=== PATIENT | female | born 2000 | race Caucasian/White ===

== ENCOUNTER 2023-07-18 07:06 | Outpatient (CLI) | payer MEDICAID, SELFPAY ==
--- OUTSIDE RECORDS SUMMARY | 2023-07-18 07:10 | XMS_ITS | Clinical Summary ---
Author Name Unknown Organization [facility] s & [facility] Address [place], [place] [address] Care Team Providers Care Director Of Automation Name Role Phone None Primary Care Provider Unavailabl e Allergies No known active allergies Medications Medication Sig Dispensed Refills Start Date End Date Status ondansetron (ZOFRAN ODT) 4 mg disintegrating tabletIndications:Abdom inal pain during , first trimester,Nausea Place 1 Tablet (4 mg) on the tongue every 8 hours if needed for Nausea/Vomiting . 12 Tablet 06/24/2023 Active Encounters Date Type Department Care Team Description 06/24/2023 3:44 PM CDT - 06/24/2023 7:50 PM CDT Emergency [facility] [address] [place] [address] Una Franks NP Abdominal pain during , first trimester (Primary Dx); Nausea Discharge Disposition: Home Self Care 06/24/2023 Travel from Last 3 Months Social History Tobacco Use Types Packs/Day Years Used Date Smoking Tobacco: Never Smokeless Tobacco: Never Tobacco Cessation:Counseling Given: Not Answered Alcohol Use Standard Drinks/Week Comments Never 0 (1 standard drink = 0.6 oz pur e alcohol) Sex and Gender Information Value Date Recorded Sex Assigned at Not on file Gender Identity Not on file Sexual Orientation Not on file Obstetrics History Last Filed Vital Signs Vital Sign Reading Time Taken Comments Blood Pressure 105/59 06/24/2023 7:14 PM CDT Pulse 66 06/24/2023 7:14 PM CDT Temperature 37 ??C (98.6 ??F) 06/24/2023 3:49 PM CDT Respiratory Rate 18 06/24/2023 3:49 PM CDT Oxygen Saturation 100% 06/24/2023 7:14 PM CDT Inhaled Oxygen Concentration - - Weight 70.8 kg (156 lb) 06/24/2023 3:49 PM CDT Height 154.9 cm (5' 1) 06/24/2023 4:01 PM CDT Body Mass Index 29.48 06/24/2023 3:49 PM CDT Plan of Treatment Not on file Procedures Procedure Name Priority Date/Time Associated Diagnosis Comments US OB 1ST TRI TWINS TA AND TV STAT 06/24/2023 6:18 PM CDT RH(D) TYPE STAT 06/24/2023 4:30 PM CDT CBC WITH AUTO DIFFERENTIAL STAT 06/24/2023 4:30 PM CDT BASIC METABOLIC PANEL STAT 06/24/2023 4:30 PM CDT CBC WITH AUTO DIFFERENTIAL STAT 06/24/2023 4:30 PM CDT HCG BETA QUANT, STAT 06/24/2023 4:30 PM CDT URINE STAT 06/24/2023 4:01 PM CDT UA W/ SEDIMENT EXAM REFLEXED PER CRITERIA STAT 06/24/2023 4:01 PM CDT from Last 3 Months Results * US OB 1ST TRI TWINS TA AND TV (06/24/2023 6:18 PM CDT) Anatomical Region Laterality Modality Ultrasound 06/24/2023 7:36 PM CDT Impressions 06/24/2023 7:36 PM CDT Viable twin intrauterine . Small subchorionic hemorrhage. No other abnormality. Dictated by Darrius Argueta MD @ 06/24/2023 7:36:39 PM (Electronically Signed) Narrative 06/24/2023 7:36 PM CDT For Patients: ??As a result of the Cures Act, medical imaging exams and procedure reports are released immediately into your electronic medical record. ??You may view this report before your referring provider. ??If you have questions, please contact your health care provider. INDICATION: First trimester dates and size. TECHNIQUE: Ultrasound OB pelvis transabdominal and transvaginal. Real-time ramírez-scale imaging of the pelvis was performed. COMPARISON: None. FINDINGS: Sonographic imaging demonstrates a twin intrauterine gestation. Fetus A demonstrates a regular cardiac rate measuring 132 beats per minute. The embryo`s crown rump length measurement of 0.8 cm corresponds to a gestational age of 6 weeks 6 days with a sonographic due date of February 11, 2024. Fetus B demonstrates a regular cardiac rate measuring 132 beats per minute. The embryo`s crown rump length measurement of 0.7 cm corresponds to a gestational age of 6 weeks 5 days with a sonographic due date of February 12, 2024. There are 2 normal-appearing yolk sacs. There are no gross abnormalities noted within the embryos at this early state of development. The placenta has not yet developed. There is a small perigestational hemorrhage. The ovaries are of normal size. There are no suspicious fluid collections noted in the cul-de-sac. Procedure Note Darrius Argueta MD - 06/24/2023 For Patients: As a result of the Century Cures Act, medical imagingexams and procedure reports are released immediately into your electronicmedical record. You may view this report before your referring provider.If you have questions, please contact your health care provider. INDICATION: First trimester dates and size. TECHNIQUE: Ultrasound OB pelvis transabdominal and transvaginal. Real-time ramírez- scaleimaging of the pelvis was performed. COMPARISON: None. FINDINGS: Sonographic imaging demonstrates a twin intrauterine gestation. Fetus A demonstrates a regular cardiac rate measuring 132 beats perminute. The embryo`s crown rump length measurement of 0.8 cm correspondsto a gestational age of 6 weeks 6 days with a sonographic due date ofFebruary 11, 2024. Fetus B demonstrates a regular cardiac rate measuring 132 beats perminute. The embryo`s crown rump length measurement of 0.7 cm correspondsto a gestational age of 6 weeks 5 days with a sonographic due date ofFebruary 12, 2024. There are 2 normal-appearing yolk sacs. There are no gross abnormalitiesnoted within the embryos at this early state of development. The placentahas not yet developed. There is a small perigestational hemorrhage. The ovaries are of normal size. There are no suspicious fluid collectionsnoted in the cul-de-sac. IMPRESSION: Viable twin intrauterine . Small subchorionic hemorrhage. Noother abnormality. Dictated by Darrius Argueta MD @ 06/24/2023 7:36:39 PM (Electronically Signed) Una Franks HOUSEKEEPING WORKER US * CBC WITH AUTO DIFFERENTIAL (06/24/2023 4:30 PM CDT) WHITE BLOOD COUNT 10.2 4.5 - 11.0 thou/cu mm 06/24/2023 4:39 PM [facility] RED BLOOD COUNT 4.34 4.00 - 5.20 mil/cu mm 06/24/2023 4:39 PM [facility] HEMOGLOBIN 12.7 12.0 - 16.0 g/dL 06/24/2023 4:39 PM [facility] HEMATOCRIT 37.0 33.0 - 51.0 % 06/24/2023 4:39 PM [facility] MCV 85 80 - 100 fL 06/24/2023 4:39 PM [facility] MCH 29.3 26.0 - 34.0 pg 06/24/2023 4:39 PM [facility] MCHC 34.3 32.0 - 36.0 g/dL 06/24/2023 4:39 PM [facility] RDW 12.5 11.5 - 15.5 % 06/24/2023 4:39 PM [facility] PLATELET COUNT 265 140 - 440 thou/cu mm 06/24/2023 4:39 PM [facility] MPV 10.2 6.5 - 11.0 fL 06/24/2023 4:39 PM [facility] % NEUT 66.9 % 06/24/2023 4:39 PM [facility] % LYMPH 23.4 % 06/24/2023 4:39 PM [facility] % MONO 5.6 % 06/24/2023 4:[address] [facility] % EOS 3.6 % 06/24/2023 4:[address] [facility] % BASO 0.5 % 06/24/2023 4:[address] [facility] ABSOLUTE NEUTROPHILS 6.8 1.7 - 7.0 thou/cu mm 06/24/2023 4:[address] [facility] ABSOLUTE LYMPHOCYTES 2.4 0.9 - 2.9 thou/cu mm 06/24/2023 4:[address] [facility] ABSOLUTE MONOCYTES 0.6 <0.9 thou/cu mm 06/24/2023 4:[address] [facility] ABSOLUTE EOSINOPHILS 0.4 <0.5 thou/cu mm 06/24/2023 4:[address] [facility] ABSOLUTE BASOPHILS 0.1 <0.3 thou/cu mm 06/24/2023 4:[address] [facility] Blood BLOOD SPECIMEN / Unknown Venipuncture / Unknown 06/24/2023 4:30 PM CDT 06/24/2023 4:35 PM CDT Una Franks NP HEMATOLOGY [facility] [address] [place] [address] * RH(D) TYPE (06/24/2023 4:30 PM CDT) RH(D) TYPE Positive 06/24/2023 4:[address] [facility] BLOOD BANK Blood BLOOD SPECIMEN / Unknown Venipuncture / Unknown 06/24/2023 4:30 PM CDT 06/24/2023 4:35 PM CDT Una Franks NP BLOOD BANK [facility] BLOOD BANK [address] [place] [address] * HCG BETA QUANT, (06/24/2023 4:30 PM CDT) HCG BETA QUANT,PREGNANC Y 46,241 mIU/mL 06/24/2023 5:[address] [facility] Blood BLOOD SPECIMEN / Unknown Venipuncture / Unknown 06/24/2023 4:30 PM CDT 06/24/2023 4:35 PM CDT [facility] - 06/24/2023 5:28 PM CDT Expected Value for Healthy Non- premenopausal women <5.3mIU/mL FOR GESTATIONAL ASSESSMENT-See Range Table Below Weeks of gestation hCG mIU/mL 3 weeks gestation (5.8 - 71.2) 4 weeks gestation (9.5 - 750) 5 weeks gestation (217 - 7138) 6 weeks gestation (158 - 31,795) 7 weeks gestation (3,697 - 163,563) 8 weeks gestation (32,065 - 149,571) 9 weeks gestation (63,803 - 151,410) 10 weeks gestation (46,509 - 186,977) 12 weeks gestation (27,832 - 210,612) 14 weeks gestation (13,950 - 62,530) 15 weeks gestation (12,039 - 70,971) 16 weeks gestation (9,040 - 56,451) 17 weeks gestation (8,175 - 55,868) 18 weeks gestation (8,099 - 58,176) Biotin supplements may cause clinically significant interference for this test assay. ??If interference is suspected, it is strongly recommended that biotin is discontinued for at least one week prior to retesting. Una Franks NP CHEMISTRY [facility] [address] [place] [address] * BASIC METABOLIC PANEL (06/24/2023 4:30 PM CDT) Pathologist [facility] SODIUM 137 136 - 145 mmol/L 06/24/2023 4:[address] [facility] POTASSIUM 3.9 3.5 - 5.1 mmol/L 06/24/2023 4:56 PM [facility] CHLORIDE 102 98 - 107 mmol/L 06/24/2023 4:56 PM [facility] CO2,TOTAL 24 22 - 29 mmol/L 06/24/2023 4:56 PM [facility] ANION GAP 11 5 - 18 06/24/2023 4:56 PM [facility] GLUCOSE 76 70 - 99 mg/dL 06/24/2023 4:56 PM [facility] CALCIUM 10.0 8.6 - 10.0 mg/dL 06/24/2023 4:56 PM [facility] BUN 8 6 - 20 mg/dL 06/24/2023 4:56 PM [facility] CREATININE 0.66 0.50 - 0.90 mg/dL 06/24/2023 4:56 PM [facility] BUN/CREAT RATIO 12 10 - 20 4:56 PM [facility] eGFR >90 >90 mL/min/1.7 3m2 06/24/2023 4:56 PM [facility] Comment:As of 2021, eG FR is calculated by the CKD-EPI creatinine equation without race adjustment. ??eGFR can be influenced by muscle mass, exercise, and diet. ??The reported eGFR is an estimation only and is only applicable if the renal function is stable. Blood BLOOD SPECIMEN / Unknown Venipuncture / Unknown 06/24/2023 4:30 PM CDT 06/24/2023 4:35 PM CDT Una Franks NP CHEMISTRY [facility] [address] [place], [place] [id number] * (ABNORMAL) UA W/ SEDIMENT EXAM REFLEXED PER CRITERIA (06/24/2023 4:01 PM CDT) COLOR Yellow Yellow Color 06/24/2023 4:[address] [facility] CLARITY Clear Clear Clarity 06/24/2023 4:[address] [facility] SPECIFIC GRAVITY,URINE <=1.005(A) 1.010, 1.015, 1.020, 1.025 06/24/2023 4:[address] [facility] PH,URINE 6.0 6.0, 7.0, 8.0, 5.5, 6.5, 7.5, 8.5 06/24/2023 4:14 PM [facility] UROBILINOGEN, QUALITATIVE Normal Normal EU/dl 06/24/2023 4:14 PM [facility] PROTEIN, URINE Negative Negative mg/dL 06/24/2023 4:14 PM [facility] GLUCOSE, URINE Negative Negative mg/dL 06/24/2023 4:14 PM [facility] KETONES,URINE Negative Negative mg/dL 06/24/2023 4:[address] [facility] BILIRUBIN,URI NE Negative Negative 06/24/2023 4:14 PM [facility] OCCULT BLOOD,URINE Negative Negative 06/24/2023 4:14 PM [facility] NITRITE Negative Negative 06/24/2023 4:14 PM [facility] LEUKOCYTE ESTERASE Negative Negative 06/24/2023 4:14 PM [facility] Urine URINE SPECIMEN / Unknown Non-Blood / Unknown 06/24/2023 4:01 PM CDT 06/24/2023 4:07 PM CDT Una Franks NP URINE [facility] [address] [place] [address] * (ABNORMAL) URINE (06/24/2023 4:01 PM CDT) ,URIN E Positive(P ositive) Negative 06/24/2023 4:[address] [facility] Comment:Is Rh typing necessa ry? Urine URINE SPECIMEN / Unknown Non-Blood / Unknown 06/24/2023 4:01 PM CDT 06/24/2023 4:07 PM CDT Una Franks HOUSEKEEPING WORKER URINE [facility] [address] [place] [address] from Last 3 Months Care Teams Director Of Automation Relationship Specialty Start Date End Date None . PCP - General 06/23/23
--- NOTE | 2023-07-18 07:15 | US_ITS ---
Patient: KRISTYN DOMÍNGUEZ Facility:?[facility] Patient ID:?[id number] Site Patient ID:?[id number]. Site :?[id number] Study:?US-OB Pelvis DATING AND VIABILITY-07/18/2023 8:04:47 AM Ordering Physician:?ZEINAB GILL Final Report: INDICATION: Dating and viability. TECHNIQUE: Ultrasound OB pelvis transvaginal. Real-time ramírez-scale imaging of the pelvis was performed. COMPARISON: None. FINDINGS: There is a twin intrauterine gestation. A single gestational sac is visualized and there is a T-sign without definite intervening chorion at the inter twin membrane suggesting a monochorionic . There are 2 separate yolk sacs which each measure 5 mm. Baby A heart rate is regular measuring 171 beats per minute. Baby B heart rate is regular measuring 163 beats per minute. Baby A`s crown rump length measurement of 3.5 cm corresponds to a gestational age of 10 weeks 3 days with a sonographic due date of 02/10/2024. Baby B`s crown rump length measurement is also 3.5 cm corresponds to a gestational age of 10 weeks 3 days with a sonographic due date of 02/10/2024. The ovaries are of normal size. Corpus luteum is seen within the right ovary measuring 1.4 x 1.3 x 1.3 cm. There are no suspicious fluid collections noted in the cul-de-sac. IMPRESSION: Single viable intrauterine monochorionic diamniotic twin with sonographic gestational age of 10 weeks 3 days via crown-rump length of baby A and baby B. Dictated by Chen Redding MD @ 07/18/2023 3:26:51 PM Signed by:?Chen Redding MD @07/18/2023 3:26:51 PM (Electronic Signature)
== END 2023-07-18 07:07 | disposition home or self-care (01) ==
PROVIDERS: Visit Provider Physician Assistant
DX: Z34.90 Encounter for supervision of normal pregnancy, unspecified, unspecified trimester (principal); O30.031 Twin pregnancy, monochorionic/diamniotic, first trimester; Z3A.10 10 weeks gestation of pregnancy
CPT/HCPCS: 76817; T1013

== ENCOUNTER 2023-07-18 09:24 | Outpatient (CLI) | payer MEDICAID, SELFPAY ==
--- OUTSIDE RECORDS SUMMARY | 2023-07-18 09:28 | XMS_ITS | Clinical Summary ---
Author Name Unknown Organization [facility] Address [place], [place] [address] Care Team Providers Care Management Assistant Name Role Phone None Primary Care Provider [...] CDT - 06/24/2023 7:50 PM CDT Emergency [facility] [address] [place] [address] Una Franks NP Abdominal pain during , [...] 06/24/2023 7:36:39 PM (Electronically Signed) Una Franks ASSOCIATE DEAN US * CBC WITH AUTO DIFFERENTIAL (06/24/2023 4:30 PM CDT) WHITE BLOOD COUNT 10.2 4.5 - 11.0 thou/cu mm 06/24/2023 4:39 PM [facility] RED BLOOD COUNT 4.34 4.00 - 5.20 mil/cu mm 06/24/2023 4:39 PM [facility] HEMOGLOBIN 12.7 12.0 - 16.0 g/dL 06/24/2023 4:39 PM [facility] HEMATOCRIT 37.0 33.0 - 51.0 % 06/24/2023 4:39 PM [facility] MCV 85 80 - 100 fL 06/24/2023 4:39 PM [facility] MCH 29.3 26.0 - 34.0 pg 06/24/2023 4:39 PM [facility] MCHC 34.3 32.0 - 36.0 g/dL 06/24/2023 4:39 PM [facility] RDW 12.5 11.5 - 15.5 % 06/24/2023 4:39 PM [facility] PLATELET COUNT 265 140 - 440 thou/cu mm 06/24/2023 4:39 PM [facility] MPV 10.2 6.5 - 11.0 fL 06/24/2023 4:39 PM [facility] % NEUT 66.9 % 06/24/2023 4:39 PM [facility] % LYMPH 23.4 % 06/24/2023 4:39 PM [facility] % MONO 5.6 % 06/24/2023 4:39 PM CDT [facility] % EOS 3.6 % 06/24/2023 4:39 PM CDT [facility] % BASO 0.5 % 06/24/2023 4:39 PM CDT [facility] ABSOLUTE NEUTROPHILS 6.8 1.7 - 7.0 thou/cu mm 06/24/2023 4:39 PM CDT [facility] ABSOLUTE LYMPHOCYTES 2.4 0.9 - 2.9 thou/cu mm 06/24/2023 4:39 PM CDT [facility] ABSOLUTE MONOCYTES 0.6 <0.9 thou/cu mm 06/24/2023 4:39 PM CDT [facility] ABSOLUTE EOSINOPHILS 0.4 <0.5 thou/cu mm 06/24/2023 4:39 PM CDT [facility] ABSOLUTE BASOPHILS 0.1 <0.3 thou/cu mm 06/24/2023 4:39 PM CDT [facility] Blood BLOOD SPECIMEN / Unknown Venipuncture / Unknown 06/24/2023 4:30 PM CDT 06/24/2023 4:35 PM CDT Una Franks NP HEMATOLOGY [facility] [address] [place] [address] * RH(D) TYPE (06/24/2023 4:30 PM CDT) RH(D) TYPE Positive 06/24/2023 4:54 PM CDT [facility] BLOOD BANK Blood BLOOD SPECIMEN / Unknown Venipuncture / Unknown 06/24/2023 4:30 PM CDT 06/24/2023 4:35 PM CDT Una Franks NP BLOOD BANK [facility] BLOOD BANK [address] [place] [address] * HCG BETA QUANT, (06/24/2023 4:30 PM CDT) HCG BETA QUANT,PREGNANC Y 46,241 mIU/mL 06/24/2023 5:28 PM CDT [facility] Blood BLOOD SPECIMEN / Unknown Venipuncture / Unknown 06/24/2023 4:30 PM CDT 06/24/2023 4:35 PM CDT [facility] - 06/24/2023 5:28 PM CDT Expected [...] prior to retesting. Una Franks NP CHEMISTRY [facility] [address] [place] [address] * BASIC METABOLIC PANEL (06/24/2023 4:30 PM CDT) Pathologist [facility] SODIUM 137 136 - 145 mmol/L 06/24/2023 4:56 PM CDT [facility] POTASSIUM 3.9 3.5 - 5.1 mmol/L 06/24/2023 4:56 PM [facility] CHLORIDE 102 98 - 107 mmol/L 06/24/2023 4:56 PM [facility] CO2,TOTAL 24 22 - 29 mmol/L 06/24/2023 4:56 PM [facility] ANION GAP 11 5 - 18 06/24/2023 4:56 PM [facility] GLUCOSE 76 70 - 99 mg/dL 06/24/2023 4:56 PM [facility] CALCIUM 10.0 8.6 - 10.0 mg/dL 06/24/2023 4:56 PM [facility] BUN 8 6 - 20 mg/dL 06/24/2023 4:56 PM [facility] CREATININE 0.66 0.50 - 0.90 mg/dL 06/24/2023 4:56 PM [facility] BUN/CREAT RATIO 12 10 - 20 4:56 PM [facility] eGFR >90 >90 mL/min/1.7 3m2 06/24/2023 4:56 PM [facility] Comment:As of 2021, eG FR is calculated by the CKD-EPI creatinine equation without race adjustment. ??eGFR can be influenced by muscle mass, exercise, and diet. ??The reported eGFR is an estimation only and is only applicable if the renal function is stable. Blood BLOOD SPECIMEN / Unknown Venipuncture / Unknown 06/24/2023 4:30 PM CDT 06/24/2023 4:35 PM CDT Una Franks NP CHEMISTRY [facility] [address] [place], [place] [phone] * (ABNORMAL) UA W/ SEDIMENT EXAM REFLEXED PER CRITERIA (06/24/2023 4:01 PM CDT) COLOR Yellow Yellow Color 06/24/2023 4:14 PM T [facility] CLARITY Clear Clear Clarity 06/24/2023 4:14 PM T [facility] SPECIFIC GRAVITY,URINE <=1.005(A) 1.010, 1.015, 1.020, 1.025 06/24/2023 4:14 PM T [facility] PH,URINE 6.0 6.0, 7.0, 8.0, 5.5, 6.5, 7.5, 8.5 06/24/2023 4:14 PM [facility] UROBILINOGEN, QUALITATIVE Normal Normal EU/dl 06/24/2023 4:14 PM [facility] PROTEIN, URINE Negative Negative mg/dL 06/24/2023 4:14 PM [facility] GLUCOSE, URINE Negative Negative mg/dL 06/24/2023 4:14 PM [facility] KETONES,URINE Negative Negative mg/dL 06/24/2023 4:14 PM T [facility] BILIRUBIN,URI NE Negative Negative 06/24/2023 4:14 PM [facility] OCCULT BLOOD,URINE Negative Negative 06/24/2023 4:14 PM [facility] NITRITE Negative Negative 06/24/2023 4:14 PM [facility] LEUKOCYTE ESTERASE Negative Negative 06/24/2023 4:14 PM [facility] Urine URINE SPECIMEN / Unknown Non-Blood / Unknown 06/24/2023 4:01 PM CDT 06/24/2023 4:07 PM CDT Una Franks NP URINE [facility] [address] [place] [address] * (ABNORMAL) URINE (06/24/2023 4:01 PM CDT) ,URIN E Positive(P ositive) Negative 06/24/2023 4:14 PM T [facility] Comment:Is Rh typing necessa ry? Urine URINE SPECIMEN / Unknown Non-Blood / Unknown 06/24/2023 4:01 PM CDT 06/24/2023 4:07 PM CDT Una Franks ASSOCIATE DEAN URINE [facility] [address] [place] [address] from Last 3 Months Care Teams Management Assistant Relationship Specialty Start Date End Date None . PCP - General 06/23/23
[2023-07-18 13:18] LABS: Chlamydia DNA Amplified* NOT DETECTED (No Detected); GC DNA Amplified* NOT DETECTED (No Detected)
== END 2023-07-18 09:25 | disposition home or self-care (01) ==
PROVIDERS: Visit Provider Advanced Practice Midwife
DX: Z34.91 Encounter for supervision of normal pregnancy, unspecified, first trimester (principal); O30.041 Twin pregnancy, dichorionic/diamniotic, first trimester; Z3A.10 10 weeks gestation of pregnancy
CPT/HCPCS: 76817; 86592; 86703; 86704; 86706; 86762; 86787; 86803; 86850; 86900; 86901; 87086; 87340; 87491; 87591

== ENCOUNTER 2023-08-15 14:53 | Outpatient (CLI) | payer OTHER, SELFPAY ==
--- OUTSIDE RECORDS SUMMARY | 2023-09-01 22:24 | XMS_ITS | Clinical Summary ---
Author Organization [facility] Address [address] [place] [address] Care Team Providers Care Skip Hoist Engineer Name Role Phone No Ref-Primary, Physician Primary Care Provider Mica Aguilar MD Unavailable [phone] Encounters Date Type Department Care Team Description 08/29/2023 2:00 PM CDT Office Visit [facility] [address] [place] [address] Mcia Aguilar MD Rauk, Case Seals MD 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 (Primary Dx) 08/29/2023 1:19 PM CDT - 08/29/2023 11:59 PM CDT Hospital Encounter [facility] [address] [place] [address] Mica Aguilar MD Rauk, Case Seals MD 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 Discharge Disposition: Home or Self Care 08/29/2023 Travel 08/25/2023 Telephone [facility] [address] [place] [address] Nelsy Diaz GC Results (Expanded Carrier Screening with her partner) 08/14/2023 Telephone [facility] [address] [place] [address] Nelsy Diaz GC Results (Low Risk NIPT ) 08/08/2023 12:30 PM CDT Lab [facility] [address] [place] [address] Mica Aguilar MD screening encounter; Encounter of female for testing for genetic disease carrier status for procreative management 08/08/2023 11:45 AM CDT Office Visit [facility] [address] [facility] [address] [place] [address] Mica Aguilar MD 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 (Primary Dx) 08/08/2023 10:15 AM CDT Office Visit [facility] [address] [facility] [address] [place] [phone] Mica Aguilar MD Daykin, Emily C, GC screening encounter (Primary Dx); 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; Encounter of female for testing for genetic disease carrier status for procreative management 08/08/2023 9:58 AM CDT - 08/08/2023 11:59 PM CDT Hospital Encounter [facility] [place] [address] [facility] [address] [place] [phone] Mica Aguilar MD 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 Discharge Disposition: Home or Self Care 08/08/2023 Travel 08/01/2023 PRE VISIT [facility] Medicine [place] [address] [facility] [address] [place] [phone] Karie Barrow RN Genetic Counseling ([place]/di twins, screening); Ultrasound (NT); Consult ([place]/di twins) 07/22/2023 Orders Only [facility] [address] [place] [address] Ashley Hassan RN 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 (Primary Dx) 07/22/2023 Transcribe Orders [facility] [place] [address] [facility] [address] [place] [address] Raya [place] CNM related condition, antepartum (Primary Dx) 07/18/2023 Medical Correspondence [facility] [address] [place] [address] Scan, Non-Provider from Last 3 Months Social History Tobacco Use Types Packs/Day Years Used Date Smoking Tobacco: Never Assessed Adolescent Education Answer Date Record ed Getting School Help Needed Not on file 07/21 Estimated Date of Delivery Comme nts Yes 02/10/2024 Based on Ultraso und Sex and Gender Information Value Date Recorded Sex Assigned at Not on file Gender Identity Not on file Sexual Orientation Not on file Last Filed Vital Signs Vital Sign Reading Time Taken Comments Blood Pressure 110/65 08/08/2023 11:46 AM CDT Pulse 84 08/08/2023 11:46 AM CDT Temperature - - Respiratory Rate 20 08/08/2023 11:46 AM CDT Oxygen Saturation 100% 08/08/2023 11:46 AM CDT Inhaled Oxygen Concentration - - Weight - - Height - - Body Mass Index - - Plan of Treatment Upcoming Encounters Date Type Department Care Team (Late st Contact Info) Description 09/05/2023 11:30 AM CDT Virtual Visit [facility] Insurance Verification 09/12/2023 2:15 PM CDT Appointment [facility] [place] [address] [facility] [address] [place] [address] Mica Aguilar MD [address] [place] [address] Angelica Wright MD [address] [place] [address] 09/12/2023 2:45 PM CDT Office Visit [facility] [place] [address] [facility] [address] [place] [address] Mica Aguilar MD [address] [place], [place] [address] Angelica Wright MD [address] [place] [address] 09/26/2023 1:30 PM CDT Appointment [facility] [address] [place] [phone] Mica Aguilar MD [address] [address] 09/26/2023 2:45 PM CDT Office Visit [facility] [address] [place] [phone] Mica Aguilar MD [address] [address] 10/10/2023 12:00 PM CDT Appointment [facility] [address] [place] [phone] Mica Aguilar MD [address] 9[address] 10/10/2023 1:00 PM CDT Appointment [facility] [address] [place] [phone] Mica Aguilar MD [address] [id number] 10/10/2023 2:15 PM CDT Appointment [facility] [address] [place] [phone] Mica Aguilar MD [address] [place] [address] 10/10/2023 2:45 PM CDT Office Visit [facility] [place] [address] [place] [address] Mica Aguilar MD [address] [place] [address] Health Maintenance Due Date Last Done Comments ADVANCE CARE PLANNING 2000 ANNUAL REVIEW OF HM ORDERS 2000 CHLAMYDIA SCREENING 2000 YEARLY PREVENTIVE VISIT 2000 IPV IMMUNIZATION (3 of 3 - 4-dose series) 04/27/2015 10/25/2014, 05/06/2014 HIV SCREENING 10/12/2015 HPV IMMUNIZATION (1 - 3-dose series) 10/12/2015 HEPATITIS C SCREENING 2018 PAP 2021 COVID-19 Vaccine (1 - 2022-2 4 season) 2022 PHQ-2 (once per calendar year) 2023 INFLUENZA VACCINE (Season Ended) 2023 03/29/2014 RSV VACCINE ( & 60+ ) (1 - Risk 1-dose series) 12/16/2023 DTAP/TDAP/TD IMMUNIZATION (4 - Td or Tdap) 11/22/2024 11/22/2014, 05/06/2014, 03/29/2014 MENINGITIS IMMUNIZATION Aged Out 03/29/2014 No l onger eligible based on patient's age to complete this topic HEPATITIS B IMMUNIZATION Completed 015, 05/06/2014, 04/08/2014 MATERNAL SCREENING DISCUSSION Completed 08/08/2023 Pneumococcal Vaccine: Pediatrics (0 to 5 Years) and At-Risk Patients (6 to 64 Years) Aged Out No longer eligible b ased on patient's age to complete this topic RSV MONOCLONAL ANTIBODY Aged Out No l onger eligible based on patient's age to complete this topic Procedures Procedure Name Priority Date/Time Associated Diagnosis Comments MFM TWINS US OB COMPLETE 2/3 TRI Routine 08/29/2023 2:47 PM CDT 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 LABORATORY MISCELLANEOUS ORDER Routine 08/08/2023 12:45 PM CDT Encounter of female for testing for genetic disease carrier status for procreative management [facility] NON-INVASIVE SCREENING PREQUEL Routine 08/08/2023 12:45 PM CDT screening encounter MFM TWINS NUCHAL TRANSLUCENCY W US Routine 08/08/2023 11:54 AM CDT 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 from Last 3 Months Results * MFM Twins US OB Complete 2/3 Tri (08/29/2023 2:47 PM CDT) Anatomical Region Laterality Modality Ultrasound 08/29/2023 1:33 PM CDT Impressions 08/29/2023 3:02 PM CDT IMPRESSION ----- Monochorionic diamniotic twins at 16w 3d gestational age. Fetus 1 1. No anomalies commonly detected by ultrasound were identified in the anatomic survey within the limits of early ultrasound. 2. Growth parameters and estimated weight were consistent with gestational age predicted by assigned FERNANDO. 3. The amniotic fluid volume appeared normal. A normal bladder was visualized. 4. The umbilical artery Doppler studies were within normal limits. 5. The middle cerebral artery Doppler studies were within normal limits. Fetus 2 1. No anomalies commonly detected by ultrasound were identified in the anatomic survey within the limits of early ultrasound. 2. Growth parameters and estimated weight were consistent with gestational age predicted by assigned FERNANDO. 3. The amniotic fluid volume appeared normal. A normal bladder was visualized. 4. The umbilical artery Doppler studies were within normal limits. 5. The middle cerebral artery Doppler studies were within normal limits. The inter-twin discordance is 10%. There is no evidence for TTTS/TAPS. Narrative 08/29/2023 3:02 PM CDT ? Trim ----- Pat. Name: ROLANDO VILLEGAS KYARA ? Study Date: ??08/29/2023 1:33pm Pat. NO: ??[id number] ?Referring ??MD: RAYA CARSON Site: ? Log Check Scaler: Carmen Zurita RDMS : ??2000 ?Age: ?? 22 ----- INDICATION ----- Monochorionic, Diamniotic Twin gestation METHOD ----- Transabdominal ultrasound examination. View: Sufficient. ----- Twin . Number of fetuses: 2. Dichorionic-diamniotic DATING ----- ? Date ?Details ?Gest. age ?FERNANDO LMP ?04/29/2023 ?Cycle: irregular cycle ? 17 w + 3 d ? 02/03/2024 Previous U/S ?07/18/2023 ?GA, GA 10 w + 3 d ?16 w + 3 d ? 02/10/2024 U/S Fetus 1 ? 08/29/2023 ? based upon AC, BPD, Femur, HC ?16 w + 0 d ? 02/13/2024 U/S Fetus 2 ?based upon AC, BPD, Femur, HC ?16 w + 2 d ? 02/11/2024 Assigned dating ?based on ultrasound (GA), selected on 08/29/2023 ?16 w + 3 d ? 02/10/2024 Fetus 1: GENERAL EVALUATION ----- Cardiac activity present. FHR 158 bpm. movements: visualized. Presentation: breech, presenting, maternal right Placenta: anterior, thin dividing membrane, no previa > 2 cm from internal os Umbilical cord: Cord vessels: 3 vessel cord. Insertion site: marginal insertion Amniotic fluid: Amount of AF: normal. MVP 5.4 cm Fetus 2: GENERAL EVALUATION ----- Cardiac activity present. FHR 142 bpm. movements: visualized. Presentation: breech, maternal left Placenta: anterior, thin dividing membrane Umbilical cord: Cord vessels: 3 vessel cord. Insertion site: normal insertion Amniotic fluid: Amount of AF: normal. MVP 2.6 cm Fetus 1: BIOMETRY ----- BPD ? 33.5 ?mm ? 16w 3d ?Valentino SANTACRUZ ? 42.5 ?mm ? 15w 1d ?Nicolaides HC ? 121.0 ?mm ? 16w 0d ? Hadlock Cerebellum tr ?15.8 ?mm ? 15w 6d ? Nicolaides Nuchal fold ?2.0 ? mm AC ? 99.2 ?mm ? 16w 0d ? 34% ? Hadlock Femur ?18.7 ?mm ? 15w 4d ? Hadlock Humerus ? 19.9 ? mm ?15w 6d ?Celestina Weight Calculation: EFW ?135 ? g ? 12% ?Hadlock EFW (lb,oz) ?0 lb 5 ?oz EFW by ?Hadlock ([id number]) EFW discordance ?10.2 ?% Head / Face / Neck Biometry: CM ? 4.6 ? mm Nasal bone ? 4.1 ?mm Fetus 2: BIOMETRY ----- BPD ? 33.2 ?mm ? 16w 2d ?Hadlock OFD ? 42.0 ?mm ? 15w 0d ?Nicolaides HC ? 120.9 ?mm ? 16w 0d ? Hadlock Cerebellum tr ?16.2 ?mm ? 16w 1d ? Nicolaides Nuchal fold ?2.2 ? mm AC ? 101.3 ?mm ? 16w 1d ?40% ?Hadlock Femur ?21.6 ?mm ? 16w 3d ? Hadlock Humerus ? 20.8 ? mm ?16w 1d ?Celestina Weight Calculation: EFW ?151 ? g ? 32% ?Hadlock EFW (lb,oz) ?0 lb 5 ?oz EFW by ?Hadlock ([id number]) EFW discordance ?10.2 ?% Head / Face / Neck Biometry: CM ? 2.7 ? mm Nasal bone ? 4.0 ?mm Fetus 1: ANATOMY ----- The following structures appear normal: Head / Neck ? Cranium. Head size. Head shape. Lateral ventricles. Choroid plexus. Midline falx. Cavum septi pellucidi. Cerebellum. Cisterna magna. ? Parenchyma. Thalami. Vermis. ? Neck. Nuchal fold. Face ? Lips. Profile. Nose. Orbits. Lens. Heart / Thorax ?4-chamber view. RVOT view. LVOT view. Situs. Aortic arch view. Bicaval view. Ductal arch view. Superior vena cava. Inferior vena cava. Cardiac ? position. Cardiac size. Cardiac rhythm. ? Right lung. Left lung. Diaphragm. Abdomen ? Abdom. wall. Cord insertion. Stomach. Kidneys. Bladder. Liver. Bowel. Genitals. Spine ?Cervical spine. Thoracic spine. Lumbar spine. Sacral spine. Extremities / Skeleton ?Arms. Right arm. Right hand. Left arm. Left hand. Legs. Right leg. Right foot. Left leg. Left foot. The following structures could not be adequately visualized: Face ? Maxilla. Mandible. The following structures could not be visualized: Heart / Thorax ?3-vessel view. 7-znydog-hpsqndo view. Fetus 2: ANATOMY ----- The following structures appear normal: Head / Neck ? Cranium. Head size. Head shape. Lateral ventricles. Choroid plexus. Midline falx. Cavum septi pellucidi. Cerebellum. Cisterna magna. ? Parenchyma. Thalami. ? Neck. Nuchal fold. Face ? Lips. Profile. Nose. Maxilla. Mandible. Orbits. Lens. Heart / Thorax ?4-chamber view. RVOT view. LVOT view. 3-vessel view. 0-hynvnl-szgnkgp view. Situs. Aortic arch view. Bicaval view. Ductal arch view. Superior ? vena cava. Inferior vena cava. Cardiac position. Cardiac size. Cardiac rhythm. ? Right lung. Left lung. Diaphragm. Abdomen ? Abdom. wall. Cord insertion. Stomach. Kidneys. Bladder. Liver. Bowel. Genitals. Extremities / Skeleton ?Arms. Right arm. Left arm. Left hand. Legs. Right leg. Right foot. Left leg. Left foot. The following structures could not be adequately visualized: Spine ?Cervical spine. Thoracic spine. Lumbar spine. Sacral spine. Conus medullaris. Extremities / Skeleton ?Right hand. Fetus 1: DOPPLER ----- Umbilical Artery: normal PI ? 1.45 HR ? 159 ? bpm Mid Cerebral Artery: normal PS ? 24.44 ?cm/s PS ? 1.13 ?MoM Fetus 2: DOPPLER ----- Umbilical Artery: normal PI ? 1.68 HR ? 147 ? bpm Mid Cerebral Artery: normal PS ? 18.72 ?cm/s PS ? 0.87 ?MoM MATERNAL STRUCTURES ----- Cervix ?Visualized ? Appearance: normal ? Approach - Transabdominal: Cervical length 41.0 mm Right Ovary ?Visualized Left Ovary ?Visualized RECOMMENDATION ----- We discussed the findings on today's ultrasound with the patient. The patient is scheduled to return to [facility] in 2 weeks to assess for TTTS/TAPS and in 4 weeks for a comprehensive ultrasound. Return to primary provider for continued care. Thank-you for the opportunity to participate in the care of this patient. If you have questions regarding today's evaluation or if we can be of further service, please contact the [facility] Center. anomalies may be present but not detected Procedure Note Case Berrios MD - 08/29/2023 ----- Pat. Name: KYARA MISHRA Study Date: 08/29/2023 1:33pm Pat. NO: [id number] Referring MD: RAYA CARSON Site: Log Check Scaler: Carmen Zurita RDMS : 2000 Age: 22 ----- INDICATION ----- Monochorionic, Diamniotic Twin gestation METHOD ----- Transabdominal ultrasound examination. View: Sufficient. ----- Twin . Number of fetuses: 2. Dichorionic-diamniotic DATING ----- DateDetailsGest. age FERNANDO LMP 04/29/2023ycle: irregular cycle17 w + 3 d 02/03/2024 Previous U/S 07/18/2023 GA, GA10 w + 3 d16 w + 3 d 02/10/2024 U/S Fetus 1 08/29/2023 basedupon AC, BPD, Femur, HC 16w + 0 d 02/13/2024 U/S Fetus 2based upon AC, BPD, Femur, HC16 w + 2 d 02/11/2024 Assigned dating based on ultrasound (GA), selected on08/29/2023 16w + 3 d 02/10/2024 Fetus 1: GENERAL EVALUATION ----- Cardiac activity present. FHR 158 bpm. movements: visualized.Presentation: breech, presenting, maternal right Placenta: anterior, thin dividing membrane, no previa > 2 cm from internalos Umbilical cord: Cord vessels: 3 vessel cord. Insertion site: marginalinsertion Amniotic fluid: Amount of AF: normal. MVP 5.4 cm Fetus 2: GENERAL EVALUATION ----- Cardiac activity present. FHR 142 bpm. movements: visualized.Presentation: breech, maternal left Placenta: anterior, thin dividing membrane Umbilical cord: Cord vessels: 3 vessel cord. Insertion site: normalinsertion Amniotic fluid: Amount of AF: normal. MVP 2.6 cm Fetus 1: BIOMETRY ----- BPD 33.5mm 16w 3dHadlock OFD 42.5mm 15w 1dNicolaides HC 121.0mm 16w 0dHadlock Cerebellum tr 15.8mm 15w 6dNicolaides Nuchal fold 2.0mm AC 99.2mm 16w 0d 34%Hadlock Femur 18.7mm 15w 4dHadlock Humerus 19.9mm 15w 6dJeanty Weight Calculation: EFW 135g 12%Hadlock EFW (lb,oz) 0 lb 5oz EFW by Hadlock([id number]) EFW discordance 10.2% Head / Face / Neck Biometry: CM 4.6mm Nasal bone 4.1mm Fetus 2: BIOMETRY ----- BPD 33.2mm 16w 2dHadlock OFD 42.0mm 15w 0dNicolaides HC 120.9mm 16w 0dHadlock Cerebellum tr 16.2mm 16w 1dNicolaides Nuchal fold 2.2mm AC 101.3mm 16w 1d 40%Hadlock Femur 21.6mm 16w 3dHadlock Humerus 20.8mm 16w 1dJeanty Weight Calculation: EFW 151g 32%Hadlock EFW (lb,oz) 0 lb 5oz EFW by Hadlock([id number]) EFW discordance 10.2% Head / Face / Neck Biometry: CM 2.7mm Nasal bone 4.0mm Fetus 1: ANATOMY ----- The following structures appear normal: Head / Neck Cranium. Head size. Head shape.Lateral ventricles. Choroid plexus. Midline falx. Cavum septi pellucidi.Cerebellum. Cisterna magna. Parenchyma. Thalami. Vermis. Neck. Nuchal fold. Face Lips. Profile. Nose. Orbits.Lens. Heart / Thorax 4-chamber view. RVOT view. LVOT view.Situs. Aortic arch view. Bicaval view. Ductal arch view. Superior venacava. Inferior vena cava. Cardiac position. Cardiac size. Cardiacrhythm. Right lung. Left lung.Diaphragm. Abdomen Abdom. wall. Cord insertion. Stomach.Kidneys. Bladder. Liver. Bowel. Genitals. Spine Cervical spine. Thoracic spine.Lumbar spine. Sacral spine. Extremities / Skeleton Arms. Right arm. Right hand. Left arm.Left hand. Legs. Right leg. Right foot. Left leg. Left foot. The following structures could not be adequately visualized: Face Maxilla. Mandible. The following structures could not be visualized: Heart / Thorax 3-vessel view. 9-gwqexs-btkriubjnjs. Fetus 2: ANATOMY ----- The following structures appear normal: Head / Neck Cranium. Head size. Head shape.Lateral ventricles. Choroid plexus. Midline falx. Cavum septi pellucidi.Cerebellum. Cisterna magna. Parenchyma. Thalami. Neck. Nuchal fold. Face Lips. Profile. Nose. Maxilla.Mandible. Orbits. Lens. Heart / Thorax 4-chamber view. RVOT view. LVOT view.3-vessel view. 0-shfexv-qoabprb view. Situs. Aortic arch view. Bicavalview. Ductal arch view. Superior vena cava. Inferior vena cava.Cardiac position. Cardiac size. Cardiac rhythm. Right lung. Left lung.Diaphragm. Abdomen Abdom. wall. Cord insertion. Stomach.Kidneys. Bladder. Liver. Bowel. Genitals. Extremities / Skeleton Arms. Right arm. Left arm. Left hand.Legs. Right leg. Right foot. Left leg. Left foot. The following structures could not be adequately visualized: Spine Cervical spine. Thoracic spine.Lumbar spine. Sacral spine. Conus medullaris. Extremities / Skeleton Right hand. Fetus 1: DOPPLER ----- Umbilical Artery: normal PI 1.45 HR 159bpm Mid Cerebral Artery: normal PS 24.44cm/s PS 1.13MoM Fetus 2: DOPPLER ----- Umbilical Artery: normal PI 1.68 HR 147bpm Mid Cerebral Artery: normal PS 18.72cm/s PS 0.87MoM MATERNAL STRUCTURES ----- Cervix Visualized Appearance: normal Approach - Transabdominal:Cervical length 41.0 mm Right Ovary Visualized Left Ovary Visualized RECOMMENDATION ----- We discussed the findings on today's ultrasound with the patient. The patient is scheduled to return to [facility] in 2 weeks to assess forTTTS/TAPS and in 4 weeks for a comprehensive ultrasound. Return to primary provider for continued care. Thank-you for the opportunity to participate in the care of this patient.If you have questions regarding today's evaluation or if we can be offurther service, please contact the [facility] Center. anomalies may be present but not detected IMPRESSION ----- Monochorionic diamniotic twins at 16w 3d gestational age. Fetus 1 1. No anomalies commonly detected by ultrasound were identified inthe anatomic survey within the limits of early prenatalultrasound. 2. Growth parameters and estimated weight were consistent withgestational age predicted by assigned FERNANDO. 3. The amniotic fluid volume appeared normal. A normal bladder wasvisualized. 4. The umbilical artery Doppler studies were within normal limits. 5. The middle cerebral artery Doppler studies were within normal limits. Fetus 2 1. No anomalies commonly detected by ultrasound were identified inthe anatomic survey within the limits of early prenatalultrasound. 2. Growth parameters and estimated weight were consistent withgestational age predicted by assigned FERNANDO. 3. The amniotic fluid volume appeared normal. A normal bladder wasvisualized. 4. The umbilical artery Doppler studies were within normal limits. 5. The middle cerebral artery Doppler studies were within normal limits. The inter-twin discordance is 10%. There is no evidence for TTTS/TAPS. Mica Aguilar MD [facility] ORDERABLE S * [facility] Non-Invasive Screening???Prequel (08/08/2023 12:45 PM CDT) See Scanned Result [facility] NON-INVASIVE SCREENING PREQUEL-Scann ed 08/14/2023 11:49 AM CDT e(ye)BRAIN Blood STRUCTURE OF RIGHT UPPER LIMB / Unknown Venipuncture / Unknown 08/08/2023 12:45 PM CDT 08/08/2023 12:45 PM CDT Nelsy Diaz GC LAB - BLOOD ORDERABL ES e(ye)BRAIN [address] [place], [place] [address] [phone] * (ABNORMAL) Other Laboratory; [facility]; [facility]un[facility] Expanded Carrier Screening (Laboratory Miscellaneous Order) (08/08/2023 12:45 PM CDT) See Scanned Result LABORATORY MISCELLANEOUS ORDER-Scanned(A) 08/20/2023 11:47 AM CDT MISCELLANEOUS TESTING Blood STRUCTURE OF RIGHT UPPER LIMB / Unknown Venipuncture / Unknown 08/08/2023 12:45 PM CDT 08/08/2023 12:45 PM CDT Nelsy Diaz GC LAB - BLOOD ORDERABL ES Performing Organization Address [facility]/ZIP Co de Phone Number MISCELLANEOUS TESTING * MFM Twins Nuchal Trans w/US (08/08/2023 11:54 AM CDT) Anatomical Region Laterality Modality Ultrasound 08/08/2023 11:0 6 AM CDT Impressions 08/08/2023 4:32 PM CDT IMPRESSION ----- 1. Monochorionic diamniotic twins at 13w 3d gestational age. 2. There is a single placenta with a thin intertwin membrane consistent with a monochorionic diamniotic twin . 3. Sonographic biometry agrees with gestational age predicted by assigned FERNANDO for both fetuses. 4. The nuchal translucency measurement is within the normal range in both fetuses. 5. The nasal bone was visualized in both twins. 6. Visualized anatomy appears normal for early gestational age. Narrative 08/08/2023 4:32 PM CDT ?NT ----- Pat. Name: KYARA MISHRA ? Study Date: ??08/08/2023 11:06am Pat. NO: ??[id number] ?Referring ??MD: RAYA CARSON Site: ??[facility] ? Log Check Scaler: Christopher Street RDMS : ??2000 ?Age: ?? 22 ----- INDICATION ----- Monochorionic, Diamniotic Twin gestation. Doing NIPT. METHOD ----- Transabdominal ultrasound examination. View: Sufficient. ----- Twin . Dichorionic-diamniotic. Number of fetuses: 2 DATING ----- ? Date ?Details ?Gest. age ?FERNANDO LMP ?04/29/2023 ?Cycle: irregular cycle ? 14 w + 3 d ? 02/03/2024 Prior assessment ? 07/18/2023 ? GA: 10 w + 3 d ?13 w + 3 d ? 02/10/2024 U/S Fetus 1 ? 08/08/2023 ? based upon CRL ?13 w + 2 d ? 02/11/2024 U/S Fetus 2 ?based upon CRL ? 13 w + 4 d ? 02/09/2024 Assigned dating ?Dating performed on 08/08/2023, based on the prior assessment (on 07/18/2023) ? 13 w + 3 d ? 02/10/2024 Fetus 1: GENERAL EVALUATION ----- Cardiac activity present. Placenta anterior, thin dividing membrane. Cord vessels normal insertion. Amniotic fluid normal amount. Fetus 2: GENERAL EVALUATION ----- Cardiac activity present. Placenta anterior, thin dividing membrane. Cord vessels normal insertion. Amniotic fluid normal. Fetus 1: BIOMETRY ----- FHR ?150 ? bpm CRL ? 70.7 ? mm ? 13w 2d ? Hadlock NT ? 2.00 ? mm Fetus 2: BIOMETRY ----- FHR ?155 ? bpm CRL ? 75.0 ? mm ? 13w 4d ? Hadlock NT ? 2.20 ? mm Fetus 1: ANATOMY ----- Face: Nasal bone present Neck: Normal Nuchal Translucency The following structures appear normal: Cranium. Abdominal wall. Stomach. Bladder. Arms. Legs. Fetus 2: ANATOMY ----- Face: Nasal bone present Neck: Normal Nuchal Translucency The following structures appear normal: Cranium. Abdominal wall. Stomach. Bladder. Arms. Legs. MATERNAL STRUCTURES ----- Cervix ?Visualized ? Appearance: Appears Closed Right Ovary ?Not visualized Left Ovary ?Visualized RECOMMENDATION ----- Thank-you for referring your patient for MFM consult & ultrasound assessment. We discussed the results of the ultrasound with the patient. Your patient had cell free DNA screening today. The results of this screen will be forwarded to you as soon as they are available. Please see separate note in Epic for full details from today's consult visit including recommendations for ongoing management. Return to primary provider for continued care. If you have questions regarding today's evaluation or if we can be of further service, please contact the [facility]. anomalies may be present but not detected Procedure Note Mica Aguilar MD - 08/08/2023 NT ----- Pat. Name: KYARA MISHRA Study Date: 08/08/2023 11:06am Pat. NO: [id number] Referring MD: RAYA CARSON Site: [facility] Log Check Scaler: [address] RDMS : 2000 Age: 22 ----- INDICATION ----- Monochorionic, Diamniotic Twin gestation. Doing NIPT. METHOD ----- Transabdominal ultrasound examination. View: Sufficient. ----- Twin . Dichorionic-diamniotic. Number of fetuses: 2 DATING ----- DateDetailsGest. age FERNANDO LMP 4Cycle: irregular cycle14 w + 3 d 02/03/2024 Prior assessment 07/18/2023 GA: 10 w+ 3 d13 w + 3 d 02/10/2024 U/S Fetus 1 08/08/2023 basedupon CRL13 w + 2 d 02/11/2024 U/S Fetus 2based upon CRL13 w + 4 d 02/09/2024 Assigned dating Dating performed on 08/08/2023, based onthe prior assessment (on 07/18/2023) 13 w + 3 d104/12/2023 Fetus 1: GENERAL EVALUATION ----- Cardiac activity present. Placenta anterior, thin dividing membrane. Cord vessels normal insertion. Amniotic fluid normal amount. Fetus 2: GENERAL EVALUATION ----- Cardiac activity present. Placenta anterior, thin dividing membrane. Cord vessels normal insertion. Amniotic fluid normal. Fetus 1: BIOMETRY ----- FHR 150 bpm CRL 70.7 mm13w 2d Hadlock NT 2.00 mm Fetus 2: BIOMETRY ----- FHR 155 bpm CRL 75.0 mm13w 4d Hadlock NT 2.20 mm Fetus 1: ANATOMY ----- Face: Nasal bone present Neck: Normal Nuchal Translucency The following structures appear normal: Cranium. Abdominal wall. Stomach. Bladder. Arms. Legs. Fetus 2: ANATOMY ----- Face: Nasal bone present Neck: Normal Nuchal Translucency The following structures appear normal: Cranium. Abdominal wall. Stomach. Bladder. Arms. Legs. MATERNAL STRUCTURES ----- Cervix Visualized Appearance: Appears Closed Right Ovary Not visualized Left Ovary Visualized RECOMMENDATION ----- Thank-you for referring your patient for MFM consult & ultrasoundassessment. We discussed the results of the ultrasound with the patient. Your patient had cell free DNA screening today. The results of this screenwill be forwarded to you as soon as they are available. Please see separate note in Epic for full details from today's consultvisit including recommendations for ongoing management. Return to primary provider for continued care. If you have questions regarding today's evaluation or if we can be offurther service, please contact the [facility]. anomalies may be present but not detected IMPRESSION ----- 1. Monochorionic diamniotic twins at 13w 3d gestational age. 2. There is a single placenta with a thin intertwin membrane consistentwith a monochorionic diamniotic twin . 3. Sonographic biometry agrees with gestational age predicted by assignedEDD for both fetuses. 4. The nuchal translucency measurement is within the normal range in bothfetuses. 5. The nasal bone was visualized in both twins. 6. Visualized anatomy appears normal for early gestational age. Mica Aguilar MD [facility] MF US ORDERABLE S from Last 3 Months Care Teams Skip Hoist Engineer Relationship Specialty Start Date End Date No Ref-Primary, Physician PCP - General 07/22/23 Mica Aguilar MD [address] [facility] [address] [place] [address] Assigned OBGYN Provider 08/31/23
--- OUTSIDE RECORDS SUMMARY | 2023-09-01 22:25 | XMS_ITS | Clinical Summary ---
Author Organization [facility] Address [place], [place] [address] Care Team Providers Care Outside Upholsterer Name Role Phone None Primary Care Provider [...] CDT - 06/24/2023 7:50 PM CDT Emergency [facility] [address] [place] [address] Una Franks NP Abdominal pain during , [...] 06/24/2023 7:36:39 PM (Electronically Signed) Una Franks COMPLAINT EVALUATION SUPERVISOR US * CBC WITH AUTO DIFFERENTIAL (06/24/2023 4:30 PM CDT) WHITE BLOOD COUNT 10.2 4.5 - 11.0 thou/cu mm 06/24/2023 4:39 PM [facility] RED BLOOD COUNT 4.34 4.00 - 5.20 mil/cu mm 06/24/2023 4:39 PM [facility] HEMOGLOBIN 12.7 12.0 - 16.0 g/dL 06/24/2023 4:39 PM [facility] HEMATOCRIT 37.0 33.0 - 51.0 % 06/24/2023 4:39 PM [facility] MCV 85 80 - 100 fL 06/24/2023 4:39 PM [facility] MCH 29.3 26.0 - 34.0 pg 06/24/2023 4:39 PM [facility] MCHC 34.3 32.0 - 36.0 g/dL 06/24/2023 4:39 PM [facility] RDW 12.5 11.5 - 15.5 % 06/24/2023 4:39 PM [facility] PLATELET COUNT 265 140 - 440 thou/cu mm 06/24/2023 4:39 PM [facility] MPV 10.2 6.5 - 11.0 fL 06/24/2023 4:39 PM [facility] % NEUT 66.9 % 06/24/2023 4:39 PM [facility] % LYMPH 23.4 % 06/24/2023 4:39 PM [facility] % MONO 5.6 % 06/24/2023 4:39 PM CDT [facility] % EOS 3.6 % 06/24/2023 4:39 PM CDT [facility] % BASO 0.5 % 06/24/2023 4:39 PM CDT [facility] ABSOLUTE NEUTROPHILS 6.8 1.7 - 7.0 thou/cu mm 06/24/2023 4:39 PM CDT [facility] ABSOLUTE LYMPHOCYTES 2.4 0.9 - 2.9 thou/cu mm 06/24/2023 4:39 PM CDT [facility] ABSOLUTE MONOCYTES 0.6 <0.9 thou/cu mm 06/24/2023 4:39 PM CDT [facility] ABSOLUTE EOSINOPHILS 0.4 <0.5 thou/cu mm 06/24/2023 4:39 PM CDT [facility] ABSOLUTE BASOPHILS 0.1 <0.3 thou/cu mm 06/24/2023 4:39 PM CDT [facility] Blood BLOOD SPECIMEN / Unknown Venipuncture / Unknown 06/24/2023 4:30 PM CDT 06/24/2023 4:35 PM CDT Una Franks NP HEMATOLOGY [facility] [address] [place] [address] * RH(D) TYPE (06/24/2023 4:30 PM CDT) RH(D) TYPE Positive 06/24/2023 4:54 PM CDT [facility] BLOOD BANK Blood BLOOD SPECIMEN / Unknown Venipuncture / Unknown 06/24/2023 4:30 PM CDT 06/24/2023 4:35 PM CDT Una Franks NP BLOOD BANK [facility] BLOOD BANK [address] [place] [address] * HCG BETA QUANT, (06/24/2023 4:30 PM CDT) Pathologist [facility] HCG BETA QUANT,PREGNANC Y 46,241 mIU/mL 06/24/2023 5:28 PM CDT [facility] Blood BLOOD SPECIMEN / Unknown Venipuncture / Unknown 06/24/2023 4:30 PM CDT 06/24/2023 4:[address] [facility] - 06/24/2023 5:28 PM CDT Expected [...] prior to retesting. Una Franks NP CHEMISTRY [facility] [address] [place] [id number] * BASIC METABOLIC PANEL (06/24/2023 4:30 PM CDT) Pathologist [facility] SODIUM 137 136 - 145 mmol/L 06/24/2023 4:56 PM CDT [facility] POTASSIUM 3.9 3.5 - 5.1 mmol/L 06/24/2023 4:56 PM [facility] CHLORIDE 102 98 - 107 mmol/L 06/24/2023 4:56 PM [facility] CO2,TOTAL 24 22 - 29 mmol/L 06/24/2023 4:56 PM [facility] ANION GAP 11 5 - 18 06/24/2023 4:56 PM [facility] GLUCOSE 76 70 - 99 mg/dL 06/24/2023 4:56 PM [facility] CALCIUM 10.0 8.6 - 10.0 mg/dL 06/24/2023 4:56 PM [facility] BUN 8 6 - 20 mg/dL 06/24/2023 4:56 PM [facility] CREATININE 0.66 0.50 - 0.90 mg/dL 06/24/2023 4:56 PM [facility] BUN/CREAT RATIO 12 10 - 20 4:56 PM [facility] eGFR >90 >90 mL/min/1.7 3m2 06/24/2023 4:56 PM [facility] Comment:As of 2021, eG FR is calculated by the CKD-EPI creatinine equation without race adjustment. ??eGFR can be influenced by muscle mass, exercise, and diet. ??The reported eGFR is an estimation only and is only applicable if the renal function is stable. Blood BLOOD SPECIMEN / Unknown Venipuncture / Unknown 06/24/2023 4:30 PM CDT 06/24/2023 4:35 PM CDT Una Franks NP CHEMISTRY [facility] [address] [place] [address] * (ABNORMAL) UA W/ SEDIMENT EXAM REFLEXED PER CRITERIA (06/24/2023 4:01 PM CDT) COLOR Yellow Yellow Color 06/24/2023 4:14 PM T [facility] CLARITY Clear Clear Clarity 06/24/2023 4:14 PM [facility] SPECIFIC GRAVITY,URINE <=1.005(A) 1.010, 1.015, 1.020, 1.025 06/24/2023 4:14 PM [facility] PH,URINE 6.0 6.0, 7.0, 8.0, 5.5, 6.5, 7.5, 8.5 06/24/2023 4:14 PM [facility] UROBILINOGEN, QUALITATIVE Normal Normal EU/dl 06/24/2023 4:14 PM T [facility] PROTEIN, URINE Negative Negative mg/dL 06/24/2023 4:14 PM [facility] GLUCOSE, URINE Negative Negative mg/dL 06/24/2023 4:14 PM [facility] KETONES,URINE Negative Negative mg/dL 06/24/2023 4:14 PM T [facility] BILIRUBIN,URI NE Negative Negative 06/24/2023 4:14 PM [facility] OCCULT BLOOD,URINE Negative Negative 06/24/2023 4:14 PM [facility] NITRITE Negative Negative 06/24/2023 4:14 PM [facility] LEUKOCYTE ESTERASE Negative Negative 06/24/2023 4:14 PM [facility] Urine URINE SPECIMEN / Unknown Non-Blood / Unknown 06/24/2023 4:01 PM CDT 06/24/2023 4:07 PM CDT Una Franks NP URINE Performing Organization Address [facility]/State/[facility] Co de Phone Number [facility] [address] [place] [address] * (ABNORMAL) URINE (06/24/2023 4:01 PM CDT) ,URIN E Positive(P ositive) Negative 06/24/2023 4:14 PM T [facility] Comment:Is Rh typing necessa ry? Urine URINE SPECIMEN / Unknown Non-Blood / Unknown 06/24/2023 4:01 PM CDT 06/24/2023 4:07 PM CDT Una Franks COMPLAINT EVALUATION SUPERVISOR URINE [facility] [address] [place] [address] from Last 3 Months Care Teams Outside Upholsterer Relationship Specialty Start Date End Date None . PCP - General 06/23/23
--- OUTSIDE RECORDS SUMMARY | 2023-09-01 22:25 | XMS_ITS | Encounter Summary ---
Author Organization [facility] Address [address] [facility] [place] [address] Care Team Providers Care Grain Combiner Name Role Phone No Ref-Primary, Physician Primary Care Provider Reason for Visit * Reason Onset Date Comments Results 08/14/2023 Low Risk NIPT Encounter Details Date Type Department Care Team (Late st Contact Info) Description 08/14/2023 Telephone [facility] [address] [place] [address] Nelsy Diaz GC [address] [facility] [place] [address] [place] [address] Results (Low Risk NIPT ) Social History Tobacco Use Types Packs/Day Years Used Date Smoking Tobacco: Never Assessed Adolescent Education Answer Date Record ed Getting School Help Needed Not on file 07/21 Estimated Date of Delivery Comme nts Yes 02/10/2024 Based on Ultraso und Sex and Gender Information Value Date Recorded Sex Assigned at Not on file Gender Identity Not on file Sexual Orientation Not on file documented as of this encounter Plan of Treatment Upcoming Encounters Date Type Department Care Team (Late st Contact Info) Description 09/05/2023 11:30 AM CDT Virtual Visit [facility] Insurance Verification 09/12/2023 2:15 PM CDT Appointment [facility] [address] [place] [phone] Mica Aguilar MD [address] [place] [address] Angelica Wright MD [address] [place] [address] 09/12/2023 2:45 PM CDT Office Visit [facility] [place] [address] [place] [phone] Mica Aguilar MD [address] [place] [address] [place] [address] Angelica Wright MD [address] [address] [place] [address] 09/26/2023 1:30 PM CDT Appointment [facility] [place] [address] [place] [phone] Mica Aguilar MD [address] [place] [address] 09/26/2023 2:45 PM CDT Office Visit [facility] [place] [address] [place] [phone] Mica Aguilar MD [address] [place] [address] 10/10/2023 12:00 PM CDT Appointment [facility] [address] [place] [phone] Mica Aguilar MD [address] [place] [address] 10/10/2023 1:00 PM CDT Appointment [facility] [address] [place] [phone] Mica Aguilar MD [address] [address] 10/10/2023 2:15 PM CDT Appointment [facility] [address] [place] [phone] Mica Aguilar MD [address] [address] 10/10/2023 2:45 PM CDT Office Visit [facility] [address] [place] [address] Mica Aguilar MD [address] [facility] [address] [id number] documented as of this encounter Visit Diagnoses Not on filedocumented in this encounter Care Teams Grain Combiner Relationship Specialty Start Date End Date No Ref-Primary, Physician PCP - General 07/22/23 documented as of this encounter
--- OUTSIDE RECORDS SUMMARY | 2023-09-01 22:25 | XMS_ITS | Encounter Summary ---
Author Organization [place] Address [address] 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 [place] 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 The indication for genetic counseling is desire to discuss options for genetic screening and diagnostics. The patient was accompanied to this visit by her spouse, Ranjit. The session was conducted with a Cypriot ipad supervisor fiber locking ([place] supervisor fiber locking SP10) due to the patient speaking limited Persian. IMPRESSION/ PLAN 1. Kyara has not had genetic screening in this but elected to have screening today. 2. During today's [employer] visit, Kyara had a blood draw for non-invasive testing (also called NIPT, NIPS, or cell-free DNA) through [employer] ([place]). This NIPT screens for trisomy 21, 18, and 13and the patient opted to screen for predicted sex. Results are expected in 1-2 weeks. The patient will be called with results and if they do not answer they requested a detailed message with results on their voicemail, NOT including the predicted sex information. Instead, they would like the sex information communicated to Kyara's mother, Virginia Villegas ([phone]). Kyara wasinformed that results, including sex, will be available in [employer]. 3. Since the patient chose aneuploidy screening via NIPT, quad screen is NOT recommended in the second trimester. If the patient desires screening for open neural tube defects, maternal serum AFP only is recommended, ideally between 16- 18 weeks gestation. 4. Kyara and Ranjit elected to pursue expanded carrier screening for 574 conditions through [employer]. Results are expected within 2-3 weeks, and will be available in [facility]. We will contact the couple to discuss the results. The couple requested that we contact Maxwell with results once both are available. She provided verbal permission for results to be left in her voicemail. Authorization to share protected health information was signed today's visit. 5. Kyara had a nuchal translucency ultrasound today. Please see the ultrasound report for further details. Kyara also had a MFM consultation today. Please see the consult note for more details. 6. Further recommendations include an early second trimester (15-18 weeks gestation) ultrasound grace anatomy level II ultrasound both with MFM around 18-20 weeks. The early second trimester ultrasound has been scheduled for 08/29/2023 and the anatomy level II ultrasound for 09/12/2023.Further recommendations also include a echocardiogram with pediatric cardiology which will bescheduled at a later date. HISTORY /Parity: This is Kyara's first . CURRENT Current Age: [age] year old Age at Delivery: 23 year old FERNANDO: 02/10/2024, by Ultrasound Gestational Age: 13w3d No heavy bleeding, severe cramping, fevers, or exposures of concern were reported at today's visit. This is a monochorionic diamniotic twin gestation. Twin pregnancies are described by the number of placentas (-chorionic) and amniotic sacs (-amniotic). In addition, twin pregnancies are also characterized by the number (mono- or di-) of zygotes (fertilized egg) the developed from. This is a monochorionic diamniotic twin which means the babies share a placentabut have separate amniotic sacs. Due to being monochorionic, the twins are monozygotic, or genetically identical. In rare cases, monozygotic twins can have different genetic conditions if there were p ost-zygotic de latosha changes. Please see the imaging note for a detailed discussion of monochorionic twin risks and recommendations. This was conceived spontaneously. MEDICAL HISTORY Kyara???s reported medical history is not expected to impact management or risks to fetaldevelopment. FAMILY HISTORY A three-generation family history was not obtained today due to our focus on other topics and time constraints. Broadly, the reported family history is unremarkable for multiple miscarriages, stillbirths, defects, intellectual disabilities, autism spectrum disorder, developmental delays, cancer diagnosed under 50, known genetic conditions, and consanguinity. The family history was reported by Chris. RISK ASSESSMENT FOR INHERITED CONDITIONS AND CARRIER SCREENING OPTIONS Expanded carrier screening is available to screen for autosomal recessive conditions and X-linked conditions in a large list of genes. Carrier screening does not test the but gives a risk assessment for the and future pregnancies to have the condition. Expanded carrier screeningis designed to identify carrier status for conditions that are primarily childhood or adolescent onset. Expanded carrier screening does not evaluate for adult-onset conditions such as hereditary cancer syndromes, dementia/Alzheimer's disease, or cardiovascular disease risk factors. Additionally, expanded carrier screening is not comprehensive for all known genetic diseases or inherited conditions. Carrier screening does not test for all genetic and health conditions or risk factors. Autosomal recessive conditions happen when a mutation has been inherited from the egg and sperm andinclude conditions like cystic fibrosis, thalassemia, hearing loss, spinal muscular atrophy, and more. We reviewed that when both biological parents carry a harmful genetic change in a gene associated with autosomal recessive inheritance, each of their pregnancies has a 1 in 4 (25%) chance to be affected by that condition. X-linked conditions happen when a mutation has been inherited from the eggand include conditions like fragile X syndrome.With X-linked conditions, the specific risk generally depends on the chromosomal sex of the fetus, with XY individuals (generally male) being most severely affected. screening was reviewed. About [place] Screening The patient does NOT have a family history of known inherited conditions. This does NOT mean the patient and/or their partner is not a carrier of a condition. Approximately 90% of couples at an increased reproductive risk for an inherited condition have no family history of that condition. The patient has not had carrier screening previously. The patient elected to pursue carrier screening today. The screening will include 574 conditions through [employer]. See below for the more detailed information we discussed. Carrier screening does not test the but gives a risk assessment for the and future pregnancies to have the condition If both partners are carriers of the same condition, there is a 1 in 4 (25%) chance for any pregnancies they have together to have the condition There are different size panels or list of conditions for carrier screening We discussed examples of various conditions that can be detected through carrier screening Some conditions cause health problems for carriers We discussed the Genetic Information Nondiscrimination Act ([place]) and important gaps in the protections it affords Carrier screening does not test for all genetic and health conditions or risk factors There are limitations to current technology and results may be updated at a later date If an individual is a carrier, family members could be as well. The patient is encouraged to share this information with relatives. We reviewed the benefits and limitations of this testing. Screening tests provide a risk assessmentspecific to the for certain chromosome abnormalities, but cannot definitively diagnose or exclude a chromosome abnormality. Follow-up genetic counseling and consideration of diagnostic testing is recommended with any abnormal screening result. Diagnostic tests carry inherent risks- including risk of miscarriage- that require careful consideration. These tests can detect chromosome abnormalities with greater than 99% certainty. Results can be compromised by maternal cell contamination or mosaicism, and are limited by the resolution of cytogenetic G-banding technology. There is no screening nor diagnostic test that can detect all forms of defects or mental disability. RISK ASSESSMENT FOR CHROMOSOME CONDITIONS We explained that the risk for chromosome abnormalities increases with maternal age. We discussed specific features of common chromosome abnormalities, including Down syndrome, trisomy 13, trisomy 18, and sex chromosome trisomies. At age 22 at midtrimester, the risk to have a baby with Down syndrome is 1 in 1136. At age 22 at midtrimester, the risk to have a baby with any chromosome abnormality is 1 in 568. Aneuploidy Screening for Twin Pregnancies Cell-free DNA non-invasive screening (NIPT) is available for twins, but results can be difficult tointerpret in twin pregnancies since the cell-free DNA in maternal circulation derives from the placenta(s). If the result is abnormal, especially for dichorionic twins, it is difficult to determine which twin's placenta contributed to the abnormal result. Less validation data is available [facility] and some insurance plans will not cover this screening in twin pregnancies. Additionally, NIPT for twin pregnancies does not allow for assessment of all sex chromosome differences. NIPT run on a SNP platform ([employer]) can screen for monosomy X if the twins are identified to bemonozygotic. However, the SNP-based NIPT platform has a ~10% failure rate for twins. Analysis can be performed to detect the presence or absence of a Y chromosome. In the case of a dichorionic twin the presence of a Y chromosome would mean that at least one twin is a male. Please see below for a further conversation about NIPT through [employer] versus [employer]. Kyara has not had genetic screening in this but elected to have screening today. GENETIC TESTING OPTIONS FOR CHROMOSOMAL CONDITIONS Genetic testing during a includes screening and diagnostic procedures. Screening tests are non-invasive which means no risk to the and includes ultrasounds and blood work. The benefits and limitations of screening were reviewed. Screening tests provide a risk assessment (chance) specific to the for certain chromosome abnormalities but cannot definitively diagnose or exclude a chromosome abnormality. Follow-up genetic counseling and consideration of diagnostic testing is recommended with any abnormal screening result. Diagnostic testing during a is more certain and can test for more conditions. However, the tests do have a risk of miscarriage that requires careful consideration. These tests can detect chromosome ab normalities with greater than 99% certainty. Results can be compromised by maternal cell contamination or mosaicism and are limited by the resolution of current genetic testing technology. There is no screening or diagnostic test that detects all forms of defects or intellectual disability. We discussed the following screening options: Non-invasive testing (NIPT) We reviewed options for NIPT through [employer] versus [employer] in the context of a twin gestation: NIPT run on a SNP platform (Panorama through [employer]) will determine zygosity. It will screen for trisomy 21, trisomy 18, trisomy 13, and triploidy in all twin pregnancies. For monozygotic and dizygotic twins, it can provide the predicted sexes For monozygotic twins only, it can screen for sex chromosome differences (monosomy X and trisomies)and 22q11.2 deletion syndrome. SNP-based NIPT platform has an estimated 10% failure rate for twins NIPT through MPS platform ([employer] through [employer]) can only screen for trisomy 21, trisomy 18, and trisomy 13 in twin pregnancies. It can also predict the sex for each twin ([employer]). Rev's platform has an estimated 0.1% failure rate for twins (same as the standard [employer] failure rate). Kyara and Ranjit elected [employer]. We discussed the following ultrasound options: Nuchal translucency (NT) ultrasound Ultrasound between [id number] that includes nuchal translucency measurement and nasal bone assessments Nuchal translucency refers to the space at the back of the neck where fluid builds up. All babies at this stage have fluid and there is only concern if there is too much fluid Nasal bone refers to the small bone in the nose. There is concern for conditions like Down syndromeif the bone cannot be seen at all This ultrasound can be done as part of first trimester screening, at the same time as another screen (NIPT), at the same time as a CVS, or if the patients does not want genetic screening. Markers on ultrasound detects about 70% of pregnancies with aneuploidy Abnormalities on NT ultrasound can also increase the risk for a defect, like a heart defect Information about additional ultrasound options not discussed today below for reference: 2/3 ultrasound (Early Second Trimester) Ultrasound between 14-18 weeks gestation Early anatomy ultrasound for major defects Commonly has suboptimal views due to early gestation so not a substitute for the 18-20w ultrasound Recommended for pregnancies with abnormal screening results, those interested in amniocentesis, or other risk factors Comprehensive level II ultrasound ( Anatomy Ultrasound) Ultrasound done between 18-20 weeks gestation Screens for major defects and markers for aneuploidy (like trisomy 21 and trisomy 18) Includes looking at the fetus/baby's growth, heart, organs (stomach, kidneys), placenta, and amniotic fluid Echocardiogram Ultrasound done between 22-24 weeks gestation Screen for heart defects Recommended if there are concerns about the heart or other indications like IVF or maternal diabetes We discussed the following diagnostic options: Amniocentesis Invasive diagnostic procedure done after 15 weeks gestation The procedure collects a small sample of amniotic fluid for the purpose of chromosomal testing and/or other genetic testing Diagnostic result; more than 99% sensitivity for chromosome abnormalities Testing for AFP in the amniotic fluid can test for open neural tube defects It was a pleasure to be involved with Kyara???s wayne. Esqf-iq-flal time of the meeting was 60 minutes. Nelsy Diaz MS, [facility] Maternal Medicine Office: [phone] [employer]: [phone] [facility] documented in this encounter Plan of Treatment Upcoming Encounters Date Type Department Care Team (Late st Contact Info) Description 09/05/2023 11:30 AM CDT Virtual Visit [facility] Insurance Verification 09/12/2023 2:[address] [facility] Maternal Medicine [place] [address] [place] [address] Mica Aguilar MD [address] [place] [address] Angelica Wright MD [address] [place] [address] 09/12/2023 2:45 PM CDT Office Visit [facility] Maternal Medicine [place] [address] [place] [phone] Mica Aguilar MD [address] [place] [address] Angelica Wright MD [address] [place] [address] 09/26/2023 1:[address] [facility] Maternal Medicine [place] [address] [place] [phone] Mica Aguilar MD [address] [place] [address] 09/26/2023 2:45 PM CDT Office Visit [facility] Maternal Medicine [place] [address] [place] [phone] Mica Aguilar MD [address] [place] [address] 10/10/2023 12:00 PM CDT Appointment [facility] [address] [phone] Mica Aguilar MD [address] [place] [phone] 10/10/2023 1:00 PM CDT Appointment [facility] [place] [phone] Mica Aguilar MD [address] [id number] 10/10/2023 2:[address] [facility] [place] [address] [place] [phone] Mica Aguilar MD [address] [place] [phone] 10/10/2023 2:45 PM CDT Office Visit [facility] [place] [address] [place], [place] [phone] Mica Aguilar MD [address] [place] [phone] documented as of this encounter Results * (ABNORMAL) Other Laboratory; [facility]; [facility] Expanded Carrier Screening (Laboratory Miscellaneous Order) (08/08/2023 12:45 PM CDT) See Scanned Result LABORATORY MISCELLANEOUS ORDER-Scanned(A) 08/20/2023 11:47 AM CDT MISCELLANEOUS TESTING Blood STRUCTURE OF RIGHT UPPER LIMB / Unknown Venipuncture / Unknown 08/08/2023 12:45 PM CDT 08/08/2023 12:45 PM CDT Nelsy Diaz GC LAB - BLOOD ORDERABL ES MISCELLANEOUS TESTING * [facility] Non-Invasive Screening???[facility] (08/08/2023 12:45 PM CDT) See Scanned Result [facility] NON-INVASIVE SCREENING PREQUEL-Scann ed 08/14/2023 11:49 AM CDT [facility] Blood STRUCTURE OF RIGHT UPPER LIMB / Unknown Venipuncture / Unknown 08/08/2023 12:45 PM CDT 08/08/2023 12:45 PM CDT Nelsy Diaz GC LAB - BLOOD ORDERABL ES [facility] [address] [phone] documented in this encounter Visit Diagnoses Diagnosis screening encounter- Primary Unspecified screening 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
--- OUTSIDE RECORDS SUMMARY | 2023-09-01 22:25 | XMS_ITS | Encounter Summary ---
Author Organization [place] Address [facility] [place] [address] Care Team Providers Care Supervisor Stone Name Role Phone No Ref-Primary, Physician Primary Care Provider Reason for Referral * Consultation (Routine: Next available opening) - Pending Review Specialty Diagnoses / Procedures Referred By Contac t Referred To Contact Diagnoses related condition, antepartum Tomasa Carson CNM [facility] [address] [place] [address] Rh Maternal Med [address] [place] [phone] Referral ID Status Reason Start Date Expiration Date V isits Requested Visits Authorized [id number] Pending Review 07/22/2023 07/21/2024 1 1 Question Answer Preferred Location: [facility] [place] FERNANDO 02/10/2024 Ultrasound NONE US PROC NONE MFM Issue OTHER (enter details in Comments) - mono-di twins, monitoring + plan for pregnacy MFM MD Consultation (unrelated to Ultrasound findings): Yes Inflammatory Bowel Disease Clinic: Joint MFM and GI Consultation: No Chronic Kidney Disease: Joint MFM and Nephrology Consultation No Genetic Counseling Consultation: No fax [facility] - Tomasa Carson - Comments There is no height or weight on file to calculate BMI. >> Patient may proceed with recommendations for further testing as directed by the Maternal Medicine Specialist >> >> If requesting Echo: MFM will determine appropriate location for exam due to indication. Please be aware that coverage of these services is subject to the terms and limitations of your health insurance plan. Call member services at your health plan with any benefit or coverage questions. Encounter Details Date Type Department Care Team (Latest Contact Info) Description 07/22/2023 Transcribe Orders [facility] Maternal Medicine [place] [address] [facility] [address] [place] [address] [phone] Tomasa Carson CNM [facility] [address] [place] [address] related condition, antepartum (Primary Dx) Social History Tobacco Use Types Packs/Day Years Used Date Smoking Tobacco: Never Assessed Adolescent Education Answer Date Record ed Getting School Help Needed Not on file 07/21 Sex and Gender Information Value Date Recorded Sex Assigned at Not on file Gender Identity Not on file Sexual Orientation Not on file documented as of this encounter Plan of Treatment Upcoming Encounters Date Type Department Care Team (Late st Contact Info) Description 09/05/2023 11:30 AM CDT Virtual Visit [facility] Insurance Verification 09/12/2023 2:15 PM CDT Appointment [facility] Maternal Medicine [place] [address] [facility] [address] [place] [address] [phone] Mica Aguilar MD [address] [place], [place] [address] Angelica Wright MD [address] [place], [place] [address] 09/12/2023 2:45 PM CDT Office Visit [facility] Maternal Medicine [place] [address] [facility] [address] [place] [phone] Mica Aguilar MD [address] [place], [place] [address] Angelica Wright MD [address] [place], [place] [phone] 09/26/2023 1:30 PM CDT Appointment [facility] Maternal Medicine [facility] [place] [address] [place] [phone] Mica Aguilar MD [address] [place] [address] 09/26/2023 2:45 PM CDT Office Visit [facility] Maternal Medicine [facility] [address] [place] [phone] Mica Aguilar MD [address] [address] 10/10/2023 12:00 PM CDT Appointment [facility] Heart Care [address] [place] [address] [phone] Mica Aguilar MD [address] 0737[address] 10/10/2023 1:00 PM CDT Appointment [facility] Heart Care [address] [place] [address] [phone] Mica Aguilar MD [address] 621014 10/10/2023 2:15 PM CDT Appointment [facility] Maternal Medicine [facility] [place] [address] [place] [phone] Mica Aguilar MD [address] [address] 10/10/2023 2:45 PM CDT Office Visit [facility] Maternal Medicine [facility] [place] [address] [place], [place] [address] Mica Aguilar MD [address] [place], [place] [phone] Scheduled Referrals Name Type Priority Associated Diagnoses Orde r Schedule Mat Med Ctr Referral - Referral Routine: Next available opening related condition, antepartum Expected: 07/22/2023 (Approximate), Expires: 01/18/2024 documented as of this encounter Visit Diagnoses Diagnosis related condition, antepartum- Primary documented in this encounter Care Teams Supervisor Stone Relationship Specialty Start Date End Date No Ref-Primary, Physician PCP - General 07/22/23 documented as of this encounter
--- OUTSIDE RECORDS SUMMARY | 2023-09-01 22:25 | XMS_ITS | Encounter Summary ---
Author Organization [place] Address [address] [facility] [place] [address] Care Team Providers Care Equipment Oiler Name Role Phone No Ref-Primary, Physician Primary Care Provider Reason for Referral * Diagnostic Imaging Ultrasound (Routine) - Pending Review Specialty Diagnoses / Procedures Referred By Contac t Referred To Contact Radiology. 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 Procedures MFM Twins US OB Complete 2/3 Tri Mica Aguilar MD [address] [place] [address] Referral ID Status Reason Start Date Expiration Date V isits Requested Visits Authorized [id number] Pending Review 08/08/2023 08/07/2024 1 1 Reason for Visit * Diagnostic Imaging Ultrasound (Routine) - Pending Review Specialty Diagnoses / Procedures Referred By Contac t Referred To Contact Radiology. 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 Procedures MFM Twins US OB Complete 2/3 Tri Mica Aguilar MD [address] [place] [address] Referral ID Status Reason Start Date Expiration Date V isits Requested Visits Authorized [id number] Pending Review 08/08/2023 08/07/2024 1 1 Encounter Details Date Type Department Care Team (Latest Contact Info) Description 08/29/2023 1:19 PM CDT - 08/29/2023 11:59 PM CDT Hospital Encounter [facility] Maternal Medicine [place] [address] [place] [phone] Mica Aguilar MD [address] [place], [place] [phone] Case Berrios MD [address] [place], [place] [phone] 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 Discharge Disposition: Home or Self Care Social History Tobacco Use Types Packs/Day Years [...] Description 09/05/2023 11:30 AM CDT Virtual Visit [facility] Insurance Verification 09/12/2023 2:15 PM CDT Appointment [facility] Maternal Medicine [place] [address] [facility] [address] [place] [phone] Mica Aguilar MD [address] [place], [place] [address] Angelica Wright MD [address] [place], [place] [phone] 09/12/2023 2:45 PM CDT Office Visit [facility] Maternal Medicine [place] [address] [facility] [address] [place] [address] [phone] Mica Aguilar MD [address] [place], [place] [phone] Angelica Wright MD [address] [place] [address] 09/26/2023 1:30 PM CDT Appointment [facility] Maternal Medicine [facility] [address] [place] [phone] Mica Aguilar MD [address] [place] [address] 09/26/2023 2:45 PM CDT Office Visit [facility] Maternal Medicine [facility] [address] [facility] [address] [place] [phone] Mica Aguilar MD [address] [place] [address] 10/10/2023 12:00 PM CDT Appointment [facility] Heart Care [address] [place] [address] [phone] Mica Aguilar MD [address] [place] [address] [phone] 10/10/2023 1:00 PM CDT Appointment [facility] Heart Care [address] [place] [address] [phone] Mica Aguilar MD [address] [place] [address] [id number] 10/10/2023 2:15 PM CDT Appointment [facility] Maternal Medicine [facility] [address] [place] [phone] Mica Aguilar MD [address] [place], [place] [address] 10/10/2023 2:45 PM CDT Office Visit [facility] Maternal Medicine [facility] [address] [place], [place] [address] Mica Aguilar MD [address] [place], [place] [address] documented as of this encounter Procedures Procedure Name Priority Date/Time Associated Diagnosis Comments MFM TWINS US OB COMPLETE 2/3 TRI Routine 08/29/2023 2:47 PM CDT 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 documented in this encounter Results * MFM Twins US OB Complete [...] ? Trim ----- Pat. Name: ROLANDO VILLEG[place] KRISTYN ? Study Date: ??08/29/2023 1:33pm Pat. NO: ??[id number] ?Referring ??MD: RAYA SHAH Site: ? [employer] Cast[employer] Machine Operator: Carmen Zurita RDMS : ??2000 ?Age: ?? [...] ?0 lb 5 ?oz EFW by ?Hadlock ([id number]-[id number]) EFW discordance ?10.2 ?% Head / Face [...] ?0 lb 5 ?oz EFW by ?Hadlock ([id number]-IL-ZB-FL) EFW discordance ?10.2 ?% Head / Face [...] be visualized: Heart / Thorax ?3-vessel view. 3-wdevgf-gcekaog view. Fetus 2: ANATOMY ----- The following structures appear normal: Head / Neck ? Cranium. Head size. Head shape. Lateral ventricles. Choroid plexus. Midline falx. Cavum septi pellucidi. Cerebellum. Cisterna magna. ? Parenchyma. Thalami. ? Neck. Nuchal fold. Face ? Lips. Profile. Nose. Maxilla. Mandible. Orbits. Lens. Heart / Thorax ?4-chamber view. RVOT view. LVOT view. 3-vessel view. 5-zfmxpr-ttjfkid view. Situs. Aortic arch view. Bicaval view. [...] The patient is scheduled to return to [facility] in 2 weeks to assess for TTTS/TAPS [...] Berrios MD - 08/29/2023 ----- Pat. Name: KRISTYN MISHRA Study Date: 08/29/2023 1:33pm Pat. NO: [id number] Referring MD: RAYA SHAH Site: [employer] Operator: Carmen Zurita RDMS : 2000 Age: 22 [...] EFW (lb,oz) 0 lb 5oz EFW by Hadlock([id number]) EFW discordance 10.2% Head / Face / Neck Biometry: CM 4.6mm Nasal bone 4.1mm Fetus 2: BIOMETRY ----- BPD 33.2mm 16w 2dHadlock OFD 42.0mm 15w 0dNicolaides HC 120.9mm 16w 0dHadlock Cerebellum tr 16.2mm 16w 1dNicolaides Nuchal fold 2.2mm AC 101.3mm 16w 1d 40%Hadlock Femur 21.6mm 16w 3dHadlock Humerus 20.8mm 16w 1dJeanty Weight Calculation: EFW 151g 32%Hadlock EFW (lb,oz) 0 lb 5oz EFW by Hadlock(NHC-DM-QM-FL) EFW discordance 10.2% Head / Face / [...] be visualized: Heart / Thorax 3-vessel view. 4-arfvmi-ondexpbrivc. Fetus 2: ANATOMY ----- The following structures appear normal: Head / Neck Cranium. Head size. Head shape.Lateral ventricles. Choroid plexus. Midline falx. Cavum septi pellucidi.Cerebellum. Cisterna magna. Parenchyma. Thalami. Neck. Nuchal fold. Face Lips. Profile. Nose. Maxilla.Mandible. Orbits. Lens. Heart / Thorax 4-chamber view. RVOT view. LVOT view.3-vessel view. 0-kwfsws-tlldoap view. Situs. Aortic arch view. Bicavalview. Ductal [...] The patient is scheduled to return to [facility] in 2 weeks to assess forTTTS/TAPS and [...] no evidence for TTTS/TAPS. Mica Aguilar MD [facility] US ORDERABLE S documented in this encounter Visit Diagnoses Diagnosis 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 documented in this encounter Care Teams Equipment Oiler Relationship Specialty Start Date End Date No Ref-Primary, Physician PCP - General 07/22/23 documented as of this encounter
--- OUTSIDE RECORDS SUMMARY | 2023-09-01 22:25 | XMS_ITS | Encounter Summary ---
Author Organization [place] Address [address] [facility] [place] [address] Care Team Providers Care Health Outreach Worker Name Role Phone No Ref-Primary, Physician Primary Care Provider Encounter Details Date Type Department Care Team (Latest Contact Info) Description 08/08/2023 Travel Social History Tobacco Use Types Packs/Day Years [...] Description 09/05/2023 11:30 AM CDT Virtual Visit [facility] Insurance Verification 09/12/2023 2:15 PM CDT Appointment [facility] Maternal Medicine [facility] [address] [facility] [address] [place] [phone] Mica Aguilar MD [address] [place], [place] [address] Angelica Wright MD [address] [place], [place] [address] 09/12/2023 2:45 PM CDT Office Visit [facility] Maternal Medicine [facility] [address] [facility] [address] [place] [phone] Mica Aguilar MD [address] [place] [address] Angelica Wright MD [address] [place] [address] 09/26/2023 1:30 PM CDT Appointment [facility] Maternal Medicine [facility] [address] [place] [phone] Mica Aguilar MD [address] [place] [address] 09/26/2023 2:45 PM CDT Office Visit [facility] Maternal Medicine [facility] [address] [place] [phone] Mica Aguilar MD [address] [address] 10/10/2023 12:00 PM CDT Appointment [facility] Heart Care [address] [place] [address] [phone] Mica Aguilar MD [address] 153584 10/10/2023 1:00 PM CDT Appointment [facility] Heart Care [address] [place] [address] [phone] Mica Aguilar MD [address] [address] 10/10/2023 2:15 PM CDT Appointment [facility] Maternal Medicine [address] [phone] Mica Aguilar MD [address] [place] [address] 10/10/2023 2:45 PM CDT Office Visit [facility] Maternal Medicine [facility] [address] [place] [address] Mica Aguilar MD [address] [facility] [address] [place] [address] documented as of this encounter Visit Diagnoses Not on filedocumented in this encounter Care Teams Health Outreach Worker Relationship Specialty Start Date End Date No Ref-Primary, Physician PCP - General 07/22/23 documented as of this encounter
--- OUTSIDE RECORDS SUMMARY | 2023-09-01 22:25 | XMS_ITS | Encounter Summary ---
Author Organization [place] Address [address] [facility] [place] [address] Care Team Providers Care Combination Man Name Role Phone No Ref-Primary, Physician Primary Care Provider Reason for Visit * Reason Onset Date Comments Results 08/25/2023 Expanded Carrier Screening with her partner Encounter Details Date Type Department Care Team (Late st Contact Info) Description 08/25/[address] [facility] Maternal Medicine [facility] [address] [place] [phone] Nelsy Diaz GC [address] [facility] [address] [place] [address] Results (Expanded Carrier Screening with her partner) Social History Tobacco Use Types Packs/Day Years [...] 09/05/2023 11:30 AM CDT Virtual Visit [facility] Insurance Verification 09/12/2023 2:[address] [facility] Maternal Medicine [facility] [address] [place] [phone] Mica Aguilar MD [address] [place] [address] Angelica Wright MD [address] [place] [address] 09/12/2023 2:45 PM CDT Office Visit [facility] Maternal Medicine [place] [address] [place] [phone] Mica Aguilar MD [address] [place] [address] Angelica Wright MD [address] [place] [address] 09/26/2023 1:[address] [facility] Maternal Medicine [place] [address] [place] [phone] Mica Aguilar MD [address] [place] [address] 09/26/2023 2:45 PM CDT Office Visit [facility] Maternal Medicine [place] [address] [place] [phone] Mica Aguilar MD [address] [place] [address] 10/10/2023 12:00 PM CDT Appointment [facility] Heart [facility] [place] [phone] Mica Aguilar MD [address] [place] [address] 10/10/2023 1:00 PM CDT Appointment [facility] Care [address] [place] [phone] Mica Aguilar MD [address] [place], [place] [address]E [address] 782374 10/10/2023 2:[address] [facility] Maternal Medicine [facility] [address] [place] [phone] Mica Aguilar MD [address] 824584 10/10/2023 2:45 PM CDT Office Visit [facility] Maternal Medicine [facility] [address] [place], [place] [address] iMca Aguilar MD [address] [place], [place] [address]E S [address] [phone] documented as of this encounter Visit Diagnoses Not on filedocumented in this encounter Care Teams Combination Man Relationship Specialty Start Date End Date No Ref-Primary, Physician PCP - General 07/22/23 documented as of this encounter
--- OUTSIDE RECORDS SUMMARY | 2023-09-01 22:25 | XMS_ITS | Encounter Summary ---
Author Organization [place] Address [address] [facility] [place] [address] Care Team Providers Care Electroneurodiagnostic Technician Name Role Phone No Ref-Primary, Physician Primary Care Provider Reason for Referral * Diagnostic Imaging Ultrasound (Routine) - Pending Review Specialty Diagnoses / Procedures Referred By Contac t Referred To Contact Radiology. 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 Procedures MFM Twins Nuchal Trans w/US Mica Aguilar MD [address] [place] [address] Referral ID Status Reason Start Date Expiration Date V isits Requested Visits Authorized [id number] Pending Review 07/22/2023 07/21/2024 1 1 Reason for Visit * Diagnostic Imaging Ultrasound (Routine) - Pending Review Specialty Diagnoses / Procedures Referred By Contac t Referred To Contact Radiology. 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 Procedures MFM Twins Nuchal Trans w/US Mica Aguilar MD [address] [place] [address] Referral ID Status Reason Start Date Expiration Date V isits Requested Visits Authorized [id number] Pending Review 07/22/2023 07/21/2024 1 1 Encounter Details Date Type Department Care Team (Latest Contact Info) Description 08/08/2023 9:58 AM CDT - 08/08/2023 11:59 PM CDT Hospital Encounter [facility] Maternal Medicine Center [place] [address] [place] [phone] Mica Aguilar MD [address] [place], [place] [address] 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 [...] Description 09/05/2023 11:30 AM CDT [facility] Insurance Verification 09/12/2023 2:15 PM CDT Appointment [facility] Maternal Medicine [place] [address] [facility] [address] [place] [phone] Mica Aguilar MD [address] [place] [address] 577024 Angelica Wright MD [address] [place], [place] [address] 09/12/2023 2:45 PM CDT Office Visit [facility] Maternal Medicine [place] [address] [facility] [address] [place] [address] [phone] Mica Aguilar MD [address] [place], [place] [address] Angelica Wright MD [address] [place] [address] 09/26/2023 1:30 PM CDT Appointment [facility] Maternal Medicine [facility] [address] [place] [phone] Mica Aguilar MD [address] [facility] [address] [place] [address] 09/26/2023 2:45 PM CDT Office Visit [facility] Maternal Medicine [facility] [address] [place] [phone] Mica Aguilar MD [address] 279[address] 10/10/2023 12:00 PM CDT Appointment [facility] Heart Care [address] [place] [address] [phone] Mica Aguilar MD [address] [address] 10/10/2023 1:00 PM CDT Appointment [facility] Heart Care [address] [place] [address] [phone] Mica Aguilar MD [address] 955184 10/10/2023 2:15 PM CDT Appointment [facility] Maternal Medicine [facility] [place] [address] [place] [phone] Mica Aguilar MD [address] 999[address] 10/10/2023 2:45 PM CDT Office Visit [facility] M[facility] Medicine [facility] [place] [address] [place] [address] Mica Aguilar MD [address] [place] [address] documented as of this encounter Procedures Procedure Name Priority Date/Time Associated Diagnosis Comments MFM TWINS NUCHAL TRANSLUCENCY W US Routine 08/08/2023 11:54 AM CDT 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 documented in this encounter Results * MFM Twins Nuchal Trans w/US (08/08/2023 [...] 4:32 PM CDT ?NT ----- Pat. Name: ROLANDO VILLEGAS KRISTYN ? Study Date: ??08/08/2023 11:06am Pat. NO: ??[id number] ?Referring ??MD: RAYA SHAH Site: ??[facility] ? Plater Helper: Christopher Street RDMS : ??2000 ?Age: ?? [...] MD - 08/08/2023 NT ----- Pat. Name: KRISTYN MISHRA Study Date: 08/08/2023 11:06am Pat. NO: [id number] Referring MD: RAYA SHAH Site: [facility] Plater Helper: Christopher Street RDMS : 2000 Age: 22 ----- INDICATION ----- Monochorionic, Diamniotic Twin gestation. Doing NIPT. METHOD ----- Transabdominal ultrasound examination. View: Sufficient. ----- Twin . Dichorionic-diamniotic. Number of fetuses: 2 DATING ----- DateDetailsGest. age FERNANDO LMP 04/29/2023ycle: irregular cycle14 w + 3 d 02/03/2024 [...] ----- Thank-you for referring your patient for M consult & ultrasoundassessment. We discussed the results [...] for early gestational age. Mica Aguilar MD [facility] US ORDERABLE S documented in this encounter Visit Diagnoses Diagnosis 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 documented in this encounter Care Teams Electroneurodiagnostic Technician Relationship Specialty Start Date End Date No Ref-Primary, Physician PCP - General 07/22/23 documented as of this encounter
--- OUTSIDE RECORDS SUMMARY | 2023-09-01 22:25 | XMS_ITS | Referral Summary ---
Author Organization [place] Address [address] [place] [address] Care Team Providers Care Field Nurse Name Role Phone No Ref-Primary, Physician Primary Care Provider Mica Aguilar MD Unavailable [phone] Encounters Date Type Department Care Team Description 08/29/2023 Travel 08/29/2023 2:00 PM CDT Office Visit [facility] [address] [place] [address] Mica Aguilar MD Rauk, Case Seals MD 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 (Primary Dx) 08/29/2023 1:19 PM CDT - 08/29/2023 11:59 PM CDT Hospital Encounter [facility] [address] [place] [phone] Mica Aguilar MD Rauk, Case Seals MD 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 Discharge Disposition: Home or Self Care 08/25/2023 Telephone [facility] [address] [place] [address] Nelsy Diaz GC Results (Expanded Carrier Screening with her partner) 08/14/2023 Telephone [facility] [address] [place] [address] Nelsy Diaz GC Results (Low Risk NIPT ) 08/08/2023 12:30 PM CDT Lab [facility] [address] [place] [phone] Mica Aguilar MD screening encounter; Encounter of female for testing for genetic disease carrier status for procreative management 08/08/2023 Travel 08/08/2023 9:58 AM CDT - 08/08/2023 11:59 PM CDT Hospital Encounter [facility] [address] [facility] [address] [place] [address] Mica Aguilar MD 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 Discharge Disposition: Home or Self Care 08/08/2023 10:15 AM CDT Office Visit [facility] [address] [facility] [address] [place] [phone] Mica Aguilar MD Daykin, Emily C, GC screening encounter (Primary Dx); 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; Encounter of female for testing for genetic disease carrier status for procreative management 08/08/2023 11:45 AM CDT Office Visit [facility] [address] [facility] [address] [place] [address] Mica Aguilar MD 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 (Primary Dx) 08/01/2023 PRE VISIT [facility] [address] [facility] [address] [place] [address] Karie Barrow RN Genetic Counseling ([place]/di twins, screening); Ultrasound (NT); Consult ([place]/di twins) 07/22/2023 Orders Only [facility] [address] [place] [address] Ashley Hassan RN 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 (Primary Dx) 07/22/2023 Transcribe Orders [facility] [place] [address] [facility] [address] [place] [address] Raya Carson CNM related condition, antepartum (Primary Dx) 07/18/2023 Medical Correspondence [facility] [address] [place] [address] Scan, Non-Provider from Last 3 Months [...] PM CDT Appointment [facility] [place] [address] [facility] [address] [place] [address] Mica Aguilar MD [address] [place] [address] Angelica Wright MD [address] [place] [address] 09/12/2023 2:45 PM CDT Office Visit [facility] [place] [address] [facility] [address] [place] [address] Mica Aguilar MD [address] [place], [place] [address] Angelica Wright MD [address] [place] [address] 09/26/2023 1:30 PM CDT Appointment [facility] [address] [place] [phone] Mica Aguilar MD [address] [address] 09/26/2023 2:45 PM CDT Office Visit [facility] [address] [place] [phone] Mica Aguilar MD [address] [address] 10/10/2023 12:00 PM CDT Appointment [facility] [address] [place] [phone] Mica Aguilar MD [address] [address] 10/10/2023 1:00 PM CDT Appointment [facility] [address] [place] [phone] Mica Aguilar MD [address] [address] 10/10/2023 2:15 PM CDT Appointment [facility] [address] [place] [phone] Mica Aguilar MD [address] [place] [address] 10/10/2023 2:45 PM CDT Office Visit [facility] [place] [address] [place] [address] Mica Aguilar MD [address] [place] [address] Procedures Procedure Name Priority Date/Time Associated Diagnosis [...] TTTS/TAPS. Narrative 08/29/2023 3:02 PM CDT ? / 3rd Trim ----- Pat. Name: KYARA MISHRA ? Study Date: ??08/29/2023 1:33pm Pat. NO: ??[id number] ?Referring ??: RAYA CARSON Site: ? Accountant Controller: Carmen Zurita RDMS : ??2000 ?Age: ?? [...] BPD ? 33.5 ?mm ? 16w 3d ?Hadlock OFD ? 42.5 ?mm ? 15w 1d ?Nicolaides [...] ?0 lb 5 ?oz EFW by ?Hadlock ([id number]) EFW discordance ?10.2 ?% Head / Face [...] ?0 lb 5 ?oz EFW by ?Hadlock ([id number]-VR-GN-FL) EFW discordance ?10.2 ?% Head / Face [...] be visualized: Heart / Thorax ?3-vessel view. 5-djrtxn-gusgmpl view. Fetus 2: ANATOMY ----- The following structures appear normal: Head / Neck ? Cranium. Head size. Head shape. Lateral ventricles. Choroid plexus. Midline falx. Cavum septi pellucidi. Cerebellum. Cisterna magna. ? Parenchyma. Thalami. ? Neck. Nuchal fold. Face ? Lips. Profile. Nose. Maxilla. Mandible. Orbits. Lens. Heart / Thorax ?4-chamber view. RVOT view. LVOT view. 3-vessel view. 3-uedgqi-fvmsbxr view. Situs. Aortic arch view. Bicaval view. [...] The patient is scheduled to return to [facility] in 2 weeks to assess for TTTS/TAPS [...] Procedure Note Case Berrios MD - 08/29/2023 / Trim ----- Pat. Name: KYARA MISHRA Study Date: 08/29/2023 1:33pm Pat. NO: [id number] Referring MD: RAYA CARSON Site: Accountant Controller: Carmen Zurita RDMS : 2000 Age: 22 [...] EFW (lb,oz) 0 lb 5oz EFW by Hadlock(TCM-[id number]-KE-FL) EFW discordance 10.2% Head / Face / Neck Biometry: CM 4.6mm Nasal bone 4.1mm Fetus 2: BIOMETRY ----- BPD 33.2mm 16w 2dHadlock OFD 42.0mm 15w 0dNicolaides HC 120.9mm 16w 0dHadlock Cerebellum tr 16.2mm 16w 1dNicolaides Nuchal fold 2.2mm AC 101.3mm 16w 1d 40%Hadlock Femur 21.6mm 16w 3dHadlock Humerus 20.8mm 16w 1dJeanty Weight Calculation: EFW 151g 32%Hadlock EFW (lb,oz) 0 lb 5oz EFW by Hadlock([id number]-KJ-FL) EFW discordance 10.2% Head / Face / [...] be visualized: Heart / Thorax 3-vessel view. 0-sppsgj-dwkmpgefqea. Fetus 2: ANATOMY ----- The following structures appear normal: Head / Neck Cranium. Head size. Head shape.Lateral ventricles. Choroid plexus. Midline falx. Cavum septi pellucidi.Cerebellum. Cisterna magna. Parenchyma. Thalami. Neck. Nuchal fold. Face Lips. Profile. Nose. Maxilla.Mandible. Orbits. Lens. Heart / Thorax 4-chamber view. RVOT view. LVOT view.3-vessel view. 5-pnqmtz-pebigxu view. Situs. Aortic arch view. Bicavalview. Ductal [...] The patient is scheduled to return to [facility] in 2 weeks to assess forTTTS/TAPS and [...] no evidence for TTTS/TAPS. Mica Aguilar MD IMG MFM US ORDERABLE S * [employer] Non-Invasive Screening???Prequel (08/08/2023 12:45 PM CDT) See Scanned Result [employer] NON-INVASIVE SCREENING PREQUEL-Scann ed 08/14/2023 11:49 AM CDT [employer] Blood STRUCTURE OF RIGHT UPPER LIMB / Unknown Venipuncture / Unknown 08/08/2023 12:45 PM CDT 08/08/2023 12:45 PM CDT Nelsy Diaz [employer] LAB - BLOOD ORDERABL ES Performing Organization Address City/[facility]/ZIP Co de Phone Number [employer] [address] [place] [address], [facility] [phone] * (ABNORMAL) Other Laboratory; Jerica; [employer] Expanded Carrier Screening (Laboratory Miscellaneous Order) (08/08/2023 12:45 PM CDT) See Scanned Result LABORATORY MISCELLANEOUS ORDER-Scanned(A) 08/20/2023 11:47 AM CDT MISCELLANEOUS TESTING Blood STRUCTURE OF RIGHT UPPER LIMB / Unknown Venipuncture / Unknown 08/08/2023 12:45 PM CDT 08/08/2023 12:45 PM CDT Nelsy Constantinokin [employer] LAB - BLOOD ORDERABL ES MISCELLANEOUS TESTING * MFM Twins Nuchal Trans [...] ? Study Date: ??08/08/2023 11:06am Pat. NO: ??[id number] ?Referring ??: RAYA CARSON Site: ??[place] ? Accountant Controller: Christopher Street RDMS : ??2000 ?Age: ?? [...] MISHRA Study Date: 08/08/2023 11:06am Pat. NO: [id number] Referring MD: RAYA CARSON Site: [place] Accountant Controller: Christopher Street RDMS : 2000 Age: 22 [...] ----- Thank-you for referring your patient for [facility] consult & ultrasoundassessment. We discussed the results [...] for early gestational age. Mica Aguilar MD IMG [facility] US ORDERABLE S from Last 3 Months Care Teams Field Nurse Relationship Specialty Start Date End Date No Ref-Primary, Physician PCP - General 07/22/23 Mica Aguilar MD [address] [address] Assigned OBGYN Provider 08/31/23
--- OUTSIDE RECORDS SUMMARY | 2023-09-01 22:25 | XMS_ITS | Encounter Summary ---
Author Organization [place] Address [address] [place] [address] Care Team Providers Care Winch Truck Operator Name Role Phone No Ref-Primary, Physician Primary Care Provider Encounter Details Date Type Department Care Team (Late st Contact Info) Description 08/08/2023 12:30 PM CDT Lab [facility] [address] [place] [address] Mica Aguilar MD [address] [place] [address] screening encounter; Encounter of female for testing [...] Description 09/05/2023 11:30 AM CDT Virtual Visit [facility] Insurance Verification 09/12/2023 2:15 PM CDT Appointment [facility] [place] [address] [place] [phone] Mica Aguilar MD [address] [place] [address] Angelica Wright MD [address] [place] [address] 09/12/2023 2:45 PM CDT Office Visit [facility] [place] [address] [place] [phone] Mica Aguilar MD [address] [place] [address] Angelica Wright MD [address] [place] [address] 09/26/2023 1:30 PM CDT Appointment [facility] [place] [address] [place] [phone] Mica Aguilar MD [address] [place], [place] [address] 09/26/2023 2:45 PM CDT Office Visit [facility] [place] [address] [place] [phone] Mica Aguilar MD [address] [place] [phone] 10/10/2023 12:00 PM CDT Appointment [facility] [address] [place] [phone] Mica Aguilar MD [address] [place] [address] 10/10/2023 1:00 PM CDT Appointment [facility] [address] [place] [address] Mica Aguilar MD [address] [phone] 10/10/2023 2:15 PM CDT Appointment [facility] [place] [address] [place] [phone] Mica Aguilar MD [address] [facility] [address] [place], [place] [address] 10/10/2023 2:45 PM CDT Office Visit [facility] [address] [place], [place] [address] Mica Aguilar MD [address] [place], [place] [address] [address] [address] documented as of this encounter Procedures Procedure Name Priority Date/Time Associated Diagnosis Comments [facility] NON-INVASIVE SCREENING PREQUEL Routine 08/08/2023 12:45 PM CDT screening encounter LABORATORY MISCELLANEOUS ORDER Routine 08/08/2023 12:45 PM CDT Encounter of female for testing for genetic disease carrier status for procreative management documented in this encounter Results * (ABNORMAL) Other Laboratory; [...] SCREENING PREQUEL-Scann ed 08/14/2023 11:49 AM CDT [employer] Blood STRUCTURE OF RIGHT UPPER LIMB / Unknown Venipuncture / Unknown 08/08/2023 12:45 PM CDT 08/08/2023 12:45 PM CDT Nelsy Diaz [facility] LAB - BLOOD ORDERABL ES [employer] [address] [phone] documented in this encounter Visit Diagnoses Diagnosis screening encounter Unspecified screening Encounter of female for testing for genetic disease carrier status for procreative management Testing of female for genetic disease carrier status documented in this encounter Care Teams Winch Truck Operator Relationship Specialty Start Date End Date No Ref-Primary, Physician PCP - General 07/22/23 documented as of this encounter
--- OUTSIDE RECORDS SUMMARY | 2023-09-01 22:25 | XMS_ITS | Encounter Summary ---
Author Organization [place] Address [facility] [place] [address] Care Team Providers Care Death Surveys Coder Name Role Phone No Ref-Primary, Physician Primary Care Provider Reason for Referral * Diagnostic Imaging Ultrasound (Routine) - Pending Review Specialty Diagnoses / Procedures Referred By Contac t Referred To Contact Radiology. 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 Procedures MFM Twins US Comprehensive F/U Mica Aguilar MD [address] [place] [address] Referral ID Status Reason Start Date Expiration Date V isits Requested Visits Authorized [id number] Pending Review 08/08/2023 08/07/2024 1 1 * (Routine) - Pending Review Specialty Diagnoses / Procedures Referred By Contac t Referred To Contact 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 Procedures Echo (TTE) Complete Mica Aguilar MD [address] [place] [address] Referral ID Status Reason Start Date Expiration Date V isits Requested Visits Authorized [id number] Pending Review 08/08/2023 08/07/2024 1 1 * (Routine) - Pending Review Specialty Diagnoses / Procedures Referred By Contac t Referred To Contact 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 Procedures Echo (TTE) Complete Mica Aguilar MD [address] [place] [address] Referral ID Status Reason Start Date Expiration Date V isits Requested Visits Authorized [id number] Pending Review 08/08/2023 08/07/2024 1 1 * Diagnostic Imaging Ultrasound (Routine) - Pending Review Specialty Diagnoses / Procedures Referred By Contac t Referred To Contact Radiology. 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 Procedures MFM Twins US Comprehensive Mica Aguilar MD [address] [place] [address] Referral ID Status Reason Start Date Expiration Date V isits Requested Visits Authorized [id number] Pending Review 08/08/2023 08/07/2024 1 1 * Diagnostic Imaging Ultrasound (Routine) - Pending Review Specialty Diagnoses / Procedures Referred By Contac t Referred To Contact Radiology. 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 Procedures MFM Twins US Comprehensive F/U Mica Aguilar MD [address] [place] [address] Referral ID Status Reason Start Date Expiration Date V isits Requested Visits Authorized [id number] Pending Review 08/08/2023 08/07/2024 1 1 * Diagnostic Imaging Ultrasound (Routine) - Pending Review Specialty Diagnoses / Procedures Referred By Contac t Referred To Contact Radiology. 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 Procedures MFM Twins US OB Complete 2/3 Tri Mica Aguilar MD [address] [place] [address] Referral ID Status Reason Start Date Expiration Date V isits Requested Visits Authorized [id number] Pending Review 08/08/2023 08/07/2024 1 1 Reason for Visit * Reason Comments Ultrasound NT-mono/di twins, sc reening Genetic Counseling Twins, screening Consult [place]/di twins * Consultation (Routine: Next available opening) - Pending Review Specialty Diagnoses / Procedures Referred By Tami peoples Referred To Contact 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 Mica Aguilar MD [address] [place] [address] Referral ID Status Reason Start Date Expiration Date V isits Requested Visits Authorized [id number] Pending Review 07/22/2023 07/21/2024 1 1 Encounter Details Date Type Department Care Team (Latest Contact Info) Description 08/08/2023 11:45 AM CDT Office Visit [facility] [place] [address] [facility] [address] [facility] [address] [place] [address] Mica Aguilar MD [address] [place] [address] 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 (Primary Dx) Social History Tobacco Use Types [...] on file documented as of this encounter Last Filed Vital Signs Vital Sign Reading Time Taken Comments Blood Pressure 110/65 08/08/2023 11:46 AM CDT Pulse 84 08/08/2023 11:46 AM CDT Temperature - - Respiratory Rate 20 08/08/2023 11:46 AM CDT Oxygen Saturation 100% 08/08/2023 11:46 AM CDT Inhaled Oxygen Concentration - - Weight - - Height - - Body Mass Index - - documented in this encounter Progress Notes * Mica Aguilar MD - 08/08/2023 11:45 AM CDT Images from the original note were not included. Maternal Medicine August 07, [address] Carson, Thank you for referring your patient Ms. Inocente Villegas for a Maternal- Medicine consultation today. As you know, she is a 22 year old at 13w3d by 10 week ultrasound with monochorionic diamniotic twins. Her is otherwise uncomplicated. She is doing well today and here with her partner Ranjit. Obstetrical History: OB History Para Term AB Living 1 0 0 0 0 0 SAB IAB Ectopic Multiple Live Births 0 0 0 0 0 # Outcome Date GA Lbr Main/2nd Weight Sex Type Anes PTL Lv 1 Current Medical History: No significant past medical history Surgical History: No significant past surgical history Family History: Please see genetic counseling note for detailed 3-generation family history. She specifically denies a family history of motor/intellectual impairment, stillbirth, genetic or chromosome abnormalities or congenital anomalies. BP 110/65 (BP Location: Left arm, Patient Position: Sitting, Cuff Size: Adult Regular) Pulse 84 Resp 20 LMP 04/29/2023 (Approximate) SpO2 100% Gen: NAD CV: Regular rate Pulm: Breathing comfortably Abd: Soft, nontender, gravid Ext: WWP Assessment & Recommendations: 22 year old at 13w3d by 10 week ultrasound with monochorionic diamniotic twins. We discussed today the implications of twin pregnancies and specifically monochorionic diamniotic twin pregnancies in detail. We reviewed that compared to ríos pregnancies, twin pregnancies haveincreased maternal and risks. With regards to maternal risks there is increased risk of hyperemesis, antepartum anemia, hypertensive disorders of , gestational diabetes, delivery, and hemorrhage. With regards to risks, there are increased risks of miscarriage, growth abnormalities, delivery (both iatrogenic and spontaneous) and subsequent sequale of prematurity, as well as increased rates of stillbirth/ . We reviewed that despite the increased risk of delivery there are no interventions available that have been shown to prevent or improve outcomes in twin pregnancies. We also reviewed the risks specific to monochorionic twins. We discussed that due to their unique placental connections they are at increased risk for unequal placental sharing, which can result in Ewvr-fu-Vrnt transfusion Syndrome (TTTS), Twin Anemia-Polycythemia Sequence (TAPS), and selective intrauterine growth restriction. TTTS occurs in 10-15% of cases, and is marked by polyhydramnios in onetwin and oligohydramnios in the other twin. Several stages exist, but cases range from mild diseaseto severe disease involving of one or both twins. We reviewed that TTTS is often unpredictable in onset and severity, although most cases occur prior to 26 weeks. Briefly, we discussed that treatment of worsening TTTS is laser therapy in the second trimester and delivery in the third trimester. TAPS is a chronic form of TTTS, and is seen in up to 6% of mono-di twins without any other evidence of TTTS. We also reviewed the increased risk of selective growth restriction. Finally, we discussed that in monochorionic twin pregnancies if one twin were to demise in utero there is a risk to thesurviving co-twin of (15-25%) or disability (20-30% severe cerebral injury). Urgent delivery in this setting is not indicated as it does not improve the co-twin's outcome and may unnecessarily expose the survivor to complications of prematurity. Expectant management is favored instead. In the setting of these risks, we recommend starting a baby aspirin at 12 weeks due to the increased risk of hypertensive disorders of . Additionally, we recommend ultrasounds every 2 weeks starting at 16 weeks to screen for development of TTTS/TAPS and to follow growth. Additionally, we recommend an early anatomy ultrasound at 16 weeks as well as a specialized anatomy ultrasound at 20 weeks to screen for congenital anomalies. The rate of congenital cardiac malformations in uncomplicated mono-di twins has been as high as 5% in some studies. Thus, echocardiograms are also recommended these twins at 22-24 weeks gestation for screening with our pediatric cardiology colleagues. surveillance starting at 32 weeks with delivery at by 37 weeks in the absence of other morbidity is recommended. Briefly, we discussed the mode of delivery for twins, and reviewed that vaginal delivery of twins is safe under favorable circumstances. Plan: - Genetic counseling, planning cell free DNA and carrier screening today - Baseline preeclampsia labs (if not already done) - Low dose aspirin (81 mg) daily for prevention of hypertensive disorders of , already taking this - Referral to a nuclear medicine specialist: Goal diet for twin pregnancies is 3500 calories/day (20% of calories from protein, 40% from carbohydrates, and 40%). Vitamin supplementation for twin pregnancies: 1mg folate, 1000 international unit(s) vitamin D, 2500mg calcium - TTTS/TAPS screening every 2 weeks starting at 16 weeks with our office - Early anatomic survey at 16 weeks and full comprehensive anatomy US at 20 weeks - Echos between 22-24 weeks pediatric cardiology - Serial growth ultrasounds - Weekly testing at 32 weeks - Delivery by 37 weeks At the end of our discussion, Ms. Inocente Villegas indicated that her questions were answered and sheseemed satisfied with our discussion. Thank you for the opportunity to participate in your patient???s care. If I can be of any further assistance, please do not hesitate to contact me. Sincerely, Mica Aguilar MD Heat Treat Operator, WELDING EQUIPMENT SALES REPRESENTATIVE Maternal- Medicine I spent a total of 45 minutes during today's office visit with Ms. Brower. I also spent time reviewing the patient's medical record and documenting in her chart. Over 50% of this time was spent counseling the patient and/or coordinating care. Please see her note for specific details; I have made the necessary edits/additions. The patient was also seen for an ultrasound in the Maternal- Medicine Center today. For a detailed report of the ultrasound examination, please see the ultrasound report which can be found underthe imaging tab. documented in this encounter Nursing Notes * Eboni Spencer RN - 08/08/2023 11:45 AM CDT Kristyn was seen in MFM Clinic today for mono/di twin . Dr. Aguilar into see patient. Please see MFM consult note for recommendations. Patient was discharged ambulatory and stable. kettle skimmer used for [facility] visit via IPAD, ID#[id number]. documented in this encounter Plan of Treatment Upcoming Encounters Date Type Department Care Team (Late st Contact Info) Description 09/05/2023 11:30 AM CDT Virtual Visit [facility] Insurance Verification 09/12/2023 2:15 PM CDT Appointment [facility] [place] [address] [place] [phone] Mica Aguilar MD [address] [place] [address] Angelica Wright MD [address] [place] [address] 09/12/2023 2:45 PM CDT Office Visit [facility] [place] [address] [place] [phone] Mica Aguilar MD [address] [place] [address] Angelica Wright MD [address] [place] [address] 09/26/2023 1:30 PM CDT Appointment [facility] [place] [address] [place] [phone] Mica Aguilar MD [address] [place] [phone] 09/26/2023 2:45 PM CDT Office Visit [facility] [place] [address] [place] [phone] Mica Aguilar MD [address] [place] [phone] 10/10/2023 12:00 PM CDT Appointment [facility] [place] [phone] Mica Aguilar MD [address] [place] [address] 10/10/2023 1:00 PM CDT Appointment [facility] [address] [place] [phone] Mica Aguilar MD [address] [place] [address] 10/10/2023 2:15 PM CDT Appointment [facility] [place] [address] [place] [phone] Mica Aguilar MD [address] [place] [phone] 10/10/2023 2:45 PM CDT Office Visit [facility] [place] [address] [place] [address] Mica Aguilar MD [address] [place] [phone] Scheduled Orders Name Type Priority Associated Diagnoses Order Schedule MFM Twins US Comprehensive F/U Imaging Routine 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 Expected: 09/12/2023 (Approximate), Expires: 06/07/2024 MFM Twins US Comprehensive Imaging Routine 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 Expected: 09/26/2023 (Approximate), Expires: 06/07/2024 Echo (TTE) Complete Echocardiography Routine 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 Expected: 10/10/2023 (Approximate), Expires: 08/07/2024 Echo (TTE) Complete Echocardiography Routine 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 Expected: 10/10/2023, Expires: 08/07/2024 MFM Twins US Comprehensive F/U Imaging Routine 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 Expected: 10/10/2023 (Approximate), Expires: 06/07/2024 documented as of this encounter Results * MFM Twins US [...] for TTTS/TAPS. Narrative 08/29/2023 3:02 PM CDT ?2nd / 3rd Trim ----- Pat. Name: KRISTYN MISHRA ? Study Date: ??08/29/2023 1:33pm Pat. NO: ??[id number] ?Referring ??MD: RAYA CARSON Site: ? City Director: Carmen Zurita [facility] : ??2000 ?Age: ?? 22 ----- INDICATION [...] ?0 lb 5 ?oz EFW by ?Hadlock ([id number]-[id number]-MG-FL) EFW discordance ?10.2 ?% Head / Face [...] ?0 lb 5 ?oz EFW by ?Hadlock ([id number]-[id number]-FL) EFW discordance ?10.2 ?% Head / Face [...] be visualized: Heart / Thorax ?3-vessel view. 7-lmcauw-nfjchtu view. Fetus 2: ANATOMY ----- The following structures appear normal: Head / Neck ? Cranium. Head size. Head shape. Lateral ventricles. Choroid plexus. Midline falx. Cavum septi pellucidi. Cerebellum. Cisterna magna. ? Parenchyma. Thalami. ? Neck. Nuchal fold. Face ? Lips. Profile. Nose. Maxilla. Mandible. Orbits. Lens. Heart / Thorax ?4-chamber view. RVOT view. LVOT view. 3-vessel view. 4-brovct-oqedcdl view. Situs. Aortic arch view. Bicaval view. [...] The patient is scheduled to return to [facility] in 2 weeks to assess for [...] - 08/29/2023 / Trim ----- Pat. Name: KRISTYN MISHRA Study Date: 08/29/2023 1:33pm Pat. NO: [id number] Referring MD: RAYA CARSON Site: City Director: Carmen Zurita RDMS : 2000 Age: 22 [...] EFW (lb,oz) 0 lb 5oz EFW by Hadlock(EFY-DP-WD-FL) EFW discordance 10.2% Head / Face / Neck Biometry: CM 4.6mm Nasal bone 4.1mm Fetus 2: BIOMETRY ----- BPD 33.2mm 16w 2dHadlock OFD 42.0mm 15w 0dNicolaides HC 120.9mm 16w 0dHadlock Cerebellum tr 16.2mm 16w 1dNicolaides Nuchal fold 2.2mm AC 101.3mm 16w 1d 40%Hadlock Femur 21.6mm 16w 3dHadlock Humerus 20.8mm 16w 1dJeanty Weight Calculation: EFW 151g 32%Hadlock EFW (lb,oz) 0 lb 5oz EFW by Hadlock(QZW-EN-NS-FL) EFW discordance 10.2% Head / Face / [...] be visualized: Heart / Thorax 3-vessel view. 6-cuikwt-gqbchuhpmwo. Fetus 2: ANATOMY ----- The following structures appear normal: Head / Neck Cranium. Head size. Head shape.Lateral ventricles. Choroid plexus. Midline falx. Cavum septi pellucidi.Cerebellum. Cisterna magna. Parenchyma. Thalami. Neck. Nuchal fold. Face Lips. Profile. Nose. Maxilla.Mandible. Orbits. Lens. Heart / Thorax 4-chamber view. RVOT view. LVOT view.3-vessel view. 6-lteznu-iqsjcgm view. Situs. Aortic arch view. Bicavalview. Ductal [...] The patient is scheduled to return to [facility] in 2 weeks to assess forTTTS/TAPS [...] no evidence for TTTS/TAPS. Mica Aguilar MD [facility] ORDERABLE S documented in this encounter Visit Diagnoses Diagnosis 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- Primary 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 documented in this encounter Care Teams Death Surveys Coder Relationship Specialty Start Date End Date No Ref-Primary, Physician PCP - General 07/22/23 documented as of this encounter
--- OUTSIDE RECORDS SUMMARY | 2023-09-01 22:25 | XMS_ITS | Encounter Summary ---
Author Organization [place] Address [address] [place] [id number] Care Team Providers Care Can Washer Name Role Phone No Ref-Primary, Physician Primary Care Provider Reason for Referral * Consultation (Routine: Next available opening) - Pending Review Specialty Diagnoses / Procedures Referred By Contac t Referred To Contact 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 Mica Aguilar MD [address] [facility] [address] [address] Referral ID Status Reason Start Date Expiration Date V isits Requested Visits Authorized [id number] Pending Review 07/22/2023 07/21/2024 1 1 Question Answer MFM Consult Yes Comments Radiologic * Consultation (Routine: Next available opening) - Pending Review Specialty Diagnoses / Procedures Referred By Contac t Referred To Contact 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 Mica Aguilar MD [address] [place] [address] Referral ID Status Reason Start Date Expiration Date V isits Requested Visits Authorized [id number] Pending Review 07/22/2023 07/21/2024 1 1 * Diagnostic Imaging Ultrasound (Routine) - Pending Review Specialty Diagnoses / Procedures Referred By Contac t Referred To Contact Radiology. 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 Procedures MFM Twins Nuchal Trans w/US Mica Aguilar MD [address] [place] [address] Referral ID Status Reason Start Date Expiration Date V isits Requested Visits Authorized [id number] Pending Review 07/22/2023 07/21/2024 1 1 Encounter Details Date Type Department Care Team (Late st Contact Info) Description 07/22/2023 Orders Only [facility] Maternal Medicine [facility] [address] [place] [address] Ashley Hassan RN Monochorionic diamniotic twin gestation [...] Description 09/05/2023 11:30 AM CDT Virtual Visit [facility] Insurance Verification 09/12/2023 2:15 PM CDT Appointment [facility] Maternal Medicine [facility] [address] [place] [phone] Mica Aguilar MD [address] [place] [address] Angelica Wright MD [address] [place] [address] 09/12/2023 2:45 PM CDT Office Visit [facility] Maternal Medicine [facility] [address] [place] [phone] Mica Aguilar MD [address] [place] [address] Angelica Wright MD [address] [place] [address] 09/26/2023 1:30 PM CDT Appointment [facility] Maternal Medicine [facility] [address] [place] [phone] Mica Aguilar MD [address] [place] [address] 09/26/2023 2:45 PM CDT Office Visit [facility] Maternal Medicine [facility] [address] [place] [phone] Mica Aguilar MD [address] [place] [address] 10/10/2023 12:00 PM CDT Appointment [facility] [address] [place] [phone] Mica Aguilar MD [address] [address] 10/10/2023 1:00 PM CDT Appointment [facility] [address] [place] [phone] Mica Aguilar MD [address] [place], [place] [phone] 10/10/2023 2:15 PM CDT Appointment [facility] [place] [address] [place] [phone] Mica Aguilar MD [address] [place] [phone] 10/10/2023 2:45 PM CDT Office Visit [facility] [address] [place], [place] [address] Mica Aguilar MD [address] [facility] [address] [place], [place] [address] Scheduled Referrals Name Type Priority Associated Diagnoses Orde r Schedule [facility] Genetic Counseling Referral Routine: Next available opening 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 Expected: 07/22/2023 (Approximate), Expires: 07/21/2024 [facility] Office Visit Referral Routine: Next available opening 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 Expected: 07/22/2023 (Approximate), Expires: 07/21/2024 documented as of this encounter Results * [facility] Twins Nuchal Trans w/US (08/08/2023 11:54 AM [...] 4:32 PM CDT ?NT ----- Pat. Name: KRISTYN MISHRA ? Study Date: ??08/08/2023 11:06am Pat. NO: ??[id number] ?Referring ??MD: RAYA SHAH Site: ??[facility] ? Rent And Housing Investigator: [address] RDMS : ??2000 ?Age: ?? [...] MISHRA Study Date: 08/08/2023 11:06am Pat. NO: [id number] Referring MD: RAYA SHAH Site: [facility] Rent And Housing Investigator: [address] RDMS : 2000 Age: 22 [...] ----- Thank-you for referring your patient for [facility] consult & ultrasoundassessment. We discussed the results [...] for early gestational age. Mica Aguilar MD [facility] ORDERABLE S documented in this encounter Visit Diagnoses Diagnosis 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- Primary 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 documented in this encounter Care Teams Can Washer Relationship Specialty Start Date End Date No Ref-Primary, Physician PCP - General 07/22/23 documented as of this encounter
--- OUTSIDE RECORDS SUMMARY | 2023-09-01 22:25 | XMS_ITS | Encounter Summary ---
Author Organization [place] Address [address] [facility] [place] [address] Care Team Providers Care Graduate Advisor Name Role Phone No Ref-Primary, Physician Primary Care Provider Reason for Visit * Reason Comments Ultrasound 2/3 complete-mono/di twins Encounter Details Date Type Department Care Team (Latest Contact Info) Description 08/29/2023 2:00 PM CDT Office Visit [facility] Maternal Medicine [place] [address] [facility] [address] [place] [address] Mica Aguilar MD [address] [place] [address] Case Berrios MD [address] [place] [address] 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 (Primary Dx) Social History Tobacco Use [...] as of this encounter Progress Notes * Case Berrios MD - 08/29/2023 2:00 PM CDT Please see Imaging tab under Chart Review for details of today's US at the [facility]. Case Berrios MD Maternal- Medicine documented in this encounter Plan of Treatment Upcoming Encounters Date Type Department Care Team (Late st Contact Info) Description 09/05/2023 11:30 AM CDT Virtual Visit [facility] Insurance Verification 09/12/2023 2:15 PM CDT Appointment [facility] Maternal Medicine [place] [address] [place] [phone] Mica Aguilar MD [address] [place], [place] [phone] Angelica Wright MD [address] [place], [place] [address] 09/12/2023 2:45 PM CDT Office Visit [facility] Medicine [place] [address] [place] [phone] Mica Aguilar MD [address] [place], [place] [phone] Angelica Wright MD [address] [place], [place] [phone] 09/26/2023 1:30 PM CDT Appointment [facility] Maternal Medicine [place] [address] [place] [phone] Mica Aguilar MD [address] [place], [place] [address] 09/26/2023 2:45 PM CDT Office Visit [facility] Maternal Medicine [place] [address] [place] [phone] Mica Aguilar MD [address] [place], [place] [address]404 10/10/2023 12:00 PM CDT Appointment [facility] Heart Care [address] [place] [phone] Mica Aguilar MD [address] [place] [address] 10/10/2023 1:00 PM CDT Appointment [facility] Heart Care [facility] [place] [phone] Mica Aguilar MD [address] [address] 10/10/2023 2:15 PM CDT Appointment [facility] Maternal Medicine [place] [address] [place] [phone] Mica Aguilar MD [address] 748924 10/10/2023 2:45 PM CDT Office Visit [facility] Maternal Medicine [facility] [place] [address] [place] [address] Mica Aguilar MD [address] [place] [address] documented as of this encounter Visit Diagnoses Diagnosis 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- Primary documented in this encounter Care Teams Graduate Advisor Relationship Specialty Start Date End Date No Ref-Primary, Physician PCP - General 07/22/23 documented as of this encounter
--- OUTSIDE RECORDS SUMMARY | 2023-09-01 22:25 | XMS_ITS | Encounter Summary ---
Author Organization [place] Address [address] [facility] [place] [address] Care Team Providers Care Retail Attendant Name Role Phone No Ref-Primary, Physician Primary Care Provider Encounter Details Date Type Department Care Team (Late st Contact Info) Description 07/18/2023 Medical Correspondence [facility] [address] [place] [address] Scan, Non-Provider Social History Tobacco Use Types Packs/Day Years [...] Encounters Date Type Department Care Team (Late Contact Info) Description 09/05/2023 11:30 AM CDT Virtual Visit [facility] Insurance Verification 09/12/2023 2:15 PM CDT Appointment [facility] Maternal Medicine [facility] [address] [facility] [address] [place] [phone] Mica Aguilar MD [address] [place], [place] [address] Angelica Wright MD [address] [place], [place] [address] 09/12/2023 2:45 PM CDT Office Visit [facility] Maternal Medicine [place] [address] [place] [address] Mica Aguilar MD [address] [place] [address] Angelica Wright MD [address] [place] [address] 09/26/2023 1:30 PM CDT Appointment [facility] Maternal Medicine [place] [address] [place] [phone] Mica Aguilar MD [address] [place] [address] 09/26/2023 2:45 PM CDT Office Visit [facility] Maternal Medicine [place] [address] [place] [phone] Mica Aguilar MD [address] [place] [address] [phone] 10/10/2023 12:[address] [facility] Heart Care [address] [place] [address] [phone] Mica Aguilar MD [address] [place] [address] 10/10/2023 1:[address] [facility] Heart Care [address] [place] [address] [phone] Mica Aguilar MD [address] [place] [address] 10/10/2023 2:15 PM CDT Appointment [facility] Maternal Medicine [place] [address] [place] [address] Mica Aguilar MD [address] [facility] [address] [place], [place] [address]28[address] 10/10/2023 2:45 PM CDT Office Visit [facility] Maternal Medicine [facility] [address] [place] [address] Mica Aguilar MD [address] [facility] [address] [place], [place] 122314 documented as of this encounter Visit Diagnoses Not on filedocumented in this encounter Care Teams Retail Attendant Relationship Specialty Start Date End Date No Ref-Primary, Physician PCP - General 07/22/23 documented as of this encounter
--- OUTSIDE RECORDS SUMMARY | 2023-09-01 22:25 | XMS_ITS | Encounter Summary ---
Author Organization [place] Address [address] [facility] [place] [address] Care Team Providers Care Oyster Worker Name Role Phone No Ref-Primary, Physician Primary Care Provider Encounter Details Date Type Department Care Team (Latest Contact Info) Description 08/29/2023 Travel Social History Tobacco Use Types Packs/Day [...] CDT Appointment [facility] Maternal Medicine [facility] [address] [facility] [address] [place] [address] Mica Aguilar MD [address] [place], [place] 67[address] Angelica Wright MD [address] [place], [place] [address] 09/12/2023 2:45 PM CDT Office Visit [facility] Maternal Medicine [facility] [address] [facility] [address] [place] [address] Mica Aguilar MD [address] [place] [address] Angelica Wright MD [address] [place] [address] 09/26/2023 1:30 PM CDT Appointment [facility] Maternal Medicine [facility] [address] [place] [phone] Mica Aguilar MD [address] [place] [address] 09/26/2023 2:45 PM CDT Office Visit [facility] Maternal Medicine [facility] [address] [place] [phone] Mica Aguilar MD [address] [address] 10/10/2023 12:00 PM CDT Appointment [facility] Heart Care [address] [place] [address] [phone] Mica Aguilar MD [address] 937614 10/10/2023 1:00 PM CDT Appointment [facility] Heart Care [address] [place] [address] [phone] Mica Aguilar MD [address] [address] 10/10/2023 2:15 PM CDT Appointment [facility] Maternal Medicine [address] [phone] Mica Aguilar MD [address] [place] [address] 10/10/2023 2:45 PM CDT Office Visit [facility] Maternal Medicine [facility] [address] [place] [address] Mica Aguilar MD [address] [facility] [address] [place] [address] documented as of this encounter Visit Diagnoses Not on filedocumented in this encounter Care Teams Oyster Worker Relationship Specialty Start Date End Date No Ref-Primary, Physician PCP - General 07/22/23 documented as of this encounter
--- OUTSIDE RECORDS SUMMARY | 2023-09-01 22:25 | XMS_ITS | Encounter Summary ---
Author Organization [place] Address [address] [facility] [place] [address] Care Team Providers Care Oncology Rep Name Role Phone No Ref-Primary, Physician Primary Care Provider Reason for Visit * Reason Comments Genetic Counseling Hawkins/di twins, scree yohana Ultrasound NT Consult Hawkins/di twins Encounter Details Date Type Department Care Team (Late st Contact Info) Description 08/01/2023 PRE VISIT [facility] Maternal Medicine [facility] [address] [place] [address] Karie Barrow RN Genetic Counseling (Hawkins/di twins, screening); Ultrasound (NT); Consult (Hawkins/di twins) Social History Tobacco Use Types Packs/Day Years [...] PM CDT Appointment [facility] Maternal Medicine [facility] [address] [place] [address] Mica Aguilar MD [address] [place], [place] [address] Angelica Wright MD [address] [place] [address] 09/12/2023 2:45 PM CDT Office Visit [facility] Maternal Medicine Center [place] [address] [place] [phone] Mica Aguilar MD [address] [place] [address] Angelica Wright MD [address] [place] [address] 09/26/2023 1:30 PM CDT Appointment [facility] Maternal Medicine [place] [address] [place] [address] [phone] Mica Aguilar MD [address] [place] [address] 09/26/2023 2:45 PM CDT Office Visit [facility] Maternal Medicine [place] [address] [place] [phone] Mica Aguilar MD [address] [place] [address] 10/10/2023 12:00 PM CDT Appointment [facility] Heart Care [address] [place] [phone] Mica Aguilar MD [address] [place] [address] 10/10/2023 1:00 PM CDT Appointment [facility] Heart Care [address] [place] [phone] Mica Aguilar MD [address] [place], [place] [address] [address] [address] 10/10/2023 2:15 PM CDT Appointment [facility] Maternal Medicine [facility] [address] [facility] [place] [phone] Mica Aguilar MD [address] [place], [place] [address] [address] [address] 10/10/2023 2:45 PM CDT Office Visit [facility] Maternal Medicine [facility] [address] [place] [address] Mica Aguilar MD [address] [place] [address]39[address] documented as of this encounter Visit Diagnoses Not on filedocumented in this encounter Care Teams Oncology Rep Relationship Specialty Start Date End Date No Ref-Primary, Physician PCP - General 07/22/23 documented as of this encounter
== END 2023-08-15 14:54 | disposition home or self-care (01) ==
LOC: NFLDREF 09-01 22:23
PROVIDERS: Visit Provider Obstetrics & Gynecology
DX: O30.031 Twin pregnancy, monochorionic/diamniotic, first trimester (principal); Z3A.14 14 weeks gestation of pregnancy
CPT/HCPCS: 82565; 82570; 84156; 84450; 84460

== ENCOUNTER 2023-08-21 09:57 | Outpatient (CLI) | payer OTHER, SELFPAY ==
--- OUTSIDE RECORDS SUMMARY | 2023-09-03 11:19 | XMS_ITS | Encounter Summary ---
Author Organization [place] Address [address] [facility] [place] [address] Care Team Providers Care Foreign Broadcast Specialist Name Role Phone No Ref-Primary, Physician Primary [...] 09/05/2023 11:30 AM CDT Virtual Visit [facility] Insurance Verification 09/12/2023 2:15 PM CDT Appointment [facility] Maternal Medicine [facility] [address] [facility] [address] [place] [address] Mica Aguilar MD [address] [place], [place] [address] Angelica Wright MD [address] [place], [place] [address] 09/12/2023 2:45 PM CDT Office Visit [facility] Maternal Medicine [facility] [address] [facility] [address] [place] [address] Mica Aguilar MD [address] [place] [address] Angelica Wright MD [address] [place] [address] 09/26/2023 1:30 PM CDT Appointment [facility] Maternal Medicine [facility] [address] [place] [phone] Mica Aguilar MD [address] [place] [address] 09/26/2023 2:45 PM CDT Office Visit [facility] Maternal Medicine [facility] [address] [place] [address] Mica Aguilar MD [address] [address] 10/10/2023 12:00 PM CDT Appointment [facility] Heart Care [address] [place] [address] [phone] Mica Aguilar MD [address] 511[address] 10/10/2023 1:00 PM CDT Appointment [facility] Heart Care [address] [place] [address] [phone] Mica Aguilar MD [address] [address] 10/10/2023 2:15 PM CDT Appointment [facility] Maternal Medicine [address] [phone] Mica Aguilar MD [address] [place] [address] 10/10/2023 2:45 PM CDT Office Visit [facility] Maternal Medicine [facility] [address] [place] [address] Mica Aguilar MD [address] [facility] [address] [place] [address] documented as of this encounter Visit Diagnoses Not on filedocumented in this encounter Care Teams Foreign Broadcast Specialist Relationship Specialty Start Date End Date No Ref-Primary, Physician PCP - General 07/22/23 documented as of this encounter
--- OUTSIDE RECORDS SUMMARY | 2023-09-03 11:19 | XMS_ITS | Clinical Summary ---
Author Organization [place] Address [address] [place] [address] Care Team Providers Care Carousel Operator Name Role Phone No Ref-Primary, Physician Primary Care Provider Mica Aguilar MD Unavailable [phone] Encounters Date Type Department Care Team Description 08/29/2023 2:00 PM CDT Office Visit [facility] Maternal Medicine [facility] [address] [place] [address] Mica Aguilar MD Rauk, Case Seals MD 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 (Primary Dx) 08/29/2023 1:19 PM CDT - 08/29/2023 11:59 PM CDT Hospital Encounter [facility] Maternal Medicine [facility] [address] [place] [address] Mica Aguilar MD Rauk, Case Seals MD 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 Discharge Disposition: Home or Self Care 08/29/2023 Travel 08/25/2023 Telephone [facility] Maternal Medicine [facility] [address] [place] [address] Nelsy Diaz GC Results (Expanded Carrier Screening with her partner) 08/14/2023 Telephone [facility] Maternal Medicine [facility] [address] [place] [address] Nelsy Diaz GC Results (Low Risk NIPT ) 08/08/2023 12:[address] [facility] [address] [place] [address] Mica Aguilar MD screening encounter; Encounter of female for testing for genetic disease carrier status for procreative management 08/08/2023 11:45 AM CDT Office Visit [facility] Medicine [facility] [address] [facility] [address] [place] [address] Mica Aguilar MD 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 (Primary Dx) 08/08/2023 10:15 AM CDT Office Visit [facility] [place] [address] [facility] [address] [place] [phone] Mica Aguilar MD Daykin, Emily C, GC screening encounter (Primary Dx); 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; Encounter of female for testing for genetic disease carrier status for procreative management 08/08/2023 9:58 AM CDT - 08/08/2023 11:59 PM CDT Hospital Encounter [facility] [place] [address] [facility] [address] [place] [phone] Mica Aguilar MD 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 Discharge Disposition: Home or Self Care 08/08/2023 Travel 08/01/2023 PRE VISIT [facility] Medicine [place] [address] [facility] [address] [place] [phone] Karie Barrow RN Genetic Counseling ([place]/di twins, screening); Ultrasound (NT); Consult ([place]/di twins) 07/22/2023 Orders Only [facility] Maternal Medicine [facility] [address] [address] Ashley Hassan RN 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 (Primary Dx) 07/22/2023 Transcribe Orders [facility]aternal Medicine [facility] [place] [address] [facility] [address] [place] [address] Raya Carson CNM related condition, antepartum (Primary Dx) 07/18/2023 Medical Correspondence [facility] [address] [place] [address] Scan, Non-Provider from Last 3 Months [...] Description 09/05/2023 11:30 AM CDT Virtual Visit [facility] Insurance Verification 09/12/2023 2:15 PM CDT Appointment [facility] Maternal Medicine [place] [address] [facility] [address] [place] [address] Mica Aguilar MD [address] [place] [address] Angelica Wright MD [address] [place] [address] 09/12/2023 2:45 PM CDT Office Visit [facility] Maternal Medicine [place] [address] [facility] [address] [place] [address] Mica Aguilar MD [address] [place], [place] [address] Angelica Wright MD [address] [place] [address] 09/26/2023 1:30 PM CDT Appointment [facility] Maternal Medicine [facility] [address] [place] [phone] Mica Aguilar MD [address] [address] 09/26/2023 2:45 PM CDT Office Visit [facility] Maternal Medicine [facility] [address] [place] [phone] Mica Aguilar MD [address] [address] 10/10/2023 12:00 PM CDT Appointment [facility] Heart Care [address] [place] [address] [phone] Mica Aguilar MD [address] 4589[address] 10/10/2023 1:00 PM CDT Appointment [facility] Heart Care [address] [place] [address] [phone] Mica Aguilar MD [address] 869774 10/10/2023 2:15 PM CDT Appointment [facility] Maternal Medicine [address] [place] [phone] Mica Aguilar MD [address] [place] [address] 10/10/2023 2:45 PM CDT Office Visit [facility] Maternal Medicine [facility] [place] [address] [place] [address] Mica Aguilar MD [address] [place] [address] Health Maintenance Due Date Last [...] ? Study Date: ??08/29/2023 1:33pm Pat. NO: ??[id number] ?Referring ??MD: RAYA CARSON Site: ? Upholsterer Helper: Carmen Zurita RDMS : ??2000 ?Age: ?? [...] ?0 lb 5 ?oz EFW by ?Hadlock ([id number]-[id number]-FL) EFW discordance ?10.2 ?% Head / Face [...] ?0 lb 5 ?oz EFW by ?Hadlock ([id number]) EFW discordance ?10.2 ?% Head / Face [...] be visualized: Heart / Thorax ?3-vessel view. 7-ajzaxu-wzxmxmk view. Fetus 2: ANATOMY ----- The following structures appear normal: Head / Neck ? Cranium. Head size. Head shape. Lateral ventricles. Choroid plexus. Midline falx. Cavum septi pellucidi. Cerebellum. Cisterna magna. ? Parenchyma. Thalami. ? Neck. Nuchal fold. Face ? Lips. Profile. Nose. Maxilla. Mandible. Orbits. Lens. Heart / Thorax ?4-chamber view. RVOT view. LVOT view. 3-vessel view. 2-dugkkt-jrldakn view. Situs. Aortic arch view. Bicaval view. [...] The patient is scheduled to return to [facility] in 2 weeks to assess for [...] MISHRA Study Date: 08/29/2023 1:33pm Pat. NO: [id number] Referring MD: RAYA CARSON Site: Upholsterer Helper: Carmen Zurita RDMS : 2000 Age: 22 [...] EFW (lb,oz) 0 lb 5oz EFW by Hadlock([id number]-AD-[id number]-FL) EFW discordance 10.2% Head / Face / Neck Biometry: CM 4.6mm Nasal bone 4.1mm Fetus 2: BIOMETRY ----- BPD 33.2mm 16w 2dHadlock OFD 42.0mm 15w 0dNicolaides HC 120.9mm 16w 0dHadlock Cerebellum tr 16.2mm 16w 1dNicolaides Nuchal fold 2.2mm AC 101.3mm 16w 1d 40%Hadlock Femur 21.6mm 16w 3dHadlock Humerus 20.8mm 16w 1dJeanty Weight Calculation: EFW 151g 32%Hadlock EFW (lb,oz) 0 lb 5oz EFW by Hadlock(UQH-BD-TA-FL) EFW discordance 10.2% Head / Face / [...] be visualized: Heart / Thorax 3-vessel view. 8-whejci-sylxfaacyty. Fetus 2: ANATOMY ----- The following structures appear normal: Head / Neck Cranium. Head size. Head shape.Lateral ventricles. Choroid plexus. Midline falx. Cavum septi pellucidi.Cerebellum. Cisterna magna. Parenchyma. Thalami. Neck. Nuchal fold. Face Lips. Profile. Nose. Maxilla.Mandible. Orbits. Lens. Heart / Thorax 4-chamber view. RVOT view. LVOT view.3-vessel view. 6-wwbesl-mabiifh view. Situs. Aortic arch view. Bicavalview. Ductal [...] The patient is scheduled to return to [facility] in 2 weeks to assess forTTTS/TAPS [...] no evidence for TTTS/TAPS. Mica Aguilar MD [facility] ORDERABLE S * [employer] Non-Invasive Screening???Prequel (08/08/2023 12:45 PM CDT) See Scanned Result [facility] NON-INVASIVE SCREENING PREQUEL-Scann ed 08/14/2023 11:49 AM CDT [employer] Blood STRUCTURE OF RIGHT UPPER LIMB / Unknown Venipuncture / Unknown 08/08/2023 12:45 PM CDT 08/08/2023 12:45 PM CDT Nelsy Diaz GC LAB - BLOOD ORDERABL ES [employer] [address] [place], [place] [address] [phone] * (ABNORMAL) Other Laboratory; [place]; [employer] Expanded Carrier Screening (Laboratory Miscellaneous Order) (08/08/2023 12:45 PM CDT) See Scanned Result LABORATORY MISCELLANEOUS ORDER-Scanned(A) 08/20/2023 11:47 AM CDT MISCELLANEOUS TESTING Blood STRUCTURE OF RIGHT UPPER LIMB / Unknown Venipuncture / Unknown 08/08/2023 12:45 PM CDT 08/08/2023 12:45 PM CDT Nelsy Diaz GC LAB - BLOOD ORDERABL ES Performing Organization Address [facility]/ZIP Co de Phone Number MISCELLANEOUS TESTING * [...] ? Study Date: ??08/08/2023 11:06am Pat. NO: ??[id number] ?Referring ??MD: RAYA CARSON Site: ??[place] ? Upholsterer Helper: Christopher Street RDMS : ??2000 ?Age: [...] MISHRA Study Date: 08/08/2023 11:06am Pat. NO: [id number] Referring MD: RAYA CARSON Site: [facility] Upholsterer Helper: Christopher Street RDMS : 2000 Age: [...] for early gestational age. Mica Aguilar MD [facility] MF US ORDERABLE S from Last 3 Months Care Teams Carousel Operator Relationship Specialty Start Date End Date No Ref-Primary, Physician PCP - General 07/22/23 Mica Aguilar MD [address] [facility] [address] [place] [address] Assigned OBGYN Provider 08/31/23
--- OUTSIDE RECORDS SUMMARY | 2023-09-03 11:19 | XMS_ITS | Encounter Summary ---
Author Organization [place] Address [address] [facility] [place] [address] Care Team Providers Care [employer] Social Science Teacher Name Role Phone No Ref-Primary, Physician Primary Care Provider Reason for Visit * Reason Comments Ultrasound 2/3 complete-mono/di twins Encounter Details Date Type Department Care Team (Latest Contact Info) Description 08/29/2023 2:00 PM CDT Office Visit [facility] M[facility] Medicine [facility] [place] [address] [facility] [address] [place] [address] Mica Aguilar MD [address] [place] [address] Case Berrios MD [address] [place] [address] Monochorionic diamniotic twin gestation in [...] for details of today's US at the [facility]. Case Berrios MD Maternal- Medicine documented in this encounter Plan of Treatment Upcoming Encounters Date Type Department Care Team (Late st Contact Info) Description 09/05/2023 11:30 AM CDT Virtual Visit [facility] Insurance Verification 09/12/2023 2:15 PM CDT Appointment [facility] Medicine [place] [address] [place] [phone] Mica Aguilar MD [address] [place], [place] [phone] Angelica Wright MD [address] [place], [place] [address] 09/12/2023 2:45 PM CDT Office Visit [facility] Medicine [place] [address] [place] [phone] Mica Aguilar MD [address] [place], [place] [phone] Angelica Wright MD [address] [place], [place] [phone] 09/26/2023 1:30 PM CDT Appointment [facility] Medicine [place] [address] [place] [phone] Mica Aguilar MD [address] [place], [place] [address] 09/26/2023 2:45 PM CDT Office Visit [facility] Medicine [place] [address] [place] [phone] Mica Aguilar MD [address] [place], [place] [address] 10/10/2023 12:00 PM CDT Appointment [facility] [address] [place] [phone] Mica Aguilar MD [address] [place] [address] 10/10/2023 1:00 PM CDT Appointment [facility] Heart Care [facility] [place] [phone] Mica Aguilar MD [address] [address] 10/10/2023 2:15 PM CDT Appointment [facility] [place] [address] [place] [phone] Mica Aguilar MD [address] [address] 10/10/2023 2:45 PM CDT Office Visit [facility] [place] [address] [place] [address] Mica Aguilar MD [address] [place] [address] documented as of this encounter Visit Diagnoses Diagnosis 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- Primary documented in this encounter Care Teams [employer] Social Science Teacher Relationship Specialty Start Date End Date No Ref-Primary, Physician PCP - General 07/22/23 documented as of this encounter
--- OUTSIDE RECORDS SUMMARY | 2023-09-03 11:19 | XMS_ITS | Encounter Summary ---
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 Mica Aguilar MD [address] [facility] [address] [address] Referral ID Status Reason Start Date Expiration Date V isits Requested Visits Authorized [id number] Pending Review 07/22/2023 07/21/2024 1 1 Question Answer MFM Consult Yes Comments Radiologic * Consultation (Routine: Next available opening) - Pending Review Specialty Diagnoses / Procedures Referred By Contac t Referred To Contact 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 Mica Aguilar MD [address] [place] [address] Referral ID Status Reason Start Date Expiration Date V isits Requested Visits Authorized [id number] Pending Review 07/22/2023 07/21/2024 1 1 * Diagnostic Imaging Ultrasound (Routine) - Pending Review Specialty Diagnoses / Procedures Referred By Contac t Referred To Contact Radiology. 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 Procedures MFM Twins Nuchal Trans w/US Mica Aguilar MD [address] [place] [address] Referral ID Status Reason Start Date Expiration Date V isits Requested Visits Authorized [id number] Pending Review 07/22/2023 07/21/2024 1 1 Encounter Details Date Type Department Care Team (Late st Contact Info) Description 07/22/2023 Orders Only [facility] Maternal Medicine [facility] [address] [place] [address] Ashley Hassan RN Monochorionic diamniotic [...] Description 09/05/2023 11:30 AM CDT Virtual Visit [facility] Insurance Verification 09/12/2023 2:15 PM CDT Appointment [facility] Maternal Medicine [facility] [address] [place] [phone] Mica Aguilar MD [address] [place] [address] Angelica Wright MD [address] [place] [address] 09/12/2023 2:45 PM CDT Office Visit [facility] Maternal Medicine [facility] [address] [place] [phone] Mica Aguilar MD [address] [place] [address] Angelica Wright MD [address] [place] [address] 09/26/2023 1:30 PM CDT Appointment [facility] Maternal Medicine [facility] [address] [place] [phone] Mica Aguilar MD [address] [place] [address] 09/26/2023 2:45 PM CDT Office Visit [facility] Maternal Medicine [facility] [address] [place] [phone] Mica Aguilar MD [address] [place] [address]67[address] 10/10/2023 12:00 PM CDT Appointment [facility] Heart Care [address] [place] [phone] Mica Aguilar MD [address] [address] 10/10/2023 1:00 PM CDT Appointment [facility] Heart Care [address] [place] [phone] Mica Aguilar MD [address] [place], [place] [address] 10/10/2023 2:15 PM CDT Appointment [facility] Maternal Medicine Center [place] [address] [place] [phone] Mica Aguilar MD [address] [place] [address] 840744 10/10/2023 2:45 PM CDT Office Visit [facility] Maternal Medicine [facility] [place] [address] [place], [place] [phone] Mica Aguilar MD [address] [facility] [address] [place], [place] [address] Scheduled Referrals Name Type Priority Associated Diagnoses Orde r Schedule [facility] Genetic Counseling Referral Routine: Next available opening 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 Expected: 07/22/2023 (Approximate), Expires: 07/21/2024 [facility] Office Visit Referral Routine: Next available opening 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 Expected: 07/22/2023 (Approximate), Expires: 07/21/2024 documented as of this encounter Results * [facility] Twins Nuchal Trans w/US (08/08/2023 11:54 AM [...] ? Study Date: ??08/08/2023 11:06am Pat. NO: ??[id number] ?Referring ??MD: RAYA SHAH Site: ??[facility] ? Head Esthetician: Christopher Street RDMS : ??2000 ?Age: ?? [...] MISHRA Study Date: 08/08/2023 11:06am Pat. NO: [id number] Referring MD: RAYA SHAH Site: [facility] Head Esthetician: Christopher Street RDMS : 2000 Age: 22 [...] ----- Thank-you for referring your patient for [facility] consult & ultrasoundassessment. We discussed the results [...] for early gestational age. 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
--- OUTSIDE RECORDS SUMMARY | 2023-09-03 11:19 | XMS_ITS | Referral Summary ---
Author Organization [place] Address [address] [address] Care Team Providers Care Flight Control Specialist Name Role Phone No Ref-Primary, Physician Primary Care Provider Mica Aguilar MD Unavailable [phone] Encounters Date Type Department Care Team Description 08/29/2023 Travel 08/29/2023 2:00 PM CDT Office Visit [facility] Maternal Medicine [facility] [address] [place] [address] Mica Aguilar MD Rauk, Case Seals MD 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 (Primary Dx) 08/29/2023 1:19 PM CDT - 08/29/2023 11:59 PM CDT Hospital Encounter [facility]aternal Medicine [facility] [address] [place] [phone] Mica Aguilar MD Rau[place], Case Seals MD 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 Discharge Disposition: Home or Self Care 08/25/2023 Telephone [facility] Medicine [facility] [address] [place] [address] Nelsy Diaz GC Results (Expanded Carrier Screening with her partner) 08/14/2023 Telephone [facility] Maternal Medicine [facility] [address] [place] [address] Nelsy Diaz GC Results (Low Risk NIPT ) 08/08/2023 12:30 PM CDT Lab [facility] [address] [place] [phone] Mica Aguilar MD screening encounter; Encounter of female for testing for genetic disease carrier status for procreative management 08/08/2023 Travel 08/08/2023 9:58 AM CDT - 08/08/2023 11:59 PM CDT Hospital Encounter [facility]aternal Medicine [facility] [address] [facility] [address] [place] [address] Mica Aguilar MD 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 Discharge Disposition: Home or Self Care 08/08/2023 10:15 AM CDT Office Visit [facility] Medicine [facility] [address] [facility] [address] [place] [phone] Mica Aguilar MD Daykin, Emily C, GC screening encounter (Primary Dx); 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; Encounter of female for testing for genetic disease carrier status for procreative management 08/08/2023 11:45 AM CDT Office Visit [facility] Medicine [facility] [address] [facility] [address] [place] [address] Mica Aguilar MD 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 (Primary Dx) 08/01/2023 PRE VISIT [facility] Medicine [facility] [address] [facility] [address] [place] [address] Karie Barrow RN Genetic Counseling ([place]/di twins, screening); Ultrasound (NT); Consult ([place]/di twins) 07/22/2023 Orders Only [facility] Maternal Medicine [facility] [address] [place] [address] Ashley Hassan RN 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 (Primary Dx) 07/22/2023 Transcribe Orders [facility] [place] [address] [facility] [address] [place] [address] Raya Carson CNM related condition, antepartum (Primary Dx) 07/18/2023 Medical Correspondence [facility] [address] [place] [address] Scan, Non-Provider from Last 3 Months [...] Description 09/05/2023 11:30 AM CDT Virtual Visit [facility] Insurance Verification 09/12/2023 2:15 PM CDT Appointment [facility] Maternal Medicine [place] [address] [facility] [address] [place] [address] Mica Aguilar MD [address] [place] [address] Angelica Wright MD [address] [place] [address] 09/12/2023 2:45 PM CDT Office Visit [facility] Maternal Medicine [place] [address] [facility] [address] [place] [address] Mica Aguilar MD [address] [place], [place] [address] Angelica Wright MD [address] [place] [address] 09/26/2023 1:30 PM CDT Appointment [facility] Maternal Medicine [facility] [address] [place] [phone] Mica Aguilar MD [address] [address] 09/26/2023 2:45 PM CDT Office Visit [facility] Maternal Medicine [facility] [address] [place] [phone] Mica Aguilar MD [address] [address] 10/10/2023 12:00 PM CDT Appointment [facility] Heart Care [address] [place] [phone] Mica Aguilar MD [address] 4[address] 10/10/2023 1:00 PM CDT Appointment [facility] Heart Care [address] [place] [phone] Mica Aguilar MD [address] [address] 10/10/2023 2:15 PM CDT Appointment [facility] Maternal Medicine [address] [place] [phone] Mica Aguilar MD [address] [place] [address] 10/10/2023 2:45 PM CDT Office Visit [facility] [place] [address] [place] [address] Mica Aguialr MD [address] [place] [address] Procedures Procedure Name Priority Date/Time [...] ? Study Date: ??08/29/2023 1:33pm Pat. NO: ??[id number] ?Referring ??: RAYA CARSON Site: ? Furniture Builder: Carmen Zurita RDMS : ??2000 ?Age: ?? 22 ----- INDICATION ----- Monochorionic, Diamniotic Twin gestation METHOD ----- Transabdominal ultrasound examination. View: Sufficient. ----- Twin . Number of fetuses: 2. Dichorionic-diamniotic DATING ----- ? Date ?Details ?Gest. age ?EFRNANDO LMP ?04/29/2023 ?Cycle: irregular cycle ? 17 [...] ?0 lb 5 ?oz EFW by ?Hadlock (TWQ-PO-FH-FL) EFW discordance ?10.2 ?% Head / Face [...] ?0 lb 5 ?oz EFW by ?Hadlock (ZJV-WD-PE-FL) EFW discordance ?10.2 ?% Head / Face [...] be visualized: Heart / Thorax ?3-vessel view. 6-vlagbz-yepmznw view. Fetus 2: ANATOMY ----- The following structures appear normal: Head / Neck ? Cranium. Head size. Head shape. Lateral ventricles. Choroid plexus. Midline falx. Cavum septi pellucidi. Cerebellum. Cisterna magna. ? Parenchyma. Thalami. ? Neck. Nuchal fold. Face ? Lips. Profile. Nose. Maxilla. Mandible. Orbits. Lens. Heart / Thorax ?4-chamber view. RVOT view. LVOT view. 3-vessel view. 4-yhvjdz-esrtkbm view. Situs. Aortic arch view. Bicaval view. [...] The patient is scheduled to return to [facility] in 2 weeks to assess for [...] MISHRA Study Date: 08/29/2023 1:33pm Pat. NO: [id number] Referring MD: RAYA CARSON Site: Furniture Builder: Carmen Zurita RDMS : 2000 Age: 22 [...] EFW (lb,oz) 0 lb 5oz EFW by Hadlock(NJS-FM-NO-FL) EFW discordance 10.2% Head / Face / Neck Biometry: CM 4.6mm Nasal bone 4.1mm Fetus 2: BIOMETRY ----- BPD 33.2mm 16w 2dHadlock OFD 42.0mm 15w 0dNicolaides HC 120.9mm 16w 0dHadlock Cerebellum tr 16.2mm 16w 1dNicolaides Nuchal fold 2.2mm AC 101.3mm 16w 1d 40%Hadlock Femur 21.6mm 16w 3dHadlock Humerus 20.8mm 16w 1dJeanty Weight Calculation: EFW 151g 32%Hadlock EFW (lb,oz) 0 lb 5oz EFW by Hadlock(CYS-AS-RI-FL) EFW discordance 10.2% Head / Face / [...] be visualized: Heart / Thorax 3-vessel view. 6-fyereo-leytugycwbm. Fetus 2: ANATOMY ----- The following structures appear normal: Head / Neck Cranium. Head size. Head shape.Lateral ventricles. Choroid plexus. Midline falx. Cavum septi pellucidi.Cerebellum. Cisterna magna. Parenchyma. Thalami. Neck. Nuchal fold. Face Lips. Profile. Nose. Maxilla.Mandible. Orbits. Lens. Heart / Thorax 4-chamber view. RVOT view. LVOT view.3-vessel view. 0-lnkowj-yljcqfr view. Situs. Aortic arch view. Bicavalview. Ductal [...] The patient is scheduled to return to [facility] in 2 weeks to assess forTTTS/TAPS [...] MD IMG MFM US ORDERABLE S * [facility] Non-Invasive Screening???Prequel (08/08/2023 12:45 PM CDT) See Scanned Result Clicker NON-INVASIVE SCREENING PREQUEL-Scann ed 08/14/2023 11:49 AM CDT [facility] Blood STRUCTURE OF RIGHT UPPER LIMB / Unknown Venipuncture / Unknown 08/08/2023 12:45 PM CDT 08/08/2023 12:45 PM CDT Nelsy Diaz [facility] - BLOOD ORDERABL ES Performing Organization Address City/[facility]/ZIP Co de Phone Number [facility] [address] [place] [address], [facility] [phone] * (ABNORMAL) Other Laboratory; Jerica; [facility] Expanded Carrier Screening (Laboratory Miscellaneous Order) (08/08/2023 12:45 PM CDT) See Scanned Result LABORATORY MISCELLANEOUS ORDER-Scanned(A) 08/20/2023 11:47 AM CDT MISCELLANEOUS TESTING Blood STRUCTURE OF RIGHT UPPER LIMB / Unknown Venipuncture / Unknown 08/08/2023 12:45 PM CDT 08/08/2023 12:45 PM CDT Nelsy Constantinokin [facility] - BLOOD ORDERABL ES MISCELLANEOUS TESTING [...] ? Study Date: ??08/08/2023 11:06am Pat. NO: ??[id number] ?Referring ??: RAYA CARSON Site: ??[facility] ? Furniture Builder: Christopher Street RDMS : ??2000 ?Age: ?? [...] MISHRA Study Date: 08/08/2023 11:06am Pat. NO: [id number] Referring MD: RAYA CARSON Site: [place] Furniture Builder: Christopher Street RDMS : 2000 Age: 22 [...] ----- Thank-you for referring your patient for [facility] consult & ultrasoundassessment. We discussed the [...] early gestational age. Mica Aguilar MD IMG [facility] US ORDERABLE S from Last 3 Months Care Teams Flight Control Specialist Relationship Specialty Start Date End Date No Ref-Primary, Physician PCP - General 07/22/23 Mica Aguilar MD [address] [address] Assigned OBGYN Provider 08/31/23
--- OUTSIDE RECORDS SUMMARY | 2023-09-03 11:19 | XMS_ITS | Encounter Summary ---
Author Organization [place] Address [address] [facility] [place] [address] Care Team Providers Care Core Dropper Name Role Phone No Ref-Primary, Physician Primary [...] Description 09/05/2023 11:30 AM CDT Virtual Visit [facility] Insurance Verification 09/12/2023 2:15 PM CDT Appointment [facility] Maternal Medicine [facility] [address] [facility] [address] [place] [address] Mica Aguilar MD [address] [place], [place] [address] Angelica Wright MD [address] [place], [place] [address] 09/12/2023 2:45 PM CDT Office Visit [facility] Maternal Medicine [facility] [address] [facility] [address] [place] [address] Mica Aguilar MD [address] [place] [address] Angelica Wright MD [address] [place] [address] 09/26/2023 1:30 PM CDT Appointment [facility] Maternal Medicine [facility] [address] [place] [phone] Mica Aguilar MD [address] [place] [address] 09/26/2023 2:45 PM CDT Office Visit [facility] Maternal Medicine [facility] [address] [place] [phone] Mica Aguilar MD [address] [address] 10/10/2023 12:00 PM CDT Appointment [facility] Heart Care [address] [place] [address] [phone] Mica Aguilar MD [address] 9[address] 10/10/2023 1:00 PM CDT Appointment [facility] Heart Care [address] [place] [phone] Mica Aguilar MD [address] [address] 10/10/2023 2:15 PM CDT Appointment [facility] Maternal Medicine [address] [phone] Mica Aguilar MD [address] [place] [address] 10/10/2023 2:45 PM CDT Office Visit [facility] Maternal Medicine [facility] [address] [place] [address] Mica Aguilar MD [address] [facility] [address] [place] [address] documented as of this encounter Visit Diagnoses Not on filedocumented in this encounter Care Teams Core Dropper Relationship Specialty Start Date End Date No Ref-Primary, Physician PCP - General 07/22/23 documented as of this encounter
--- OUTSIDE RECORDS SUMMARY | 2023-09-03 11:19 | XMS_ITS | Encounter Summary ---
Author Organization [place] Address [address] [facility] [place] [address] Care Team Providers Care Email Marketing Coordinator Name Role Phone No Ref-Primary, Physician Primary Care Provider Reason for Visit * Reason Onset Date Comments Results 08/25/2023 Expanded Carrier Screening with her partner Encounter Details Date Type Department Care Team (Late st Contact Info) Description 08/25/2023 Telephone [facility] Maternal Medicine [facility] [address] [place] [address] Nelsy Diaz GC [address] [facility] [address] [place] [address] Results (Expanded Carrier Screening with [...] Description 09/05/2023 11:30 AM CDT Virtual Visit [facility] Insurance Verification 09/12/2023 2:15 PM CDT Appointment [facility] Maternal Medicine [facility] [address] [place] [phone] Mica Aguilar MD [address] [place] [address] Angelica Wright MD [address] [place] [address] 09/12/2023 2:45 PM CDT Office Visit [facility] Maternal Medicine [place] [address] [place] [phone] Mica Aguilar MD [address] [place] [address] Angelica Wright MD [address] [place] [address] 09/26/2023 1:30 PM CDT Appointment [facility] Maternal Medicine [place] [address] [place] [phone] Mica Aguilar MD [address] [place] [address] 09/26/2023 2:45 PM CDT Office Visit [facility] Maternal Medicine [place] [address] [place] [phone] Mica Aguilar MD [address] [place] [address] 10/10/2023 12:00 PM CDT Appointment [facility] Heart Care [facility] [place] [phone] Mica Aguilar MD [address] [place] [address] 10/10/2023 1:00 PM CDT Appointment [facility] Heart Care [address] [place] [phone] Mica Aguilar MD [address] [place], [place] [address] [address] 10/10/2023 2:15 PM CDT Appointment [facility] Maternal Medicine [facility] [address] [place] [phone] Mica Aguilar MD [address] 756[address] 10/10/2023 2:45 PM CDT Office Visit [facility] Maternal Medicine [facility] [address] [place], [place] [address] Mica Aguilar MD [address] [place], [place] [address]E [address] [id number] documented as of this encounter Visit Diagnoses Not on filedocumented in this encounter Care Teams Email Marketing Coordinator Relationship Specialty Start Date End Date No Ref-Primary, Physician PCP - General 07/22/23 documented as of this encounter
--- OUTSIDE RECORDS SUMMARY | 2023-09-03 11:19 | XMS_ITS | Encounter Summary ---
Author Organization [place] Address [address] [facility] [place] [address] Care Team Providers Care Slp Teacher Name Role Phone No Ref-Primary, Physician Primary Care Provider Encounter Details Date Type Department Care Team (Late st Contact Info) Description 08/08/2023 12:30 PM CDT Lab [facility] [address] [place] [address] Mica Aguilar MD [address] [place] [address] screening encounter; Encounter of female [...] CDT Appointment [facility] [place] [address] [place] [phone] Mica Aguilar MD [address] [place] [address] Angelica Wright MD [address] [place] [address] 09/12/2023 2:45 PM CDT Office Visit [facility] [place] [address] [place] [phone] Mica Aguilar MD [address] [place] [address] Angelica Wright MD [address] [place] [address] 09/26/2023 1:30 PM CDT Appointment [facility] [place] [address] [place] [phone] Mica Aguilar MD [address] [place], [place] [address] 09/26/2023 2:45 PM CDT Office Visit [facility] [place] [address] [place] [phone] Mica Aguilar MD [address] [place] [address] [id number] 10/10/2023 12:00 PM CDT Appointment [facility] [address] [place] [phone] Mica Aguilar MD [address] [place] [address] 10/10/2023 1:00 PM CDT Appointment [facility] [address] [place] [address] Mica Aguilar MD [address] 5429[address] 10/10/2023 2:15 PM CDT Appointment [facility] [place] [address] [place] [phone] Mica Aguilar MD [address] [facility] [address] [place], [place] [address] 10/10/2023 2:45 PM CDT Office Visit [facility] [address] [place], [place] [address] Mica Aguilar MD [address] [place], [place] [address] [id number] documented as of this encounter Procedures Procedure [...] SCREENING PREQUEL-Scann ed 08/14/2023 11:49 AM CDT [facility] Blood STRUCTURE OF RIGHT UPPER LIMB / Unknown Venipuncture / Unknown 08/08/2023 12:45 PM CDT 08/08/2023 12:45 PM CDT Nelsy Diaz GC LAB - BLOOD ORDERABL ES [facility] [address] [phone] documented in this encounter Visit Diagnoses Diagnosis screening encounter Unspecified screening Encounter of female for testing for genetic disease carrier status for procreative management Testing of female for genetic disease carrier status documented in this encounter Care Teams Slp Teacher Relationship Specialty Start Date End Date No Ref-Primary, Physician PCP - General 07/22/23 documented as of this encounter
--- OUTSIDE RECORDS SUMMARY | 2023-09-03 11:19 | XMS_ITS | Encounter Summary ---
Author Organization [place] Address [facility] [place] [address] Care Team Providers Care Golf Tournament Consultant Name Role Phone No Ref-Primary, Physician Primary Care Provider Reason for Referral * Diagnostic Imaging Ultrasound (Routine) - Pending Review Specialty Diagnoses / Procedures Referred By Contac t Referred To Contact Radiology. 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 Procedures MFM Twins US Comprehensive F/U Mica Aguilar MD [address] [place] [address] Referral ID Status Reason Start Date Expiration Date V isits Requested Visits Authorized [id number] Pending Review 08/08/2023 08/07/2024 1 1 * (Routine) - Pending Review Specialty Diagnoses / Procedures Referred By Contac t Referred To Contact 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 Procedures Echo (TTE) Complete Mica Aguilar MD [address] [place] [address] Referral ID Status Reason Start Date Expiration Date V isits Requested Visits Authorized [id number] Pending Review 08/08/2023 08/07/2024 1 1 * (Routine) - Pending Review Specialty Diagnoses / Procedures Referred By Contac t Referred To Contact 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 Procedures Echo (TTE) Complete Mica Aguilar MD [address] [place] [address] Referral ID Status Reason Start Date Expiration Date V isits Requested Visits Authorized [id number] Pending Review 08/08/2023 08/07/2024 1 1 * Diagnostic Imaging Ultrasound (Routine) - Pending Review Specialty Diagnoses / Procedures Referred By Contac t Referred To Contact Radiology. 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 Procedures MFM Twins US Comprehensive Mica Aguilar MD [address] [place] [address] Referral ID Status Reason Start Date Expiration Date V isits Requested Visits Authorized [id number] Pending Review 08/08/2023 08/07/2024 1 1 * Diagnostic Imaging Ultrasound (Routine) - Pending Review Specialty Diagnoses / Procedures Referred By Contac t Referred To Contact Radiology. 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 Procedures MFM Twins US Comprehensive F/U Mica Aguilar MD [address] [place] [address] Referral ID Status Reason Start Date Expiration Date V isits Requested Visits Authorized [id number] Pending Review 08/08/2023 08/07/2024 1 1 * Diagnostic Imaging Ultrasound (Routine) - Pending Review Specialty Diagnoses / Procedures Referred By Contac t Referred To Contact Radiology. 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 Procedures MFM Twins US OB Complete 2/3 Tri Mica Aguilar MD [address] [place] [address] Referral ID Status Reason Start Date Expiration Date V isits Requested Visits Authorized [id number] Pending Review 08/08/2023 08/07/2024 1 1 Reason for Visit * Reason Comments Ultrasound NT-mono/di twins, sc reening Genetic Counseling Twins, screening Consult [place]/di twins * Consultation (Routine: Next available opening) - Pending Review Specialty Diagnoses / Procedures Referred By Tami peoples Referred To Contact 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 iMca Aguilar MD [address] [place] [address] Referral ID Status Reason Start Date Expiration Date V isits Requested Visits Authorized [id number] Pending Review 07/22/2023 07/21/2024 1 1 Encounter Details Date Type Department Care Team (Latest Contact Info) Description 08/08/2023 11:45 AM CDT Office Visit [facility] [place] [address] [facility] [address] [place] [address] Mica Aguilar MD [address] [place] [address] Monochorionic diamniotic twin gestation in [...] unequal placental sharing, which can result in Ezyv-or-Xzdx transfusion Syndrome (TTTS), Twin Anemia-Polycythemia Sequence (TAPS), [...] already taking this - Referral to a fire protection equipment technician: Goal diet for twin pregnancies is 3500 [...] to contact me. Sincerely, Mica Aguilar MD Supervisor Hanging And Trimming, PLATE SHOP HELPER Maternal- Medicine I spent a total of [...] recommendations. Patient was discharged ambulatory and stable. clinical advisor used for [facility] visit via IPAD, ID#[id number]. documented in this encounter Plan of Treatment Upcoming Encounters Date Type Department Care Team (Late st Contact Info) Description 09/05/2023 11:30 AM CDT Virtual Visit [facility] Insurance Verification 09/12/2023 2:15 PM CDT Appointment [facility] [place] [address] [place] [phone] Mica Aguilar MD [address] [place] [address] Angelica Wright MD [address] [place] [address] 09/12/2023 2:45 PM CDT Office Visit [facility] [place] [address] [place] [phone] Mica Aguilar MD [address] [place] [address] Angelica Wright MD [address] [place] [address] 09/26/2023 1:30 PM CDT Appointment [facility] [place] [address] [place] [phone] Mica Aguilar MD [address] [place] [address] [phone] 09/26/2023 2:45 PM CDT Office Visit [facility] [place] [address] [place] [phone] Mica Aguilar MD [address] [place] [phone] 10/10/2023 12:00 PM CDT Appointment [facility] [place] [phone] Mica Aguilar MD [address] [place] [address] 10/10/2023 1:00 PM CDT Appointment [facility] [address] [place] [phone] Mica Aguilar MD [address] [place] [address] 10/10/2023 2:15 PM CDT Appointment [facility] [place] [address] [place] [phone] Mica Aguilar MD [address] [place] [address] 10/10/2023 2:45 PM CDT Office Visit [facility] [place] [address] [place] [address] Mica Aguilar MD [address] [place] [address] [phone] Scheduled Orders Name Type Priority Associated Diagnoses [...] ? Study Date: ??08/29/2023 1:33pm Pat. NO: ??[id number] ?Referring ??MD: RAYA CARSON Site: ? Custom Studio Coordinator: Carmen Zurita [facility] : ??2000 ?Age: ?? 22 ----- INDICATION [...] ?0 lb 5 ?oz EFW by ?Hadlock ([id number]-[id number]-[id number]-FL) EFW discordance ?10.2 ?% Head / Face [...] ?0 lb 5 ?oz EFW by ?Hadlock ([id number]-MX-[id number]-FL) EFW discordance ?10.2 ?% Head / Face [...] be visualized: Heart / Thorax ?3-vessel view. 2-kesjth-evbspdu view. Fetus 2: ANATOMY ----- The following structures appear normal: Head / Neck ? Cranium. Head size. Head shape. Lateral ventricles. Choroid plexus. Midline falx. Cavum septi pellucidi. Cerebellum. Cisterna magna. ? Parenchyma. Thalami. ? Neck. Nuchal fold. Face ? Lips. Profile. Nose. Maxilla. Mandible. Orbits. Lens. Heart / Thorax ?4-chamber view. RVOT view. LVOT view. 3-vessel view. 4-wpbqdj-uudbtvt view. Situs. Aortic arch view. Bicaval view. [...] The patient is scheduled to return to [facility] in 2 weeks to assess for TTTS/TAPS [...] MISHRA Study Date: 08/29/2023 1:33pm Pat. NO: [id number] Referring MD: RAYA CARSON Site: [employer] Coordinator: Carmen Zurita RDMS : 2000 Age: 22 [...] EFW (lb,oz) 0 lb 5oz EFW by Hadlock([id number]-AX-[id number]-FL) EFW discordance 10.2% Head / Face / Neck Biometry: CM 4.6mm Nasal bone 4.1mm Fetus 2: BIOMETRY ----- BPD 33.2mm 16w 2dHadlock OFD 42.0mm 15w 0dNicolaides HC 120.9mm 16w 0dHadlock Cerebellum tr 16.2mm 16w 1dNicolaides Nuchal fold 2.2mm AC 101.3mm 16w 1d 40%Hadlock Femur 21.6mm 16w 3dHadlock Humerus 20.8mm 16w 1dJeanty Weight Calculation: EFW 151g 32%Hadlock EFW (lb,oz) 0 lb 5oz EFW by Hadlock([id number]-VG-HH-FL) EFW discordance 10.2% Head / Face / [...] be visualized: Heart / Thorax 3-vessel view. 1-euqatm-kpkffkcaljn. Fetus 2: ANATOMY ----- The following structures appear normal: Head / Neck Cranium. Head size. Head shape.Lateral ventricles. Choroid plexus. Midline falx. Cavum septi pellucidi.Cerebellum. Cisterna magna. Parenchyma. Thalami. Neck. Nuchal fold. Face Lips. Profile. Nose. Maxilla.Mandible. Orbits. Lens. Heart / Thorax 4-chamber view. RVOT view. LVOT view.3-vessel view. 4-ypwwnz-kqllfmd view. Situs. Aortic arch view. Bicavalview. Ductal [...] The patient is scheduled to return to [facility] in 2 weeks to assess forTTTS/TAPS and [...] no evidence for TTTS/TAPS. Mica Aguilar MD [facility] ORDERABLE S documented in this encounter Visit Diagnoses Diagnosis 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- Primary 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 documented in this encounter Care Teams Golf Tournament Consultant Relationship Specialty Start Date End Date No Ref-Primary, Physician PCP - General 07/22/23 documented as of this encounter
--- OUTSIDE RECORDS SUMMARY | 2023-09-03 11:19 | XMS_ITS | Encounter Summary ---
Author Organization [place] Address [address] [facility] [place] [address] Care Team Providers Care Soil Conservation Technician Name Role Phone No Ref-Primary, Physician Primary Care Provider Reason for Visit * Reason Onset Date Comments Results 08/14/2023 Low Risk NIPT Encounter Details Date Type Department Care Team (Late st Contact Info) Description 08/14/2023 Telephone [facility] Maternal Medicine [facility] [address] [place] [address] Nelsy Diaz GC [address] [facility], [address] [place] [address] Results (Low Risk NIPT ) [...] Description 09/05/2023 11:30 AM CDT Virtual Visit [facility] Insurance Verification 09/12/2023 2:15 PM CDT Appointment [facility]aternal Medicine [facility] [address] [place] [phone] Mica Aguilar MD [address] [place] [address] Angelica Wright MD [address] [place] [address] 09/12/2023 2:45 PM CDT Office Visit [facility] [place] [address] [place] [phone] Mica Aguilar MD [address] [place] [address] Angelica Wright MD [address] [place] [address] 09/26/2023 1:30 PM CDT Appointment [facility] Maternal Medicine [place] [address] [place] [phone] Mica Aguilar MD [address] [place] [address] 09/26/2023 2:45 PM CDT Office Visit [facility]aternal Medicine [place] [address] [place] [phone] Mica Aguilar MD [address] [place] [address] 10/10/2023 12:00 PM CDT Appointment [facility] [address] [place] [phone] Mica Aguilar MD [address] [place] [address] 10/10/2023 1:00 PM CDT Appointment [facility] [address] [place] [phone] Mica Aguilar MD [address] 4476[address] 10/10/2023 2:15 PM CDT Appointment [facility] Maternal Medicine [facility] [address] [place] [phone] Mica Aguilar MD [address] 8528[address] 10/10/2023 2:45 PM CDT Office Visit [facility] Maternal Medicine [facility] [address] [place] [address] Mica Aguilar MD [address] [facility] [address] [phone] documented as of this encounter Visit Diagnoses Not on filedocumented in this encounter Care Teams Soil Conservation Technician Relationship Specialty Start Date End Date No Ref-Primary, Physician PCP - General 07/22/23 documented as of this encounter
--- OUTSIDE RECORDS SUMMARY | 2023-09-03 11:19 | XMS_ITS | Encounter Summary ---
Author Organization [place] Address [address] [facility] [address] Care Team Providers Care Supervisor Speech Name Role Phone No Ref-Primary, Physician Primary Care Provider Reason for Referral * Diagnostic Imaging Ultrasound (Routine) - Pending Review Specialty Diagnoses / Procedures Referred By Contac t Referred To Contact Radiology. 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 Procedures MFM Twins Nuchal Trans w/US Mica Aguilar MD [address] [place] [address] Referral ID Status Reason Start Date Expiration Date V isits Requested Visits Authorized [id number] Pending Review 07/22/2023 07/21/2024 1 1 Reason for Visit * Diagnostic Imaging Ultrasound (Routine) - Pending Review Specialty Diagnoses / Procedures Referred By Contac t Referred To Contact Radiology. 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 Procedures MFM Twins Nuchal Trans w/US Mica Aguilar MD [address] [place] [address] Referral ID Status Reason Start Date Expiration Date V isits Requested Visits Authorized [id number] Pending Review 07/22/2023 07/21/2024 1 1 Encounter Details Date Type Department Care Team (Latest Contact Info) Description 08/08/2023 9:58 AM CDT - 08/08/2023 11:59 PM CDT Hospital Encounter [facility] Medicine [facility] [place] [address] [place] [phone] Mica Aguilar MD [address] [place], [place] [address] 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 [...] Description 09/05/2023 11:30 AM CDT Virtual Visit [facility] Insurance Verification 09/12/2023 2:15 PM CDT Appointment [facility] Medicine [place] [address] [facility] [address] [facility] [address] [place] [phone] Mica Aguilar MD [address] [place] [address]344 Angelica Wright MD [address] [place], [place] [address] 09/12/2023 2:45 PM CDT Office Visit [facility] Maternal Medicine [place] [address] [facility] [address] [place] [phone] Mica Aguilar MD [address] [place], [place] [address] Angelica Wright MD [address] [place] [address] 09/26/2023 1:30 PM CDT Appointment [facility] Maternal Medicine [facility] [address] [place] [phone] Mica Aguilar MD [address] [facility] [address] [place] [address] 09/26/2023 2:45 PM CDT Office Visit [facility] Maternal Medicine [facility] [address] [place] [phone] Mica Aguilar MD [address] [address] 10/10/2023 12:00 PM CDT Appointment [facility] [address] [place] [address] [phone] Mica Aguilar MD [address] [facility] [address] 9488[address] 10/10/2023 1:00 PM CDT Appointment [facility] [address] [place] [address] [phone] Mica Aguilar MD [address] [facility] [address] 687824 10/10/2023 2:15 PM CDT Appointment [facility] [place] [address] [place] [phone] Mica Aguilar MD [address] 1288[address] 10/10/2023 2:45 PM CDT Office Visit [facility] [place] [address] [place] [address] Mica Aguilar MD [address] [place] [address] documented as of this encounter Procedures Procedure [...] ? Study Date: ??08/08/2023 11:06am Pat. NO: ??[id number] ?Referring ??MD: RAYA SHAH Site: ??[facility] ? Manufacturing Software Engineer: [address] Street RDMS : ??2000 ?Age: ?? [...] MISHRA Study Date: 08/08/2023 11:06am Pat. NO: [id number] Referring MD: RAYA SHAH Site: [facility] Manufacturing Software Engineer: [address] Street RDMS : 2000 Age: 22 [...] for early gestational age. Mica Aguilar MD [facility] US ORDERABLE S documented in this encounter Visit Diagnoses Diagnosis 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 documented in this encounter Care Teams Supervisor Speech Relationship Specialty Start Date End Date No Ref-Primary, Physician PCP - General 07/22/23 documented as of this encounter
--- OUTSIDE RECORDS SUMMARY | 2023-09-03 11:19 | XMS_ITS | Encounter Summary ---
Author Organization [place] Address [address] [facility] [place] [address] Care Team Providers Care Inside Sales Person Name Role Phone No Ref-Primary, Physician Primary Care Provider Reason for Visit * Reason Comments Genetic Counseling * Consultation (Routine: Next available opening) - Pending Review Specialty Diagnoses / Procedures Referred By Contac t Referred To Contact 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 Mica Aguilar MD [address] [place] [address] Referral ID Status Reason Start Date Expiration Date V isits Requested Visits Authorized [id number] Pending Review 07/22/2023 07/21/2024 1 1 Encounter Details Date Type Department Care Team (Late st Contact Info) Description 08/08/2023 10:15 AM CDT Office Visit [facility] Maternal Medicine Center [place] [address] [facility] [address] [place] [address] Mica Aguilar MD [address] [facility] [address] [address] Nelsy Diaz GC [address] [facility] [address] [address] screening encounter (Primary Dx); Monochorionic [...] Service: 08/08/23 Kyara was seen at the [facility] for genetic consultation. The indication for genetic counseling is desire to discuss options for genetic screening and diagnostics. The patient was accompanied to this visit by her spouse, Ranjit. The session was conducted with a Macedonian ipad prototype special build ([place] prototype special build SP10) due to the patient speaking limited Arabic. IMPRESSION/ PLAN 1. Kyara has not had genetic screening in this but elected to have screening today. 2. During today's [facility] visit, Kyara had a blood draw for non-invasive testing (also called NIPT, NIPS, or cell-free DNA) through [employer] (Connect). This NIPT screens for trisomy 21, 18, [...] information communicated to Kyara's mother, Virginia Villegas ([phone]). Kyara wasinformed that results, including sex, will be available in [facility]. 3. Since the patient chose aneuploidy screening via NIPT, quad screen is NOT recommended in the second trimester. If the patient desires screening for open neural tube defects, maternal serum AFP only is recommended, ideally between 16- 18 weeks gestation. 4. Kyara and Ranjit elected to pursue expanded carrier screening for 574 conditions through [employer]. Results are expected within 2-3 weeks, and will be available in [facility]. We will contact the couple to discuss [...] severely affected. screening was reviewed. About [place] Screening The patient does NOT have a [...] The screening will include 574 conditions through [employer]. See below for the more detailed information [...] abnormal result. Less validation data is available [facility] and some insurance plans will not cover this screening in twin pregnancies. Additionally, NIPT for twin pregnancies does not allow for assessment of all sex chromosome differences. NIPT run on a SNP platform (Getix) can screen for monosomy X if the [...] for a further conversation about NIPT through [employer] versus [employer]. Kyara has not had genetic screening in [...] (NIPT) We reviewed options for NIPT through [employer] versus [employer] in the context of a twin gestation: NIPT run on a SNP platform (Panorama through [employer]) will determine zygosity. It will screen for trisomy 21, trisomy 18, trisomy 13, and triploidy in all twin pregnancies. For monozygotic and dizygotic twins, it can provide the predicted sexes For monozygotic twins only, it can screen for sex chromosome differences (monosomy X and trisomies)and 22q11.2 deletion syndrome. SNP-based NIPT platform has an estimated 10% failure rate for twins NIPT through MPS platform (Classroom IQquel through [employer]) can only screen for trisomy 21, trisomy 18, and trisomy 13 in twin pregnancies. It can also predict the sex for each twin ([employer]). [employer]'s platform has an estimated 0.1% failure rate for twins (same as the standard Prequel failure rate). Kyara and Ranjit elected [employer]. We discussed the following ultrasound options: Nuchal translucency (NT) ultrasound Ultrasound between [id number] that includes nuchal translucency measurement and nasal [...] pleasure to be involved with Kyara???s wayne. Utps-my-yveu time of the meeting was 60 minutes. Nelsy Diaz MS, [facility] Maternal Medicine Office: [phone] [facility]: [phone] [facility] documented in this encounter Plan of Treatment Upcoming Encounters Date Type Department Care Team (Late st Contact Info) Description 09/05/2023 11:30 AM CDT Virtual Visit [facility] Insurance Verification 09/12/2023 2:[address] [facility] Maternal Medicine [place] [address] [place] [address] Mica Aguilar MD [address] [place] [address] Angelica Wright MD [address] [place] [address] 09/12/2023 2:45 PM CDT Office Visit [facility] Maternal Medicine [place] [address] [place] [phone] Mica Aguilar MD [address] [place] [address] Angelica Wright MD [address] [place] [address] 09/26/2023 1:[address] [facility] Maternal Medicine [place] [address] [place] [phone] Mica Aguilar MD [address] [place] [address] 09/26/2023 2:45 PM CDT Office Visit [facility] Maternal Medicine [place] [address] [place] [phone] Mica Aguilar MD [address] [place] [address] 10/10/2023 12:00 PM CDT Appointment [facility] Heart [address] [phone] Mica Aguilar MD [address] [place] [phone] 10/10/2023 1:00 PM CDT Appointment [facility] [place] [phone] Mica Aguilar MD [address] [facility] [address] [address] 10/10/2023 2:[address] [facility] Maternal Medicine [facility] [place] [address] [facility] [phone] Mica Aguilar MD [address] [place] [address] 10/10/2023 2:45 PM CDT Office Visit [facility] Medicine [facility] [place] 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
--- OUTSIDE RECORDS SUMMARY | 2023-09-03 11:19 | XMS_ITS | Encounter Summary ---
Author Organization [place] Address [address] [facility] [place] [address] Care Team Providers Care Roll Changer Name Role Phone No Ref-Primary, Physician Primary Care Provider Reason for Referral * Diagnostic Imaging Ultrasound (Routine) - Pending Review Specialty Diagnoses / Procedures Referred By Contac t Referred To Contact Radiology. 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 Procedures MFM Twins US OB Complete 2/3 Tri Mica Aguilar MD [address] [place] [address] Referral ID Status Reason Start Date Expiration Date V isits Requested Visits Authorized [id number] Pending Review 08/08/2023 08/07/2024 1 1 Reason for Visit * Diagnostic Imaging Ultrasound (Routine) - Pending Review Specialty Diagnoses / Procedures Referred By Contac t Referred To Contact Radiology. 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 Procedures MFM Twins US OB Complete 2/3 Tri Mica Aguilar MD [address] [place] [address] Referral ID Status Reason Start Date Expiration Date V isits Requested Visits Authorized [id number] Pending Review 08/08/2023 08/07/2024 1 1 Encounter Details Date Type Department Care Team (Latest Contact Info) Description 08/29/2023 1:19 PM CDT - 08/29/2023 11:59 PM CDT Hospital Encounter [facility] Maternal Medicine [place] [address] [place] [phone] Mica Aguilar MD [address] [place], [place] [phone] Case Berrios MD [address] [place], [place] [phone] 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 [...] Description 09/05/2023 11:30 AM CDT Virtual Visit [facility] Insurance Verification 09/12/2023 2:15 PM CDT Appointment [facility] Maternal Medicine [place] [address] [address] [place] [phone] Mica Aguilar MD [address] [place], [place] [address] Angelica Wright MD [address] [place], [place] [phone] 09/12/2023 2:45 PM CDT Office Visit [facility] Maternal Medicine [place] [address] [facility] [address] [place] [phone] Mica Aguilar MD [address] [place], [place] [phone] Angelica Wright MD [address] [place] [address] 09/26/2023 1:30 PM CDT Appointment [facility] Maternal Medicine [facility] [address] [place] [phone] Mica Aguilar MD [address] [place] [address] 09/26/2023 2:45 PM CDT Office Visit [facility] Maternal Medicine [facility] [address] [facility] [address] [place] [phone] Mica Aguilar MD [address] [place] [address] 10/10/2023 12:00 PM CDT Appointment [facility] Heart Care [address] [place] [phone] Mica Aguilar MD [address] [place] [address] 10/10/2023 1:00 PM CDT Appointment [facility] Care [address] [place] [phone] Mica Aguilar MD [address] [place] [address] 10/10/2023 2:15 PM CDT Appointment [facility] Maternal Medicine [facility] [address] [place] [phone] Mica Aguilar MD [address] [place], [place] [address] 10/10/2023 2:45 PM CDT Office Visit [facility] Maternal Medicine [facility] [address] [place], [place] [address] Mica Aguilar MD [address] [place], [place] [address] documented as of this encounter Procedures Procedure [...] ? Study Date: ??08/29/2023 1:33pm Pat. NO: ??[id number] ?Referring ??MD: RAYA SHAH Site: ? Slitting Machine Operator: Carmen Zurita RDMS : ??2000 [...] ?0 lb 5 ?oz EFW by ?Hadlock ([id number]) EFW discordance ?10.2 ?% Head / Face [...] ?0 lb 5 ?oz EFW by ?Hadlock ([id number]) EFW discordance ?10.2 ?% Head / Face [...] be visualized: Heart / Thorax ?3-vessel view. 0-yqlyyx-tzksvvf view. Fetus 2: ANATOMY ----- The following structures appear normal: Head / Neck ? Cranium. Head size. Head shape. Lateral ventricles. Choroid plexus. Midline falx. Cavum septi pellucidi. Cerebellum. Cisterna magna. ? Parenchyma. Thalami. ? Neck. Nuchal fold. Face ? Lips. Profile. Nose. Maxilla. Mandible. Orbits. Lens. Heart / Thorax ?4-chamber view. RVOT view. LVOT view. 3-vessel view. 1-vngwvl-wevbrhw view. Situs. Aortic arch view. Bicaval view. [...] The patient is scheduled to return to [facility] in 2 weeks to assess for [...] MISHRA Study Date: 08/29/2023 1:33pm Pat. NO: [id number] Referring MD: RAYA SHAH Site: Slitting Machine Operator: Carmen Zurita RDMS : 2000 [...] EFW (lb,oz) 0 lb 5oz EFW by Hadlock([id number]-EL-[id number]-FL) EFW discordance 10.2% Head / Face / Neck Biometry: CM 4.6mm Nasal bone 4.1mm Fetus 2: BIOMETRY ----- BPD 33.2mm 16w 2dHadlock OFD 42.0mm 15w 0dNicolaides HC 120.9mm 16w 0dHadlock Cerebellum tr 16.2mm 16w 1dNicolaides Nuchal fold 2.2mm AC 101.3mm 16w 1d 40%Hadlock Femur 21.6mm 16w 3dHadlock Humerus 20.8mm 16w 1dJeanty Weight Calculation: EFW 151g 32%Hadlock EFW (lb,oz) 0 lb 5oz EFW by Hadlock([id number]-GO-PY-FL) EFW discordance 10.2% Head / Face / [...] be visualized: Heart / Thorax 3-vessel view. 1-emxdrj-ndrpfanrycb. Fetus 2: ANATOMY ----- The following structures appear normal: Head / Neck Cranium. Head size. Head shape.Lateral ventricles. Choroid plexus. Midline falx. Cavum septi pellucidi.Cerebellum. Cisterna magna. Parenchyma. Thalami. Neck. Nuchal fold. Face Lips. Profile. Nose. Maxilla.Mandible. Orbits. Lens. Heart / Thorax 4-chamber view. RVOT view. LVOT view.3-vessel view. 9-iwvunf-yblcqop view. Situs. Aortic arch view. Bicavalview. Ductal [...] The patient is scheduled to return to [facility] in 2 weeks to assess forTTTS/TAPS [...] no evidence for TTTS/TAPS. Mica Aguilar MD [facility] US ORDERABLE S documented in this encounter Visit Diagnoses Diagnosis 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 documented in this encounter Care Teams Roll Changer Relationship Specialty Start Date End Date No Ref-Primary, Physician PCP - General 07/22/23 documented as of this encounter
--- OUTSIDE RECORDS SUMMARY | 2023-09-03 11:19 | XMS_ITS | Encounter Summary ---
Author Organization [place] Address [address] [facility] [place] [address] Care Team Providers Care Stitch Bonding Machine Operator Name Role Phone No Ref-Primary, Physician Primary Care Provider Reason for Visit * Reason Comments Genetic Counseling Camp/di twins, scree yohana Ultrasound NT Consult Camp/di twins Encounter Details Date Type Department Care Team (Late st Contact Info) Description 08/01/2023 PRE VISIT [facility] Maternal Medicine [facility] [address] [place] [address] Karie Brarow RN Genetic Counseling (Camp/di twins, screening); Ultrasound (NT); Consult (Camp/di twins) Social History Tobacco Use Types Packs/Day [...] Description 09/05/2023 11:30 AM CDT Virtual Visit [facility] Insurance Verification 09/12/2023 2:15 PM CDT Appointment [facility] Maternal Medicine [facility] [address] [place] [address] Mica Aguilar MD [address] [place], [place] [address] Angelica Wright MD [address] [place] [address] 09/12/2023 2:45 PM CDT Office Visit [facility] Maternal Medicine Center [place] [address] [place] [phone] Mica Aguilar MD [address] [place] [address] Angelica Wright MD [address] [place] [address] 09/26/2023 1:30 PM CDT Appointment [facility] Maternal Medicine [place] [address] [place] [phone] Mica Aguilar MD [address] [place] [address] 09/26/2023 2:45 PM CDT Office Visit [facility] Maternal Medicine [place] [address] [place] [phone] Mica Aguilar MD [address] [place] [address] 10/10/2023 12:00 PM CDT Appointment [facility] Heart Care [address] [place] [phone] Mica Aguilar MD [address] [place] [address] 10/10/2023 1:00 PM CDT Appointment [facility] Heart Care [address] [place] [phone] Mica Aguilar MD [address] [place], [place] [address] [address] 10/10/2023 2:15 PM CDT Appointment [facility] Maternal Medicine [facility] [address] [facility] [place] [phone] Mica Aguilar MD [address] [place], [place] [address] [address] [address] 10/10/2023 2:45 PM CDT Office Visit [facility] Maternal Medicine [facility] [address] [place] [address] Mica Aguilar MD [address] [place] [phone] documented as of this encounter Visit Diagnoses Not on filedocumented in this encounter Care Teams Stitch Bonding Machine Operator Relationship Specialty Start Date End Date No Ref-Primary, Physician PCP - General 07/22/23 documented as of this encounter
--- OUTSIDE RECORDS SUMMARY | 2023-09-03 11:20 | XMS_ITS | Encounter Summary ---
Author Organization [place] Address [address] [place] [address] Care Team Providers Care Process Automation Engineer Name Role Phone No Ref-Primary, Physician Primary Care Provider Encounter Details Date Type Department Care Team (Late st Contact Info) Description 07/18/2023 Medical Correspondence [facility] [address] [place] [address] Scan, Non-Provider Social History Tobacco [...] Description 09/05/2023 11:30 AM CDT Virtual Visit [facility] Insurance Verification 09/12/2023 2:15 PM CDT Appointment [facility] Maternal Medicine [facility] [address] [facility] [address] [place] [phone] Mica Aguilar MD [address] [place], [place] [address] Angelica Wright MD [address] [place], [place] [address] 09/12/2023 2:45 PM CDT Office Visit [facility] Maternal Medicine Center [place] [address] [place] [phone] Mica Aguilar MD [address] [place] [address] Angelica Wright MD [address] [place] [address] 09/26/2023 1:30 PM CDT Appointment [facility] Maternal Medicine [place] [address] [place] [phone] Mica Aguilar MD [address] [place] [address] 09/26/2023 2:45 PM CDT Office Visit [facility] Maternal Medicine [place] [address] [place] [phone] Mica Aguilar MD [address] [place] [phone] 10/10/2023 12:00 PM CDT Appointment [facility] Heart Care [address] [place] [phone] Mica Aguilar MD [address] [place] [address] 10/10/2023 1:00 PM CDT Appointment [facility] Heart Care [address] [place] [address] [phone] Mica Aguilar MD [address] [place] [address] 10/10/2023 2:15 PM CDT Appointment [facility] Maternal Medicine [facility] [place] [address] [place] [phone] Mica Aguilar MD [address] [facility] [address] [place], [place] [address] 10/10/2023 2:45 PM CDT Office Visit [facility] Maternal Medicine [facility] [address] [place] [address] Mica Aguilar MD [address] [facility] [address] [place], [place] [address] documented as of this encounter Visit Diagnoses Not on filedocumented in this encounter Care Teams Process Automation Engineer Relationship Specialty Start Date End Date No Ref-Primary, Physician PCP - General 07/22/23 documented as of this encounter
--- OUTSIDE RECORDS SUMMARY | 2023-09-03 11:20 | XMS_ITS | Encounter Summary ---
Author Organization [place] Address Counts include 234 beds at the [facility] [place] [address] Care Team Providers Care Data Security Consultant Name Role Phone No Ref-Primary, Physician Primary Care Provider Reason for Referral * Consultation (Routine: Next available opening) - Pending Review Specialty Diagnoses / Procedures Referred By Contac t Referred To Contact Diagnoses related condition, antepartum Tomasa Carson CNM [facility] [address] [place] [address] [facility] Maternal [facility] [address] [place] [address] Referral ID Status Reason Start Date Expiration Date V isits Requested Visits Authorized [id number] Pending Review 07/22/2023 07/21/2024 1 1 Question Answer Preferred Location: [facility] [place] 02/10/2024 Ultrasound NONE US PROC NONE MFM Issue OTHER (enter details in Comments) - mono-di twins, monitoring + plan for pregnacy MFM MD Consultation (unrelated to Ultrasound findings): Yes Inflammatory Bowel Disease Clinic: Joint MFM and GI Consultation: No Chronic Kidney Disease: Joint MFM and Nephrology Consultation No Genetic Counseling Consultation: No fax [facility] - Tomasa Carson - Comments There is [...] (Latest Contact Info) Description 07/22/2023 Transcribe Orders [facility] Maternal Medicine [place] [address] [facility] [address] [place] [phone] [facility] [address] [place] [address] related condition, antepartum (Primary Dx) Social History [...] Description 09/05/2023 11:30 AM CDT Virtual Visit [facility] Insurance Verification 09/12/2023 2:15 PM CDT Appointment [facility] Maternal Medicine [place] [address] [facility] [address] [place] [address] [phone] Mica Aguilar MD [address] [place], [place] [address] Angelica Wright MD [address] [place], [place] [address] 09/12/2023 2:45 PM CDT Office Visit [facility] Maternal Medicine [place] [address] [facility] [address] [place] [phone] Mica Aguilar MD [address] [place], [place] [address] Angelica Wright MD [address] [place], [place] [phone] 09/26/2023 1:30 PM CDT Appointment [facility] Maternal Medicine Center [place] [address] [place] [phone] Mica Aguilar MD [address] [place] [address] 09/26/2023 2:45 PM CDT Office Visit [facility] Maternal Medicine [facility] [address] [place] [phone] Mica Aguilar MD [address] 8[address] 10/10/2023 12:00 PM CDT Appointment [facility] Heart Care [address] [place] [phone] Mica Aguilar MD [address] 389[address] 10/10/2023 1:00 PM CDT Appointment [facility] Care [address] [place] [address] [phone] Mica Aguilar MD [address] 037804 10/10/2023 2:15 PM CDT Appointment [facility] Maternal Medicine [facility] [place] [address] [place] [phone] Mica Aguilar MD [address] 221734 10/10/2023 2:45 PM CDT Office Visit [facility] Maternal Medicine [facility] [place] [address] [place], [place] [address] Mica Aguilar MD [address] [place], [place] [address] Scheduled Referrals Name Type Priority Associated Diagnoses Orde r Schedule Mat Med Ctr Referral - Referral Routine: Next available opening related condition, antepartum Expected: 07/22/2023 (Approximate), Expires: 01/18/2024 documented as of this encounter Visit Diagnoses Diagnosis related condition, antepartum- Primary documented in this encounter Care Teams Data Security Consultant Relationship Specialty Start Date End Date No Ref-Primary, Physician PCP - General 07/22/23 documented as of this encounter
--- OUTSIDE RECORDS SUMMARY | 2023-09-03 11:20 | XMS_ITS | Clinical Summary ---
Author Organization [facility] Address [place], [place] [address] Care Team Providers Care Certified Nurses' Aide Name Role Phone None Primary Care Provider [...] CDT - 06/24/2023 7:50 PM CDT Emergency [facility] [address] [place] [address] Una Franks NP Abdominal pain during , [...] 06/24/2023 7:36:39 PM (Electronically Signed) Una Franks CHECK AND TRANSFER BEADER US * CBC WITH AUTO DIFFERENTIAL (06/24/2023 4:30 PM CDT) WHITE BLOOD COUNT 10.2 4.5 - 11.0 thou/cu mm 06/24/2023 4:39 PM [facility] RED BLOOD COUNT 4.34 4.00 - 5.20 mil/cu mm 06/24/2023 4:39 PM [facility] HEMOGLOBIN 12.7 12.0 - 16.0 g/dL 06/24/2023 4:39 PM [facility] HEMATOCRIT 37.0 33.0 - 51.0 % 06/24/2023 4:39 PM [facility] MCV 85 80 - 100 fL 06/24/2023 4:39 PM [facility] MCH 29.3 26.0 - 34.0 pg 06/24/2023 4:39 PM [facility] MCHC 34.3 32.0 - 36.0 g/dL 06/24/2023 4:39 PM [facility] RDW 12.5 11.5 - 15.5 % 06/24/2023 4:39 PM [facility] PLATELET COUNT 265 140 - 440 thou/cu mm 06/24/2023 4:39 PM [facility] MPV 10.2 6.5 - 11.0 fL 06/24/2023 4:39 PM [facility] % NEUT 66.9 % 06/24/2023 4:39 PM [facility] % LYMPH 23.4 % 06/24/2023 4:39 PM [facility] % MONO 5.6 % 06/24/2023 4:39 PM CDT [facility] % EOS 3.6 % 06/24/2023 4:39 PM CDT [facility] % BASO 0.5 % 06/24/2023 4:39 PM CDT [facility] ABSOLUTE NEUTROPHILS 6.8 1.7 - 7.0 thou/cu mm 06/24/2023 4:39 PM CDT [facility] ABSOLUTE LYMPHOCYTES 2.4 0.9 - 2.9 thou/cu mm 06/24/2023 4:39 PM CDT [facility] ABSOLUTE MONOCYTES 0.6 <0.9 thou/cu mm 06/24/2023 4:39 PM CDT [facility] ABSOLUTE EOSINOPHILS 0.4 <0.5 thou/cu mm 06/24/2023 4:39 PM CDT [facility] ABSOLUTE BASOPHILS 0.1 <0.3 thou/cu mm 06/24/2023 4:39 PM CDT [facility] Blood BLOOD SPECIMEN / Unknown Venipuncture / Unknown 06/24/2023 4:30 PM CDT 06/24/2023 4:35 PM CDT Una Franks NP HEMATOLOGY [facility] [address] [place] [address] * RH(D) TYPE (06/24/2023 4:30 PM CDT) RH(D) TYPE Positive 06/24/2023 4:54 PM CDT [facility] BLOOD BANK Blood BLOOD SPECIMEN / Unknown Venipuncture / Unknown 06/24/2023 4:30 PM CDT 06/24/2023 4:35 PM CDT Una Franks NP BLOOD BANK [facility] BLOOD BANK [address] [place] [address] * HCG BETA QUANT, (06/24/2023 4:30 PM CDT) Pathologist [facility] HCG BETA QUANT,PREGNANC Y 46,241 mIU/mL 06/24/2023 5:28 PM CDT [facility] Blood BLOOD SPECIMEN / Unknown Venipuncture / Unknown 06/24/2023 4:30 PM CDT 06/24/2023 4:[address] [facility] - 06/24/2023 5:28 PM CDT [...] prior to retesting. Una Franks NP CHEMISTRY [facility] [address] [place] [id number] * BASIC METABOLIC PANEL (06/24/2023 4:30 PM CDT) Pathologist [facility] SODIUM 137 136 - 145 mmol/L 06/24/2023 4:56 PM CDT [facility] POTASSIUM 3.9 3.5 - 5.1 mmol/L 06/24/2023 4:56 PM [facility] CHLORIDE 102 98 - 107 mmol/L 06/24/2023 4:56 PM [facility] CO2,TOTAL 24 22 - 29 mmol/L 06/24/2023 4:56 PM [facility] ANION GAP 11 5 - 18 06/24/2023 4:56 PM [facility] GLUCOSE 76 70 - 99 mg/dL 06/24/2023 4:56 PM [facility] CALCIUM 10.0 8.6 - 10.0 mg/dL 06/24/2023 4:56 PM [facility] BUN 8 6 - 20 mg/dL 06/24/2023 4:56 PM [facility] CREATININE 0.66 0.50 - 0.90 mg/dL 06/24/2023 4:56 PM [facility] BUN/CREAT RATIO 12 10 - 20 4:56 PM [facility] eGFR >90 >90 mL/min/1.7 3m2 06/24/2023 4:56 PM [facility] Comment:As of 2021, eG FR [...] 4:35 PM CDT Una Franks NP CHEMISTRY [facility] [address] [place] [address] * (ABNORMAL) UA W/ SEDIMENT EXAM REFLEXED PER CRITERIA (06/24/2023 4:01 PM CDT) COLOR Yellow Yellow Color 06/24/2023 4:14 PM T [facility] CLARITY Clear Clear Clarity 06/24/2023 4:14 PM [facility] SPECIFIC GRAVITY,URINE <=1.005(A) 1.010, 1.015, 1.020, 1.025 06/24/2023 4:14 PM [facility] PH,URINE 6.0 6.0, 7.0, 8.0, 5.5, 6.5, 7.5, 8.5 06/24/2023 4:14 PM [facility] UROBILINOGEN, QUALITATIVE Normal Normal EU/dl 06/24/2023 4:14 PM T [facility] PROTEIN, URINE Negative Negative mg/dL 06/24/2023 4:14 PM [facility] GLUCOSE, URINE Negative Negative mg/dL 06/24/2023 4:14 PM [facility] KETONES,URINE Negative Negative mg/dL 06/24/2023 4:14 PM T [facility] BILIRUBIN,URI NE Negative Negative 06/24/2023 4:14 PM [facility] OCCULT BLOOD,URINE Negative Negative 06/24/2023 4:14 PM [facility] NITRITE Negative Negative 06/24/2023 4:14 PM [facility] LEUKOCYTE ESTERASE Negative Negative 06/24/2023 4:14 PM [facility] Urine URINE SPECIMEN / Unknown Non-Blood / Unknown 06/24/2023 4:01 PM CDT 06/24/2023 4:07 PM CDT Una Franks NP URINE Performing Organization Address [facility]/State/[facility] Co de Phone Number [facility] [address] [place] [address] * (ABNORMAL) URINE (06/24/2023 4:01 PM CDT) ,URIN E Positive(P ositive) Negative 06/24/2023 4:14 PM T [facility] Comment:Is Rh typing necessa ry? Urine URINE SPECIMEN / Unknown Non-Blood / Unknown 06/24/2023 4:01 PM CDT 06/24/2023 4:07 PM CDT Una Franks CHECK AND TRANSFER BEADER URINE [facility] [address] [place] [address] from Last 3 Months Care Teams Certified Nurses' Aide Relationship Specialty Start Date End Date None . PCP - General 06/23/23
== END 2023-08-21 09:58 | disposition home or self-care (01) ==
LOC: NFLDREF 09-03 11:17
PROVIDERS: Visit Provider Obstetrics & Gynecology
DX: R74.01 Elevation of levels of liver transaminase levels (principal)
CPT/HCPCS: 80074; 80076

== ENCOUNTER 2023-09-12 11:32 | Outpatient (CLI) | payer OTHER, SELFPAY ==
--- OUTSIDE RECORDS SUMMARY | 2023-09-12 11:35 | XMS_ITS | Referral Summary ---
Author Organization [facility] Address [address] 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 (Primary Dx) 08/29/2023 1:19 PM CDT - 08/29/2023 11:59 PM CDT Hospital Encounter [facility] [address] [place] [phone] Mica Aguilar MD Rauk, Case Seals MD 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 Discharge Disposition: Home or Self Care 08/25/2023 Telephone [facility] [address] [place] [address] Nelsy Diaz GC Results (Expanded Carrier Screening with her partner) 08/14/2023 Telephone [facility] [address] [place] [address] Nelsy Diaz GC Results (Low Risk NIPT ) 08/08/2023 12:30 PM CDT Lab [facility] [address] [place] [phone] Mica Aguilar MD screening encounter; Encounter of female for testing for genetic disease carrier status for procreative management 08/08/2023 Travel 08/08/2023 9:58 AM CDT - 08/08/2023 11:59 PM CDT Hospital Encounter [facility] [address] [facility] [address] [place] [address] Mica Aguilar MD 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 Discharge Disposition: Home or Self Care 08/08/2023 10:15 AM CDT Office Visit [facility] [address] [facility] [address] [place] [phone] Mica Aguilar MD Daykin, Emily C, GC screening encounter (Primary Dx); 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; Encounter of female for testing for genetic disease carrier status for procreative management 08/08/2023 11:45 AM CDT Office Visit [facility] [address] [facility] [address] [place] [address] Mica Aguilar MD 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 (Primary Dx) 08/01/2023 PRE VISIT [facility] [address] [facility] [address] [place] [address] Karie Barrow RN Genetic Counseling (Corson/di twins, screening); Ultrasound (NT); Consult (Corson/di twins) 07/22/2023 Orders Only [facility] [address] [place] [address] Ashley Hassan RN 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 (Primary Dx) 07/22/2023 Transcribe Orders [facility] [place] [address] [place] [address] Raya Carson CNM related condition, antepartum (Primary Dx) 07/18/2023 Medical Correspondence [facility] [address] [place] [phone] Scan, Non-Provider from Last 3 Months [...] Care Team (Late st Contact Info) Description 09/12/2023 2:15 PM CDT Appointment [facility] [address] [place] [address] Angelica Wright MD [address] [place] [address] 09/12/2023 2:15 PM CDT Office Visit [facility] [employer] [facility] [address] [place] [address] 09/12/2023 2:45 PM CDT Office Visit [facility] [address] [place] [address] Angelica Wright MD [address] [place] [address] 09/26/2023 1:30 PM CDT Appointment [facility] [address] [place] [phone] Mica Aguilar MD [address] [place] [address] Angelica Wright MD [address] [place] [address] 09/26/2023 2:45 PM CDT Office Visit [facility] [address] [facility] [address] [place] [phone] Mica Aguilar MD [address] [place], [place] [address] Angelica Wright MD [address] [place], [place] [address] 10/10/2023 12:00 PM CDT Appointment [facility] [address] [place] [phone] Mica Aguilar MD [address] [place] [address] 10/10/2023 1:00 PM CDT Appointment [facility] [address] [place] [phone] Mica Aguilar MD [address] [place] [address] 10/10/2023 2:15 PM CDT Appointment [facility] [place] [address] [place] [address] Mica Aguilar MD [address] [place], [place] [address] 10/10/2023 2:45 PM CDT Office Visit [facility] [place] [address] [place], [place] [address] Mica Aguilar MD [address] [place], [place] [address] Procedures Procedure Name Priority Date/Time Associated Diagnosis [...] Narrative 08/29/2023 3:02 PM CDT ? / Trim ----- Pat. Name: KYARA MISHRA ? Study Date: ??08/29/2023 1:33pm Pat. NO: ??[id number] ?Referring ??: RAYA CARSON Site: ? Classroom Paraprofessional: Carmen Zurita RDMS : ??2000 ?Age: ?? [...] ?0 lb 5 ?oz EFW by ?Hadlock (INM-[id number]-FL) EFW discordance ?10.2 ?% Head / Face / Neck Biometry: CM ? 4.6 ? mm Nasal bone ? 4.1 ?mm Fetus 2: BIOMETRY ----- BPD ? 33.2 ?mm ? 16w 2d ?Hadmontana OFD ? 42.0 ?mm ? 15w 0d [...] ?0 lb 5 ?oz EFW by ?Hadlock ([id number]) EFW discordance ?10.2 ?% Head / Face [...] be visualized: Heart / Thorax ?3-vessel view. 6-phbnmo-qojkqvu view. Fetus 2: ANATOMY ----- The following structures appear normal: Head / Neck ? Cranium. Head size. Head shape. Lateral ventricles. Choroid plexus. Midline falx. Cavum septi pellucidi. Cerebellum. Cisterna magna. ? Parenchyma. Thalami. ? Neck. Nuchal fold. Face ? Lips. Profile. Nose. Maxilla. Mandible. Orbits. Lens. Heart / Thorax ?4-chamber view. RVOT view. LVOT view. 3-vessel view. 5-qhrdqq-ujgovrs view. Situs. Aortic arch view. Bicaval view. [...] The patient is scheduled to return to [facility] in 2 weeks to assess for [...] - 08/29/2023 / Trim ----- Pat. Name: ROLANDO BELLAKYARA MARX Study Date: 08/29/2023 1:33pm Pat. NO: [id number] Referring MD: RAYA CARSON Site: Classroom Paraprofessional: Carmen Zurita RDMS : 2000 Age: 22 ----- INDICATION ----- Monochorionic, Diamniotic Twin gestation METHOD ----- Transabdominal ultrasound examination. View: Sufficient. ----- Twin . Number of fetuses: 2. Dichorionic-diamniotic DATING ----- DateDetailsGest. age FERNANDO LMP 4Cycle: irregular cycle17 w + 3 d 02/03/2024 [...] EFW (lb,oz) 0 lb 5oz EFW by Hadlock([id number]-FL) EFW discordance 10.2% Head / Face / Neck Biometry: CM 4.6mm Nasal bone 4.1mm Fetus 2: BIOMETRY ----- BPD 33.2mm 16w 2dHadlock OFD 42.0mm 15w 0dNicolaides HC 120.9mm 16w 0dHadlock Cerebellum tr 16.2mm 16w 1dNicolaides Nuchal fold 2.2mm AC 101.3mm 16w 1d 40%Hadlock Femur 21.6mm 16w 3dHadlock Humerus 20.8mm 16w 1dJeanty Weight Calculation: EFW 151g 32%Hadlock EFW (lb,oz) 0 lb 5oz EFW by Hadlock([id number]) EFW discordance 10.2% Head / Face / [...] be visualized: Heart / Thorax 3-vessel view. 9-nfhnke-bpmltfkcycq. Fetus 2: ANATOMY ----- The following structures appear normal: Head / Neck Cranium. Head size. Head shape.Lateral ventricles. Choroid plexus. Midline falx. Cavum septi pellucidi.Cerebellum. Cisterna magna. Parenchyma. Thalami. Neck. Nuchal fold. Face Lips. Profile. Nose. Maxilla.Mandible. Orbits. Lens. Heart / Thorax 4-chamber view. RVOT view. LVOT view.3-vessel view. 8-jjrblq-rliunet view. Situs. Aortic arch view. Bicavalview. Ductal [...] The patient is scheduled to return to [facility] in 2 weeks to assess forTTTS/TAPS [...] evidence for TTTS/TAPS. Mica Aguilar MD IMG [facility] US ORDERABLE S * IPX Non-Invasive Screening???Prequel (08/08/2023 12:45 PM CDT) See Scanned Result [employer] NON-INVASIVE SCREENING PREQUEL-Scann ed 08/14/2023 11:49 AM CDT IM5 Blood STRUCTURE OF RIGHT UPPER LIMB / Unknown Venipuncture / Unknown 08/08/2023 12:45 PM CDT 08/08/2023 12:45 PM CDT Nelsy Diaz [facility] - BLOOD ORDERABL ES IM5 [address] [phone] * (ABNORMAL) Other Laboratory; [facility]; [facility] Expanded Carrier Screening (Laboratory Miscellaneous Order) (08/08/2023 12:45 PM CDT) See Scanned Result LABORATORY MISCELLANEOUS ORDER-Scanned(A) 08/20/2023 11:47 AM CDT MISCELLANEOUS TESTING Blood STRUCTURE OF RIGHT UPPER LIMB / Unknown Venipuncture / Unknown 08/08/2023 12:45 PM CDT 08/08/2023 12:45 PM CDT Nelsy Diaz [facility] - BLOOD ORDERABL ES MISCELLANEOUS TESTING * M Twins Nuchal Trans w/US (08/08/2023 11:54 AM [...] ? Study Date: ??08/08/2023 11:06am Pat. NO: ??[id number] ?Referring ??MD: RAYA CARSON Site: ??[facility] ? Classroom Paraprofessional: Christopher Street RDMS : ??2000 ?Age: ?? [...] MD - 08/08/2023 NT ----- Pat. Name: ROLANDO VILLEGASKYARA Study Date: 08/08/2023 11:06am Pat. NO: [id number] Referring MD: RAYA CARSON Site: [facility] Classroom Paraprofessional: Christopher Street RDMS : 2000 Age: 22 [...] ----- Thank-you for referring your patient for [facility] consult & ultrasoundassessment. We discussed the [...] appears normal for early gestational age. Mica Lauren MD [facility] ORDERABLE S from Last 3 Months Care Teams Pals Nurse Relationship Specialty Start Date End Date No Ref-Primary, Physician PCP - General 07/22/23 Mica Aguilar MD [address] [place] [address] Assigned OBGYN Provider 08/31/23
--- OUTSIDE RECORDS SUMMARY | 2023-09-12 11:35 | XMS_ITS | Clinical Summary ---
Author Organization [place] Address [address] 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 (Primary Dx) 08/29/2023 1:19 PM CDT - 08/29/2023 11:59 PM CDT Hospital Encounter [facility] Maternal Medicine [facility] [address] [place] [address] Mica Aguilar MD Rauk, Case Seals MD 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 Discharge Disposition: Home or Self Care 08/29/2023 Travel 08/25/2023 Telephone [facility] Maternal Medicine [facility] [address] [place] [address] Nelsy Diaz GC Results (Expanded Carrier Screening with her partner) 08/14/2023 Telephone [facility] Maternal Medicine [facility] [address] [place] [address] Nelsy Diaz GC Results (Low Risk NIPT ) 08/08/2023 12:30 PM CDT Lab [facility] [address] [place] [address] Mica Aguilar MD screening encounter; Encounter of female for testing for genetic disease carrier status for procreative management 08/08/2023 11:45 AM CDT Office Visit [facility] Medicine [facility] [address] [facility] [address] [place] [address] Mica Aguilar MD 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 (Primary Dx) 08/08/2023 10:15 AM CDT Office Visit [facility] [address] [facility] [address] [place] [phone] Mica Aguilar MD Daykin, Emily C, GC screening encounter (Primary Dx); 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; Encounter of female for testing for genetic disease carrier status for procreative management 08/08/2023 9:58 AM CDT - 08/08/2023 11:59 PM CDT Hospital Encounter [facility] [place] [address] [address] [facility] [address] [place] [phone] Mica Aguilar MD 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 Discharge Disposition: Home or Self Care 08/08/2023 Travel 08/01/2023 PRE VISIT [facility] Medicine [place] [address] [address] [facility] [address] [place] [phone] Karie Barrow RN Genetic Counseling (Sargent/di twins, screening); Ultrasound (NT); Consult (Sargent/di twins) 07/22/2023 Orders Only [facility] Maternal Medicine [facility] [address] [place] [address] Ashley Hassan RN 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 (Primary Dx) 07/22/2023 Transcribe Orders [facility] [place] [facility] [place] [address] [place] [address] Raya Carson CNM related condition, antepartum (Primary Dx) 07/18/2023 Medical Correspondence [facility] Info Mgmt [facility] [address] [place] [phone] Scan, Non-Provider from Last 3 Months [...] Info) Description 09/12/2023 2:15 PM CDT Appointment [facility] Maternal Medicine [facility] [address] [place] [address] Angelica Wright MD [address] [place] [address] 09/12/2023 2:15 PM CDT Office Visit [facility] [employer] [address] [place] [address] 09/12/2023 2:45 PM CDT Office Visit [facility] Maternal Medicine [facility] [address] [place] [address] Angelica Wright MD [address] [place] [address] 09/26/2023 1:30 PM CDT Appointment [facility] Maternal Medicine [facility] [address] [place] [phone] Mica Aguilar MD [address] [place] [address] Angelica Wright MD [address] [place] [address] 09/26/2023 2:45 PM CDT Office Visit [facility] Maternal Medicine [facility] [address] [facility] [address] [place] [phone] Mica Aguilar MD [address] [place], [place] [address] Angelica Wright MD [address] [place], [place] [address] 10/10/2023 12:00 PM CDT Appointment [facility] Heart Care [address] [place] [phone] Mica Aguilar MD [address] [place] [address] 10/10/2023 1:00 PM CDT Appointment [facility] Heart Care [address] [place] [address] [phone] Mica Aguilar MD [address] [place] [address] 10/10/2023 2:15 PM CDT Appointment [facility] Maternal Medicine Center [place] [address] [place] [address] Mica Aguilar MD [address] [facility] [address] [place], [place] [address] 10/10/2023 2:45 PM CDT Office Visit [facility] Maternal Medicine Center [place] [address] [place], [place] [address] Mica Aguilar MD [address] [facility] [address] [place], [place] [phone] Health Maintenance Due Date Last Done Comments [...] (once per calendar year) 2023 INFLUENZA VACCINE (#1) 2023 03/29/2014 RSV VACCINE ( & 60+ [...] ? Study Date: ??08/29/2023 1:33pm Pat. NO: ??[id number] ?Referring ??MD: RAYA CARSON Site: ? Composition Worker: Carmen Zurita RDMS : ??2000 ?Age: ?? [...] ?0 lb 5 ?oz EFW by ?Hadlock (LFN-EI-VD-FL) EFW discordance ?10.2 ?% Head / Face [...] ?0 lb 5 ?oz EFW by ?Hadlock (PTJ-ZV-ZL-FL) EFW discordance ?10.2 ?% Head / Face [...] be visualized: Heart / Thorax ?3-vessel view. 4-togrvk-ilqdbng view. Fetus 2: ANATOMY ----- The following structures appear normal: Head / Neck ? Cranium. Head size. Head shape. Lateral ventricles. Choroid plexus. Midline falx. Cavum septi pellucidi. Cerebellum. Cisterna magna. ? Parenchyma. Thalami. ? Neck. Nuchal fold. Face ? Lips. Profile. Nose. Maxilla. Mandible. Orbits. Lens. Heart / Thorax ?4-chamber view. RVOT view. LVOT view. 3-vessel view. 6-ixeplm-vmoemlv view. Situs. Aortic arch view. Bicaval view. [...] The patient is scheduled to return to [facility] in 2 weeks to assess for [...] Procedure Note Case Berrios MD - 08/29/2023 Trim ----- Pat. Name: KYARA MISHRA Study Date: 08/29/2023 1:33pm Pat. NO: [id number] Referring MD: RAYA CARSON Site: Composition Worker: Carmen Zurita RDMS : 2000 Age: 22 [...] EFW (lb,oz) 0 lb 5oz EFW by Hadlock(FVN-RU-QF-FL) EFW discordance 10.2% Head / Face / Neck Biometry: CM 4.6mm Nasal bone 4.1mm Fetus 2: BIOMETRY ----- BPD 33.2mm 16w 2dHadlock OFD 42.0mm 15w 0dNicolaides HC 120.9mm 16w 0dHadlock Cerebellum tr 16.2mm 16w 1dNicolaides Nuchal fold 2.2mm AC 101.3mm 16w 1d 40%Hadlock Femur 21.6mm 16w 3dHadlock Humerus 20.8mm 16w 1dJeanty Weight Calculation: EFW 151g 32%Hadlock EFW (lb,oz) 0 lb 5oz EFW by Hadlock(IWW-MK-ON-FL) EFW discordance 10.2% Head / Face / [...] be visualized: Heart / Thorax 3-vessel view. 8-ljnanh-bgtwvyrfpxo. Fetus 2: ANATOMY ----- The following structures appear normal: Head / Neck Cranium. Head size. Head shape.Lateral ventricles. Choroid plexus. Midline falx. Cavum septi pellucidi.Cerebellum. Cisterna magna. Parenchyma. Thalami. Neck. Nuchal fold. Face Lips. Profile. Nose. Maxilla.Mandible. Orbits. Lens. Heart / Thorax 4-chamber view. RVOT view. LVOT view.3-vessel view. 7-fgvrqp-zszblsz view. Situs. Aortic arch view. Bicavalview. Ductal [...] The patient is scheduled to return to [facility] in 2 weeks to assess forTTTS/TAPS [...] no evidence for TTTS/TAPS. Mica Aguilar MD [facility] US ORDERABLE S * [employer] Non-Invasive Screening???Prequel (08/08/2023 12:45 PM CDT) Pathologist [facility] See Scanned Result MYRIAD NON-INVASIVE SCREENING PREQUEL-Scann ed 08/14/2023 11:49 AM CDT [employer] Blood STRUCTURE OF RIGHT UPPER LIMB / Unknown Venipuncture / Unknown 08/08/2023 12:45 PM CDT 08/08/2023 12:45 PM CDT Nelsy Diaz Pixelated LAB - BLOOD ORDERABL ES Performing Organization Address City/[facility]/ZIP Co de Phone Number [employer] [address] [place] [address], [facility] [phone] * (ABNORMAL) Other Laboratory; [facility]; [employer] Expanded Carrier Screening (Laboratory Miscellaneous Order) (08/08/2023 12:45 PM CDT) See Scanned Result LABORATORY MISCELLANEOUS ORDER-Scanned(A) 08/20/2023 11:47 AM CDT MISCELLANEOUS TESTING Blood STRUCTURE OF RIGHT UPPER LIMB / Unknown Venipuncture / Unknown 08/08/2023 12:45 PM CDT 08/08/2023 12:45 PM CDT Nelsy Beverley Emily ANDERS LAB - BLOOD ORDERABL ES Performing Organization Address [facility] Co de Phone Number MISCELLANEOUS TESTING * [...] ? Study Date: ??08/08/2023 11:06am Pat. NO: ??[id number] ?Referring ??: RAYA CARSON Site: ??[place] ? Composition Worker: Christopher Street RDMS : ??2000 ?Age: ?? [...] MISHRA Study Date: 08/08/2023 11:06am Pat. NO: [id number] Referring MD: RAYA CARSON Site: [facility] Composition Worker: Christopher Street RDMS : 2000 Age: 22 [...] for early gestational age. Mica Aguilar MD G [facility] US ORDERABLE S from Last 3 Months Care Teams Aircraft Mechanic Structures Relationship Specialty Start Date End Date No Ref-Primary, Physician PCP - General 07/22/23 Mica Aguilar MD [address] [facility] [address] [place] [address] Assigned OBGYN Provider 08/31/23
--- OUTSIDE RECORDS SUMMARY | 2023-09-12 11:35 | XMS_ITS | Encounter Summary ---
Author Organization [place] Address [address] [place] [address]. [place] [address] Care Team Providers Care Line Helper Name Role Phone No Ref-Primary, Physician Primary [...] Info) Description 09/12/2023 2:15 PM CDT Appointment [facility] Maternal Medicine Center [place] [address] [facility] [address] [place] [address] Angelica Wright MD [address] [place], [place] [address] 09/12/2023 2:15 PM CDT Office Visit [facility] Public Service Director Services [facility] [place] [place] [address] 09/12/2023 2:45 PM CDT Office Visit [facility] Maternal Medicine [facility] [place] [address] [facility] [address] [place] [address] Angelica Wright MD [address] [place] [address] 09/26/2023 1:30 PM CDT Appointment [facility] Maternal Medicine [facility] [address] [place] [phone] Mica Aguilar MD [address] [place] [address] Angelica Wright MD [address] [place] [address] 09/26/2023 2:45 PM CDT Office Visit [facility] Maternal Medicine [place] [address] [address] [facility] [address] [place] [phone] Mica Aguilar MD [address] [place] [address] Angelica Wright MD [address] [place] [address] 745684 10/10/2023 12:00 PM CDT Appointment [facility] Heart Care [address] [place] [address] [phone] Mica Aguilar MD [address] [place] [address] 10/10/2023 1:00 PM CDT Appointment [facility] Heart Care [address] [place] [address] [phone] Mica Aguilar MD [address] [place] [address] 10/10/2023 2:15 PM CDT Appointment [facility] Maternal Medicine Center [place] [address] [place] [address] Mica Aguilar MD [address] [place], [place] [address] 10/10/2023 2:45 PM CDT Office Visit [facility] Maternal Medicine [facility] [address] [place] [address] Mica Aguilar MD [address] [facility] [address] [place], [place] [address] documented as of this encounter Visit Diagnoses Not on filedocumented in this encounter Care Teams Line Helper Relationship Specialty Start Date End Date No Ref-Primary, Physician PCP - General 07/22/23 documented as of this encounter
--- OUTSIDE RECORDS SUMMARY | 2023-09-12 11:35 | XMS_ITS | Encounter Summary ---
Author Organization [place] Address [address] [facility] [place] [address] Care Team Providers Care Girls Swimming Coach Name Role Phone No Ref-Primary, Physician Primary Care Provider Encounter Details Date Type Department Care Team (Late st Contact Info) Description 08/08/2023 12:30 PM CDT Lab [facility] [address] [place] [address] Mica Aguilar MD [address] [place] [address] screening encounter; Encounter of female [...] Info) Description 09/12/2023 2:15 PM CDT Appointment [facility] [place] [address] [place] [phone] Angelica Wright MD [address] [place] [address] 09/12/2023 2:15 PM CDT Office Visit [facility] Medical Assistant Services [address] [place] [address] [phone] 09/12/2023 2:45 PM CDT Office Visit [facility] Maternal Medicine [place] [address] [place] [phone] Angelica Wright MD [address] [place], [place] [address] 09/26/2023 1:30 PM CDT Appointment [facility] Maternal Medicine [place] [address] [place] [phone] Mica Aguilar MD [address] [place] [address] Angelica Wright MD [address] [place], [place] [address] 09/26/2023 2:45 PM CDT Office Visit [facility] Maternal Medicine [place] [address] [place] [phone] Mica Aguilar MD [address] [place], [place] [address] Angelica Wright MD [address] [place], [place] [address] 10/10/2023 12:[address] [facility] Heart Care [address] [place] [phone] Mica Aguilar MD [address] [place], [place] [address] 10/10/2023 1:[address] [facility] [address] [place] [phone] Mica Aguilar MD [address] [address] 10/10/2023 2:15 PM CDT Appointment [facility] Maternal Medicine Center [place] [address] [place] [phone] Mica Aguilar MD [address] [facility] [address] [address] 9[address] 10/10/2023 2:45 PM CDT Office Visit [facility] M[facility] Medicine [facility] [place] [address] [place], [place] [address] Mica Aguilar MD [address] [facility] [address] [address] documented as of this encounter Procedures Procedure Name Priority Date/Time Associated Diagnosis Comments MYRIAD NON-INVASIVE SCREENING PREQUEL Routine 08/08/2023 12:45 PM CDT screening encounter LABORATORY MISCELLANEOUS ORDER Routine 08/08/2023 12:45 PM CDT Encounter of female for testing for genetic disease carrier status for procreative management documented in this encounter Results * (ABNORMAL) Other Laboratory; [facility]; [employer] Expanded Carrier Screening (Laboratory Miscellaneous Order) (08/08/2023 [...] SCREENING PREQUEL-Scann ed 08/14/2023 11:49 AM CDT [employer] [employer] [facility] Blood STRUCTURE OF RIGHT UPPER LIMB / Unknown Venipuncture / Unknown 08/08/2023 12:45 PM CDT 08/08/2023 12:45 PM CDT Nelsy Diaz GC LAB - BLOOD ORDERABL ES [facility] [address] [phone] documented in this encounter Visit Diagnoses Diagnosis screening encounter Unspecified screening Encounter of female for testing for genetic disease carrier status for procreative management Testing of female for genetic disease carrier status documented in this encounter Care Teams Girls Swimming Coach Relationship Specialty Start Date End Date No Ref-Primary, Physician PCP - General 07/22/23 documented as of this encounter
--- OUTSIDE RECORDS SUMMARY | 2023-09-12 11:35 | XMS_ITS | Encounter Summary ---
Author Organization [place] Address [address] [facility] [place] [address] Care Team Providers Care Client Experience Manager Name Role Phone No Ref-Primary, Physician Primary Care Provider Reason for Visit * Reason Comments Ultrasound 2/3 complete-mono/di twins Encounter Details Date Type Department Care Team (Latest Contact Info) Description 08/29/2023 2:00 PM CDT Office Visit [facility] Maternal Medicine Center [place] [address] [facility] [address] [place] [address] Mcia Aguilar MD [address] [place] [address] Case Berrios MD [address] [place] [address] Monochorionic diamniotic twin gestation in [...] for details of today's US at the [facility]. Case Berrios MD Maternal- Medicine documented in this encounter Plan of Treatment Upcoming Encounters Date Type Department Care Team (Late st Contact Info) Description 09/12/2023 2:15 PM CDT Appointment [facility] [place] [address] [facility] [address] [place] [phone] Angelica Wright MD [address] [place] [address] 09/12/2023 2:15 PM CDT Office Visit [facility] Electrical Assembly Supervisor Services [address] [place] [phone] 09/12/2023 2:45 PM CDT Office Visit [facility] [place] [address] [address] [facility] [address] [place] [phone] Angelica Wright MD [address] [place], [place] [phone] 09/26/2023 1:30 PM CDT Appointment [facility] [place] [address] [place] [phone] Mica Aguilar MD [address] [place], [place] [address] Angelica Wright MD [address] [place], [place] [address] 09/26/2023 2:45 PM CDT Office Visit [facility] Maternal Medicine [place] [address] [place] [address] [phone] Mica Aguilar MD [address] [address] Angelica Wright MD [address] [place] [address] 8[address]84 10/10/2023 12:00 PM CDT Appointment [facility] Heart Care [address] [place] [address] [phone] Mica Aguilar MD [address] [place] [address] 10/10/2023 1:00 PM CDT Appointment [facility] Heart Care [address] [place] [address] [phone] Mica Aguilar MD [address] [place] [address] 820384 10/10/2023 2:15 PM CDT Appointment [facility] Maternal Medicine Center [place] [address] [place] [phone] Mica Aguilar MD [address] [place] [address] 10/10/2023 2:45 PM CDT Office Visit [facility] Maternal Medicine Center [place] [address] [place] [address] Mica Aguialr MD [address] [place] [address] [phone] documented as of this encounter Visit Diagnoses Diagnosis 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- Primary documented in this encounter Care Teams Client Experience Manager Relationship Specialty Start Date End Date No Ref-Primary, Physician PCP - General 07/22/23 documented as of this encounter
--- OUTSIDE RECORDS SUMMARY | 2023-09-12 11:35 | XMS_ITS | Encounter Summary ---
Author Organization [place] Address [address] [place] [address]. [place] [address] Care Team Providers Care Realty Loan Specialist Name Role Phone No Ref-Primary, Physician [...] Info) Description 09/12/2023 2:15 PM CDT Appointment [facility] Maternal Medicine Center [place] [address] [place] [address] Angelica Wright MD [address] [place], [place] [address] 09/12/2023 2:15 PM CDT Office Visit [facility] Garage Laborer Services [facility] [place] [address] 09/12/2023 2:45 PM CDT Office Visit [facility] Maternal Medicine Center [place] [address] [place] [address] Angelica Wright MD [address] [place] [address] 09/26/2023 1:30 PM CDT Appointment [facility] Maternal Medicine [facility] [address] [place] [phone] Mica Aguilar MD [address] [place] [address] Angelica Wright MD [address] [place] [address] 09/26/2023 2:45 PM CDT Office Visit [facility] Maternal Medicine [place] [address] [place] [phone] Mica Aguilar MD [address] [place] [address] Angelica Wright MD [address] [place] [address] 786844 10/10/2023 12:[address] [facility] Heart Care [address] [place] [address] [phone] Mica Aguilar MD [address] [place] [address] 10/10/2023 1:[address] [facility] Heart Care [address] [place] [address] [phone] Mica Aguilar MD [address] [place] [address] 10/10/2023 2:15 PM CDT Appointment [facility] Maternal Medicine Center [place] [address] [place] [address] Mica Aguilar MD [address] [place], [place] [address] 10/10/2023 2:45 PM CDT Office Visit [facility] Maternal Medicine [facility] [address] [place] [address] Mica Aguilar MD [address] [facility] [address] [place], [place] [address] documented as of this encounter Visit Diagnoses Not on filedocumented in this encounter Care Teams Realty Loan Specialist Relationship Specialty Start Date End Date No Ref-Primary, Physician PCP - General 07/22/23 documented as of this encounter
--- OUTSIDE RECORDS SUMMARY | 2023-09-12 11:35 | XMS_ITS | Encounter Summary ---
Author Organization [place] Address [address] [facility] [place] [address] Care Team Providers Care Analytical Chemist Name Role Phone No Ref-Primary, Physician Primary Care Provider Reason for Referral * Diagnostic Imaging Ultrasound (Routine) - Pending Review Specialty Diagnoses / Procedures Referred By Contac t Referred To Contact Radiology. 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 Procedures MFM Twins US OB Complete 2/3 Tri Mica Aguilar MD [address] [place] [address] Referral ID Status Reason Start Date Expiration Date V isits Requested Visits Authorized [id number] Pending Review 08/08/2023 08/07/2024 1 1 Reason for Visit * Diagnostic Imaging Ultrasound (Routine) - Pending Review Specialty Diagnoses / Procedures Referred By Contac t Referred To Contact Radiology. 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 Procedures MFM Twins US OB Complete 2/3 Tri Mica Aguilar MD [address] [place] [address] Referral ID Status Reason Start Date Expiration Date V isits Requested Visits Authorized [id number] Pending Review 08/08/2023 08/07/2024 1 1 Encounter Details Date Type Department Care Team (Latest Contact Info) Description 08/29/2023 1:19 PM CDT - 08/29/2023 11:59 PM CDT Hospital Encounter [facility] Maternal Medicine [place] [address] [place] [phone] Mica Aguilar MD [address] [place], [place] [phone] Case Berrios MD [address] [place], [place] [phone] 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 [...] Info) Description 09/12/2023 2:15 PM CDT Appointment [facility] Maternal Medicine [place] [address] [place] [phone] Angelica Wright MD [address] [place], [place] [address] 09/12/2023 2:15 PM CDT Office Visit [facility] Senior Executive Assistant Services [address] [place] [phone] 09/12/2023 2:45 PM CDT Office Visit [facility] Maternal Medicine [place] [address] [place] [phone] Angelica Wright MD [address] [place], [place] [address] 09/26/2023 1:30 PM CDT Appointment [facility] M[facility] Medicine Center [place] [address] [place] [phone] Mica Aguilar MD [address] [place], [place] [address] Angelica Wright MD [address] [place] [address] 09/26/2023 2:45 PM CDT Office Visit [facility] Maternal Medicine [facility] [address] [place] [phone] Mica Aguilar MD [address] [place] [address] [phone] Angelica Wright MD [address] [place] [address] [phone] 10/10/2023 12:00 PM CDT Appointment [facility] [address] [place] [address] [phone] Mica Aguilar MD [address] 8[address] 10/10/2023 1:00 PM CDT Appointment [facility] [address] [place] [address] [phone] Mica Aguilar MD [address] [place] [address] [phone] 10/10/2023 2:15 PM CDT Appointment [facility] M[facility] Medicine [facility] [place] [address] [place] [phone] Mica Aguilar MD [address] [address]39[address] 10/10/2023 2:45 PM CDT Office Visit [facility] Maternal Medicine [facility] [address] [place], [place] [phone] Mica Aguilar MD [address] [place], [place] [phone] documented as of this encounter Procedures Procedure [...] CDT ? / Trim ----- Pat. Name: KRISTYN MISHRA ? Study Date: ??08/29/2023 1:33pm Pat. NO: ??[id number] ?Referring ??MD: RAYA SHAH Site: ? Hand Miter Operator: Carmen Zurita RDMS : ??2000 ?Age: [...] ?0 lb 5 ?oz EFW by ?Hadlock (MGC-RC-DC-FL) EFW discordance ?10.2 ?% Head / Face [...] ?0 lb 5 ?oz EFW by ?Hadlock (YAL-IE-KA-FL) EFW discordance ?10.2 ?% Head / Face [...] be visualized: Heart / Thorax ?3-vessel view. 4-pmgfuv-uynrpve view. Fetus 2: ANATOMY ----- The following structures appear normal: Head / Neck ? Cranium. Head size. Head shape. Lateral ventricles. Choroid plexus. Midline falx. Cavum septi pellucidi. Cerebellum. Cisterna magna. ? Parenchyma. Thalami. ? Neck. Nuchal fold. Face ? Lips. Profile. Nose. Maxilla. Mandible. Orbits. Lens. Heart / Thorax ?4-chamber view. RVOT view. LVOT view. 3-vessel view. 9-pnbjvo-lbycbuo view. Situs. Aortic arch view. Bicaval view. [...] The patient is scheduled to return to [facility] in 2 weeks to assess for TTTS/TAPS [...] MD - 08/29/2023 Trim ----- Pat. Name: KRISTYN MISHRA Study Date: 08/29/2023 1:33pm Pat. NO: [id number] Referring MD: RAYA SHAH Site: Hand Miter Operator: Carmen Zurita RDMS : 2000 Age: [...] EFW (lb,oz) 0 lb 5oz EFW by Hadlock(XTR-WH-ZF-FL) EFW discordance 10.2% Head / Face / Neck Biometry: CM 4.6mm Nasal bone 4.1mm Fetus 2: BIOMETRY ----- BPD 33.2mm 16w 2dHadlock OFD 42.0mm 15w 0dNicolaides HC 120.9mm 16w 0dHadlock Cerebellum tr 16.2mm 16w 1dNicolaides Nuchal fold 2.2mm AC 101.3mm 16w 1d 40%Hadlock Femur 21.6mm 16w 3dHadlock Humerus 20.8mm 16w 1dJeanty Weight Calculation: EFW 151g 32%Hadlock EFW (lb,oz) 0 lb 5oz EFW by Hadlock(MBV-CQ-OJ-FL) EFW discordance 10.2% Head / Face / [...] be visualized: Heart / Thorax 3-vessel view. 3-gjodqk-jsxywblghkk. Fetus 2: ANATOMY ----- The following structures appear normal: Head / Neck Cranium. Head size. Head shape.Lateral ventricles. Choroid plexus. Midline falx. Cavum septi pellucidi.Cerebellum. Cisterna magna. Parenchyma. Thalami. Neck. Nuchal fold. Face Lips. Profile. Nose. Maxilla.Mandible. Orbits. Lens. Heart / Thorax 4-chamber view. RVOT view. LVOT view.3-vessel view. 5-zarjls-lgiclwk view. Situs. Aortic arch view. Bicavalview. Ductal [...] The patient is scheduled to return to [facility] in 2 weeks to assess forTTTS/TAPS and [...] evidence for TTTS/TAPS. Mica Aguilar MD [facility] US ORDERABLE S documented in this encounter Visit Diagnoses Diagnosis 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 documented in this encounter Care Teams Analytical Chemist Relationship Specialty Start Date End Date No Ref-Primary, Physician PCP - General 07/22/23 documented as of this encounter
--- OUTSIDE RECORDS SUMMARY | 2023-09-12 11:35 | XMS_ITS | Encounter Summary ---
Author Organization [place] Address [address] [facility] [address] Care Team Providers Care Ip Litigation Associate Name Role Phone No Ref-Primary, Physician Primary Care Provider Reason for Visit * Reason Comments Genetic Counseling * Consultation (Routine: Next available opening) - Pending Review Specialty Diagnoses / Procedures Referred By Contac t Referred To Contact 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 Mica Aguilar MD [address] [place] [address] Referral ID Status Reason Start Date Expiration Date V isits Requested Visits Authorized [id number] Pending Review 07/22/2023 07/21/2024 1 1 Encounter Details Date Type Department Care Team (Late st Contact Info) Description 08/08/2023 10:15 AM CDT Office Visit [facility] [place] [address] [facility] [address] [place] [address] Mica Aguilar MD [address] [facility] [address] [address] Nelsy Diaz GC [address] [facility] [address] [address] screening encounter (Primary Dx); Monochorionic [...] Nelsy Diaz, - 08/08/2023 10:15 AM CDT [facility] Medicine Center Genetic Counseling Consult Patient: Kyara Villegas Date of : 2000 Date of Service: 08/08/23 Kyara was seen at the [facility] for genetic consultation. The indication for genetic counseling is desire to discuss options for genetic screening and diagnostics. The patient was accompanied to this visit by her spouse, Ranjit. The session was conducted with a Georgian ipad companion caregiver ([place] companion caregiver [email or web address]) due to the patient speaking limited French. IMPRESSION/ PLAN 1. Kyara has not had genetic screening in this but elected to have screening today. 2. During today's [facility] visit, Kyara had a blood draw for non-invasive testing (also called NIPT, NIPS, or cell-free DNA) through [employer] ([employer]). This NIPT screens for trisomy 21, 18, [...] information communicated to Kyara's mother, Virginia Villegas ([phone]). Kyara wasinformed that results, including sex, will be available in [facility]. 3. Since the patient chose aneuploidy screening via NIPT, quad screen is NOT recommended in the second trimester. If the patient desires screening for open neural tube defects, maternal serum AFP only is recommended, ideally between 16- 18 weeks gestation. 4. Kyara and Ranjit elected to pursue expanded carrier screening for 574 conditions through [facility]. Results are expected within 2-3 weeks, and will be available in [facility]. We will contact the couple to [...] individuals (generally male) being most severely affected. [place] screening was reviewed. About [place] Screening The patient does NOT have a [...] The screening will include 574 conditions through teextee. See below for the more detailed information [...] abnormal result. Less validation data is available [facility] and some insurance plans will not cover this screening in twin pregnancies. Additionally, NIPT for twin pregnancies does not allow for assessment of all sex chromosome differences. NIPT run on a SNP platform (Cnekt) can screen for monosomy X if the [...] for a further conversation about NIPT through [facility] It In Person versus [facility]. Kyara has not had genetic screening in [...] (NIPT) We reviewed options for NIPT through [employer] versus teextee in the context of a twin gestation: NIPT run on a SNP platform (Panorama through Do It In Person) will determine zygosity. It will screen for trisomy 21, trisomy 18, trisomy 13, and triploidy in all twin pregnancies. For monozygotic and dizygotic twins, it can provide the predicted sexes For monozygotic twins only, it can screen for sex chromosome differences (monosomy X and trisomies)and 22q11.2 deletion syndrome. SNP-based NIPT platform has an estimated 10% failure rate for twins NIPT through MPS platform (Mintquel through [facility]See) can only screen for trisomy 21, trisomy 18, and trisomy 13 in twin pregnancies. It can also predict the sex for each twin ([facility]See). [employer]'s platform has an estimated 0.1% failure rate for twins (same as the standard Prequel failure rate). Kyara and Ranjit elected Emer[employer]/[employer]. We discussed the following ultrasound options: Nuchal translucency (NT) ultrasound Ultrasound between 37d7h-40i5h that includes nuchal translucency measurement and nasal [...] pleasure to be involved with Kyara???s wayne. Mdaf-cz-qcpu time of the meeting was 60 minutes. Nelsy Diaz MS, [facility] Office: [phone] [facility]: [phone] [facility] documented in this encounter Plan of Treatment Upcoming Encounters Date Type Department Care Team (Late st Contact Info) Description 09/12/2023 2:15 PM CDT Appointment [facility] M[facility] Medicine [place] [address] [place] [address] Angelica Wright MD [address] [place] [address] 09/12/2023 2:15 PM CDT Office Visit [facility] Services [address] [place] [phone] 09/12/2023 2:45 PM CDT Office Visit [facility] [place] [address] [place] [address] Angelica Wright MD [address] [place] [address] 09/26/2023 1:30 PM CDT Appointment [facility] [place] [address] [place] [address] Mica Aguilar MD [address] [place] [address] Angelica Wright MD [address] [place] [address] 09/26/2023 2:45 PM CDT Office Visit [facility] [place] [address] [place] [address] Mica Aguilar MD [address] [place], [place] [address] Angelica Wright MD [address] [place] [address] 10/10/2023 12:00 PM CDT Appointment [facility] [place] [phone] Mica Aguilar MD [address] [place] [address] 10/10/2023 1:00 PM CDT Appointment [facility] [place] [phone] Mica Aguilar MD [address] [place] [address] 722264 10/10/2023 2:15 PM CDT Appointment [facility] [place] [address] [place] [address] [phone] Mica Aguilar MD [address] [place] [address] [phone] 10/10/2023 2:45 PM CDT Office Visit [facility] [place] [address] [place] [address] [phone] Mica Aguilar MD [address] [place] [phone] documented as of this encounter Results * (ABNORMAL) Other Laboratory; [facility]; [facility] Expanded Carrier Screening (Laboratory Miscellaneous Order) (08/08/2023 12:45 PM CDT) See Scanned Result LABORATORY MISCELLANEOUS ORDER-Scanned(A) 08/20/2023 11:47 AM CDT MISCELLANEOUS TESTING Blood STRUCTURE OF RIGHT UPPER LIMB / Unknown Venipuncture / Unknown 08/08/2023 12:45 PM CDT 08/08/2023 12:45 PM CDT Nelsy C Emily [facility] - BLOOD ORDERABL ES MISCELLANEOUS TESTING * [facility] Non-Invasive Screening???Prequel (08/08/2023 12:45 PM CDT) See Scanned Result [facility] NON-INVASIVE SCREENING PREQUEL-Scann ed 08/14/2023 11:49 AM CDT [facility] Blood STRUCTURE OF RIGHT UPPER LIMB / Unknown Venipuncture / Unknown 08/08/2023 12:45 PM CDT 08/08/2023 12:45 PM CDT Nelsy Lowery Emily [facility] - BLOOD ORDERABL ES [facility] [address] [phone] documented in this encounter Visit Diagnoses Diagnosis screening encounter- Primary Unspecified screening 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 Encounter of female for testing for genetic disease carrier status for procreative management Testing of female for genetic disease carrier status documented in this encounter Care Teams Ip Litigation Associate Relationship Specialty Start Date End Date No Ref-Primary, Physician PCP - General 07/22/23 documented as of this encounter
--- OUTSIDE RECORDS SUMMARY | 2023-09-12 11:35 | XMS_ITS | Encounter Summary ---
Author Organization [place] Address [facility] [place] [address] Care Team Providers Care Orchid Transplanter Name Role Phone No Ref-Primary, Physician Primary Care Provider Reason for Referral * Diagnostic Imaging Ultrasound (Routine) - Pending Review Specialty Diagnoses / Procedures Referred By Contac t Referred To Contact Radiology. 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 Procedures MFM Twins US Comprehensive F/U Mica Aguilar MD [address] [place] [address] Referral ID Status Reason Start Date Expiration Date V isits Requested Visits Authorized [id number] Pending Review 08/08/2023 08/07/2024 1 1 * (Routine) - Pending Review Specialty Diagnoses / Procedures Referred By Contac t Referred To Contact 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 Procedures Echo (TTE) Complete Mica Aguilar MD [address] [place] [address] Referral ID Status Reason Start Date Expiration Date V isits Requested Visits Authorized [id number] Pending Review 08/08/2023 08/07/2024 1 1 * (Routine) - Pending Review Specialty Diagnoses / Procedures Referred By Contac t Referred To Contact 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 Procedures Echo (TTE) Complete Mica Aguilar MD [address] [place] [address] Referral ID Status Reason Start Date Expiration Date V isits Requested Visits Authorized [id number] Pending Review 08/08/2023 08/07/2024 1 1 * Diagnostic Imaging Ultrasound (Routine) - Pending Review Specialty Diagnoses / Procedures Referred By Contac t Referred To Contact Radiology. 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 Procedures MFM Twins US Comprehensive Mica Aguilar MD [address] [place] [address] Referral ID Status Reason Start Date Expiration Date V isits Requested Visits Authorized [id number] Pending Review 08/08/2023 08/07/2024 1 1 * Diagnostic Imaging Ultrasound (Routine) - Pending Review Specialty Diagnoses / Procedures Referred By Contac t Referred To Contact Radiology. 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 Procedures MFM Twins US Comprehensive F/U Mica Aguilar MD [address] [place] [address] Referral ID Status Reason Start Date Expiration Date V isits Requested Visits Authorized [id number] Pending Review 08/08/2023 08/07/2024 1 1 * Diagnostic Imaging Ultrasound (Routine) - Pending Review Specialty Diagnoses / Procedures Referred By Contac t Referred To Contact Radiology. 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 Procedures MFM Twins US OB Complete 2/3 Tri Mica Aguilar MD [address] [place] [address] Referral ID Status Reason Start Date Expiration Date V isits Requested Visits Authorized [id number] Pending Review 08/08/2023 08/07/2024 1 1 Reason for Visit * Reason Comments Ultrasound NT-mono/di twins, sc reening Genetic Counseling Twins, screening Consult [place]/di twins * Consultation (Routine: Next available opening) - Pending Review Specialty Diagnoses / Procedures Referred By Tami peoples Referred To Contact 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 Mica Aguilar MD [address] [place] [address] Referral ID Status Reason Start Date Expiration Date V isits Requested Visits Authorized [id number] Pending Review 07/22/2023 07/21/2024 1 1 Encounter Details Date Type Department Care Team (Latest Contact Info) Description 08/08/2023 11:45 AM CDT Office Visit [facility] Maternal Medicine Center [place] [address] [facility] [address] [place] [address] Mica Augilar MD [address] [place] [address] Monochorionic diamniotic twin gestation in [...] 0 0 # Outcome Date GA Lbr Mani/2nd Weight Sex Type Anes PTL Lv 1 [...] unequal placental sharing, which can result in Cglf-rs-Vius transfusion Syndrome (TTTS), Twin Anemia-Polycythemia Sequence (TAPS), [...] already taking this - Referral to a senior clinical project manager: Goal diet for twin pregnancies is 3500 [...] to contact me. Sincerely, Mica Aguilar MD Nut Sorter Operator, [employer] Maternal- Medicine I spent a total of [...] Dr. Aguilar into see patient. Please see M consult note for recommendations. Patient was discharged ambulatory and stable. lather apprentice used for [facility] visit via IPAD, ID#[id number]. documented in this encounter Plan of Treatment Upcoming Encounters Date Type Department Care Team (Late st Contact Info) Description 09/12/2023 2:15 PM CDT Appointment [facility] Maternal Medicine Center [place] [address] [place] [address] Angelica Wright MD [address] [place] [address] 09/12/2023 2:15 PM CDT Office Visit [facility] Admin Prog Coord Services [address] [place] [phone] 09/12/2023 2:45 PM CDT Office Visit [facility] Maternal Medicine [place] [address] [place] [phone] Angelica Wright MD [address] [place] [address] 09/26/2023 1:30 PM CDT Appointment [facility] Maternal Medicine [place] [address] [place] [address] Mica Aguilar MD [address] [place], [place] [address] Angelica Wright MD [address] [place] [address] 09/26/2023 2:45 PM CDT Office Visit [facility] Maternal Medicine [place] [address] [facility] [facility] [address] [place] [address] Mica Aguilar MD [address] [place], [place] [address] Angelica Wright MD [address] [place] [address] 10/10/2023 12:[address] [facility] [address] [place] [phone] Mica Aguilar MD [address] [phone] 10/10/2023 1:[address] [facility] [address] [place] [phone] Mica Aguilar MD [address] [place] [address] 764644 10/10/2023 2:15 PM CDT Appointment [facility] Maternal Medicine [facility] [place] [address] [place] [phone] Mica Aguilar MD [address] [facility] [address] [address] 10/10/2023 2:45 PM CDT Office Visit [facility] [place] [address] [place] [address] Mica Aguilar MD [address] [id number] Scheduled Orders Name Type Priority Associated Diagnoses [...] ? Study Date: ??08/29/2023 1:33pm Pat. NO: ??[id number] ?Referring ??MD: RAYA CARSON Site: ? Mobile Crane Operator: Carmen Zurita RDMS : ??2000 ?Age: [...] ?0 lb 5 ?oz EFW by ?Hadlock (AVK-JU-VR-FL) EFW discordance ?10.2 ?% Head / Face [...] ?0 lb 5 ?oz EFW by ?Hadlock (QKD-SH-ZV-FL) EFW discordance ?10.2 ?% Head / Face [...] be visualized: Heart / Thorax ?3-vessel view. 1-gapspx-equwosz view. Fetus 2: ANATOMY ----- The following structures appear normal: Head / Neck ? Cranium. Head size. Head shape. Lateral ventricles. Choroid plexus. Midline falx. Cavum septi pellucidi. Cerebellum. Cisterna magna. ? Parenchyma. Thalami. ? Neck. Nuchal fold. Face ? Lips. Profile. Nose. Maxilla. Mandible. Orbits. Lens. Heart / Thorax ?4-chamber view. RVOT view. LVOT view. 3-vessel view. 5-gykfuj-nrkdaxj view. Situs. Aortic arch view. Bicaval view. [...] The patient is scheduled to return to [facility] in 2 weeks to assess [...] MISHRA Study Date: 08/29/2023 1:33pm Pat. NO: [id number] Referring MD: RAYA CARSON Site: Mobile Crane Operator: Carmen Zurita RDMS : 2000 Age: [...] EFW (lb,oz) 0 lb 5oz EFW by Hadlock(BQL-RM-TN-FL) EFW discordance 10.2% Head / Face / Neck Biometry: CM 4.6mm Nasal bone 4.1mm Fetus 2: BIOMETRY ----- BPD 33.2mm 16w 2dHadlock OFD 42.0mm 15w 0dNicolaides HC 120.9mm 16w 0dHadlock Cerebellum tr 16.2mm 16w 1dNicolaides Nuchal fold 2.2mm AC 101.3mm 16w 1d 40%Hadlock Femur 21.6mm 16w 3dHadlock Humerus 20.8mm 16w 1dJeanty Weight Calculation: EFW 151g 32%Hadlock EFW (lb,oz) 0 lb 5oz EFW by Hadlock(HOD-FE-AB-FL) EFW discordance 10.2% Head / Face / [...] be visualized: Heart / Thorax 3-vessel view. 4-rxewti-tvftgbdthug. Fetus 2: ANATOMY ----- The following structures appear normal: Head / Neck Cranium. Head size. Head shape.Lateral ventricles. Choroid plexus. Midline falx. Cavum septi pellucidi.Cerebellum. Cisterna magna. Parenchyma. Thalami. Neck. Nuchal fold. Face Lips. Profile. Nose. Maxilla.Mandible. Orbits. Lens. Heart / Thorax 4-chamber view. RVOT view. LVOT view.3-vessel view. 2-qjqfyd-qlfczzo view. Situs. Aortic arch view. Bicavalview. Ductal [...] The patient is scheduled to return to [facility] in 2 weeks to assess [...] no evidence for TTTS/TAPS. Mica Aguilar MD [facility] US ORDERABLE S documented in this encounter Visit Diagnoses Diagnosis 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- Primary 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 documented in this encounter Care Teams Orchid Transplanter Relationship Specialty Start Date End Date No Ref-Primary, Physician PCP - General 07/22/23 documented as of this encounter
--- OUTSIDE RECORDS SUMMARY | 2023-09-12 11:35 | XMS_ITS | Encounter Summary ---
Author Organization [place] Address [address] [place] [address]. [place] [address] Care Team Providers Care Paper Cutter Name Role Phone No Ref-Primary, Physician Primary Care Provider Encounter Details Date Type Department Care Team (Late st Contact Info) Description 07/18/2023 Medical Correspondence [facility] Info Mgmt [facility] [address] [place] [phone] Scan, Non-Provider Social History Tobacco Use [...] Info) Description 09/12/2023 2:15 PM CDT Appointment [facility] Maternal Medicine [facility] [address] [facility] [address] [place] [address] Angelica Wright MD [address] [place] [address] 09/12/2023 2:15 PM CDT Office Visit [facility] Medical Device Sales Representative Services [address] [place] [address] 09/12/2023 2:45 PM CDT Office Visit [facility] Maternal Medicine [facility] [address] [facility] [address] [place] [address] Angelica Wright MD [address] [place] [address] 09/26/2023 1:30 PM CDT Appointment [facility] Maternal Medicine [place] [address] [place] [phone] Mica Aguilar MD [address] [place] [address] Angelica Wright MD [address] [place] [address] 09/26/2023 2:45 PM CDT Office Visit [facility] Maternal Medicine [facility] [address] [place] [phone] Mica Aguilar MD [address] [place] [address] Angelica Wright MD [address] [place] [address] 10/10/2023 12:00 PM CDT Appointment [facility] Heart Care [address] [place] [phone] Mica Aguilar MD [address] [place], [place] [address] 10/10/2023 1:00 PM CDT Appointment [facility] Heart Care [address] [place] [phone] Mica Aguilar MD [address] [place], [place] [address] 10/10/2023 2:15 PM CDT Appointment [facility] Maternal Medicine [place] [address] [place] [phone] Mica Aguilar MD [address] [place], [place] [address] 10/10/2023 2:45 PM CDT Office Visit [facility] Maternal Medicine [facility] [address] [place], [place] 0578[address] Mica Aguilar MD [address] [facility] [address] [place], [place] [phone] documented as of this encounter Visit Diagnoses Not on filedocumented in this encounter Care Teams Paper Cutter Relationship Specialty Start Date End Date No Ref-Primary, Physician PCP - General 07/22/23 documented as of this encounter
--- OUTSIDE RECORDS SUMMARY | 2023-09-12 11:35 | XMS_ITS | Encounter Summary ---
Author Organization [place] Address [address] [facility] [place] [address] Care Team Providers Care Supervisor Pleating Name Role Phone No Ref-Primary, Physician Primary Care Provider Reason for Visit * Reason Onset Date Comments Results 08/25/2023 Expanded Carrier Screening with her partner Encounter Details Date Type Department Care Team (Late st Contact Info) Description 08/25/[address] [facility] Maternal Medicine [facility] [email or web address] [place] [address] Nelsy Diaz GC [address] [place] [address] Results (Expanded Carrier Screening with [...] Info) Description 09/12/2023 2:[address] [facility] Maternal Medicine [facility] [email or web address] [place] [address] Angelica Wright MD [address] [place], [place] [phone] 09/12/2023 2:15 PM CDT Office Visit [facility] Compression Molding Machine Setter Services [address] [place] [phone] 09/12/2023 2:45 PM CDT Office Visit [facility] Maternal Medicine [place] [address] [place] [phone] Angelica Wright MD [address] [place], [place] [address] 09/26/2023 1:[address] [facility] Maternal Medicine [place] [address] [place] [phone] Mica Aguilar MD [address] [place], [place] [phone] Angelica Wright MD [address] [place], [place] [address] 09/26/2023 2:45 PM CDT Office Visit [facility] Maternal Medicine [place] [address] [place] [phone] Mica Aguilar MD [address] [place], [place] [address] Angelica Wright MD [address] [place], [place] 8[address]84 10/10/2023 12:00 PM CDT Appointment [facility] Heart Care [address] [place] [address] [phone] Mica Aguilar MD [address] [place], [place] [address] 10/10/2023 1:00 PM CDT Appointment [facility] [address] [place] [address] Mica Aguilar MD [address] [place], [place] [address] 10/10/2023 2:[address] [facility] Maternal Medicine [place] [address] [place] [phone] Mica Aguilar MD [address] [id number] 10/10/2023 2:45 PM CDT Office Visit [facility] Maternal Medicine [facility] [place] [address] [place], [place] [address] Mica Aguilar MD [address] [address] documented as of this encounter Visit Diagnoses Not on filedocumented in this encounter Care Teams Supervisor Pleating Relationship Specialty Start Date End Date No Ref-Primary, Physician PCP - General 07/22/23 documented as of this encounter
--- OUTSIDE RECORDS SUMMARY | 2023-09-12 11:35 | XMS_ITS | Encounter Summary ---
Author Organization [place] Address [facility] [place] [address] Care Team Providers Care Corrective Therapy Aide Name Role Phone No Ref-Primary, Physician Primary Care Provider Reason for Referral * Consultation (Routine: Next available opening) - Pending Review Specialty Diagnoses / Procedures Referred By Contac t Referred To Contact Diagnoses related condition, antepartum Tomasa Carson CNM [facility] [address] [place] [address] [facility]aternal [facility] [address] [place] [address] Referral ID Status Reason Start Date Expiration Date V isits Requested Visits Authorized [id number] Pending Review 07/22/2023 07/21/2024 1 1 Question Answer Preferred Location: [facility] [place] FER[place]NDO 02/10/2024 Ultrasound NONE US PROC NONE MFM Issue OTHER (enter details in Comments) - mono-di twins, monitoring + plan for pregnacy MFM MD Consultation (unrelated to Ultrasound findings): Yes Inflammatory Bowel Disease Clinic: Joint MFM and GI Consultation: No Chronic Kidney Disease: Joint MFM and Nephrology Consultation No Genetic Counseling Consultation: No fax [facility] Tomasa Carson - Comments There is [...] (Latest Contact Info) Description 07/22/2023 Transcribe Orders [facility] Maternal Medicine [place] [address] [facility] [address] [place] [phone] Tomasa Carson CNM [facility] [address] [place] [address] related condition, antepartum (Primary Dx) Social History [...] Info) Description 09/12/2023 2:15 PM CDT Appointment [facility] Maternal Medicine [facility] [address] [facility] [address] [place] [phone] Angelica Wright MD [address] [facility] [facility] [address] [facility] [address] [place], [place] [address] 09/12/2023 2:15 PM CDT Office Visit [facility] Family Sociologist Services [facility] [place] [address] 09/12/2023 2:45 PM CDT Office Visit [facility] Maternal Medicine [facility] [address] [facility] [facility] [address] [place] [phone] Angelica Wright MD [address] [facility] [facility] [address] [facility] [address] [place], [place] [address] 09/26/2023 1:30 PM CDT Appointment [facility] Maternal Medicine [facility] [place] [address] [place] [phone] Mica Aguilar MD [address] [place] [address] Angelica Wright MD [address] [place] [address] 09/26/2023 2:45 PM CDT Office Visit [facility] Maternal Medicine [facility] [address] [place] [phone] Mica Aguilar MD [address] [address] Angelica Wright MD [address] [address] 10/10/2023 12:00 PM CDT Appointment [facility] Heart Care [address] [place] [address] [phone] Mica Aguilar MD [address] [address] 10/10/2023 1:00 PM CDT Appointment [facility] Heart Care [address] [place] [phone] Mica Aguilar MD [address] 943[address] 10/10/2023 2:15 PM CDT Appointment [facility] Maternal Medicine Center [address] [place] [phone] Mica Aguilar MD [address] [place] [address] 10/10/2023 2:45 PM CDT Office Visit [facility] Maternal Medicine [facility] [place] [address] [place], [place] [address] Mica Aguilar MD [address] [place], [place] 2[address] Scheduled Referrals Name Type Priority Associated Diagnoses Orde r Schedule Mat Med Ctr Referral - Referral Routine: Next available opening related condition, antepartum Expected: 07/22/2023 (Approximate), Expires: 01/18/2024 documented as of this encounter Visit Diagnoses Diagnosis related condition, antepartum- Primary documented in this encounter Care Teams Corrective Therapy Aide Relationship Specialty Start Date End Date No Ref-Primary, Physician PCP - General 07/22/23 documented as of this encounter
--- OUTSIDE RECORDS SUMMARY | 2023-09-12 11:35 | XMS_ITS | Encounter Summary ---
Author Organization [place] Address [address] [facility] [address] Care Team Providers Care Air Value Tester Name Role Phone No Ref-Primary, Physician Primary Care Provider Reason for Visit * Reason Onset Date Comments Results 08/14/2023 Low Risk NIPT Encounter Details Date Type Department Care Team (Late st Contact Info) Description 08/14/2023 Telephone [facility] Maternal Medicine [facility] [address] [place] [address] Nelsy Diaz GC [address] [place] [address] Results (Low Risk NIPT ) [...] Info) Description 09/12/2023 2:15 PM CDT Appointment [facility] Maternal Medicine [facility] [address] [place] [address] Angelica Wright MD [address] [place] [address] 09/12/2023 2:15 PM CDT Office Visit [facility] Shelter Director Services [address] [place] [phone] 09/12/2023 2:45 PM CDT Office Visit [facility] Maternal Medicine [facility] [address] [place] [phone] Angelica Wright MD [address] [place], [place] [address] 09/26/2023 1:30 PM CDT Appointment [facility] Maternal Medicine [place] [address] [facility] [address] [place] [phone] Mica Aguilar MD [address] [place] [address] Angelica Wright MD [address] [place], [place] [address] 09/26/2023 2:45 PM CDT Office Visit [facility] Maternal Medicine [place] [address] [facility] [address] [place] [phone] Mica Aguilar MD [address] [place], [place] [address] Angelica Wright MD [address] [place], [place] [address] 10/10/2023 12:00 PM CDT Appointment [facility] Heart Care [address] [place] [address] [phone] Mica Aguilar MD [address] [place], [place] [address] 10/10/2023 1:00 PM CDT Appointment [facility] [address] [place] [phone] Mica Aguilar MD [address] [place], [place] [address] 10/10/2023 2:15 PM CDT Appointment [facility] Maternal [facility] [address] [phone] Mica Aguilar MD [address] [phone] 10/10/2023 2:45 PM CDT Office Visit [facility] Maternal Medicine [facility] [address] [place], [place] [address] Mica Aguilar MD [address] [address] documented as of this encounter Visit Diagnoses Not on filedocumented in this encounter Care Teams Air Value Tester Relationship Specialty Start Date End Date No Ref-Primary, Physician PCP - General 07/22/23 documented as of this encounter
--- OUTSIDE RECORDS SUMMARY | 2023-09-12 11:35 | XMS_ITS | Encounter Summary ---
Author Organization [place] Address [address] [facility] [place] [address] Care Team Providers Care Field Hockey Coach Name Role Phone No Ref-Primary, Physician Primary Care Provider Reason for Referral * Diagnostic Imaging Ultrasound (Routine) - Pending Review Specialty Diagnoses / Procedures Referred By Contac t Referred To Contact Radiology. 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 Procedures MFM Twins Nuchal Trans w/US Mica Aguilar MD [address] [place] [address] Referral ID Status Reason Start Date Expiration Date V isits Requested Visits Authorized [id number] Pending Review 07/22/2023 07/21/2024 1 1 Reason for Visit * Diagnostic Imaging Ultrasound (Routine) - Pending Review Specialty Diagnoses / Procedures Referred By Contac t Referred To Contact Radiology. 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 Procedures MFM Twins Nuchal Trans w/US Mica Aguilar MD [address] [place] [address] Referral ID Status Reason Start Date Expiration Date V isits Requested Visits Authorized [id number] Pending Review 07/22/2023 07/21/2024 1 1 Encounter Details Date Type Department Care Team (Latest Contact Info) Description 08/08/2023 9:58 AM CDT - 08/08/2023 11:59 PM CDT Hospital Encounter [facility] Maternal Medicine [facility] [place] [address] [place] [phone] Mica Aguilar MD [address] [place], [place] [address] 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 [...] Info) Description 09/12/2023 2:15 PM CDT Appointment [facility] Maternal Medicine [place] [address] [place] [phone] Angelica Wright MD [address] [place], [place] [address] 09/12/2023 2:15 PM CDT Office Visit [facility] Ballaster Services [address] [place] [phone] 09/12/2023 2:45 PM CDT Office Visit [facility] Maternal Medicine [place] [address] [place] [phone] Angelica Wright MD [address] [place], [place] [address] 09/26/2023 1:30 PM CDT Appointment [facility] Maternal Medicine [place] [address] [place] [phone] Mica Aguilar MD [address] [place] [address] Angelica Wright MD [address] [facility] [address] [place] [address] 09/26/2023 2:45 PM CDT Office Visit [facility] Maternal Medicine [facility] [address] [facility] [address] [place] [phone] Mica Aguilar MD [address] [facility] [address] [place] [address] Angelica Wright MD [address] [address] 10/10/2023 12:00 PM CDT Appointment [facility] Heart Care [address] [place] [phone] Mica Aguilar MD [address] [address] [address] 10/10/2023 1:00 PM CDT Appointment [facility] Heart Care [address] [place] [address] [phone] Mica Aguilar MD [address] [facility] [address] [address] 10/10/2023 2:15 PM CDT Appointment [facility] Maternal Medicine Center [place] [address] [place] [phone] Mica Aguilar MD [address] [facility] [address] [address] 10/10/2023 2:45 PM CDT Office Visit [facility] Maternal Medicine [facility] [place] [address] [address] Mica Aguilar MD [address] [place], [place] 9[address] documented as of this encounter Procedures Procedure [...] ? Study Date: ??08/08/2023 11:06am Pat. NO: ??[id number] ?Referring ??MD: RAYA SHAH Site: ??[facility] ? Certified Registered Nurse Practitioner: Christopher Street RDMS : ??2000 ?Age: ?? [...] MISHRA Study Date: 08/08/2023 11:06am Pat. NO: [id number] Referring MD: RAYA SHAH Site: [facility] Certified Registered Nurse Practitioner: [address] Street RDMS : 2000 Age: 22 [...] for early gestational age. Mica Aguilar MD [facility] S documented in this encounter Visit Diagnoses Diagnosis 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 documented in this encounter Care Teams Field Hockey Coach Relationship Specialty Start Date End Date No Ref-Primary, Physician PCP - General 07/22/23 documented as of this encounter
--- OUTSIDE RECORDS SUMMARY | 2023-09-12 11:35 | XMS_ITS | Encounter Summary ---
Author Organization [place] Address [address] [facility] [place] [address] Care Team Providers Care Shell Press Operator Name Role Phone No Ref-Primary, Physician Primary Care Provider Reason for Visit * Reason Comments Genetic Counseling Highlands/di twins, scree yohana Ultrasound NT Consult Highlands/di twins Encounter Details Date Type Department Care Team (Late st Contact Info) Description 08/01/2023 PRE VISIT [facility] Maternal Medicine [facility] [address] [place] [address] Karie Barrow RN Genetic Counseling (Highlands/di twins, screening); Ultrasound (NT); Consult (Highlands/di twins) Social History Tobacco Use Types Packs/Day [...] Info) Description 09/12/2023 2:15 PM CDT Appointment [facility] Maternal Medicine [facility] [address] [place] [address] Angelica Wright MD [address] [place], [place] [address] 09/12/2023 2:15 PM CDT Office Visit [facility] [employer] Trimmer Services [address] [place] [address] [phone] 09/12/2023 2:45 PM CDT Office Visit [facility] Maternal Medicine [place] [address] [facility] [address] [place] [phone] Angelica Wright MD [address] [place], [place] [address] 09/26/2023 1:30 PM CDT Appointment [facility] Maternal Medicine [place] [address] [place] [phone] Mica Aguilar MD [address] [place] [address] 8[address]194 Angelica Wright MD [address] [place] [phone] 09/26/2023 2:45 PM CDT Office Visit [facility] Maternal Medicine [place] [address] [facility] [address] [place] [phone] Mica Aguilar MD [address] [place], [place] [address] Angelica Wright MD [address] [place], [place] [address] 10/10/2023 12:00 PM CDT Appointment [facility] Heart Care [address] [place] [phone] Mica Aguilar MD [address] [place] [address] 10/10/2023 1:00 PM CDT Appointment [facility] Heart Care [address] [place] [phone] Mica Aguilar MD [address] [facility] [address] 10/10/2023 2:15 PM CDT Appointment [facility] Maternal Medicine [facility] [address] [place] [phone] Mica Aguilar MD [address] [address] 10/10/2023 2:45 PM CDT Office Visit [facility] Maternal Medicine [facility] [address] [place] [address] Mica Aguilar MD [address] [facility] [address] documented as of this encounter Visit Diagnoses Not on filedocumented in this encounter Care Teams Shell Press Operator Relationship Specialty Start Date End Date No Ref-Primary, Physician PCP - General 07/22/23 documented as of this encounter
--- OUTSIDE RECORDS SUMMARY | 2023-09-12 11:35 | XMS_ITS | Encounter Summary ---
Author Organization [facility] Address [address] [place] [address] Care Team Providers Care Ear Pull Machine Operator Name Role Phone No Ref-Primary, Physician Primary Care Provider Reason for Referral * Consultation (Routine: Next available opening) - Pending Review Specialty Diagnoses / Procedures Referred By Contac t Referred To Contact 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 Mica Aguilar MD [address] [address] Referral ID Status Reason Start Date Expiration Date V isits Requested Visits Authorized [id number] Pending Review 07/22/2023 07/21/2024 1 1 Question Answer MFM Consult Yes Comments Radiologic * Consultation (Routine: Next available opening) - Pending Review Specialty Diagnoses / Procedures Referred By Contac t Referred To Contact 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 Mica Aguilar MD [address] [place] [address] Referral ID Status Reason Start Date Expiration Date V isits Requested Visits Authorized [id number] Pending Review 07/22/2023 07/21/2024 1 1 * Diagnostic Imaging Ultrasound (Routine) - Pending Review Specialty Diagnoses / Procedures Referred By Contac t Referred To Contact Radiology. 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 Procedures MFM Twins Nuchal Trans w/US Mica Aguilar MD [address] [place] [address] Referral ID Status Reason Start Date Expiration Date V isits Requested Visits Authorized [id number] Pending Review 07/22/2023 07/21/2024 1 1 Encounter Details Date Type Department Care Team (Late st Contact Info) Description 07/22/2023 Orders Only [facility] Maternal Medicine [facility] [address] [place] [address] Ashley Hassan RN Monochorionic diamniotic [...] Info) Description 09/12/2023 2:15 PM CDT Appointment [facility] Maternal Medicine [facility] [address] [place] [address] Angelica Wright MD [address] [place], [place] [address] 09/12/2023 2:15 PM CDT Office Visit [facility] [employer] [facility] [place] [address] 09/12/2023 2:45 PM CDT Office Visit [facility] Maternal Medicine [facility] [address] [place] [address] Angelica Wright MD [address] [place] [address] 09/26/2023 1:30 PM CDT Appointment [facility] Maternal Medicine [facility] [address] [place] [phone] Mica Aguilar MD [address] [address] Angelica Wright MD [address] [address] 09/26/2023 2:45 PM CDT Office Visit [facility] Maternal Medicine [facility] [address] [place] [phone] Mica Aguilar MD [address] [address] Angelica Wright MD [address] [address] 10/10/2023 12:00 PM CDT Appointment [facility] [address] [place] [phone] Mica Aguilar MD [address] [id number] 10/10/2023 1:00 PM CDT Appointment [facility] [address] [place] [phone] Mica Aguilar MD [address] [address] 10/10/2023 2:15 PM CDT Appointment [facility] Maternal Medicine Center [address] [place] [phone] Mica Aguilar MD [address] [place], [place] [address] 10/10/2023 2:45 PM CDT Office Visit [facility] Maternal Medicine [facility] [place] [address] [place], [place] [address] Mica Aguilar MD [address] [place], [place] [phone] Scheduled Referrals Name Type Priority Associated Diagnoses Orde r Schedule [facility] Genetic Counseling Referral Routine: Next available opening 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 Expected: 07/22/2023 (Approximate), Expires: 07/21/2024 [facility] Office Visit Referral Routine: Next available opening 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 Expected: 07/22/2023 (Approximate), Expires: 07/21/2024 documented as of this encounter Results * [facility] Twins Nuchal Trans w/US (08/08/2023 11:54 [...] ? Study Date: ??08/08/2023 11:06am Pat. NO: ??[id number] ?Referring ??MD: RAYA SHAH Site: ??[facility] ? Sand Carrier: [address] RDMS : ??2000 ?Age: ?? [...] MISHRA Study Date: 08/08/2023 11:06am Pat. NO: [id number] Referring MD: RAYA SHAH Site: [facility] Sand Carrier: [address] RDMS : 2000 Age: 22 [...] ----- Thank-you for referring your patient for [facility] consult & ultrasoundassessment. We discussed the [...] for early gestational age. Mica Aguilar MD [facility] [place] US ORDERABLE S documented in this encounter Visit Diagnoses Diagnosis 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- Primary 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 documented in this encounter Care Teams Ear Pull Machine Operator Relationship Specialty Start Date End Date No Ref-Primary, Physician PCP - General 07/22/23 documented as of this encounter
--- OUTSIDE RECORDS SUMMARY | 2023-09-12 11:36 | XMS_ITS | Clinical Summary ---
Author Organization [facility] Address [place], [place] [address] Care Team Providers Care Journeyman Electrician Name Role Phone None Primary Care Provider [...] CDT - 06/24/2023 7:50 PM CDT Emergency [facility] [address] [place] [address] Una Franks NP Abdominal pain during , [...] 06/24/2023 7:36:39 PM (Electronically Signed) Una Franks FLASK FITTER US * CBC WITH AUTO DIFFERENTIAL (06/24/2023 4:30 PM CDT) WHITE BLOOD COUNT 10.2 4.5 - 11.0 thou/cu mm 06/24/2023 4:39 PM [facility] RED BLOOD COUNT 4.34 4.00 - 5.20 mil/cu mm 06/24/2023 4:39 PM [facility] HEMOGLOBIN 12.7 12.0 - 16.0 g/dL 06/24/2023 4:39 PM [facility] HEMATOCRIT 37.0 33.0 - 51.0 % 06/24/2023 4:39 PM [facility] MCV 85 80 - 100 fL 06/24/2023 4:39 PM [facility] MCH 29.3 26.0 - 34.0 pg 06/24/2023 4:39 PM [facility] MCHC 34.3 32.0 - 36.0 g/dL 06/24/2023 4:39 PM [facility] RDW 12.5 11.5 - 15.5 % 06/24/2023 4:39 PM [facility] PLATELET COUNT 265 140 - 440 thou/cu mm 06/24/2023 4:39 PM [facility] MPV 10.2 6.5 - 11.0 fL 06/24/2023 4:39 PM [facility] % NEUT 66.9 % 06/24/2023 4:39 PM [facility] % LYMPH 23.4 % 06/24/2023 4:39 PM [facility] % MONO 5.6 % 06/24/2023 4:39 PM CDT [facility] % EOS 3.6 % 06/24/2023 4:39 PM CDT [facility] % BASO 0.5 % 06/24/2023 4:39 PM CDT [facility] ABSOLUTE NEUTROPHILS 6.8 1.7 - 7.0 thou/cu mm 06/24/2023 4:39 PM CDT [facility] ABSOLUTE LYMPHOCYTES 2.4 0.9 - 2.9 thou/cu mm 06/24/2023 4:39 PM CDT [facility] ABSOLUTE MONOCYTES 0.6 <0.9 thou/cu mm 06/24/2023 4:39 PM CDT [facility] ABSOLUTE EOSINOPHILS 0.4 <0.5 thou/cu mm 06/24/2023 4:39 PM CDT [facility] ABSOLUTE BASOPHILS 0.1 <0.3 thou/cu mm 06/24/2023 4:39 PM CDT [facility] Blood BLOOD SPECIMEN / Unknown Venipuncture / Unknown 06/24/2023 4:30 PM CDT 06/24/2023 4:35 PM CDT Una Franks NP HEMATOLOGY [facility] [address] [place] [address] * RH(D) TYPE (06/24/2023 4:30 PM CDT) RH(D) TYPE Positive 06/24/2023 4:54 PM CDT [facility] BLOOD BANK Blood BLOOD SPECIMEN / Unknown Venipuncture / Unknown 06/24/2023 4:30 PM CDT 06/24/2023 4:35 PM CDT Una Franks NP BLOOD BANK [facility] BLOOD BANK [address] [place] [address] * HCG BETA QUANT, (06/24/2023 4:30 PM CDT) Pathologist [facility] HCG BETA QUANT,PREGNANC Y 46,241 mIU/mL 06/24/2023 5:28 PM CDT [facility] Blood BLOOD SPECIMEN / Unknown Venipuncture / Unknown 06/24/2023 4:30 PM CDT 06/24/2023 4:35 PM CDT [facility] - 06/24/2023 5:28 PM [...] prior to retesting. Una Franks NP CHEMISTRY [facility] [address] [place] [address] * BASIC METABOLIC PANEL (06/24/2023 4:30 PM CDT) Pathologist [facility] SODIUM 137 136 - 145 mmol/L 06/24/2023 4:56 PM CDT [facility] POTASSIUM 3.9 3.5 - 5.1 mmol/L 06/24/2023 4:56 PM [facility] CHLORIDE 102 98 - 107 mmol/L 06/24/2023 4:56 PM [facility] CO2,TOTAL 24 22 - 29 mmol/L 06/24/2023 4:56 PM [facility] ANION GAP 11 5 - 18 06/24/2023 4:56 PM [facility] GLUCOSE 76 70 - 99 mg/dL 06/24/2023 4:56 PM [facility] CALCIUM 10.0 8.6 - 10.0 mg/dL 06/24/2023 4:56 PM [facility] BUN 8 6 - 20 mg/dL 06/24/2023 4:56 PM [facility] CREATININE 0.66 0.50 - 0.90 mg/dL 06/24/2023 4:56 PM [facility] BUN/CREAT RATIO 12 10 - 20 4:56 PM [facility] eGFR >90 >90 mL/min/1.7 3m2 06/24/2023 4:56 PM [facility] Comment:As of 2021, eG FR [...] 4:35 PM CDT Una Franks NP CHEMISTRY [facility] [address] [place] [address] * (ABNORMAL) UA W/ SEDIMENT EXAM REFLEXED PER CRITERIA (06/24/2023 4:01 PM CDT) COLOR Yellow Yellow Color 06/24/2023 4:14 PM T [facility] CLARITY Clear Clear Clarity 06/24/2023 4:14 PM [facility] SPECIFIC GRAVITY,URINE <=1.005(A) 1.010, 1.015, 1.020, 1.025 06/24/2023 4:14 PM [facility] PH,URINE 6.0 6.0, 7.0, 8.0, 5.5, 6.5, 7.5, 8.5 06/24/2023 4:14 PM [facility] UROBILINOGEN, QUALITATIVE Normal Normal EU/dl 06/24/2023 4:14 PM T [facility] PROTEIN, URINE Negative Negative mg/dL 06/24/2023 4:14 PM [facility] GLUCOSE, URINE Negative Negative mg/dL 06/24/2023 4:14 PM [facility] KETONES,URINE Negative Negative mg/dL 06/24/2023 4:14 PM T [facility] BILIRUBIN,URI NE Negative Negative 06/24/2023 4:14 PM [facility] OCCULT BLOOD,URINE Negative Negative 06/24/2023 4:14 PM [facility] NITRITE Negative Negative 06/24/2023 4:14 PM [facility] LEUKOCYTE ESTERASE Negative Negative 06/24/2023 4:14 PM [facility] Urine URINE SPECIMEN / Unknown Non-Blood / Unknown 06/24/2023 4:01 PM CDT 06/24/2023 4:07 PM CDT Una Franks NP URINE Performing Organization Address [facility]/State/[facility] Co de Phone Number [facility] [address] [place] [address] * (ABNORMAL) URINE (06/24/2023 4:01 PM CDT) ,URIN E Positive(P ositive) Negative 06/24/2023 4:14 PM T [facility] Comment:Is Rh typing necessa ry? Urine URINE SPECIMEN / Unknown Non-Blood / Unknown 06/24/2023 4:01 PM CDT 06/24/2023 4:07 PM CDT Una Franks FLASK FITTER URINE [facility] [address] [place] [address] from Last 3 Months Care Teams Journeyman Electrician Relationship Specialty Start Date End Date None . PCP - General 06/23/23
== END 2023-09-12 11:33 | disposition home or self-care (01) ==
PROVIDERS: Visit Provider Obstetrics & Gynecology
DX: R74.01 Elevation of levels of liver transaminase levels (principal)
CPT/HCPCS: 82247; 82248; 84450; 84460

== ENCOUNTER 2023-11-13 12:35 | Outpatient (CLI) | payer BC, SELFPAY ==
--- OUTSIDE RECORDS SUMMARY | 2023-11-18 08:31 | XMS_ITS | Encounter Summary ---
Author Organization [place] Address [address] [facility] [place] [address] Care Team Providers Care Coning Machine Operator Name Role Phone No Ref-Primary, Physician Primary Care Provider Mica Aguilar MD Unavailable [phone] Encounter Details Date Type Department Care Team (Latest Contact Info) Description 11/07/2023 Travel Social History Tobacco Use Types Packs/Day Years Used Date Smoking Tobacco: Never Passive Smoke Exposure: Never Smokeless Tobacco: Never Alcohol Use Standard Drinks/Week Comments Not Currently 0 (1 standard drink = 0.6 oz pur e alcohol) Adolescent Education Answer Date Record ed Getting [...] Care Team (Late st Contact Info) Description 11/21/2023 10:15 AM CDT Appointment [facility] [place] [address] [facility] [address] [place] [address] Tomasa Dickens MD [address] [place], [place] [address] Nitin Morris MD [address] [place] [address] 11/21/2023 10:45 AM CDT Office Visit [facility] Maternal Medicine [facility] [place] [address] [place] [phone] Tomasa Dickens MD [address] [place] [address] Nitin Morris MD [address] [place] [address] 12/05/2023 2:15 PM CDT Appointment [facility] Maternal Medicine [place] [address] [place] [phone] Tomasa Dickens MD [address] [place] [address] 12/05/2023 2:45 PM CDT Office Visit [facility] Maternal Medicine [place] [address] [place] [phone] Tomasa Dickens MD [address] [place] [address] 12/19/2023 11:00 AM CDT Appointment [facility] Maternal Medicine [place] [address] [place] [phone] Tomasa Dickens MD [address] [place] [address] 12/19/2023 11:30 AM CDT Office Visit [facility] Maternal Medicine [place] [address] [place] [phone] Tomasa Dickens MD [address] [place] [address] 12/26/2023 3:00 PM CDT Appointment [facility] [place] [address] [place] [phone] Tomasa Dickens MD [address] [place] [address] 12/26/2023 3:30 PM CDT Office Visit [facility] Maternal Medicine [place] [address] [place] [phone] Tomasa Dickens MD [address] [place] [address] 01/02/2024 2:15 PM CDT Appointment [facility] Maternal Medicine [place] [address] [place] [phone] Tomasa Dickens MD [address] [place] [address] 01/02/2024 2:45 PM CDT Office Visit [facility] [place] [address] [place] [phone] Tomasa Dickens MD [address] [place] [address] 01/09/2024 3:00 PM CDT Appointment [facility] [place] [address] [place] [phone] Tomasa Dickens MD [address] [place] [address] 01/09/2024 3:30 PM CDT Office Visit [facility] Maternal Medicine [place] [address] [facility] [address] [place] [phone] Tomasa Dickens MD [address] [place], [place] [address] 01/16/2024 2:15 PM RETAIL BANKING MANAGER Appointment [facility] Medicine [place] [address] [facility] [address] [place] [phone] Tomasa Dickens MD [address] [place] [address] 01/16/2024 2:45 PM RETAIL BANKING MANAGER Office Visit [facility] Maternal Medicine [place] [address] [facility] [address] [place] [phone] Tomasa Dickens MD [address] [place], [place] [phone] documented as of this encounter Visit Diagnoses Not on filedocumented in this encounter Care Teams Coning Machine Operator Relationship Specialty Start Date End Date No Ref-Primary, Physician PCP - General 07/22/23 Mica Aguilar MD [address] [place] [address] Assigned OBGYN Provider 08/31/23 documented as of this encounter
--- OUTSIDE RECORDS SUMMARY | 2023-11-18 08:31 | XMS_ITS | Clinical Summary ---
Author Organization [facility] Address [address] [place] [address]. [place] [address] Care Team Providers Care Commuter Pilot Name Role Phone No Ref-Primary, Physician Primary Care Provider Vanita Lin MD Unavailable [phone] Allergies No known active allergies Medications Medication Sig Dispensed Refills Start Date End Date Status Vit-Fe Fumarate-FA ( MULTIVITAMIN PLUS IRON) 27-1 MG TABS Take 1 tablet by mouth daily Active aspirin 81 MG EC tablet Take 81 mg by mouth daily Active acetaminophen (TYLENOL) 325 MG tabletIndications:Cerv ical shortening affecting in second trimester Take 1-2 tablets (325-650 mg) by mouth every 6 hours as needed for mild pain 30 tablet 09/28/2023 Active Active Problems Problem Noted Date Diagnosed Date Cervical shortening affecting in secon d trimester 09/26/2023 Estimated Date of Delivery Comme nts Yes 02/10/2024 Based on Ultraso und Encounters Date Type Department Care Team Description 11/07/2023 2:00 PM CDT Office Visit [facility] [place] [address] [facility] [address] [place] [address] Angelica Wright MD 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 (Primary Dx) 11/07/2023 1:01 PM CDT - 11/07/2023 11:59 PM CDT Hospital Encounter [facility] [place] [address] [place] [address] Angelica Wright MD 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 Discharge Disposition: Home or Self Care 11/07/2023 Travel 10/24/2023 2:45 PM CDT Office Visit [facility] [address] [place] [address] Angelica Wright MD Nyholm, Jessica Lea, MD 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 (Primary Dx) 10/24/2023 2:10 PM CDT - 10/24/2023 11:59 PM CDT Hospital Encounter [facility] [place] [address] [place] [address] Angelica Wright MD 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 Discharge Disposition: Home or Self Care 10/24/2023 Travel 10/10/2023 11:09 AM CDT - 10/10/2023 11:59 PM CDT Hospital Encounter [facility] [address] [place] [phone] Vanita Lin MD Paredes, Carmen R 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 Discharge Disposition: Home or Self Care 10/10/2023 10:59 AM CDT - 10/10/2023 11:08 AM CDT Hospital Encounter [facility] [address] [place] [phone] Vanita Lin MD 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 Discharge Disposition: Home or Self Care 10/10/2023 Office Visit M [facility] [address] [place] [phone] Esequiel Grier MD cardiac disease affecting , fetus 1 of multiple gestation (Primary Dx); cardiac disease affecting , fetus 2 of multiple gestation 10/10/2023 Travel 10/08/2023 12:15 PM CDT Office Visit [facility] [place] [address] [place] [address] Vanita Lin MD Rauk, Case Seals MD 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 (Primary Dx) 10/08/2023 11:26 AM CDT - 10/08/2023 11:59 PM CDT Hospital Encounter [facility] [place] [address] [place] [address] Vanita Lin MD Rauk, Case Seals MD 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 Discharge Disposition: Home or Self Care 10/08/2023 Travel 09/30/2023 9:15 AM CDT Office Visit [facility] [place] [address] [place] [address] Vanita Lin MD Rauk, Case Seals MD 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 (Primary Dx) 09/30/2023 8:45 AM CDT - 09/30/2023 11:59 PM CDT Hospital Encounter [facility] [place] [address] [place] [address] Vanita Lin MD Rauk, Case Seals MD 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 Discharge Disposition: Home or Self Care 09/30/2023 Travel 09/27/2023 9:12 AM CDT Anesthesia Event [facility] [address] [place] [phone] Agustina Dinh MD Yang, Simon, MD 09/27/2023 9:00 AM CDT - 09/27/2023 10:15 AM CDT Surgery [facility] [address] [phone] Heidi Swain MD [place] cervical 09/26/2023 4:43 PM CDT - 09/28/2023 12:22 PM CDT Hospital Encounter [facility] [address] [place] [address] [place] [phone] Heidi Swain MD Cervical shortening affecting in second trimester (Primary Dx) Discharge Disposition: Home or Self Care 09/26/2023 2:45 PM CDT Office Visit [facility] [place] [address] [place] [phone] Vanita Lin MD Yamamura, Yasuko, MD 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 (Primary Dx); Cervical insufficiency during in second trimester, antepartum 09/26/2023 1:30 PM CDT Office Visit [facility] [employer] [facility] [employer] [address] [place] [phone] GriffithLamar 09/26/2023 1:22 PM CDT - 09/26/2023 4:42 PM CDT Hospital Encounter [facility] [place] [address] [place] [phone] Vanita Lin MD Yamamura, Yasuko, MD 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 Discharge Disposition: Home or Self Care 09/26/2023 Travel 08/29/2023 2:00 PM CDT Office Visit [facility] [address] [place] [phone] Vanita Lin MD Rauk, Case Seals MD 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 (Primary Dx) 08/29/2023 1:19 PM CDT - 08/29/2023 11:59 PM CDT Hospital Encounter [facility] [address] [place] [phone] Vanita Lin MD Rauk, Case Seals MD 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 Discharge Disposition: Home or Self Care 08/29/2023 Travel 08/25/2023 Telephone [facility] [address] [facility] [address] [place] [address] [employer] GC Results (Expanded Carrier Screening with her partner) from Last 3 Months Social History Tobacco Use Types Packs/Day Years Used Date Smoking Tobacco: Never Passive Smoke Exposure: Never Smokeless Tobacco: Never Tobacco Cessation:Counseling Given: No Alcohol Use Standard Drinks/Week Comments Not Currently [...] Sign Reading Time Taken Comments Blood Pressure 98/56 09/28/2023 8:48 AM CDT Pulse 96 09/27/2023 2:32 PM CDT Temperature 36.7 ??C (98.1 ??F) 09/28/2023 8:48 AM CD T Respiratory Rate 16 09/28/2023 8:48 AM CDT Oxygen Saturation 98% 09/27/2023 2:45 PM CDT Inhaled Oxygen Concentration - - Weight 75.8 kg (167 lb) 09/26/2023 4:59 PM CDT Height 154.9 cm (5' 1) 09/26/2023 4:59 PM CDT Body Mass Index 31.55 09/26/2023 4:59 PM CDT Plan of Treatment Upcoming Encounters Date Type Department Care Team (Late st Contact Info) Description 11/21/2023 10:15 AM CDT Appointment [facility] [address] [facility] [address] [place] [address] Raya Dickens MD [address] [address] Nitin Morris MD [address] [place] [address] 11/21/2023 10:45 AM CDT Office Visit [facility] [place] [address] [place] [phone] Raya Dickens MD [address] [place] [address] Nitin Morris MD [address] [place] [address] 12/05/2023 2:15 PM CDT Appointment [facility] [place] [address] [place] [phone] Raya Dickens MD [address] [place] [address] 12/05/2023 2:45 PM CDT Office Visit [facility] [place] [address] [place] [phone] Raya Dickens MD [address] [place] [address] 12/19/2023 11:00 AM CDT Appointment [facility] [place] [address] [place] [phone] Raya Dickens MD [address] [place] [address] 12/19/2023 11:30 AM CDT Office Visit [facility] [place] [address] [place] [phone] Raya Dickens MD [address] [place] [address] 12/26/2023 3:00 PM CDT Appointment [facility] [place] [address] [place] [phone] Raya Dickens MD [address] [place] [address] 12/26/2023 3:30 PM CDT Office Visit [facility] [place] [address] [place] [phone] Raya Dickens MD [address] [place] [address] 01/02/2024 2:15 PM CDT Appointment [facility] [place] [address] [place] [phone] Raya Dickens MD [address] [place] [address] 01/02/2024 2:45 PM CDT Office Visit [facility] [place] [address] [place] [phone] Raya Dickens MD [address] [place], [place] [address] 01/09/2024 3:00 PM CDT Appointment [facility] [place] [address] [place] [phone] Raya Dickens MD [address] [place], [place] [address] 01/09/2024 3:30 PM CDT Office Visit [facility] [address] [place] [phone] Raya Dickens MD [address] [place], [place] [address] 01/16/2024 2:15 PM [employer] Appointment [facility] [address] [place] [phone] Raya Dickens MD [address] [place], [place] [address] 01/16/2024 2:45 PM [employer]IGAR[employer]TE C[employer] SE[employer]ER Office Visit [facility] [address] [place] [phone] Raya Dickens MD [address] [place], [place] [address] Health Maintenance Due Date Last Done Comments ADVANCE CARE PLANNING 2000 ANNUAL REVIEW OF HM ORDERS 2000 YEARLY PREVENTIVE VISIT 2000 Pneumococcal Vaccine: Pediatrics (0 to 5 Years) and At-Risk Patients (6 to 64 Years) (1 of 2 - PCV) 2006 HIV SCREENING 10/12/2015 HPV IMMUNIZATION (1 - 3-dose series) 10/12/2015 HEPATITIS C SCREENING 2018 PAP 2021 PHQ-2 (once per calendar year) 2023 OBGCT (OB) 10/21/2023 COVID-19 Vaccine (1 - 2022-2 4 season) 2023 INFLUENZA VACCINE (#1) 2023 03/29/2014 RSV VACCINE (1 - Risk 1-dose series) 12/16/2023 CHLAMYDIA SCREENING 09/25/2024 09/26/2023, 09/26/2023 DTAP/TDAP/TD IMMUNIZATION (4 - Td or Tdap) 11/22/2024 11/22/2014, 05/06/2014, 03/29/2014 MENINGITIS IMMUNIZATION Aged Out 03/29/2014 No l onger eligible based on patient's age to complete this topic HEPATITIS B IMMUNIZATION Completed 015, 05/06/2014, 04/08/2014 MATERNAL SCREENING DISCUSSION Completed 08/08/2023 RSV MONOCLONAL ANTIBODY Aged Out No l onger eligible based on patient's age to complete this topic Procedures Procedure Name Priority Date/Time Associated Diagnosis Comments MFM TWINS US COMPREHENSIVE F/U Routine 11/07/2023 2:29 PM CDT 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 MFM TWINS US COMPREHENSIVE F/U Routine 10/24/2023 3:18 PM CDT 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 ECHO - TWIN B COMPLETE Routine 10/10/2023 1:35 PM CDT 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 ECHO COMPLETE Routine 10/10/2023 1 :35 PM CDT 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 MFM TWINS US COMPREHENSIVE F/U Routine 10/08/2023 12:09 PM CDT 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 MFM TWINS US COMPREHENSIVE F/U Routine 09/30/2023 9:52 AM CDT 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 ANE SPINAL BLOCK FORM Routine 09/27/2023 9:20 AM CDT CERCLAGE, CERVIX, VAGINAL APPROACH 09/27/2023 9:02 AM CDT URINE CULTURE Routine 09/26/2023 5:51 PM CDT ROUTINE UA WITH MICROSCOPIC Routine 09/26/2023 5:51 PM CDT CHLAMYDIA TRACHOMATIS PCR Routine 09/26/2023 5:50 PM CDT NEISSERIA GONORRHOEAE PCR Routine 09/26/2023 5:50 PM CDT WET PREPARATION Routine 09/26/2023 5:50 PM CDT ABO/RH TYPE AND SCREEN STAT 4 5:15 PM CDT TYPE AND SCREEN, ADULT STAT 4 5:15 PM CDT EXTRA GREEN TOP (LITHIUM HEPARIN) TUBE Routine 09/26/2023 5:15 PM CDT EXTRA SERUM SEPARATOR TUBE (SST) Routine 09/26/2023 5:15 PM CDT EXTRA TUBE Routine 09/26/2023 5:15 PM CDT CBC WITH PLATELETS STAT 09/26/2023 5: 15 PM CDT MFM TWINS US COMPREHENSIVE Routine 09/26/2023 3:21 PM CDT 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 MFM TWINS US OB COMPLETE 2/3 TRI Routine 08/29/2023 2:47 PM CDT 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 MYRIAD NON-INVASIVE SCREENING PREQUEL Routine 08/08/2023 12:45 PM CDT screening encounter from Last 3 Months or Most Recently Relevant to Health Maintenance Results * MFM Twins US Comprehensive F/U (11/07/2023 2:29 PM CDT) Only the most recent of4 resultswithin the time period is included. Anatomical Region Laterality Modality Ultrasound 11/07/2023 1:25 PM CDT Impressions 11/07/2023 2:56 PM CDT IMPRESSION ----- Monochorionic diamniotic twin gestation at 26w 3d gestational age. Fetus 1 1. No anomalies commonly detected by ultrasound were identified in the limited anatomic survey within the limits of ultrasound. 2. Growth parameters and estimated weight were consistent with gestational age predicted by assigned FERNANDO. 3. The amniotic fluid volume appeared normal. A normal bladder was visualized. 4. The umbilical artery Doppler studies were within normal limits. 5. The middle cerebral artery Doppler studies were within normal limits. Fetus 2 1. No anomalies commonly detected by ultrasound were identified in the limited anatomic survey within the limits of ultrasound. 2. Growth parameters and estimated weight were consistent with gestational age predicted by assigned FERNANDO. The inter-twin discordance was 8.6%. 3. The amniotic fluid volume appeared normal. A normal bladder was visualized. 4. The umbilical artery Doppler studies were within normal limits. 5. The middle cerebral artery Doppler studies were within normal limits. Today's ultrasound does not support a diagnosis of twin twin transfusion syndrome or twin anemia polycythemia syndrome. Narrative 11/07/2023 2:56 PM CDT ?Comp Follow Up ----- Pat. Name: KYARA ALVAREZ ? Study Date: ??11/07/2023 1:25pm Pat. NO: ??[id number] ?Referring ??: RAYA SHAH Site: ? Program Mgr: Sindhu Maurer RDMS : ??2000 ?Age: ?? 23 ----- INDICATION ----- Reevaluate growth, Twin A - EFW 12% on previous ultrasound Monochorionic, Diamniotic Twin gestation METHOD ----- Transabdominal ultrasound examination. View: Suboptimal view: limited by position ----- Twin . Number of fetuses: 2. Monochorionic-diamniotic DATING ----- ? Date ?Details ?Gest. age ?FERNANDO LMP ?04/29/2023 ?Cycle: irregular cycle ? 27 w + 3 d ? 02/03/2024 Previous U/S ?07/18/2023 ?GA, GA 10 w + 3 d ?26 w + 3 d ? 02/10/2024 U/S Fetus 1 ? 11/07/2023 ? based upon AC, BPD, Femur, HC ?25 w + 4 d ? 02/16/2024 U/S Fetus 2 ?based upon AC, BPD, Femur, HC ?25 w + 6 d ? 02/14/2024 Assigned dating ?based on ultrasound (GA), selected on 11/07/2023 ?26 w + 3 d ? 02/10/2024 Fetus 1: GENERAL EVALUATION ----- Cardiac activity present. FHR 148 bpm. movements: visualized. Presentation: cephalic, maternal right, presenting Placenta: Anterior, thin dividing membrane Umbilical cord: 3 vessel cord Amniotic fluid: Amount of AF: normal. MVP 6.9 cm Fetus 2: GENERAL EVALUATION ----- Cardiac activity present. FHR 161 bpm. movements: visualized. Presentation: transverse with head to maternal right, superior, on maternal right Placenta: Anterior, thin dividing membrane Umbilical cord: 3 vessel cord Amniotic fluid: Amount of AF: normal. MVP 7.4 cm Fetus 1: BIOMETRY ----- BPD ? 64.1 ?mm ? 25w 6d ?Hadlock OFD ? 84.5 ?mm ? 25w 3d ?Nicolaides HC ? 238.1 ?mm ? 25w 6d ? Hadlock Cerebellum tr ?29.8 ?mm ? 26w 3d ? Nicolaides AC ? 216.5 ?mm ? 26w 1d ?32% ?Hadlock Femur ?44.0 ?mm ? 24w 3d ? Hadlock Humerus ? 41.9 ? mm ?25w 2d ?Celestina Weight Calculation: EFW ?818 ? g ?11% ? Hadlock EFW (lb,oz) ?1 lb 13 ?oz EFW by ?Hadlock ([id number]) EFW discordance ?8.2 ? % Head / Face / Neck Biometry: Valve Maker ?5.2 ? mm CM ? 4.2 ? mm Fetus 2: BIOMETRY ----- BPD ? 63.7 ?mm ? 25w 5d ?Hadmontana OFD ? 87.1 ?mm ? 26w 0d ?Nicolaides HC ? 241.1 ?mm ? 26w 1d ? Hadlock Cerebellum tr ?30.0 ?mm ? 26w 4d ? Nicolaides AC ? 226.7 ?mm ? 27w 0d ?61% ?Hadlock Femur ?44.7 ?mm ? 24w 5d ? Hadlock Weight Calculation: EFW ?891 ? g ? 26% ?Hadlock EFW (lb,oz) ?1 lb 15 ? oz EFW by ?Hadlock ([id number]) EFW discordance ?8.2 ? % Head / Face / Neck Biometry: Valve Maker ?7.7 ? mm CM ? 4.0 ? mm Fetus 1: ANATOMY ----- The following structures appear normal: Head / Neck ? Cranium. Head size. Head shape. Lateral ventricles. Midline falx. Cavum septi pellucidi. Cerebellum. Cisterna magna. Thalami. Face ? Lips. Profile. Nose. Heart / Thorax ?RVOT view. LVOT view. 8-jnjrgu-ipuflgz view. ? Diaphragm. Abdomen ? Stomach. Kidneys. Bladder. Genitals. Spine ?Cervical spine. Thoracic spine. Lumbar spine. Sacral spine. The following structures were documented previously: Heart / Thorax ?4-chamber view. sex: female. Fetus 2: ANATOMY ----- The following structures appear normal: Head / Neck ? Cranium. Head size. Head shape. Lateral ventricles. Midline falx. Cavum septi pellucidi. Cerebellum. Cisterna magna. Thalami. Face ? Lips. Nose. Heart / Thorax ?RVOT view. LVOT view. 8-tzmwzf-hjgdlrr view. ? Diaphragm. Abdomen ? Stomach. Kidneys. Bladder. Spine ?Cervical spine. Thoracic spine. Lumbar spine. Sacral spine. The following structures were documented previously: Face ? Profile. Heart / Thorax ?4-chamber view. sex: female. Fetus 1: DOPPLER ----- Umbilical Artery: normal PI ? 1.32 ? 90% ? Kunal HR ? 153 ? bpm Mid Cerebral Artery: normal PS ? 34.63 ?cm/s PS ? 1.01 ?MoM Fetus 2: DOPPLER ----- Umbilical Artery: normal PI ? 0.93 ? 23% ? Kunal HR ? 183 ? bpm Mid Cerebral Artery: normal PS ? 39.86 ?cm/s PS ? 1.16 ?MoM MATERNAL STRUCTURES ----- Cervix ?Suboptimal Right Ovary ?Not examined Left Ovary ?Not examined RECOMMENDATION ----- We discussed the findings on today's ultrasound with the patient. Given EFW at the lower end of normal in twin A, a repeat assessment of growth in addition to continued monochorionic twin surveillance has been scheduled here in 2 weeks. Return to primary provider for continued care. Thank-you for the opportunity to participate in the care of this patient. If you have questions regarding today's evaluation or if we can be of further service, please contact the [facility]. anomalies may be present but not detected I spent a total of 10 minutes on the date of this encounter including preparing to see the patient (reviewing medical records/tests), in direct [id number]-[id number] contact with the patient during her visit with the majority spent counseling and discussing the plan of care and documenting the visit in the electronic medical record. Please see note for details. Procedure Note Angelica Wright MD - 11/07/2023 Comp Follow Up ----- Pat. Name: KYARA ALVAREZ Study Date: 11/07/2023 1:25pm Pat. NO: [id number] Referring MD: RAYA SHAH Site: Program Mgr: Sindhu Maurer RDMS : 2000 Age: 23 ----- INDICATION ----- Reevaluate growth, Twin A - EFW 12% on previous ultrasound Monochorionic, Diamniotic Twin gestation METHOD ----- Transabdominal ultrasound examination. View: Suboptimal view: limited byfetal position ----- Twin . Number of fetuses: 2. Monochorionic-diamniotic DATING ----- DateDetailsGest. age FERNANDO LMP 04/29/2023ycle: irregular cycle27 w + 3 d 02/03/2024 Previous U/S 07/18/2023 GA, GA10 w + 3 d26 w + 3 d 02/10/2024 U/S Fetus 1 11/07/2023 basedupon AC, BPD, Femur, HC 25w + 4 d 02/16/2024 U/S Fetus 2based upon AC, BPD, Femur, HC25 w + 6 d 02/14/2024 Assigned dating based on ultrasound (GA), selected on11/07/2023 26w + 3 d 02/10/2024 Fetus 1: GENERAL EVALUATION ----- Cardiac activity present. FHR 148 bpm. movements: visualized.Presentation: cephalic, maternal right, presenting Placenta: Anterior, thin dividing membrane Umbilical cord: 3 vessel cord Amniotic fluid: Amount of AF: normal. MVP 6.9 cm Fetus 2: GENERAL EVALUATION ----- Cardiac activity present. FHR 161 bpm. movements: visualized.Presentation: transverse with head to maternal right, superior, onmaternal right Placenta: Anterior, thin dividing membrane Umbilical cord: 3 vessel cord Amniotic fluid: Amount of AF: normal. MVP 7.4 cm Fetus 1: BIOMETRY ----- BPD 64.1mm 25w 6dHadlock OFD 84.5mm 25w 3dNicolaides HC 238.1mm 25w 6dHadlock Cerebellum tr 29.8mm 26w 3dNicolaides AC 216.5mm 26w 1d 32%Hadlock Femur 44.0mm 24w 3dHadlock Humerus 41.9mm 25w 2dJeanty Weight Calculation: EFW 818g 11%Hadlock EFW (lb,oz) 1 lb 13oz EFW by Hadlock([id number]) EFW discordance 8.2% Head / Face / Neck Biometry: Valve Maker 5.2mm CM 4.2mm Fetus 2: BIOMETRY ----- BPD 63.7mm 25w 5dHadlock OFD 87.1mm 26w 0dNicolaides HC 241.1mm 26w 1dHadlock Cerebellum tr 30.0mm 26w 4dNicolaides AC 226.7mm 27w 0d 61%Hadlock Femur 44.7mm 24w 5dHadlock Weight Calculation: EFW 891g 26%Hadlock EFW (lb,oz) 1 lb 15oz EFW by Hadlock([id number]) EFW discordance 8.2% Head / Face / Neck Biometry: Valve Maker 7.7mm CM 4.0mm Fetus 1: ANATOMY ----- The following structures appear normal: Head / Neck Cranium. Head size. Head shape.Lateral ventricles. Midline falx. Cavum septi pellucidi. Cerebellum.Cisterna magna. Thalami. Face Lips. Profile. Nose. Heart / Thorax RVOT view. LVOT view. 8-lvzqux-ohhjohvsjlb. Diaphragm. Abdomen Stomach. Kidneys. Bladder. Genitals. Spine Cervical spine. Thoracic spine.Lumbar spine. Sacral spine. The following structures were documented previously: Heart / Thorax 4-chamber view. sex: female. Fetus 2: ANATOMY ----- The following structures appear normal: Head / Neck Cranium. Head size. Head shape.Lateral ventricles. Midline falx. Cavum septi pellucidi. Cerebellum.Cisterna magna. Thalami. Face Lips. Nose. Heart / Thorax RVOT view. LVOT view. 0-bgobtc-bzciyijcape. Diaphragm. Abdomen Stomach. Kidneys. Bladder. Spine Cervical spine. Thoracic spine.Lumbar spine. Sacral spine. The following structures were documented previously: Face Profile. Heart / Thorax 4-chamber view. sex: female. Fetus 1: DOPPLER ----- Umbilical Artery: normal PI 1.3290% Kunal HR 153bpm Mid Cerebral Artery: normal PS 34.63cm/s PS 1.01MoM Fetus 2: DOPPLER ----- Umbilical Artery: normal PI 0.9323% Kunal HR 183bpm Mid Cerebral Artery: normal PS 39.86cm/s PS 1.16MoM MATERNAL STRUCTURES ----- Cervix Suboptimal Right Ovary Not examined Left Ovary Not examined RECOMMENDATION ----- We discussed the findings on today's ultrasound with the patient. Given EFW at the lower end of normal in twin A, a repeat assessment offetal growth in addition to continued monochorionic twin surveillance hasbeen scheduled here in 2 weeks. Return to primary provider for continued care. Thank-you for the opportunity to participate in the care of this patient.If you have questions regarding today's evaluation or if we can be offurther service, please contact the [facility]. anomalies may be present but not detected I spent a total of 10 minutes on the date of this encounter includingpreparing to see the patient (reviewing medical records/tests), in [id number]-[id number] contact with the patient during her visit with the majority spent counseling and discussingthe plan of care and documenting the visit in the electronic medicalrecord. Please see note for details. IMPRESSION ----- Monochorionic diamniotic twin gestation at 26w 3d gestational age. Fetus 1 1. No anomalies commonly detected by ultrasound were identified inthe limited anatomic survey within the limits of prenatalultrasound. 2. Growth parameters and estimated weight were consistent withgestational age predicted by assigned FERNANDO. 3. The amniotic fluid volume appeared normal. A normal bladder wasvisualized. 4. The umbilical artery Doppler studies were within normal limits. 5. The middle cerebral artery Doppler studies were within normal limits. Fetus 2 1. No anomalies commonly detected by ultrasound were identified inthe limited anatomic survey within the limits of prenatalultrasound. 2. Growth parameters and estimated weight were consistent withgestational age predicted by assigned FERNANDO. The inter-twin discordance was8.6%. 3. The amniotic fluid volume appeared normal. A normal bladder wasvisualized. 4. The umbilical artery Doppler studies were within normal limits. 5. The middle cerebral artery Doppler studies were within normal limits. Today's ultrasound does not support a diagnosis of twin twin transfusionsyndrome or twin anemia polycythemia syndrome. Raya Dickens MD [facility] US ORDERAB LES * ECHO - TWIN B COMPLETE (10/10/2023 1:35 PM CDT) Anatomical Region Laterality Modality Echocardiography 10/10/2023 12:0 8 PM CDT Narrative 10/10/2023 2:59 PM CDT [id number]^RILEY^VANITA ? Study ID: [id number] ?[facility] ?[facility] ?[address] ?[place] [address] ? Echocardiogram Name: KYARA ALVAREZ Study Date: 10/10/2023 12:08 PM ? Patient Location: [facility] Gender: Female ?Patient Class: Outpatient : 2000 ? Age: 22 yrs Ordering Provider: VANITA LIN Referring Provider: VANITA LIN Performed By: Doris Black Physician: Esequiel Grier MD Reason For Study: 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 Data: Number of fetuses: This is a ríos gestation. Due date: 02/10/2024. Gestational age: 22w3d. Delivery at: Undecided. Specific Indication: echocardiogram performed for monochorionic diamniotic twins. CONCLUSIONS Fetus 1. Normal cardiac anatomy. Normal intracardiac connections. Normal right and left ventricular size and function. Normal right ventricular Tei index at 0.25. Normal left ventricular Tei index at 0.27. No pericardial effusion. The results of the echocardiogram were explained to the patient. She is aware that the study was within normal limits with no major cardiac abnormalities. She is aware of the general limitations of echocardiography. No additional echocardiograms are recommended. No cardiac follow-up is required. Technical Information: A complete two dimensional, spectral and color Doppler echocardiogram is performed. The study quality is good. position and segmental anatomy: The fetus in breech position. The heart is in left chest. The cardiac apex points towards the left. There is normal atrial arrangement, with concordant atrioventricular and ventriculoarterial connections. The abdominal aorta is to the left of the spine. There is a left sided stomach. Systemic and pulmonary veins: The systemic venous return is normal. At least one right and one left pulmonary veins are seen returning to the left atrium. Atria and atrial septum: Normal right atrial size. The left atrium is normal in size. The flap of the foramen ovale opens in to the left atrium. There is laminar kpmza-kh-grzt shunting across the foramen ovale. Atrioventricular valves: The tricuspid valve is normal in appearance and motion. There is no tricuspid insufficiency. The mitral valve is normal in appearance and motion. There is no mitral valve insufficiency. Ventricles and ventricular septum: Normal right ventricular size. Normal right ventricular systolic function. Normal right ventricular Tei index at 0.25. Normal left ventricular size. Normal left ventricular systolic function. Normal left ventricular Tei index at 0.27. No obvious ventricular level shunting. Outflows tracts: Normal great artery relationship. The right ventricular outflow tract is normal in caliber. The pulmonary valve has normal appearance and motion. There is normal flow across the pulmonary valve. There is unobstructed flow through the left ventricular outflow tract. The aortic valve has normal appearance and motion. There is normal flow across the aortic valve. Great arteries: The main pulmonary artery has normal appearance. There is unobstructed flow in the main pulmonary artery. The pulmonary artery bifurcation is normal. There is unobstructed flow in both branch pulmonary arteries. The ductus arteriosus has normal appearance with normal antegrade flow. There is unobstructed antegrade flow in the ascending aorta. The aortic arch appears normal. There is unobstructed antegrade flow in the aortic arch. Effusions and extracardiac findings: No pericardial effusion. No hydrops. cardiac rhythm: heart rate is regular at 150 bpm. Doppler: There is normal flow in the ductus venosus, umbilical artery and umbilical vein. echocardiography cannot rule out small atrial or ventricular septal defects, persistent ductus arteriosus, mild coarctation of the aorta, partial anomalous pulmonary venous return, minor anatomic valve anomalies or coronary artery anomalies. Time Measurements LVET: 0.18 sec RVET: 0.19 sec Doppler Measurements & Calculations LV Tei Index: 0.27 ? RV Tei Index: 0.25 MV Close to Open: 0.23 sec ? TV Close to Open: 0.24 sec Eugenio Physician: ?Esequiel Grier MD 10/10/2023 02:59 PM Procedure Note Esequiel Grier MD - 10/10/2023 [id number] REPLACED BY [facility] [id number]^RILEY^VANITA Study ID:[id number] [facility] [address] [address] Echocardiogram Name: KYARA ALVAREZ Study Date: 10/10/2023 12:08 PM Patient Location: [facility] Gender: Female Patient Class:Outpatient : 2000 Age: 22 yrs Ordering Provider: VANITA LIN Referring Provider: VANITA LIN Performed By: Doris Black Physician: Esequiel Grier MD Reason For Study: Monochorionic diamniotic twin gestation in [facility] Data: Number of fetuses: This is a ríos gestation. Duedate: 02/10/2024. Gestational age: 22w3d. Delivery at: Undecided. Specific Indication: echocardiogram performed formonochorionic diamniotic twins. CONCLUSIONS Fetus 1. Normal cardiac anatomy. Normal intracardiacconnections. Normal right and left ventricular size and function. Normal rightventricular Tei index at 0.25. Normal left ventricular Tei index at 0.27. Nopericardial effusion. The results of the echocardiogram were explained to the patient. Sheis aware that the study was within normal limits with no major cardiac abnormalities. She is aware of the general limitations of echocardiography. No additional echocardiograms are recommended.No cardiac follow-up is required. Technical Information: A complete two dimensional, spectral and color Doppler fetalechocardiogram is performed. The study quality is good. position and segmental anatomy: The fetus in breech position. The heart is in left chest. The cardiacapex points towards the left. There is normal atrial arrangement, withconcordant atrioventricular and ventriculoarterial connections. The abdominal aortais to the left of the spine. There is a left sided stomach. Systemic and pulmonary veins: The systemic venous return is normal. At least one right and one left pulmonary veins are seen returning to the left atrium. Atria and atrial septum: Normal right atrial size. The left atrium is normal in size. The flap ofthe foramen ovale opens in to the left atrium. There is xwyiahzpajuz-mb-eyxo shunting across the foramen ovale. Atrioventricular valves: The tricuspid valve is normal in appearance and motion. There is notricuspid insufficiency. The mitral valve is normal in appearance and motion. Thereis no mitral valve insufficiency. Ventricles and ventricular septum: Normal right ventricular size. Normal right ventricular systolicfunction. Normal right ventricular Tei index at 0.25. Normal left ventricularsize. Normal left ventricular systolic function. Normal left ventricular Teiindex at 0.27. No obvious ventricular level shunting. Outflows tracts: Normal great artery relationship. The right ventricular outflow tract is normal in caliber. The pulmonary valve has normal appearance and motion.There is normal flow across the pulmonary valve. There is unobstructed flowthrough the left ventricular outflow tract. The aortic valve has normal appearanceand motion. There is normal flow across the aortic valve. Great arteries: The main pulmonary artery has normal appearance. There is unobstructedflow in the main pulmonary artery. The pulmonary artery bifurcation is normal.There is unobstructed flow in both branch pulmonary arteries. The ductusarteriosus has normal appearance with normal antegrade flow. There is unobstructed antegrade flow in the ascending aorta. The aortic arch appears normal.There is unobstructed antegrade flow in the aortic arch. Effusions and extracardiac findings: No pericardial effusion. No hydrops. cardiac rhythm: heart rate is regular at 150 bpm. Doppler: There is normal flow in the ductus venosus, umbilical artery andumbilical vein. echocardiography cannot rule out small atrial or ventricularseptal defects, persistent ductus arteriosus, mild coarctation of the aorta,partial anomalous pulmonary venous return, minor anatomic valve anomalies orcoronary artery anomalies. Time Measurements LVET: 0.18 sec RVET: 0.19 sec Doppler Measurements & Calculations LV Tei Index: 0.27 RV Tei Index: 0.25 MV Close to Open: 0.23 sec TV Close to Open: 0.24 sec Reading Physician: Esequiel Grier MD 10/10/2023 02:59 PM Vanita Lin MD [facility] PEDS ECHO ORDERAB LES * ECHO COMPLETE (10/10/2023 1:35 PM CDT) Anatomical Region Laterality Modality Echocardiography 10/10/2023 12:3 4 PM CDT Narrative 10/10/2023 3:00 PM CDT [id number]^RILEY^VANITA ? Study ID: [id number] ?[facility] ?[facility] ?[address] ?[place] [address] ? Echocardiogram Name: KYARA ALVAREZ Study Date: 10/10/2023 12:34 PM ? Patient Location: [facility] Gender: Female ?Patient Class: Outpatient : 2000 ? Age: 22 yrs Ordering Provider: VANITA LIN Referring Provider: VANITA LIN Performed By: Doris Black Physician: Esequiel Grier MD Reason For Study: 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 Data: Number of fetuses: This is a ríos gestation. Due date: 02/10/2024. Gestational age: 22w3d. Delivery at: Undecided. Specific Indication: echocardiogram performed for monochorionic diamniotic twins. CONCLUSIONS Fetus 2. Normal cardiac anatomy. Normal intracardiac connections. Normal right and left ventricular size and function. Normal left ventricular Tei index at 0.42. Normal right ventricular Tei index at 0.40. No pericardial effusion. The results of the echocardiogram were explained to the patient. She is aware that the study was within normal limits with no major cardiac abnormalities. She is aware of the general limitations of echocardiography. No additional echocardiograms are recommended. No cardiac follow-up is required. Technical Information: The study quality is good. A complete two dimensional, spectral and color Doppler echocardiogram is performed. position and segmental anatomy: The fetus in transverse position. The heart is in left chest. The cardiac apex points towards the left. There is normal atrial arrangement, with concordant atrioventricular and ventriculoarterial connections. The abdominal aorta is to the left of the spine. There is a left sided stomach. Systemic and pulmonary veins: The systemic venous return is normal. Color flow demonstrates flow from at least one pulmonary vein entering the left atrium. Atria and atrial septum: Normal right atrial size. The left atrium is normal in size. The flap of the foramen ovale opens in to the left atrium. There is laminar dajrx-gs-rwti shunting across the foramen ovale. Atrioventricular valves: The tricuspid valve is normal in appearance and motion. There is no tricuspid insufficiency. The mitral valve is normal in appearance and motion. There is no mitral valve insufficiency. Ventricles and ventricular septum: Normal right ventricular size. Normal right ventricular systolic function. Normal right ventricular Tei index at 0.40. Normal left ventricular size. Normal left ventricular systolic function. Normal left ventricular Tei index at 0.42. No obvious ventricular level shunting. Outflows tracts: Normal great artery relationship. The right ventricular outflow tract is normal in caliber. The pulmonary valve has normal appearance and motion. There is normal flow across the pulmonary valve. There is unobstructed flow through the left ventricular outflow tract. The aortic valve has normal appearance and motion. There is normal flow across the aortic valve. Great arteries: The main pulmonary artery has normal appearance. There is unobstructed flow in the main pulmonary artery. The pulmonary artery bifurcation is normal. There is unobstructed flow in both branch pulmonary arteries. The ductus arteriosus has normal appearance with normal antegrade flow. There is unobstructed antegrade flow in the ascending aorta. The aortic arch appears normal. There is unobstructed antegrade flow in the aortic arch. Effusions and extracardiac findings: No pericardial effusion. No hydrops. cardiac rhythm: heart rate is regular at 158 bpm. Doppler: There is normal flow in the ductus venosus, umbilical artery and umbilical vein. echocardiography cannot rule out small atrial or ventricular septal defects, persistent ductus arteriosus, mild coarctation of the aorta, partial anomalous pulmonary venous return, minor anatomic valve anomalies or coronary artery anomalies. MMode/2D Measurements & Calculations zzPhys Time: 0.38 sec Time Measurements LVET: 0.15 sec RVET: 0.17 sec Doppler Measurements & Calculations LV Tei Index: 0.42 ? RV Tei Index: 0.40 MV Close to Open: 0.22 sec ? TV Close to Open: 0.23 sec Reading Physician: ?Esequiel Grier MD 10/10/2023 03:00 PM Procedure Note Esequiel Grier MD - 10/10/2023 [id number]^MANUEL Study ID:[id number] [facility] [address] [address] Echocardiogram Name: KYARA ALVAREZ Study Date: 10/10/2023 12:34 PM Patient Location: [facility] Gender: Female Patient Class:Outpatient : 2000 Age: 22 yrs Ordering Provider: VANITA LIN Referring Provider: VANITA LIN Performed By: Doris Black Physician: Esequiel Grier MD Reason For Study: Monochorionic diamniotic twin gestation in firsttrimeer Data: Number of fetuses: This is a ríos gestation. Duedate: 02/10/2024. Gestational age: 22w3d. Delivery at: Undecided. Specific Indication: echocardiogram performed formonochorionic diamniotic twins. CONCLUSIONS Fetus 2. Normal cardiac anatomy. Normal intracardiacconnections. Normal right and left ventricular size and function. Normal leftventricular Tei index at 0.42. Normal right ventricular Tei index at 0.40. Nopericardial effusion. The results of the echocardiogram were explained to the patient. Sheis aware that the study was within normal limits with no major cardiac abnormalities. She is aware of the general limitations of echocardiography. No additional echocardiograms are recommended.No cardiac follow-up is required. Technical Information: The study quality is good. A complete two dimensional, spectral andcolor Doppler echocardiogram is performed. position and segmental anatomy: The fetus in transverse position. The heart is in left chest. The cardiacapex points towards the left. There is normal atrial arrangement, withconcordant atrioventricular and ventriculoarterial connections. The abdominal aortais to the left of the spine. There is a left sided stomach. Systemic and pulmonary veins: The systemic venous return is normal. Color flow demonstrates flow fromat least one pulmonary vein entering the left atrium. Atria and atrial septum: Normal right atrial size. The left atrium is normal in size. The flap ofthe foramen ovale opens in to the left atrium. There is mnnhetksuvka-sx-ilka shunting across the foramen ovale. Atrioventricular valves: The tricuspid valve is normal in appearance and motion. There is notricuspid insufficiency. The mitral valve is normal in appearance and motion. Thereis no mitral valve insufficiency. Ventricles and ventricular septum: Normal right ventricular size. Normal right ventricular systolicfunction. Normal right ventricular Tei index at 0.40. Normal left ventricularsize. Normal left ventricular systolic function. Normal left ventricular Teiindex at 0.42. No obvious ventricular level shunting. Outflows tracts: Normal great artery relationship. The right ventricular outflow tract is normal in caliber. The pulmonary valve has normal appearance and motion.There is normal flow across the pulmonary valve. There is unobstructed flowthrough the left ventricular outflow tract. The aortic valve has normal appearanceand motion. There is normal flow across the aortic valve. Great arteries: The main pulmonary artery has normal appearance. There is unobstructedflow in the main pulmonary artery. The pulmonary artery bifurcation is normal.There is unobstructed flow in both branch pulmonary arteries. The ductusarteriosus has normal appearance with normal antegrade flow. There is unobstructed antegrade flow in the ascending aorta. The aortic arch appears normal.There is unobstructed antegrade flow in the aortic arch. Effusions and extracardiac findings: No pericardial effusion. No hydrops. cardiac rhythm: heart rate is regular at 158 bpm. Doppler: There is normal flow in the ductus venosus, umbilical artery andumbilical vein. echocardiography cannot rule out small atrial or ventricularseptal defects, persistent ductus arteriosus, mild coarctation of the aorta,partial anomalous pulmonary venous return, minor anatomic valve anomalies orcoronary artery anomalies. MMode/2D Measurements & Calculations zzPhys Time: 0.38 sec Time Measurements LVET: 0.15 sec RVET: 0.17 sec Doppler Measurements & Calculations LV Tei Index: 0.42 RV Tei Index: 0.40 MV Close to Open: 0.22 sec TV Close to Open: 0.23 sec Reading Physician: Esequiel Grier MD 10/10/2023 03:00 PM Vanita Lin MD CV PEDS ECHO ORDERAB LES * Spinal Block (09/27/2023 9:20 AM CDT) Narrative Chapo Rutherford MD - 09/27/2023 9:20 AM CDT Chapo Rutherford MD ? 09/27/2023 ??9:39 AM Intrathecal injection Procedure Note Pre-Procedure Staff - ? Anesthesiologist: ??Agustina Dinh MD ? Resident/Fellow: Chapo Rutherford MD ? Performed By: resident and anesthesiologist ? Location: OR ? Procedure Start/Stop Times: 09/27/2023 9:20 AM and 09/27/2023 9:29 AM ? Pre-Anesthestic Checklist: patient identified, IV checked, risks and benefits discussed, informed consent, monitors and equipment checked, pre-op evaluation, at physician/surgeon's request and post-op pain management Timeout: ? Correct Patient: Yes ? Correct Procedure: Yes ? Correct Site: Yes ? Correct Position: Yes Procedure Documentation Procedure: intrathecal injection ? Patient Position: sitting ? Skin prep: Chloraprep ? Insertion Site: L3-4. (midline approach). ? Needle Gauge: 25. ? Needle Length (Inches): 3.5 ? Spinal Needle Type: Pencan ? Introducer used ? Introducer: 20 G ? # of attempts: 2 and ??# of redirects: ??1 Assessment/Narrative ? Sensory Level: T5 ? CSF fluid: clear. Medication(s) Administered 0.75% Hyperbaric Bupivacaine (Intrathecal) - Intrathecal 1.4 mL - 09/27/2023 9:25:00 AM Medication Administration Time: 09/27/2023 9:20 AM FOR [facility] ([facility]) ONLY: ?? Pain Team Contact information: please page the Pain Team Via [employer]. Search Pain. During daytime hours, please page the attending first. At night please page the resident first. Agustina Dinh MD [place] ANESTHESIA * (ABNORMAL) UA with Microscopic (09/26/2023 5:51 PM CDT) Color Urine Light Yellow Colorless, Straw, Light Yellow, Yellow 09/26/2023 6:37 PM CDT [facility] Appearance Urine Clear Clear 09/26/19 6:37 PM CDT [facility] Glucose Urine Negative Negative mg/dL 09/26/2023 6:37 PM CDT [facility] Bilirubin Urine Negative Negative 6:37 PM CDT [facility] Ketones Urine 40(A) Negative mg/dL 09/26/2023 6:37 PM CDT [facility] Specific [place] Urine 1.018 1.003 - 1.035 09/26/2023 6:37 PM CDT [facility] Blood Urine Negative Negative 09/26/2023 6:37 PM CDT [facility] pH Urine 6.0 5.0 - 7.0 09/26/2023 6:37 PM CDT [facility] Protein Albumin Urine Negative Negative mg/dL 09/26/2023 6:37 PM CDT [facility] Urobilinogen Urine Normal Normal, 2.0 mg/dL 09/26/2023 6:37 PM CDT [facility] Nitrite Urine Negative Negative 09/26/2023 6:37 PM CDT [facility] Leukocyte Esterase Urine Moderate(A) Negative 09/26/2023 6:37 PM CDT [facility] Mucus Urine Present(A) None Seen /LPF 09/26/2023 6:37 PM CDT [facility] RBC Urine 1 <=2 /HPF 09/26/2023 6:37 PM CDT [facility] WBC Urine 4 <=5 /HPF 09/26/2023 6:37 PM CDT [facility] Squamous Epithelials Urine 8(H) <=1 /HPF 09/26/2023 6:37 PM CDT [facility] Transitional Epithelials Urine <1 <=1 /HPF 09/26/2023 6:37 PM CDT [facility] Urine MID-STREAM URINE SPECIMEN / Unknown Non-blood Collection / Unknown 09/26/2023 5:51 PM CDT 09/26/2023 6:05 PM CDT Socorro Danielson MD LAB - URINE ORDERABLES [facility] [address] [place] [address] * Urine Culture (09/26/2023 5:51 PM CDT) Culture No Growth XIOMARA 09/28/2023 6:20 AM CDT [facility] Urine MID-STREAM URINE SPECIMEN / Unknown Non-blood Collection / Unknown 09/26/2023 5:51 PM CDT 09/26/2023 6:04 PM CDT Socorro Danielson MD LAB - MICRO GENERAL ORDERABLES [facility] Inf. Diseases Diag. Lab [address] [facility] [place] [address] * (ABNORMAL) Wet prep (09/26/2023 5:50 PM CDT) Trichomonas Absent Absent XIOMARA 09/26/2023 6:28 PM CDT [facility] Yeast Absent Absent XIOMARA 09/26/2023 6:28 PM CDT [facility] Clue Cells Absent Absent XIOMARA 09/26/2023 6:28 PM CDT [facility] WBCs/high power field 1+(A) None XIOMARA 09/26/2023 6:28 PM CDT [facility] Swab VAGINAL STRUCTURE / Unknown Non-blood Collection / Unknown 09/26/2023 5:50 PM CDT 09/26/2023 6:03 PM CDT Socorro Danielson MD LAB - MICRO GENERAL ORDERABLES [facility] [address] [place] [address] * Neisseria gonorrhoea PCR (09/26/2023 5:50 PM CDT) [facility] Neisseria gonorrhoeae Negative Negative 09/27/2023 11:37 AM CDT [facility] Comment:Negative for N. gono rrhoeae rRNA by certified recreational therapist mediated amplification. A negative result by certified recreational therapist mediated amplification does not preclude the presence of C. trachomatis infection because results are dependent on proper and adequate collection, absence of inhibitors and sufficient rRNA to be detected. Swab VAGINAL STRUCTURE / Unknown Non-blood Collection / Unknown 09/26/2023 5:50 PM CDT 09/26/2023 6:03 PM CDT Socorro Danielson MD LAB - MICRO GENERAL ORDERABLES Performing Organization Address City/[facility]/ZIP Co de Phone Number [facility] Inf. Diseases Diag. Lab [address] [facility], [address] [place] [phone] * Chlamydia trachomatis PCR (09/26/2023 5:50 PM CDT) [facility] Chlamydia trachomatis Negative Negative 09/27/2023 11:37 AM CDT [facility] Comment:A negative result by certified recreational therapist mediated amplification does not preclude the presence of C. trachomatis infection because results are dependent on proper and adequate collection, absence of inhibitors and sufficient rRNA to be detected. Swab VAGINAL STRUCTURE / Unknown Non-blood Collection / Unknown 09/26/2023 5:50 PM CDT 09/26/2023 6:03 PM CDT Socorro Danielson MD LAB - MICRO GENERAL ORDERABLES IDD LABORATORY [facility] Inf. Diseases Diag. Lab [address] [facility], Room [address] [id number] * Extra Serum Separator Tube (SST) (09/26/2023 5:15 PM CDT) Hold Specimen [facility] 09/26/2023 6:32 PM CDT UR LABORATORY Blood STRUCTURE OF RIGHT UPPER LIMB / Unknown Venipuncture / Unknown 09/26/2023 5:15 PM CDT 09/26/2023 5:24 PM CDT Heidi Swain MD LAB - BLOOD ORDERA BLES UR LABORATORY [facility] [address] [place] [address], Room [address] * Extra Green Top ([place] Heparin) Tube (09/26/2023 5:15 PM CDT) Hold Specimen [facility] 09/26/2023 6:32 PM CDT UR LABORATORY Blood STRUCTURE OF RIGHT UPPER LIMB / Unknown Venipuncture / Unknown 09/26/2023 5:15 PM CDT 09/26/2023 5:25 PM CDT Heidi Swain MD LAB - BLOOD ORDERA BLES Performing Organization Address City/[facility] Co de Phone Number UR LABORATORY [facility] [address] [place] [address], Room [address] * Adult Type and Screen (09/26/2023 5:15 PM CDT) ABO/RH(D) A POS 09/26/2023 4:59 PM CDT UR BLOOD BANK Antibody Screen Negative Negative 09/26/2023 4:59 PM CDT UR BLOOD BANK SPECIMEN EXPIRATION DATE [id number] 09/26/2023 4:59 PM CDT UR BLOOD BANK Blood STRUCTURE OF RIGHT UPPER LIMB / Unknown Venipuncture / Unknown 09/26/2023 5:15 PM CDT 09/26/2023 5:20 PM CDT Socorro Danielson MD LAB - BLOOD BANK TEST ORDER Performing Organization Address City/[facility]/ZIP Co de Phone Number UR BLOOD BANK [facility] [address] [facility], [address] [place] [address] * (ABNORMAL) CBC with platelets (09/26/2023 5:15 PM CDT) WBC Count 11.7(H) 4.0 - 11.0 10e3/uL 09/26/2023 5:23 PM CDT UR LABORATORY RBC Count 3.40(L) 3.80 - 5.20 10e6/uL 09/26/2023 5:23 PM CDT UR LABORATORY Hemoglobin 10.3(L) 11.7 - 15.7 g/dL 09/26/2023 5:23 PM CDT UR LABORATORY Hematocrit 30.5(L) 35.0 - 47.0 % 09/26/2023 5:23 PM CDT UR LABORATORY MCV 90 78 - 100 fL 09/26/2023 5:23 PM CDT UR LABORATORY MCH 30.3 26.5 - 33.0 pg 09/26/2023 5:23 PM CDT UR LABORATORY MCHC 33.8 31.5 - 36.5 g/dL 09/26/2023 5:23 PM CDT UR LABORATORY RDW 13.4 10.0 - 15.0 % 09/26/2023 5:23 PM CDT UR LABORATORY Platelet Count 261 150 - 450 10e3/uL 09/26/2023 5:23 PM CDT UR LABORATORY Blood STRUCTURE OF RIGHT UPPER LIMB / Unknown Venipuncture / Unknown 09/26/2023 5:15 PM CDT 09/26/2023 5:20 PM CDT Socorro Danielson MD LAB - BLOOD ORDERABLES UR LABORATORY [facility] [address] [facility], [address] [place] [address], [facility] * MFM Twins US Comprehensive (09/26/2023 3:21 PM CDT) Anatomical Region Laterality Modality Ultrasound 09/26/2023 1:31 PM CDT Impressions 09/26/2023 5:10 PM CDT IMPRESSION ----- Monochorionic diamniotic twin gestation at 20w 3d gestational age. Fetus 1 1. No anomalies commonly detected by ultrasound were identified in the detailed anatomic survey within the limits of ultrasound. 2. Growth parameters and estimated weight were consistent with gestational age predicted by assigned FERNANDO. 3. The amniotic fluid volume appeared normal. A normal bladder was visualized. 4. The umbilical artery Doppler studies were within normal limits. 5. The middle cerebral artery Doppler studies were within normal limits. Fetus 2 1. No anomalies commonly detected by ultrasound were identified in the detailed anatomic survey within the limits of ultrasound. 2. Growth parameters and estimated weight were consistent with gestational age predicted by assigned FERNANDO. The inter-twin discordance was within normal limits. 3. The amniotic fluid volume appeared normal. A normal bladder was visualized. 4. The umbilical artery Doppler studies demonstrate increased resistance to flow. 5. The middle cerebral artery Doppler studies were within normal limits. Today's ultrasound does not support a diagnosis of twin twin transfusion syndrome or twin anemia polycythemia syndrome. Transvaginal ultrasound was performed in conjunction with a transabdominal ultrasound to better visualize the cervix. Cervical funneling is noted with a shortened residual length of 8 mm. Narrative 09/26/2023 5:10 PM CDT ?Comprehensive ----- Pat. Name: KYARA ALVAREZ ? Study Date: ??09/26/2023 1:31pm Pat. NO: ??[id number] ?Referring ??: RAYA SHAH Site: ? Program Mgr: Christopher Street RDMS : ??2000 ?Age: ?? 22 ----- INDICATION ----- Monochorionic, Diamniotic Twin gestation. METHOD ----- Transabdominal ultrasound examination. Transvaginal ultrasound examination was required to adequately complete the exam. View: Sufficient. ----- Twin . Number of fetuses: 2. Monochorionic-diamniotic DATING ----- ? Date ?Details ?Gest. age ?FERNANDO LMP ?04/29/2023 ?Cycle: irregular cycle ? 21 w + 3 d ? 02/03/2024 Previous U/S ?07/18/2023 ?GA, GA 10 w + 3 d ?20 w + 3 d ? 02/10/2024 U/S Fetus 1 ? 09/26/2023 ? based upon AC, BPD, Femur, HC ?20 w + 0 d ? 02/13/2024 U/S Fetus 2 ?based upon AC, BPD, Femur, HC ?20 w + 3 d ? 02/10/2024 Assigned dating ?based on ultrasound (GA), selected on 08/29/2023 ?20 w + 3 d ? 02/10/2024 Fetus 1: GENERAL EVALUATION ----- Cardiac activity present. FHR 155 bpm. movements: present. Presentation: breech, maternal right. Placenta: Anterior, No Previa, > 2 cm from internal os Umbilical cord: 3 vessel cord, marginal insertion Amniotic fluid: Amount of AF: normal. MVP 6.8 cm Fetus 2: GENERAL EVALUATION ----- Cardiac activity present. FHR 149 bpm. movements: present. Presentation: cephalic, maternal left. presenting today. Placenta: Anterior Umbilical cord: 3 vessel cord Amniotic fluid: Amount of AF: normal. MVP 6.0 cm Fetus 1: BIOMETRY ----- BPD ? 46.5 ?mm ? 20w 0d ?Hadlock OFD ? 60.6 ?mm ? 19w 5d ?Nicolaides HC ? 170.8 ?mm ? 19w 5d ? Hadlock Cerebellum tr ?20.4 ?mm ? 19w 3d ? Nicolaides Nuchal fold ?3.8 ? mm AC ? 141.4 ?mm ? 19w 4d ?17% ?Hadlock Femur ?33.2 ?mm ? 20w 3d ? Hadlock Humerus ? 28.5 ? mm ?19w 2d ?Celestina Weight Calculation: EFW ?320 ? g ? 20% ?Hadlock EFW (lb,oz) ?0 lb 11 ? oz EFW by ?Hadlock ([id number]) EFW discordance ?13.8 ?% Head / Face / Neck Biometry: Valve Maker ?5.3 ? mm CM ? 2.4 ? mm Nasal bone ? 5.9 ?mm Fetus 2: BIOMETRY ----- BPD ? 46.2 ?mm ? 20w 0d ?Hadlock OFD ? 62.0 ?mm ? 20w 0d ?Nicolaides HC ? 172.9 ?mm ? 19w 6d ? Hadlock Cerebellum tr ?19.7 ?mm ? 18w 6d ? Nicolaides Nuchal fold ?4.4 ? mm AC ? 155.0 ?mm ? 20w 5d ?52% ?Hadlock Femur ?34.9 ?mm ? 21w 0d ? Hadlock Humerus ? 30.9 ? mm ?20w 2d ?Celestina Weight Calculation: EFW ?371 ? g ? 59% ?Hadlock EFW (lb,oz) ?0 lb 13 ? oz EFW by ?Hadlock ([id number]) EFW discordance ?13.8 ?% Head / Face / Neck Biometry: Valve Maker ?6.9 ? mm CM ? 4.3 ? mm Nasal bone ? 5.8 ?mm Fetus 1: ANATOMY ----- The following structures appear normal: Head / Neck ? Cranium. Head size. Head shape. Lateral ventricles. Choroid plexus. Midline falx. Cavum septi pellucidi. Cerebellum. Cisterna magna. ? Parenchyma. Thalami. Vermis. ? Neck. Nuchal fold. Face ? Lips. Profile. Nose. Maxilla. Mandible. Orbits. Lens. Heart / Thorax ?4-chamber view. RVOT view. LVOT view. 3-vessel view. 4-xpjieq-vddcqad view. Situs. Aortic arch view. Bicaval view. [...] leg. Right foot. Left leg. Left foot. sex: female. Fetus 2: ANATOMY ----- The following structures appear normal: Head / Neck ? Cranium. Head size. Head shape. Lateral ventricles. Choroid plexus. Midline falx. Cavum septi pellucidi. Cerebellum. Cisterna magna. ? Parenchyma. Thalami. Vermis. ? Neck. Nuchal fold. Face ? Lips. Profile. Nose. Maxilla. Mandible. Orbits. Lens. Heart / Thorax ?4-chamber view. RVOT view. LVOT view. 3-vessel view. 3-wthtmg-yglcvtq view. Situs. Aortic arch view. Bicaval view. Ductal arch view. Superior ? vena cava. Inferior vena cava. Cardiac position. Cardiac size. ? Right lung. Left lung. Diaphragm. Abdomen ? Abdom. wall. Cord insertion. Stomach. Kidneys. Bladder. Liver. Bowel. Genitals. Spine ?Cervical spine. Thoracic spine. Lumbar spine. Sacral spine. Extremities / Skeleton ?Arms. Right hand. Left hand. Legs. Right foot. Left foot. sex: female. Fetus 1: DOPPLER ----- Umbilical Artery: normal. Sampling site: midcord PI ? 1.47 ? 85% ? Kunal HR ? 151 ? bpm Mid Cerebral Artery: normal PS ? 23.94 ?cm/s PS ? 0.92 ?MoM Fetus 2: DOPPLER ----- Umbilical Artery: abnormal, Elevated PI but there was no evidence of absent or reversed end diastolic flow. Sampling site: midcord PI ? 1.63 ? 96% ? Kunal HR ? 153 ? bpm Mid Cerebral Artery: normal PS ? 21.08 ?cm/s PS ? 0.81 ?MoM MATERNAL STRUCTURES ----- Cervix ?Visualized ? Appearance: short cervix with funneling ? Approach - Transvaginal: Cervical length 8.2 mm Right Ovary ?Visualized Left Ovary ?Visualized RECOMMENDATION ----- We discussed the findings on today's ultrasound with the patient. We reviewed that cervical shortening was noted on today's US. Given this, SSE exam was performed, which demonstrated external os dilation of 1 cm. Digital exam performed which demonstrated cervix 1/50/high. Due to previable cervical dilation, recommend evaluation for candidacy for cerclage placement. The risks, benefits and hopeful outcomes of exam indicated cerclage placement were reviewed with the couple and Kyara would like to proceed with cerclage. Patient to L&D at this time. Given increased resistance to flow in UA Doppler of twin B, we will plan to initiate weekly monochorionic surveillance, which was scheduled here. Return to primary provider for continued care. Thank-you for the opportunity to participate in the care of this patient. If you have questions regarding today's evaluation or if we can be of further service, please contact the [facility]. anomalies may be present but not detected I spent a total of 30 minutes on the date of this encounter including preparing to see the patient (reviewing medical records/tests), in direct sqry-cq-bbrm contact with the patient during her visit with the majority spent counseling and discussing the plan of care and documenting the visit in the electronic medical record. Please see note for details. Procedure Note Angelica Wright MD - 10/08/2023 Comprehensive ----- Pat. Name: KYARA ALVAREZ Study Date: 09/26/2023 1:31pm Pat. NO: [id number] Referring MD: RAYA SHAH Site: Program Mgr: Christopher Street RDMS : 2000 Age: 22 ----- INDICATION ----- Monochorionic, Diamniotic Twin gestation. METHOD ----- Transabdominal ultrasound examination. Transvaginal ultrasound examinationwas required to adequately complete the exam. View: Sufficient. ----- Twin . Number of fetuses: 2. Monochorionic-diamniotic DATING ----- DateDetailsGest. age FERNANDO LMP 04/29/2023ycle: irregular cycle21 w + 3 d 02/03/2024 Previous U/S 07/18/2023 GA, GA10 w + 3 d20 w + 3 d 02/10/2024 U/S Fetus 1 09/26/2023 basedupon AC, BPD, Femur, HC 20w + 0 d 02/13/2024 U/S Fetus 2based upon AC, BPD, Femur, HC20 w + 3 d 02/10/2024 Assigned dating based on ultrasound (GA), selected on08/29/2023 20w + 3 d 02/10/2024 Fetus 1: GENERAL EVALUATION ----- Cardiac activity present. FHR 155 bpm. movements: present.Presentation: breech, maternal right. Placenta: Anterior, No Previa, > 2 cm from internal os Umbilical cord: 3 vessel cord, marginal insertion Amniotic fluid: Amount of AF: normal. MVP 6.8 cm Fetus 2: GENERAL EVALUATION ----- Cardiac activity present. FHR 149 bpm. movements: present.Presentation: cephalic, maternal left. presenting today. Placenta: Anterior Umbilical cord: 3 vessel cord Amniotic fluid: Amount of AF: normal. MVP 6.0 cm Fetus 1: BIOMETRY ----- BPD 46.5mm 20w 0dHadlock OFD 60.6mm 19w 5dNicolaides HC 170.8mm 19w 5dHadlock Cerebellum tr 20.4mm 19w 3dNicolaides Nuchal fold 3.8mm AC 141.4mm 19w 4d 17%Hadlock Femur 33.2mm 20w 3dHadlock Humerus 28.5mm 19w 2dJeanty Weight Calculation: EFW 320g 20%Hadlock EFW (lb,oz) 0 lb 11oz EFW by Hadlock([id number]-FL) EFW discordance 13.8% Head / Face / Neck Biometry: Valve Maker 5.3mm CM 2.4mm Nasal bone 5.9mm Fetus 2: BIOMETRY ----- BPD 46.2mm 20w 0dHadlock OFD 62.0mm 20w 0dNicolaides HC 172.9mm 19w 6dHadlock Cerebellum tr 19.7mm 18w 6dNicolaides Nuchal fold 4.4mm AC 155.0mm 20w 5d 52%Hadlock Femur 34.9mm 21w 0dHadlock Humerus 30.9mm 20w 2dJeanty Weight Calculation: EFW 371g 59%Hadlock EFW (lb,oz) 0 lb 13oz EFW by Hadlock([id number]) EFW discordance 13.8% Head / Face / Neck Biometry: Valve Maker 6.9mm CM 4.3mm Nasal bone 5.8mm Fetus 1: ANATOMY ----- The following structures appear normal: Head / Neck Cranium. Head size. Head shape.Lateral ventricles. Choroid plexus. Midline falx. Cavum septi pellucidi.Cerebellum. Cisterna magna. Parenchyma. Thalami. Vermis. Neck. Nuchal fold. Face Lips. Profile. Nose. Maxilla.Mandible. Orbits. Lens. Heart / Thorax 4-chamber view. RVOT view. LVOT view.3-vessel view. 1-venvok-soplozb view. Situs. Aortic arch view. Bicavalview. Ductal arch view. Superior vena cava. Inferior vena cava.Cardiac position. Cardiac size. Cardiac rhythm. Right lung. Left lung.Diaphragm. Abdomen Abdom. wall. Cord insertion. Stomach.Kidneys. Bladder. Liver. Bowel. Genitals. Spine Cervical spine. Thoracic spine.Lumbar spine. Sacral spine. Extremities / Skeleton Arms. Right arm. Right hand. Left arm.Left hand. Legs. Right leg. Right foot. Left leg. Left foot. sex: female. Fetus 2: ANATOMY ----- The following structures appear normal: Head / Neck Cranium. Head size. Head shape.Lateral ventricles. Choroid plexus. Midline falx. Cavum septi pellucidi.Cerebellum. Cisterna magna. Parenchyma. Thalami. Vermis. Neck. Nuchal fold. Face Lips. Profile. Nose. Maxilla.Mandible. Orbits. Lens. Heart / Thorax 4-chamber view. RVOT view. LVOT view.3-vessel view. 9-dwmeyp-qadlmmt view. Situs. Aortic arch view. Bicavalview. Ductal arch view. Superior vena cava. Inferior vena cava.Cardiac position. Cardiac size. Right lung. Left lung.Diaphragm. Abdomen Abdom. wall. Cord insertion. Stomach.Kidneys. Bladder. Liver. Bowel. Genitals. Spine Cervical spine. Thoracic spine.Lumbar spine. Sacral spine. Extremities / Skeleton Arms. Right hand. Left hand. Legs. Rightfoot. Left foot. sex: female. Fetus 1: DOPPLER ----- Umbilical Artery: normal. Sampling site: midcord PI 1.4785% Kunal HR 151bpm Mid Cerebral Artery: normal PS 23.94cm/s PS 0.92MoM Fetus 2: DOPPLER ----- Umbilical Artery: abnormal, Elevated PI but there was no evidence ofabsent or reversed end diastolic flow. Sampling site: midcord PI 1.6396% Kunal HR 153bpm Mid Cerebral Artery: normal PS 21.08cm/s PS 0.81MoM MATERNAL STRUCTURES ----- Cervix Visualized Appearance: short cervix withfunneling Approach - Transvaginal:Cervical length 8.2 mm Right Ovary Visualized Left Ovary Visualized RECOMMENDATION ----- We discussed the findings on today's ultrasound with the patient. We reviewed that cervical shortening was noted on today's US. Given this,SSE exam was performed, which demonstrated external os dilation of 1 cm.Digital exam performed which demonstrated cervix 1/50/high. Due to previable cervicaldilation, recommend evaluation for candidacy for cerclage placement. Therisks, benefits and hopeful outcomes of exam indicated cerclage placement were reviewed withthe couple and Kyara would like to proceed with cerclage. Patient to L&Renzo this time. Given increased resistance to flow in UA Doppler of twin B, we will plan toinitiate weekly monochorionic surveillance, which was scheduled here. Return to primary provider for continued care. Thank-you for the opportunity to participate in the care of this patient.If you have questions regarding today's evaluation or if we can be offurther service, please contact the [facility]. anomalies may be present but not detected I spent a total of 30 minutes on the date of this encounter includingpreparing to see the patient (reviewing medical records/tests), in sjudyrphuq-bc-jtvj contact with the patient during her visit with the majority spent counseling and discussingthe plan of care and documenting the visit in the electronic medicalrecord. Please see note for details. IMPRESSION ----- Monochorionic diamniotic twin gestation at 20w 3d gestational age. Fetus 1 1. No anomalies commonly detected by ultrasound were identified inthe detailed anatomic survey within the limits of prenatalultrasound. 2. Growth parameters and estimated weight were consistent withgestational age predicted by assigned FERNANDO. 3. The amniotic fluid volume appeared normal. A normal bladder wasvisualized. 4. The umbilical artery Doppler studies were within normal limits. 5. The middle cerebral artery Doppler studies were within normal limits. Fetus 2 1. No anomalies commonly detected by ultrasound were identified inthe detailed anatomic survey within the limits of prenatalultrasound. 2. Growth parameters and estimated weight were consistent withgestational age predicted by assigned FERNANDO. The inter-twin discordance waswithin normal limits. 3. The amniotic fluid volume appeared normal. A normal bladder wasvisualized. 4. The umbilical artery Doppler studies demonstrate increased resistanceto flow. 5. The middle cerebral artery Doppler studies were within normal limits. Today's ultrasound does not support a diagnosis of twin twin transfusionsyndrome or twin anemia polycythemia syndrome. Transvaginal ultrasound was performed in conjunction with a transabdominalultrasound to better visualize the cervix. Cervical funneling is notedwith a shortened residual length of 8 mm. Vanita Lin MD [facility] US ORDERABLE S * [facility] Twins US OB Complete 2/3 Tri (08/29/2023 [...] / 3rd Trim ----- Pat. Name: KYARA ALVAREZ ? Study Date: ??08/29/2023 1:33pm Pat. NO: ??[id number] ?Referring ??MD: RAYA SHAH Site: ? Program Mgr: Carmen Zurita RDMS : ??2000 ?Age: ?? 22 ----- INDICATION ----- Monochorionic, Diamniotic Twin gestation METHOD ----- Transabdominal ultrasound examination. View: Sufficient. ----- Twin . Number of fetuses: 2. Monochorionic-diamniotic DATING ----- ? Date ?Details ?Gest. age [...] ?0 lb 5 ?oz EFW by ?Hadlock ([id number]) EFW discordance ?10.2 ?% Head / Face [...] ?0 lb 5 ?oz EFW by ?Hadlock ([id number]-FL) EFW discordance ?10.2 ?% Head / Face [...] be visualized: Heart / Thorax ?3-vessel view. 9-mjmrvg-uloxmpy view. Fetus 2: ANATOMY ----- The following structures appear normal: Head / Neck ? Cranium. Head size. Head shape. Lateral ventricles. Choroid plexus. Midline falx. Cavum septi pellucidi. Cerebellum. Cisterna magna. ? Parenchyma. Thalami. ? Neck. Nuchal fold. Face ? Lips. Profile. Nose. Maxilla. Mandible. Orbits. Lens. Heart / Thorax ?4-chamber view. RVOT view. LVOT view. 3-vessel view. 3-pisftx-subpced view. Situs. Aortic arch view. Bicaval view. [...] The patient is scheduled to return to [facility] in 2 weeks to assess for [...] detected Procedure Note Case Berrios MD - 10/08/2023 / Trim ----- Pat. Name: KYARA ALVAREZ Study Date: 08/29/2023 1:33pm Pat. NO: [id number] Referring MD: RAYA SHAH Site: Program Mgr: Carmen Zurita RDMS : 2000 Age: 22 ----- INDICATION ----- Monochorionic, Diamniotic Twin gestation METHOD ----- Transabdominal ultrasound examination. View: Sufficient. ----- Twin . Number of fetuses: 2. Monochorionic-diamniotic DATING ----- DateDetailsGest. age FERNANDO LMP 04/29/2023ycle: [...] EFW (lb,oz) 0 lb 5oz EFW by Hadlock([id number]) EFW discordance 10.2% Head / Face / Neck Biometry: CM 4.6mm Nasal bone 4.1mm Fetus 2: BIOMETRY ----- BPD 33.2mm 16w 2dHadlock OFD 42.0mm 15w 0dNicolaides HC 120.9mm 16w 0dHadlock Cerebellum tr 16.2mm 16w 1dNicolaides Nuchal fold 2.2mm AC 101.3mm 16w 1d 40%Hadlock Femur 21.6mm 16w 3dHadlock Humerus 20.8mm 16w 1dJeanty Weight Calculation: EFW 151g 32%Hadlock EFW (lb,oz) 0 lb 5oz EFW by Hadlock([id number]) EFW discordance 10.2% Head / Face / [...] be visualized: Heart / Thorax 3-vessel view. 3-qjdqvt-svpkgbpawec. Fetus 2: ANATOMY ----- The following structures appear normal: Head / Neck Cranium. Head size. Head shape.Lateral ventricles. Choroid plexus. Midline falx. Cavum septi pellucidi.Cerebellum. Cisterna magna. Parenchyma. Thalami. Neck. Nuchal fold. Face Lips. Profile. Nose. Maxilla.Mandible. Orbits. Lens. Heart / Thorax 4-chamber view. RVOT view. LVOT view.3-vessel view. 8-vsyhxa-fdnroex view. Situs. Aortic arch view. Bicavalview. Ductal [...] The patient is scheduled to return to [facility] in 2 weeks to assess forTTTS/TAPS [...] 10%. There is no evidence for TTTS/TAPS. Vanita Lin MD [facility] ORDERABLE S * [facility] Non-Invasive Screening???Prequel (08/08/2023 12:45 PM CDT) See Scanned Result [employer] NON-INVASIVE SCREENING PREQUEL-Scann ed 08/14/2023 11:49 AM CDT [facility] Blood STRUCTURE OF RIGHT UPPER LIMB / Unknown Venipuncture / Unknown 08/08/2023 12:45 PM CDT 08/08/2023 12:45 PM CDT Nelsy Diaz LAB - BLOOD ORDERABL ES [facility] [address] [phone] from Last 3 Months or Most Recently Relevant to Health Maintenance Advance Directives For more information, please contact: [phone] * Full Code (Latest Code Status on File) Date Activated Date Inactivated Comments 09/26/2023 4:59 PM 09/27/2023 12:16 PM All basic a nd advanced life-sustaining interventions are performed as appropriate Question Answer Comments Code status determined by: Discussion with patie nt/ legal decision maker Care Teams Commuter Pilot Relationship Specialty Start Date End Date No Ref-Primary, Physician PCP - General 07/22/23 Vanita Lin MD [address] [facility] [address] [place] [address] Assigned OBGYN Provider 08/31/23
--- OUTSIDE RECORDS SUMMARY | 2023-11-18 08:31 | XMS_ITS | Encounter Summary ---
Author Organization [facility] Address [address] [facility] [place] [address] Care Team Providers Care Manager Immunology Name Role Phone No Ref-Primary, Physician Primary Care Provider Mica Aguilar MD Unavailable [phone] Reason for Visit * Reason Comments Ultrasound RL2/UAR/MCA-M/D twin s, Twin A: EFW 12% Encounter Details Date Type Department Care Team (Latest Contact Info) Description 11/07/2023 2:00 PM CDT Office Visit [facility] [place] [address] [place] [address] Angelica Wright MD [address] [place] [address] Monochorionic diamniotic twin gestation in [...] as of this encounter Progress Notes * Angelica Wright MD - 11/07/2023 2:00 PM CDT Please see Imaging tab under Chart Review for details of today's visit. Angelica Wright documented in this encounter Nursing Notes * Blank Juarez, RN - 11/07/2023 2:00 PM CDT Patient presents to [facility] for RL2/UAR/MCA at 26w3d due to M/D twins, Twin A: EFW 12%. Positive movement x2. Denies LOF, vaginal bleeding or cramping/contractions. SBAR given to [facility] MD, see their note in Epic. documented in this encounter Plan of Treatment Upcoming Encounters Date Type Department Care Team (Late st Contact Info) Description 11/21/2023 10:15 AM CDT Appointment [facility] [address] [place] [address] Tomasa Dickens MD [address] [place] [phone] Nitin Morris MD [address] [place] [phone] 11/21/2023 10:45 AM CDT Office Visit [facility] [address] [place] [phone] Tomasa Dickens MD [address] [place] [phone] Nitin Morris MD [address] [place] [phone] 12/05/2023 2:15 PM CDT Appointment [facility] [place] [address] [place] [phone] Tomasa Dickens MD [address] [place] [address] 12/05/2023 2:45 PM CDT Office Visit [facility] [place] [address] [place] [phone] Tomasa Dickens MD [address] [place] [address] 12/19/2023 11:00 AM CDT Appointment [facility] [place] [address] [place] [phone] Tomasa Dickens MD [address] [place] [address] 12/19/2023 11:30 AM CDT Office Visit [facility] [place] [address] [place] [phone] Tomasa Dickens MD [address] [place] [address] 12/26/2023 3:00 PM CDT Appointment [facility] [place] [address] [place] [phone] Tomasa Dickens MD [address] [place] [address] 12/26/2023 3:30 PM CDT Office Visit [facility] [place] [address] [place] [phone] Tomasa Dickens MD [address] [place] [address] 01/02/2024 2:15 PM CDT Appointment [facility] [place] [address] [place] [phone] Tomasa Dickens MD [address] [place], [place] [phone] 01/02/2024 2:45 PM CDT Office Visit [facility] [place] [address] [place] [phone] Tomasa Dickens MD [address] [place] [address] 01/09/2024 3:00 PM CDT Appointment [facility] [place] [address] [place] [phone] Tomasa Dickens MD [address] [place] [address] 01/09/2024 3:30 PM CDT Office Visit [facility] [place] [address] [place] [phone] Tomasa Dickens MD [address] [place] [address] 01/16/2024 2:15 PM SENIOR IT ASSISTANT Appointment [facility] [place] [address] [place] [phone] Tomasa Dickens MD [address] [place], [place] [phone] 01/16/2024 2:45 PM SENIOR IT ASSISTANT Office Visit [facility] [address] [facility] [address] [place] [phone] Tomasa Dickens MD [address] [place], [place] [phone] documented as of this encounter Visit Diagnoses Diagnosis 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- Primary documented in this encounter Care Teams Manager Immunology Relationship Specialty Start Date End Date No Ref-Primary, Physician PCP - General 07/22/23 Mica Aguilar MD [address] [place], [place] [phone] Assigned OBGYN Provider 08/31/23 documented as of this encounter
--- OUTSIDE RECORDS SUMMARY | 2023-11-18 08:31 | XMS_ITS | Referral Summary ---
Author Organization [facility] Address [facility] 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 Discharge Disposition: Home or Self Care 10/10/2023 Office Visit [facility] [address] [place] [phone] Esequiel Grier MD cardiac disease affecting , fetus 1 of multiple gestation (Primary Dx); cardiac disease affecting , fetus 2 of multiple gestation 10/10/2023 Travel 10/10/2023 11:09 AM CDT - 10/10/2023 11:59 PM CDT Hospital Encounter [facility] [address] [place] [phone] Vanita Lin MD Paredes, Carmen R 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 Discharge Disposition: Home or Self Care 10/10/2023 10:59 AM CDT - 10/10/2023 11:08 AM CDT Hospital Encounter [facility] [address] [place] [phone] Vanita Lin MD 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 Discharge Disposition: Home or Self Care 10/08/2023 Travel 10/08/2023 12:15 PM CDT Office Visit [facility] [address] [place] [phone] Vanita Lin MD Rauk, Case Seals MD 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 (Primary Dx) 10/08/2023 11:26 AM CDT - 10/08/2023 11:59 PM CDT Hospital Encounter [facility] Maternal Medicine [facility] [address] [place] [address] Vanita Lin MD Rauk, Phillip Neil, MD 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 Discharge Disposition: Home or Self Care 09/30/2023 Travel 09/30/2023 9:15 AM CDT Office Visit [facility] [address] [facility] [address] [place] [address] Vanita Lin MD Rauk, Case Seals MD 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 (Primary Dx) 09/30/2023 8:45 AM CDT - 09/30/2023 11:59 PM CDT Hospital Encounter [facility] Maternal Medicine [facility] [address] [facility] [address] [place] [address] Vanita Lin MD Rauk, Case Seals MD 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 Discharge Disposition: Home or Self Care 09/26/2023 4:43 PM CDT - 09/28/2023 12:22 PM CDT Hospital Encounter [facility] [address] [place], [place] [address] [phone] Heidi Swain MD Cervical shortening affecting in second trimester (Primary Dx) Discharge Disposition: Home or Self Care 09/27/2023 9:12 AM CDT Anesthesia Event [facility] [address] [place] [address] [place] [phone] Agustina Dinh MD Yang, Simon, MD 09/27/2023 9:00 AM CDT - 09/27/2023 10:15 AM CDT Surgery [facility] [address] [place] [address] [place] [phone] Heidi Swain MD Cerclage cervical 09/26/2023 Travel 09/26/2023 1:30 PM CDT Office Visit [facility] [employer] [address] [place] [phone] 274 Lamar Griffith 09/26/2023 2:45 PM CDT Office Visit 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 [place] [address] [facility] [address] [place] [phone] Vanita Lin MD Yamamura, Yasuko, MD 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 Discharge Disposition: Home or Self Care 08/29/2023 Travel 08/29/2023 2:00 PM CDT Office Visit [facility] [place] [address] [employer] 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 [place] [address] [place] [phone] Vanita Lin MD Rauk, Case Seals MD 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 Discharge Disposition: Home or Self Care 08/25/[address] [facility] [place] [address] [place] [phone] Nelsy Diaz, GC Results (Expanded Carrier Screening with her partner) from Last 3 Months Allergies No known active allergies Medications Medication [...] nts Yes 02/10/2024 Based on Ultraso und Social History Tobacco Use Types Packs/Day Years [...] Info) Description 11/21/2023 10:15 AM CDT Appointment [facility] [address] [facility] [address] [place] [address] Raya Dickens MD [address] [facility] [address] [place] [address] Nitin Morris MD [address] [place] [address] 11/21/2023 10:45 AM CDT Office Visit [facility] M[facility] [place] [address] [place] [phone] Raya Dickens MD [address] [place] [address] Nitin Morris MD [address] [place] [address] 12/05/2023 2:15 PM CDT Appointment [facility] Maternal Medicine [place] [address] [place] [phone] Raya Dickens MD [address] [place] [address] 12/05/2023 2:45 PM CDT Office Visit [facility] Maternal Medicine [place] [address] [place] [phone] Raya Dickens MD [address] [place] [address] 12/19/2023 11:00 AM CDT Appointment [facility] Maternal Medicine [place] [address] [place] [phone] Raya Dickens MD [address] [place] [address] 12/19/2023 11:30 AM CDT Office Visit [facility] Maternal Medicine [place] [address] [place] [phone] Raya Dickens MD [address] [place] [address] 12/26/2023 3:00 PM CDT Appointment [facility] [place] [address] [place] [phone] Raya Dickens MD [address] [place] [address] 12/26/2023 3:30 PM CDT Office Visit [facility] Maternal Medicine [place] [address] [place] [phone] Raya Dickens MD [address] [place] [address] 01/02/2024 2:15 PM CDT Appointment [facility] Maternal Medicine [place] [address] [place] [phone] Raya Dickens MD [address] [place] [address] 01/02/2024 2:45 PM CDT Office Visit [facility] [place] [address] [place] [phone] Raya Dickens MD [address] [place], [place] [address] 01/09/2024 3:00 PM CDT Appointment [facility] [place] [address] [place] [phone] Raya Dickens MD [address] [place], [place] [address] 01/09/2024 3:30 PM CDT Office Visit [facility] [address] [place] [phone] Raya Dickens MD [address] [place] [address] 01/16/2024 2:15 PM ARTIFICIAL FLOWERS STARCHER Appointment [facility] Maternal Medicine [facility] [address] [place] [phone] Raya Dickens MD [address] [place] [address] 01/16/2024 2:45 PM ARTIFICIAL FLOWERS STARCHER Office Visit [facility] Maternal Medicine [facility] [address] [place] [phone] Raya Dickens MD [address] [place] [address] Procedures Procedure Name Priority Date/Time Associated Diagnosis [...] CDT ?Comp Follow Up ----- Pat. Name: ROLANDO VILLEGAS KYARA ? Study Date: ??11/07/2023 1:25pm Pat. NO: ??[id number] ?Referring ??MD: RAYA SHAH Site: ? E M Assembler: Sindhu Maurer RDMS : ??2000 ?Age: ?? [...] ?1 lb 13 ?oz EFW by ?Hadlock (KLS-IO-FC-FL) EFW discordance ?8.2 ? % Head / Face / Neck Biometry: Table Games Supervisor ?5.2 ? mm CM ? 4.2 ? mm Fetus 2: BIOMETRY ----- BPD ? 63.7 ?mm ? 25w 5d ?Hadlock OFD ? 87.1 ?mm ? 26w 0d ?Nicolaides HC ? 241.1 ?mm ? 26w 1d ? Hadlock Cerebellum tr ?30.0 ?mm ? 26w 4d ? Nicolaides AC ? 226.7 ?mm ? 27w 0d ?61% ?Hadlock Femur ?44.7 ?mm ? 24w 5d ? Hadlock Weight Calculation: EFW ?891 ? g ? 26% ?Hadlock EFW (lb,oz) ?1 lb 15 ? oz EFW by ?Hadlock (OJV-CN-DB-FL) EFW discordance ?8.2 ? % Head / Face / Neck Biometry: Table Games Supervisor ?7.7 ? mm CM ? 4.0 ? mm Fetus 1: ANATOMY ----- The following structures appear normal: Head / Neck ? Cranium. Head size. Head shape. Lateral ventricles. Midline falx. Cavum septi pellucidi. Cerebellum. Cisterna magna. Thalami. Face ? Lips. Profile. Nose. Heart / Thorax ?RVOT view. LVOT view. 4-kclsgu-zlgxvkv view. ? Diaphragm. Abdomen ? Stomach. Kidneys. [...] Heart / Thorax ?RVOT view. LVOT view. 9-svuudp-hrqegdt view. ? Diaphragm. Abdomen ? Stomach. Kidneys. [...] the patient (reviewing medical records/tests), in direct fdwx-uj-pfdv contact with the patient during her visit with the majority spent counseling and discussing the plan of care and documenting the visit in the electronic medical record. Please see note for details. Procedure Note Angelica Wright MD - 11/07/2023 Comp Follow Up ----- Pat. Name: KYARA ALVAREZ Study Date: 11/07/2023 1:25pm Pat. NO: [id number] Referring MD: RAYA SHAH Site: E M Assembler: Sindhu Maurer RDMS : 2000 Age: 23 [...] EFW (lb,oz) 1 lb 13oz EFW by Hadlock(YGY-CX-JF-FL) EFW discordance 8.2% Head / Face / Neck Biometry: Table Games Supervisor 5.2mm CM 4.2mm Fetus 2: BIOMETRY ----- BPD 63.7mm 25w 5dHadlock OFD 87.1mm 26w 0dNicolaides HC 241.1mm 26w 1dHadlock Cerebellum tr 30.0mm 26w 4dNicolaides AC 226.7mm 27w 0d 61%Hadlock Femur 44.7mm 24w 5dHadlock Weight Calculation: EFW 891g 26%Hadlock EFW (lb,oz) 1 lb 15oz EFW by Hadlock(ZLD-SI-XR-FL) EFW discordance 8.2% Head / Face / Neck Biometry: Table Games Supervisor 7.7mm CM 4.0mm Fetus 1: ANATOMY ----- The following structures appear normal: Head / Neck Cranium. Head size. Head shape.Lateral ventricles. Midline falx. Cavum septi pellucidi. Cerebellum.Cisterna magna. Thalami. Face Lips. Profile. Nose. Heart / Thorax RVOT view. LVOT view. 5-enowbe-ormapuolcpe. Diaphragm. Abdomen Stomach. Kidneys. Bladder. Genitals. Spine Cervical spine. Thoracic spine.Lumbar spine. Sacral spine. The following structures were documented previously: Heart / Thorax 4-chamber view. sex: female. Fetus 2: ANATOMY ----- The following structures appear normal: Head / Neck Cranium. Head size. Head shape.Lateral ventricles. Midline falx. Cavum septi pellucidi. Cerebellum.Cisterna magna. Thalami. Face Lips. Nose. Heart / Thorax RVOT view. LVOT view. 0-wlnxll-jywukfyvruh. Diaphragm. Abdomen Stomach. Kidneys. Bladder. Spine Cervical [...] see the patient (reviewing medical records/tests), in hovlhqzgmh-cg-xhif contact with the patient during her visit [...] twin anemia polycythemia syndrome. Raya Dickens MD [facility] ORDERAB LES * ECHO - TWIN B COMPLETE (10/10/2023 1:35 PM CDT) Anatomical Region Laterality Modality Echocardiography 10/10/2023 12:0 8 PM CDT Narrative 10/10/2023 2:59 PM CDT [id number]^RILEY^VANITA ? Study ID: [id number] ?[facility] ?[facility] ?[address] ?[place] [address] ? Echocardiogram Name: MARSHALL VILLEGAS, KYARA Tiago Study Date: 10/10/2023 12:08 PM ? Patient Location: [facility] Gender: Female ?Patient Class: Outpatient : 2000 [...] to the left atrium. There is laminar jjukn-km-xnmq shunting across the foramen ovale. Atrioventricular valves: [...] ? TV Close to Open: 0.24 sec Reading Physician: ?Esequiel Grier MD 10/10/2023 02:59 PM Procedure Note Esequiel Grier MD - 10/10/2023 [id number]^RILEY^VANITA Study ID:[id number] [facility] [address] [address] Echocardiogram Name: KYARA ALVAREZ Study Date: 10/10/2023 12:08 PM Patient Location: [facility] Gender: Female Patient Class:Outpatient : 2000 Age: 22 yrs Ordering Provider: VANITA LIN Referring Provider: VANITA LIN Performed By: Doris Black Reading Physician: Esequiel Grier MD Reason For Study: [facility] Data: Number of fetuses: This is a [...] in to the left atrium. There is ebiyapqngzmw-hm-vrvj shunting across the foramen ovale. Atrioventricular valves: [...] PM CDT Narrative 10/10/2023 3:00 PM CDT [id number] [facility] [id number]^RILEY^VANITA ? Study ID: [id number] ?[facility] ?[facility] ?[address] ?[place] [address] ? Echocardiogram Name: KYARA ALVAREZ Study Date: 10/10/2023 12:34 PM ? Patient Location: [facility] Gender: Female ?Patient Class: Outpatient : 2000 [...] to the left atrium. There is laminar ugbmm-ts-dgyz shunting across the foramen ovale. Atrioventricular valves: [...] Procedure Note Esequiel Grier MD - 10/10/2023 [id number]^RILEY^VANITA Study ID:[id number] [facility]'[address] [address] Echocardiogram Name: KYARA ALVAREZ Study Date: 10/10/2023 12:34 PM Patient Location: [facility] Gender: Female Patient Class:Outpatient : 2000 Age: 22 yrs Ordering Provider: VANITA LIN Referring Provider: VANITA LIN Performed By: Doris Black Physician: Esequiel Grier MD Reason For Study: Monochorionic diamniotic twin gestation in [facility] Data: Number of fetuses: This is a [...] in to the left atrium. There is rgoqxfujoqgk-ov-uulw shunting across the foramen ovale. Atrioventricular valves: [...] Medication Administration Time: 09/27/2023 9:20 AM FOR [facility] ([facility]) ONLY: ?? Pain Team Contact information: please page the Pain Team Via Mapidy. Search Pain. During daytime hours, please page the attending first. At night please page the resident first. Agustina Dinh MD [facility] ANESTHESIA * (ABNORMAL) UA with Microscopic (09/26/2023 5:51 PM CDT) Color Urine Light Yellow Colorless, Straw, Light Yellow, Yellow 09/26/2023 6:37 PM CDT [facility] Appearance Urine Clear Clear 09/26/19 24 6:37 PM CDT UR [facility] Glucose Urine Negative Negative mg/dL 09/26/2023 6:37 PM CDT UR LAB[facility]ORY Bilirubin Urine Negative Negative 6:37 PM CDT UR LAB[facility]ORY Ketones Urine 40(A) Negative mg/dL 09/26/2023 6:37 PM CDT UR LABORATORY Specific [place] Urine 1.018 1.003 - 1.035 09/26/2023 6:37 [...] MD LAB - URINE ORDERABLES UR LABORATORY [facility] [address] [facility] [place] [address], [facility] * Urine Culture (09/26/2023 5:51 PM CDT) Culture No Growth XIOMARA 09/28/2023 6:20 AM CDT [facility] Urine MID-STREAM URINE SPECIMEN / Unknown Non-blood Collection / Unknown 09/26/2023 5:51 PM CDT 09/26/2023 6:04 PM CDT Socorro Danielson MD LAB - MICRO GENERAL ORDERABLES [facility] Inf. Diseases Diag. Lab [address] [facility], [address] [place] [address] * (ABNORMAL) Wet prep (09/26/2023 5:50 PM [...] LAB - MICRO GENERAL ORDERABLES UR LABORATORY [facility] [address] [facility], [address] [place] [address] * Neisseria gonorrhoea PCR (09/26/2023 5:50 PM CDT) Neisseria gonorrhoeae Negative Negative 09/27/2023 11:37 AM CDT [facility] Comment:Negative for N. gono rrhoeae rRNA by retail chain store area supervisor mediated amplification. A negative result by retail chain store area supervisor mediated amplification does not preclude the presence of C. trachomatis infection because results are dependent on proper and adequate collection, absence of inhibitors and sufficient rRNA to be detected. Swab VAGINAL STRUCTURE / Unknown Non-blood Collection / Unknown 09/26/2023 5:50 PM CDT 09/26/2023 6:03 PM CDT Socorro Danielson MD LAB - MICRO GENERAL ORDERABLES [facility] Inf. Diseases Diag. Lab [address] [facility], [address] [place] [address] * Chlamydia trachomatis PCR (09/26/2023 5:50 PM CDT) Chlamydia trachomatis Negative Negative 09/27/2023 11:37 AM CDT [facility] Comment:A negative result by retail chain store area supervisor mediated amplification does not preclude the presence of C. trachomatis infection because results are dependent on proper and adequate collection, absence of inhibitors and sufficient rRNA to be detected. Swab VAGINAL STRUCTURE / Unknown Non-blood Collection / Unknown 09/26/2023 5:50 PM CDT 09/26/2023 6:03 PM CDT Socorro Danielson MD LAB - MICRO GENERAL ORDERABLES [facility] Inf. Diseases Diag. Lab [address] [facility], [address] [place] [address] * Extra Serum Separator Tube (SST) (09/26/2023 5:15 PM CDT) Hold Specimen [facility] 09/26/2023 6:32 PM CDT UR LABORATORY Blood STRUCTURE OF RIGHT UPPER LIMB / Unknown Venipuncture / Unknown 09/26/2023 5:15 PM CDT 09/26/2023 5:24 PM CDT Heidi Swain MD LAB - BLOOD ORDERA BLES UR LABORATORY [facility] [address] [place] [address], [address] [address] * Extra Green Top (Morning Glory Heparin) Tube (09/26/2023 5:15 PM CDT) Hold Specimen [facility] 09/26/2023 6:32 PM CDT UR LABORATORY Blood STRUCTURE OF RIGHT UPPER LIMB / Unknown Venipuncture / Unknown 09/26/2023 5:15 PM CDT 09/26/2023 5:25 PM CDT Heidi Swain MD LAB - BLOOD ORDERA BLES UR LABORATORY [facility] [address] [place] [address], [address] [address], [facility] * Adult Type and Screen (09/26/2023 5:15 PM CDT) Pathologist [facility] ABO/RH(D) A POS 09/26/2023 4:59 PM CDT UR BLOOD BANK Antibody Screen Negative Negative 09/26/2023 4:59 PM CDT UR BLOOD BANK SPECIMEN EXPIRATION DATE [id number] 09/26/2023 4:59 PM CDT UR BLOOD BANK Blood STRUCTURE OF RIGHT UPPER LIMB / Unknown Venipuncture / Unknown 09/26/2023 5:15 PM CDT 09/26/2023 5:20 PM CDT Socorro Danielson MD LAB - BLOOD BANK TEST ORDER UR BLOOD BANK [facility] Blood Components Lab [address] [facility], [address] [place] [address] * (ABNORMAL) CBC with platelets (09/26/2023 5:15 PM CDT) Pathologist [facility] WBC Count 11.7(H) 4.0 - 11.0 10e3/uL [...] 5:15 PM CDT 09/26/2023 5:20 PM CDT Jovanymyriam Roberta Danielson MD LAB - BLOOD ORDERABLES UR LABORATORY [facility] [address] [facility] [place] [address] * MFM Twins US Comprehensive (09/26/2023 3:21 [...] 5:10 PM CDT ?Comprehensive ----- Pat. Name: ROLANDO VILLEGASKYARA ? Study Date: ??09/26/2023 1:31pm Pat. NO: ??[id number] ?Referring ??MD: RAYA SHAH Site: ? E M Assembler: Christopher Street RDMS : ??2000 ?Age: ?? [...] BPD ? 46.5 ?mm ? 20w 0d ?[place] OFD ? 60.6 ?mm ? 19w 5d [...] lb 11 ? oz EFW by ?Hadlock (NWT-IU-HV-FL) EFW discordance ?13.8 ?% Head / Face / Neck Biometry: Table Games Supervisor ?5.3 ? mm CM ? 2.4 ? [...] lb 13 ? oz EFW by ?Hadlock (OPC-PC-XF-FL) EFW discordance ?13.8 ?% Head / Face / Neck Biometry: Table Games Supervisor ?6.9 ? mm CM ? 4.3 ? [...] view. RVOT view. LVOT view. 3-vessel view. 9-enirxm-ypkgjgm view. Situs. Aortic arch view. Bicaval view. [...] view. RVOT view. LVOT view. 3-vessel view. 4-rchjpz-zcgycoy view. Situs. Aortic arch view. Bicaval view. [...] bpm Mid Cerebral Artery: normal PS ? .08 ?cm/s PS ? 0.81 ?MoM MATERNAL STRUCTURES [...] the patient (reviewing medical records/tests), in direct ortp-ot-tnho contact with the patient during her visit with the majority spent counseling and discussing the plan of care and documenting the visit in the electronic medical record. Please see note for details. Procedure Note Angelica Wright MD - 10/08/2023 Comprehensive ----- Pat. Name: KYARA ALVAREZ Study Date: 09/26/2023 1:31pm Pat. NO: [id number] Referring MD: RAYA SHAH Site: E M Assembler: Christopher Street RDMS : 2000 Age: 22 [...] EFW (lb,oz) 0 lb 11oz EFW by Hadlock(HOB-BM-TG-FL) EFW discordance 13.8% Head / Face / Neck Biometry: Table Games Supervisor 5.3mm CM 2.4mm Nasal bone 5.9mm Fetus 2: BIOMETRY ----- BPD 46.2mm 20w 0dHadlock OFD 62.0mm 20w 0dNicolaides HC 172.9mm 19w 6dHadlock Cerebellum tr 19.7mm 18w 6dNicolaides Nuchal fold 4.4mm AC 155.0mm 20w 5d 52%Hadlock Femur 34.9mm 21w 0dHadlock Humerus 30.9mm 20w 2dJeanty Weight Calculation: EFW 371g 59%Hadlock EFW (lb,oz) 0 lb 13oz EFW by Hadlock(DNG-ZS-BI-FL) EFW discordance 13.8% Head / Face / Neck Biometry: Table Games Supervisor 6.9mm CM 4.3mm Nasal bone 5.8mm Fetus 1: ANATOMY ----- The following structures appear normal: Head / Neck Cranium. Head size. Head shape.Lateral ventricles. Choroid plexus. Midline falx. Cavum septi pellucidi.Cerebellum. Cisterna magna. Parenchyma. Thalami. Vermis. Neck. Nuchal fold. Face Lips. Profile. Nose. Maxilla.Mandible. Orbits. Lens. Heart / Thorax 4-chamber view. RVOT view. LVOT view.3-vessel view. 6-iaclom-zvjznne view. Situs. Aortic arch view. Bicavalview. Ductal [...] 4-chamber view. RVOT view. LVOT view.3-vessel view. 1-bjrcxe-uvzgfrf view. Situs. Aortic arch view. Bicavalview. Ductal [...] see the patient (reviewing medical records/tests), in qssfowgsgm-ph-aiwu contact with the patient during her visit [...] length of 8 mm. Vanita Lin MD [facility] US ORDERABLE S * MF Twins US OB Complete 2/3 Tri (08/29/2023 [...] CDT ? / Trim ----- Pat. Name: ROLANDO VILLEGAS KYARA ? Study Date: ??08/29/2023 1:33pm Pat. NO: ??[id number] ?Referring ??MD: RAYA SHAH Site: ? E M Assembler: Carmen Zurita RDMS : ??2000 ?Age: ?? [...] ?0 lb 5 ?oz EFW by ?Hadlock ([id number]) EFW discordance ?10.2 ?% Head / Face [...] ?0 lb 5 ?oz EFW by ?Hadlock (ZOM-RI-LA-FL) EFW discordance ?10.2 ?% Head / Face [...] be visualized: Heart / Thorax ?3-vessel view. 1-vfvpbw-ttkvdmk view. Fetus 2: ANATOMY ----- The following structures appear normal: Head / Neck ? Cranium. Head size. Head shape. Lateral ventricles. Choroid plexus. Midline falx. Cavum septi pellucidi. Cerebellum. Cisterna magna. ? Parenchyma. Thalami. ? Neck. Nuchal fold. Face ? Lips. Profile. Nose. Maxilla. Mandible. Orbits. Lens. Heart / Thorax ?4-chamber view. RVOT view. LVOT view. 3-vessel view. 5-epscsc-kmluqmc view. Situs. Aortic arch view. Bicaval view. [...] The patient is scheduled to return to [facility] in 2 weeks to assess [...] Procedure Note Case Berrios MD - 10/08/2023 Trim ----- Pat. Name: KYARA ALVAREZ Study Date: 08/29/2023 1:33pm Pat. NO: [id number] Referring MD: RAYA SHAH Site: E M Assembler: Carmen Zurita RDMS : 2000 Age: 22 [...] EFW (lb,oz) 0 lb 5oz EFW by Hadlock(FIZ-MX-SV-FL) EFW discordance 10.2% Head / Face / Neck Biometry: CM 4.6mm Nasal bone 4.1mm Fetus 2: BIOMETRY ----- BPD 33.2mm 16w 2dHadlock OFD 42.0mm 15w 0dNicolaides HC 120.9mm 16w 0dHadlock Cerebellum tr 16.2mm 16w 1dNicolaides Nuchal fold 2.2mm AC 101.3mm 16w 1d 40%Hadlock Femur 21.6mm 16w 3dHadlock Humerus 20.8mm 16w 1dJeanty Weight Calculation: EFW 151g 32%Hadlock EFW (lb,oz) 0 lb 5oz EFW by Hadlock(EID-ZX-OV-FL) EFW discordance 10.2% Head / Face / [...] be visualized: Heart / Thorax 3-vessel view. 4-kbveqa-dpztapxjaeo. Fetus 2: ANATOMY ----- The following structures appear normal: Head / Neck Cranium. Head size. Head shape.Lateral ventricles. Choroid plexus. Midline falx. Cavum septi pellucidi.Cerebellum. Cisterna magna. Parenchyma. Thalami. Neck. Nuchal fold. Face Lips. Profile. Nose. Maxilla.Mandible. Orbits. Lens. Heart / Thorax 4-chamber view. RVOT view. LVOT view.3-vessel view. 4-nuninb-szunxoy view. Situs. Aortic arch view. Bicavalview. Ductal [...] The patient is scheduled to return to [facility] in 2 weeks to assess [...] [facility] ORDERABLE S * Book&Table Non-Invasive Screening???Prequel (08/08/2023 12:45 PM CDT) See Scanned Result [facility] NON-INVASIVE SCREENING PREQUEL-Scann ed 08/14/2023 11:49 AM CDT [employer] Blood STRUCTURE OF RIGHT UPPER LIMB / Unknown Venipuncture / Unknown 08/08/2023 12:45 PM CDT 08/08/2023 12:45 PM CDT Nelsy Diaz [facility] - BLOOD ORDERABL ES [employer] [address] [place] [address], [facility] [phone] from Last 3 Months or Most Recently Relevant to Health Maintenance Advance Directives For more information, please contact: [phone] * Full Code (Latest Code Status on File) Date Activated Date Inactivated Comments 09/26/2023 4:59 PM 09/27/2023 12:16 PM All basic a nd advanced life-sustaining interventions are performed as appropriate Question Answer Comments Code status determined by: Discussion with patie nt/ legal decision maker Care Teams Political Scientist Relationship Specialty Start Date End Date No Ref-Primary, Physician PCP - General 07/22/23 Vanita Lin MD [address] [place] [address] Assigned OBGYN Provider 08/31/23
--- OUTSIDE RECORDS SUMMARY | 2023-11-18 08:31 | XMS_ITS | Encounter Summary ---
Author Organization [facility] Address Formerly [facility] [place] [address] Care Team Providers Care Hvac Engineer Name Role Phone No Ref-Primary, Physician Primary Care Provider Mica Aguilar MD Unavailable [phone] Reason for Referral * Diagnostic Imaging Ultrasound (Routine) - Pending Review Specialty Diagnoses / Procedures Referred By Contbeata t Referred To Contact Radiology. 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 Procedures MFM Twins US Comprehensive F/U MFM Twins US Comprehensive F/U Raya Dickens MD [address] [place] [address] Referral ID Status Reason Start Date Expiration Date V isits Requested Visits Authorized [id number] Pending Review 10/24/2023 10/23/2024 1 1 Reason for Visit * Diagnostic Imaging Ultrasound (Routine) - Pending Review Specialty Diagnoses / Procedures Referred By Contac t Referred To Contact Radiology. 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 Procedures MFM Twins US Comprehensive F/U MFM Twins US Comprehensive F/U Raya Dickens MD [address] [place] [address] Referral ID Status Reason Start Date Expiration Date V isits Requested Visits Authorized [id number] Pending Review 10/24/2023 10/23/2024 1 1 Encounter Details Date Type Department Care Team (Latest Contact Info) Description 11/07/2023 1:01 PM CDT - 11/07/2023 11:59 PM CDT Hospital Encounter [facility] [address] [place] [phone] Angelica Wright MD [address] [place] [address] Monochorionic diamniotic twin gestation in [...] on file documented as of this encounter Medications at Time of Discharge Medication Sig Dispensed Refills Start Date End Date acetaminophen (TYLENOL) 325 MG tabletIndications:Cervica l shortening affecting in second trimester Take 1-2 tablets (325-650 mg) by mouth every 6 hours as needed for mild pain 30 tablet 09/28/2023 aspirin 81 MG EC tablet Take 81 mg by mouth daily Vit-Fe Fumarate-FA ( MULTIVITAMIN PLUS IRON) 27-1 MG TABS Take 1 tablet by mouth daily documented as of this encounter Plan of Treatment Upcoming Encounters Date Type Department Care Team (Late st Contact Info) Description 11/21/2023 10:[address] [facility] [address] [place] [phone] Raya Dickens MD [address] [place], [place] [phone] Nitin Morris MD [address] [place] [address] 11/21/2023 10:45 AM CDT Office Visit [facility] [place] [address] [place] [phone] Raya Dickens MD [address] [place] [address] Nitin Morris MD [address] [place] [address] 12/05/2023 2:[address] [facility] Maternal Medicine [place] [address] [place] [phone] Raya Dickens MD [address] [place] [address] 12/05/2023 2:45 PM CDT Office Visit [facility] Medicine [place] [address] [place] [phone] Raya Dickens MD [address] [place] [address] 12/19/2023 11:[address] [facility] M[facility] Medicine [place] [address] [place] [phone] Raya Dickens MD [address] [place] [address] 12/19/2023 11:30 AM CDT Office Visit [facility] [place] [address] [place] [phone] Raya Dickens MD [address] [place] [address] 12/26/2023 3:[address] [facility] Medicine [place] [address] [place] [phone] Raya Dickens MD [address] [place] [address] 12/26/2023 3:30 PM CDT Office Visit [facility] M[facility] Medicine [place] [address] [place] [phone] Raya Dickens MD [address] [place] [address] 01/02/2024 2:[address] [facility] M[facility] Medicine [place] [address] [place] [phone] Raya Dickens MD [address] [place] [address] 01/02/2024 2:45 PM CDT Office Visit [facility] Maternal Medicine [place] [address] [place] [phone] Raya Dickens MD [address] [place] [address] 01/09/2024 3:[address] [facility] Maternal Medicine [place] [address] [place] [phone] Raya Dickens MD [address] [place] [address] 01/09/2024 3:30 PM CDT Office Visit [facility] Maternal Medicine [facility] [address] [place] [address] Raya Dickens MD [address] [place] [address] 01/16/2024 2:15 PM COMMUNICATIONS TECHNICIAN Appointment [facility] Maternal Medicine [place] [address] [place] [address] Raya Dickens MD [address] [place] [address] 01/16/2024 2:45 PM COMMUNICATIONS TECHNICIAN Office Visit [facility] Maternal Medicine [place] [address] [place] [phone] Raya Dickens MD [address] [place] [address] documented as of this encounter Procedures Procedure Name Priority Date/Time Associated Diagnosis Comments MFM TWINS US COMPREHENSIVE F/U Routine 11/07/2023 2:29 PM CDT 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 documented in this encounter Results * MFM Twins US Comprehensive F/U (11/07/2023 2:29 PM CDT) Anatomical Region Laterality Modality Ultrasound 11/07/2023 1:25 [...] ?Comp Follow Up ----- Pat. Name: KYARA MISHRA ? Study Date: ??11/07/2023 1:25pm Pat. NO: ??[id number] ?Referring ??: RAYA SHAH Site: ? Facilities Operator: Sindhuangelique Maurer RDMS : ??2000 ?Age: ?? 23 [...] ?1 lb 13 ?oz EFW by ?Hadlock ([id number]-[id number]-FL) EFW discordance ?8.2 ? % Head / Face / Neck Biometry: Welding Machine Tender ?5.2 ? mm CM ? 4.2 ? mm Fetus 2: BIOMETRY ----- BPD ? 63.7 ?mm ? 25w 5d ?Valentino SANTACRUZ ? 87.1 ?mm ? 26w 0d ?Nicolaides HC ? 241.1 ?mm ? 26w 1d ? Hadlock Cerebellum tr ?30.0 ?mm ? 26w 4d ? Nicolaides AC ? 226.7 ?mm ? 27w 0d ?61% ?Hadlock Femur ?44.7 ?mm ? 24w 5d ? Hadlock Weight Calculation: EFW ?891 ? g ? 26% ?Hadlock EFW (lb,oz) ?1 lb 15 ? oz EFW by ?Hadlock (DFJ-KG-AA-FL) EFW discordance ?8.2 ? % Head / Face / Neck Biometry: Welding Machine Tender ?7.7 ? mm CM ? 4.0 ? mm Fetus 1: ANATOMY ----- The following structures appear normal: Head / Neck ? Cranium. Head size. Head shape. Lateral ventricles. Midline falx. Cavum septi pellucidi. Cerebellum. Cisterna magna. Thalami. Face ? Lips. Profile. Nose. Heart / Thorax ?RVOT view. LVOT view. 3-kpayia-rnhorua view. ? Diaphragm. Abdomen ? Stomach. Kidneys. [...] Heart / Thorax ?RVOT view. LVOT view. 3-ptvyyu-zrdbcrv view. ? Diaphragm. Abdomen ? Stomach. Kidneys. [...] the patient (reviewing medical records/tests), in direct rvwf-hl-louc contact with the patient during her visit with the majority spent counseling and discussing the plan of care and documenting the visit in the electronic medical record. Please see note for details. Procedure Note Angelica Wright MD - 11/07/2023 Comp Follow Up ----- Pat. Name: KYARA MISHRA Study Date: 11/07/2023 1:25pm Pat. NO: [id number] Referring MD: RAYA SHAH Site: Facilities Operator: Sindhu Maurer RDMS : 2000 Age: 23 [...] EFW (lb,oz) 1 lb 13oz EFW by Hadlock(LFR-ZQ-OS-FL) EFW discordance 8.2% Head / Face / Neck Biometry: Welding Machine Tender 5.2mm CM 4.2mm Fetus 2: BIOMETRY ----- BPD 63.7mm 25w 5dHadlock OFD 87.1mm 26w 0dNicolaides HC 241.1mm 26w 1dHadlock Cerebellum tr 30.0mm 26w 4dNicolaides AC 226.7mm 27w 0d 61%Hadlock Femur 44.7mm 24w 5dHadlock Weight Calculation: EFW 891g 26%Hadlock EFW (lb,oz) 1 lb 15oz EFW by Hadlock(HHK-PK-PS-FL) EFW discordance 8.2% Head / Face / Neck Biometry: Welding Machine Tender 7.7mm CM 4.0mm Fetus 1: ANATOMY ----- The following structures appear normal: Head / Neck Cranium. Head size. Head shape.Lateral ventricles. Midline falx. Cavum septi pellucidi. Cerebellum.Cisterna magna. Thalami. Face Lips. Profile. Nose. Heart / Thorax RVOT view. LVOT view. 7-gikdjt-auroynbmgfd. Diaphragm. Abdomen Stomach. Kidneys. Bladder. Genitals. Spine Cervical spine. Thoracic spine.Lumbar spine. Sacral spine. The following structures were documented previously: Heart / Thorax 4-chamber view. sex: female. Fetus 2: ANATOMY ----- The following structures appear normal: Head / Neck Cranium. Head size. Head shape.Lateral ventricles. Midline falx. Cavum septi pellucidi. Cerebellum.Cisterna magna. Thalami. Face Lips. Nose. Heart / Thorax RVOT view. LVOT view. 9-bqbvws-lhvioocrqeu. Diaphragm. Abdomen Stomach. Kidneys. Bladder. Spine Cervical [...] today's evaluation or [facility], please contact the [facility]. anomalies may be present but not detected I spent a total of 10 minutes on the date of this encounter includingpreparing to see the patient (reviewing medical records/tests), in ilkkerdigg-lg-kulp contact with the patient during her visit [...] twin anemia polycythemia syndrome. Raya Dickens MD [facility] US ORDERAB LES documented in this encounter Visit Diagnoses Diagnosis 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 documented in this encounter Care Teams Hvac Engineer Relationship Specialty Start Date End Date No Ref-Primary, Physician PCP - General 07/22/23 Mica Aguilar MD [address] [address] Assigned OBGYN Provider 08/31/23 documented as of this encounter
--- OUTSIDE RECORDS SUMMARY | 2023-11-18 08:32 | XMS_ITS | Encounter Summary ---
Author Organization [facility] Address [address] [facility] [place] [address] Care Team Providers Care Tire Mounter Name Role Phone No Ref-Primary, Physician Primary Care Provider Mica Aguilar MD Unavailable [phone] Encounter Details Date Type Department Care Team (Latest Contact Info) Description 10/08/2023 Travel Social History Tobacco Use Types Packs/Day [...] Info) Description 11/21/2023 10:15 AM CDT Appointment [facility] [place] [address] [place] [address] Tomasa Dickens MD [address] [place], [place] [address] Nitin Morris MD [address] [place] [address] 11/21/2023 10:45 AM CDT Office Visit [facility] [place] [address] [place] [phone] Tomasa Dickens MD [address] [place] [address] Nitin Morris MD [address] [place] [address] 12/05/2023 2:15 PM CDT Appointment [facility] Maternal Medicine [place] [address] [place] [phone] Tomasa Dickens MD [address] [place] [address] 12/05/2023 2:45 PM CDT Office Visit [facility] Maternal Medicine [place] [address] [place] [phone] Tomasa Dickens MD [address] [place] [address] 12/19/2023 11:00 AM CDT Appointment [facility] Maternal Medicine [place] [address] [place] [phone] Tomasa Dickens MD [address] [place] [address] 12/19/2023 11:30 AM CDT Office Visit [facility] M[facility] Medicine [place] [address] [place] [phone] Tomasa Dickens MD [address] [place] [address] 12/26/2023 3:00 PM CDT Appointment [facility] [place] [address] [place] [phone] Tomasa Dickens MD [address] [place] [address] 12/26/2023 3:30 PM CDT Office Visit [facility] M[facility] Medicine [place] [address] [place] [phone] Tomasa Dickens MD [address] [place] [address] 01/02/2024 2:15 PM CDT Appointment [facility] M[facility] Medicine [place] [address] [place] [phone] Tomasa Dickens MD [address] [place] [address] 01/02/2024 2:45 PM CDT Office Visit [facility] [place] [address] [place] [phone] Tomasa Dickens MD [address] [place] [address] 01/09/2024 3:00 PM CDT Appointment [facility] [place] [address] [place] [phone] Tomasa Dickens MD [address] [place] [address] 01/09/2024 3:30 PM CDT Office Visit [facility] M[facility] Medicine [place] [address] [facility] [address] [place] [phone] Tomasa Dickens MD [address] [place], [place] [address] 01/16/2024 2:15 PM DANCE PROFESSOR Appointment [facility] [place] [address] [facility] [address] [place] [phone] Tomasa Dickens MD [address] [place] [address] 01/16/2024 2:45 PM DANCE PROFESSOR Office Visit [facility] Maternal Medicine [place] [address] [facility] [address] [place] [phone] Tomasa Dickens MD [address] [place], [place] [phone] documented as of this encounter Visit Diagnoses Not on filedocumented in this encounter Care Teams Tire Mounter Relationship Specialty Start Date End Date No Ref-Primary, Physician PCP - General 07/22/23 Mica Aguilar MD [address] [place] [address] Assigned OBGYN Provider 08/31/23 documented as of this encounter
--- OUTSIDE RECORDS SUMMARY | 2023-11-18 08:32 | XMS_ITS | Encounter Summary ---
Author Organization Winter Address [facility] [place] [address] Care Team Providers Care Patrol Sergeant Name Role Phone No Ref-Primary, Physician Primary Care Provider Mica Aguilar MD Unavailable [phone] Reason for Referral * Diagnostic Imaging Ultrasound (Routine) - Pending Review Specialty Diagnoses / Procedures Referred By Contac t Referred To Contact Radiology. 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 Procedures MFM Twins Comprehensive F/U Mica Aguilar MD [address] [place] [address] Referral ID Status Reason Start Date Expiration Date V isits Requested Visits Authorized [id number] Pending Review 08/08/2023 08/07/2024 1 1 Reason for Visit * Diagnostic Imaging Ultrasound (Routine) - Pending Review Specialty Diagnoses / Procedures Referred By Contac t Referred To Contact Radiology. 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 Procedures MFM Twins US Comprehensive F/U Mica Aguilar MD [address] [place] [address] Referral ID Status Reason Start Date Expiration Date V isits Requested Visits Authorized [id number] Pending Review 08/08/2023 08/07/2024 1 1 Encounter Details Date Type Department Care Team (Latest Contact Info) Description 10/08/2023 11:26 AM CDT - 10/08/2023 11:59 PM CDT Hospital Encounter [facility] Medicine [facility] [address] [facility] [address] [place] [phone] Mica Aguilar MD [address] [place] [address] Case Berrios MD [address] [place] [address] Monochorionic diamniotic twin gestation in [...] Info) Description 11/21/2023 10:15 AM CDT Appointment [facility] Medicine [facility] [address] [facility] [address] [place] [phone] Raya Dickens MD [address] [place] [address] Nitin Morris MD [address] [place] [address] 11/21/2023 10:45 AM CDT Office Visit [facility] [place] [address] [place] [phone] Raya Dickens MD [address] [place] [address] Nitin Morris MD [address] [place] [address] 12/05/2023 2:15 PM CDT Appointment [facility] [place] [address] [place] [phone] Raya Dickens MD [address] [place] [address] 12/05/2023 2:45 PM CDT Office Visit [facility] [place] [address] [place] [phone] Raya Dickens MD [address] [place] [address] 12/19/2023 11:00 AM CDT Appointment [facility] [place] [address] [place] [phone] Raya Dickens MD [address] [place], [place] [address] 12/19/2023 11:30 AM CDT Office Visit [facility] [place] [address] [place] [phone] Raya Dickens MD [address] [place] [address] 12/26/2023 3:00 PM CDT Appointment [facility] [place] [address] [facility] [address] [place] [phone] Raya Dickens MD [address] [place] [address] 12/26/2023 3:30 PM CDT Office Visit [facility] [place] [address] [facility] [address] [place] [phone] Raya Dickens MD [address] [place] [address] 01/02/2024 2:15 PM CDT Appointment [facility] [place] [address] [facility] [address] [place] [phone] Raya Dickens MD [address] [place] [address] 01/02/2024 2:45 PM CDT Office Visit [facility] [place] [address] [facility] [address] [place] [phone] Raya Dickens MD [address] [place] [address] 01/09/2024 3:00 PM CDT Appointment [facility] [place] [address] [place] [address] Raya Dickens MD [address] [place] [address] 01/09/2024 3:30 PM CDT Office Visit [facility] Medicine [place] [address] [facility] [address] [place] [phone] Raya Dickens MD [address] [place], [place] [address] 01/16/2024 2:15 PM ELECTRON BEAM MACHINE WELDER SETTER Appointment [facility] Medicine [place] [address] [facility] [address] [place] [phone] Raya Dickens MD [address] [place] [address] 01/16/2024 2:45 PM ELECTRON BEAM MACHINE WELDER SETTER Office Visit [facility] Medicine [place] [address] [facility] [address] [place] [phone] Raya Dickens MD [address] [place], [place] [address] documented as of this encounter Procedures Procedure Name Priority Date/Time Associated Diagnosis Comments MFM TWINS US COMPREHENSIVE F/U Routine 10/08/2023 12:09 PM CDT 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 documented in this encounter Results * MFM Twins US Comprehensive F/U (10/08/2023 12:09 PM CDT) Anatomical Region Laterality Modality Ultrasound 10/08/2023 11:3 5 AM CDT Impressions 10/08/2023 12:12 PM CDT IMPRESSION ----- Monochorionic diamniotic twin gestation at 22w 1d gestational age. Fetus 1 1. A normal bladder was visualized. 2. The amniotic fluid volume appeared normal. 3. The umbilical artery Doppler studies were within normal limits. 4. The middle cerebral artery Doppler studies were within normal limits. Fetus 2 1. A normal bladder was visualized. 2. The amniotic fluid volume appeared normal. 3. The umbilical artery Doppler studies were within normal limits. 4. The middle cerebral artery Doppler studies were within normal limits. Today's ultrasound does not support a diagnosis of twin twin transfusion syndrome or twin anemia polycythemia syndrome. Narrative 10/08/2023 12:12 PM CDT ? Surveillance US ----- Pat. Name: KRISTYN MISHRA ? Study Date: ??10/08/2023 11:35am Pat. NO: ??[id number] ?Referring ??: RAYA SHAH Site: ? [facility]yer: Linda Lock RDMS : ??2000 ?Age: ?? 22 ----- INDICATION ----- Monochorionic, Diamniotic Twin gestation. Mild poly Twin A. Elevated Dopplers on both twins. METHOD ----- Transabdominal ultrasound examination. View: Sufficient. ----- Twin . Number of fetuses: 2. Monochorionic-diamniotic DATING ----- ? Date ?Details ?Gest. age ?FERNANDO LMP ?04/29/2023 ?Cycle: irregular cycle ? 23 w + 1 d ? 02/03/2024 Previous U/S ?07/18/2023 ?GA, GA 10 w + 3 d ?22 w + 1 d ? 02/10/2024 Assigned dating ?based on ultrasound (GA), selected on 10/08/2023 ?22 w + 1 d ? 02/10/2024 Fetus 1: GENERAL EVALUATION ----- Cardiac activity present. FHR 151 bpm. movements: visualized. Presentation: cephalic, maternal right Placenta: Anterior, thin dividing membrane Umbilical cord: previously studied Amniotic fluid: Amount of AF: normal. MVP 7.0 cm Fetus 2: GENERAL EVALUATION ----- Cardiac activity present. FHR 153 bpm. movements: visualized. Presentation: cephalic, maternal left Placenta: Anterior, thin dividing membrane Umbilical cord: previously studied Amniotic fluid: Amount of AF: normal. MVP 8.0 cm Fetus 1: DOPPLER ----- Umbilical Artery: normal PI ? 1.35 ?78% ? Kunal HR ? 151 ? bpm Mid Cerebral Artery: normal PS ? 25.72 ?cm/s PS ? 0.91 ?MoM Fetus 2: DOPPLER ----- Umbilical Artery: normal PI ? 1.35 ?78% ? Kunal HR ? 153 ? bpm Mid Cerebral Artery: normal PS ? 21.15 ?cm/s PS ? 0.75 ?MoM Fetus 1: TTTS ASSESSMENT ----- Cardiac activity: present Placental location: ... Placental cord insertion: ... bladder: normal hydrops: No MVP: 7 cm MCA PSV: 25.72 cm/s ??MCA MoM: 0.91 UA PI: 1.35, 78% Fetus 2: TTTS ASSESSMENT ----- Cardiac activity: present Placental location: ... Placental cord insertion: ... bladder: normal hydrops: No MVP: 8 cm MCA PSV: 21.15 cm/s ??MCA MoM: 0.75 UA PI: 1.35, 78% RECOMMENDATION ----- We discussed the findings on today's ultrasound with the patient. The patient is scheduled to return to [facility] in 2 weeks for MCDA twin surveillance. Return to primary provider for continued care, Thank-you for the opportunity to participate in the care of this patient. If you have questions regarding today's evaluation or if we can be of further service, please contact the Maternal[facility] Medicine Center. anomalies may be present but not detected Procedure Note Case Berrios MD - 10/08/2023 Surveillance US ----- Pat. Name: KRISTYN MISHRA Study Date: 10/08/2023 11:35am Pat. NO: [id number] Referring MD: RAYA SHAH Site: [facility]: Linda Lock RDMS : 2000 Age: 22 ----- INDICATION ----- Monochorionic, Diamniotic Twin gestation. Mild poly Twin A. Elevated Dopplers on both twins. METHOD ----- Transabdominal ultrasound examination. View: Sufficient. ----- Twin . Number of fetuses: 2. Monochorionic-diamniotic DATING ----- DateDetailsGest. age FERNANDO LMP 4Cycle: irregular cycle23 w + 1 d 02/03/2024 Previous U/S 07/18/2023 GA, GA10 w + 3 d22 w + 1 d 02/10/2024 Assigned dating based on ultrasound (GA), selected on10/08/2023 22w + 1 d 02/10/2024 Fetus 1: GENERAL EVALUATION ----- Cardiac activity present. FHR 151 bpm. movements: visualized.Presentation: cephalic, maternal right Placenta: Anterior, thin dividing membrane Umbilical cord: previously studied Amniotic fluid: Amount of AF: normal. MVP 7.0 cm Fetus 2: GENERAL EVALUATION ----- Cardiac activity present. FHR 153 bpm. movements: visualized.Presentation: cephalic, maternal left Placenta: Anterior, thin dividing membrane Umbilical cord: previously studied Amniotic fluid: Amount of AF: normal. MVP 8.0 cm Fetus 1: DOPPLER ----- Umbilical Artery: normal PI 1.3578%Kunal HR 151bpm Mid Cerebral Artery: normal PS 25.72cm/s PS 0.91MoM Fetus 2: DOPPLER ----- Umbilical Artery: normal PI 1.3578%Kunal HR 153bpm Mid Cerebral Artery: normal PS 21.15cm/s PS 0.75MoM Fetus 1: TTTS ASSESSMENT ----- Cardiac activity: present Placental location: ... Placental cord insertion: ... bladder: normal hydrops: No MVP: 7 cm MCA PSV: 25.72 cm/s MCA MoM: 0.91 UA PI: 1.35, 78% Fetus 2: TTTS ASSESSMENT ----- Cardiac activity: present Placental location: ... Placental cord insertion: ... bladder: normal hydrops: No MVP: 8 cm MCA PSV: 21.15 cm/s MCA MoM: 0.75 UA PI: 1.35, 78% RECOMMENDATION ----- We discussed the findings on today's ultrasound with the patient. The patient is scheduled to return to [facility] in 2 weeks for MCDA twinsurveillance. Return to primary provider for continued care, Thank-you for the opportunity to participate in the care of this patient.If you have questions regarding today's evaluation or if we can be offurther service, please contact the Maternal[facility] Center. anomalies may be present but not detected IMPRESSION ----- Monochorionic diamniotic twin gestation at 22w 1d gestational age. Fetus 1 1. A normal bladder was visualized. 2. The amniotic fluid volume appeared normal. 3. The umbilical artery Doppler studies were within normal limits. 4. The middle cerebral artery Doppler studies were within normal limits. Fetus 2 1. A normal bladder was visualized. 2. The amniotic fluid volume appeared normal. 3. The umbilical artery Doppler studies were within normal limits. 4. The middle cerebral artery Doppler studies were within normal limits. Today's ultrasound does not support a diagnosis of twin twin transfusionsyndrome or twin anemia polycythemia syndrome. Mica Aguilar MD [facility] US ORDERABLE S documented in this encounter Visit Diagnoses Diagnosis 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 documented in this encounter Care Teams Patrol Sergeant Relationship Specialty Start Date End Date No Ref-Primary, Physician PCP - General 07/22/23 Mica Aguilar MD [address] [address] Assigned OBGYN Provider 08/31/23 documented as of this encounter
--- OUTSIDE RECORDS SUMMARY | 2023-11-18 08:32 | XMS_ITS | Encounter Summary ---
Author Organization Brock Address [address] [facility] [address] Care Team Providers Care Run Lead Name Role Phone No Ref-Primary, Physician Primary Care Provider Mica Aguilar MD Unavailable [phone] Encounter Details Date Type Department Care Team (Latest Contact Info) Description 10/10/2023 Travel Social History Tobacco Use Types Packs/Day [...] AM CDT Appointment [facility] [place] [address] [facility] [facility] [address] [place] [address] Tomasa Dickens MD [address] [place], [place] [address] Nitin Morris MD [address] [place] [address] 11/21/2023 10:45 AM CDT Office Visit [facility] [place] [address] [place] [phone] Tomasa Dickens MD [address] [place] [address] Nitin Morris MD [address] [place] [address] 12/05/2023 2:15 PM CDT Appointment [facility] [place] [address] [place] [phone] Tomasa Dickens MD [address] [place] [address] 12/05/2023 2:45 PM CDT Office Visit [facility] [place] [address] [place] [phone] Tomasa Dickens MD [address] [place] [address] 12/19/2023 11:00 AM CDT Appointment [facility] [place] [address] [place] [phone] Tomasa Dickens MD [address] [place] [address] 12/19/2023 11:30 AM CDT Office Visit [facility] [place] [address] [place] [phone] Tomasa Dickens MD [address] [place] [address] 12/26/2023 3:00 PM CDT Appointment [facility] [place] [address] [place] [phone] Tomasa Dickens MD [address] [place] [address] 12/26/2023 3:30 PM CDT Office Visit [facility] [place] [address] [place] [address] Tomasa Dickens MD [address] [place] [address] 01/02/2024 2:15 PM CDT Appointment [facility] [place] [address] [place] [phone] Tomasa Dickens MD [address] [place] [address] 01/02/2024 2:45 PM CDT Office Visit [facility] [place] [address] [place] [phone] Tomasa Dickens MD [address] [place] [address] 01/09/2024 3:00 PM CDT Appointment [facility] [place] [address] [place] [address] Tomasa Dickens MD [address] [place] [address] 01/09/2024 3:30 PM CDT Office Visit [facility] [place] [address] [facility] [address] [place] [phone] Tomasa Dickens MD [address] [place], [place] [address] 01/16/2024 2:15 PM TICKET DISPENSER CHANGER Appointment [facility] Medicine [place] [address] [facility] [address] [place] [phone] Tomasa Dickens MD [address] [place] [address] 01/16/2024 2:45 PM TICKET DISPENSER CHANGER Office Visit [facility] [place] [address] [facility] [address] [place] [phone] Tomasa Dickens MD [address] [place], [place] [phone] documented as of this encounter Visit Diagnoses Not on filedocumented in this encounter Care Teams Run Lead Relationship Specialty Start Date End Date No Ref-Primary, Physician PCP - General 07/22/23 Mica Aguilar MD [address] [place] [address] Assigned OBGYN Provider 08/31/23 documented as of this encounter
--- OUTSIDE RECORDS SUMMARY | 2023-11-18 08:32 | XMS_ITS | Encounter Summary ---
Author Organization [place] Address [address] [facility] [place] [address] Care Team Providers Care Shank Archer Name Role Phone No Ref-Primary, Physician Primary Care Provider Mica Aguilar MD Unavailable [phone] Encounter Details Date Type Department Care Team (Latest Contact Info) Description 10/24/2023 Travel Social History Tobacco Use Types Packs/Day [...] Info) Description 11/21/2023 10:15 AM CDT Appointment [facility] [place] [address] [facility] [address] [place] [address] Tomasa Dickens MD [address] [place], [place] [address] Nitin Morris MD [address] [place] [address] 11/21/2023 10:45 AM CDT Office Visit [facility] [place] [address] [place] [phone] Tomasa Dickens MD [address] [place] [address] Nitin Morris MD [address] [place] [address] 12/05/2023 2:15 PM CDT Appointment [facility] [place] [address] [place] [phone] Tomasa Dickens MD [address] [place] [address] 12/05/2023 2:45 PM CDT Office Visit [facility] [place] [address] [place] [phone] Tomasa Dickens MD [address] [place] [address] 12/19/2023 11:00 AM CDT Appointment [facility] [place] [address] [place] [phone] Tomasa Dickens MD [address] [place] [address] 12/19/2023 11:30 AM CDT Office Visit [facility] [place] [address] [place] [phone] Tomasa Dickens MD [address] [place] [address] 12/26/2023 3:00 PM CDT Appointment [facility] [place] [address] [place] [phone] Tomasa Dickens MD [address] [place] [address] 12/26/2023 3:30 PM CDT Office Visit [facility] [place] [address] [place] [phone] Tomasa Dickens MD [address] [place] [address] 01/02/2024 2:15 PM CDT Appointment [facility] [place] [address] [place] [phone] Tomasa Dickens MD [address] [place] [address] 01/02/2024 2:45 PM CDT Office Visit [facility] [place] [address] [place] [phone] Tomasa Dickens MD [address] [place] [address] 01/09/2024 3:00 PM CDT Appointment [facility] [place] [address] [place] [phone] Tomasa Dickens MD [address] [place] [address] 01/09/2024 3:30 PM CDT Office Visit [facility] [place] [address] [facility] [address] [place] [phone] Tomasa Dickens MD [address] [place], [place] [address] 01/16/2024 2:15 PM INVESTIGATOR INTERNAL REVENUE Appointment [facility] Medicine [place] [address] [facility] [address] [place] [phone] Tomasa Dickens MD [address] [place] [address] 01/16/2024 2:45 PM INVESTIGATOR INTERNAL REVENUE Office Visit [facility] [place] [address] [facility] [address] [place] [phone] Tomasa Dickens MD [address] [place], [place] [phone] documented as of this encounter Visit Diagnoses Not on filedocumented in this encounter Care Teams Shank Archer Relationship Specialty Start Date End Date No Ref-Primary, Physician PCP - General 07/22/23 Mica Aguilar MD [address] [place] [address] Assigned OBGYN Provider 08/31/23 documented as of this encounter
--- OUTSIDE RECORDS SUMMARY | 2023-11-18 08:32 | XMS_ITS | Encounter Summary ---
Author Organization [place] Address [facility]0 [facility] [place] [address] Care Team Providers Care K9 Handler Name Role Phone No Ref-Primary, Physician Primary Care Provider Mica Aguilar MD Unavailable [phone] Reason for Referral * Diagnostic Imaging Ultrasound (Routine) - Pending Review Specialty Diagnoses / Procedures Referred By Contac t Referred To Contact Radiology. 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 Procedures MFM Twins US Comprehensive F/U MFM Twins US Comprehensive F/U Raya Dickens MD [address] [place] [address] Referral ID Status Reason Start Date Expiration Date V isits Requested Visits Authorized [id number] Pending Review 10/24/2023 10/23/2024 1 1 * Diagnostic Imaging Ultrasound (Routine) - Pending Review Specialty Diagnoses / Procedures Referred By Contac t Referred To Contact Radiology. 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 Procedures MFM Twins US Comprehensive F/U MFM Twins US Comprehensive F/U Raya Dickens MD [address] [place] [address] Referral ID Status Reason Start Date Expiration Date V isits Requested Visits Authorized [id number] Pending Review 10/24/2023 10/23/2024 1 1 * Diagnostic Imaging Ultrasound (Routine) - Pending Review Specialty Diagnoses / Procedures Referred By Contac t Referred To Contact Radiology. 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 Procedures MFM Twins Comprehensive F/U Raya Dickens MD [address] [place] [address] Referral ID Status Reason Start Date Expiration Date V isits Requested Visits Authorized [id number] Pending Review 10/24/2023 10/23/2024 1 1 * Diagnostic Imaging Ultrasound (Routine) - Pending Review Specialty Diagnoses / Procedures Referred By Contac t Referred To Contact Radiology. 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 Procedures MFM Twins P Raya Dickens MD [address] [place] [address] Referral ID Status Reason Start Date Expiration Date V isits Requested Visits Authorized [id number] Pending Review 10/24/2023 10/23/2024 1 1 * Diagnostic Imaging Ultrasound (Routine) - Pending Review Specialty Diagnoses / Procedures Referred By Contac t Referred To Contact Radiology. 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 Procedures MFM Twins Raya Castellanos MD [address] [place] [address] Referral ID Status Reason Start Date Expiration Date V isits Requested Visits Authorized [id number] Pending Review 10/24/2023 10/23/2024 1 1 * Diagnostic Imaging Ultrasound (Routine) - Pending Review Specialty Diagnoses / Procedures Referred By Contac t Referred To Contact Radiology. 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 Procedures MFM Twins US Comprehensive F/U Raya Dickens MD [address] [place] [address] Referral ID Status Reason Start Date Expiration Date V isits Requested Visits Authorized [id number] Pending Review 10/24/2023 10/23/2024 1 1 * Diagnostic Imaging Ultrasound (Routine) - Pending Review Specialty Diagnoses / Procedures Referred By Contac t Referred To Contact Radiology. 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 Procedures MFM Twins US Comprehensive F/U Raya Dickens MD [address] [place] [address] Referral ID Status Reason Start Date Expiration Date V isits Requested Visits Authorized [id number] Pending Review 10/24/2023 10/23/2024 1 1 * Diagnostic Imaging Ultrasound (Routine) - Pending Review Specialty Diagnoses / Procedures Referred By Contac t Referred To Contact Radiology. 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 Procedures MFM Twins US Comprehensive F/U Raya Dickens MD [address] [place] [address] Referral ID Status Reason Start Date Expiration Date V isits Requested Visits Authorized [id number] Pending Review 10/24/2023 10/23/2024 1 1 Reason for Visit * Reason Comments Ultrasound RL2/UAR/MCA-M/D twin s Encounter Details Date Type Department Care Team (Latest Contact Info) Description 10/24/2023 2:45 PM CDT Office Visit [facility] [place] [address] [facility] [address] [place] [address] Angelica Wright MD [address] [place] [address] Raya Dickens MD [address] [place] [address] Monochorionic diamniotic twin gestation in [...] as of this encounter Progress Notes * Raya Dickens MD - 10/24/2023 2:45 PM CDT Please see the imaging tab for details of the ultrasound performed today. Raya Dickens MD Specialist in Maternal- Medicine documented in this encounter Nursing Notes * Blank Juarez RN - 10/24/2023 2:45 PM CDT Patient presents to [facility] for RL2/UAR/MCA at 24w3d due to M/D twins. Positive movement x2. Denies LOF, vaginal bleeding or cramping/contractions. SBAR given to M , see their note in Epic. documented in this encounter Plan of Treatment Upcoming Encounters Date Type Department Care Team (Late st Contact Info) Description 11/21/2023 10:15 AM CDT Appointment [facility] [place] [address] [place] [phone] Raya Dickens MD [address] [place], [place] [address] Nitin Morris MD [address] [place], [place] [address] 11/21/2023 10:45 AM CDT Office Visit [facility] [place] [address] [place] [phone] Raya Dickens MD [address] [place], [place] [id number] Nitin Morris MD [address] [place], [place] [id number] 12/05/2023 2:15 PM CDT Appointment [facility] [place] [address] [place] [phone] Raya Dickens MD [address] [place], [place] [address] 12/05/2023 2:45 PM CDT Office Visit [facility] [place] [address] [place] [phone] Raya Dickens MD [address] [place], [place] [address] 12/19/2023 11:00 AM CDT Appointment [facility] [place] [address] [place] [phone] Raya Dickens MD [address] [place] [address] 12/19/2023 11:30 AM CDT Office Visit [facility] [place] [address] [place] [phone] Raya Dickens MD [address] [place] [address] 12/26/2023 3:00 PM CDT Appointment [facility] [place] [address] [place] [phone] Raya Dickens MD [address] [place] [address] 12/26/2023 3:30 PM CDT Office Visit [facility] [place] [address] [place] [phone] Raya Dickens MD [address] [place] [address] 01/02/2024 2:15 PM CDT Appointment [facility] [place] [address] [place] [phone] Raya Dickens MD [address] [place] [address] 01/02/2024 2:45 PM CDT Office Visit [facility] [place] [address] [place] [phone] Raya Dickens MD [address] [place] [address] 01/09/2024 3:00 PM CDT Appointment [facility] [place] [address] [place] [phone] Raya Dickens MD [address] [place] [address] 01/09/2024 3:30 PM CDT Office Visit [facility] [place] [address] [facility] [address] [place] [phone] Raya Dickens MD [address] [place] [address] 01/16/2024 2:15 PM [employer]IDENTIAL SALES Appointment [facility] [place] [address] [facility] [address] [place] [phone] Raya Dickens MD [address] [place] [address] 01/16/2024 2:45 PM [employer] Office Visit [facility] [place] [address] [facility] [address] [place] [phone] Raya Dickens MD [address] [place], [place] [address] Scheduled Orders Name Type Priority Associated Diagnoses Orde r Schedule MFM Twins US Comprehensive F/U Imaging Routine 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 Expected: 11/21/2023 (Approximate), Expires: 08/23/2024 MFM Twins US Comprehensive F/U Imaging Routine 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 Expected: 12/05/2023 (Approximate), Expires: 08/23/2024 MFM Twins US Comprehensive F/U Imaging Routine 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 Expected: 12/19/2023 (Approximate), Expires: 08/23/2024 MFM Twins BPP Imaging Routine 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 Expected: 12/26/2023 (Approximate), Expires: 08/23/2024 MFM Twins BPP Imaging Routine 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 Expected: 01/09/2024 (Approximate), Expires: 08/23/2024 MFM Twins US Comprehensive F/U Imaging Routine 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 Expected: 01/16/2024 (Approximate), Expires: 08/23/2024 MFM Twins US Comprehensive F/U Imaging Routine 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 Expected: 01/02/2024 (Approximate), Expires: 08/23/2024 documented as of this encounter Results * [...] CDT ?Comp Follow Up ----- Pat. Name: KRISTYN MISHRA ? Study Date: ??11/07/2023 1:25pm Pat. NO: ??[id number] ?Referring ??MD: RAYA SHAH Site: ? News Technical Director: Sindhu Maurer RDMS : ??[id number] ?Age: ?? [...] ?1 lb 13 ?oz EFW by ?Hadlock (COM-IV-PT-FL) EFW discordance ?8.2 ? % Head / Face / Neck Biometry: Distribution Operations Supervisor ?5.2 ? mm CM ? 4.2 [...] lb 15 ? oz EFW by ?Hadlock ([id number]) EFW discordance ?8.2 ? % Head / Face / Neck Biometry: Distribution Operations Supervisor ?7.7 ? mm CM ? 4.0 ? mm Fetus 1: ANATOMY ----- The following structures appear normal: Head / Neck ? Cranium. Head size. Head shape. Lateral ventricles. Midline falx. Cavum septi pellucidi. Cerebellum. Cisterna magna. Thalami. Face ? Lips. Profile. Nose. Heart / Thorax ?RVOT view. LVOT view. 9-rewldr-abwyvik view. ? Diaphragm. Abdomen ? Stomach. Kidneys. [...] Heart / Thorax ?RVOT view. LVOT view. 5-yijbdh-shglxwk view. ? Diaphragm. Abdomen ? Stomach. Kidneys. [...] the patient (reviewing medical records/tests), in direct mrtj-jd-htmo contact with the patient during her visit with the majority spent counseling and discussing the plan of care and documenting the visit in the electronic medical record. Please see note for details. Procedure Note Angelica Wright MD - 11/07/2023 Comp Follow Up ----- Pat. Name: KRISTYN MISHRA Study Date: 11/07/2023 1:25pm Pat. NO: [id number] Referring MD: RAYA SHAH Site: News Technical Director: Sindhu Maurer RDMS : 2000 Age: 23 [...] EFW (lb,oz) 1 lb 13oz EFW by Hadlock([id number]) EFW discordance 8.2% Head / Face / Neck Biometry: Distribution Operations Supervisor 5.2mm CM 4.2mm Fetus 2: BIOMETRY ----- BPD 63.7mm 25w 5dHadlock OFD 87.1mm 26w 0dNicolaides HC 241.1mm 26w 1dHadlock Cerebellum tr 30.0mm 26w 4dNicolaides AC 226.7mm 27w 0d 61%Hadlock Femur 44.7mm 24w 5dHadlock Weight Calculation: EFW 891g 26%Hadlock EFW (lb,oz) 1 lb 15oz EFW by Hadlock([id number]) EFW discordance 8.2% Head / Face / Neck Biometry: Distribution Operations Supervisor 7.7mm CM 4.0mm Fetus 1: ANATOMY ----- The following structures appear normal: Head / Neck Cranium. Head size. Head shape.Lateral ventricles. Midline falx. Cavum septi pellucidi. Cerebellum.Cisterna magna. Thalami. Face Lips. Profile. Nose. Heart / Thorax RVOT view. LVOT view. 1-kxkiyv-mwvbpmavsux. Diaphragm. Abdomen Stomach. Kidneys. Bladder. Genitals. Spine Cervical spine. Thoracic spine.Lumbar spine. Sacral spine. The following structures were documented previously: Heart / Thorax 4-chamber view. sex: female. Fetus 2: ANATOMY ----- The following structures appear normal: Head / Neck Cranium. Head size. Head shape.Lateral ventricles. Midline falx. Cavum septi pellucidi. Cerebellum.Cisterna magna. Thalami. Face Lips. Nose. Heart / Thorax RVOT view. LVOT view. 9-osbowe-lorharqnbzv. Diaphragm. Abdomen Stomach. Kidneys. Bladder. Spine Cervical [...] see the patient (reviewing medical records/tests), in neibmadyqd-wp-mpym contact with the patient during her visit [...] twin anemia polycythemia syndrome. Raya Dickens MD [facility] US ORDERAB LES documented in this encounter Visit Diagnoses Diagnosis 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- Primary 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 documented in this encounter Care Teams K9 Handler Relationship Specialty Start Date End Date No Ref-Primary, Physician PCP - General 07/22/23 Mica Aguilar MD [address] [place] [address] Assigned OBGYN Provider 08/31/23 documented as of this encounter
--- OUTSIDE RECORDS SUMMARY | 2023-11-18 08:32 | XMS_ITS | Encounter Summary ---
Author Organization [facility] Address [address] [place] [address]. [place] [address] Care Team Providers Care Utilities Manager Name Role Phone No Ref-Primary, Physician Primary Care Provider Mica Aguilar MD Unavailable [phone] Reason for Referral * Diagnostic Imaging Ultrasound (Routine) - Pending Review Specialty Diagnoses / Procedures Referred By Contac t Referred To Contact Radiology. 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 Procedures MFM Twins Analisa F/U Case Berrios MD [address] [place] [address] Referral ID Status Reason Start Date Expiration Date V isits Requested Visits Authorized [id number] Pending Review 09/30/2023 09/29/2024 1 1 Reason for Visit * Diagnostic Imaging Ultrasound (Routine) - Pending Review Specialty Diagnoses / Procedures Referred By Contac t Referred To Contact Radiology. 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 Procedures MFM Twins Analisa F/U Case Berrios MD [address] [place] [address] Referral ID Status Reason Start Date Expiration Date V isits Requested Visits Authorized [id number] Pending Review 09/30/2023 09/29/2024 1 1 Encounter Details Date Type Department Care Team (Latest Contact Info) Description 10/24/2023 2:10 PM CDT - 10/24/2023 11:59 PM CDT Hospital Encounter [facility] Medicine [facility] [address] [place] [phone] Angelica Wright MD [address] [place] [address] Monochorionic diamniotic twin gestation in [...] Info) Description 11/21/2023 10:15 AM CDT Appointment [facility] Medicine [facility] [address] [place] [phone] Raya Dickens MD [address] [place] [address] Nitin Morris MD [address] [place] [address] 11/21/2023 10:45 AM CDT Office Visit [facility] [place] [address] [place] [phone] Raya Dickens MD [address] [place] [address] Nitin Morris MD [address] [place] [address] 12/05/2023 2:15 PM CDT Appointment [facility] [place] [address] [place] [phone] Raya Dickens MD [address] [place] [address] 12/05/2023 2:45 PM CDT Office Visit [facility] [place] [address] [place] [phone] Raya Dickens MD [address] [place] [address] 12/19/2023 11:00 AM CDT Appointment [facility] [place] [address] [place] [phone] Raya Dickens MD [address] [place] [address] 12/19/2023 11:30 AM CDT Office Visit [facility] [place] [address] [place] [phone] Raya Dickens MD [address] [place] [address] 12/26/2023 3:00 PM CDT Appointment [facility] [place] [address] [place] [phone] Raya Dickens MD [address] [place] [address] 12/26/2023 3:30 PM CDT Office Visit [facility] [place] [address] [place] [phone] Raya Dickens MD [address] [place] [address] 01/02/2024 2:15 PM CDT Appointment [facility] [place] [address] [place] [phone] Raya Dickens MD [address] [place] [address] 01/02/2024 2:45 PM CDT Office Visit [facility] [place] [address] [place] [phone] Raya Dickens MD [address] [place] [address] 01/09/2024 3:00 PM CDT Appointment [facility] [place] [address] [place] [phone] Raya Dickens MD [address] [place] [address] 01/09/2024 3:30 PM CDT Office Visit [facility] [place] [address] [place] [phone] Raya Dickens MD [address] [place], [place] [address] 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 [facility] [place] [address] [place] [phone] Raya Dickens MD [address] [place] [address] 01/16/2024 2:45 PM COMPUTING MACHINE OPERATOR Office Visit [facility] [place] [address] [place] [phone] Raya Dickens MD [address] [place], [place] [id number] documented as of this encounter Procedures Procedure Name Priority Date/Time Associated Diagnosis Comments MFM TWINS US COMPREHENSIVE F/U Routine 10/24/2023 3:18 PM CDT 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 documented in this encounter Results * MFM Twins US Comprehensive F/U (10/24/2023 3:18 PM CDT) Anatomical Region Laterality Modality Ultrasound 10/24/2023 2:10 PM CDT Impressions 10/24/2023 4:40 PM CDT IMPRESSION ----- Monochorionic monoamniotic twin gestation at 24w 3d gestational age. Fetus 1 1. None of the anomalies commonly detected by ultrasound were evident in the detailed anatomic survey described above. 2. Growth parameters and estimated weight were consistent with an gestational age predicted by assigned FERNANDO. However, the EFW is at the 12th percentile today (previously at the 20th percentile). 3. The amniotic fluid volume appeared normal. A normal bladder was visualized. 4. There was increased resistance in the umbilical artery Doppler. 5. The middle cerebral artery Doppler studies were within normal limits. Fetus 2 1. None of the anomalies commonly detected by ultrasound were evident in the detailed anatomic survey described above. 2. Growth parameters and estimated weight were consistent with gestational age predicted by assigned FERNANDO. The inter-twin discordance was 10.4%. 3. The amniotic fluid volume appeared normal. A normal bladder was visualized. 4. The umbilical artery Doppler studies were within normal limits. 5. The middle cerebral artery Doppler studies were within normal limits. Today's ultrasound does not support a diagnosis of twin twin transfusion syndrome or twin anemia polycythemia syndrome. Narrative 10/24/2023 4:40 PM CDT ?Comp Follow Up ----- Pat. Name: KRISTYN MISHRA ? Study Date: ??10/24/2023 2:10pm Pat. NO: ??[id number] ?Referring ??: RAYA SHAH Site: ? Associate Faculty: Sindhu Maurer RDMS : ??[id number] ?Age: ?? 23 ----- INDICATION ----- Monochorionic, Diamniotic Twin gestation. Mild poly Twin A. Elevated Dopplers on both twins. METHOD ----- Transabdominal ultrasound examination. View: Suboptimal view: limited by position ----- Twin . Number of fetuses: 2. Monochorionic-diamniotic DATING ----- ? Date ?Details ?Gest. age ?FERNANDO LMP ?04/29/2023 ?Cycle: irregular cycle ? 25 w + 3 d ? 02/03/2024 Previous U/S ?07/18/2023 ?GA, GA 10 w + 3 d ?24 w + 3 d ? 02/10/2024 U/S Fetus 1 ? 10/24/2023 ? based upon AC, BPD, Femur, HC ?23 w + 3 d ? 02/17/2024 U/S Fetus 2 ?based upon AC, BPD, Femur, HC ?23 w + 6 d ? 02/14/2024 Assigned dating ?based on ultrasound (GA), selected on 10/08/2023 ?24 w + 3 d ? 02/10/2024 Fetus 1: GENERAL EVALUATION ----- Cardiac activity present. FHR 145 bpm. movements: present. Presentation: breech, maternal right, presenting Placenta: Anterior, thin dividing membrane Umbilical cord: 3 vessel cord Amniotic fluid: Amount of AF: normal. MVP 6.9 cm Fetus 2: GENERAL EVALUATION ----- Cardiac activity present. FHR 153 bpm. movements: present. Presentation: transverse with head to maternal right, superior, maternal left Placenta: Anterior, thin dividing membrane Umbilical cord: 3 vessel cord Amniotic fluid: Amount of AF: normal. MVP 6.8 cm Fetus 1: BIOMETRY ----- BPD ? 57.3 ?mm ? 23w 4d ?[place] OFD ? 74.8 ?mm ? 23w 0d ?Nicolaides HC ? 210.7 ?mm ? 23w 1d ? [place] Cerebellum tr ?27.1 ?mm ? 24w 4d ? Nicolaides AC ? 194.8 ?mm ? 24w 1d ?33% ?[place] Femur ?39.9 ?mm ? 22w 6d ? [place] Weight Calculation: EFW ?606 ? g ? 12% ?[place] EFW (lb,oz) ?1 lb 5 ?oz EFW by ?[place] (FPL-AF-GV-FL) EFW discordance ?10.4 ?% Head / Face / Neck Biometry: Riddler Operator ?6.1 ? mm CM ? 6.2 ? mm Fetus 2: BIOMETRY ----- BPD ? 55.7 ?mm ? 23w 0d ?[place] OFD ? 78.1 ?mm ? 23w 5d ?Nicolaides HC ? 215.2 ?mm ? 23w 4d ? [place] Cerebellum tr ?27.6 ?mm ? 24w 6d ? Nicolaides AC ? 200.6 ?mm ? 24w 5d ?50% ?[place] Femur ?42.9 ?mm ? 24w 0d ? [place] Weight Calculation: EFW ?677 ? g ? 33% ?[place] EFW (lb,oz) ?1 lb 8 ?oz EFW by ?[place] (PAD-SF-SG-FL) EFW discordance ?10.4 ?% Head / Face / Neck Biometry: Riddler Operator ?8.4 ? mm CM ? 6.3 ? mm Fetus 1: ANATOMY ----- The following structures appear normal: Head / Neck ? Cranium. Head size. Head shape. Lateral ventricles. Midline falx. Cavum septi pellucidi. Cerebellum. Cisterna magna. Thalami. Face ? Lips. Profile. Nose. Heart / Thorax ?4-chamber view. RVOT view. LVOT view. 1-rixmvk-vissvoe view. ? Diaphragm. Abdomen ? Stomach. Kidneys. Bladder. The following structures were documented previously: Spine ?Cervical spine. Thoracic spine. Lumbar spine. Sacral spine. sex: female. Fetus 2: ANATOMY ----- The following structures appear normal: Head / Neck ? Cranium. Head size. Head shape. Lateral ventricles. Midline falx. Cavum septi pellucidi. Cerebellum. Cisterna magna. Thalami. Heart / Thorax ?4-chamber view. RVOT view. LVOT view. ? Diaphragm. Abdomen ? Stomach. Kidneys. Bladder. Spine ?Cervical spine. Thoracic spine. Lumbar spine. Sacral spine. The following structures were documented previously: Face ? Lips. Profile. Nose. Heart / Thorax ?5-safvdk-fgbvasj view. sex: female. Fetus 1: DOPPLER ----- Umbilical Artery: abnormal, Elevated PI but there was no evidence of absent or reversed end diastolic flow PI ? 1.68 ?>99% ?Kunal HR ? 149 ? bpm Mid Cerebral Artery: normal PS ? 32.40 ?cm/s PS ? 1.04 ?MoM Fetus 2: DOPPLER ----- Umbilical Artery: normal PI ? 1.21 ? 69% ? Kunal HR ? 154 ? bpm Mid Cerebral Artery: normal PS ? 31.83 ?cm/s PS ? 1.02 ?MoM MATERNAL STRUCTURES ----- Cervix ?Suboptimal Right Ovary ?Not examined Left Ovary ?Not examined RECOMMENDATION ----- We discussed the findings on today's ultrasound with the patient. A repeat ultrasound has been scheduled here in 2 week to reassess growth given the less than expected interval growth for twin 1 with elevated UA Doppler on today's ultrasound. Additionally, recommend continued every 2 week TTTS/TAPS surveillance. Return to primary provider for continued care. Thank you for the opportunity to participate in the care of this patient. If you have questions regarding today's evaluation or if we can be of further service, please contact the [facility]. anomalies may be present but not detected Procedure Note Raya Dickens MD - 10/24/2023 Comp Follow Up ----- Pat. Name: KRISTYN MISHRA Study Date: 10/24/2023 2:10pm Pat. NO: [id number] Referring MD: RAYA SHAH Site: Associate Faculty: Sindhu Maurer RDMS : [id number] Age: 23 ----- INDICATION ----- Monochorionic, Diamniotic Twin gestation. Mild poly Twin A. Elevated Dopplers on both twins. METHOD ----- Transabdominal ultrasound examination. View: Suboptimal view: limited byfetal position ----- Twin . Number of fetuses: 2. Monochorionic-diamniotic DATING ----- DateDetailsGest. age FERNANDO LMP 04/29/2023ycle: irregular cycle25 w + 3 d 02/03/2024 Previous U/S 07/18/2023 GA, GA10 w + 3 d24 w + 3 d 02/10/2024 U/S Fetus 1 10/24/2023 basedupon AC, BPD, Femur, HC 23w + 3 d 02/17/2024 U/S Fetus 2based upon AC, BPD, Femur, HC23 w + 6 d 02/14/2024 Assigned dating based on ultrasound (GA), selected on10/08/2023 24w + 3 d 02/10/2024 Fetus 1: GENERAL EVALUATION ----- Cardiac activity present. FHR 145 bpm. movements: present.Presentation: breech, maternal right, presenting Placenta: Anterior, thin dividing membrane Umbilical cord: 3 vessel cord Amniotic fluid: Amount of AF: normal. MVP 6.9 cm Fetus 2: GENERAL EVALUATION ----- Cardiac activity present. FHR 153 bpm. movements: present.Presentation: transverse with head to maternal right, superior, maternalleft Placenta: Anterior, thin dividing membrane Umbilical cord: 3 vessel cord Amniotic fluid: Amount of AF: normal. MVP 6.8 cm Fetus 1: BIOMETRY ----- BPD 57.3mm 23w 4d[place] OFD 74.8mm 23w 0dNicolaides HC 210.7mm 23w 1d[place] Cerebellum tr 27.1mm 24w 4dNicolaides AC 194.8mm 24w 1d 33%[place] Femur 39.9mm 22w 6d[place] Weight Calculation: EFW 606g 12%[place] EFW (lb,oz) 1 lb 5oz EFW by [place](EKE-BR-XU-FL) EFW discordance 10.4% Head / Face / Neck Biometry: Riddler Operator 6.1mm CM 6.2mm Fetus 2: BIOMETRY ----- BPD 55.7mm 23w 0d[place] OFD 78.1mm 23w 5dNicolaides HC 215.2mm 23w 4d[place] Cerebellum tr 27.6mm 24w 6dNicolaides AC 200.6mm 24w 5d 50%[place] Femur 42.9mm 24w 0d[place] Weight Calculation: EFW 677g 33%[place] EFW (lb,oz) 1 lb 8oz EFW by [place](WYH-VL-RJ-FL) EFW discordance 10.4% Head / Face / Neck Biometry: Riddler Operator 8.4mm CM 6.3mm Fetus 1: ANATOMY ----- The following structures appear normal: Head / Neck Cranium. Head size. Head shape.Lateral ventricles. Midline falx. Cavum septi pellucidi. Cerebellum.Cisterna magna. Thalami. Face Lips. Profile. Nose. Heart / Thorax 4-chamber view. RVOT view. LVOT view.1-ogmchk-wsqftdw view. Diaphragm. Abdomen Stomach. Kidneys. Bladder. The following structures were documented previously: Spine Cervical spine. Thoracic spine.Lumbar spine. Sacral spine. sex: female. Fetus 2: ANATOMY ----- The following structures appear normal: Head / Neck Cranium. Head size. Head shape.Lateral ventricles. Midline falx. Cavum septi pellucidi. Cerebellum.Cisterna magna. Thalami. Heart / Thorax 4-chamber view. RVOT view. LVOTview. Diaphragm. Abdomen Stomach. Kidneys. Bladder. Spine Cervical spine. Thoracic spine.Lumbar spine. Sacral spine. The following structures were documented previously: Face Lips. Profile. Nose. Heart / Thorax 9-xmmlhu-hlrjrhw view. sex: female. Fetus 1: DOPPLER ----- Umbilical Artery: abnormal, Elevated PI but there was no evidence ofabsent or reversed end diastolic flow PI 1.68>99% Kunal HR 149bpm Mid Cerebral Artery: normal PS 32.40cm/s PS 1.04MoM Fetus 2: DOPPLER ----- Umbilical Artery: normal PI 1.2169% Kunal HR 154bpm Mid Cerebral Artery: normal PS 31.83cm/s PS 1.02MoM MATERNAL STRUCTURES ----- Cervix Suboptimal Right Ovary Not examined Left Ovary Not examined RECOMMENDATION ----- We discussed the findings on today's ultrasound with the patient. A repeat ultrasound has been scheduled here in 2 week to reassess fetalgrowth given the less than expected interval growth for twin 1 withelevated UA Doppler on today's ultrasound. Additionally, recommend continued every 2 week TTTS/TAPSsurveillance. Return to primary provider for continued care. Thank you for the opportunity to participate in the care of this patient.If you have questions regarding today's evaluation or if we can be offurther service, please contact the [facility]. anomalies may be present but not detected IMPRESSION ----- Monochorionic monoamniotic twin gestation at 24w 3d gestational age. Fetus 1 1. None of the anomalies commonly detected by ultrasound were evident inthe detailed anatomic survey described above. 2. Growth parameters and estimated weight were consistent with angestational age predicted by assigned FERNANDO. However, the EFW is at the 12thpercentile today (previously at the 20th percentile). 3. The amniotic fluid volume appeared normal. A normal bladder wasvisualized. 4. There was increased resistance in the umbilical artery Doppler. 5. The middle cerebral artery Doppler studies were within normal limits. Fetus 2 1. None of the anomalies commonly detected by ultrasound were evident inthe detailed anatomic survey described above. 2. Growth parameters and estimated weight were consistent withgestational age predicted by assigned FERNANDO. The inter-twin discordance was10.4%. 3. The amniotic fluid volume appeared normal. A normal bladder wasvisualized. 4. The umbilical artery Doppler studies were within normal limits. 5. The middle cerebral artery Doppler studies were within normal limits. Today's ultrasound does not support a diagnosis of twin twin transfusionsyndrome or twin anemia polycythemia syndrome. Case Berrios MD IMG MF US ORDERABL ES documented in this encounter Visit Diagnoses Diagnosis 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 documented in this encounter Care Teams Utilities Manager Relationship Specialty Start Date End Date No Ref-Primary, Physician PCP - General 07/22/23 Mica Aguilar MD [facility] [address] [address] Assigned OBGYN Provider 08/31/23 documented as of this encounter
--- OUTSIDE RECORDS SUMMARY | 2023-11-18 08:32 | XMS_ITS | Encounter Summary ---
Author Organization [place] Address Formerly [facility]0 [facility] [place] [place] [address] Care Team Providers Care Referral And Information Aide Name Role Phone No Ref-Primary, Physician Primary Care Provider Mica Aguilar MD Unavailable [phone] Reason for Referral * Diagnostic Imaging Ultrasound (Routine) - Pending Review Specialty Diagnoses / Procedures Referred By Contac t Referred To Contact Radiology. 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 Procedures MFM Twins Comprehensive F/U Mica Aguilar MD [address] [place] [address] Referral ID Status Reason Start Date Expiration Date V isits Requested Visits Authorized [id number] Pending Review 08/08/2023 08/07/2024 1 1 Reason for Visit * Diagnostic Imaging Ultrasound (Routine) - Pending Review Specialty Diagnoses / Procedures Referred By Contac t Referred To Contact Radiology. 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 Procedures MFM Twins US Comprehensive F/U Mica Aguilar MD [address] [place] [address] Referral ID Status Reason Start Date Expiration Date V isits Requested Visits Authorized [id number] Pending Review 08/08/2023 08/07/2024 1 1 Encounter Details Date Type Department Care Team (Latest Contact Info) Description 09/30/2023 8:45 AM CDT - 09/30/2023 11:59 PM CDT Hospital Encounter [facility] Medicine [facility] [address] [place] [phone] Mica Aguilar MD [address] [place] [address] Case Berrios MD [address] [place] [address] Monochorionic diamniotic twin gestation in [...] Info) Description 11/21/2023 10:15 AM CDT Appointment [facility] [address] [place] [phone] Raya Dickens MD [address] [place] [address] Nitin Morris MD [address] [place] [address] 11/21/2023 10:45 AM CDT Office Visit [facility] [place] [address] [place] [phone] Raya Dickens MD [address] [place] [address] Nitin Morris MD [address] [place] [address] 12/05/2023 2:15 PM CDT Appointment [facility] [place] [address] [place] [phone] Raya Dickens MD [address] [place] [address] 12/05/2023 2:45 PM CDT Office Visit [facility] [place] [address] [place] [phone] Raya Dickens MD [address] [place] [address] 12/19/2023 11:00 AM CDT Appointment [facility] [place] [address] [place] [phone] Raya Dickens MD [address] [place], [place] [address] 12/19/2023 11:30 AM CDT Office Visit [facility] [place] [address] [place] [phone] Raya Dickens MD [address] [place] [address] 12/26/2023 3:00 PM CDT Appointment [facility] [place] [address] [address] [place] [phone] Raya Dickens MD [address] [place] [address] 12/26/2023 3:30 PM CDT Office Visit [facility] [place] [address] [address] [place] [phone] Raya Dickens MD [address] [place] [address] 01/02/2024 2:15 PM CDT Appointment [facility] [place] [address] [facility] [address] [place] [phone] Raya Dickens MD [address] [place] [address] 01/02/2024 2:45 PM CDT Office Visit [facility] [place] [address] [facility] [address] [place] [phone] Raya Dickens MD [address] [place] [address] 01/09/2024 3:00 PM CDT Appointment [facility] [place] [address] [place] [address] Raya Dickens MD [address] [place] [address] 01/09/2024 3:30 PM CDT Office Visit [facility] [place] [address] [address] [place] [phone] Raya Dickens MD [address] [place], [place] [address] 01/16/2024 2:15 PM QUALITY SUPERVISOR Appointment [facility] [place] [address] [facility] [address] [place] [phone] Raya Dickens MD [address] [place] [address] 01/16/2024 2:45 PM QUALITY SUPERVISOR Office Visit [facility] [place] [address] [facility] [address] [place] [phone] Raya Dickens MD [address] [place], [place] [address] documented as of this encounter Procedures Procedure Name Priority Date/Time Associated Diagnosis Comments MFM TWINS US COMPREHENSIVE F/U Routine 09/30/2023 9:52 AM CDT 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 documented in this encounter Results * MFM Twins US Comprehensive F/U (09/30/2023 9:52 AM CDT) Anatomical Region Laterality Modality Ultrasound 09/30/2023 9:11 AM CDT Impressions 09/30/2023 10:07 AM CDT IMPRESSION ----- Monochorionic diamniotic twin gestation at 21w 0d gestational age. Fetus 1 1. A normal bladder was visualized. 2. Mild polyhydramnios 3. The umbilical artery Doppler studies demonstrates increased resistance. 4. The middle cerebral artery Doppler studies were within normal limits. Fetus 2 1. A normal bladder was visualized. 2. The amniotic fluid volume appeared normal. 3. The umbilical artery Doppler studies demonstrates increased resistance. 4. The middle cerebral artery Doppler studies were within normal limits. Today's ultrasound does not support a diagnosis of twin twin transfusion syndrome or twin anemia polycythemia syndrome. Narrative 09/30/2023 10:07 AM CDT ? Surveillance ----- Pat. Name: KRISTYN MISHRA ? Study Date: ??09/30/2023 9:11am Pat. NO: ??[id number] ?Referring ??: RAYA SHAH Site: ? Program Arranger: [address] RDMS : ??2000 ?Age: ?? 22 ----- INDICATION ----- Monochorionic, Diamniotic Twin gestation. Elevated Dopplers on Twin B. METHOD ----- Transabdominal ultrasound examination. View: Sufficient ----- Twin . Number of fetuses: 2. Monochorionic-diamniotic DATING ----- ? Date ?Details ?Gest. age ?FERNANDO LMP ?04/29/2023 ?Cycle: irregular cycle ? 22 w + 0 d ? 02/03/2024 Previous U/S ?07/18/2023 ?GA, GA 10 w + 3 d ?21 w + 0 d ? 02/10/2024 Assigned dating ?based on ultrasound (GA), selected on 08/29/2023 ?21 w + 0 d ? 02/10/2024 Fetus 1: GENERAL EVALUATION ----- Cardiac activity present. FHR 149 bpm. movements: visualized. Presentation: breech, maternal right. presenting Placenta: Placental site: anterior Umbilical cord: previously studied Amniotic fluid: Amount of AF: Mild, Polyhydramnios. MVP 9.0 cm Fetus 2: GENERAL EVALUATION ----- Cardiac activity present. FHR 157 bpm. movements: visualized. Presentation: breech, maternal left. superior. Placenta: Placental site: anterior Umbilical cord: previously studied Amniotic fluid: Amount of AF: normal. MVP 7.4 cm Fetus 1: DOPPLER ----- Umbilical Artery: PI ? 1.63 ?97% ? Kunal HR ? 148 ? bpm Mid Cerebral Artery: PS ? 20.36 ?cm/s PS ? 0.76 ?MoM Fetus 2: DOPPLER ----- Umbilical Artery: PI ? 1.63 ?97% ? Kunal HR ? 153 ? bpm Mid Cerebral Artery: PS ? 21.44 ?cm/s PS ? 0.80 ?MoM Fetus 1: TTTS ASSESSMENT ----- Cardiac activity: present Placental location: Anterior Placental cord insertion: ... bladder: normal hydrops: No MVP: 9 cm MCA PSV: 20.36 cm/s ??MCA MoM: 0.76 UA PI: 1.63, 97% Fetus 2: TTTS ASSESSMENT ----- Cardiac activity: present Placental location: anterior Placental cord insertion: ... bladder: normal hydrops: No MVP: 7.4 cm MCA PSV: 21.44 cm/s ??MCA MoM: 0.8 UA PI: 1.63, 97% RECOMMENDATION ----- We discussed the findings on today's ultrasound with the patient. The patient is scheduled to continue weekly TTTS/TAPS assessments. Return to primary provider for continued care. Thank-you for the opportunity to participate in the care of this patient. If you have questions regarding today's evaluation or if we can be of further service, please contact the [facility]. anomalies may be present but not detected Procedure Note Case Berrios MD - 10/08/2023 Surveillance US ----- Pat. Name: KRISTYN MISHRA Study Date: 09/30/2023 9:11am Pat. NO: [id number] Referring MD: RAYA SHAH Site: Program Arranger: [address] RDMS : 2000 Age: 22 ----- INDICATION ----- Monochorionic, Diamniotic Twin gestation. Elevated Dopplers on Twin B. METHOD ----- Transabdominal ultrasound examination. View: Sufficient ----- Twin . Number of fetuses: 2. Monochorionic-diamniotic DATING ----- DateDetailsGest. age FERNANDO LMP 4Cycle: irregular cycle22 w + 0 d 02/03/2024 Previous U/S 07/18/2023 GA, GA10 w + 3 d21 w + 0 d 02/10/2024 Assigned dating based on ultrasound (GA), selected on08/29/2023 21w + 0 d 02/10/2024 Fetus 1: GENERAL EVALUATION ----- Cardiac activity present. FHR 149 bpm. movements: visualized.Presentation: breech, maternal right. presenting Placenta: Placental site: anterior Umbilical cord: previously studied Amniotic fluid: Amount of AF: Mild, Polyhydramnios. MVP 9.0 cm Fetus 2: GENERAL EVALUATION ----- Cardiac activity present. FHR 157 bpm. movements: visualized.Presentation: breech, maternal left. superior. Placenta: Placental site: anterior Umbilical cord: previously studied Amniotic fluid: Amount of AF: normal. MVP 7.4 cm Fetus 1: DOPPLER ----- Umbilical Artery: PI 1.6397%Kunal HR 148bpm Mid Cerebral Artery: PS 20.36cm/s PS 0.76MoM Fetus 2: DOPPLER ----- Umbilical Artery: PI 1.6397%Kunal HR 153bpm Mid Cerebral Artery: PS 21.44cm/s PS 0.80MoM Fetus 1: TTTS ASSESSMENT ----- Cardiac activity: present Placental location: Anterior Placental cord insertion: ... bladder: normal hydrops: No MVP: 9 cm MCA PSV: 20.36 cm/s MCA MoM: 0.76 UA PI: 1.63, 97% Fetus 2: TTTS ASSESSMENT ----- Cardiac activity: present Placental location: anterior Placental cord insertion: ... bladder: normal hydrops: No MVP: 7.4 cm MCA PSV: 21.44 cm/s MCA MoM: 0.8 UA PI: 1.63, 97% RECOMMENDATION ----- We discussed the findings on today's ultrasound with the patient. The patient is scheduled to continue weekly TTTS/TAPS assessments. Return to primary provider for continued care. Thank-you for the opportunity to participate in the care of this patient.If you have questions regarding today's evaluation or if we can be offurther service, please contact the [facility]. anomalies may be present but not detected IMPRESSION ----- Monochorionic diamniotic twin gestation at 21w 0d gestational age. Fetus 1 1. A normal bladder was visualized. 2. Mild polyhydramnios 3. The umbilical artery Doppler studies demonstrates increasedresistance. 4. The middle cerebral artery Doppler studies were within normal limits. Fetus 2 1. A normal bladder was visualized. 2. The amniotic fluid volume appeared normal. 3. The umbilical artery Doppler studies demonstrates increasedresistance. 4. The middle cerebral artery Doppler studies were within normal limits. Today's ultrasound does not support a diagnosis of twin twin transfusionsyndrome or twin anemia polycythemia syndrome. Mica Aguilar MD [facility] US ORDERABLE S documented in this encounter Visit Diagnoses Diagnosis 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 documented in this encounter Care Teams Referral And Information Aide Relationship Specialty Start Date End Date No Ref-Primary, Physician PCP - General 07/22/23 Mica Aguilar MD [address] [address] Assigned OBGYN Provider 08/31/23 documented as of this encounter
--- OUTSIDE RECORDS SUMMARY | 2023-11-18 08:32 | XMS_ITS | Encounter Summary ---
Author Organization [place] Address [address] [facility] [place] [address] Care Team Providers Care Body Maker Name Role Phone No Ref-Primary, Physician Primary Care Provider Mica Aguilar MD Unavailable [phone] Reason for Visit * Reason Comments Ultrasound RL2-TTTS check, Twin A and B: Elevated UAR, Twin A: Mild poly Encounter Details Date Type Department Care Team (Latest Contact Info) Description 10/08/2023 12:15 PM CDT Office Visit [facility] [place] [address] [place] [address] Mica Aguilar MD [address] [place] [address] Case Berrios MD [address] [place] [address] Monochorionic diamniotic twin gestation in [...] Progress Notes * Case Berrios MD - 10/08/2023 12:15 PM CDT Please see Imaging tab under Chart Review for details of today's US at the [facility]. Case Berrios MD Maternal- Medicine documented in this encounter Nursing Notes * Blank Juarez RN - 10/08/2023 12:15 PM CDT Patient presents to [facility] for RL2/TTTS check at 22w1d due to Twin A and B: Elevated UAR, Twin A: Mildpoly. Positive movement x2. Denies LOF, vaginal bleeding or cramping/contractions. Spoke withpt via historic interpreter. SBAR given to Robert FERNADNO, see their note in Epic. documented in this encounter Plan of Treatment Upcoming Encounters Date Type Department Care Team (Late st Contact Info) Description 11/21/2023 10:15 AM CDT Appointment [facility] Maternal Medicine [facility] [address] [place] [phone] Tomasa Dickens MD [address] [place], [place] [phone] Nitin Morris MD [address] [place], [place] [address] 11/21/2023 10:45 AM CDT Office Visit [facility] Medicine [facility] [address] [facility] [address] [place] [phone] Tomasa Dickens MD [address] [place] [address] Nitin Morris MD [address] [place] [address] 12/05/2023 2:15 PM CDT Appointment [facility] Medicine [place] [address] [place] [phone] Tomasa Dickens MD [address] [place] [address] 12/05/2023 2:45 PM CDT Office Visit [facility] [place] [address] [place] [phone] Tomasa Dickens MD [address] [place] [address] 12/19/2023 11:00 AM CDT Appointment [facility] [place] [address] [place] [phone] Tomasa Dickens MD [address] [place], [place] [address] 12/19/2023 11:30 AM CDT Office Visit [facility] [place] [address] [place] [phone] Tomasa Dickens MD [address] [place] [address] 12/26/2023 3:00 PM CDT Appointment [facility] [place] [address] [place] [phone] Tomasa Dickens MD [address] [place] [address] 12/26/2023 3:30 PM CDT Office Visit [facility] [place] [address] [place] [phone] Tomasa Dicknes MD [address] [place] [address] 01/02/2024 2:15 PM CDT Appointment [facility] [place] [address] [place] [phone] Tomasa Dickens MD [address] [place] [address] 01/02/2024 2:45 PM CDT Office Visit [facility] [place] [address] [place] [phone] Tomasa Dickens MD [address] [place] [address] 01/09/2024 3:00 PM CDT Appointment [facility] [place] [address] [place] [phone] Tomasa Dickens MD [address] [place], [place] [address] 01/09/2024 3:30 PM CDT Office Visit [facility] [place] [address] [place] [phone] Tomasa Dickens MD [address] [place], [place] [address] 01/16/2024 2:15 PM GOLF MANAGER Appointment [facility] M[facility] Medicine [facility] [address] [place] [phone] Tomasa Dickens MD [address] [place], [place] [address] 01/16/2024 2:45 PM GOLF MANAGER Office Visit [facility] Medicine [facility] [address] [facility] [address] [place] [phone] Tomasa Dickens MD [address] [place], [place] [address] documented as of this encounter Visit Diagnoses Diagnosis 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- Primary documented in this encounter Care Teams Body Maker Relationship Specialty Start Date End Date No Ref-Primary, Physician PCP - General 07/22/23 Mica Aguilar MD [address] [place] [address] Assigned OBGYN Provider 08/31/23 documented as of this encounter
--- OUTSIDE RECORDS SUMMARY | 2023-11-18 08:32 | XMS_ITS | Encounter Summary ---
Author Organization [place] Address [address] [facility] [place] [address] Care Team Providers Care Utility Worker Roller Shop Name Role Phone No Ref-Primary, Physician Primary Care Provider Mica Aguilar MD Unavailable [phone] Reason for Referral * Diagnostic Imaging Ultrasound (Routine) - Pending Review Specialty Diagnoses / Procedures Referred By Contac t Referred To Contact Radiology. 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 Procedures MFM Twins US Comprehensive F/U Case Berrios MD [address] [place] [address] Referral ID Status Reason Start Date Expiration Date V isits Requested Visits Authorized [id number] Pending Review 09/30/2023 09/29/2024 1 1 Reason for Visit * Reason Comments Ultrasound RL2/UAR/MCA-TTTS marivel ck-mono/di twins Encounter Details Date Type Department Care Team (Latest Contact Info) Description 09/30/2023 9:15 AM CDT Office Visit [facility] M[facility] [place] [address] [facility] [address] [place] [phone] Mica Aguilar MD [address] [place], [place] [address] Case Berrios MD [address] [place] [address] Monochorionic diamniotic twin gestation in [...] Progress Notes * Case Berrios MD - 09/30/2023 9:15 AM CDT Please see Imaging tab under Chart Review for details of today's US at the [facility]. Case Berrios MD Maternal- Medicine documented in this encounter Nursing Notes * Eboni Spencer RN - 09/30/2023 9:15 AM CDT manager enrollment used for [facility] visit via IPAD ID#[id number] documented in this encounter Plan of Treatment Upcoming Encounters Date Type Department Care Team (Late st Contact Info) Description 11/21/2023 10:15 AM CDT Appointment [facility] [place] [address] [facility] [address] [place] [address] Raya Dickens MD [address] [place] [address] Nitin Morris MD [address] [place] [address] 11/21/2023 10:45 AM CDT Office Visit [facility] M[facility] [place] [address] [place] [phone] Raya Dickens MD [address] [place] [address] Nitin Morris MD [address] [place] [address] 12/05/2023 2:15 PM CDT Appointment [facility] Maternal Medicine [place] [address] [place] [phone] Raya Dickens MD [address] [place] [address] 12/05/2023 2:45 PM CDT Office Visit [facility] Maternal Medicine [place] [address] [place] [phone] Raya Dickens MD [address] [place] [address] 12/19/2023 11:00 AM CDT Appointment [facility] Maternal Medicine [place] [address] [place] [phone] Raya Dickens MD [address] [place] [address] 12/19/2023 11:30 AM CDT Office Visit [facility] Maternal Medicine [place] [address] [place] [phone] Raya Dickens MD [address] [place] [address] 12/26/2023 3:00 PM CDT Appointment [facility] [place] [address] [place] [address] Raya Dickens MD [address] [place] [address] 12/26/2023 3:30 PM CDT Office Visit [facility] Maternal Medicine [place] [address] [place] [phone] Raya Dickens MD [address] [place] [address] 01/02/2024 2:15 PM CDT Appointment [facility] Maternal Medicine [place] [address] [place] [phone] Raya Dickens MD [address] [place] [address] 01/02/2024 2:45 PM CDT Office Visit [facility] Maternal Medicine [place] [address] [place] [phone] Raya Dickens MD [address] [place] [address] 01/09/2024 3:00 PM CDT Appointment [facility] M[facility] Medicine [place] [address] [place] [phone] Raya Dickens MD [address] [place] [address] 01/09/2024 3:30 PM CDT Office Visit [facility] Maternal Medicine [place] [address] [place] [phone] Raya Dickens MD [address] [place], [place] [address] 01/16/2024 2:15 PM ACCURACY EXPERT Appointment [facility] Maternal Medicine [place] [address] [place] [phone] Raya Dickens MD [address] [place], [place] [address] 01/16/2024 2:45 PM ACCURACY EXPERT Office Visit [facility] Maternal Medicine [place] [address] [place] [phone] Raya Dickens MD [address] [place], [place] [phone] documented as of this encounter Results * [...] ? Study Date: ??10/24/2023 2:10pm Pat. NO: ??[id number] ?Referring ??: RAYA SHAH Site: ? Supervisor Grips: Sindhu Maurer RDMS : ??2000 ?Age: ?? [...] ?1 lb 5 ?oz EFW by ?Hadlock (DCE-PN-AZ-FL) EFW discordance ?10.4 ?% Head / Face / Neck Biometry: Sales Planning Analyst ?6.1 ? mm CM ? 6.2 ? [...] ?1 lb 8 ?oz EFW by ?Hadlock (RCW-CU-CU-FL) EFW discordance ?10.4 ?% Head / Face / Neck Biometry: Sales Planning Analyst ?8.4 ? mm CM ? 6.3 ? mm Fetus 1: ANATOMY ----- The following structures appear normal: Head / Neck ? Cranium. Head size. Head shape. Lateral ventricles. Midline falx. Cavum septi pellucidi. Cerebellum. Cisterna magna. Thalami. Face ? Lips. Profile. Nose. Heart / Thorax ?4-chamber view. RVOT view. LVOT view. 1-exdchz-waqsjbg view. ? Diaphragm. Abdomen ? Stomach. Kidneys. [...] ? Lips. Profile. Nose. Heart / Thorax ?2-qqnxqh-xseyqzh view. sex: female. Fetus 1: DOPPLER ----- [...] MISHRA Study Date: 10/24/2023 2:10pm Pat. NO: [id number] Referring MD: RAYA SHAH Site: Supervisor Grips: Sindhu Maurer RDMS : 2000 Age: 23 [...] EFW (lb,oz) 1 lb 5oz EFW by Hadlock(OBX-UJ-HI-FL) EFW discordance 10.4% Head / Face / Neck Biometry: Sales Planning Analyst 6.1mm CM 6.2mm Fetus 2: BIOMETRY ----- BPD 55.7mm 23w 0dHadlock OFD 78.1mm 23w 5dNicolaides HC 215.2mm 23w 4dHadlock Cerebellum tr 27.6mm 24w 6dNicolaides AC 200.6mm 24w 5d 50%Hadlock Femur 42.9mm 24w 0dHadlock Weight Calculation: EFW 677g 33%Hadlock EFW (lb,oz) 1 lb 8oz EFW by Hadlock(XLH-SL-FS-FL) EFW discordance 10.4% Head / Face / Neck Biometry: Sales Planning Analyst 8.4mm CM 6.3mm Fetus 1: ANATOMY ----- The following structures appear normal: Head / Neck Cranium. Head size. Head shape.Lateral ventricles. Midline falx. Cavum septi pellucidi. Cerebellum.Cisterna magna. Thalami. Face Lips. Profile. Nose. Heart / Thorax 4-chamber view. RVOT view. LVOT view.5-qfvsgk-eszhdnv view. Diaphragm. Abdomen Stomach. Kidneys. Bladder. The [...] Face Lips. Profile. Nose. Heart / Thorax 1-xootpe-tpibrpl view. sex: female. Fetus 1: DOPPLER ----- [...] anemia polycythemia syndrome. Case Berrios MD IMG MFM US ORDERABL ES documented in this encounter Visit Diagnoses Diagnosis 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- Primary 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 documented in this encounter Care Teams Utility Worker Roller Shop Relationship Specialty Start Date End Date No Ref-Primary, Physician PCP - General 07/22/23 Mica Aguilar MD [address] [place] [address] Assigned OBGYN Provider 08/31/23 documented as of this encounter
--- OUTSIDE RECORDS SUMMARY | 2023-11-18 08:32 | XMS_ITS | Encounter Summary ---
Author Organization [place] Address [address] [place] [address]. 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 Procedures Echo (TTE) Complete Vanita Lin MD [address] [place] [address] [facility] [address] [place] [phone] Referral ID Status Reason Start Date Expiration Date Visits Re quested Visits Authorized [id number] Closed 08/08/2023 08/07/2024 1 1 Reason for Visit * (Routine) - Closed Specialty Diagnoses / Procedures Referred By Contbeata t Referred To Contact Cardiology 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 Procedures Echo (TTE) Vanita Tolbert MD [address] [place] [address] [facility] [address] [place] [phone] Referral ID Status Reason Start Date Expiration Date Visits Re quested Visits Authorized [id number] Closed 08/08/2023 08/07/2024 1 1 Encounter Details Date Type Department Care Team (Latest Contact Info) Description 10/10/2023 10:59 AM CDT - 10/10/2023 11:08 AM CDT Hospital Encounter [facility] [address] [place] [phone] Vanita Lin MD [address] [place] [address] Monochorionic diamniotic twin gestation in [...] Description 11/21/2023 10:[address] [facility] Maternal Medicine Center [place] [address] [facility] [address] [place] [phone] Tomasa Dickens MD [address] [place] [address] Nitin Morris MD [address] [place] [address] 11/21/2023 10:45 AM CDT Office Visit [facility] Maternal Medicine [place] [address] [place] [phone] Tomasa Dickens MD [address] [place] [address] Nitin Morris MD [address] [place] [address] 12/05/2023 2:[address] [facility] Maternal Medicine [place] [address] [place] [phone] Tomasa Dickens MD [address] [place] [address] 12/05/2023 2:45 PM CDT Office Visit [facility] Maternal Medicine [place] [address] [place] [phone] Tomasa Dickens MD [address] [place] [address] 12/19/2023 11:[address] [facility] Maternal Medicine [place] [address] [place] [phone] Tomasa Dickens MD [address] [place] [address] 12/19/2023 11:30 AM CDT Office Visit [facility] Maternal Medicine Center [place] [address] [place] [phone] Tomasa Dickens MD [address] [place] [address] 12/26/2023 3:[address] [facility] Maternal Medicine [place] [address] [place] [phone] Tomasa Dickens MD [address] [place] [address] 12/26/2023 3:30 PM CDT Office Visit [facility] Maternal Medicine [place] [address] [place] [phone] Tomasa Dickens MD [address] [place] [address] 01/02/2024 2:[address] [facility] Maternal Medicine [place] [address] [place] [phone] Tomasa Dickens MD [address] [place] [address] 01/02/2024 2:45 PM CDT Office Visit [facility] Maternal Medicine [place] [address] [place] [phone] Tomasa Dickens MD [address] [place] [address] 01/09/2024 3:[address] [facility] Maternal Medicine [place] [address] [facility] [address] [place] [phone] Tomasa Dickens MD [address] [place] [address] 01/09/2024 3:30 PM CDT Office Visit [facility] [place] [address] [facility] [address] [place] [phone] Tomasa Dickens MD [address] [place] [address] 01/16/2024 2:15 PM HEAD CHOPPER Appointment [facility] [place] [address] [facility] [address] [place] [phone] Tomasa Dickens MD [address] [place] [address] 01/16/2024 2:45 PM HEAD CHOPPER Office Visit [facility] [place] [address] [facility] [address] [place] [phone] Tomasa Dickens MD [address] [place] [address] documented as of this encounter Procedures Procedure Name Priority Date/Time Associated Diagnosis Comments ECHO COMPLETE Routine 10/10/2023 1 :35 PM CDT 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 Study ID: [id number] ?[facility] ?[facility] ?[address] ?[place] [address] ? Echocardiogram Name: KRISTYN MISHRA Study Date: 10/10/2023 12:34 PM ? Patient [...] to the left atrium. There is laminar hsnjw-vj-dlmb shunting across the foramen ovale. Atrioventricular valves: [...] Procedure Note Esequiel Grier MD - 10/10/2023 [id number] [facility] [id number]^MANUEL Study ID:[id number] [place] [address] Echocardiogram Name: KRISTYN MISHRA Study Date: 10/10/2023 12:34 PM Patient Location: [id number] Gender: Female Patient Class:Outpatient : [id number] Age: 22 yrs Ordering Provider: VANITA LIN Referring Provider: VANITA LIN Performed By: Doris Black Physician: Esequiel Grier MD Reason For Study: Monochorionic diamniotic twin gestation in firsttrimester Data: Number of fetuses: This is a [...] in to the left atrium. There is joyygmjkfvtf-ku-vklb shunting across the foramen ovale. 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
--- OUTSIDE RECORDS SUMMARY | 2023-11-18 08:32 | XMS_ITS | Encounter Summary ---
Author Organization [place] Address [address] [place] [address]. [place] [address] Care Team Providers Care Ager Tender Name Role Phone No Ref-Primary, Physician Primary Care Provider Mica Aguilar MD Unavailable [phone] Encounter Details Date Type Department Care Team (Late st Contact Info) Description 10/10/2023 Office Visit [facility] Heart Care [address] [place] [phone] Esequiel Grier MD [address] [place] [phone] cardiac disease affecting , fetus 1 of multiple gestation (Primary Dx); cardiac disease affecting , fetus 2 of multiple gestation Social History Tobacco Use Types Packs/Day Years [...] as of this encounter Progress Notes * Esequiel Grier MD - 10/10/2023 12:27 PM CDT [facility] Consult Note Patient: Kyara Villegas Date of : 2000 Age: [age] year old Date of Visit: 10/10/2023 PCP: No Ref-Primary, Physician Dear No ref. provider found: I had the pleasure of seeing Kyara Villegas at the [facility] on 10/10/2023 in cardiology consultation for echocardiogram results. She presented today accompanied by her . As you know, she is a 22 year old at 22w3d who presented for echocardiogram today because of monochorionic, diamniotic twin gestation. I performed and interpreted the echocardiogram today, which demonstrated: Fetus 1. Normal cardiac anatomy. Normal intracardiac connections. Normal right and leftventricular size and function. Normal right ventricular Tei index at 0.25. Normal left ventricular Tei index at 0.27. No pericardial effusion. Fetus 2. Normal cardiac anatomy. Normal intracardiac connections. Normal right and leftventricular size and function. Normal left ventricular Tei index at 0.42. Normal right ventricular Tei index at 0.40. No pericardial effusion. I reviewed the echo findings today with Kyara Villegas and her partner with the assistance of a plant etiologist. She is aware that the study was within normal limits with no major cardiacabnormalities. She is aware of the general limitations of echocardiography. No additional echocardiograms are recommended. No cardiac follow-up is required. Thank you for allowing me to participate in Kyara's care. Please do not hesitate to contact me withquestions or concerns. This visit was separate from the performance and interpretation of the ultrasound. The majority of the time (>50%) was spent in counseling and coordination of care. I spent approximately 20 minutes in ssam-fp-bbcq time reviewing the above considerations. Esequiel Grier M.D. Pediatric Cardiology [address], 5th floor, [facility] [address] documented in this encounter Plan of Treatment Upcoming Encounters Date Type Department Care Team (Late st Contact Info) Description 11/21/2023 10:15 AM CDT Appointment [facility] Maternal Medicine [place] [address] [facility] [address] [place] [phone] Tomasa Dickens MD [address] [place] [address] Nitin Morris MD [address] [place], [place] [address] 11/21/2023 10:45 AM CDT [facility] Visit [facility] [place] [address] [facility] [address] [place] [phone] Tomasa Dickens MD [address] [place], [place] [phone] Nitin Morris MD [address] [place], [place] [address] 12/05/2023 2:15 PM CDT Appointment [facility] [place] [address] [place] [phone] Tomasa Dickens MD [address] [place], [place] [address] 12/05/2023 2:45 PM CDT Office Visit [facility] Maternal Medicine [place] [address] [facility] [address] [place] [phone] Tomasa Dickens MD [address] [place], [place] [address] 12/19/2023 11:00 AM CDT Appointment [facility] Maternal Medicine [place] [address] [place] [phone] Tomasa Dickens MD [address] [place] [address] 12/19/2023 11:30 AM CDT Office Visit [facility] Maternal Medicine [place] [address] [place] [phone] Tomasa Dickens MD [address] [place] [address] 12/26/2023 3:00 PM CDT Appointment [facility] Maternal Medicine [place] [address] [place] [phone] Tomasa Dickens MD [address] [place] [address] 12/26/2023 3:30 PM CDT Office Visit [facility] Maternal Medicine [place] [address] [place] [phone] Tomasa Dickens MD [address] [place] [address] 01/02/2024 2:15 PM CDT Appointment [facility] Maternal Medicine [place] [address] [place] [phone] Tomasa Dickens MD [address] [place] [address] 01/02/2024 2:45 PM CDT Office Visit [facility] Maternal Medicine [place] [address] [place] [phone] Tomasa Dickens MD [address] [place] [address] 01/09/2024 3:00 PM CDT [facility]ointment [facility] [place] [address] [facility] [address] [place] [phone] Tomasa Dickens MD [address] [place] [address] 01/09/2024 3:30 PM CDT [facility] [place] [address] [facility] [address] [place] [phone] Tomasa Dickens MD [address] [place] [address] 01/16/2024 2:15 PM BLACK AND WHITE PRINTER OPERATOR Appointment [facility] [place] [address] [facility] [address] [place] [phone] Tomasa Dickens MD [address] [place] [address] 01/16/2024 2:45 PM BLACK AND WHITE PRINTER OPERATOR Office Visit [facility] [place] [address] [facility] [address] [place] [phone] Tomasa Dickens MD [address] [place], [place] [address] documented as of this encounter Visit Diagnoses Diagnosis cardiac disease affecting , fetus 1 of multiple gestation- Primary cardiac disease affecting , fetus 2 of multiple gestation documented in this encounter Care Teams Ager Tender Relationship Specialty Start Date End Date No Ref-Primary, Physician PCP - General 07/22/23 Mica Aguilar MD [address] [address] Assigned OBGYN Provider 08/31/23 documented as of this encounter
--- OUTSIDE RECORDS SUMMARY | 2023-11-18 08:32 | XMS_ITS | Encounter Summary ---
Author Organization [place] Address [address] [place] [address]. 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 Procedures Echo (TTE) Complete Vanita Lin MD [address] [place] [address] [place] [address] [facility] [address] [place] [phone] Referral ID Status Reason Start Date Expiration Date Visits Re quested Visits Authorized [id number] Closed 08/08/2023 08/07/2024 1 1 Reason for Visit * (Routine) - Closed Specialty Diagnoses / Procedures Referred By Contbeata t Referred To Contact Cardiology 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 Procedures Echo (TTE) Vanita Tolbert MD [address] [place] [address] [place] [address] [facility] [address] [place] [phone] Referral ID Status Reason Start Date Expiration Date Visits Re quested Visits Authorized [id number] Closed 08/08/2023 08/07/2024 1 1 Encounter Details Date Type Department Care Team (Latest Contact Info) Description 10/10/2023 11:09 AM CDT - 10/10/2023 11:59 PM CDT Hospital Encounter [facility] [address] [place] [phone] Vanita Lin MD [address] [facility] [address] [place] [address] Saray Coker 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 [...] [facility] [place] [address] [facility] [address] [place] [address] Tomasa Dickens MD [address] [place] [address] [place] [address] Nitin Morris MD [address] [place] [address] [place], [place] [address] 11/21/2023 10:45 AM CDT Office Visit [facility] [place] [address] [place] [phone] Tomasa Dickens MD [address] [place] [address] [place], [place] [address] Nitin Morris MD [address] [place] [address] [place] [address] 12/05/2023 2:15 PM CDT Appointment [facility] [place] [address] [place] [phone] Tomasa Dickens MD [address] [place] [address] [place] [phone] 12/05/2023 2:45 PM CDT Office Visit [facility] [place] [address] [place] [phone] Tomasa Dickens MD [address] [place] [address] [place] [address] 12/19/2023 11:00 AM CDT Appointment [facility] [place] [address] [place] [phone] Tomasa Dickens MD [address] [place] [address] [place], [place] [address] 12/19/2023 11:30 AM CDT Office Visit [facility] [place] [address] [place] [phone] Tomasa Dickens MD [address] [place] [address] [place] [address] 12/26/2023 3:00 PM CDT Appointment [facility] [place] [address] [place] [phone] Tomasa Dickens MD [address] [place] [address] [place] [address] 12/26/2023 3:30 PM CDT Office Visit [facility] [place] [address] [place] [phone] Tomasa Dickens MD [address] [place] [address] [place] [address] 01/02/2024 2:15 PM CDT Appointment [facility] [place] [address] [place] [phone] Tomasa Dickens MD [address] [place] [address] [place] [address] 01/02/2024 2:45 PM CDT Office Visit [facility] [place] [address] [place] [phone] Tomasa Dickens MD [address] [place] [address] [place] [address] 01/09/2024 3:00 PM CDT Appointment [facility] [place] [address] [facility] [address] [place] [address] Tomasa Dickens MD [address] [place] [address] [place] [address] 01/09/2024 3:30 PM CDT Office Visit [facility] [place] [address] [facility] [address] [place] [phone] Tomasa Dickens MD [address] [place] [address] [place] [address] 01/16/2024 2:15 PM FINISHING WIRE SAWYER Appointment [facility] [place] [address] [facility] [address] [place] [phone] Tomasa Dickens MD [address] [place] [address] [place] [address] 01/16/2024 2:45 PM FINISHING WIRE SAWYER Office Visit [facility] [place] [address] [facility] [address] [place] [phone] Tomasa Dickens MD [address] [place] [address] [place] [address] documented as of this encounter Procedures Procedure Name Priority Date/Time Associated Diagnosis Comments ECHO - TWIN B COMPLETE Routine 10/10/2023 1:35 PM CDT 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 Study ID: [id number] ?[facility] ?[facility] ?[address] ?[place] [address] ? Echocardiogram Name: KRISTYN MISHRA Study Date: 10/10/2023 12:08 PM ? Patient [...] to the left atrium. There is laminar smybv-ch-yclb shunting across the foramen ovale. Atrioventricular valves: [...] Procedure Note Esequiel Grier MD - 10/10/2023 [id number] [facility] [id number]^MANUEL Study ID:[id number] [facility] [place] [address] Echocardiogram Name: KRISTYN MISHRA Study Date: 10/10/2023 12:08 PM Patient Location: [facility] Gender: Female Patient Class:Outpatient : [id number] Age: [...] in to the left atrium. There is vunxubgmijvq-uq-zksh shunting across the foramen ovale. Atrioventricular valves: [...] trimester documented in this encounter Care Teams Machine Operator Hop Worker Relationship Specialty Start Date End Date No Ref-Primary, Physician PCP - General 07/22/23 Vanita Lin MD [address] [place] [address] Assigned OBGYN Provider 08/31/23 documented as of this encounter
--- OUTSIDE RECORDS SUMMARY | 2023-11-18 08:32 | XMS_ITS | Encounter Summary ---
Author Organization [place] Address [address] [facility] [place] [address] Care Team Providers Care Medical Superintendent Name Role Phone No Ref-Primary, Physician Primary Care Provider Mica Aguilar MD Unavailable [phone] Encounter Details Date Type Department Care Team (Latest Contact Info) Description 09/30/2023 Travel Social History Tobacco Use Types Packs/Day [...] Info) Description 11/21/2023 10:15 AM CDT Appointment [facility] [place] [address] [facility] [address] [place] [address] Tomasa Dickens MD [address] [place] [address] [place], [place] [address] Nitin Morris MD [address] [place] [address] [place] [address] 11/21/2023 10:45 AM CDT Office Visit [facility] [place] [address] [place] [phone] Tomasa Dickens MD [address] [place] [address] [place] [address] Nitin Morris MD [address] [place] [address] [place] [address] 12/05/2023 2:15 PM CDT Appointment [facility] [place] [address] [place] [address] Tomasa Dickens MD [address] [place] [address] [place] [address] 12/05/2023 2:45 PM CDT Office Visit [facility] [place] [address] [place] [phone] Tomasa Dickens MD [address] [place] [address] [place] [address] 12/19/2023 11:00 AM CDT Appointment [facility] [place] [address] [place] [phone] Tomasa Dickens MD [address] [place] [address] [place] [address] 12/19/2023 11:30 AM CDT Office Visit [facility] [place] [address] [place] [address] Tomasa Dickens MD [address] [place] [address] [place] [address] 12/26/2023 3:00 PM CDT Appointment [facility] [place] [address] [place] [phone] Tomasa Dickens MD [address] [place] [address] [place] [address] 12/26/2023 3:30 PM CDT Office Visit [facility] [place] [address] [place] [phone] Tomasa Dickens MD [address] [place] [address] [place] [address] 01/02/2024 2:15 PM CDT Appointment [facility] [place] [address] [place] [phone] Tomasa Dickens MD [address] [place] [address] [place] [address] 01/02/2024 2:45 PM CDT Office Visit [facility] [place] [address] [place] [address] Tomasa Dickens MD [address] [place] [address] [place] [address] 01/09/2024 3:00 PM CDT Appointment [facility] [place] [address] [place] [phone] Tomasa Dickens MD [address] [place] [address] [place] [address] 01/09/2024 3:30 PM CDT Office Visit [facility] Maternal [facility] [place] [address] [facility] [address] [place] [phone] Tomasa Dickens MD [address] [place] [address] [place], [place] [address] 01/16/2024 2:15 PM MOTION GRAPHICS ARTIST Appointment [facility] Medicine [place] [address] [facility] [address] [place] [phone] Tomasa Dickens MD [address] [place] [address] [place] [address] 01/16/2024 2:45 PM MOTION GRAPHICS ARTIST Office Visit [facility]aternal [facility] [place] [address] [facility] [address] [place] [phone] Tomasa Dickens MD [address] [place] [address] [place], [place] [phone] documented as of this encounter Visit Diagnoses Not on filedocumented in this encounter Care Teams Medical Superintendent Relationship Specialty Start Date End Date No Ref-Primary, Physician PCP - General 07/22/23 Mica Aguilar MD [address] [place] [address] [place] [address] Assigned OBGYN Provider 08/31/23 documented as of this encounter
--- OUTSIDE RECORDS SUMMARY | 2023-11-18 08:33 | XMS_ITS | Encounter Summary ---
Author Organization [place] Address [address] [place] [address]. [place] [address] Care Team Providers Care Clerk Supervisor Name Role Phone No Ref-Primary, Physician Primary Care Provider Mica Aguilar MD Unavailable [phone] Encounter Details Date Type Department Care Team (Late st Contact Info) Description 09/26/2023 1:30 PM CDT Office Visit [facility] Application Development Team Lead Services [address] [place] [phone] Lamar Griffith Social History Tobacco Use Types Packs/Day Years [...] Info) Description 11/21/2023 10:15 AM CDT Appointment [facility] M[facility] [place] [address] [facility] [address] [place] [address] Tomasa Dickens MD [address] [place] [address] [place] [address] Nitin Morris MD [address] [place] [address] [place] [address] 11/21/2023 10:45 AM CDT Office Visit [facility] M[facility] Medicine [place] [address] [place] [phone] Tomasa Dickens MD [address] [place] [address] [place], [place] [address] Nitin Morris MD [address] [place] [address] [place] [address] 12/05/2023 2:15 PM CDT Appointment [facility] [place] [address] [place] [phone] Tomasa Dickens MD [address] [place] [address] [place] [address] 12/05/2023 2:45 PM CDT Office Visit [facility] [place] [address] [place] [phone] Tomasa Dickens MD [address] [place] [address] [place] [address] 12/19/2023 11:00 AM CDT Appointment [facility] [place] [address] [place] [phone] Tomasa Dickens MD [address] [place] [address] [place] [address] 12/19/2023 11:30 AM CDT Office Visit [facility] [place] [address] [place] [phone] Tomasa Dickens MD [address] [place] [address] [place] [address] 12/26/2023 3:00 PM CDT Appointment [facility] [place] [address] [place] [phone] Tomasa Dickens MD [address] [place] [address] [place] [address] 12/26/2023 3:30 PM CDT Office Visit [facility] [place] [address] [place] [phone] Tomasa Dickens MD [address] [place] [address] [place] [address] 01/02/2024 2:15 PM CDT Appointment [facility] [place] [address] [place] [phone] Tomasa Dickens MD [address] [place] [address] [place] [address] 01/02/2024 2:45 PM CDT Office Visit [facility] [place] [address] [place] [phone] Tomasa Dickens MD [address] [place] [address] [place] [address] 01/09/2024 3:00 PM CDT Appointment [facility] [place] [address] [facility] [address] [place] [phone] Tomasa Dickens MD [address] [place] [address] [place] [address] 01/09/2024 3:30 PM CDT Office Visit [facility] Medicine [place] [address] [facility] [address] [place] [phone] Tomasa Dickens MD [address] [place] [address] 01/16/2024 2:15 PM BOILER OPERATOR Appointment [facility] Medicine [place] [address] [facility] [address] [place] [phone] Tomasa Dickens MD [address] [place] [address] [place] [address] 01/16/2024 2:45 PM BOILER OPERATOR Office Visit [facility] [place] [address] [facility] [address] [place] [phone] Tomasa Dickens MD [address] [place] [address] [place] [address] documented as of this encounter Visit Diagnoses Not on filedocumented in this encounter Care Teams Clerk Supervisor Relationship Specialty Start Date End Date No Ref-Primary, Physician PCP - General 07/22/23 Mica Aguilar MD [address] [place] [address] [place] [address] Assigned OBGYN Provider 08/31/23 documented as of this encounter
--- OUTSIDE RECORDS SUMMARY | 2023-11-18 08:33 | XMS_ITS | Encounter Summary ---
Author Organization [place] Address [address] [place] [address]. [place] [address] Care Team Providers Care Fac Engineer Name Role Phone No Ref-Primary, Physician Primary Care Provider Mica Aguilar MD Unavailable [phone] Reason for Referral * Diagnostic Imaging Ultrasound (Routine) - Pending Review Specialty Diagnoses / Procedures Referred By Contac t Referred To Contact Radiology. 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 Procedures MFM Twins Mica Jain MD [address] [place] [address] Referral ID Status Reason Start Date Expiration Date V isits Requested Visits Authorized [id number] Pending Review 08/08/2023 08/07/2024 1 1 Encounter Details Date Type Department Care Team (Latest Contact Info) Description 09/26/2023 1:22 PM CDT - 09/26/2023 4:42 PM CDT Hospital Encounter [facility] [address] [facility] [address] [place] [phone] Mica Aguilar MD [address] [place] [address] Angelica Wright MD [address] [place] [address] Monochorionic diamniotic twin gestation in [...] Date End Date acetaminophen (TYLENOL) 325 MG tabletIndications:Cervic al shortening affecting in second trimester Take 1-2 tablets (325-650 mg) by mouth every 6 hours as needed for mild pain 30 tablet 09/28/2023 documented as of this encounter Plan of Treatment Upcoming Encounters Date Type Department Care Team (Late st Contact Info) Description 11/21/2023 10:15 AM CDT Appointment [facility] [address] [facility] [address] [place] [phone] Raya Dickens MD [address] [place] [address] Nitin Morris MD [address] [place] [address] 11/21/2023 10:45 AM CDT Office Visit [facility] [place] [address] [place] [phone] Raya Dickens MD [address] [place] [address] Nitin Morris MD [address] [place] [address] 12/05/2023 2:15 PM CDT Appointment [facility] [place] [address] [place] [phone] Raya Dickens MD [address] [place] [address] 12/05/2023 2:45 PM CDT Office Visit [facility] [place] [address] [place] [phone] Raya Dickens MD [address] [place] [address] 12/19/2023 11:00 AM CDT Appointment [facility] [place] [address] [place] [phone] Raya Dickens MD [address] [place] [address] 12/19/2023 11:30 AM CDT Office Visit [facility] [place] [address] [place] [phone] Raya Dickens MD [address] [place] [address] 12/26/2023 3:00 PM CDT Appointment [facility] [place] [address] [place] [address] Raya Dickens MD [address] [place] [address] 12/26/2023 3:30 PM CDT Office Visit [facility] [place] [address] [place] [phone] Raya Dickens MD [address] [place] [address] 01/02/2024 2:15 PM CDT Appointment [facility] [place] [address] [place] [phone] Raya Dickens MD [address] [place] [address] 01/02/2024 2:45 PM CDT Office Visit [facility] [place] [address] [place] [address] Raya Dickens MD [address] [place] [address] 01/09/2024 3:00 PM CDT Appointment [facility] [place] [address] [place] [phone] Raya Dickens MD [address] [place] [address] 01/09/2024 3:30 PM CDT Office Visit [facility] Medicine [place] [address] [place] [phone] Raya Dickens MD [address] [place], [place] [address] 01/16/2024 2:15 PM GUIDANCE SERVICES COORDINATOR Appointment [facility] [place] [address] [place] [phone] Raya Dickens MD [address] [place] [address] 01/16/2024 2:45 PM GUIDANCE SERVICES COORDINATOR Office Visit [facility] Medicine [place] [address] [place] [phone] Raya Dickens MD [address] [place], [place] [address] documented as of this encounter Procedures Procedure Name Priority Date/Time Associated Diagnosis Comments MFM TWINS US COMPREHENSIVE Routine 09/26/2023 3:21 PM CDT 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 documented in this encounter Results * MFM Twins US Comprehensive (09/26/2023 3:21 [...] 5:10 PM CDT ?Comprehensive ----- Pat. Name: KRISTYN MISHRA ? Study Date: ??09/26/2023 1:31pm Pat. NO: ??[id number] ?Referring ??MD: RAYA SHAH Site: ? Yarn Dumper: [address] RDMS : ??2000 ?Age: ?? [...] lb 11 ? oz EFW by ?Hadlock ([id number]-FL) EFW discordance ?13.8 ?% Head / Face / Neck Biometry: Stenotype Machine Operator ?5.3 ? mm CM ? 2.4 ? [...] lb 13 ? oz EFW by ?Hadlock ([id number]-ZN-IV-FL) EFW discordance ?13.8 ?% Head / Face / Neck Biometry: Stenotype Machine Operator ?6.9 ? mm CM ? 4.3 ? [...] view. RVOT view. LVOT view. 3-vessel view. 5-dhxowv-sorstql view. Situs. Aortic arch view. Bicaval view. [...] view. RVOT view. LVOT view. 3-vessel view. 6-iqgodb-luqessp view. Situs. Aortic arch view. Bicaval view. [...] placement were reviewed with the couple and Kristyn would like to proceed with cerclage. Patient [...] the patient (reviewing medical records/tests), in direct snaf-zg-ckrq contact with the patient during her visit with the majority spent counseling and discussing the plan of care and documenting the visit in the electronic medical record. Please see note for details. Procedure Note Angelica Wright MD - 10/08/2023 Comprehensive ----- Pat. Name: KRISTYN MISHRA Study Date: 09/26/2023 1:31pm Pat. NO: [id number] Referring MD: RAYA SHAH Site: Yarn Dumper: [address] RDMS : 2000 Age: 22 [...] EFW (lb,oz) 0 lb 11oz EFW by Hadlock(ZXL-JL-XR-FL) EFW discordance 13.8% Head / Face / Neck Biometry: Stenotype Machine Operator 5.3mm CM 2.4mm Nasal bone 5.9mm Fetus 2: BIOMETRY ----- BPD 46.2mm 20w 0dHadlock OFD 62.0mm 20w 0dNicolaides HC 172.9mm 19w 6dHadlock Cerebellum tr 19.7mm 18w 6dNicolaides Nuchal fold 4.4mm AC 155.0mm 20w 5d 52%Hadlock Femur 34.9mm 21w 0dHadlock Humerus 30.9mm 20w 2dJeanty Weight Calculation: EFW 371g 59%Hadlock EFW (lb,oz) 0 lb 13oz EFW by Hadlock(KNX-RA-PE-FL) EFW discordance 13.8% Head / Face / Neck Biometry: Stenotype Machine Operator 6.9mm CM 4.3mm Nasal bone 5.8mm Fetus 1: ANATOMY ----- The following structures appear normal: Head / Neck Cranium. Head size. Head shape.Lateral ventricles. Choroid plexus. Midline falx. Cavum septi pellucidi.Cerebellum. Cisterna magna. Parenchyma. Thalami. Vermis. Neck. Nuchal fold. Face Lips. Profile. Nose. Maxilla.Mandible. Orbits. Lens. Heart / Thorax 4-chamber view. RVOT view. LVOT view.3-vessel view. 0-lczjnm-zdmznbi view. Situs. Aortic arch view. Bicavalview. Ductal [...] 4-chamber view. RVOT view. LVOT view.3-vessel view. 2-dnplrz-sdoqgjr view. Situs. Aortic arch view. Bicavalview. Ductal [...] cerclage placement were reviewed withthe couple and Kristyn would like to proceed with cerclage. Patient [...] see the patient (reviewing medical records/tests), in xjxwibtvde-gv-qakg contact with the patient during her visit [...] a shortened residual length of 8 mm. Mica Aguilar MD [facility] US ORDERABLE S documented in this encounter Visit Diagnoses Diagnosis 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 documented in this encounter Care Teams Fac Engineer Relationship Specialty Start Date End Date No Ref-Primary, Physician PCP - General 07/22/23 Mica Aguilar MD [address] [address] Assigned OBGYN Provider 08/31/23 documented as of this encounter
--- OUTSIDE RECORDS SUMMARY | 2023-11-18 08:33 | XMS_ITS | Encounter Summary ---
Author Organization [place] Address [address] [facility] [place] [address] Care Team Providers Care Line Up Machine Operator Name Role Phone No Ref-Primary, Physician Primary Care Provider Reason for Visit * Reason Onset Date Comments Results 08/14/2023 Low Risk NIPT Encounter Details Date Type Department Care Team (Late st Contact Info) Description 08/14/2023 Telephone [facility] Medicine [facility] [address] [place] [address] Nelsy Diaz, [address] [address] Results (Low Risk NIPT ) Social [...] Info) Description 11/21/2023 10:15 AM CDT Appointment [facility] [address] [place] [address] Tomasa Dickens MD [address] [place], [place] [address] Nitin Morris MD [address] [place], [place] [address] 11/21/2023 10:45 AM CDT Office Visit [facility] [place] [address] [place] [phone] Tomasa Dickens MD [address] [place], [place] [address] Nitin Morris MD [address] [place], [place] [address] 12/05/2023 2:15 PM CDT Appointment [facility] [place] [address] [place] [phone] Tomasa Dickens MD [address] [place], [place] [address] 12/05/2023 2:45 PM CDT Office Visit [facility] [place] [address] [place] [phone] Tomasa Dickens MD [address] [place], [place] [address] 12/19/2023 11:00 AM CDT Appointment [facility] [place] [address] [place] [address] Tomasa Dickens MD [address] [place], [place] [address] 12/19/2023 11:30 AM CDT Office Visit [facility] [place] [address] [place] [phone] Tomasa Dickens MD [address] [place] [address] 12/26/2023 3:00 PM CDT Appointment [facility] [place] [address] [place] [phone] Tomasa Dickens MD [address] [place] [address] 12/26/2023 3:30 PM CDT Office Visit [facility] [place] [address] [place] [phone] Tomasa Dickens MD [address] [place] [address] 01/02/2024 2:15 PM CDT Appointment [facility] [place] [address] [place] [phone] Tomasa Dickens MD [address] [place] [address] 01/02/2024 2:45 PM CDT Office Visit [facility] [place] [address] [place] [phone] Tomasa Dickens MD [address] [place] [address] 01/09/2024 3:00 PM CDT Appointment [facility] [place] [address] [place] [address] Tomasa Dickens MD [address] [place] [address] 01/09/2024 3:30 PM CDT Office Visit [facility] Medicine [place] [address] [facility] [address] [place] [phone] Tomasa Dickens MD [address] [place], [place] [address] 01/16/2024 2:15 PM HEMATOLOGY NURSE Appointment [facility] Medicine [place] [address] [facility] [address] [place] [phone] Tomasa Dickens MD [address] [place] [address] 01/16/2024 2:45 PM HEMATOLOGY NURSE Office Visit [facility] [place] [address] [facility] [address] [place] [phone] Tomasa Dickens MD [address] [place], [place] [address] documented as of this encounter Visit Diagnoses Not on filedocumented in this encounter Care Teams Line Up Machine Operator Relationship Specialty Start Date End Date No Ref-Primary, Physician PCP - General 07/22/23 documented as of this encounter
--- OUTSIDE RECORDS SUMMARY | 2023-11-18 08:33 | XMS_ITS | Encounter Summary ---
Author Organization [place] Address [address] [facility] [place] [address] Care Team Providers Care Emergency Medicine Medical Director Name Role Phone No Ref-Primary, Physician Primary [...] Info) Description 11/21/2023 10:15 AM CDT Appointment [facility] [place] [address] [place] [address] Tomasa Dickens MD [address] [place] [address] Nitin Morris MD [address] [place], [place] [address] 11/21/2023 10:45 AM CDT Office Visit [facility] [place] [address] [place] [address] Tomasa Dickens MD [address] [place] [address] Nitin Morris MD [address] [place] [address] 12/05/2023 2:15 PM CDT Appointment [facility] [place] [address] [place] [phone] Tomasa Dickens MD [address] [place] [address] 12/05/2023 2:45 PM CDT Office Visit [facility] [place] [address] [place] [phone] Tomasa Dickens MD [address] [place] [address] 12/19/2023 11:00 AM CDT Appointment [facility] [place] [address] [place] [phone] Tomasa Dickens MD [address] [place] [address] 12/19/2023 11:30 AM CDT Office Visit [facility] [place] [address] [place] [phone] Tomasa Dickens MD [address] [place] [address] 12/26/2023 3:00 PM CDT Appointment [facility] [place] [address] [place] [phone] Tomasa Dickens MD [address] [place] [address] 12/26/2023 3:30 PM CDT Office Visit [facility] [place] [address] [place] [phone] Tomasa Dickens MD [address] [place] [address] 01/02/2024 2:15 PM CDT Appointment [facility] [place] [address] [place] [phone] Tomasa Dickens MD [address] [place] [address] 01/02/2024 2:45 PM CDT Office Visit [facility] [place] [address] [place] [phone] Tomasa Dickens MD [address] [place] [address] 01/09/2024 3:00 PM CDT Appointment [facility] [place] [address] [place] [phone] Tomasa Dickens MD [address] [place] [address] 01/09/2024 3:30 PM CDT Office Visit [facility] [place] [address] [place] [phone] Tomasa Dickens MD [address] [place], [place] [address] 01/16/2024 2:15 PM QUALITY CONTROL CHEMIST Appointment [facility] Medicine [place] [address] [facility] [address] [place] [phone] Tomasa Dickens MD [address] [place], [place] [address] 01/16/2024 2:45 PM QUALITY CONTROL CHEMIST Office Visit [facility] [place] [address] [address] [facility] [address] [place] [phone] Tomasa Dickens MD [address] [place], [place] [address] documented as of this encounter Visit Diagnoses Not on filedocumented in this encounter Care Teams Emergency Medicine Medical Director Relationship Specialty Start Date End Date No Ref-Primary, Physician PCP - General 07/22/23 documented as of this encounter
--- OUTSIDE RECORDS SUMMARY | 2023-11-18 08:33 | XMS_ITS | Encounter Summary ---
Author Organization [place] Address [address] [facility] [place] [address] Care Team Providers Care Dress Designer Name Role Phone No Ref-Primary, Physician Primary Care Provider Mica Aguilar MD Unavailable [phone] Encounter Details Date Type Department Care Team (Latest Contact Info) Description 09/26/2023 Travel Social History Tobacco Use Types Packs/Day [...] Info) Description 11/21/2023 10:15 AM CDT Appointment [facility] [place] [address] [facility] [address] [place] [address] Tomasa Dickens MD [address] [place], [place] [address] Nitin Morris MD [address] [place] [address] 11/21/2023 10:45 AM CDT Office Visit [facility] [place] [address] [place] [phone] Tomasa Dickens MD [address] [place] [address] Nitin Morris MD [address] [place] [address] 12/05/2023 2:15 PM CDT Appointment [facility] Medicine [place] [address] [place] [phone] Tomasa Dickens MD [address] [place] [address] 12/05/2023 2:45 PM CDT Office Visit [facility] Medicine [place] [address] [place] [phone] Tomasa Dickens MD [address] [place] [address] 12/19/2023 11:00 AM CDT Appointment [facility] Medicine [place] [address] [place] [phone] Tomasa Dickens MD [address] [place] [address] 12/19/2023 11:30 AM CDT Office Visit [facility] Medicine [place] [address] [place] [phone] Tomasa Dickens MD [address] [place] [address] 12/26/2023 3:00 PM CDT Appointment [facility] [place] [address] [place] [phone] Tomasa Dickens MD [address] [place] [address] 12/26/2023 3:30 PM CDT Office Visit [facility] Medicine [place] [address] [place] [phone] Tomasa Dickens MD [address] [place] [address] 01/02/2024 2:15 PM CDT Appointment [facility] [place] [address] [place] [phone] Tomasa Dickens MD [address] [place] [address] 01/02/2024 2:45 PM CDT Office Visit [facility] [place] [address] [place] [phone] Tomasa Dickens MD [address] [place] [address] 01/09/2024 3:00 PM CDT Appointment [facility] [place] [address] [place] [phone] Tomasa Dickens MD [address] [place] [address] 01/09/2024 3:30 PM CDT Office Visit [facility] Medicine [place] [address] [facility] [address] [place] [phone] Tomasa Dickens MD [address] [place], [place] [address] 01/16/2024 2:15 PM WIRE FRAME LAMPSHADE MAKER Appointment [facility] Medicine [place] [address] [facility] [address] [place] [phone] Tomasa Dickens MD [address] [place] [address] 01/16/2024 2:45 PM WIRE FRAME LAMPSHADE MAKER Office Visit [facility] Medicine [place] [address] [facility] [address] [place] [phone] Tomasa Dickens MD [address] [place], [place] [address] documented as of this encounter Visit Diagnoses Not on filedocumented in this encounter Care Teams Dress Designer Relationship Specialty Start Date End Date No Ref-Primary, Physician PCP - General 07/22/23 Mica Aguilar MD [address] [place] [address] Assigned OBGYN Provider 08/31/23 documented as of this encounter
--- OUTSIDE RECORDS SUMMARY | 2023-11-18 08:33 | XMS_ITS | Encounter Summary ---
Author Organization [place] [facility] [address] Care Team Providers Care Photogrammetric Tech Name Role Phone No Ref-Primary, Physician Primary Care Provider Mica Aguilar MD Unavailable [phone] Reason for Visit * Reason Comments Ultrasound L2-[facility]/Di twins Encounter Details Date Type Department Care Team (Latest Contact Info) Description 09/26/2023 2:45 PM CDT Office Visit [facility] [place] [address] [place] [address] Mica Aguilar MD [address] [facility] [address] [place] [address] Angelica Wright MD [address] [place] [address] [place] [address] 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 (Primary Dx); Cervical insufficiency during in second trimester, antepartum Social History Tobacco Use Types Packs/Day Years [...] Progress Notes * Angelica Wright MD - 09/26/2023 2:45 PM CDT Please see Imaging tab under Chart Review for details of today's visit. Angelica Wright documented in this encounter Nursing Notes * Blank Juarez RN - 09/26/2023 2:45 PM CDT Patient presents to [facility] for L2 at 20w3d due to M/D twins. Positive movement x2. Denies LOF, vaginal bleeding or cramping/contractions. SBAR given to [facility] MD, see their note in Epic. documented in this encounter Plan of Treatment Upcoming Encounters Date Type Department Care Team (Late st Contact Info) Description 11/21/2023 10:15 AM CDT Appointment [facility] [place] [address] [place] [address] [phone] Tomasa Dickens MD [address] [place] [address] [place], [place] [address] Nitin Morris MD [address] [place] [address] [place], [place] [address] 11/21/2023 10:45 AM CDT Office Visit [facility] [place] [address] [place] [address] [phone] Tomasa Dickens MD [address] [place] [address] [place], [place] [address] Nitin Morris MD [address] [place] [address] [place], [place] [address] 12/05/2023 2:15 PM CDT Appointment [facility] [place] [address] [place] [address] Tomasa Dickens MD [address] [place] [address] [place] [address] 12/05/2023 2:45 PM CDT Office Visit [facility] [place] [address] [place] [address] [phone] Tomasa Dickens MD [address] [place] [address] [place], [place] [address] 12/19/2023 11:00 AM CDT Appointment [facility] [place] [address] [place] [phone] Tomasa Dickens MD [address] [place] [address] [place], [place] [address] 12/19/2023 11:30 AM CDT Office Visit [facility] [place] [address] [place] [phone] Tomasa Dickens MD [address] [place] [address] [place], [place] [address] 12/26/2023 3:00 PM CDT Appointment [facility] [place] [address] [place] [phone] Tomasa Dickens MD [address] [place] [address] [place] [address] 12/26/2023 3:30 PM CDT Office Visit [facility] [place] [address] [place] [phone] Tomasa Dickens MD [address] [place] [address] [place] [address] 01/02/2024 2:15 PM CDT Appointment [facility] [place] [address] [place] [phone] Tomasa Dickens MD [address] [place] [address] [place] [address] 01/02/2024 2:45 PM CDT Office Visit [facility] [place] [address] [place] [phone] Tomasa Dickens MD [address] [place] [address] [place] [address] 01/09/2024 3:00 PM CDT Appointment [facility] [place] [address] [place] [phone] Tomasa Dickens MD [address] [place] [address] [place] [address] 01/09/2024 3:30 PM CDT Office Visit [facility] [place] [address] [place] [phone] Tomasa Dickens MD [address] [place] [address] [place] [address] 01/16/2024 2:15 PM VEGETABLE COOK Appointment [facility] [address] [place] [phone] Tomasa Dickens MD [address] [place] [address] [place], [place] [address] 01/16/2024 2:45 PM VEGETABLE COOK Office Visit [facility] [address] [place] [phone] Tomasa Dickens MD [address] [place] [address] [place] [address] documented as of this encounter Visit Diagnoses Diagnosis 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- Primary Cervical insufficiency during in second trimester, antepartum documented in this encounter Care Teams Photogrammetric Tech Relationship Specialty Start Date End Date No Ref-Primary, Physician PCP - General 07/22/23 Mica Aguilar MD [address] [place] [address] [place] [address] Assigned OBGYN Provider 08/31/23 documented as of this encounter
--- OUTSIDE RECORDS SUMMARY | 2023-11-18 08:33 | XMS_ITS | Encounter Summary ---
Author Organization [place] Address [address] [facility] [place] [address] Care Team Providers Care Lumber Piler Name Role Phone No Ref-Primary, Physician Primary Care Provider Reason for Visit * Reason Comments Ultrasound 2/3 complete-mono/di twins Encounter Details Date Type Department Care Team (Latest Contact Info) Description 08/29/2023 2:00 PM CDT Office Visit [facility] [place] [address] [facility] [address] [place] [phone] Mica Aguilar MD [address] [place] [address] [place] [address] Case Berrios MD [address] [place] [address] [place] [address] Monochorionic diamniotic twin gestation in [...] for details of today's US at the [facility]. Case Berrios MD Maternal- Medicine documented in this encounter Plan of Treatment Upcoming Encounters Date Type Department Care Team (Late st Contact Info) Description 11/21/2023 10:15 AM CDT Appointment [facility] [place] [address] [place] [phone] Tomasa Dickens MD [address] [place] [address] [place], [place] [address] Nitin Morris MD [address] [place] [address] [place], [place] [address] 11/21/2023 10:45 AM CDT Office Visit [facility] [place] [address] [place] [address] [phone] Tomasa Dickens MD [address] [place] [address] [place], [place] [address] Nitin Morris MD [address] [place] [address] [place], [place] [address] 12/05/2023 2:15 PM CDT Appointment [facility] [place] [address] [place] [address] [phone] Tomasa Dickens MD [address] [place] [address] [place], [place] [address] 12/05/2023 2:45 PM CDT Office Visit [facility] [place] [address] [place] [phone] Tomasa Dickens MD [address] [place] [address] [place] [address] 12/19/2023 11:00 AM CDT Appointment [facility] [place] [address] [place] [phone] Tomasa Dickens MD [address] [place] [address] [place] [address] 12/19/2023 11:30 AM CDT Office Visit [facility] [place] [address] [place] [phone] Tomasa Dickens MD [address] [place] [address] [place] [address] 12/26/2023 3:00 PM CDT Appointment [facility] [place] [address] [place] [phone] Tomasa Dickens MD [address] [place] [address] [place] [address] 12/26/2023 3:30 PM CDT Office Visit [facility] [place] [address] [place] [phone] Tomasa Dickens MD [address] [place] [address] [place] [address] 01/02/2024 2:15 PM CDT Appointment [facility] [place] [address] [place] [phone] Tomasa Dickens MD [address] [place] [address] [place] [address] 01/02/2024 2:45 PM CDT Office Visit [facility] [place] [address] [place] [phone] Tomasa Dickens MD [address] [place] [address] [place] [address] 01/09/2024 3:00 PM CDT Appointment [facility] [place] [address] [place] [phone] Tomasa Dickens MD [address] [place] [address] [place] [address] 01/09/2024 3:30 PM CDT Office Visit [facility] [place] [address] [place] [phone] Tomasa Dickens MD [address] [place] [address] [place] [address] 01/16/2024 2:15 PM CREW TRAINER Appointment [facility] [place] [address] [place] [phone] Tomasa Dickens MD [address] [place] [address] [place] [address] 01/16/2024 2:45 PM CREW TRAINER Office Visit [facility] [place] [address] [place] [phone] Tomasa Dickens MD [address] [place] [address] [place] [address] documented as of this encounter Visit Diagnoses Diagnosis 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- Primary documented in this encounter Care Teams Lumber Piler Relationship Specialty Start Date End Date No Ref-Primary, Physician PCP - General 07/22/23 documented as of this encounter
--- OUTSIDE RECORDS SUMMARY | 2023-11-18 08:33 | XMS_ITS | Encounter Summary ---
Author Organization [place] Address [address] [place] [address]. [place] [address] Care Team Providers Care Instrument Assembler Name Role Phone No Ref-Primary, Physician Primary Care Provider Reason for Referral * Diagnostic Imaging Ultrasound (Routine) - Pending Review Specialty Diagnoses / Procedures Referred By Contac t Referred To Contact Radiology. 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 Procedures MFM Twins US OB Complete 2/3 Tri Mica Aguilar MD [address] [address] Referral ID Status Reason Start Date Expiration Date V isits Requested Visits Authorized [id number] Pending Review 08/08/2023 08/07/2024 1 1 Reason for Visit * Diagnostic Imaging Ultrasound (Routine) - Pending Review Specialty Diagnoses / Procedures Referred By Contac t Referred To Contact Radiology. 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 Procedures MFM Twins US OB Complete 2/3 Tri Mica Aguilar MD [address] [place] [address] Referral ID Status Reason Start Date Expiration Date V isits Requested Visits Authorized [id number] Pending Review 08/08/2023 08/07/2024 1 1 Encounter Details Date Type Department Care Team (Latest Contact Info) Description 08/29/2023 1:19 PM CDT - 08/29/2023 11:59 PM CDT Hospital Encounter [facility] [place] [address] [place] [phone] Mica Aguilar MD [address] [place] [address] [place], [place] [phone] Case Berrios MD [address] [place] [address] [place] [address] Monochorionic diamniotic twin gestation in [...] Info) Description 11/21/2023 10:15 AM CDT Appointment [facility] Medicine [place] [address] [place] [phone] Raya Dickens MD [address] [place] [address] [place], [place] [address] Nitin Morris MD [address] [place] [address] [place], [place] [address] 11/21/2023 10:45 AM CDT Office Visit [facility] [place] [address] [place] [phone] Raya Dickens MD [address] [place] [address] [place] [address] Nitin Morris MD [address] [address] [place] [address] 12/05/2023 2:15 PM CDT Appointment [facility] [place] [address] [place] [phone] Raya Dickens MD [address] [address] [place] [address] 12/05/2023 2:45 PM CDT Office Visit [facility] [place] [address] [place] [phone] Raya Dickens MD [address] [address] [place] [address] 12/19/2023 11:00 AM CDT Appointment [facility] [place] [address] [place] [phone] Raya Dickens MD [address] [place] [address] 12/19/2023 11:30 AM CDT Office Visit [facility] [place] [address] [place] [phone] Raya Dickens MD [address] [place] [address] 12/26/2023 3:00 PM CDT Appointment [facility] [place] [address] [place] [phone] Raya Dickens MD [address] [place] [address] 12/26/2023 3:30 PM CDT Office Visit [facility] [place] [address] [place] [phone] Raya Dickens MD [address] [place] [address] 01/02/2024 2:15 PM CDT Appointment [facility] [place] [address] [place] [phone] Raya Dickens MD [address] [place], [place] [address] 01/02/2024 2:45 PM CDT Office Visit [facility] [place] [address] [place] [phone] Raya Dickens MD [address] [place], [place] [address] 01/09/2024 3:00 PM CDT Appointment [facility] [place] [address] [place] [phone] Raya Dickens MD [address] [place], [place] [address] 01/09/2024 3:30 PM CDT Office Visit [facility] [place] [address] [place] [phone] Raya Dickens MD [address] [place] [address] 01/16/2024 2:15 PM HVAC SERVICE MANAGER Appointment [facility] [address] [place] [phone] Raya Dickens MD [address] [address] [place], [place] [address] 01/16/2024 2:45 PM HVAC SERVICE MANAGER Office Visit [facility] [address] [place] [phone] Raya Dickens MD [address] [place], [place] [address] documented as of this encounter Procedures Procedure [...] CDT ? / Trim ----- Pat. Name: MARSHALL VILLEGASKRISTYN MARX ? Study Date: ??08/29/2023 1:33pm Pat. NO: ??[id number] ?Referring ??: RAYA SHAH Site: ? Photo Machine Operator: Carmen Zurita RDMS : ??2000 [...] ?0 lb 5 ?oz EFW by ?Hadlock ([id number]) EFW discordance ?10.2 ?% Head / Face [...] ?0 lb 5 ?oz EFW by ?Hadlock ([id number]) EFW discordance ?10.2 ?% Head / Face [...] be visualized: Heart / Thorax ?3-vessel view. 3-zgyeez-ioahxhx view. Fetus 2: ANATOMY ----- The following structures appear normal: Head / Neck ? Cranium. Head size. Head shape. Lateral ventricles. Choroid plexus. Midline falx. Cavum septi pellucidi. Cerebellum. Cisterna magna. ? Parenchyma. Thalami. ? Neck. Nuchal fold. Face ? Lips. Profile. Nose. Maxilla. Mandible. Orbits. Lens. Heart / Thorax ?4-chamber view. RVOT view. LVOT view. 3-vessel view. 6-qqftoi-bjqjsrr view. Situs. Aortic arch view. Bicaval view. [...] The patient is scheduled to return to [facility] in 2 weeks to assess for [...] Procedure Note Case Berrios MD - 10/08/2023 ----- Pat. Name: KRISTYN MISHRA Study Date: 08/29/2023 1:33pm Pat. NO: [id number] Referring MD: RAYA SHAH Site: Photo Machine Operator: Carmen Zurita RDMS : 2000 [...] EFW (lb,oz) 0 lb 5oz EFW by Hadlock([id number]-FL) EFW discordance 10.2% Head / Face / Neck Biometry: CM 4.6mm Nasal bone 4.1mm Fetus 2: BIOMETRY ----- BPD 33.2mm 16w 2dHadlock OFD 42.0mm 15w 0dNicolaides HC 120.9mm 16w 0dHadlock Cerebellum tr 16.2mm 16w 1dNicolaides Nuchal fold 2.2mm AC 101.3mm 16w 1d 40%Hadlock Femur 21.6mm 16w 3dHadlock Humerus 20.8mm 16w 1dJeanty Weight Calculation: EFW 151g 32%Hadlock EFW (lb,oz) 0 lb 5oz EFW by Hadlock([id number]-FL) EFW discordance 10.2% Head / Face / [...] be visualized: Heart / Thorax 3-vessel view. 6-nxudhv-dotshpgcbxf. Fetus 2: ANATOMY ----- The following structures appear normal: Head / Neck Cranium. Head size. Head shape.Lateral ventricles. Choroid plexus. Midline falx. Cavum septi pellucidi.Cerebellum. Cisterna magna. Parenchyma. Thalami. Neck. Nuchal fold. Face Lips. Profile. Nose. Maxilla.Mandible. Orbits. Lens. Heart / Thorax 4-chamber view. RVOT view. LVOT view.3-vessel view. 6-uirfew-bmfzwwe view. Situs. Aortic arch view. Bicavalview. Ductal [...] The patient is scheduled to return to [facility] in 2 weeks to assess forTTTS/TAPS [...] no evidence for TTTS/TAPS. Mica Aguilar MD [facility] US ORDERABLE S documented in this encounter Visit Diagnoses Diagnosis 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 documented in this encounter Care Teams Instrument Assembler Relationship Specialty Start Date End Date No Ref-Primary, Physician PCP - General 07/22/23 documented as of this encounter
--- OUTSIDE RECORDS SUMMARY | 2023-11-18 08:33 | XMS_ITS | Encounter Summary ---
Author Organization [facility] [address] [facility] [place] [address] Care Team Providers Care Instructor Of Sociology Name Role Phone No Ref-Primary, Physician Primary Care Provider Mica Aguilar MD Unavailable [phone] Reason for Visit * Reason Comments cerclage * Auth/Cert (Routine) Specialty Diagnoses / Procedures Referred By Contac t Referred To Contact venetian blind washer Diagnoses Maternity*FERNANDO: 02/10/24*Treutlen/Di Twins Cervical shortening affecting in second trimester Ur [address] [place] [address] Referral ID Status Reason Start Date Expiration Date Visits Re quested Visits Authorized [id number] 1 1 Encounter Details Date Type Department Care Team (Latest Contact Info) Description 09/26/2023 4:43 PM CDT - 09/28/2023 12:22 PM CDT Hospital Encounter [facility] [address] [place] [address] Heidi Swain MD [phone] [facility] [address] [place] [address] Cervical shortening affecting in second trimester (Primary Dx) Discharge Disposition: Home or Self Care Social [...] Mass Index 31.55 09/26/2023 4:59 PM CDT documented in this encounter Discharge Summaries * Heidi Swain MD - 09/28/2023 9:30 AM CDT [facility] Discharge Summary Kyara Villegas Age: [age] year old Date of : 2000 Date of Admission: 09/26/2023 Date of Discharge: 09/28/23 Admitting Physician: Heidi Swain MD Discharge Physician: Heidi Swain MD Admission Diagnosis: - Treutlen/di twin intrauterine at 20w3d - Cervical insufficiency by US and exam Discharge Diagnosis: - Treutlen/di twin intrauterine at 20w5d - Cervical insufficiency s/p cerclage placement (exam-indicated cerclage - 1 cm dilated at the timeof procedure, no prolapsing membranes) Procedures: Coto cervical cerclage, 1 suture (knot tied at 12 o'clock position) Consultations: - Anesthesia Medications prior to admission: Review of your medicines START taking Dose / Directions acetaminophen 325 MG tablet Commonly known as: TYLENOL Dose: 325-650 mg Take 1-2 tablets (325-650 mg) by mouth every 6 hours as needed for mild pain Quantity: 30 tablet Refills: 0 CONTINUE these medicines which have NOT CHANGED Dose / Directions aspirin 81 MG EC tablet Dose: 81 mg Take 81 mg by mouth daily Refills: 0 multivitamin plus iron 27-1 MG Tabs Dose: 1 tablet Take 1 tablet by mouth daily Refills: 0 Where to get your medicines These medications were sent to [place], [place] - [address] [facility] [address], [facility] [address] acetaminophen 325 MG tablet Brief History of Presentation: Kyara Villegas is a 22 year old at 20w3d who presents for admission prior to planned exam indicated cerclage placement tomorrow (09/26). This is a mono/di twin . Pt was seen by [facility] today and found to have a shortened cervix to 8.2 mm on transvaginal ultrasound.A digital exam was performed and patient was found to be 1 cm dilated. Exam indicated cerclage was recommended and pt transferred to [facility] for further evaluation prior to planned procedure tomorrow morning. On arrival she states she has been feeling well, in her normal state of health. She denies any medical history including no h/o hypertension, diabetes or asthma. She has had no prior abdominal surgeries. She denies recent change in vaginal discharge or concern for infection. No recent vaginal itching or burning. She denies recent urinary symptoms. This is her first . Infectious work up negative. Her has been complicated by: - mono/di twin Hospital Course: Admitted to antepartum. Coto's cerclage placed without complication under spinal anesthesia. She received indomethacin and ancef after her procedure. By HD#3 she was meeting goals for discharge. Discharge Instructions: Call or present to labor and delivery if you experience: -Regular painful contractions concerning for labor -Leakage of fluid concerning for ruptured membranes -Decreased movement -Bright red vaginal bleeding -Headache, vision changes, upper abdominal pain, significant increase in swelling, generalized unwell feeling Follow up: Follow up in [facility] clinic scheduled appointment this coming week for TTTS/TAPS mono-di twin surveillance Routine OB care with primary OB provider team Pelvic rest for remainder of the given cervical cerclage Discharge Medications: Current Discharge Medication List CONTINUE these medications which have NOT CHANGED Details aspirin 81 MG EC tablet Take 81 mg by mouth daily Vit-Fe Fumarate-FA ( MULTIVITAMIN PLUS IRON) 27-1 MG TABS Take 1 tablet by mouth daily Reyna Stern MD Outbound Sales Professional Resident, PGY-3 09/28/2023 9:35 AM Physician Attestation I saw and evaluated this patient prior to discharge. I discussed the patient with the resident/fellow and agree with plan of care as documented in the note. I personally reviewed vital signs, medications, labs, and imaging. I personally spent 20 minutes on discharge activities. Heidi Swain MD Date of Service (when I saw the patient): 09/28/23 documented in this encounter Discharge Instructions * Discharge Instructions* Beverly Yadav, RN - 09/28/2023 11:17 AM CDT Aprenda cu??ndo llamar a tian m??dico raúl el embarazo (despu??s de 20 semanas) Learning About When to Call Your Doctor During (After 20 Weeks) Instrucciones de cuidado Es normal que tenga inquietudes acerca de lo que podr??a ser un problema raúl el embarazo. Aunque la mayor??a de las mujeres embarazadas no tienen yohana??n problema grave, es importante saber cu??ndo llamar a tian m??dico si tiene determinados s??ntomas o se??ales de trabajo de parto. Estas son algunas sugerencias generales. Tian m??dico puede darle m??s informaci??n sobre cu??ndo llamar. Cu??ndo llamar a tian m??dico (despu??s de 20 semanas) Llame al 911 en cualquier momento que considere que necesita atenci??n de urgencia. Por ejemplo, llame si: Tiene sangrado vaginal intenso. Tiene dolor repentino e intenso en el abdomen. Se desmay?? (perdi?? el conocimiento). Tiene gilles convulsi??n. Ve o siente el cord??n umbilical. Genesis que est?? a punto de livan a yessica a tian beb?? y no puede llegar en forma esteban al hospital. Llame a tian m??dico ahora mismo o busque atenci??n m??dica inmediata si: Tiene sangrado vaginal. Tiene dolor en el abdomen. Tiene fiebre. Tiene s??ntomas de preeclampsia, hood: Hinchaz??n repentina de la tony, las fermin o los pies. Nuevos problemas de visi??n (hood oscurecimiento, donya borroso o donya puntos). Dolor de ernie intenso. Tiene gilles p??rdida repentina de l??quido por la vagina. (Piensa que rompi?? la kartik). Piensa que puede myron comenzado el trabajo de parto. [place] significa que bravo tenido al menos 6 contracciones en gilles hora. Nota que tian beb?? bravo dejado de moverse o lo hace mucho menos de lo habitual. Tiene s??ntomas de gilles infecci??n urinaria. Estos pueden incluir: Dolor o ardor al orinar. Necesidad de orinar con frecuencia sin poder eliminar alexander orina. Dolor en el flanco, que se encuentra edin debajo de la caja tor??cica y arriba de la cintura en unlado de la espalda. Mekhi en la orina. Preste especial atenci??n a los cambios en tian kel y aseg??rese de comunicarse con tian m??dico si: Tiene flujo vaginal con un olor desagradable. Tiene cambios en la piel, tales hood: Salpullido. Comez??n. Color amarillento en la piel. Tiene otras inquietudes acerca de tian embarazo. Si tiene signos de trabajo de parto al llegar a las 37 semanas o m??s Si tiene se??ales de trabajo de parto a las 37 semanas o m??s, es posible que tian m??dico le diga que llame cuando tian trabajo de parto se vuelva m??s activo. Los s??ntomas del trabajo de parto activo incluyen: Contracciones que son regulares. Contracciones a intervalos de menos de 5 minutos. Contracciones raúl las cuales es dif??cil hablar. La atenci??n de seguimiento es gilles parte clave de tian tratamiento y seguridad. Aseg??rese de hacer yacudir a todas las citas, y llame a tian m??dico si est?? teniendo problemas. Tambi??n es gilles buena idea saber los resultados de jessica ex??menes y mantener gilles lista de los medicamentos que aixa. ??D??nde puede encontrar m??s informaci??n en ingl??s? Vaya a [email or web address].[email or web address].[email or web address] Escriba N531 en la b??squeda para aprender m??s acerca de Aprenda cu??ndo llamar a tian m??dico raúl el embarazo (despu??s de 20 semanas). Revisado: 2022 Versi??n del contenido: 14.0 ?? [employer]. Las instrucciones de cuidado fueron adaptadas bajo licencia por tian profesional de atenci??n m??dica. Si usted tiene preguntas sobre gilles afecci??n m??dica o sobre estas instrucciones, siempre preguntea tian profesional de kel. [employer] niega toda garant??a o responsabilidad por tian uso de esta informaci??n. documented in this encounter Medications at Time of Discharge [...] mouth daily documented as of this encounter Progress Notes * Reyna Stern MD - 09/28/2023 11:54 AM CDT Brief Note Brief BSUS: Fetus A: FHR 140s Fetus B: FHR 140s Reyna Stern MD Outbound Sales Professional Resident, PGY-3 09/28/2023 11:54 AM * Heidi Swain MD - 09/28/2023 9:13 AM CDT Antepartum Progress Note HD#3 S: Patient resting on arrival. No acute issues overnight. Denies any pain currently, feeling well. NO contractions, vaginal discharge, vaginal leakage of fluid. Vitals: 09/27/23 1432 09/27/23 1445 09/27/23 2205 09/28/23 0848 BP: 103/51 104/55 98/56 BP Location: Right arm Right arm Right arm Patient Position: Semi-Diego's Semi-Diego's Semi-Diego's Cuff Size: Adult Regular Adult Regular Adult Regular Pulse: 96 Resp: 16 16 16 Temp: 98 ??F (36.7 ??C) 98.1 ??F (36.7 ??C) TempSrc: Oral Oral SpO2: 99% 98% Weight: Height: General Appearance: NAD Abdomen: Gravid, non-tender BSUS x2 with normal heart rates. A/P: 22 year old at 20w5d with mono-di twin gestation and newly discovered cervical shorteningseen on comprehensive ultrasound done 09/25 and dilated cervix on pelvic exam concerning for cervical insufficiency; now POD#1 from Coto cerclage placement. Doing well postoperatively. Plan for discharge today. - infectious work-up revealed negative wet prep, WBC 11.7 (mild elevation but within range of induced leukocytosis, no concerning for overt infection ie chorioamnionitis); negative urine culture and GC/CT - Will prescribe Tylenol for discharge - Follow up in clinic on 09/30/2023, will have ultrasound at that visit The patient was seen with Dr. Heidi Swain who is in agreement with the plan. Reyna Stern MD Outbound Sales Professional Resident, PGY-3 09/28/2023 9:14 AM Physician Attestation I saw and evaluated this patient prior to discharge. I discussed the patient with the resident/fellow and agree with plan of care as documented in the note. I personally reviewed vital signs, labs, imaging, and discussed the following plan with the patient, with the assistance of a horse rider via iPad. . I personally spent 15 minutes on discharge activities. Heidi Swain MD Date of Service (when I saw the patient): 09/28/23 * Heidi Swain MD - 09/27/2023 8:46 AM CDT Antepartum Progress Note HD#2 No acute issues overnight. Patient reports feeling well. Denies contractions, vaginal discharge, vaginal leakage of fluid. Understandably nervous about cerclage procedure. Vitals: 09/26/23 1659 09/26/23 2045 09/27/23 0000 BP: 101/64 112/53 116/65 BP Location: Left arm Right arm Right arm Patient Position: Sitting Semi-Diego's Sitting Cuff Size: Adult Regular Adult Regular Adult Regular Pulse: 93 Resp: 16 15 16 Temp: 98.7 ??F (37.1 ??C) 98.9 ??F (37.2 ??C) 98.7 ??F (37.1 ??C) TempSrc: Oral Oral Oral Weight: 75.8 kg (167 lb) Height: 1.549 m (5' 1) General Appearance: NAD Abdomen: Gravid, NT. Pelvic: deferred to operating room exam Heart Rate: Fetus 1: 145 bpm, Fetus 2: 135 bpm via bedside ultrasound Mcdougal: No contractions overnight A/P: 22 year old at 20w4d with mono-di twin gestation and newly discovered cervical shorteningseen on comprehensive ultrasound done 09/25 and dilated cervix on pelvic exam concerning for cervical insufficiency; admitted for exam indicated cervical cerclage. - infectious work-up up until this point has revealed negative wet prep, WBC 11.7 (mild elevation but within range of induced leukocytosis, no concerning for overt infection ie chorioamnionitis); urine culture, GC/CT testing pending - reviewed with patient details of cerclage procedure - reviewed risks of cerclage procedure including but not limited to bleeding (including placental),infection (including chorioamnionitis), damage to surrounding structures including but not limited to bowel, bladder, cervix, risk of PPROM, failure of cerclage to prevent pre-viable, carole-viable or , possible increased need for delivery - reviewed postoperative precautions and restrictions - Doptone x 2 after the procedure - Anesthesia alerted for spinal anesthesia administration. Will plans for antibiotics before procedure (IV ancef) as well as indocin 50 mg suppository; as well as continuing ancef IV for 2 additionaldoses postoperative at q8 hour interval, and indocin for 2 additional doses PO 50 mg at q8 hour intervals - Surgical consent signed. Has been NPO since midnight. The patient was discussed with Dr. Heidi Swain who is in agreement with the treatment plan. Socorro Danielson MD Maternal Medicine Fellow PGY-5 Physician Attestation I saw this patient with the resident and agree with the resident/fellow's findings and plan of careas documented in the note. Crow findings: This patient meets criteria for an examination indicated cervical cerclage by vaginalapproach. 15 MINUTES SPENT BY ME on the date of service doing chart review, history, exam, documentation & further activities per the note. I have personally reviewed the following data over the past 24 hrs: 11.7 (H) \ 10.3 (L) / 261 N/A N/A N/A / N/A N/A N/A N/A \ Heidi Swain MD Date of Service (when I saw the patient): 09/27/23 documented in this encounter H&P Notes * Heidi Swain MD - 09/26/2023 5:05 PM CDT Images from the original note were not included. Antepartum History and Physical September 26, 2023 Kyara Villegas [id number] HPI Kyara Villegas is a 22 year old at 20w3d who presents for admission prior to planned exam indicated cerclage placement tomorrow (09/26). This is a mono/di twin . Pt was seen by MFM today and found to have a shortened cervix to 8.2 mm on transvaginal ultrasound.A digital exam was performed and patient was found to be 1 cm dilated. Exam indicated cerclage was recommended and pt transferred to [facility] for further evaluation prior to planned procedure tomorrow morning. On arrival she states she has been feeling well, in her normal state of health. She denies any medical history including no h/o hypertension, diabetes or asthma. She has had no prior abdominal surgeries. She denies recent change in vaginal discharge or concern for infection. No recent vaginal itching or burning. She denies recent urinary symptoms. This is her first . Her has been complicated by: - mono/di twin OB History Para Term AB Living 1 0 0 0 0 0 SAB IAB Ectopic Multiple Live Births 0 0 0 0 0 # Outcome Date GA Lbr Main/2nd Weight Sex Type Anes PTL Lv 1 Current Past Medical History History reviewed. No pertinent past medical history. Past Surgical History History reviewed. No pertinent surgical history. Medications Current Facility-Administered Medications Medication Dose Route Frequency Provider Last Rate Last Admin ceFAZolin Sodium (ANCEF) injection 2 g 2 g Intravenous Pre-Op/Pre-procedure x 1 dose Socorro Danielson MD ceFAZolin Sodium (ANCEF) injection 2 g 2 g Intravenous See Admin Instructions Socorro Danielson MD [START ON 09/27/2023] indomethacin (INDOCIN) 50 MG Suppository 50 mg 50 mg Rectal Q12H PRN Socorro Danielson MD lactated ringers infusion Intravenous Continuous Socorro Danielson MD [START ON 09/27/2023] lactated ringers infusion Intravenous Continuous Socorro Danielson MD lidocaine (LMX4) cream Topical Q1H PRN Socorro Danielson MD lidocaine (LMX4) cream Topical Q1H PRSocorro Farrell MD lidocaine 1 % 0.1-1 mL 0.1-1 mL Other Q1H PRSocorro Farrell MD lidocaine 1 % 0.1-1 mL 0.1-1 mL Other Q1H PRSocorro Farrell MD metoclopramide (REGLAN) injection 10 mg 10 mg Intravenous Q6H PRN Socorro Danielson MD Or metoclopramide (REGLAN) tablet 10 mg 10 mg Oral Q6H PRN Socorro Danielson MD No Tdap Needed - Assessment: Patient does not need Tdap vaccine Does not apply Continuous PRSocorro Farrell MD ondansetron (ZOFRAN ODT) ODT tab 4 mg 4 mg Oral Q6H PRSocorro Farrell MD Or ondansetron (ZOFRAN) injection 4 mg 4 mg Intravenous Q6H PRSocorro Farrell MD prochlorperazine (COMPAZINE) injection 10 mg 10 mg Intravenous Q6H PRSocorro Farrell MD Or prochlorperazine (COMPAZINE) tablet 10 mg 10 mg Oral Q6H PRSocorro Farrell MD Or prochlorperazine (COMPAZINE) suppository 25 mg 25 mg Rectal Q12H PRN Socorro Danielson MD sodium chloride (PF) 0.9% PF flush 3 mL 3 mL Intracatheter Q8H Socorro Danielson MD sodium chloride (PF) 0.9% PF flush 3 mL 3 mL Intracatheter q1 min prn Socorro Danielson MD sodium chloride (PF) 0.9% PF flush 3 mL 3 mL Intracatheter Q8H Socorro Danielson MD sodium chloride (PF) 0.9% PF flush 3 mL 3 mL Intracatheter q1 min prn Socorro Danielson MD sodium citrate-citric acid (BICITRA) solution 30 mL 30 mL Oral Once Socorro Danielson MD Allergies No Known Allergies Family History History reviewed. No pertinent family history. Social History Social History Socioeconomic History Marital status: Spouse name: None Number of children: None Years of education: None Highest education level: None Tobacco Use Smoking status: Never Passive exposure: Never Smokeless tobacco: Never Substance and Sexual Activity Alcohol use: Not Currently Drug use: Never Sexual activity: Yes Partners: Male ROS 10-point ROS negative except as indicated in HPI. Physical Exam Vitals: 09/26/23 1659 BP: 101/64 BP Location: Left arm Patient Position: Sitting Cuff Size: Adult Regular Pulse: 93 Resp: 16 Temp: 98.7 ??F (37.1 ??C) TempSrc: Oral Weight: 75.8 kg (167 lb) Height: 1.549 m (5' 1) General: alert, oriented female, resting in bed in NAD CV: regular rate, warm and well perfused Lungs: breathing comfortably on room air Abdomen: soft, gravid, non-tender Extremities: bilateral lower extremities non-tender with no edema : normal appearing external female genitalia, no SSE performed, physiologic discharge without blood on collected swabs Mcdougal: quiet x20 min, plan to continue x2h : Labs Lab Results Component Value Date HGB 10.3 (L) 09/26/2023 GBS Status: No results found for: GBS No results found for: PAP Results for orders placed or performed during the hospital encounter of 09/26/23 (from the past 24 hour(s)) ABO/Rh type and screen Narrative The following orders were created for panel order ABO/Rh type and screen. Procedure Abnormality Status --------- ------ Adult Type and Screen[[id number]] In process Please view results for these tests on the individual orders. CBC with platelets Result Value Ref Range WBC Count 11.7 (H) 4.0 - 11.0 10e3/uL RBC Count 3.40 (L) 3.80 - 5.20 10e6/uL Hemoglobin 10.3 (L) 11.7 - 15.7 g/dL Hematocrit 30.5 (L) 35.0 - 47.0 % MCV 90 78 - 100 fL MCH 30.3 26.5 - 33.0 pg MCHC 33.8 31.5 - 36.5 g/dL RDW 13.4 10.0 - 15.0 % Platelet Count 261 150 - 450 10e3/uL Extra Tube Narrative The following orders were created for panel order Extra Tube. Procedure Abnormality Status --------- ------ Extra Serum Separator Tu...[[id number]] In process Extra Green Top ([place]...[[id number]] In process Please view results for these tests on the individual orders. Imaging [facility] US 09/26/2023 Monochorionic diamniotic twin gestation at 20w 3d [...] transfusion syndrome or twin anemia polycythemia syndrome. Assessment/Plan 22 year old at 20w3d here for newly identified cervical shortening by TVUS in clinic today. Clinically Significant Risk Factors Present on Admission # Drug Induced Platelet Defect: home medication list includes an antiplatelet medication # Anemia: based on hgb <11 Cervical shortening Incidentally noted on scheduled US today. Cervix 8.2 mm by TVUS. SVE completed and pt noted to be 1cm dilated, 50% effaced with high station. Given premature cervical shortening and dilation, recommendation was made for exam indicated cervical cerclage. Will complete work up with ruling out infectious etiologies today (WP, GC/CT and UA collected on admission) and watch on tocometer for 2 hours to ensure she is not having contractions. - toco x2h tonight, if no contractions, can discontinue - CBC, T&S on admission - f/up GC/CT, WP - f/up urinalysis - NPO@ [place] with mIVF (ordered) - to OR 0900 (pre op orders placed) - will need surgical consent prior to procedure Inpatient Management - up ad daily - Regular diet until midnight - SCD # FWB - daily dop tones - BMZ and magnesium not indicated given previable GA Routine care - Rh ; Antibody negative - GC/CT negative first trimester Medically Ready for Discharge: Anticipated Tomorrow Patient seen and care plan discussed under supervision of Dr. Heidi Swain. Raven Sauer MD CORONER FORENSIC TECHNICIAN PGY-3 09/26/2023 6:38 PM Physician Attestation I saw this patient with the resident and agree with the resident/fellow's findings and plan of careas documented in the note. Crow findings: Patient meets criteria for an exam indicated cerclage. 10 MINUTES SPENT BY ME on the date of service doing chart review, history, exam, documentation & further activities per the note. I have personally reviewed the following data over the past 24 hrs: 11.7 (H) \ 10.3 (L) / 261 N/A N/A N/A / N/A N/A N/A N/A \ Heidi Swain MD Date of Service (when I saw the patient): 09/27/23 documented in this encounter Nursing Notes * MohNgozi hernandez RN - 09/27/2023 12:00 PM CDT Data: Pt to OB PACU at 1100 via cart. PIV infusing without complications, pt denies any pain, denies any nausea and vomiting Interventions: IV to pump, monitors and alarms on, SCD on. Response: stable. Plan: Patient instructed to notify RN for pain or nausea, routine post op cares. Patient met recovery and was transferred back to her room. documented in this encounter Miscellaneous Notes * Plan of Care - Beverly Yadav RN - 09/28/2023 11:43 AM CDT Discharge instructions reviewed with patient and with ipad fiber optics technician and patient states no questions. She is aware of the follow up plan. Discharge to home. * Plan of Care - Fadi Crooks RN - 09/28/2023 7:13 AM CDT VSS. Patient slept throughout the night. See flowsheets for Uterine and FHR patterns and assessments. Patient denies pain, headaches, vision changes, URQ epigastric pain, bleeding, and leaking of fluids. Support person at bedside. Call light in reach. Patient educated on informing staff of any changes. Questions and concerns answered and addressed. Will continue to monitor and notify provider if change of status. Report given to Beverly Rm RN * Plan of Care - Ngozi Granados RN - 09/27/2023 12:36 PM CDT Goal Outcome Evaluation: Patient had scheduled vaginal cerclage, tolerated procedure. Vital signs are stable. Reported some back pain that relieved with heat back Tylenol, Mcdougal was quite. Patient tolerated food. Plan is to give Indocin and IV antibiotics and observe overnight. Continue with plan of care. * Op Note - Hiedi Swain MD - 09/27/2023 10:13 AM CDT Operative Note: Cervical Cerclage Pre-Op Diagnosis: 1) Single intrauterine at 20w4d by 10w3d ultrasound 2) Monochorionic diamniotic twin gestation 3) Cervical insufficiency 4) Cervical shortening Post-Op Diagnosis: 1) Same Procedure: 1) Coto cervical cerclage, 1 suture (knot tied at 12 o'clock position) Surgeons: Attending: Heidi Swain MD Fellow: Socorro Danielson [facility] Fellow PGY5 Resident: Anthony Jones MS3 Anesthesia: Spinal Estimated Blood Loss: 5 cc Findings: 1) Cervix dilated to 1 cm prior to the procedure, closed following the procedure 2) heart tones confirmed by doptone following the procedure Specimens: 1) None Complications: 1) None apparent History: Kyara Villegas is a 22 year oldy.o. at 20w4d by by 10w3d ultrasound, who presents for incidental shortened cervix noted yesterday (09/25) at our [facility] clinic during her first comprehensive anatomy ultrasound measuring 8 mm. Subsequent pelvic examination revealed a visually dilated cervix at 1 cm and digital examination revealing cervix to be 1/50 and soft in consistency. She was recommended to go th [facility] for further evaluation. After counseling regarding these findings, the patient has decided to proceed with cervical cerclage. Details of Procedure: After administration of spinal anesthesia the patient was placed in the dorsal lithotomy position and prepped and draped in the usual fashion. A weighted speculum was placed into the vagina and rightangle retractors were used to visualize the cervix. The vagina and cervix were copiously cleansed with betadine solution. The anterior lip of the cervix was grasped with a ring forcep. A circumferential suture of #2 Ethilon was placed in the usual fashion at the cervicovaginal reflection with knot securely tied at 12 o'clock position. Digital exam confirmed that the cervix was closed. The bladder was drained of clear urine and a rectal exam confirmed that no sutures were present in the rectum. The cervix and vaginal vault were inspected and noted to be free of injury and hemostatic. A 50 mg indocin capsule was inserted rectally, as well. The instruments were removed from the vagina. She tolerated her spinal anesthesia well without incident. She was subsequently transferred to the recovery room in satisfactory condition. Sponge and needle counts were correct at the close of the case x 2. Socorro Danielson MD Maternal Medicine Fellow PGY5 09/27/2023 10:13 AM Physician Attestation I was present and scrubbed and participated in the entire procedure. Crow findings: 1 cm dilation - exam indicated cerclage. Heidi Swain MD Date of Service (when I saw the patient): 09/27/23 * Plan of Care - Fadi Crooks RN - 09/27/2023 6:13 AM CDT VSS. Patient slept throughout the night. See flowsheets for Uterine and FHR patterns and assessments. Patient denies pain, headaches, vision changes, URQ epigastric pain, bleeding, and leaking of fluids. IV fluids infusing. Support person at bedside. Call light in reach. Patient educated on informing staff of any changes. Will continue to monitor and notify provider if change of status. Report given to Sadia. BOGGS. * Plan of Care - Kimberly Pace RN - 09/26/2023 6:17 PM CDT Cerclage Admit Note Kyara Villegas Primary Care Provider:Heidi Diane Primary Clinic:[facility] Gestational Age: 20w3d Kyara Tiago Villegas presents for cerclage placement due to short cervix and cervical dialation. Patient denies contractions, bleeding or LOF. History reviewed. No pertinent past medical history. History reviewed. No pertinent surgical history. Raven Sauer notified of patient's arrival and condition. Plan: Collect UA/UC, wet prep and gclam, lab draw. Monitor for contractions. NPO after midnight. Surgery scheduled in the morning. documented in this encounter Plan of Treatment Upcoming Encounters Date Type Department Care Team (Late st Contact Info) Description 11/21/2023 10:15 AM CDT Appointment [facility] Maternal Medicine [place] [address] [facility] [address] [place] [phone] Tomasa Dickens MD [address] [place], [place] [address] [phone] Nitin Morris MD [address] [place], [place] [phone] 11/21/2023 10:45 AM CDT Office Visit [facility] Medicine [place] [address] [facility] [address] [place] [address] [phone] Tomasa Dickens MD [address] [place], [place] [address] [phone] Nitin Morris MD [address] [place], [place] [phone] 12/05/2023 2:15 PM CDT Appointment [facility] Medicine [place] [address] [facility] [address] [place] [phone] Tomasa Dickens MD [address] [place], [place] [id number] [phone] 12/05/2023 2:45 PM CDT Office Visit [facility] Maternal Medicine [place] [address] [facility] [address] [place] [phone] Tomasa Dickens MD [address] [place], [place] [phone] 12/19/2023 11:00 AM CDT Appointment [facility] Maternal Medicine [place] [address] [place] [phone] Tomasa Dicekns MD [address] [place] [address] 12/19/2023 11:30 AM CDT Office Visit [facility] Maternal Medicine [place] [address] [facility] [address] [place] [phone] Tomasa Dickens MD [address] [place] [address] 12/26/2023 3:00 PM CDT Appointment [facility] Maternal Medicine [place] [address] [facility] [address] [place] [phone] Tomasa Dickens MD [address] [place] [address] 12/26/2023 3:30 PM CDT Office Visit [facility] Maternal Medicine [place] [address] [facility] [address] [place] [phone] Tomasa Dickens MD [address] [place] [address] 01/02/2024 2:15 PM CDT Appointment [facility] Maternal Medicine [place] [address] [facility] [address] [place] [phone] Tomasa Dickens MD [address] [place] [address] 01/02/2024 2:45 PM CDT Office Visit [facility] Medicine [place] [address] [facility] [address] [place] [phone] Tomasa Dickens MD [address] [place] [address] 01/09/2024 3:00 PM CDT Appointment [facility] [place] [address] [facility] [address] [place] [phone] Tomasa Dickens MD [address] [place] [address] 01/09/2024 3:30 PM CDT Office Visit [facility] Medicine [place] [address] [facility] [address] [place] [phone] Tomasa Dickens MD [address] [place] [address] 01/16/2024 2:15 PM RN CHEMICAL DEPENDENCY Appointment [facility] [place] [address] [facility] [address] [place] [phone] Tomasa Dickens MD [address] [place] [address] 01/16/2024 2:45 PM RN CHEMICAL DEPENDENCY Office Visit [facility] Medicine [place] [address] [facility] [address] [place] [phone] Tomasa Dickens MD [address] [place] [address] documented as of this encounter Procedures Procedure Name Priority Date/Time Associated Diagnosis Comments CERCLAGE, CERVIX, VAGINAL APPROACH 09/27/2023 9:02 AM CDT ROUTINE UA WITH MICROSCOPIC Routine 09/26/2023 5:51 PM CDT URINE CULTURE Routine 09/26/2023 5:51 PM CDT WET PREPARATION Routine 09/26/2023 5:50 PM CDT NEISSERIA GONORRHOEAE PCR Routine 09/26/2023 5:50 PM CDT CHLAMYDIA TRACHOMATIS PCR Routine 09/26/2023 5:50 PM CDT EXTRA SERUM SEPARATOR TUBE (SST) Routine 09/26/2023 5:15 PM CDT EXTRA TUBE Routine 09/26/2023 5:15 PM CDT EXTRA GREEN TOP (LITHIUM HEPARIN) TUBE Routine 09/26/2023 5:15 PM CDT TYPE AND SCREEN, ADULT STAT 09/26/2023 5:15 PM CDT ABO/RH TYPE AND SCREEN STAT 09/26/2023 5:15 PM CDT CBC WITH PLATELETS STAT 09/26/2023 5: 15 PM CDT documented in this encounter Results * Urine Culture (09/26/2023 5:51 PM CDT) Culture No Growth XIOMARA 09/28/2023 6:20 AM CDT [facility] Urine MID-STREAM URINE SPECIMEN / Unknown Non-blood Collection / Unknown 09/26/2023 5:51 PM CDT 09/26/2023 6:04 PM CDT Socorro Danielson MD LAB - MICRO GENERAL ORDERABLES [facility] Inf. Diseases Diag. Lab [address] [facility], [address] [place] [phone], [facility] * (ABNORMAL) UA with Microscopic (09/26/2023 5:51 [...] 09/26/2023 6:37 PM CDT UR LABORATORY Specific [place] Urine 1.018 1.003 - 1.035 09/26/2023 6:37 [...] MD LAB - URINE ORDERABLES UR LABORATORY [facility] Acute Care Lab [address] [facility] [place] [phone] * Chlamydia trachomatis PCR (09/26/2023 5:50 PM CDT) Chlamydia trachomatis Negative Negative 09/27/2023 11:37 AM CDT [facility] Comment:A negative result by stretch press operator mediated amplification does not preclude the presence of C. trachomatis infection because results are dependent on proper and adequate collection, absence of inhibitors and sufficient rRNA to be detected. Swab VAGINAL STRUCTURE / Unknown Non-blood Collection / Unknown 09/26/2023 5:50 PM CDT 09/26/2023 6:03 PM CDT Socorro Danielson MD LAB - MICRO GENERAL ORDERABLES Performing Organization Address City/[facility] Co de Phone Number [facility] Inf. Diseases Diag. Lab [address] [facility], [address] [phone] * Neisseria gonorrhoea PCR (09/26/2023 5:50 PM CDT) Neisseria gonorrhoeae Negative Negative 09/27/2023 11:37 AM CDT [facility] Comment:Negative for N. gono rrhoeae rRNA by stretch press operator mediated amplification. A negative result by stretch press operator mediated amplification does not preclude the presence of C. trachomatis infection because results are dependent on proper and adequate collection, absence of inhibitors and sufficient rRNA to be detected. Swab VAGINAL STRUCTURE / Unknown Non-blood Collection / Unknown 09/26/2023 5:50 PM CDT 09/26/2023 6:03 PM CDT Socorro Danielson MD LAB - MICRO GENERAL ORDERABLES [facility] Inf. Diseases Diag. Lab [address] [facility], [address] [phone] * (ABNORMAL) Wet prep (09/26/2023 5:50 [...] LAB - MICRO GENERAL ORDERABLES UR LABORATORY [facility] Acute Care Lab [address] [place] [address], [address] * Extra Green Top ([place] Heparin) Tube (09/26/2023 5:15 PM CDT) Hold Specimen [facility] 09/26/2023 6:32 PM CDT UR LABORATORY Blood STRUCTURE OF RIGHT UPPER LIMB / Unknown Venipuncture / Unknown 09/26/2023 5:15 PM CDT 09/26/2023 5:25 PM CDT Heidi Swain MD LAB - BLOOD ORDERA BLES UR LABORATORY [facility] Acute Care Lab [address] [place] [address], [address] * Extra Serum Separator Tube (SST) (09/26/2023 5:15 PM CDT) Hold Specimen [facility] 09/26/2023 6:32 PM CDT UR LABORATORY Blood STRUCTURE OF RIGHT UPPER LIMB / Unknown Venipuncture / Unknown 09/26/2023 5:15 PM CDT 09/26/2023 5:24 PM CDT Heidi Swain MD LAB - BLOOD ORDERA BLES UR LABORATORY [facility] Acute Care Lab [address] [facility], [address] * Adult Type and Screen (09/26/2023 5:15 PM CDT) Pathologist [facility] [place] ABO/RH(D) A POS 09/26/2023 4:59 PM CDT UR BLOOD BANK Antibody Screen Negative Negative 09/26/2023 4:59 PM CDT UR BLOOD BANK SPECIMEN EXPIRATION DATE [id number] 09/26/2023 4:59 PM CDT UR BLOOD BANK Blood STRUCTURE OF RIGHT UPPER LIMB / Unknown Venipuncture / Unknown 09/26/2023 5:15 PM CDT 09/26/2023 5:20 PM CDT Socorro Danielson MD LAB - BLOOD BANK TEST ORDER Performing Organization Address City/[facility]/ZIP Co de Phone Number UR BLOOD BANK [facility] Blood Components Lab [facility], [address] * (ABNORMAL) CBC with platelets (09/26/2023 5:15 PM CDT) [facility] WBC Count 11.7(H) 4.0 - 11.0 10e3/uL [...] 5:15 PM CDT 09/26/2023 5:20 PM CDT Jovanyjaneschuyler Danielson MD LAB - BLOOD ORDERABLES UR LABORATORY [facility] Acute Care Lab [address] [facility] [place] [phone], [facility] documented in this encounter Visit Diagnoses Diagnosis Cervical shortening affecting in second trimester- Primary Cervical shortening affecting in second trimester documented in this encounter Administered Medications Inactive Administered Medications - up to 3 most recent administrations Medication Order MAR Action Action Date Dose Rate Site acetaminophen (TYLENOL) tablet 975 mg 975 mg, Oral, ONCE, On 09/27/23 at 1330, For 1 dose, Maximum acetaminophen dose from all sources = 75 mg/kg/day not to exceed 4 grams/day. $Given 09/27/2023 1:48 PM CDT 975 mg aspirin EC tablet 81 mg 81 mg, Oral, DAILY, First dose on 09/27/23 at 1230, DO NOT CRUSH. $Given 09/28/2023 8:54 AM CDT 81 mg $Given 09/27/2023 1:48 PM CDT 81 mg ceFAZolin (ANCEF) 1 g vial to attach to NS 100 ml bag for ADULT or 50 ml bag for PEDS Routine, 1 g, Intravenous, EVERY 8 HOURS, First dose on 09/27/23 at 1730, For 2 doses, Indications: Possible post-op infection $New Bag 09/28/2023 1:30 AM CDT 1 g $New Bag 09/27/2023 5:28 PM CDT 1 g indomethacin (INDOCIN) 50 MG Suppository 50 mg 50 mg, Rectal, EVERY 12 HOURS PRN, inflammatory pain, Starting on 09/27/23 at 0900, To be administered postprocedure, Antepartum $Given 09/27/2023 9:46 AM CDT 50 mg indomethacin (INDOCIN) capsule 50 mg 50 mg, Oral, EVERY 8 HOURS, First dose on 09/27/23 at 1800, For 2 doses $Given 09/28/2023 2:02 AM CDT 50 mg $Given 09/27/2023 5:31 PM CDT 50 mg lactated ringers BOLUS 250 mL Intravenous, 250 mL, ONCE PRN, other, hypotension, Starting on 09/27/23 at 0632, For 1 dose, If no improvement in Blood Pressure with repositioning(if ordered), administer IV bolus as ordered. Treat for Systolic Blood Pressure less than 100 mmHg or drop in Blood Pressure by 20%. If unresponsive to Fluid Bolus, administer ePHEDrine OR phenylephrine (DERRICK-SYNEPHRINE) [if ordered] or page Anesthesia., Intrapartum lactated ringers infusion at 125 mL/hr, Intravenous, CONTINUOUS, Antepartum, Starting on 09/27/23 at 0000, Until 09/27/23 at 1216 Restarted 09/27/2023 8:26 AM CDT 0 mL/hr $New Bag 09/27/2023 7:54 AM CDT 125 mL/hr $New Bag 09/27/2023 12:11 AM CDT 125 mL/hr lactated ringers infusion at 100 mL/hr, Intravenous, CONTINUOUS, Pre-procedure, Starting on 09/27/23 at 0830, Until 09/28/23 at 1423 $New Bag 09/27/2023 9:12 AM CDT lidocaine (LMX4) cream Topical, EVERY 1 HOUR PRN, pain, with VAD insertion, Starting on 09/27/23 at 0816, Apply at least 30 minutes prior to VAD insertion in divided doses as needed for size of site for insertion. MAX Dose: 2.5 g (?? of 5 g tube) Do NOT give if patient has a history of allergy to any local anesthetic or any jeniffer product. Do NOT use both lidocaine intradermal/subcutaneous injection and the lidocaine cream on the same site., Pre-procedure lidocaine 1 % 0.1-1 mL 0.1-1 mL, Other, EVERY 1 HOUR PRN, mild pain with VAD insertion, Starting on 09/27/23 at 0816, MAX dose 1 mL subcutaneous OR intradermal along the side of the vein in divided doses as needed for VAD insertion. Do NOT give if patient has a history of allergy to any local anesthetic or any jeniffer product. Do NOT use both lidocaine intradermal/subcutaneous injection and the lidocaine cream on the same site., Pre-procedure nalbuphine (NUBAIN) injection 2.5-5 mg 2.5-5 mg, Intravenous, EVERY 6 HOURS PRN, other, for pruritus, Starting on 09/27/23 at 0632, Give 2.5 mg initially. If pruritus persists after 30 minutes, may give additional 2.5 mg. If effective, then repeat effective dose Q6H PRN pruritus., Intra + Post phenylephrine (DERRICK-SYNEPHRINE) injection 100 mcg 100 mcg, Intravenous, EVERY 5 MIN PRN, if Systolic Blood Pressure less than 100 mmHg and Heart Rate greater than 55 bpm, Starting on 09/27/23 at 0632, For 4 doses, Check Blood Pressure EVERY 2 minutes and repeat PRN for 4 Doses. IF patient remains hypotensive (Systolic Blood Pressure less than 100 mmHg) AFTER the 4 dose, notify Anesthesia. Notify Anesthesia PRIOR to administering additional doses., Intrapartum multivitamin w/iron per tablet 1 tablet 1 tablet, Oral, DAILY, First dose on 09/27/23 at 1230 $Given 09/28/2023 8:54 AM CDT 1 tablet sodium chloride (PF) 0.9% PF flush 3 mL 3 mL, Intracatheter, EVERY 8 HOURS, First dose on 09/27/23 at 0830, to lock peripheral IV dormant line, Pre-procedure $Given 09/28/2023 1:30 AM CDT 3 mLs sodium chloride (PF) 0.9% PF flush 3 mL 3 mL, Intracatheter, EVERY 1 MIN PRN, line flush, other, to ensure patency or to lock dormant line, Starting on 09/27/23 at 0816, Pre-procedure sodium citrate-citric acid (BICITRA) solution 30 mL 30 mL, Oral, ONCE, On Fri09/26/23 at 1700, For 1 dose, Only for gastric pH neutralization. Give 45 minutes pre-op before transporting to surgery., Antepartum $Given 09/27/2023 8:58 AM CDT 30 mLs documented in this encounter Active and Recently Administered Medications Times are shown in CDT. Scheduled Medication Order 09/26/2023 09/27/2023 09/28/2023 acetaminophen (TYLENOL) tablet 975 mg (COMPLETED) 975 mg, Oral, ONCE, On 09/27/23 at 1330, For 1 dose, Maximum acetaminophen dose from all sources = 75 mg/kg/day not to exceed 4 grams/day. 1348 ($Given - Provider: Dara Muñoz, FLAKITA) aspirin EC tablet 81 mg 81 mg, Oral, DAILY, First dose on 09/27/23 at 1230, DO NOT CRUSH. 1348 ($Given - Provider: Dara Muñoz RN) 0854 ($Given - Provider: Beverly Yadav RN) BUPivacaine (MARCAINE) 0.75 % injection 10.5 mg 10.5 mg (1.4 mL), Intrathecal, ONCE, On 09/27/23 at 0700, For 1 dose, given by Anesthesia Provider only, Intrapartum 0700 (Canceled Entry - Provider: Orders Generic Provider - Comment: Automatically canceled at discontinue of medication order) ceFAZolin (ANCEF) 1 g vial to attach to NS 100 ml bag for ADULT or 50 ml bag for PEDS (COMPLETED) Routine, 1 g, Intravenous, EVERY 8 HOURS, First dose on 09/27/23 at 1730, For 2 doses, Indications: Possible post-op infection 1728 ($New Bag - Provider: Tammy Ruelas RN) 0130 ($New Bag - Provider: Fadi Crooks, FLAKITA) ceFAZolin Sodium (ANCEF) injection 2 g (COMPLETED) Routine, 2 g, Intravenous, PRE-OP/PRE-PROCEDURE, Starting on Fri09/26/23 at 1658, For 1 dose, Give first dose within 1 hour PRIOR to incision. If patient weight is greater than or equal to 120 kg increase dose to 3 g., Indications: Perioperative Pharmacoprophylaxis, Antepartum 0927 ($Given - Provider: Chapo Rutherford MD) indomethacin (INDOCIN) capsule 50 mg (COMPLETED) 50 mg, Oral, EVERY 8 HOURS, First dose on 09/27/23 at 1800, For 2 doses 1731 ($Given - Provider: Tammy Ruelas RN) 0202 ($Given - Provider: Fadi Crooks, FLAKITA) multivitamin w/iron per tablet 1 tablet 1 tablet, Oral, DAILY, First dose on 09/27/23 at 1230 1230 (Canceled Entry - Provider: Orders Generic Provider - Comment: Automatically canceled at discontinue of medication order) 0854 ($Given - Provider: Beverly Yadav, FLAKITA) sodium chloride (PF) 0.9% PF flush 3 mL 3 mL, Intracatheter, EVERY 8 HOURS, First dose on 09/27/23 at 0830, to lock peripheral IV dormant line, Pre-procedure 1630 (Canceled Entry - Provider: Fadi Crooks, FLAKITA)2100 (Canceled Entry - Provider: Fadi Crooks, FLAKITA) 0130 ($Given - Provider: Fadi Crooks RN)0830 (Not Given - Provider: Beverly Yadav RN - Reason: No IV Access) sodium citrate-citric acid (BICITRA) solution 30 mL (COMPLETED) 30 mL, Oral, ONCE, On 09/26/23 at 1700, For 1 dose, Only for gastric pH neutralization. Give 45 minutes pre-op before transporting to surgery., Antepartum 1945 (Hold - Provider: Fadi Crooks RN - Reason: Order parameters not met) 0858 ($Given - Provider: Ngozi Granados, RN) Continuous Medication Order 09/26/2023 09/27/2023 09/28/2023 lactated ringers infusion (CANCELED) at 125 mL/hr, Intravenous, CONTINUOUS, Antepartum, Starting on 09/27/23 at 0000, Until 09/27/23 at 1216 0011 ($New Bag - Provider: Angi Crooks RN)0754 ($New Bag - Provider: Ngozi Granados, RN)0826 (Restarted - Provider: Ngozi Granados, RN) lactated ringers infusion at 100 mL/hr, Intravenous, CONTINUOUS, Pre-procedure, Starting on 09/27/23 at 0830, Until 09/28/23 at 1423 0912 ($New Bag - Provider: Chapo Rutherford MD)0940 (Anesthesia Volume Adjustment - Provider: Chapo Rutherford MD)0956 (Stopped - Provider: Chapo Rutherford MD) PRN Medication Order 09/26/2023 09/27/2023 09/28/2023 indomethacin (INDOCIN) 50 MG Suppository 50 mg (CANCELED) 50 mg, Rectal, EVERY 12 HOURS PRN, inflammatory pain, Starting on 09/27/23 at 0900, To be administered postprocedure, Antepartum 0946 ($Given - Provider: Rodger Granados RN) lactated ringers BOLUS 250 mL Intravenous, 250 mL, ONCE PRN, other, hypotension, Starting on 09/27/23 at 0632, For 1 dose, If no improvement in Blood Pressure with repositioning(if ordered), administer IV bolus as ordered. Treat for Systolic Blood Pressure less than 100 mmHg or drop in Blood Pressure by 20%. If unresponsive to Fluid Bolus, administer ePHEDrine OR phenylephrine (DERRICK-SYNEPHRINE) [if ordered] or page Anesthesia., Intrapartum lidocaine (LMX4) cream Topical, EVERY 1 HOUR PRN, pain, with VAD insertion, Starting on 09/27/23 at 0816, Apply at least 30 minutes prior to VAD insertion in divided doses as needed for size of site for insertion. MAX Dose: 2.5 g (?? of 5 g tube) Do NOT give if patient has a history of allergy to any local anesthetic or any jeniffer product. Do NOT use both lidocaine intradermal/subcutaneous injection and the lidocaine cream on the same site., Pre-procedure lidocaine 1 % 0.1-1 mL 0.1-1 mL, Other, EVERY 1 HOUR PRN, mild pain with VAD insertion, Starting on 09/27/23 at 0816, MAX dose 1 mL subcutaneous OR intradermal along the side of the vein in divided doses as needed for VAD insertion. Do NOT give if patient has a history of allergy to any local anesthetic or any jeniffer product. Do NOT use both lidocaine intradermal/subcutaneous injection and the lidocaine cream on the same site., Pre-procedure nalbuphine (NUBAIN) injection 2.5-5 mg 2.5-5 mg, Intravenous, EVERY 6 HOURS PRN, other, for pruritus, Starting on 09/27/23 at 0632, Give 2.5 mg initially. If pruritus persists after 30 minutes, may give additional 2.5 mg. If effective, then repeat effective dose Q6H PRN pruritus., Intra + Post phenylephrine (DERRICK-SYNEPHRINE) injection 100 mcg 100 mcg, Intravenous, EVERY 5 MIN PRN, if Systolic Blood Pressure less than 100 mmHg and Heart Rate greater than 55 bpm, Starting on 09/27/23 at 0632, For 4 doses, Check Blood Pressure EVERY 2 minutes and repeat PRN for 4 Doses. IF patient remains hypotensive (Systolic Blood Pressure less than 100 mmHg) AFTER the 4 dose, notify Anesthesia. Notify Anesthesia PRIOR to administering additional doses., Intrapartum sodium chloride (PF) 0.9% PF flush 3 mL 3 mL, Intracatheter, EVERY 1 MIN PRN, line flush, other, to ensure patency or to lock dormant line, Starting on 09/27/23 at 0816, Pre-procedure documented in this encounter Care Teams Instructor Of Sociology Relationship Specialty Start Date End Date No Ref-Primary, Physician PCP - General 07/22/23 Mica Aguilar MD [address] [place] [id number] Assigned OBGYN Provider 08/31/23 documented as of this encounter
--- OUTSIDE RECORDS SUMMARY | 2023-11-18 08:33 | XMS_ITS | Encounter Summary ---
Author Organization [place] Address [address] [place] [address] Care Team Providers Care Webbing Inspector Name Role Phone No Ref-Primary, Physician Primary Care Provider Reason for Visit * Reason Onset Date Comments Results 08/25/2023 Expanded Carrier Screening with her partner Encounter Details Date Type Department Care Team (Late st Contact Info) Description 08/25/2023 Telephone [facility] Maternal Medicine [facility] [email or web address] [place] [address] Nelsy Diaz, [address] [place] [address] [address] [place] [address] Results (Expanded Carrier Screening with [...] Info) Description 11/21/2023 10:15 AM CDT Appointment [facility] Maternal Medicine [facility] [email or web address] [place] [address] Tomasa Dickens MD [address] [place], [place] [address] Nitin Morris MD [address] [place] [address] 11/21/2023 10:45 AM CDT Office Visit [facility] Maternal Medicine [place] [address] [place] [phone] Tomasa Dickens MD [address] [place], [place] [address] Nitin Morris MD [address] [place], [place] [address] 12/05/2023 2:15 PM CDT Appointment [facility] Maternal Medicine [place] [address] [place] [phone] Tomasa Dickens MD [address] [place] [phone] 12/05/2023 2:45 PM CDT Office Visit [facility] Maternal Medicine [place] [address] [place] [phone] Tomasa Dickens MD [address] [place], [place] [address] 12/19/2023 11:00 AM CDT Appointment [facility] Maternal Medicine [place] [address] [place] [phone] Tomasa Dickens MD [address] [place], [place] [phone] 12/19/2023 11:30 AM CDT Office Visit [facility] Maternal Medicine [place] [address] [place] [phone] Tomasa Dickens MD [address] [place] [address] 12/26/2023 3:00 PM CDT Appointment [facility] Maternal Medicine [place] [address] [place] [phone] Tomasa Dickens MD [address] [place] [address] 12/26/2023 3:30 PM CDT Office Visit [facility] Maternal Medicine [place] [address] [place] [phone] Tomasa Dickens MD [address] [place] [address] 01/02/2024 2:15 PM CDT Appointment [facility] Maternal Medicine [place] [address] [place] [phone] Tomasa Dickens MD [address] [place] [address] 01/02/2024 2:45 PM CDT Office Visit [facility] Maternal Medicine [place] [address] [place] [phone] Tomasa Dickens MD [address] [place] [address] 01/09/2024 3:[address] [facility] Medicine [place] [address] [facility] [address] [place] [phone] Tomasa Dickens MD [address] [place] [address] 01/09/2024 3:30 PM CDT Office Visit [facility] Medicine [place] [address] [facility] [address] [place] [phone] Tomasa Dickens MD [address] [place], [place] [address] 01/16/2024 2:15 PM AIRFRAME TECHNICAL OFFICER Appointment [facility] [place] [address] [facility] [address] [place] [phone] Tomasa Dickens MD [address] [place] [address] 01/16/2024 2:45 PM AIRFRAME TECHNICAL OFFICER Office Visit [facility] [place] [address] [facility] [address] [place] [phone] Tomasa Dickens MD [address] [place], [place] [address] documented as of this encounter Visit Diagnoses Not on filedocumented in this encounter Care Teams Webbing Inspector Relationship Specialty Start Date End Date No Ref-Primary, Physician PCP - General 07/22/23 documented as of this encounter
--- OUTSIDE RECORDS SUMMARY | 2023-11-18 08:33 | XMS_ITS | Encounter Summary ---
Author Organization [place] Address [address] [place] [address]. 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 Diagnoses Maternity*FERNANDO: 02/10/24*[place]/Di Twins Cervical shortening affecting in second trimester [facility] [address] [place] [address] Referral ID Status Reason Start Date Expiration Date Visits Re quested Visits Authorized [id number] 1 1 Encounter Details Date Type Department Care Team (Late st Contact Info) Description 09/27/2023 9:12 AM CDT Anesthesia Event [facility] [address] [place] [address] Agustina Dinh MD [address] [facility] [address] [place] [address] Chapo Rutherford MD [address] [place] [address] Anesthesia Record Procedure Summary Procedure Name Responsible Anesthesiologist Anesthesia Start Time Anesthesia Stop Time Cerclage cervical (Cervix) Agustina Dinh MD 09/27/23 0912 09/27/23 1004 Events Date Time Event Comment 09/27/2023 0850 0912 An Start Anesthesia Star t is defined as when the anesthesia provider assumed care, began anesthesia prep, remained continuously present with the patient, and excludes all time for performing the pre-anesthesia evaluation. The Pre-Anesthesia Evaluation was completed before Anesthesia Start. 0912 MD Present 0913 An Start Data 0913 AN REASSESS I attest that I have identified and re-evaluated the patient immediately before the induction of anesthesia and I am satisfied that the anesthetic plan is suitable for the patient's condition and procedure. The first vital signs recorded are pre- induction. Chapo Rutherford MD 0926 Quick Note SAB placed 0932 Anesthesia Ready for Procedu re 0938 AN INCISION 0951 MD Present 0956 an stop data 1004 An Stop Electronically signed by Chapo Rutherford MD on September 27, 2023 10:04 AM Meds Name Total phenylephrine (DERRICK-SYNEPHRINE) injection 550 mcg lidocaine 2% 20 mg ceFAZolin Sodium (ANCEF) injection 2 g 2 g 0.75% Hyperbaric Bupivacaine (Intratheca l) 1.4 mL lactated ringers infusion 400 mL * Agents Name N2O Air * Blood No blood administrations on file. Lines, Drains, and Airways Type Details Placement Removal Peripheral IV 09/27/23; 0000; 18 G ; B Lentz; Anterior, Left; Lower forearm; Alcohol; 1; Tolerated well 09/27/23 0000 by Fadi Crooks, RN 09/28/23 0230 by Fadi Crooks, RN documented in this encounter Social History Tobacco Use Types Packs/Day Years [...] on file documented as of this encounter OR Notes * Anesthesia Postprocedure Evaluation - Agustina Dinh MD - 09/27/2023 4:17 PM CDT Patient: Kyara Villegas Procedure: Procedure(s): Cerclage cervical Anesthesia Type: Spinal Note: Disposition: Outpatient Postop Pain Control: Uneventful Sign Out: Well controlled pain PONV: No Neuro/Psych: Uneventful Sign Out: Acceptable/Baseline neuro status Airway/Respiratory: Uneventful Sign Out: Acceptable/Baseline resp. status CV/Hemodynamics: Uneventful Sign Out: Acceptable CV status; No obvious hypovolemia; No obvious fluid overload Other NRE: NONE DID A NON-ROUTINE EVENT OCCUR? No Last vitals: Vitals Value Taken Time BP 103/51 09/27/23 1432 Temp 36.9 ??C (98.4 ??F) 09/27/23 1000 Pulse 96 09/27/23 1432 Resp 16 09/27/23 1432 SpO2 98 % 09/27/23 1445 Electronically Signed By: Agustina Dinh MD September 27, 2023 4:17 PM * Anesthesia Procedure Notes - Chapo Rutherford MD - 09/27/2023 9:38 AM CDT Associated Order(s): Spinal Block Intrathecal injection Procedure Note Pre-Procedure Staff - Anesthesiologist: Agustina Dinh MD Resident/Fellow: Chapo Rutherford MD Performed By: resident and anesthesiologist Location: OR Procedure Start/Stop Times: 09/27/2023 9:20 AM and 09/27/2023 9:29 AM Pre-Anesthestic Checklist: patient identified, IV checked, risks and benefits discussed, informed consent, monitors and equipment checked, pre-op evaluation, at physician/surgeon's request and post-op pain management Timeout: Correct Patient: Yes Correct Procedure: Yes Correct Site: Yes Correct Position: Yes Procedure Documentation Procedure: intrathecal injection Patient Position: sitting Skin prep: Chloraprep Insertion Site: L3-4. (midline approach). Needle Gauge: 25. Needle Length (Inches): 3.5 Spinal Needle Type: Pencan Introducer used Introducer: 20 G # of attempts: 2 and # of redirects: 1 Assessment/Narrative Sensory Level: T5 CSF fluid: clear. Medication(s) Administered 0.75% Hyperbaric Bupivacaine (Intrathecal) - Intrathecal 1.4 mL - 09/27/2023 9:25:00 AM Medication Administration Time: 09/27/2023 9:20 AM FOR [facility] ([facility] ONLY: Pain Team Contact information: please page the Pain Team Via HeartFlow.Search Pain. During daytime hours, please page the attending first. At night please page the resident first. * Anesthesia Preprocedure Evaluation - Agustina Dinh MD - 09/27/2023 6:27 AM CDT Anesthesia Pre-Procedure Evaluation Patient: Kyara Villegas : 2000 Procedure : Procedure(s): Cerclage cervical History reviewed. No pertinent past medical history. History reviewed. No pertinent surgical history. No Known Allergies Social History Tobacco Use ??? Smoking status: Never Passive exposure: Never ??? Smokeless tobacco: Never Substance Use Topics ??? Alcohol use: Not Currently Wt Readings from Last 1 Encounters: 09/26/23 75.8 kg (167 lb) Anesthesia Evaluation Pt has not had prior anesthetic ROS/MED HX ENT/Pulmonary: (-) asthma Neurologic: - neg neurologic ROS Cardiovascular: - neg cardiovascular ROS METS/Exercise Tolerance: >4 METS Hematologic: Comments: Plt 261 (+) anemia, Musculoskeletal: GI/Hepatic: (+) GERD, Other, Renal/Genitourinary: - neg Renal ROS Endo: (+) Obesity, Psychiatric/Substance Use: - neg psychiatric ROS Infectious Disease: - neg infectious disease ROS Malignancy: - neg malignancy ROS Other: 20w4d mono/di twin (-) previous Physical Exam Airway Mallampati: II TM distance: > 3 FB Neck ROM: full Mouth opening: > 3 cm Respiratory Devices and Support Dental (+) Minor Abnormalities - some fillings, tiny chips Cardiovascular cardiovascular exam normal Rhythm and rate: regular and normal Pulmonary pulmonary exam normal breath sounds clear to auscultation OUTSIDE LABS: CBC: Lab Results Component Value Date WBC 11.7 (H) 09/26/2023 HGB 10.3 (L) 09/26/2023 HCT 30.5 (L) 09/26/2023 PLT 261 09/26/2023 BMP: No results found for: NA, POTASSIUM, CHLORIDE, CO2, BUN, CR, GLC COAGS: No results found for: PTT, INR, FIBR POC: No results found for: BGM, HCG, HCGS HEPATIC: No results found for: ALBUMIN, PROTTOTAL, ALT, AST, GGT, ALKPHOS, BILITOTAL,BILIDIRECT, BECCA OTHER: No results found for: PH, LACT, A1C, QUAN, PHOS, MAG, LIPASE, AMYLASE, TSH,T4, T3, CRP, SED Anesthesia Plan ASA Status: 2 NPO Status: NPO Appropriate Anesthesia Type: Spinal. Induction: N/a. Maintenance: N/A. Consents Anesthesia Plan(s) and associated risks, benefits, and realistic alternatives discussed. Questions answered and patient/sales representative electric service(s) expressed understanding. - Discussed: - Discussed with: Patient, Direct Care Specialist Postoperative Care Pain management: Multi-modal analgesia. PONV prophylaxis: Ondansetron (or other 5HT-3) Comments: Chapo Rutherford MD I have reviewed the pertinent notes and labs in the chart from the past 30 days and (re)examined the patient. Any updates or changes from those notes are reflected in this note. # Drug Induced Platelet Defect: home medication list includes an antiplatelet medication documented in this encounter Miscellaneous Notes * Anesthesia Care Transfer Note - Chapo Rutherford MD - 09/27/2023 10:05 AM CDT Patient: Kyara Villegas Procedure: Procedure(s): Cerclage cervical Diagnosis: * No pre-op diagnosis entered * Diagnosis Additional Information: No value filed. Anesthesia Type: Spinal Note: Oropharynx: oropharynx clear of all foreign objects and spontaneously breathing Level of Consciousness: awake Oxygen Supplementation: room air Independent Airway: airway patency satisfactory and stable Dentition: dentition unchanged Vital Signs Stable: post-procedure vital signs reviewed and stable Report to RN Given: handoff report given Patient transferred to: PACU Handoff Report: Identifed the Patient, Identified the Reponsible Provider, Reviewed the pertinent medical history, Discussed the surgical course, Reviewed Intra-OP anesthesia mangement and issues during anesthesia, Set expectations for post-procedure period and Allowed opportunity for questions andacknowledgement of understanding Vitals: Vitals Value Taken Time BP Temp Pulse Resp SpO2 100 % 09/27/23 1003 Vitals shown include unfiled device data. Electronically Signed By: Chapo Rutherford MD September 27, 2023 10:05 AM documented in this encounter Plan of Treatment Upcoming Encounters Date Type Department Care Team (Late st Contact Info) Description 11/21/2023 10:15 AM CDT Appointment [facility] Maternal Medicine [place] [address] [place] [phone] Tomasa Dickens MD [address] [place], [place] [address] Nitin Morris MD [address] [place], [place] [address] 11/21/2023 10:45 AM CDT Office Visit [facility] Medicine [place] [address] [place] [phone] Tomasa Dickens MD [address] [place], [place] [address] Nitin Morris MD [address] [place], [place] [address] 12/05/2023 2:15 PM CDT Appointment [facility] Medicine [place] [address] [place] [phone] Tomasa Dickens MD [address] [place] [address] 12/05/2023 2:45 PM CDT Office Visit [facility] Maternal Medicine Center [place] [address] [place] [phone] Tomasa Dickens MD [address] [place] [address] 12/19/2023 11:00 AM CDT Appointment [facility] Maternal Medicine [place] [address] [place] [phone] Tomasa Dickens MD [address] [place] [address] 12/19/2023 11:30 AM CDT Office Visit [facility] Maternal Medicine [place] [address] [place] [phone] Tomasa Dickens MD [address] [place] [address] 12/26/2023 3:00 PM CDT Appointment [facility] Maternal Medicine [place] [address] [place] [phone] Tomasa Dickens MD [address] [place] [address] 12/26/2023 3:30 PM CDT Office Visit [facility] Maternal Medicine Center [place] [address] [place] [phone] Tomasa Dickens MD [address] [place] [address] 01/02/2024 2:15 PM CDT Appointment [facility] Maternal Medicine [place] [address] [place] [phone] Tomasa Dickens MD [address] [place] [address] 01/02/2024 2:45 PM CDT Office Visit [facility] Maternal Medicine Center [place] [address] [place] [phone] Tomasa Dickens MD [address] [place] [address] 01/09/2024 3:00 PM CDT Appointment [facility] Maternal Medicine [place] [address] [place] [phone] Tomasa Dickens MD [address] [place] [address] 01/09/2024 3:30 PM CDT Office Visit [facility] Maternal Medicine [place] [address] [place] [phone] Tomasa Dickens MD [address] [place] [address] 01/16/2024 2:15 PM SHOT CORE DRILL OPERATOR Appointment [facility] Maternal Medicine [place] [address] [place] [phone] Tomasa Dickens MD [address] [place] [address] 01/16/2024 2:45 PM SHOT CORE DRILL OPERATOR Office Visit [facility] Maternal Medicine [place] [address] [place] [phone] Tomasa Dickens MD [address] [place] [address] documented as of this encounter Procedures Procedure Name Priority Date/Time Associated Diagnosis Comments ANE SPINAL BLOCK FORM Routine 09/27/2023 9:20 AM CDT documented in this encounter Results * Spinal Block (09/27/2023 9:20 AM CDT) [...] Medication Administration Time: 09/27/2023 9:20 AM FOR [facility] ([facility]) ONLY: ?? Pain Team Contact information: please page the Pain Team Via HeartFlow. Search Pain. During daytime hours, please page the attending first. At night please page the resident first. Agustina Dinh MD [place] [facility] documented in this encounter Visit Diagnoses Not on filedocumented in this encounter Administered Medications Inactive Administered Medications - up to 3 most recent administrations Medication Order MAR Action Action Date Dose Rate Site BUPivacaine 0.75% in dextrose 8.25% (intrathecal) (SENSORCAINE) 0.75-8.25 % injection Intrathecal, Starting on 09/27/23 at 0925, Anesthesia Intra-op $Given 09/27/2023 9:25 AM CDT 1.4 mLs ceFAZolin Sodium (ANCEF) injection 2 g Routine, 2 g, Intravenous, PRE-OP/PRE-PROCEDURE, Starting on 09/26/23 at 1658, For 1 dose, Give first dose within 1 hour PRIOR to incision. If patient weight is greater than or equal to 120 kg increase dose to 3 g., Indications: Perioperative Pharmacoprophylaxis, Antepartum $Given 09/27/2023 9:27 AM CDT 2 g lactated ringers infusion at 100 mL/hr, Intravenous, CONTINUOUS, Pre-procedure, Starting on 09/27/23 at 0830, Until 09/28/23 at 1423 $New Bag 09/27/2023 9:12 AM CDT lidocaine 2% Other, PRN, Starting on 09/27/23 at 0930, Anesthesia Intra-op $Given 09/27/2023 9:30 AM CDT 20 mg phenylephrine (DERRICK-SYNEPHRINE) injection Intravenous, CONTINUOUS PRN, Starting on 09/27/23 at 0948, Anesthesia Intra-op $New Bag 09/27/2023 9:48 AM CDT 150 mcg $Bolus 09/27/2023 9:42 AM CDT 100 mcg $Bolus 09/27/2023 9:34 AM CDT 100 mcg documented in this encounter Care Teams Linen Room Attendant Relationship Specialty Start Date End Date No Ref-Primary, Physician PCP - General 07/22/23 Mica Aguilar MD [address] [place] [address] Assigned OBGYN Provider 08/31/23 documented as of this encounter
--- OUTSIDE RECORDS SUMMARY | 2023-11-18 08:33 | XMS_ITS | Encounter Summary ---
Author Organization [facility] Address [address] [facility] [place] [address] Care Team Providers Care Health And Safety Representative Name Role Phone No Ref-Primary, Physician Primary Care Provider Mica Aguilar MD Unavailable [phone] Reason for Visit * Reason Comments cerclage * Auth/Cert (Routine) Specialty Diagnoses / Procedures Referred By Contac t Referred To Contact rail specialist Diagnoses Maternity*FERNANDO: 02/10/24*Buckingham/Di Twins Cervical shortening affecting in second trimester Ur [address] [place] [address] Referral ID Status Reason Start Date Expiration Date Visits Re quested Visits Authorized [id number] 1 1 Encounter Details Date Type Department Care Team (Late st Contact Info) Description 09/27/2023 9:00 AM CDT - 09/27/2023 10:15 AM CDT Surgery [facility] [address] [place] [address] Heidi Swain MD [address] [facility] [address] [place] [address] Cerclage cervical Surgery Details Date/Time Status Location OR Service Patient Class Case Class Case Type Trauma Case? 09/27/23 9:00 AM Posted UR L+D UR Z LD 03 Gynecology Inpatient NEST 5 - Semi-Urge nt (within 48hrs) Panel 1 Procedure LRB Anes Op Region Wound Class Comments Cerclage cervical N/A Spinal Cervix I-Clean Surgeon Surgeon Role Service Panel Heidi Swain MD Primary Gynecology 1 documented in this encounter Social History Tobacco [...] Sign Reading Time Taken Comments Blood Pressure 97/57 09/27/2023 10:15 AM CDT Pulse 83 09/27/2023 10:15 AM CDT Temperature 36.9 ??C (98.4 ??F) 09/27/2023 10:00 AM C DT Respiratory Rate 20 09/27/2023 10:15 AM CDT Oxygen Saturation 100% 09/27/2023 10:15 AM CDT Inhaled Oxygen Concentration - - Weight 75.8 kg (167 lb) 09/26/2023 4:59 PM CDT Height 154.9 cm (5' 1) 09/26/2023 4:59 PM CDT Body Mass Index 31.55 09/26/2023 4:59 PM CDT documented in this encounter Discharge Summaries * Heidi Swain MD - 09/28/2023 9:30 AM CDT [facility] Discharge Summary Kyara Villegas Age: [age] year old Date of : 2000 Date of Admission: 09/26/2023 Date of Discharge: 09/28/23 Admitting Physician: Heidi Swain MD Discharge Physician: Heidi Swain MD Admission Diagnosis: - Buckingham/di twin intrauterine at 20w3d - Cervical insufficiency by US and exam Discharge Diagnosis: - Buckingham/di twin intrauterine at 20w5d - Cervical insufficiency s/p cerclage placement (exam-indicated cerclage - 1 cm dilated at the timeof procedure, no prolapsing membranes) Procedures: Crane cervical cerclage, 1 suture (knot tied at [...] your medicines These medications were sent to [facility] [address] [place] [address], [facility] [address] acetaminophen 325 MG tablet Brief History of [...] cerclage was recommended and pt transferred to [facility] for further evaluation prior to planned procedure [...] mono/di twin Hospital Course: Admitted to antepartum. Nnamdi's cerclage placed without complication under spinal anesthesia. [...] unwell feeling Follow up: Follow up in [facility] clinic scheduled appointment this coming week [...] tablet by mouth daily Reyna Stern MD Erp Business Analyst Resident, PGY-3 09/28/2023 9:35 AM Physician Attestation [...] puede myron comenzado el trabajo de parto. Adelino significa que bravo tenido al menos 6 [...] encontrar m??s informaci??n en ingl??s? Vaya a [email or web address]://[email or web address].healthwise.net/patientedes Escriba N531 en la b??squeda para aprender m??s acerca de Aprenda cu??ndo llamar a tian m??dico raúl el embarazo (despu??s de 20 semanas). Revisado: 10 simone, 2023 Versi??n del contenido: 14.0 ?? [employer]. Las instrucciones de cuidado fueron adaptadas bajo licencia por tian profesional de atenci??n m??dica. Si usted tiene preguntas sobre gilles afecci??n m??dica o sobre estas instrucciones, siempre preguntea tian profesional de kel. [employer] niega toda garant??a o responsabilidad por tian [...] Fetus B: FHR 140s Reyna Stern MD Erp Business Analyst Resident, PGY-3 09/28/2023 11:54 AM * Heidi [...] concerning for cervical insufficiency; now POD#1 from Crane cerclage placement. Doing well postoperatively. Plan for [...] agreement with the plan. Reyna Stern MD Erp Business Analyst Resident, PGY-3 09/28/2023 9:14 AM Physician Attestation I saw and evaluated this patient prior to discharge. I discussed the patient with the resident/fellow and agree with plan of care as documented in the note. I personally reviewed vital signs, labs, imaging, and discussed the following plan with the patient, with the assistance of a public policy manager via iPad. . I personally spent 15 [...] Regular Adult Regular Pulse: 93 Resp: 16 Temp: 98.7 ??F (37.1 ??C) 98.9 ??F (37.2 ??C) 98.7 ??F (37.1 ??C) TempSrc: Oral Oral Oral Weight: 75.8 kg (167 lb) Height: 1.549 m (5' 1) General Appearance: NAD Abdomen: Gravid, NT. Pelvic: deferred to operating room exam Heart Rate: Fetus 1: 145 bpm, Fetus 2: 135 bpm via bedside ultrasound [place]: No contractions overnight A/P: 22 year old [...] and Physical September 26, 2023 Kyara Villegas [id number] HPI Kyara Villegas is a 22 year [...] cerclage was recommended and pt transferred to [facility] for further evaluation prior to planned procedure [...] Topical Q1H PRN Socorro Danielson MD lidocaine 1 % 0.1-1 mL 0.1-1 mL Other Q1H PRN Socorro Danielson MD lidocaine 1 % 0.1-1 mL 0.1-1 mL Other Q1H PRSocorro Teixeira MD metoclopramide (REGLAN) injection 10 mg 10 mg Intravenous Q6H PRN Socorro Danielson MD Or metoclopramide (REGLAN) tablet 10 mg 10 mg Oral Q6H PRSocorro Teixeira MD No Tdap Needed - Assessment: Patient does not need Tdap vaccine Does not apply Continuous PRN Socorro Danielson MD ondansetron (ZOFRAN ODT) ODT tab 4 mg 4 mg Oral Q6H PRSocorro Teixeira MD Or ondansetron (ZOFRAN) injection 4 mg 4 mg Intravenous Q6H PRSocorro Teixeira MD prochlorperazine (COMPAZINE) injection 10 mg 10 mg Intravenous Q6H PRN Socorro Danielson MD Or prochlorperazine (COMPAZINE) tablet 10 mg 10 mg Oral Q6H PRN Socorro Danielson MD Or prochlorperazine (COMPAZINE) suppository 25 mg 25 mg Rectal Q12H PRSocorro Teixeira MD sodium chloride (PF) 0.9% PF flush 3 mL 3 mL Intracatheter Q8H Socorro Danielson MD sodium chloride (PF) 0.9% PF flush 3 mL 3 mL Intracatheter q1 min prSocorro Teixeira MD sodium chloride (PF) 0.9% PF flush 3 mL 3 mL Intracatheter Q8H Socorro Danielson MD sodium chloride (PF) 0.9% PF flush 3 mL 3 mL Intracatheter q1 min Socorro Robles MD sodium citrate-citric acid (BICITRA) solution 30 [...] physiologic discharge without blood on collected swabs [place]: quiet x20 min, plan to continue x2h [...] Abnormality Status --------- ------ Adult Type and Screen[[id number]] In process Please view results for these [...] Abnormality Status --------- ------ Extra Serum Separator Tu...[[id number]] In process Extra Green Top ([place]...[[id number]] In process Please view results for these tests on the individual orders. Imaging [facility] US 09/26/2023 Monochorionic diamniotic twin gestation [...] of Dr. Heidi Swain. Raven Sauer MD LABOR MEDIATOR PGY-3 09/26/2023 6:38 PM Physician Attestation I [...] documented in this encounter Nursing Notes * Ngozi Granados RN - 09/27/2023 12:00 PM CDT Data: [...] instructions reviewed with patient and with ipad textiles and clothing teacher and patient states no questions. She is [...] pain that relieved with heat back Tylenol, [place] was quite. Patient tolerated food. Plan is to give Indocin and IV antibiotics and observe overnight. Continue with plan of care. * Op Note - Heidi Swain MD - 09/27/2023 10:13 AM CDT Operative Note: Cervical Cerclage Pre-Op Diagnosis: 1) Single intrauterine at 20w4d by 10w3d ultrasound 2) Monochorionic diamniotic twin gestation 3) Cervical insufficiency 4) Cervical shortening Post-Op Diagnosis: 1) Same Procedure: 1) Crane cervical cerclage, 1 suture (knot tied at 12 o'clock position) Surgeons: Attending: Heidi Swain MD Fellow: Socorro Danielson Robert Fellow PGY5 Resident: Anthony Jones MS3 Anesthesia: [...] shortened cervix noted yesterday (09/25) at our [facility] clinic during her first comprehensive anatomy ultrasound measuring 8 mm. Subsequent pelvic examination revealed a visually dilated cervix at 1 cm and digital examination revealing cervix to be 1/50 and soft in consistency. She was recommended to go th [facility] for further evaluation. After counseling regarding these [...] Kyara Villegas Primary Care Provider:Heidi Diane Primary Clinic:[facility] Gestational Age: 20w3d Kyara Villegas presents for cerclage placement due to [...] Info) Description 11/21/2023 10:15 AM CDT Appointment [facility] [place] [address] [facility] [address] [place] [address] [phone] Tomasa Dickens MD [address] [place] [address] [place] [address] [phone] Nitin Morris MD [address] [place] [address] [place] [address] [phone] 11/21/2023 10:45 AM CDT Office Visit [facility] [place] [address] [facility] [address] [place] [address] [phone] Tomasa Dickens MD [address] [place] [address] [place] [address] [phone] Nitin Morris MD [address] [place] [address] [place] [address] [phone] 12/05/2023 2:15 PM CDT Appointment [facility] [place] [address] [facility] [address] [place] [address] [phone] Tomasa Dickens MD [address] [place] [address] [place] [address] [phone] 12/05/2023 2:45 PM CDT Office Visit [facility] [place] [address] [place] [phone] Tomasa Dickens MD [address] [place] [address] [place] [address] 12/19/2023 11:00 AM CDT Appointment [facility] [place] [address] [place] [phone] Tomasa Dickens MD [address] [place] [address] [place] [address] 12/19/2023 11:30 AM CDT Office Visit [facility] [place] [address] [place] [phone] Tomasa Dickens MD [address] [place] [address] [place] [address] 12/26/2023 3:00 PM CDT Appointment [facility] [place] [address] [place] [phone] Tomasa Dickens MD [address] [place] [address] [place] [address] 12/26/2023 3:30 PM CDT Office Visit [facility] [place] [address] [place] [phone] Tomasa Dickens MD [address] [place] [address] [place] [address] 01/02/2024 2:15 PM CDT Appointment [facility] [place] [address] [place] [phone] Tomasa Dickens MD [address] [place] [address] [place] [address] 01/02/2024 2:45 PM CDT Office Visit [facility] [place] [address] [facility] [address] [place] [phone] Tomasa Dickens MD [address] [place] [address] [place] [address] 01/09/2024 3:00 PM CDT Appointment [facility] [place] [address] [place] [phone] Tomasa Dickens MD [address] [address] [place] [address] 01/09/2024 3:30 PM CDT Office Visit [facility] [place] [address] [place] [phone] Tomasa Dickens MD [address] [place] [address] 01/16/2024 2:15 PM COMMERCIAL FIELD INSPECTOR Appointment [facility] [place] [address] [place] [phone] Tomasa Dickens MD [address] [place], [place] [address] 01/16/2024 2:45 PM COMMERCIAL FIELD INSPECTOR Office Visit [facility] [place] [address] [place] [phone] Tomasa Dickens MD [address] [address] [place] [address] documented as of this encounter Procedures Procedure [...] 5:51 PM CDT 09/26/2023 6:04 PM CDT Jovanymyriam Roberta Danielson MD LAB - MICRO GENERAL ORDERABLES [facility] IDD LABORATORY [facility] Inf. Diseases Diag. Lab [address] [facility] [place] [address], [facility] * (ABNORMAL) UA with Microscopic (09/26/2023 [...] 09/26/2023 6:37 PM CDT UR LABORATORY Specific [place] Urine 1.018 1.003 - 1.035 09/26/2023 6:37 [...] MD LAB - URINE ORDERABLES UR LABORATORY [facility] [place] [facility] [address] [facility] [place] [address], [facility] * Chlamydia trachomatis PCR (09/26/2023 5:50 PM CDT) Chlamydia trachomatis Negative Negative 09/27/2023 11:37 AM CDT [facility] IDD LABORATORY Comment:A negative result by estate attorney mediated amplification does not preclude the presence of C. trachomatis infection because results are dependent on proper and adequate collection, absence of inhibitors and sufficient rRNA to be detected. Swab VAGINAL STRUCTURE / Unknown Non-blood Collection / Unknown 09/26/2023 5:50 PM CDT 09/26/2023 6:03 PM CDT Socorro Danielson MD LAB - MICRO GENERAL ORDERABLES [facility] IDD LABORATORY [facility] Inf. Diseases Diag. Lab [address] [facility] [place] [address], [facility] * Neisseria gonorrhoea PCR (09/26/2023 5:50 PM CDT) Neisseria gonorrhoeae Negative Negative 09/27/2023 11:37 AM CDT [facility]ORAT[facility] Comment:Negative for N. gono rrhoeae rRNA by estate attorney mediated amplification. A negative result by estate attorney mediated amplification does not preclude the presence of C. trachomatis infection because results are dependent on proper and adequate collection, absence of inhibitors and sufficient rRNA to be detected. Swab VAGINAL STRUCTURE / Unknown Non-blood Collection / Unknown 09/26/2023 5:50 PM CDT 09/26/2023 6:03 PM CDT Socorro Danielson MD LAB - MICRO GENERAL ORDERABLES [facility] ID[facility] LABORATORY [facility] Inf. Diseases Diag. Lab [address] [facility], [address] [place] [phone] * (ABNORMAL) Wet prep (09/26/2023 5:50 [...] [facility] Acute Care Lab [address] [place] [address], [address] [phone] * Extra Green Top ([place] Heparin) Tube (09/26/2023 5:15 PM CDT) Hold Specimen [facility] 09/26/2023 6:32 PM CDT UR LABORATORY Blood STRUCTURE OF RIGHT UPPER LIMB / Unknown Venipuncture / Unknown 09/26/2023 5:15 PM CDT 09/26/2023 5:25 PM CDT Heidi Swain MD LAB - BLOOD ORDERA BLES UR LABORATORY [facility] Acute Care Lab [facility], [address] [phone] * Extra Serum Separator Tube (SST) (09/26/2023 5:15 PM CDT) Hold Specimen JI 09/26/2023 6:32 PM CDT UR LABORATORY Blood STRUCTURE OF RIGHT UPPER LIMB / Unknown Venipuncture / Unknown 09/26/2023 5:15 PM CDT 09/26/2023 5:24 PM CDT Heidi Swain MD LAB - BLOOD ORDERA BLES UR LABORATORY [facility] Acute Care Lab [address] [facility], [address] * Adult Type and Screen (09/26/2023 5:15 PM CDT) Pathologist [facility] ABO/RH(D) A POS 09/26/2023 4:59 PM CDT UR BLOOD BANK Antibody Screen Negative Negative 09/26/2023 4:59 PM CDT UR BLOOD BANK SPECIMEN EXPIRATION DATE [id number] 09/26/2023 4:59 PM CDT UR BLOOD BANK Blood STRUCTURE OF RIGHT UPPER LIMB / Unknown Venipuncture / Unknown 09/26/2023 5:15 PM CDT 09/26/2023 5:20 PM CDT Socorro Danielson MD LAB - BLOOD BANK TEST ORDER UR BLOOD BANK [facility] Blood Components Lab [address] [place] [address], [address] * (ABNORMAL) CBC with platelets (09/26/2023 [...] [facility] Acute [facility] Lab [address] [facility], [address] [place] [address] documented in this encounter Visit Diagnoses Not on filedocumented in this encounter Administered Medications Inactive Administered Medications - up to 3 most recent administrations Medication Order MAR Action Action Date Dose Rate Site aspirin EC tablet 81 mg 81 mg, Oral, DAILY, First dose on 09/27/23 at 1230, DO NOT CRUSH. $Given 09/28/2023 8:54 AM CDT 81 mg $Given 09/27/2023 1:48 PM CDT 81 mg lactated ringers BOLUS 250 mL Intravenous, [...] page Anesthesia., Intrapartum lactated ringers infusion at 100 mL/hr, Intravenous, [...] at 0816, Pre-procedure documented in this encounter Active and Recently Administered Medications Times are shown in CDT. Scheduled Medication Order 09/26/2023 09/27/2023 09/28/2023 acetaminophen (TYLENOL) tablet 975 mg (COMPLETED) 975 mg, Oral, ONCE, On 09/27/23 at 1330, For 1 dose, Maximum acetaminophen dose from all sources = 75 mg/kg/day not to exceed 4 grams/day. 1348 ($Given - Provider: Dara Muñoz RN) aspirin EC tablet 81 mg 81 mg, [...] RN) 0130 ($New Bag - Provider: Fadi Crooks RN) ceFAZolin Sodium (ANCEF) injection 2 g (COMPLETED) Routine, 2 g, Intravenous, PRE-OP/PRE-PROCEDURE, Starting on Fri09/26/23 at 1658, For 1 dose, Give first dose within 1 hour PRIOR to incision. If patient weight is greater than or equal to 120 kg increase dose to 3 g., Indications: Perioperative Pharmacoprophylaxis, Antepartum 09 ($Given - Provider: Chapo Rutherford MD) indomethacin (INDOCIN) capsule 50 mg (COMPLETED) 50 mg, Oral, EVERY 8 HOURS, First dose on 09/27/23 at 1800, For 2 doses 1731 ($Given - Provider: Tammy Ruelas, FLAKITA) 0202 ($Given - Provider: Fadi Crooks RN) multivitamin w/iron per tablet 1 tablet 1 tablet, Oral, DAILY, First dose on 09/27/23 at 1230 1230 (Canceled Entry - Provider: Orders Generic Provider - Comment: Automatically canceled at discontinue of medication order) 0854 ($Given - Provider: Beverly Yadav RN) sodium chloride (PF) 0.9% PF flush 3 mL 3 mL, Intracatheter, EVERY 8 HOURS, First dose on 09/27/23 at 0830, to lock peripheral IV dormant line, Pre-procedure 1630 (Canceled Entry - Provider: Fadi Crooks RN)2100 (Canceled Entry - Provider: Fadi Crooks RN) 0130 ($Given - Provider: Fadi Crooks RN)0830 (Not Given - Provider: Beverly Yadav RN - Reason: No IV Access) sodium citrate-citric acid (BICITRA) solution 30 mL (COMPLETED) 30 mL, Oral, ONCE, On Fri09/26/23 at 1700, For 1 dose, Only for gastric pH neutralization. Give 45 minutes pre-op before transporting to surgery., Antepartum 194 (Hold - Provider: Fadi Crooks RN - Reason: Order parameters not met) 0858 ($Given - Provider: Ngozi Granados, RN) Continuous Medication Order 09/26/2023 09/27/2023 09/28/2023 lactated ringers infusion (CANCELED) at 125 mL/hr, Intravenous, CONTINUOUS, Antepartum, Starting on 09/27/23 at 0000, Until 09/27/23 at 1216 0011 ($New Bag - Provider: Angi Crooks RN)0754 ($New Bag - Provider: Ngozi Granados, FLAKITA)0826 (Restarted - Provider: Ngozi Granados RN) lactated ringers infusion at 100 mL/hr, [...] Pre-procedure documented in this encounter Care Teams Health And Safety Representative Relationship Specialty Start Date End Date No Ref-Primary, Physician PCP - General 07/22/23 Mica Aguilar MD [address] [facility] [address] [place] [address] Assigned OBGYN Provider 08/31/23 documented as of this encounter
--- OUTSIDE RECORDS SUMMARY | 2023-11-18 08:34 | XMS_ITS | Clinical Summary ---
Author Organization [facility] [employer] [facility] Address [place], [place] [address] Care Team Providers Care Travel Ticketing Reviewer Name Role Phone None Primary Care Provider Unavailabl e Allergies No known active allergies Medications Medication Sig Dispensed Refills Start Date End Date Status ondansetron (ZOFRAN ODT) 4 mg disintegrating tabletIndications:Abdom inal pain during , first trimester,Nausea Place 1 Tablet (4 mg) on the tongue every 8 hours if needed for Nausea/Vomiting . 12 Tablet 06/24/2023 Active Social History Tobacco Use Types Packs/Day Years [...] CDT Plan of Treatment Not on file Care Teams Travel Ticketing Reviewer Relationship Specialty Start Date End Date None . PCP - General 06/23/23
== END 2023-11-13 12:36 | disposition home or self-care (01) ==
LOC: NFLDREF 11-18 08:29
PROVIDERS: Visit Provider Obstetrics & Gynecology
DX: Z34.02 Encounter for supervision of normal first pregnancy, second trimester (principal)
CPT/HCPCS: 86592

== ENCOUNTER 2023-11-20 08:23 | Outpatient (CLI) | payer BC, SELFPAY ==
--- OUTSIDE RECORDS SUMMARY | 2023-11-24 07:37 | XMS_ITS | Encounter Summary ---
Author Organization [place] Address [address] [facility] [place] [address] Care Team Providers Care Sleep Manager Name Role Phone No Ref-Primary, Physician Primary Care Provider Mica Aguilar MD Unavailable [phone] Reason for Visit * Reason Comments Ultrasound RL2/MCA/UAR- M/D MYRTLE WTH, A: EFW 11% Encounter Details Date Type Department Care Team (Latest Contact Info) Description 11/21/2023 10:45 AM CDT Office Visit [facility] [place] [address] [facility] [address] [place] [address] Tomasa Dickens MD [address] [place] [address] Nitin Morris MD [address] [place] [address] 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) Social History Tobacco Use [...] as of this encounter Progress Notes * Nitin Morris MD - 11/21/2023 10:45 AM CDT The patient was seen for an ultrasound in the [facility] clinic today. For a detailed report of the ultrasound examination, please see the ultrasound report which can be found under the imaging tab. If you have questions regarding today's evaluation or if we can be of further service, please contact the [facility]. Nitin Morris M.D. Maternal -Medicine Specialist documented in this encounter Nursing Notes * Janet Aguillon RN - 11/21/2023 10:45 AM CDT icu nurse used via IPAD during MFM appointment. Patient reports movement x2, denies pain, contractions, leaking of fluid, or bleeding. Reports passing GCT in [place]. Patient denies headache, visual changes, nausea/vomiting, epigastric pain related to preeclampsia. SBAR given to MFM , see their note in Epic. documented in this encounter Plan of Treatment Upcoming Encounters Date Type Department Care Team (Late st Contact Info) Description 12/05/2023 2:15 PM CDT Appointment [facility] [address] [place] [address] Didi Daniel MD [address] [facility] [address] [place] [address] 12/05/2023 2:45 PM CDT Office Visit [facility] [address] [place] [address] Didi Daniel MD [address] [facility] [address] [place] [address] 12/19/2023 11:00 AM CDT Appointment [facility] [place] [address] [place] [address] Tomasa Dickens MD [address] [place] [address] 12/19/2023 11:30 AM CDT Office Visit [facility] [place] [address] [place] [phone] Tomasa Dickens MD [address] [place] [address] 12/26/2023 3:00 PM CDT Appointment [facility] [place] [address] [place] [phone] Tomasa Dickens MD [address] [place], [place] [address] 12/26/2023 3:30 PM CDT Office Visit [facility] [place] [address] [place] [phone] Tomasa Dickens MD [address] [place], [place] [address] 01/02/2024 2:15 PM CDT Appointment [facility] [place] [address] [place] [phone] Tomasa Dickens MD [address] [place], [place] [address] 01/02/2024 2:45 PM CDT Office Visit [facility] [place] [address] [facility] [address] [place] [phone] Tomasa Dickens MD [address] [place] [address] 01/09/2024 3:00 PM CDT Appointment [facility] [place] [address] [facility] [address] [place] [phone] Tomasa Dickens MD [address] [place] [address] 01/09/2024 3:30 PM CDT Office Visit [facility] [place] [address] [facility] [address] [place] [phone] Tomasa Dickens MD [address] [place] [address] 01/16/2024 2:15 PM JUNIOR BUYER Appointment [facility] [place] [address] [facility] [address] [place] [phone] Tomasa Dickens MD [address] [place] [address] 01/16/2024 2:45 PM JUNIOR BUYER Office Visit [facility] [place] [address] [facility] [address] [place] [phone] Tomasa Dickens MD [address] [place] [address] documented as of this encounter Visit Diagnoses Diagnosis 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- Primary documented in this encounter Care Teams Sleep Manager Relationship Specialty Start Date End Date No Ref-Primary, Physician PCP - General 07/22/23 Mica Aguilar MD [address] [address] Assigned OBGYN Provider 08/31/23 documented as of this encounter
--- OUTSIDE RECORDS SUMMARY | 2023-11-24 07:37 | XMS_ITS | Encounter Summary ---
Author Organization [place] Address [address] [facility] [place] [address] Care Team Providers Care Director Emergency Department Name Role Phone No Ref-Primary, Physician Primary Care Provider Mica Aguilar MD Unavailable [phone] Encounter Details Date Type Department Care Team (Latest Contact Info) Description 11/21/2023 Travel Social History Tobacco Use Types Packs/Day [...] Info) Description 12/05/2023 2:15 PM CDT Appointment [facility] [place] [address] [facility] [address] [place] [address] Didi Daniel MD [address] [facility] [address] [place] [address] 12/05/2023 2:45 PM CDT Office Visit [facility] [place] [address] [place] [phone] Didi Daniel MD [address] [facility] [address] [place] [address] 12/19/2023 11:00 AM CDT Appointment [facility] [place] [address] [place] [phone] Tomasa Dickens MD [address] [place] [address] 12/19/2023 11:30 AM CDT Office Visit [facility] [place] [address] [place] [phone] Tomasa Dickens MD [address] [place] [address] 12/26/2023 3:00 PM CDT Appointment [facility] [place] [address] [place] [phone] Tomaas Dickens MD [address] [place] [address] 12/26/2023 3:30 PM CDT Office Visit [facility] [place] [address] [place] [phone] Tomasa Dickens MD [address] [place] [address] 01/02/2024 2:15 PM CDT Appointment [facility] [place] [address] [place] [phone] Tomasa Dickens MD [address] [place] [address] 01/02/2024 2:45 PM CDT Office Visit [facility] [place] [address] [place] [phone] Tomasa Dickens MD [address] [place] [address] 01/09/2024 3:00 PM CDT Appointment [facility] [place] [address] [place] [phone] Tomasa Dickens MD [address] [place] [address] 01/09/2024 3:30 PM CDT Office Visit [facility] [place] [address] [place] [phone] Tomasa Dickens MD [address] [place] [address] 01/16/2024 2:15 PM 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 Appointment [facility] [place] [address] [place] [phone] Tomasa Dickens MD [address] [place] [address] 01/16/2024 2:45 PM 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 MANAGER Office Visit [facility] [place] [address] [place] [phone] Tomasa Dickens MD [address] [place], [place] [address] documented as of this encounter Visit Diagnoses Not on filedocumented in this encounter Care Teams Director Emergency Department Relationship Specialty Start Date End Date No Ref-Primary, Physician PCP - General 07/22/23 Mica Aguilar MD [address] [facility] [address] [place], [place] [id number] Assigned OBGYN Provider 08/31/23 documented as of this encounter
--- OUTSIDE RECORDS SUMMARY | 2023-11-24 07:37 | XMS_ITS | Referral Summary ---
Author Organization [place] Address [facility] [place] [address] Care Team Providers Care [employer] Tax Principal Name Role Phone No Ref-Primary, Physician Primary Care Provider Vaniat Lin MD Unavailable [phone] Encounters Date Type Department Care Team Description 11/21/2023 Travel 11/21/2023 10:45 AM CDT Office Visit [facility] [address] [place] [phone] Raya Dickens MD Nashif, Sereen, MD 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) 11/21/2023 9:59 AM CDT - 11/21/2023 11:59 PM CDT Hospital Encounter [facility] Maternal Medicine [facility] [address] [facility] [address] [place] [address] Raya Dickens MD Nashif, Sereen, MD 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 Discharge Disposition: Home or Self Care 11/07/2023 Travel 11/07/2023 2:00 PM CDT Office Visit [facility] Maternal Medicine [facility] [address] [place] [phone] Angelica Wright MD 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 (Primary Dx) 11/07/2023 1:01 PM CDT - 11/07/2023 11:59 PM CDT Hospital Encounter [facility] Maternal Medicine [facility] [address] [place] [address] Angelica Wright MD 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 Discharge Disposition: Home or Self Care 10/24/2023 Travel 10/24/2023 2:45 PM CDT Office Visit [facility] Maternal Medicine [facility] [address] [place] [address] Angelica Wright MD Nyholm, Jessica Lea, MD 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 (Primary Dx) 10/24/2023 2:10 PM CDT - 10/24/2023 11:59 PM CDT Hospital Encounter [facility] Maternal Medicine [place] [address] [place] [phone] Angelica Wright MD 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 Discharge Disposition: Home or Self Care 10/10/2023 Office Visit [facility] [address] [place] [phone] Esequiel Grier MD cardiac disease affecting , fetus 1 of multiple gestation (Primary Dx); cardiac disease affecting , fetus 2 of multiple gestation 10/10/2023 Travel 10/10/2023 11:09 AM CDT - 10/10/2023 11:59 PM CDT Hospital Encounter [facility] [address] [place] [phone] Vanita Lin MD Paredes, Carmen R 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 Discharge Disposition: Home or Self Care 10/10/2023 10:59 AM CDT - 10/10/2023 11:08 AM CDT Hospital Encounter [facility] [address] [place] [address] Vanita Lin MD 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 Discharge Disposition: Home or Self Care 10/08/2023 Travel 10/08/2023 12:15 PM CDT Office Visit [facility] [place] [address] [place] [address] Vanita Lin MD Rauk, Phillip Neil, MD 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 (Primary Dx) 10/08/2023 11:26 AM CDT - 10/08/2023 11:59 PM CDT Hospital Encounter [facility] Maternal Medicine [facility] [address] [place] [address] Vanita Lin MD Rauk, Case Seals MD 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 Discharge Disposition: Home or Self Care 09/30/2023 Travel 09/30/2023 9:15 AM CDT Office Visit [facility] Maternal Medicine [place] [address] [place] [address] Vanita Lin MD Rauk, Phillip Neil, MD 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 (Primary Dx) 09/30/2023 8:45 AM CDT - 09/30/2023 11:59 PM CDT Hospital Encounter [facility] Maternal Medicine [facility] [address] [place] [address] Vanita Lin MD Rauk, Phillip Neil, MD 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 Discharge Disposition: Home or Self Care 09/26/2023 4:43 PM CDT - 09/28/2023 12:22 PM CDT Hospital Encounter [facility] [address] [place] [address] Heidi Swain MD Cervical shortening affecting in second trimester (Primary Dx) Discharge Disposition: Home or Self Care 09/27/2023 9:12 AM CDT Anesthesia Event [facility] [address] [place] [address], [place] [phone] Agustina Dinh MD Yang, Simon, MD 09/27/2023 9:00 AM CDT - 09/27/2023 10:15 AM CDT Surgery [facility] [address] [place] [address], [place] [phone] Heidi Swain MD Cerclage cervical 09/26/2023 Travel 09/26/2023 1:30 PM CDT Office Visit [facility] Weekend Receptionist Services [address] [place] [phone] Lamar Griffith 09/26/2023 2:45 PM CDT Office Visit [facility] Maternal Medicine [place] [address] [place] [phone] Vanita Lin MD Yamamura, Yasuko, MD 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 (Primary Dx); Cervical insufficiency during in second trimester, antepartum 09/26/2023 1:22 PM CDT - 09/26/2023 4:42 PM CDT Hospital Encounter [facility] Medicine [facility] [address] [place] [phone] Vanita Lin MD Yamamura, Yasuko, MD 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 Discharge Disposition: Home or Self Care 08/29/2023 Travel 08/29/2023 2:00 PM CDT Office Visit [facility] Medicine [facility] [address] [place] [phone] Vanita Lin MD Rauk, Case Seals MD 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 (Primary Dx) 08/29/2023 1:19 PM CDT - 08/29/2023 11:59 PM CDT Hospital Encounter [facility] Maternal Medicine [facility] [address] [place] [address] Vanita Lin MD Rauk, Case Seals MD 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 Discharge Disposition: Home or Self Care 08/25/[address] [facility] Medicine [facility] [address] [place] [address] Nelsy Diaz, GC Results (Expanded Carrier Screening [...] Info) Description 12/05/2023 2:15 PM CDT Appointment [facility] Maternal Medicine [place] [address] [place] [phone] Didi Daniel MD [address] [place] [address] 12/05/2023 2:45 PM CDT Office Visit [facility] Medicine [place] [address] [facility] [address] [place] [phone] Didi Daniel MD [address] [place] [address] 12/19/2023 11:00 AM CDT Appointment [facility] Medicine [place] [address] [address] [facility] [address] [place] [phone] Raya Dickens MD [address] [place], [place] [address] 12/19/2023 11:30 AM CDT Office Visit [facility] Medicine [place] [address] [facility] [address] [place] [phone] Raya Dickens MD [address] [place], [place] [phone] 12/26/2023 3:00 PM CDT Appointment [facility] Maternal Medicine [place] [address] [place] [address] Raya Dickens MD [address] [place] [address] 12/26/2023 3:30 PM CDT Office Visit [facility] M[facility] Medicine Center [place] [address] [place] [phone] Raya Dickens MD [address] [place] [address] 01/02/2024 2:15 PM CDT Appointment [facility] Maternal Medicine [place] [address] [place] [phone] Raya Dickens MD [address] [place] [address] 01/02/2024 2:45 PM CDT Office Visit [facility] Maternal Medicine [place] [address] [place] [phone] Raya Dickens MD [address] [place] [address] 01/09/2024 3:00 PM CDT Appointment [facility] Maternal Medicine [place] [address] [place] [phone] Raya Dickens MD [address] [place], [place] [address] 01/09/2024 3:30 PM CDT Office Visit [facility] Maternal Medicine [place] [address] [place] [phone] Raya Dickens MD [address] [place], [place] [address] 01/16/2024 2:15 PM REHAB TECH Appointment [facility] [place] [address] [place] [phone] Raya Dickens MD [address] [place], [place] [address] 01/16/2024 2:45 PM REHAB TECH Office Visit [facility] Maternal Medicine [facility] [address] [place] [phone] Raya Dickens MD [address] [place], [place] [phone] Procedures Procedure Name Priority Date/Time Associated Diagnosis Comments MFM TWINS US COMPREHENSIVE F/U Routine 11/21/2023 11:19 AM CDT 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 MFM TWINS US COMPREHENSIVE F/U Routine 11/07/2023 [...] Results * MFM Twins US Comprehensive F/U (11/21/2023 11:19 AM CDT) Only the most recent of5 resultswithin the time period is included. Anatomical Region Laterality Modality Ultrasound 11/21/2023 9:59 AM CDT Impressions 11/21/2023 11:54 AM CDT IMPRESSION ----- Monochorionic diamniotic twin gestation at 28w 3d gestational age. Fetus 1 1. None of the anomalies commonly detected by ultrasound were evident in the detailed anatomic survey described above. 2. Growth parameters and estimated weight were appropriate for gestational age and stable from previous assessment at 11% 3. The amniotic fluid volume appeared normal. A normal bladder was visualized. 4. The umbilical artery Doppler studies were within normal limits. 5. The middle cerebral artery Doppler studies were within normal limits. Fetus 2 1. None of the anomalies commonly detected by ultrasound were evident in the detailed anatomic survey described above. 2. Growth parameters and estimated weight were appropriate for gestational age. The inter-twin discordance was 9.8%. 3. The amniotic fluid volume appeared normal. A normal bladder was visualized. 4. The umbilical artery Doppler studies were within normal limits. 5. The middle cerebral artery Doppler studies were within normal limits. Today's ultrasound does not support a diagnosis of twin twin transfusion syndrome or twin anemia polycythemia syndrome. Narrative 11/21/2023 11:54 AM CDT ?Comp Follow Up ----- Pat. Name: ROLANDO VILLEGAS KYARA ? Study Date: ??11/21/2023 9:59am Pat. NO: ??[id number] ?Referring ??MD: RAYA SHAH Site: ? Wind Tunnel Technician: [address] RDMS : ??2000 ?Age: ?? 23 ----- INDICATION ----- Reevaluate growth, Twin A - EFW 11% on previous ultrasound Monochorionic, Diamniotic Twin gestation METHOD ----- Transabdominal ultrasound examination. View: Sufficient ----- Twin . Number of fetuses: 2. Monochorionic-diamniotic Membrane Description: thin dividing membrane visualized between fetuses 1 and 2 DATING ----- ? Date ?Details ?Gest. age ?FERNANDO LMP ?04/29/2023 ?Cycle: irregular cycle ? 29 w + 3 d ? 02/03/2024 Previous U/S ?07/18/2023 ?GA, GA 10 w + 3 d ?28 w + 3 d ? 02/10/2024 U/S Fetus 1 ? 11/21/2023 ? based upon AC, BPD, Femur, HC ?27 w + 5 d ? 02/15/2024 U/S Fetus 2 ?based upon AC, BPD, Femur, HC ?28 w + 1 d ? 02/12/2024 Assigned dating ?based on ultrasound (GA), selected on 11/07/2023 ?28 w + 3 d ? 02/10/2024 Fetus 1: GENERAL EVALUATION ----- Cardiac activity present. FHR 158 bpm. movements: visualized. Presentation: cephalic, maternal right. presenting. Placenta: Anterior, thin dividing membrane Umbilical cord: 3 vessel cord Amniotic fluid: Amount of AF: normal. MVP 7.6 cm Fetus 2: GENERAL EVALUATION ----- Cardiac activity present. FHR 144 bpm. movements: visualized. Presentation: breech, maternal left. superior. Placenta: Anterior, thin dividing membrane Umbilical cord: 3 vessel cord Amniotic fluid: Amount of AF: normal. MVP 5.6 cm Fetus 1: BIOMETRY ----- BPD ? 70.2 ?mm ? 28w 1d ?Hadlock OFD ? 92.0 ?mm ? 27w 2d ?Nicolaides HC ? 258.7 ?mm ? 28w 1d ? Hadlock AC ? 233.9 ?mm ? 27w 5d ?22% ?Hadlock Femur ?49.3 ?mm ? 26w 4d ? Hadlock Humerus ? 45.3 ? mm ?26w 6d ?Celestina Weight Calculation: EFW ?1,071 ?g ? 11% ?Hadlock EFW (lb,oz) ?2 lb 6 ?oz EFW by ?Hadlock ([id number]) EFW discordance ?9.2 ? % Head / Face / Neck Biometry: Aircraft De Icer Installer ?5.5 ? mm Fetus 2: BIOMETRY ----- BPD ? 69.9 ?mm ? 28w 1d ?Hadlock OFD ? 94.3 ?mm ? 27w 6d ?Nicolaides HC ? 263.3 ?mm ? 28w 5d ? Hadlock AC ? 247.1 ?mm ? 29w 0d ?59% ?Hadlock Femur ?49.7 ?mm ? 26w 5d ? Hadlock Humerus ? 45.2 ? mm ?26w 6d ?Celestina Weight Calculation: EFW ?1,180 ?g ?27% ? Hadlock EFW (lb,oz) ?2 lb 10 ?oz EFW by ?Hadlock ([id number]) EFW discordance ?9.2 ? % Fetus 1: ANATOMY ----- The following structures appear normal: Abdomen ? Bladder. sex: female. Fetus 2: ANATOMY ----- The following structures appear normal: Abdomen ? Bladder. sex: female. Fetus 1: DOPPLER ----- Umbilical Artery: normal. Sampling site: midcord PI ? 1.25 ? 89% ? Kunal HR ? 151 ? bpm Mid Cerebral Artery: normal PS ? 37.16 ?cm/s PS ? 0.99 ?MoM Fetus 2: DOPPLER ----- Umbilical Artery: normal. Sampling site: midcord PI ? 1.18 ? 82% ? Kunal HR ? 173 ? bpm Mid Cerebral Artery: normal PS ? 46.44 ?cm/s PS ? 1.23 ?MoM RECOMMENDATION ----- Thank-you for referring your patient to assess growth and for signs of TTTS/TAPS due to monochorionic twin . We discussed the findings on today's ultrasound with the patient. - Continue serial ultrasounds to assess for TTTS/TAPS every 2 weeks. - Serial growth every 4 weeks. - testing with NST/MVP or BPP is recommended at 32 weeks due to monochorionic . Return to primary provider for continued care. If you have questions regarding today's evaluation or if we can be of further service, please contact the Maternal- Medicine Center. anomalies may be present but not detected I spent a total of 10 minutes on the date of this encounter including preparing to see the patient (reviewing medical records/tests), counseling and discussing the plan of care, documenting the visit in the electronic medical record, and communicating with other health home care assistant and/or care coordination. Procedure Note Nitin Morris MD - 11/21/2023 Comp Follow Up ----- Pat. Name: KYARA ALVAREZ Study Date: 11/21/2023 9:59am Pat. NO: [id number] Referring MD: RAYA SHAH Site: Wind Tunnel Technician: [address] Street RDMS : 2000 Age: 23 ----- INDICATION ----- Reevaluate growth, Twin A - EFW 11% on previous ultrasound Monochorionic, Diamniotic Twin gestation METHOD ----- Transabdominal ultrasound examination. View: Sufficient ----- Twin . Number of fetuses: 2. Monochorionic-diamniotic Membrane Description: thin dividing membrane visualized between fetuses 1and 2 DATING ----- DateDetailsGest. age FERNANDO LMP 04/29/2023ycle: irregular cycle29 w + 3 d 02/03/2024 Previous U/S 07/18/2023 GA, GA10 w + 3 d28 w + 3 d 02/10/2024 U/S Fetus 1 11/21/2023 basedupon AC, BPD, Femur, HC 27w + 5 d 02/15/2024 U/S Fetus 2based upon AC, BPD, Femur, HC28 w + 1 d 02/12/2024 Assigned dating based on ultrasound (GA), selected on11/07/2023 28w + 3 d 02/10/2024 Fetus 1: GENERAL EVALUATION ----- Cardiac activity present. FHR 158 bpm. movements: visualized.Presentation: cephalic, maternal right. presenting. Placenta: Anterior, thin dividing membrane Umbilical cord: 3 vessel cord Amniotic fluid: Amount of AF: normal. MVP 7.6 cm Fetus 2: GENERAL EVALUATION ----- Cardiac activity present. FHR 144 bpm. movements: visualized.Presentation: breech, maternal left. superior. Placenta: Anterior, thin dividing membrane Umbilical cord: 3 vessel cord Amniotic fluid: Amount of AF: normal. MVP 5.6 cm Fetus 1: BIOMETRY ----- BPD 70.2mm 28w 1dHadlock OFD 92.0mm 27w 2dNicolaides HC 258.7mm 28w 1dHadlock AC 233.9mm 27w 5d 22%Hadlock Femur 49.3mm 26w 4dHadlock Humerus 45.3mm 26w 6dJeanty Weight Calculation: EFW 1,071g 11%Hadlock EFW (lb,oz) 2 lb 6oz EFW by Hadlock([id number]) EFW discordance 9.2% Head / Face / Neck Biometry: Aircraft De Icer Installer 5.5mm Fetus 2: BIOMETRY ----- BPD 69.9mm 28w 1dHadlock OFD 94.3mm 27w 6dNicolaides HC 263.3mm 28w 5dHadlock AC 247.1mm 29w 0d 59%Hadlock Femur 49.7mm 26w 5dHadlock Humerus 45.2mm 26w 6dJeanty Weight Calculation: EFW 1,180g 27%Hadlock EFW (lb,oz) 2 lb 10oz EFW by Hadlock([id number]-FL) EFW discordance 9.2% Fetus 1: ANATOMY ----- The following structures appear normal: Abdomen Bladder. sex: female. Fetus 2: ANATOMY ----- The following structures appear normal: Abdomen Bladder. sex: female. Fetus 1: DOPPLER ----- Umbilical Artery: normal. Sampling site: midcord PI 1.2589% Kunal HR 151bpm Mid Cerebral Artery: normal PS 37.16cm/s PS 0.99MoM Fetus 2: DOPPLER ----- Umbilical Artery: normal. Sampling site: midcord PI 1.1882% Kunal HR 173bpm Mid Cerebral Artery: normal PS 46.44cm/s PS 1.23MoM RECOMMENDATION ----- Thank-you for referring your patient to assess growth and for signs ofTTTS/TAPS due to monochorionic twin . We discussed the findings on today's ultrasound with the patient. - Continue serial ultrasounds to assess for TTTS/TAPS every 2 weeks. - Serial growth every 4 weeks. - testing with NST/MVP or BPP is recommended at 32 weeks due tomonochorionic . Return to primary provider for continued care. If you have questions regarding today's evaluation or if we can be offurther service, please contact the M[facility] Medicine Center. anomalies may be present but not detected I spent a total of 10 minutes on the date of this encounter includingpreparing to see the patient (reviewing medical records/tests), counselingand discussing the plan of care, documenting the visit in the electronic medical record, andcommunicating with other health home care assistant and/or carecoordination. IMPRESSION ----- Monochorionic diamniotic twin gestation at 28w 3d gestational age. Fetus 1 1. None of the anomalies commonly detected by ultrasound were evident inthe detailed anatomic survey described above. 2. Growth parameters and estimated weight were appropriate forgestational age and stable from previous assessment at 11% 3. The amniotic fluid volume appeared normal. A normal bladder wasvisualized. 4. The umbilical artery Doppler studies were within normal limits. 5. The middle cerebral artery Doppler studies were within normal limits. Fetus 2 1. None of the anomalies commonly detected by ultrasound were evident inthe detailed anatomic survey described above. 2. Growth parameters and estimated weight were appropriate forgestational age. The inter-twin discordance was 9.8%. 3. The amniotic fluid volume appeared normal. A normal bladder wasvisualized. 4. The umbilical artery Doppler studies were within normal limits. 5. The middle cerebral artery Doppler studies were within normal limits. Today's ultrasound does not support a diagnosis of twin twin transfusionsyndrome or twin anemia polycythemia syndrome. Raya Dickens MD [facility] * ECHO - TWIN B COMPLETE (10/10/2023 1:35 PM CDT) Anatomical Region Laterality Modality Echocardiography 10/10/2023 12:0 8 PM CDT Narrative 10/10/2023 2:59 PM CDT [id number]^RILEY^VANITA ? Study ID: [id number] ?[facility] ?[facility] ?[address] ?[place] [address] ? Echocardiogram Name: KYARA ALVAREZ Study Date: 10/10/2023 12:08 PM ? Patient Location: [facility] Gender: Female ?Patient Class: Outpatient : 2000 [...] to the left atrium. There is laminar drvry-gc-nuxs shunting across the foramen ovale. Atrioventricular valves: [...] Procedure Note Esequiel Grier MD - 10/10/2023 [id number]^MANUEL Study ID:[id number] [facility] [address] [address] Echocardiogram Name: KYARA ALVAREZ Study Date: 10/10/2023 12:08 PM Patient Location: [facility] Gender: Female Patient Class:Outpatient : 2000 Age: 22 yrs Ordering Provider: VANITA LIN Referring Provider: VANITA LIN Performed By: Doris Black Physician: Esequiel Grier MD Reason For Study: Monochorionic diamniotic twin gestation in [facility] Data: Number of fetuses: This is a [...] in to the left atrium. There is wirchexszaql-pu-qjcv shunting across the foramen ovale. Atrioventricular valves: [...] PM CDT Narrative 10/10/2023 3:00 PM CDT [id number]^RILEY^VANITA ? Study ID: [id number] ?[facility] ?[facility] ?[address] ?[place] [address] ? Echocardiogram Name: KYARA ALVAREZ Study Date: [...] to the left atrium. There is laminar ygrzs-bt-dqvq shunting across the foramen ovale. Atrioventricular valves: [...] Procedure Note Esequiel Grier MD - 10/10/2023 [id number]^RILEY^VANITA Study ID:[id number] [facility] [address] [address] Echocardiogram Name: KYARA ALVAREZ Study Date: 10/10/2023 12:34 PM Patient Location: [facility] Gender: Female Patient Class:Outpatient : 2000 Age: 22 yrs Ordering Provider: VANITA LIN Referring Provider: VANITA LIN Performed By: Doris Black Reading Physician: Esequiel Grier MD Reason For Study: Mon[facility]ionic [facility]otic [facility] Data: Number of fetuses: This is [...] in to the left atrium. There is aszozynatjda-bu-rztx shunting across the foramen ovale. Atrioventricular valves: [...] 09/27/2023 9:20 AM FOR [facility] ([facility]) ONLY: ?? Pain Team Contact information: please page the Pain Team Via [employer]. Search Pain. During daytime hours, please page the attending first. At night please page the resident first. Agustina Dinh MD [place] ANESTHESIA * (ABNORMAL) UA with Microscopic (09/26/2023 [...] 09/26/2023 6:37 PM CDT [facility] Specific [place] Urine 1.018 1.003 - 1.035 09/26/2023 6:37 [...] MD LAB - URINE ORDERABLES UR [facility] Acute Care Lab [address] [facility], [address] [place] [address], [place] * Urine Culture (09/26/2023 5:51 PM CDT) Culture No Growth XIOMARA 09/28/2023 6:20 AM CDT [facility] Urine MID-STREAM URINE SPECIMEN / Unknown Non-blood Collection / Unknown 09/26/2023 5:51 PM CDT 09/26/2023 6:04 PM CDT Socorro Danielson MD LAB - MICRO GENERAL ORDERABLES [facility] Inf. Diseases Diag. Lab [address] [facility], [address] [place] [address] * (ABNORMAL) Wet prep (09/26/2023 5:50 [...] LAB - MICRO GENERAL ORDERABLES UR LAB[facility]ATORY [facility] Acute Care Lab [address] [facility] [place] [address] * Neisseria gonorrhoea PCR (09/26/2023 5:50 PM CDT) Neisseria gonorrhoeae Negative Negative 09/27/2023 11:37 AM CDT [facility] Comment:Negative for N. gono rrhoeae rRNA by middleware systems architect mediated amplification. A negative result by middleware systems architect mediated amplification does not preclude the presence [...] [facility] Lab [address] [facility], [address] [place] [address] * Chlamydia trachomatis PCR (09/26/2023 5:50 PM CDT) Chlamydia trachomatis Negative Negative 09/27/2023 11:37 AM CDT [facility] Comment:A negative result by middleware systems architect mediated amplification does not preclude the presence [...] [facility] Inf. Diseases Diag. Lab [address] [facility], [address] [place] [address] * Extra Serum Separator Tube (SST) (09/26/2023 5:15 PM CDT) Hold Specimen [facility] 09/26/2023 6:32 PM CDT UR LABORATORY Blood STRUCTURE OF RIGHT UPPER LIMB / Unknown Venipuncture / Unknown 09/26/2023 5:15 PM CDT 09/26/2023 5:24 PM CDT Heidi Swain MD LAB - BLOOD ORDERA BLES UR LABORATORY [facility] Acute Care Lab [address] [place] [address], [address] [place] [address] * Extra Green Top ([place] Heparin) Tube (09/26/2023 5:15 PM CDT) Hold Specimen [facility] 09/26/2023 6:32 PM CDT UR LABORATORY Blood STRUCTURE OF RIGHT UPPER LIMB / Unknown Venipuncture / Unknown 09/26/2023 5:15 PM CDT 09/26/2023 5:25 PM CDT Heidi Swain MD LAB - BLOOD ORDERA BLES UR LABORATORY [facility] Acute Care Lab [address] [place] [address], [address] [place] [address], [place] * Adult Type and Screen (09/26/2023 5:15 PM CDT) ABO/RH(D) A POS 09/26/2023 4:59 PM CDT UR BLOOD BANK Antibody Screen Negative Negative 09/26/2023 4:59 PM CDT UR BLOOD BANK SPECIMEN EXPIRATION DATE [id number] 09/26/2023 4:59 PM CDT UR BLOOD BANK Blood STRUCTURE OF RIGHT UPPER LIMB / Unknown Venipuncture / Unknown 09/26/2023 5:15 PM CDT 09/26/2023 5:20 PM CDT Socorro Danielson MD LAB - BLOOD BANK TEST ORDER UR BLOOD BANK [facility] [place] Blood Components Lab [address] [facility], [address] [place] [address] * (ABNORMAL) CBC with platelets (09/26/2023 [...] MD LAB - BLOOD ORDERABLES UR LABORATORY [facility] Acute Care Lab [address] [facility], [address] [place] [address], [place] * M[facility] US Comprehensive (09/26/2023 3:21 [...] PM CDT ?Comprehensive ----- Pat. Name: ROLANDO BELLAKYARA MARX ? Study Date: ??09/26/2023 1:31pm Pat. NO: ??[id number] ?Referring ??MD: RAYA SHAH Site: ? Wind Tunnel Technician: [address] RDMS : ??2000 ?Age: ?? [...] lb 11 ? oz EFW by ?Hadlock ([id number]-[id number]-FL) EFW discordance ?13.8 ?% Head / Face / Neck Biometry: Aircraft De Icer Installer ?5.3 ? mm CM ? 2.4 ? [...] lb 13 ? oz EFW by ?Hadlock ([id number]-YV-JZ-FL) EFW discordance ?13.8 ?% Head / Face / Neck Biometry: Aircraft De Icer Installer ?6.9 ? mm CM ? 4.3 ? [...] view. RVOT view. LVOT view. 3-vessel view. 0-syvqfp-wxhnzmw view. Situs. Aortic arch view. Bicaval view. [...] view. RVOT view. LVOT view. 3-vessel view. 6-rhqpqt-ftisjut view. Situs. Aortic arch view. Bicaval view. [...] the patient (reviewing medical records/tests), in direct aeeu-tm-hhpl contact with the patient during her visit with the majority spent counseling and discussing the plan of care and documenting the visit in the electronic medical record. Please see note for details. Procedure Note Angelica Wright MD - 10/08/2023 Comprehensive ----- Pat. Name: KYARA ALVAREZ Study Date: 09/26/2023 1:31pm Pat. NO: [id number] Referring MD: RAYA SHAH Site: Wind Tunnel Technician: Christopher Street RDMS : 2000 Age: 22 [...] EFW (lb,oz) 0 lb 11oz EFW by Hadlock(KUD-GF-LO-FL) EFW discordance 13.8% Head / Face / Neck Biometry: Aircraft De Icer Installer 5.3mm CM 2.4mm Nasal bone 5.9mm Fetus 2: BIOMETRY ----- BPD 46.2mm 20w 0dHadlock OFD 62.0mm 20w 0dNicolaides HC 172.9mm 19w 6dHadlock Cerebellum tr 19.7mm 18w 6dNicolaides Nuchal fold 4.4mm AC 155.0mm 20w 5d 52%Hadlock Femur 34.9mm 21w 0dHadlock Humerus 30.9mm 20w 2dJeanty Weight Calculation: EFW 371g 59%Hadlock EFW (lb,oz) 0 lb 13oz EFW by Hadlock(TQV-EI-RL-FL) EFW discordance 13.8% Head / Face / Neck Biometry: Aircraft De Icer Installer 6.9mm CM 4.3mm Nasal bone 5.8mm Fetus 1: ANATOMY ----- The following structures appear normal: Head / Neck Cranium. Head size. Head shape.Lateral ventricles. Choroid plexus. Midline falx. Cavum septi pellucidi.Cerebellum. Cisterna magna. Parenchyma. Thalami. Vermis. Neck. Nuchal fold. Face Lips. Profile. Nose. Maxilla.Mandible. Orbits. Lens. Heart / Thorax 4-chamber view. RVOT view. LVOT view.3-vessel view. 9-tpcphq-hqnzsdd view. Situs. Aortic arch view. Bicavalview. Ductal [...] 4-chamber view. RVOT view. LVOT view.3-vessel view. 5-unemxk-zgwzojm view. Situs. Aortic arch view. Bicavalview. Ductal [...] see the patient (reviewing medical records/tests), in suwzbtafzf-aw-cmvv contact with the patient during her visit [...] of 8 mm. Vanita Lin MD [facility] US ORDERABLE S * MFM Twins US OB Complete 2/3 [...] ?2nd / 3rd Trim ----- Pat. Name: ROLANDO VILLEGAS KYARA ? Study Date: ??08/29/2023 1:33pm Pat. NO: ??[id number] ?Referring ??MD: RAYA SHAH Site: ? Wind Tunnel Technician: Carmen Zurita RDMS : ??2000 ?Age: ?? [...] ?0 lb 5 ?oz EFW by ?Hadlock (SSY-PT-LO-FL) EFW discordance ?10.2 ?% Head / Face [...] ?0 lb 5 ?oz EFW by ?Hadlock (LQM-JW-JQ-FL) EFW discordance ?10.2 ?% Head / Face [...] be visualized: Heart / Thorax ?3-vessel view. 5-kkuyof-zpenhhs view. Fetus 2: ANATOMY ----- The following structures appear normal: Head / Neck ? Cranium. Head size. Head shape. Lateral ventricles. Choroid plexus. Midline falx. Cavum septi pellucidi. Cerebellum. Cisterna magna. ? Parenchyma. Thalami. ? Neck. Nuchal fold. Face ? Lips. Profile. Nose. Maxilla. Mandible. Orbits. Lens. Heart / Thorax ?4-chamber view. RVOT view. LVOT view. 3-vessel view. 7-urflkp-fjclvew view. Situs. Aortic arch view. Bicaval view. [...] The patient is scheduled to return to [facility] in 2 weeks to assess for [...] Procedure Note Case Berrios MD - 10/08/2023 2nd / 3rd Trim ----- Pat. Name: KYARA ALVAREZ Study Date: 08/29/2023 1:33pm Pat. NO: [id number] Referring MD: RAYA SHAH Site: Wind Tunnel Technician: Carmen Zurita RDMS : 2000 Age: 22 [...] EFW (lb,oz) 0 lb 5oz EFW by Hadlock(BYY-VU-IS-FL) EFW discordance 10.2% Head / Face / Neck Biometry: CM 4.6mm Nasal bone 4.1mm Fetus 2: BIOMETRY ----- BPD 33.2mm 16w 2dHadlock OFD 42.0mm 15w 0dNicolaides HC 120.9mm 16w 0dHadlock Cerebellum tr 16.2mm 16w 1dNicolaides Nuchal fold 2.2mm AC 101.3mm 16w 1d 40%Hadlock Femur 21.6mm 16w 3dHadlock Humerus 20.8mm 16w 1dJeanty Weight Calculation: EFW 151g 32%Hadlock EFW (lb,oz) 0 lb 5oz EFW by Hadlock(VUX-LN-GK-FL) EFW discordance 10.2% Head / Face / [...] be visualized: Heart / Thorax 3-vessel view. 3-jjncny-gmppzgfqgvc. Fetus 2: ANATOMY ----- The following structures appear normal: Head / Neck Cranium. Head size. Head shape.Lateral ventricles. Choroid plexus. Midline falx. Cavum septi pellucidi.Cerebellum. Cisterna magna. Parenchyma. Thalami. Neck. Nuchal fold. Face Lips. Profile. Nose. Maxilla.Mandible. Orbits. Lens. Heart / Thorax 4-chamber view. RVOT view. LVOT view.3-vessel view. 5-ylyjib-qfsvorq view. Situs. Aortic arch view. Bicavalview. Ductal [...] The patient is scheduled to return to [facility] in 2 weeks to assess forTTTS/TAPS [...] no evidence for TTTS/TAPS. Vanita Lin MD [facility] ORDERABLE S * [employer] Non-Invasive Screening???Prequel (08/08/2023 12:45 PM CDT) See Scanned Result [employer] NON-INVASIVE SCREENING PREQUEL-Scann ed 08/14/2023 11:49 AM CDT [employer] Blood STRUCTURE OF RIGHT UPPER LIMB / Unknown Venipuncture / Unknown 08/08/2023 12:45 PM CDT 08/08/2023 12:45 PM CDT Nelsy Diaz GC LAB - BLOOD ORDERABL ES [employer] [address] [place] [address], [place] [phone] from Last 3 Months or Most Recently Relevant to Health Maintenance Advance Directives For more information, please contact: [phone] * Full Code (Latest Code Status on File) Date Activated Date Inactivated Comments 09/26/2023 4:59 PM 09/27/2023 12:16 PM All basic a nd advanced life-sustaining interventions are performed as appropriate Question Answer Comments Code status determined by: Discussion with patie nt/ legal decision maker Care Teams Estate And Trust Tax Principal Relationship Specialty Start Date End Date No Ref-Primary, Physician PCP - General 07/22/23 Vanita Lin MD [address] [facility] [address] [place] [address] Assigned OBGYN Provider 08/31/23
--- OUTSIDE RECORDS SUMMARY | 2023-11-24 07:37 | XMS_ITS | Clinical Summary ---
Author Organization [facility] Address [address] [place] [address]. [place] [address] Care Team Providers Care Package Lift Operator Name Role Phone No Ref-Primary, Physician Primary Care Provider Vanita Lin MD Unavailable [phone] Allergies No known active allergies Medications Medication [...] Date Type Department Care Team Description 11/21/2023 10:45 AM CDT Office Visit [facility] [place] [address] [place] [address] Raya Dickens MD Nashif, Sereen, MD 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) 11/21/2023 9:59 AM CDT - 11/21/2023 11:59 PM CDT Hospital Encounter [facility] [place] [address] [place] [address] Raya Dickens MD Nashif, Sereen, MD 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 Discharge Disposition: Home or Self Care 11/21/2023 Travel 11/07/2023 2:00 PM CDT Office Visit [facility] [address] [place] [address] Angelica Wright MD 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 (Primary Dx) 11/07/2023 1:01 PM CDT - 11/07/2023 11:59 PM CDT Hospital Encounter [facility] [place] [address] [place] [address] Angelica Wright MD 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 Discharge Disposition: Home or Self Care 11/07/2023 Travel 10/24/2023 2:45 PM CDT Office Visit [facility] [place] [address] [place] [address] Angelica Wright MD Nyholm, Jessica Lea, MD 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 (Primary Dx) 10/24/2023 2:10 PM CDT - 10/24/2023 11:59 PM CDT Hospital Encounter [facility] [address] [place] [address] Angelica Wright MD 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 Discharge Disposition: Home or Self Care 10/24/2023 Travel 10/10/2023 11:09 AM CDT - 10/10/2023 11:59 PM CDT Hospital Encounter [facility] [address] [phone] Vanita Lin MD Paredes, Carmen R 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 Discharge Disposition: Home or Self Care 10/10/2023 10:59 AM CDT - 10/10/2023 11:08 AM CDT Hospital Encounter [facility] [address] [place] [phone] Vanita Lin MD 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 Discharge Disposition: Home or Self Care 10/10/2023 Office Visit [facility] [address] [place] [phone] Esequiel Grier MD cardiac disease affecting , fetus 1 of multiple gestation (Primary Dx); cardiac disease affecting , fetus 2 of multiple gestation 10/10/2023 Travel 10/08/2023 12:15 PM CDT Office Visit [facility] [place] [address] [place] [phone] Vanita Lin MD Rauk, Phillip Neil, MD 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 (Primary Dx) 10/08/2023 11:26 AM CDT - 10/08/2023 11:59 PM CDT Hospital Encounter [facility] [place] [address] [place] [address] Vanita Lin MD Rauk, Phillip Neil, MD 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 Discharge Disposition: Home or Self Care 10/08/2023 Travel 09/30/2023 9:15 AM CDT Office Visit [facility] [address] [place] [address] Vanita Lin MD Rauk, Phillip Neil, MD 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 (Primary Dx) 09/30/2023 8:45 AM CDT - 09/30/2023 11:59 PM CDT Hospital Encounter [facility] [place] [address] [place] [address] Vanita Lin MD Rauk, Case Seals MD 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 Discharge Disposition: Home or Self Care 09/30/2023 Travel 09/27/2023 9:12 AM CDT Anesthesia Event [facility] [address] [place] [address], [place] [phone] Agustina iDnh MD Yang, Simon, MD 09/27/2023 9:00 AM CDT - 09/27/2023 10:15 AM CDT Surgery [facility] [address] [place] [address], [place] [phone] Heidi Swain MD [place]cl[place] cervical 09/26/2023 4:43 PM CDT - 09/28/2023 12:22 PM CDT Hospital Encounter [facility] [address] [place] [address], [place] [phone] Heidi Swain MD Cervical shortening affecting in second trimester (Primary Dx) Discharge Disposition: Home or Self Care 09/26/2023 2:45 PM CDT Office [facility] [place] [address] [place] [address] Vanita Lin MD Yamamura, Yasuko, MD 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 (Primary Dx); Cervical insufficiency during in second trimester, antepartum 09/26/2023 1:30 PM CDT Office Visit [facility] [address] [place] [phone] Lamar Griffith 09/26/2023 1:22 PM CDT - 09/26/2023 4:42 PM CDT Hospital Encounter [facility] [address] [place] [address] Vanita Lin MD Yamamura, Yasuko, MD 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 Discharge Disposition: Home or Self Care 09/26/2023 Travel 08/29/2023 2:00 PM CDT Office Visit [facility] [address] [place] [address] Vanita Lin MD Rauk, Case Seals MD 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 (Primary Dx) 08/29/2023 1:19 PM CDT - 08/29/2023 11:59 PM CDT Hospital Encounter [facility] [address] [place] [address] Vanita Lin MD Rauk, Case Seals MD 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 Discharge Disposition: Home or Self Care 08/29/2023 Travel 08/25/[address] [facility] [address] [place] [phone] Nelsy Diaz, GC Results (Expanded Carrier Screening [...] Info) Description 12/05/2023 2:[address] [facility] [place] [address] [place] [phone] Didi Daniel MD [address] [place] [address] 12/05/2023 2:45 PM CDT Office Visit [facility] [place] [address] [place] [phone] Didi Daniel MD [address] [place] [address] 12/19/2023 11:00 AM CDT Appointment [facility] [place] [address] [place] [phone] Raya Dickens MD [address] [place], [place] [address] 12/19/2023 11:30 AM CDT Office Visit [facility] [place] [address] [place] [phone] Raya Dickens MD [address] [place], [place] [address] 12/26/2023 3:[address] [facility] [place] [address] [place] [address] Raya Dickens MD [address] [place] [address] 12/26/2023 3:30 PM CDT Office Visit [facility] [place] [address] [place] [phone] Raya Dickens MD [address] [place] [address] 01/02/2024 2:[address] [facility] [place] [address] [place] [phone] Raya Dickens MD [address] [place] [address] 01/02/2024 2:45 PM CDT Office Visit [facility] [place] [address] [place] [phone] Raya Dickens MD [address] [place] [address] 01/09/2024 3:[address] [facility] [place] [address] [place] [phone] Raya Dickens MD [address] [place], [place] [address] 01/09/2024 3:30 PM CDT Office Visit [facility] [place] [address] [place] [phone] Raya Dickens MD [address] [place], [place] [address] 01/16/2024 2:15 PM INSIDE H[employer]IC[employer] Appointment [facility] [address] [place] [address] Raya Dickens MD [address] [place], [place] [phone] 01/16/2024 2:45 PM INSIDE [employer] Office [facility] [address] [place] [address] Raya Dickens MD [address] [place] [address] Health Maintenance Due Date Last [...] Risk 1-dose series) 12/16/2023 CHLAMYDIA SCREENING 09/25/2024 09/26/2023 DTAP/TDAP/TD IMMUNIZATION (4 - Td or [...] Pat. Name: KYARA ALVAREZ ? Study Date: ??11/21/2023 9:59am Pat. NO: ??[id number] ?Referring ??: RAYA SHAH Site: ? [employer]: [address] RDMS : ??2000 ?Age: ?? [...] ?2 lb 6 ?oz EFW by ?Hadlock (KON-YM-EJ-FL) EFW discordance ?9.2 ? % Head / Face / Neck Biometry: Mat Tester ?5.5 ? mm Fetus 2: BIOMETRY ----- [...] ?2 lb 10 ?oz EFW by ?Hadlock (PRK-XB-CQ-FL) EFW discordance ?9.2 ? % Fetus 1: [...] medical record, and communicating with other health acute care nurse practitioner and/or care coordination. Procedure Note Nitin Morris MD - 11/21/2023 Comp Follow Up ----- Pat. Name: KYARA ALVAREZ Study Date: 11/21/2023 9:59am Pat. NO: [id number] Referring MD: RAYA SHAH Site: [employer]: [address] RDMS : 2000 Age: 23 [...] EFW (lb,oz) 2 lb 6oz EFW by Hadlock(ABS-YW-PJ-FL) EFW discordance 9.2% Head / Face / Neck Biometry: Mat Tester 5.5mm Fetus 2: BIOMETRY ----- BPD 69.9mm 28w 1dHadlock OFD 94.3mm 27w 6dNicolaides HC 263.3mm 28w 5dHadlock AC 247.1mm 29w 0d 59%Hadlock Femur 49.7mm 26w 5dHadlock Humerus 45.2mm 26w 6dJeanty Weight Calculation: EFW 1,180g 27%Hadlock EFW (lb,oz) 2 lb 10oz EFW by Hadlock(BTW-IF-RO-FL) EFW discordance 9.2% Fetus 1: ANATOMY ----- [...] electronic medical record, andcommunicating with other health acute care nurse practitioner and/or carecoordination. IMPRESSION ----- Monochorionic diamniotic twin [...] PM CDT Narrative 10/10/2023 2:59 PM CDT [id number]^RILEY^VANITA ? Study ID: [id number] ?[facility] ?[facility] ?[address] ?[place] [address] ? Echocardiogram Name: KYARA ALVAREZ Study Date: 10/10/2023 12:08 PM ? Patient Location: [facility] Gender: Female ?Patient Class: Outpatient : 2000 [...] to the left atrium. There is laminar orejd-ln-jnde shunting across the foramen ovale. Atrioventricular valves: [...] Procedure Note Esequiel Grier MD - 10/10/2023 [id number] [facility] [id number]^MANUEL Study ID:[id number] [facility] [place] [address] Echocardiogram Name: KYARA ALVAREZ Study Date: 10/10/2023 12:08 PM Patient Location: [facility] Gender: Female Patient Class:Outpatient : 2000 Age: 22 yrs Ordering Provider: VANITA LIN Referring Provider: VANITA LNI Performed By: Doris Black Physician: Esequiel Grier [...] in to the left atrium. There is hrmkbdoprbie-fn-czxn shunting across the foramen ovale. Atrioventricular valves: [...] PM CDT Narrative 10/10/2023 3:00 PM CDT [id number] [facility] [id number]^RILEY^VANITA ? Study ID: [id number] ?[facility] ?[facility] ?[address] ?[place] [address] ? Echocardiogram Name: KYARA ALVAREZ Study Date: 10/10/2023 12:34 PM ? Patient Location: [facility] Gender: Female ?Patient Class: Outpatient : 2000 [...] to the left atrium. There is laminar daqfx-jh-utpl shunting across the foramen ovale. Atrioventricular valves: [...] Procedure Note Esequiel Grier MD - 10/10/2023 [id number] [facility] [id number]^RILEY^VANITA Study ID:[id number] [facility] [place] [address] Echocardiogram Name: KYARA ALVAREZ Study Date: 10/10/2023 12:34 PM Patient Location: [facility] Gender: Female Patient Class:Outpatient : 2000 [...] in to the left atrium. There is ttalbhzbyjwt-hk-cxwe shunting across the foramen ovale. Atrioventricular valves: [...] Medication Administration Time: 09/27/2023 9:20 AM FOR [facility] ([facility]) ONLY: ?? Pain Team Contact information: please page the Pain Team Via Plated. Search Pain. During daytime hours, please page [...] 09/26/2023 6:37 PM CDT UR LABORATORY Specific [place] Urine 1.018 1.003 - 1.035 09/26/2023 6:37 [...] MD LAB - URINE ORDERABLES UR LABORATORY [facility] Acute Care Lab [address] [facility] [facility], [address] [place] [address] * Urine Culture (09/26/2023 5:51 PM CDT) Culture No Growth XIOMARA 09/28/2023 6:20 AM CDT [facility] IDD LABORATORY Urine MID-STREAM URINE SPECIMEN / Unknown Non-blood Collection / Unknown 09/26/2023 5:51 PM CDT 09/26/2023 6:04 PM CDT Socorro Danielson MD LAB - MICRO GENERAL ORDERABLES [facility] ID[facility] LABORATORY [facility] Inf. Diseases Diag. Lab [address] [facility], [address] [place] [address] * (ABNORMAL) Wet prep (09/26/2023 [...] LAB - MICRO GENERAL ORDERABLES UR LABORATORY [facility] Lab [address] [facility] [facility], [address] [place] [address] * Neisseria gonorrhoea PCR (09/26/2023 5:50 PM CDT) Neisseria gonorrhoeae Negative Negative 09/27/2023 11:37 AM CDT [facility] IDD LABORATORY Comment:Negative for N. gono rrhoeae rRNA by computer support specialist instructor mediated amplification. A negative result by computer support specialist instructor mediated amplification does not preclude the presence of C. trachomatis infection because results are dependent on proper and adequate collection, absence of inhibitors and sufficient rRNA to be detected. Swab VAGINAL STRUCTURE / Unknown Non-blood Collection / Unknown 09/26/2023 5:50 PM CDT 09/26/2023 6:03 PM CDT Socorro Danielson MD LAB - MICRO GENERAL ORDERABLES [facility] IDD LABORATORY [facility] Inf. Diseases Diag. Lab [address] [facility], Room [place] [phone] * Chlamydia trachomatis PCR (09/26/2023 5:50 PM CDT) Pathologist [facility] Chlamydia trachomatis Negative Negative 09/27/2023 11:37 AM CDT UU IDD LABORATORY Comment:A negative result by computer support specialist instructor mediated amplification does not preclude the presence of C. trachomatis infection because results are dependent on proper and adequate collection, absence of inhibitors and sufficient rRNA to be detected. Swab VAGINAL STRUCTURE / Unknown Non-blood Collection / Unknown 09/26/2023 5:50 PM CDT 09/26/2023 6:03 PM CDT Socorro Danielson MD LAB - MICRO GENERAL ORDERABLES [facility] IDD LABORATORY [facility] Inf. Diseases Diag. Lab [address] [facility], [address] [phone] * Extra Serum Separator Tube (SST) (09/26/2023 5:15 PM CDT) Hold Specimen JIC 09/26/2023 6:32 PM CDT UR LABORATORY Blood STRUCTURE OF RIGHT UPPER LIMB / Unknown Venipuncture / Unknown 09/26/2023 5:15 PM CDT 09/26/2023 5:24 PM CDT Heidi Swain MD LAB - BLOOD ORDERA BLES UR LABORATORY [facility] Lab [address] [place] [address], Room [place] [id number] * Extra Green Top ([place] Heparin) Tube (09/26/2023 5:15 PM CDT) Hold Specimen JIC 09/26/2023 6:32 PM CDT UR LABORATORY Blood STRUCTURE OF RIGHT UPPER LIMB / Unknown Venipuncture / Unknown 09/26/2023 5:15 PM CDT 09/26/2023 5:25 PM CDT Heidi Swain MD LAB - BLOOD ORDERA BLES Performing Organization Address City/[facility]/ZIP Co de Phone Number UR LABORATORY [facility] Lab [address] [place] [address], [address] * Adult Type and Screen (09/26/2023 5:15 PM CDT) ABO/RH(D) A POS 09/26/2023 4:59 PM CDT UR BLOOD BANK Antibody Screen Negative Negative 09/26/2023 4:59 PM CDT UR BLOOD BANK SPECIMEN EXPIRATION DATE [id number] 09/26/2023 4:59 PM CDT UR BLOOD BANK Blood STRUCTURE OF RIGHT UPPER LIMB / Unknown Venipuncture / Unknown 09/26/2023 5:15 PM CDT 09/26/2023 5:20 PM CDT Socorro Danielson MD LAB - BLOOD BANK TEST ORDER Performing Organization Address City/[facility]/ZIP Co de Phone Number UR BLOOD BANK [facility] Blood Components Lab [address] [place] [address], Room [address] [phone], [place] * (ABNORMAL) CBC with platelets (09/26/2023 5:15 [...] MD LAB - BLOOD ORDERABLES UR LABORATORY [facility] [address] [place] [address], [address] [place] [address], [facility] * MFM Twins [place] Comprehensive [...] ? Study Date: ??09/26/2023 1:31pm Pat. NO: ??[id number] ?Referring ??: RAYA SHAH Site: ? [employer]: [address] RDMS : ??2000 ?Age: ?? [...] lb 11 ? oz EFW by ?Hadlock (NRJ-LM-IR-FL) EFW discordance ?13.8 ?% Head / Face / Neck Biometry: Mat Tester ?5.3 ? mm CM ? 2.4 ? [...] lb 13 ? oz EFW by ?Hadlock (FUW-MI-EN-FL) EFW discordance ?13.8 ?% Head / Face / Neck Biometry: Mat Tester ?6.9 ? mm CM ? 4.3 ? [...] view. RVOT view. LVOT view. 3-vessel view. 7-sayvrd-rhuobiy view. Situs. Aortic arch view. Bicaval view. [...] view. RVOT view. LVOT view. 3-vessel view. 6-klbysw-bgfaehj view. Situs. Aortic arch view. Bicaval view. [...] the patient (reviewing medical records/tests), in direct yqmq-zy-iplj contact with the patient during her visit with the majority spent counseling and discussing the plan of care and documenting the visit in the electronic medical record. Please see note for details. Procedure Note Angelica Wright MD - 10/08/2023 Comprehensive ----- Pat. Name: KYARA ALVAREZ Study Date: 09/26/2023 1:31pm Pat. NO: [id number] Referring MD: RAYA SHAH Site: [employer]: [address] RDMS : 2000 Age: 22 [...] EFW (lb,oz) 0 lb 11oz EFW by Hadlock(YSA-XU-HP-FL) EFW discordance 13.8% Head / Face / Neck Biometry: Mat Tester 5.3mm CM 2.4mm Nasal bone 5.9mm Fetus 2: BIOMETRY ----- BPD 46.2mm 20w 0dHadlock OFD 62.0mm 20w 0dNicolaides HC 172.9mm 19w 6dHadlock Cerebellum tr 19.7mm 18w 6dNicolaides Nuchal fold 4.4mm AC 155.0mm 20w 5d 52%Hadlock Femur 34.9mm 21w 0dHadlock Humerus 30.9mm 20w 2dJeanty Weight Calculation: EFW 371g 59%Hadlock EFW (lb,oz) 0 lb 13oz EFW by Hadlock(JOB-TL-PZ-FL) EFW discordance 13.8% Head / Face / Neck Biometry: Mat Tester 6.9mm CM 4.3mm Nasal bone 5.8mm Fetus 1: ANATOMY ----- The following structures appear normal: Head / Neck Cranium. Head size. Head shape.Lateral ventricles. Choroid plexus. Midline falx. Cavum septi pellucidi.Cerebellum. Cisterna magna. Parenchyma. Thalami. Vermis. Neck. Nuchal fold. Face Lips. Profile. Nose. Maxilla.Mandible. Orbits. Lens. Heart / Thorax 4-chamber view. RVOT view. LVOT view.3-vessel view. 2-gyfeyi-aoubhbc view. Situs. Aortic arch view. Bicavalview. Ductal [...] 4-chamber view. RVOT view. LVOT view.3-vessel view. 8-bdlirl-nuiamzp view. Situs. Aortic arch view. Bicavalview. Ductal [...] see the patient (reviewing medical records/tests), in ttknkeggdk-fw-dirj contact with the patient during her visit [...] length of 8 mm. Vanita Lin MD [facility] US ORDERABLE S * [facility] Twins US OB Complete /3 Tri (08/29/2023 2:47 PM CDT) Anatomical Region [...] ? / Trim ----- Pat. Name: KYARA ALVAREZ ? Study Date: ??08/29/2023 1:33pm Pat. NO: ??[id number] ?Referring ??MD: RAYA SHAH Site: ? [employer]: [place] RDMS : ??2000 ?Age: ?? [...] ?0 lb 5 ?oz EFW by ?Hadlock (HIF-FH-ZU-FL) EFW discordance ?10.2 ?% Head / Face [...] ?0 lb 5 ?oz EFW by ?Hadlock (IVH-OG-YH-FL) EFW discordance ?10.2 ?% Head / Face [...] be visualized: Heart / Thorax ?3-vessel view. 4-nmmcpg-tlgpkkm view. Fetus 2: ANATOMY ----- The following structures appear normal: Head / Neck ? Cranium. Head size. Head shape. Lateral ventricles. Choroid plexus. Midline falx. Cavum septi pellucidi. Cerebellum. Cisterna magna. ? Parenchyma. Thalami. ? Neck. Nuchal fold. Face ? Lips. Profile. Nose. Maxilla. Mandible. Orbits. Lens. Heart / Thorax ?4-chamber view. RVOT view. LVOT view. 3-vessel view. 5-nekpni-qmbvjjq view. Situs. Aortic arch view. Bicaval view. [...] The patient is scheduled to return to [facility] in 2 weeks to assess for [...] ALVAREZ Study Date: 08/29/2023 1:33pm Pat. NO: [id number] Referring MD: RAYA SHAH Site: [employer]: [employer] [place] RDMS : 2000 Age: 22 [...] EFW (lb,oz) 0 lb 5oz EFW by Hadlock(JJX-WM-UF-FL) EFW discordance 10.2% Head / Face / Neck Biometry: CM 4.6mm Nasal bone 4.1mm Fetus 2: BIOMETRY ----- BPD 33.2mm 16w 2dHadlock OFD 42.0mm 15w 0dNicolaides HC 120.9mm 16w 0dHadlock Cerebellum tr 16.2mm 16w 1dNicolaides Nuchal fold 2.2mm AC 101.3mm 16w 1d 40%Hadlock Femur 21.6mm 16w 3dHadlock Humerus 20.8mm 16w 1dJeanty Weight Calculation: EFW 151g 32%Hadlock EFW (lb,oz) 0 lb 5oz EFW by Hadlock(BMV-IA-XP-FL) EFW discordance 10.2% Head / Face / [...] be visualized: Heart / Thorax 3-vessel view. 3-wjdxqw-pmmecutzlya. Fetus 2: ANATOMY ----- The following structures appear normal: Head / Neck Cranium. Head size. Head shape.Lateral ventricles. Choroid plexus. Midline falx. Cavum septi pellucidi.Cerebellum. Cisterna magna. Parenchyma. Thalami. Neck. Nuchal fold. Face Lips. Profile. Nose. Maxilla.Mandible. Orbits. Lens. Heart / Thorax 4-chamber view. RVOT view. LVOT view.3-vessel view. 9-dwdxhz-txikjmq view. Situs. Aortic arch view. Bicavalview. Ductal [...] The patient is scheduled to return to [facility] in 2 weeks to assess forTTTS/TAPS [...] no evidence for TTTS/TAPS. Vanita Lin MD [facility] US ORDERABLE S * [facility] Non-Invasive Screening???Prequel (08/08/2023 12:45 PM CDT) See Scanned Result [facility] NON-INVASIVE SCREENING PREQUEL-Scann ed 08/14/2023 11:49 AM CDT [facility] Blood STRUCTURE OF RIGHT UPPER LIMB / Unknown Venipuncture / Unknown 08/08/2023 12:45 PM CDT 08/08/2023 12:45 PM CDT Nelsy Diaz LAB - BLOOD ORDERABL ES [facility] [address] [phone] from Last 3 Months or Most Recently Relevant to Health Maintenance Advance Directives For more information, please contact: [phone] * Full Code (Latest Code Status on File) Date Activated Date Inactivated Comments 09/26/2023 4:59 PM 09/27/2023 12:16 PM All basic a nd advanced life-sustaining interventions are performed as appropriate Question Answer Comments Code status determined by: Discussion with patie nt/ legal decision maker Care Teams Package Lift Operator Relationship Specialty Start Date End Date No Ref-Primary, Physician PCP - General 07/22/23 Vanita Lin MD [address] [address] Assigned OBGYN Provider 08/31/23
--- OUTSIDE RECORDS SUMMARY | 2023-11-24 07:38 | XMS_ITS | Encounter Summary ---
Author Organization [place] Address [address] [place] [address]. 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 Procedures Echo (TTE) Complete Vanita Lin MD [address] [place] [address] [place] [address] [facility] [address] [place] [phone] Referral ID Status Reason Start Date Expiration Date Visits Re quested Visits Authorized [id number] Closed 08/08/2023 08/07/2024 1 1 Reason for Visit * (Routine) - Closed Specialty Diagnoses / Procedures Referred By Contbeata t Referred To Contact Cardiology 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 Procedures Echo (TTE) Vanita Tolbert MD [address] [place] [address] [place] [address] [facility] [address] [place] [phone] Referral ID Status Reason Start Date Expiration Date Visits Re quested Visits Authorized [id number] Closed 08/08/2023 08/07/2024 1 1 Encounter Details Date Type Department Care Team (Latest Contact Info) Description 10/10/2023 10:59 AM CDT - 10/10/2023 11:08 AM CDT Hospital Encounter [facility] [address] [place] [address] Vanita Lin MD [address] [facility] [address] [place] [address] Monochorionic diamniotic twin gestation in [...] Info) Description 12/05/2023 2:15 PM CDT Appointment [facility] M[facility] [place] [address] [facility] [address] [place] [address] Didi Daniel MD [address] [facility] [address] [place] [address] 12/05/2023 2:45 PM CDT Office Visit [facility] Maternal Medicine [place] [address] [facility] [address] [place] [phone] Didi Daniel MD [address] [facility] [address] [place] [address] 12/19/2023 11:00 AM CDT Appointment [facility] Maternal Medicine [place] [address] [facility] [address] [place] [phone] Tomasa Dickens MD [address] [place] [address] [place] [address] 12/19/2023 11:30 AM CDT Office Visit [facility] Maternal Medicine [place] [address] [facility] [address] [place] [phone] Tomasa Dickens MD [address] [place] [address] [place] [address] 12/26/2023 3:00 PM CDT Appointment [facility] [place] [address] [facility] [address] [place] [phone] Tomasa Dickens MD [address] [place] [address] [place] [address] 12/26/2023 3:30 PM CDT Office Visit [facility] Maternal Medicine [place] [address] [facility] [address] [place] [phone] Tomasa Dickens MD [address] [place] [address] 01/02/2024 2:15 PM CDT Appointment [facility] Maternal Medicine [place] [address] [place] [phone] Tomasa Dickens MD [address] [place] [address] [place] [address] 01/02/2024 2:45 PM CDT Office Visit [facility] Maternal Medicine [place] [address] [place] [phone] Tomasa Dickens MD [address] [place] [address] 01/09/2024 3:00 PM CDT Appointment [facility] Maternal Medicine [place] [address] [facility] [address] [place] [phone] Tomasa Dickens MD [address] [place] [address] 01/09/2024 3:30 PM CDT Office Visit [facility] Maternal Medicine [place] [address] [place] [phone] Tomasa Dickens MD [address] [place] [address] 01/16/2024 2:15 PM OUTSIDE CONTRACTOR SALES Appointment [facility] Maternal Medicine [place] [address] [facility] [address] [place] [phone] Tomasa Dickens MD [address] [place] [address] 01/16/2024 2:45 PM OUTSIDE CONTRACTOR SALES Office Visit [facility] Maternal Medicine [place] [address] [place] [address] Tomasa Dickens MD [address] [place] [address] [place] [address] documented as of this encounter Procedures Procedure Name Priority Date/Time Associated Diagnosis Comments ECHO COMPLETE Routine 10/10/2023 1 :35 PM CDT 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 Study ID: [id number] ?[facility] ?[facility] ?[address] ?[place] [address] ? Echocardiogram Name: KRISTYN MISHRA Study Date: 10/10/2023 12:34 PM ? Patient Location: [facility] Gender: Female ?Patient Class: Outpatient [...] to the left atrium. There is laminar yrlcg-kr-lznq shunting across the foramen ovale. Atrioventricular valves: [...] Procedure Note Esequiel Grier MD - 10/10/2023 [id number] [facility] [id number]^MANUEL Study ID:[id number] [facility] [address] [address] Echocardiogram Name: KRISTYN MISHRA Study Date: 10/10/2023 12:34 PM Patient Location: [facility] Gender: Female Patient Class:Outpatient : [id number] Age: 22 yrs Ordering Provider: VANITA LIN Referring Provider: VANITA LIN Performed By: Doris Black Physician: Esequiel Grier MD Reason For Study: Monochorionic diamniotic [facility] Data: Number of fetuses: This is a [...] in to the left atrium. There is bqzjkfnmvviz-jq-hyjw shunting across the foramen ovale. 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
--- OUTSIDE RECORDS SUMMARY | 2023-11-24 07:38 | XMS_ITS | Encounter Summary ---
Author Organization [place] Address [address] [facility] [place] [address] Care Team Providers Care Electrician Sound Name Role Phone No Ref-Primary, Physician Primary Care Provider Mica Aguilar MD Unavailable [phone] Reason for Visit * Reason Comments Ultrasound RL2-TTTS check, Twin A and B: Elevated UAR, Twin A: Mild poly Encounter Details Date Type Department Care Team (Latest Contact Info) Description 10/08/2023 12:15 PM CDT Office Visit [facility] M[facility] Medicine Center [place] [address] [facility] [address] [place] [address] Mica Aguilar MD [address] [place] [address] Case Berrios MD [address] [place] [address] [place] [address] Monochorionic diamniotic twin gestation in [...] for details of today's US at the [facility]. Case Berrios MD Maternal- Medicine documented in this encounter Nursing Notes * Blank Juarez RN - 10/08/2023 12:15 PM CDT Patient presents to [facility] for RL2/TTTS check at 22w1d due to Twin A and B: Elevated UAR, Twin A: Mildpoly. Positive movement x2. Denies LOF, vaginal bleeding or cramping/contractions. Spoke withpt via site interpreter. SBAR given to Robert FERNANDO, see their note in Epic. documented in this encounter Plan of Treatment Upcoming Encounters Date Type Department Care Team (Late st Contact Info) Description 12/05/2023 2:15 PM CDT Appointment [facility] Maternal Medicine [place] [address] [place] [phone] Didi Daniel MD [address] [facility] [address] [place] [address] 12/05/2023 2:45 PM CDT Office Visit [facility] [address] [facility] [address] [place] [phone] Didi Daniel MD [address] [facility] [address] [place] [address] 12/19/2023 11:00 AM CDT Appointment [facility] Maternal Medicine [place] [address] [place] [phone] Tomasa Dickens MD [address] [place] [address] [place] [address] 12/19/2023 11:30 AM CDT Office Visit [facility] Maternal Medicine [place] [address] [place] [phone] Tomasa Dickens MD [address] [place] [address] [place] [address] 12/26/2023 3:00 PM CDT Appointment [facility] Medicine [place] [address] [place] [phone] Tomasa Dickens MD [address] [address] [place] [address] 12/26/2023 3:30 PM CDT Office Visit [facility] Maternal Medicine [place] [address] [place] [phone] Tomasa Dickens MD [address] [place] [address] [place] [address] 01/02/2024 2:15 PM CDT Appointment [facility] M[facility] Medicine [place] [address] [place] [phone] Tomasa Dickens MD [address] [place] [address] [place] [address] 01/02/2024 2:45 PM CDT Office Visit [facility] Maternal Medicine [place] [address] [place] [phone] Tomasa Dickens MD [address] [place] [address] [place] [address] 01/09/2024 3:00 PM CDT Appointment [facility] Medicine [place] [address] [facility] [address] [place] [phone] Tomasa Dickens MD [address] [place] [address] [place] [address] 01/09/2024 3:30 PM CDT Office Visit [facility] [place] [address] [facility] [address] [place] [phone] Tomasa Dickens MD [address] [place] [place], [place] [address] 01/16/2024 2:15 PM LABORER DRYING DEPARTMENT Appointment [facility] [place] [address] [facility] [address] [place] [phone] Tomasa Dickens MD [address] [place] [address] [place] [address] 01/16/2024 2:45 PM LABORER DRYING DEPARTMENT Office Visit [facility] Medicine [place] [address] [facility] [address] [place] [phone] Tomasa Dickens MD [address] [place] [address] [place], [place] [address] documented as of this encounter Visit Diagnoses Diagnosis 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- Primary documented in this encounter Care Teams Electrician Sound Relationship Specialty Start Date End Date No Ref-Primary, Physician PCP - General 07/22/23 Mica Aguilar MD [address] [address] Assigned OBGYN Provider 08/31/23 documented as of this encounter
--- OUTSIDE RECORDS SUMMARY | 2023-11-24 07:38 | XMS_ITS | Encounter Summary ---
Author Organization [place] Address [address] [facility] [place] [address] Care Team Providers Care Car Wash Attendant Name Role Phone No Ref-Primary, Physician Primary Care Provider Mica Aguilar MD Unavailable [phone] Reason for Referral * Diagnostic Imaging Ultrasound (Routine) - Pending Review Specialty Diagnoses / Procedures Referred By Contac t Referred To Contact Radiology. 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 Procedures MFM Twins US Comprehensive F/U Case Berrios MD [address] [place] [address] Referral ID Status Reason Start Date Expiration Date V isits Requested Visits Authorized [id number] Pending Review 09/30/2023 09/29/2024 1 1 Reason for Visit * Reason Comments Ultrasound RL2/UAR/MCA-TTTS marivel ck-mono/di twins Encounter Details Date Type Department Care Team (Latest Contact Info) Description 09/30/2023 9:15 AM CDT Office Visit [facility] M[facility] Medicine Center [place] [address] [facility] [address] [place] [phone] Mica Aguilar MD [address] [place], [place] [address] Case Berrios MD [address] [place] [address] [place], [place] [address] 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 [...] for details of today's US at the [facility]. Case Berrios MD Maternal- Medicine documented in this encounter Nursing Notes * Eboni Spencer RN - 09/30/2023 9:15 AM CDT metal tank builder used for [facility] visit via IPAD ID#[id number] documented in this encounter Plan of Treatment Upcoming Encounters Date Type Department Care Team (Late st Contact Info) Description 12/05/2023 2:15 PM CDT Appointment [facility] [place] [address] [place] [address] Didi Daniel MD 420 [facility] [address] [place] [address] 12/05/2023 2:45 PM CDT Office Visit [facility] [place] [address] [place] [phone] Didi Daniel MD [address] [facility] [address] [place] [address] 12/19/2023 11:00 AM CDT Appointment [facility] Maternal Medicine [place] [address] [place] [phone] Raya Dickens MD [address] [place], [place] [address] 12/19/2023 11:30 AM CDT Office Visit [facility] Maternal Medicine [place] [address] [place] [phone] Raya Dickens MD [address] [place], [place] [address] 12/26/2023 3:00 PM CDT Appointment [facility] Maternal Medicine [place] [address] [place] [phone] Raya Dickens MD [address] [place] [address] 12/26/2023 3:30 PM CDT Office Visit [facility] Maternal Medicine Center [place] [address] [place] [phone] Raya Dickens MD [address] [place], [place] [address] 01/02/2024 2:15 PM CDT Appointment [facility] Maternal Medicine [place] [address] [place] [phone] Raya Dickens MD [address] [place] [address] 01/02/2024 2:45 PM CDT Office Visit [facility] M[facility] Medicine Center [place] [address] [place] [address] Raya Dickens MD [address] [place] [address] 01/09/2024 3:00 PM CDT Appointment [facility] Maternal Medicine [place] [address] [place] [phone] Raya Dickens MD [address] [place] [address] 01/09/2024 3:30 PM CDT Office Visit [facility] Maternal Medicine [place] [address] [place] [phone] Raya Dickens MD [address] [place] [address] 01/16/2024 2:15 PM TRAINING COORDINATOR Appointment [facility] Maternal Medicine [place] [address] [place] [phone] Raya Dickens MD [address] [place] [address] 01/16/2024 2:45 PM TRAINING COORDINATOR Office Visit [facility] M[facility] Medicine Center [place] [address] [place] [phone] Raya Dickens MD [address] [place] [address] documented as of this encounter Results * [...] ? Study Date: ??10/24/2023 2:10pm Pat. NO: ??[id number] ?Referring ??MD: RAYA SHAH Site: ? Lumber Stacker: Sindhu Maurer RDMS : ??2000 ?Age: ?? [...] ?1 lb 5 ?oz EFW by ?Hadlock ([id number]-FL) EFW discordance ?10.4 ?% Head / Face / Neck Biometry: Certified Surgical Tech/First Assistant ?6.1 ? mm CM ? 6.2 ? [...] ?1 lb 8 ?oz EFW by ?Hadlock ([id number]) EFW discordance ?10.4 ?% Head / Face / Neck Biometry: Certified Surgical Tech/First Assistant ?8.4 ? mm CM ? 6.3 ? mm Fetus 1: ANATOMY ----- The following structures appear normal: Head / Neck ? Cranium. Head size. Head shape. Lateral ventricles. Midline falx. Cavum septi pellucidi. Cerebellum. Cisterna magna. Thalami. Face ? Lips. Profile. Nose. Heart / Thorax ?4-chamber view. RVOT view. LVOT view. 6-oviyys-bpfidah view. ? Diaphragm. Abdomen ? Stomach. Kidneys. [...] ? Lips. Profile. Nose. Heart / Thorax ?9-jtfkyd-ebryokk view. sex: female. Fetus 1: DOPPLER ----- [...] MISHRA Study Date: 10/24/2023 2:10pm Pat. NO: [id number] Referring MD: RAYA SHAH Site: Lumber Stacker: Sindhu Maurer RDMS : 2000 Age: 23 [...] Assigned dating based on ultrasound (GA), selected on 24w + 3 d 02/10/2024 Fetus 1: [...] EFW (lb,oz) 1 lb 5oz EFW by Hadlock([id number]-FL) EFW discordance 10.4% Head / Face / Neck Biometry: Certified Surgical Tech/First Assistant 6.1mm CM 6.2mm Fetus 2: BIOMETRY ----- BPD 55.7mm 23w 0dHadlock OFD 78.1mm 23w 5dNicolaides HC 215.2mm 23w 4dHadlock Cerebellum tr 27.6mm 24w 6dNicolaides AC 200.6mm 24w 5d 50%Hadlock Femur 42.9mm 24w 0dHadlock Weight Calculation: EFW 677g 33%Hadlock EFW (lb,oz) 1 lb 8oz EFW by Hadlock(KQV-WE-TI-FL) EFW discordance 10.4% Head / Face / Neck Biometry: Certified Surgical Tech/First Assistant 8.4mm CM 6.3mm Fetus 1: ANATOMY ----- The following structures appear normal: Head / Neck Cranium. Head size. Head shape.Lateral ventricles. Midline falx. Cavum septi pellucidi. Cerebellum.Cisterna magna. Thalami. Face Lips. Profile. Nose. Heart / Thorax 4-chamber view. RVOT view. LVOT view.9-eyapii-zrtoorg view. Diaphragm. Abdomen Stomach. Kidneys. Bladder. The [...] Face Lips. Profile. Nose. Heart / Thorax 0-ykvanb-pmtwdnr view. sex: female. Fetus 1: DOPPLER ----- [...] twin anemia polycythemia syndrome. Case Berrios MD [facility] US ORDERABL ES documented in this encounter Visit Diagnoses Diagnosis 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- Primary 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 documented in this encounter Care Teams Car Wash Attendant Relationship Specialty Start Date End Date No Ref-Primary, Physician PCP - General 07/22/23 Mica Aguilar MD [address] [place] [address] Assigned OBGYN Provider 08/31/23 documented as of this encounter
--- OUTSIDE RECORDS SUMMARY | 2023-11-24 07:38 | XMS_ITS | Encounter Summary ---
Author Organization [place] Address [address] [facility] [place] [address] Care Team Providers Care Rn Renal Name Role Phone No Ref-Primary, Physician Primary Care Provider Mica Aguilar MD Unavailable [phone] Encounter Details Date Type Department Care [...] Info) Description 12/05/2023 2:15 PM CDT Appointment [facility] Maternal Medicine Center [place] [address] [facility] [address] [place] [address] Didi Daniel MD [address] [facility] [address] [place] [address] 12/05/2023 2:45 PM CDT Office Visit [facility] Maternal Medicine Center [place] [address] [place] [phone] Didi Daniel MD [address] [facility] [address] [place] [address] 12/19/2023 11:00 AM CDT Appointment [facility] Maternal Medicine [place] [address] [place] [phone] Tomasa Dickens MD [address] [place] [address] 12/19/2023 11:30 AM CDT Office Visit [facility] Maternal Medicine [place] [address] [place] [phone] Tomasa Dickens MD [address] [place] [address] 12/26/2023 3:00 PM CDT Appointment [facility] Maternal Medicine [place] [address] [place] [phone] Tomasa Dickens MD [address] [place] [address] 12/26/2023 3:30 PM CDT Office Visit [facility] Maternal Medicine Center [place] [address] [place] [phone] Tomasa Dickens MD [address] [place] [address] 01/02/2024 2:15 PM CDT Appointment [facility] Maternal Medicine [place] [address] [place] [phone] Tomasa Dickens MD [address] [place] [address] 01/02/2024 2:45 PM CDT Office Visit [facility] Maternal Medicine Center [place] [address] [place] [phone] Tomasa Dickens MD [address] [place] [address] 01/09/2024 3:00 PM CDT Appointment [facility] Maternal Medicine [place] [address] [place] [phone] Tomasa Dickens MD [address] [place] [address] 01/09/2024 3:30 PM CDT Office Visit [facility] Maternal Medicine [place] [address] [place] [phone] Tomasa Dickens MD [address] [place] [address] 01/16/2024 2:15 PM METAL BUMPER Appointment [facility] Maternal Medicine [place] [address] [place] [phone] Tomasa Dickens MD [address] [place] [address] 01/16/2024 2:45 PM METAL BUMPER Office Visit [facility] Maternal Medicine [place] [address] [place] [phone] Tomasa Dickens MD [address] [place], [place] [address] documented as of this encounter Visit Diagnoses Not on filedocumented in this encounter Care Teams Rn Renal Relationship Specialty Start Date End Date No Ref-Primary, Physician PCP - General 07/22/23 Mica Aguilar MD [address] [facility] [address] [place], [place] [phone] Assigned OBGYN Provider 08/31/23 documented as of this encounter
--- OUTSIDE RECORDS SUMMARY | 2023-11-24 07:38 | XMS_ITS | Encounter Summary ---
Author Organization [facility] Address [address] [facility] [place] [address] Care Team Providers Care Manufacturing Machine Operator Name Role Phone No Ref-Primary, Physician Primary Care Provider Mica Aguilar MD Unavailable [phone] Encounter Details Date Type Department Care [...] Info) Description 12/05/2023 2:15 PM CDT Appointment [facility] [place] [address] [facility] [address] [place] [address] Didi Daniel MD [address] [facility] [address] [place] [address] 12/05/2023 2:45 PM CDT Office Visit [facility] [place] [address] [place] [phone] Didi Daniel MD [address] [facility] [address] [place] [address] 12/19/2023 11:00 AM CDT Appointment [facility] Maternal Medicine [place] [address] [place] [phone] Tomasa Dickens MD [address] [place] [address] [place] [address] 12/19/2023 11:30 AM CDT Office Visit [facility] Medicine [place] [address] [place] [phone] Tomasa Dickens MD [address] [place] [address] [place] [address] 12/26/2023 3:00 PM CDT Appointment [facility] M[facility] Medicine [place] [address] [place] [phone] Tomasa Dickens MD [address] [place] [address] [place] [address] 12/26/2023 3:30 PM CDT Office Visit [facility] [place] [address] [place] [phone] Tomasa Dickens MD [address] [place] [address] [place] [address] 01/02/2024 2:15 PM CDT Appointment [facility] M[facility] Medicine [place] [address] [place] [phone] Tomasa Dickens MD [address] [place] [address] [place] [address] 01/02/2024 2:45 PM CDT Office Visit [facility] [place] [address] [place] [phone] Tomasa Dickens MD [address] [place] [address] [place] [address] 01/09/2024 3:00 PM CDT Appointment [facility] Medicine [place] [address] [place] [phone] Tomasa Dickens MD [address] [place] [address] [place] [address] 01/09/2024 3:30 PM CDT Office Visit [facility] M[facility] Medicine [place] [address] [place] [phone] Tomasa Dickens MD [address] [place] [address] [place] [address] 01/16/2024 2:15 PM TRAUMA NURSE Appointment [facility]aternal Medicine [place] [address] [place] [phone] Tomasa Dickens MD [address] [place] [address] [place] [address] 01/16/2024 2:45 PM TRAUMA NURSE Office Visit [facility] Maternal Medicine [place] [address] [place] [phone] Tomasa Dickens MD [address] [place] [address] [place], [place] [address] documented as of this encounter Visit Diagnoses Not on filedocumented in this encounter Care Teams Manufacturing Machine Operator Relationship Specialty Start Date End Date No Ref-Primary, Physician PCP - General 07/22/23 Mica Aguilar MD [address] [facility] [address] [place], [place] [address] Assigned OBGYN Provider 08/31/23 documented as of this encounter
--- OUTSIDE RECORDS SUMMARY | 2023-11-24 07:38 | XMS_ITS | Encounter Summary ---
Author Organization [facility] Address [address] [place] [address]. [place] [address] Care Team Providers Care Casing Crew Pusher Name Role Phone No Ref-Primary, Physician Primary Care Provider Mica Aguilar MD Unavailable [phone] Reason for Referral * Diagnostic Imaging Ultrasound (Routine) - Pending Review Specialty Diagnoses / Procedures Referred By Contac t Referred To Contact Radiology. 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 Procedures MFM Twins Analisa F/U Case Berrios MD [address] [place] [address] Referral ID Status Reason Start Date Expiration Date V isits Requested Visits Authorized [id number] Pending Review 09/30/2023 09/29/2024 1 1 Reason for Visit * Diagnostic Imaging Ultrasound (Routine) - Pending Review Specialty Diagnoses / Procedures Referred By Contac t Referred To Contact Radiology. 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 Procedures MFM Twins Analisa F/U Case Berrios MD [address] [place] [address] [place] [address] Referral ID Status Reason Start Date Expiration Date V isits Requested Visits Authorized [id number] Pending Review 09/30/2023 09/29/2024 1 1 Encounter Details Date Type Department Care Team (Latest Contact Info) Description 10/24/2023 2:10 PM CDT - 10/24/2023 11:59 PM CDT Hospital Encounter [facility] Maternal Medicine [facility] [address] [facility] [address] [place] [address] Angelica Wright MD [address] [place] [address] 400 [place] [address] Monochorionic diamniotic twin gestation in [...] Info) Description 12/05/2023 2:15 PM CDT Appointment [facility] [address] [facility] [address] [place] [address] Didi Daniel MD 420 [facility] [address] [place], [place] [address] 12/05/2023 2:45 PM CDT [facility] Visit [facility] [place] [address] [place] [phone] Didi Daniel MD [address] [facility] [address] [place] [address] 12/19/2023 11:[address] [facility] Maternal Medicine [place] [address] [place] [phone] Raya Dickens MD [address] [place] [address] [place], [place] [address] 12/19/2023 11:30 AM CDT Office Visit [facility] Maternal Medicine [place] [address] [place] [phone] Raya Dickens MD [address] [place] [address] [place], [place] [address] 12/26/2023 3:[address] [facility] Maternal Medicine [place] [address] [place] [phone] Raya Dickens MD [address] [place] [address] [place] [address] 12/26/2023 3:30 PM CDT Office Visit [facility] Medicine Center [place] [address] [place] [phone] Raya Dickens MD [address] [place] [address] [place], [place] [address] 01/02/2024 2:[address] [facility] Maternal Medicine [place] [address] [place] [phone] Raya Dickens MD [address] [place] [address] [place] [address] 01/02/2024 2:45 PM CDT Office Visit [facility] Medicine [facility] [place] [address] [place] [address] Raya Dickens MD [address] [place] [address] [place] [address] 01/09/2024 3:[address] [facility] Maternal Medicine [place] [address] [place] [phone] Raya Dickens MD [address] [place] [address] [place] [address] 01/09/2024 3:30 PM CDT Office Visit [facility] Maternal Medicine [place] [address] [place] [phone] Raya Dickens MD [address] [place] [address] [place] [address] 01/16/2024 2:15 PM ACCOUNT STRATEGIST Appointment [facility] Maternal Medicine [place] [address] [place] [phone] Raya Dickens MD [address] [place] [address] [place] [address] 01/16/2024 2:45 PM ACCOUNT STRATEGIST Office Visit [facility] Maternal Medicine [place] [address] [place] [phone] Raya Dickens MD [address] [place] [address] [place] [address] documented as of this encounter Procedures Procedure [...] Follow Up ----- Pat. Name: ROLANDO VILLEGAS KRISTYN ? Study Date: ??10/24/2023 2:10pm Pat. NO: ??[id number] ?Referring ??MD: RAYA SHAH Site: ? Geriatric Personal Care Aide: Sindhu Maurer RDMS : ??2000 ?Age: ?? [...] ?1 lb 5 ?oz EFW by ?Hadlock (HVC-EX-AV-FL) EFW discordance ?10.4 ?% Head / Face / Neck Biometry: Crate Icer ?6.1 ? mm CM ? 6.2 ? [...] ?1 lb 8 ?oz EFW by ?Hadlock (HFH-NC-MG-FL) EFW discordance ?10.4 ?% Head / Face / Neck Biometry: Crate Icer ?8.4 ? mm CM ? 6.3 ? mm Fetus 1: ANATOMY ----- The following structures appear normal: Head / Neck ? Cranium. Head size. Head shape. Lateral ventricles. Midline falx. Cavum septi pellucidi. Cerebellum. Cisterna magna. Thalami. Face ? Lips. Profile. Nose. Heart / Thorax ?4-chamber view. RVOT view. LVOT view. 9-jpuhgg-auifvvg view. ? Diaphragm. Abdomen ? Stomach. Kidneys. [...] ? Lips. Profile. Nose. Heart / Thorax ?2-ppfsqk-bmocnab view. sex: female. Fetus 1: DOPPLER ----- [...] MISHRA Study Date: 10/24/2023 2:10pm Pat. NO: [id number] Referring MD: RAYA SHAH Site: Geriatric Personal Care Aide: Sindhu Maurer RDMS : 2000 Age: 23 [...] EFW (lb,oz) 1 lb 5oz EFW by Hadlock(GIA-MR-SD-FL) EFW discordance 10.4% Head / Face / Neck Biometry: Crate Icer 6.1mm CM 6.2mm Fetus 2: BIOMETRY ----- BPD 55.7mm 23w 0dHadlock OFD 78.1mm 23w 5dNicolaides HC 215.2mm 23w 4dHadlock Cerebellum tr 27.6mm 24w 6dNicolaides AC 200.6mm 24w 5d 50%Hadlock Femur 42.9mm 24w 0dHadlock Weight Calculation: EFW 677g 33%Hadlock EFW (lb,oz) 1 lb 8oz EFW by Hadlock(TXK-YG-SZ-FL) EFW discordance 10.4% Head / Face / Neck Biometry: Crate Icer 8.4mm CM 6.3mm Fetus 1: ANATOMY ----- The following structures appear normal: Head / Neck Cranium. Head size. Head shape.Lateral ventricles. Midline falx. Cavum septi pellucidi. Cerebellum.Cisterna magna. Thalami. Face Lips. Profile. Nose. Heart / Thorax 4-chamber view. RVOT view. LVOT view.2-koncnf-eglorkt view. Diaphragm. Abdomen Stomach. Kidneys. Bladder. The [...] Face Lips. Profile. Nose. Heart / Thorax 3-htiiot-tdgdvxq view. sex: female. Fetus 1: DOPPLER ----- [...] twin anemia polycythemia syndrome. Case Berrios MD [facility] US ORDERABL ES documented in this encounter Visit Diagnoses Diagnosis 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 documented in this encounter Care Teams Casing Crew Pusher Relationship Specialty Start Date End Date No Ref-Primary, Physician PCP - General 07/22/23 Mica Aguilar MD [address] [facility] [address] [place] [address] Assigned OBGYN Provider 08/31/23 documented as of this encounter
--- OUTSIDE RECORDS SUMMARY | 2023-11-24 07:38 | XMS_ITS | Encounter Summary ---
Author Organization [place] Address [address] [place] [address]. [place] [address] Care Team Providers Care Applicator Sprayer Name Role Phone No Ref-Primary, Physician Primary Care Provider Vanita Lin MD Unavailable [phone] Reason for Referral * (Routine) - Closed Specialty Diagnoses / Procedures Referred By Contac t Referred To Contact Cardiology 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 Procedures Echo (TTE) Complete Vanita Lin MD [address] [place] [address] [place] [address] [facility] [address] [place] [phone] Referral ID Status Reason Start Date Expiration Date Visits Re quested Visits Authorized [id number] Closed 08/08/2023 08/07/2024 1 1 Reason for Visit * (Routine) - Closed Specialty Diagnoses / Procedures Referred By Contbeata t Referred To Contact Cardiology 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 Procedures Echo (TTE) Vanita Tolbert MD [address] [place] [address] [place] [address] [facility] [address] [place] [phone] Referral ID Status Reason Start Date Expiration Date Visits Re quested Visits Authorized [id number] Closed 08/08/2023 08/07/2024 1 1 Encounter Details Date Type Department Care Team (Latest Contact Info) Description 10/10/2023 11:09 AM CDT - 10/10/2023 11:59 PM CDT Hospital Encounter [facility] [address] [place] [address] Vanita Lin MD [address] [facility] [address] [place] [address] Saray Coker Monochorionic diamniotic twin [...] CDT Appointment [facility] [place] [address] [facility] [address] [place] [address] Didi Daniel MD [address] [facility] [address] [place] [address] 12/05/2023 2:45 PM CDT Office Visit [facility] [place] [address] [facility] [address] [place] [phone] Didi Daniel MD [address] [facility] [address] [place] [address] 12/19/2023 11:00 AM CDT Appointment [facility] Maternal Medicine [place] [address] [facility] [address] [place] [phone] Tomasa Dickens MD [address] [place] [address] [place] [address] 12/19/2023 11:30 AM CDT Office Visit [facility] [place] [address] [facility] [address] [place] [phone] Tomasa Dickens MD [address] [place] [address] [place], [place] [address] 12/26/2023 3:00 PM CDT Appointment [facility] [place] [address] [facility] [address] [place] [phone] Tomasa Dickens MD [address] [place] [address] [place] [address] 12/26/2023 3:30 PM CDT Office Visit [facility] [place] [address] [facility] [address] [place] [phone] Tomasa Dickens MD [address] [place] [address] [place] [address] 01/02/2024 2:15 PM CDT Appointment [facility] [place] [address] [place] [phone] Tomasa Dickens MD [address] [place] [address] 01/02/2024 2:45 PM CDT Office Visit [facility] [place] [address] [place] [phone] Tomasa Dickens MD [address] [address] [place] [address] 01/09/2024 3:00 PM CDT Appointment [facility] [place] [address] [place] [phone] Tomasa Dickens MD [address] [place] [address] 01/09/2024 3:30 PM CDT Office Visit [facility]aternal Medicine [place] [address] [place] [phone] Tomasa Dickens MD [address] [place] [address] 01/16/2024 2:15 PM SKIDDER RUNNER Appointment [facility] Medicine [place] [address] [place] [phone] Tomasa Dickens MD [address] [place] [address] 01/16/2024 2:45 PM SKIDDER RUNNER Office Visit [facility] [place] [address] [place] [phone] Tomasa Dickens MD [address] [place] [address] documented as of this encounter Procedures Procedure Name Priority Date/Time Associated Diagnosis Comments ECHO - TWIN B COMPLETE Routine 10/10/2023 1:35 PM CDT 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 documented in this encounter Results * ECHO - TWIN B COMPLETE (10/10/2023 1:35 PM CDT) Anatomical Region Laterality Modality Echocardiography 10/10/2023 12:0 8 PM CDT Narrative 10/10/2023 2:59 PM CDT [id number]^RILEY^VANITA ? Study ID: [id number] ?[facility] ?[facility] ?[address] ?[place] [address] ? Echocardiogram Name: ROLANDO BELLAARASELI KYARA Tiago Study Date: 10/10/2023 12:08 PM [...] to the left atrium. There is laminar rggax-py-yeeg shunting across the foramen ovale. Atrioventricular valves: [...] Procedure Note Esequiel Grier MD - 10/10/2023 [id number] [facility] [id number]^MANUEL Study ID:[id number] [facility] [address] [address] Echocardiogram Name: KYARA MISHRA Study Date: 10/10/2023 12:08 PM Patient [facility]: [facility] Gender: Female Patient Class:Outpatient : [id number] Age: 22 yrs Ordering Provider: VANITA LIN Referring Provider: VANITA LIN Performed By: Doris Black Physician: Esequiel Grier MD Reason For Study: Monochorionic diamniotic [facility] Data: Number of fetuses: This is a [...] in to the left atrium. There is pjhwjygrruah-zq-xbau shunting across the foramen ovale. Atrioventricular valves: [...] trimester documented in this encounter Care Teams Applicator Sprayer Relationship Specialty Start Date End Date No Ref-Primary, Physician PCP - General 07/22/23 Vanita Lin MD [address] [facility] [address] [place] [address] Assigned OBGYN Provider 08/31/23 documented as of this encounter
--- OUTSIDE RECORDS SUMMARY | 2023-11-24 07:38 | XMS_ITS | Encounter Summary ---
Author Organization [place] Address [facility] [address] Care Team Providers Care Vice President Of Software Engineering Name Role Phone No Ref-Primary, Physician Primary Care Provider Mica Aguilar MD Unavailable [phone] Reason for Referral * Diagnostic Imaging Ultrasound (Routine) - Pending Review Specialty Diagnoses / Procedures Referred By Contbeata t Referred To Contact Radiology. 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 Procedures MFM Twins US Comprehensive F/U MFM Twins US Comprehensive F/U Raya Dikcens MD [address] [place] [address] Referral ID Status Reason Start Date Expiration Date V isits Requested Visits Authorized [id number] Pending Review 10/24/2023 10/23/2024 1 1 Reason for Visit * Diagnostic Imaging Ultrasound (Routine) - Pending Review Specialty Diagnoses / Procedures Referred By Contac t Referred To Contact Radiology. 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 Procedures MFM Twins US Comprehensive F/U MFM Twins US Comprehensive F/U Raya Dickens MD [address] [place] [address] Referral ID Status Reason Start Date Expiration Date V isits Requested Visits Authorized [id number] Pending Review 10/24/2023 10/23/2024 1 1 Encounter Details Date Type Department Care Team (Latest Contact Info) Description 11/07/2023 1:01 PM CDT - 11/07/2023 11:59 PM CDT Hospital Encounter [facility] Medicine [facility] [address] [facility] [address] [place] [address] Angelica Wright MD [address] [address] [facility] [address] [place] [address] Monochorionic diamniotic twin gestation in [...] Info) Description 12/05/2023 2:15 PM CDT Appointment [facility] Medicine [facility] [address] [facility] [address] [place] [phone] Didi Daniel MD [address] [facility] [address] [place], [place] [address] 12/05/2023 2:45 PM CDT Office Visit [facility] Maternal Medicine [place] [address] [facility] [address] [place] [phone] Didi Daniel MD [address] [facility] [address] [place] [address] 12/19/2023 11:00 AM CDT Appointment [facility] Maternal Medicine [place] [address] [address] [place] [phone] Raya Dickens MD [address] [place], [place] [address] 12/19/2023 11:30 AM CDT Office Visit [facility] Maternal Medicine [place] [address] [facility] [address] [place] [phone] Raya Dickens MD [address] [place] [address] 12/26/2023 3:00 PM CDT Appointment [facility] Maternal Medicine [place] [address] [facility] [address] [place] [phone] Raya Dickens MD [address] [place] [address] 12/26/2023 3:30 PM CDT Office Visit [facility] Maternal Medicine [place] [address] [facility] [address] [place] [phone] Raya Dickens MD [address] [place] [address] 01/02/2024 2:15 PM CDT Appointment [facility] Maternal Medicine Center [place] [address] [place] [phone] Raya Dickens MD [address] [place] [address] 01/02/2024 2:45 PM CDT Office Visit [facility] Maternal Medicine [place] [address] [place] [phone] Raya Dickens MD [address] [place] [address] 01/09/2024 3:00 PM CDT Appointment [facility] Maternal Medicine [place] [address] [place] [phone] Raya Dickens MD [address] [place] [address] 01/09/2024 3:30 PM CDT Office Visit [facility] Maternal Medicine [place] [address] [place] [phone] Raya Dickens MD [address] [place] [address] 01/16/2024 2:15 PM WAX ENGRAVER Appointment [facility] Maternal Medicine [place] [address] [place] [phone] Raya Dickens MD [address] [place] [address] 01/16/2024 2:45 PM WAX ENGRAVER Office Visit [facility] Maternal Medicine [place] [address] [place] [phone] Raya Dickens MD [address] [place] [address] documented as of this encounter Procedures Procedure [...] ? Study Date: ??11/07/2023 1:25pm Pat. NO: ??[id number] ?Referring ??MD: RAYA SHAH Site: ? Bone Worker: Sindhu Maurer RDMS : ??2000 ?Age: ?? [...] BPD ? 64.1 ?mm ? 25w 6d ?Valentino SANTACRUZ ? 84.5 ?mm ? 25w 3d ?Nicolaides [...] ?1 lb 13 ?oz EFW by ?Hadlock (MUS-QF-ID-FL) EFW discordance ?8.2 ? % Head / Face / Neck Biometry: Experience Designer ?5.2 ? mm CM ? 4.2 ? [...] lb 15 ? oz EFW by ?Hadlock (BZU-AK-EH-FL) EFW discordance ?8.2 ? % Head / Face / Neck Biometry: Experience Designer ?7.7 ? mm CM ? 4.0 ? mm Fetus 1: ANATOMY ----- The following structures appear normal: Head / Neck ? Cranium. Head size. Head shape. Lateral ventricles. Midline falx. Cavum septi pellucidi. Cerebellum. Cisterna magna. Thalami. Face ? Lips. Profile. Nose. Heart / Thorax ?RVOT view. LVOT view. 0-xlxsbu-pbilibs view. ? Diaphragm. Abdomen ? Stomach. Kidneys. [...] Heart / Thorax ?RVOT view. LVOT view. 5-chzqma-oyxxwim view. ? Diaphragm. Abdomen ? Stomach. Kidneys. [...] the patient (reviewing medical records/tests), in direct dwap-bw-bayc contact with the patient during her visit with the majority spent counseling and discussing the plan of care and documenting the visit in the electronic medical record. Please see note for details. Procedure Note Angelica Wright MD - 11/07/2023 Comp Follow Up ----- Pat. Name: KRISTYN MISHRA Study Date: 11/07/2023 1:25pm Pat. NO: [id number] Referring MD: RAYA SHAH Site: Bone Worker: Sindhu Maurer RDMS : 2000 Age: 23 [...] EFW (lb,oz) 1 lb 13oz EFW by Hadlock(CWG-XR-QV-FL) EFW discordance 8.2% Head / Face / Neck Biometry: Experience Designer 5.2mm CM 4.2mm Fetus 2: BIOMETRY ----- BPD 63.7mm 25w 5dHadlock OFD 87.1mm 26w 0dNicolaides HC 241.1mm 26w 1dHadlock Cerebellum tr 30.0mm 26w 4dNicolaides AC 226.7mm 27w 0d 61%Hadlock Femur 44.7mm 24w 5dHadlock Weight Calculation: EFW 891g 26%Hadlock EFW (lb,oz) 1 lb 15oz EFW by Hadlock(CPI-HP-AY-FL) EFW discordance 8.2% Head / Face / Neck Biometry: Experience Designer 7.7mm CM 4.0mm Fetus 1: ANATOMY ----- The following structures appear normal: Head / Neck Cranium. Head size. Head shape.Lateral ventricles. Midline falx. Cavum septi pellucidi. Cerebellum.Cisterna magna. Thalami. Face Lips. Profile. Nose. Heart / Thorax RVOT view. LVOT view. 0-jawkqf-qrczqhrryaw. Diaphragm. Abdomen Stomach. Kidneys. Bladder. Genitals. Spine Cervical spine. Thoracic spine.Lumbar spine. Sacral spine. The following structures were documented previously: Heart / Thorax 4-chamber view. sex: female. Fetus 2: ANATOMY ----- The following structures appear normal: Head / Neck Cranium. Head size. Head shape.Lateral ventricles. Midline falx. Cavum septi pellucidi. Cerebellum.Cisterna magna. Thalami. Face Lips. Nose. Heart / Thorax RVOT view. LVOT view. 8-nltaow-bharivebvip. Diaphragm. Abdomen Stomach. Kidneys. Bladder. Spine Cervical [...] see the patient (reviewing medical records/tests), in iwydcodhex-ds-xdqc contact with the patient during her visit [...] anemia polycythemia syndrome. Raya Dickens MD IMG [facility] US ORDERAB LES documented in this encounter Visit Diagnoses Diagnosis 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 documented in this encounter Care Teams Vice President Of Software Engineering Relationship Specialty Start Date End Date No Ref-Primary, Physician PCP - General 07/22/23 Mica Aguilar MD [address] [place] [address] Assigned OBGYN Provider 08/31/23 documented as of this encounter
--- OUTSIDE RECORDS SUMMARY | 2023-11-24 07:38 | XMS_ITS | Encounter Summary ---
Author Organization [place] Address [facility] [place] [address] Care Team Providers Care Transportation Design Engineer Name Role Phone No Ref-Primary, Physician Primary Care Provider Mica Aguilar MD Unavailable [phone] Reason for Referral * Diagnostic Imaging Ultrasound (Routine) - Pending Review Specialty Diagnoses / Procedures Referred By Contac t Referred To Contact Radiology. 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 Procedures MFM Twins US Comprehensive F/U MFM Twins US Comprehensive F/U Raya Dickens MD [address] [place] [address] Referral ID Status Reason Start Date Expiration Date V isits Requested Visits Authorized [id number] Pending Review 10/24/2023 10/23/2024 1 1 * Diagnostic Imaging Ultrasound (Routine) - Pending Review Specialty Diagnoses / Procedures Referred By Contac t Referred To Contact Radiology. 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 Procedures MFM Twins US Comprehensive F/U MFM Twins US Comprehensive F/U Raya Dickens MD [address] [place] [address] Referral ID Status Reason Start Date Expiration Date V isits Requested Visits Authorized [id number] Pending Review 10/24/2023 10/23/2024 1 1 * Diagnostic Imaging Ultrasound (Routine) - Pending Review Specialty Diagnoses / Procedures Referred By Contac t Referred To Contact Radiology. 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 Procedures MFM Twins Comprehensive F/U Raya Dickens MD [address] [place] [address] Referral ID Status Reason Start Date Expiration Date V isits Requested Visits Authorized [id number] Pending Review 10/24/2023 10/23/2024 1 1 * Diagnostic Imaging Ultrasound (Routine) - Pending Review Specialty Diagnoses / Procedures Referred By Contac t Referred To Contact Radiology. 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 Procedures MFM Twins P Raya Dickens MD [address] [place] [address] Referral ID Status Reason Start Date Expiration Date V isits Requested Visits Authorized [id number] Pending Review 10/24/2023 10/23/2024 1 1 * Diagnostic Imaging Ultrasound (Routine) - Pending Review Specialty Diagnoses / Procedures Referred By Contac t Referred To Contact Radiology. 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 Procedures MFM Twins Raya Castellanos MD [address] [place] [address] Referral ID Status Reason Start Date Expiration Date V isits Requested Visits Authorized [id number] Pending Review 10/24/2023 10/23/2024 1 1 * Diagnostic Imaging Ultrasound (Routine) - Pending Review Specialty Diagnoses / Procedures Referred By Contac t Referred To Contact Radiology. 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 Procedures MFM Twins US Comprehensive F/U Raya Dickens MD [address] [place] [address] Referral ID Status Reason Start Date Expiration Date V isits Requested Visits Authorized [id number] Pending Review 10/24/2023 10/23/2024 1 1 * Diagnostic Imaging Ultrasound (Routine) - Pending Review Specialty Diagnoses / Procedures Referred By Contac t Referred To Contact Radiology. 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 Procedures MFM Twins US Comprehensive F/U Raya Dickens MD [address] [place] [address] Referral ID Status Reason Start Date Expiration Date V isits Requested Visits Authorized [id number] Pending Review 10/24/2023 10/23/2024 1 1 * Diagnostic Imaging Ultrasound (Routine) - Pending Review Specialty Diagnoses / Procedures Referred By Contac t Referred To Contact Radiology. 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 Procedures MFM Twins US Comprehensive F/U Raya Dickens MD [address] [place] [address] Referral ID Status Reason Start Date Expiration Date V isits Requested Visits Authorized [id number] Pending Review 10/24/2023 10/23/2024 1 1 Reason for Visit * Reason Comments Ultrasound RL2/UAR/MCA-M/D twin s Encounter Details Date Type Department Care Team (Latest Contact Info) Description 10/24/2023 2:45 PM CDT Office Visit [facility] Maternal Medicine [facility] [place] [address] [facility] [address] [place] [address] Angelica Wright MD [address] [place] [address] Raya Dickens MD [address] [place] [address] Monochorionic diamniotic twin gestation in [...] 10/24/2023 2:45 PM CDT Patient presents to [facility] for RL2/UAR/MCA at 24w3d due to M/D twins. Positive movement x2. Denies LOF, vaginal bleeding or cramping/contractions. SBAR given to M , see their note in Epic. documented in this encounter Plan of Treatment Upcoming Encounters Date Type Department Care Team (Late st Contact Info) Description 12/05/2023 2:15 PM CDT Appointment [facility] Maternal Medicine [place] [address] [place] [phone] Didi Daniel MD [address] [facility] [address] [place] [address] 12/05/2023 2:45 PM CDT Office Visit [facility] Maternal Medicine [place] [address] [place] [phone] Didi Daniel MD [address] [facility] [address] [place] [address] 12/19/2023 11:00 AM CDT Appointment [facility] Maternal Medicine [place] [address] [place] [phone] Raya Dickens MD [address] [place], [place] [address] 12/19/2023 11:30 AM CDT Office Visit [facility] Maternal Medicine [place] [address] [place] [phone] Raya Dickens MD [address] [place] [address] 12/26/2023 3:00 PM CDT Appointment [facility] Maternal Medicine [place] [address] [place] [phone] Raya Dickens MD [address] [place] [address] 12/26/2023 3:30 PM CDT Office Visit [facility] Maternal Medicine Center [place] [address] [place] [phone] Raya Dickens MD [address] [place] [address] 01/02/2024 2:15 PM CDT Appointment [facility] Maternal Medicine [place] [address] [place] [phone] Raya Dickens MD [address] [place] [address] 01/02/2024 2:45 PM CDT Office Visit [facility] Maternal Medicine [place] [address] [place] [phone] Raya Dickens MD [address] [place] [address] 01/09/2024 3:00 PM CDT Appointment [facility] Maternal Medicine [place] [address] [place] [phone] Raya Dickens MD [address] [place] [address] 01/09/2024 3:30 PM CDT Office Visit [facility] Maternal Medicine [place] [address] [place] [phone] Raya Dickens MD [address] [place] [address] 01/16/2024 2:15 PM OFFICE SERVICES ASSOCIATE Appointment [facility] Maternal Medicine [place] [address] [place] [phone] Raya Dickens MD [address] [place], [place] [address] 01/16/2024 2:45 PM OFFICE SERVICES ASSOCIATE Office Visit [facility] Maternal Medicine [facility] [address] [place] [phone] Raya Dickens MD [address] [place], [place] [address] Scheduled Orders Name Type Priority Associated Diagnoses [...] US Comprehensive F/U (11/21/2023 11:19 AM CDT) Anatomical Region Laterality Modality Ultrasound 11/21/2023 9:59 [...] Pat. Name: KYARA MISHRA ? Study Date: ??11/21/2023 9:59am Pat. NO: ??[id number] ?Referring ??: RAYA SHAH Site: ? Product Examiner: Christopher Street RDMS : ??2000 ?Age: ?? [...] ?2 lb 6 ?oz EFW by ?Hadlock (HQC-IL-GC-FL) EFW discordance ?9.2 ? % Head / Face / Neck Biometry: Fine Craft Artist ?5.5 ? mm Fetus 2: BIOMETRY ----- [...] ?2 lb 10 ?oz EFW by ?Hadlock (FXM-XR-TJ-FL) EFW discordance ?9.2 ? % Fetus 1: [...] medical record, and communicating with other health career and guidance counselor and/or care coordination. Procedure Note Nitin Morris MD - 11/21/2023 Comp Follow Up ----- Pat. Name: KYARA MISHRA Study Date: 11/21/2023 9:59am Pat. NO: [id number] Referring MD: RAYA SHAH Site: Product Examiner: Christopher Street RDMS : 2000 Age: 23 [...] EFW (lb,oz) 2 lb 6oz EFW by Hadlock(UGW-QZ-UE-FL) EFW discordance 9.2% Head / Face / Neck Biometry: Fine Craft Artist 5.5mm Fetus 2: BIOMETRY ----- BPD 69.9mm 28w 1dHadlock OFD 94.3mm 27w 6dNicolaides HC 263.3mm 28w 5dHadlock AC 247.1mm 29w 0d 59%Hadlock Femur 49.7mm 26w 5dHadlock Humerus 45.2mm 26w 6dJeanty Weight Calculation: EFW 1,180g 27%Hadlock EFW (lb,oz) 2 lb 10oz EFW by Hadlock(VBE-UX-DP-FL) EFW discordance 9.2% Fetus 1: ANATOMY ----- [...] electronic medical record, andcommunicating with other health career and guidance counselor and/or carecoordination. IMPRESSION ----- Monochorionic diamniotic twin [...] transfusionsyndrome or twin anemia polycythemia syndrome. Raya [facility] US ORDERAB LES * M Twins US Comprehensive F/U (11/07/2023 2:29 PM [...] ? Study Date: ??11/07/2023 1:25pm Pat. NO: ??[id number] ?Referring ??MD: RAYA SHAH Site: ? Product Examiner: Sindhu Maurer RDMS : ??2000 ?Age: ?? [...] ?1 lb 13 ?oz EFW by ?Hadlock (VRA-UR-FB-FL) EFW discordance ?8.2 ? % Head / Face / Neck Biometry: Fine Craft Artist ?5.2 ? mm CM ? 4.2 ? [...] lb 15 ? oz EFW by ?Hadlock (ZQT-HZ-LI-FL) EFW discordance ?8.2 ? % Head / Face / Neck Biometry: Fine Craft Artist ?7.7 ? mm CM ? 4.0 ? mm Fetus 1: ANATOMY ----- The following structures appear normal: Head / Neck ? Cranium. Head size. Head shape. Lateral ventricles. Midline falx. Cavum septi pellucidi. Cerebellum. Cisterna magna. Thalami. Face ? Lips. Profile. Nose. Heart / Thorax ?RVOT view. LVOT view. 5-mecegz-ogramdk view. ? Diaphragm. Abdomen ? Stomach. Kidneys. [...] Heart / Thorax ?RVOT view. LVOT view. 6-fapekw-tswdqbe view. ? Diaphragm. Abdomen ? Stomach. Kidneys. [...] the patient (reviewing medical records/tests), in direct jwem-dw-mdsc contact with the patient during her visit with the majority spent counseling and discussing the plan of care and documenting the visit in the electronic medical record. Please see note for details. Procedure Note Angelica Wright MD - 11/07/2023 Comp Follow Up ----- Pat. Name: KYARA MISHRA Study Date: 11/07/2023 1:25pm Pat. NO: [id number] Referring MD: RAYA SHAH Site: Product Examiner: Sindhu Maurer RDMS : 2000 Age: 23 [...] EFW (lb,oz) 1 lb 13oz EFW by Hadlock(TAX-NR-UM-FL) EFW discordance 8.2% Head / Face / Neck Biometry: Fine Craft Artist 5.2mm CM 4.2mm Fetus 2: BIOMETRY ----- BPD 63.7mm 25w 5dHadlock OFD 87.1mm 26w 0dNicolaides HC 241.1mm 26w 1dHadlock Cerebellum tr 30.0mm 26w 4dNicolaides AC 226.7mm 27w 0d 61%Hadlock Femur 44.7mm 24w 5dHadlock Weight Calculation: EFW 891g 26%Hadlock EFW (lb,oz) 1 lb 15oz EFW by Hadlock(XTT-AK-TJ-FL) EFW discordance 8.2% Head / Face / Neck Biometry: Fine Craft Artist 7.7mm CM 4.0mm Fetus 1: ANATOMY ----- The following structures appear normal: Head / Neck Cranium. Head size. Head shape.Lateral ventricles. Midline falx. Cavum septi pellucidi. Cerebellum.Cisterna magna. Thalami. Face Lips. Profile. Nose. Heart / Thorax RVOT view. LVOT view. 0-vwjxgm-zskxizcxbau. Diaphragm. Abdomen Stomach. Kidneys. Bladder. Genitals. Spine Cervical spine. Thoracic spine.Lumbar spine. Sacral spine. The following structures were documented previously: Heart / Thorax 4-chamber view. sex: female. Fetus 2: ANATOMY ----- The following structures appear normal: Head / Neck Cranium. Head size. Head shape.Lateral ventricles. Midline falx. Cavum septi pellucidi. Cerebellum.Cisterna magna. Thalami. Face Lips. Nose. Heart / Thorax RVOT view. LVOT view. 6-gpjjdm-abvwrtvzqao. Diaphragm. Abdomen Stomach. Kidneys. Bladder. Spine Cervical [...] see the patient (reviewing medical records/tests), in llxjwwckau-uc-xstb contact with the patient during her visit [...] anemia polycythemia syndrome. Raya Dickens MD IMG MFM US ORDERAB LES documented in this encounter Visit Diagnoses Diagnosis 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- Primary 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 documented in this encounter Care Teams Transportation Design Engineer Relationship Specialty Start Date End Date No Ref-Primary, Physician PCP - General 07/22/23 Mica Aguilar MD [address] [place] [address] Assigned OBGYN Provider 08/31/23 documented as of this encounter
--- OUTSIDE RECORDS SUMMARY | 2023-11-24 07:38 | XMS_ITS | Encounter Summary ---
Author Organization [place] Address [address] [facility] [place] [address] Care Team Providers Care Bleacher [employer] Name Role Phone No Ref-Primary, Physician Primary Care Provider Mica Aguilar MD Unavailable [phone] Encounter Details Date Type Department Care [...] Info) Description 12/05/2023 2:15 PM CDT Appointment [facility] Maternal Medicine Center [place] [address] [facility] [address] [place] [address] Didi Daniel MD [address] [facility] [address] [place] [address] 12/05/2023 2:45 PM CDT Office Visit [facility] M[facility] Medicine [place] [address] [place] [phone] Didi Daniel MD [address] [facility] [address] [place] [address] 12/19/2023 11:00 AM CDT Appointment [facility] Maternal Medicine [place] [address] [place] [phone] Tomasa Dickens MD [address] [place] [address] 12/19/2023 11:30 AM CDT Office Visit [facility] Maternal Medicine [place] [address] [place] [phone] Tomasa Dickens MD [address] [place] [address] 12/26/2023 3:00 PM CDT Appointment [facility] Maternal Medicine [place] [address] [place] [phone] Tomasa Dickens MD [address] [place] [address] 12/26/2023 3:30 PM CDT Office Visit [facility] M[facility] Medicine [place] [address] [place] [phone] Tomasa Dickens MD [address] [place] [address] 01/02/2024 2:15 PM CDT Appointment [facility] Maternal Medicine [place] [address] [place] [phone] Tomasa Dickens MD [address] [place] [address] 01/02/2024 2:45 PM CDT Office Visit [facility] M[facility] Medicine [place] [address] [place] [phone] Tomasa Dickens MD [address] [place] [address] 01/09/2024 3:00 PM CDT Appointment [facility] Maternal Medicine [place] [address] [place] [phone] Tomasa Dickens MD [address] [place] [address] 01/09/2024 3:30 PM CDT Office Visit [facility] Maternal Medicine [place] [address] [place] [phone] Tomasa Dickens MD [address] [place] [address] 01/16/2024 2:15 PM PHOTO TECHNICIAN Appointment [facility] Maternal Medicine [place] [address] [place] [phone] Tomasa Dickens MD [address] [place] [address] 01/16/2024 2:45 PM PHOTO TECHNICIAN Office Visit [facility] Maternal Medicine [place] [address] [place] [phone] Tomasa Dickens MD [address] [place], [place] [address] documented as of this encounter Visit Diagnoses Not on filedocumented in this encounter Care Teams Bleacher [employer] Relationship Specialty Start Date End Date No Ref-Primary, Physician PCP - General 07/22/23 Mica Aguilar MD [address] [facility] [address] [place], [place] [phone] Assigned OBGYN Provider 08/31/23 documented as of this encounter
--- OUTSIDE RECORDS SUMMARY | 2023-11-24 07:38 | XMS_ITS | Encounter Summary ---
Author Organization [place] Address [facility] [place] [address] Care Team Providers Care Account Services Associate Name Role Phone No Ref-Primary, Physician Primary Care Provider Mica Aguilar MD Unavailable [phone] Reason for Referral * Diagnostic Imaging Ultrasound (Routine) - Pending Review Specialty Diagnoses / Procedures Referred By Contac t Referred To Contact Radiology. 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 Procedures MFM Twins Comprehensive F/U Mica Aguilar MD [address] [place] [address] Referral ID Status Reason Start Date Expiration Date V isits Requested Visits Authorized [id number] Pending Review 08/08/2023 08/07/2024 1 1 Reason for Visit * Diagnostic Imaging Ultrasound (Routine) - Pending Review Specialty Diagnoses / Procedures Referred By Contac t Referred To Contact Radiology. 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 Procedures MFM Twins US Comprehensive F/U Mica Aguilar MD [address] [place] [address] Referral ID Status Reason Start Date Expiration Date V isits Requested Visits Authorized [id number] Pending Review 08/08/2023 08/07/2024 1 1 Encounter Details Date Type Department Care Team (Latest Contact Info) Description 10/08/2023 11:26 AM CDT - 10/08/2023 11:59 PM CDT Hospital Encounter [facility] Medicine [facility] [address] [facility] [address] [place] [phone] Mica Aguilar MD [address] [place] [address] Case Berrios MD [address] [place] [address] Monochorionic diamniotic twin gestation in [...] Info) Description 12/05/2023 2:15 PM CDT Appointment [facility] Medicine [facility] [address] [facility] [facility] [address] [place] [phone] Didi Daniel MD 420 [facility] [address] [place] [address] 12/05/2023 2:45 PM CDT Office Visit [facility] Maternal Medicine [place] [address] [place] [phone] Didi Daniel MD 420 [facility] [address] [place] [address] 12/19/2023 11:00 AM CDT Appointment [facility] Maternal Medicine [place] [address] [facility] [address] [place] [phone] Raya Dickens MD [address] [place] [address] 12/19/2023 11:30 AM CDT Office Visit [facility] Maternal Medicine [place] [address] [facility] [address] [place] [phone] Raya Dickens MD [address] [place], [place] [address] 12/26/2023 3:00 PM CDT Appointment [facility] Maternal Medicine [place] [address] [facility] [address] [place] [phone] Raya Dickens MD [address] [place], [place] [address] 12/26/2023 3:30 PM CDT Office Visit [facility] Maternal Medicine [place] [address] [facility] [address] [place] [phone] Raya Dickens MD [address] [place], [place] [address] 01/02/2024 2:15 PM CDT Appointment [facility] Maternal Medicine [place] [address] [place] [phone] Raya Dickens MD [address] [place] [address] 01/02/2024 2:45 PM CDT Office Visit [facility] Maternal Medicine [place] [address] [facility] [address] [place] [phone] Raya Dickens MD [address] [place] [address] 01/09/2024 3:00 PM CDT Appointment [facility] Maternal Medicine [place] [address] [place] [phone] Raya Dickens MD [address] [place] [address] 01/09/2024 3:30 PM CDT Office Visit [facility] Maternal Medicine [place] [address] [facility] [address] [place] [phone] Raya Dickens MD [address] [place] [address] 01/16/2024 2:15 PM TRANSMISSION BUILDER Appointment [facility] Maternal Medicine [place] [address] [facility] [address] [place] [phone] Raya Dickens MD [address] [place] [address] 01/16/2024 2:45 PM TRANSMISSION BUILDER Office Visit [facility] Maternal Medicine Center [place] [address] [facility] [address] [place] [address] Raya Dickens MD [address] [facility] [address] [place] [address] documented as of this encounter [...] ? Study Date: ??10/08/2023 11:35am Pat. NO: ??[id number] ?Referring ??MD: RAYA SHAH Site: ? National Sales: Linda Lock RDMS : ??2000 ?Age: ?? [...] The patient is scheduled to return to [facility] in 2 weeks for MCDA twin surveillance. [...] MISHRA Study Date: 10/08/2023 11:35am Pat. NO: [id number] Referring MD: RAYA SHAH Site: National Sales: Linda Lock RDMS : 2000 Age: 22 ----- INDICATION ----- Monochorionic, Diamniotic Twin gestation. Mild poly Twin A. Elevated Dopplers on both twins. METHOD ----- Transabdominal ultrasound examination. View: Sufficient. ----- Twin . Number of fetuses: 2. Monochorionic-diamniotic DATING ----- DateDetailsGest. age FERNANDO LMP 04/29/2023ycle: irregular cycle23 w + 1 d 02/03/2024 [...] The patient is scheduled to return to [facility] in 2 weeks for MCDA twinsurveillance. Return [...] twin anemia polycythemia syndrome. Mica Aguilar MD [facility] MF US ORDERABLE S documented in this encounter Visit Diagnoses Diagnosis 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 documented in this encounter Care Teams Account Services Associate Relationship Specialty Start Date End Date No Ref-Primary, Physician PCP - General 07/22/23 Mica Aguilar MD [address] [place] [address] Assigned OBGYN Provider 08/31/23 documented as of this encounter
--- OUTSIDE RECORDS SUMMARY | 2023-11-24 07:38 | XMS_ITS | Encounter Summary ---
Author Organization [place] Address [facility] [place] [address] Care Team Providers Care Gauge Controller Name Role Phone No Ref-Primary, Physician Primary Care Provider Mica Aguilar MD Unavailable [phone] Reason for Referral * Diagnostic Imaging Ultrasound (Routine) - Pending Review Specialty Diagnoses / Procedures Referred By Contac t Referred To Contact Radiology. 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 Procedures MFM Twins Comprehensive F/U Raya Dickens MD [address] [place] [address] Referral ID Status Reason Start Date Expiration Date V isits Requested Visits Authorized [id number] Pending Review 10/24/2023 10/23/2024 1 1 Encounter Details Date Type Department Care Team (Latest Contact Info) Description 11/21/2023 9:59 AM CDT - 11/21/2023 11:59 PM CDT Hospital Encounter [facility] Medicine [place] [address] [facility] [address] [place] [phone] Raya Dickens MD [address] [place] [address] Nitin Morris MD [address] [place] [address] Monochorionic diamniotic twin gestation in [...] Info) Description 12/05/2023 2:15 PM CDT Appointment [facility] Medicine [facility] [address] [facility] [address] [place] [phone] Didi Daniel MD [address] [facility] [address] [place] [address] 12/05/2023 2:45 PM CDT Office Visit [facility] Maternal Medicine Center [place] [address] [place] [address] Didi Daniel MD [address] [facility] [address] [place] [address] 12/19/2023 11:00 AM CDT Appointment [facility] Maternal Medicine [place] [address] [place] [phone] Raya Dickens MD [address] [place] [address] 12/19/2023 11:30 AM CDT Office Visit [facility] Maternal Medicine [place] [address] [place] [phone] Raya Dickens MD [address] [place] [address] 12/26/2023 3:00 PM CDT Appointment [facility] Maternal Medicine [place] [address] [place] [phone] Raya Dickens MD [address] [place] [address] 12/26/2023 3:30 PM CDT Office Visit [facility] Maternal Medicine [place] [address] [place] [phone] Raya Dickens MD [address] [place] [address] 01/02/2024 2:15 PM CDT Appointment [facility] Maternal Medicine [place] [address] [place] [phone] Raya Dickens MD [address] [place] [address] 01/02/2024 2:45 PM CDT Office Visit [facility] Maternal Medicine [place] [address] [facility] [address] [place] [phone] Raya Dickens MD [address] [place] [address] 01/09/2024 3:00 PM CDT Appointment [facility] Maternal Medicine [place] [address] [place] [phone] Raya Dickens MD [address] [place] [address] 01/09/2024 3:30 PM CDT Office Visit [facility] Maternal Medicine [place] [address] [place] [phone] Raya Dickens MD [address] [place] [address] 01/16/2024 2:15 PM MOTOR EXPERT Appointment [facility] Maternal Medicine [place] [address] [facility] [address] [place] [phone] Raya Dickens MD [address] [place] [address] 01/16/2024 2:45 PM MOTOR EXPERT Office Visit [facility] Medicine [facility] [place] [address] [facility] [address] [place] [address] Raya Dickens MD [address] [place] [address] 400 [place] [address] documented as of this encounter [...] CDT ?Comp Follow Up ----- Pat. Name: MARSHALL VILLEGASKRISTYN MARX ? Study Date: ??11/21/2023 9:59am Pat. NO: ??[id number] ?Referring ??MD: RAYA SHAH Site: ? Horticultural Services Supervisor: Christopher Street RDMS : ??2000 ?Age: ?? [...] BPD ? 70.2 ?mm ? 28w 1d ?Valentino SANTACRUZ ? 92.0 ?mm ? 27w 2d ?Nicolaides HC ? 258.7 ?mm ? 28w 1d ? Hadlock AC ? 233.9 ?mm ? 27w 5d ?22% ?Hadlock Femur ?49.3 ?mm ? 26w 4d ? Hadlock Humerus ? 45.3 ? mm ?26w 6d ?Celestina Weight Calculation: EFW ?1,071 ?g ? 11% ?Hadlock EFW (lb,oz) ?2 lb 6 ?oz EFW by ?Hadlock (FUO-MU-DT-FL) EFW discordance ?9.2 ? % Head / Face / Neck Biometry: Manager Paper ?5.5 ? mm Fetus 2: BIOMETRY ----- BPD ? 69.9 ?mm ? 28w 1d ?Valentino SANTACRUZ ? 94.3 ?mm ? 27w 6d ?Nicolaides HC ? 263.3 ?mm ? 28w 5d ? Hadlock AC ? 247.1 ?mm ? 29w 0d ?59% ?Hadlock Femur ?49.7 ?mm ? 26w 5d ? Hadlock Humerus ? 45.2 ? mm ?26w 6d ?Celestina Weight Calculation: EFW ?1,180 ?g ?27% ? Hadlock EFW (lb,oz) ?2 lb 10 ?oz EFW by ?Hadlock (IJA-PF-FE-FL) EFW discordance ?9.2 ? % Fetus 1: [...] midcord PI ? 1.18 ? 82% ? Uknal HR ? 173 ? bpm Mid Cerebral [...] medical record, and communicating with other health intensive care anaesthetist and/or care coordination. Procedure Note Nitin Morris MD - 11/21/2023 Comp Follow Up ----- Pat. Name: KRISTYN MISHRA Study Date: 11/21/2023 9:59am Pat. NO: [id number] Referring MD: RAYA SHAH Site: Horticultural Services Supervisor: Christopher Street RDMS : 2000 Age: 23 [...] EFW (lb,oz) 2 lb 6oz EFW by Hadlock(PHG-BL-VG-FL) EFW discordance 9.2% Head / Face / Neck Biometry: Manager Paper 5.5mm Fetus 2: BIOMETRY ----- BPD 69.9mm 28w 1dHadlock OFD 94.3mm 27w 6dNicolaides HC 263.3mm 28w 5dHadlock AC 247.1mm 29w 0d 59%Hadlock Femur 49.7mm 26w 5dHadlock Humerus 45.2mm 26w 6dJeanty Weight Calculation: EFW 1,180g 27%Hadlock EFW (lb,oz) 2 lb 10oz EFW by Hadlock(CXX-QC-RH-FL) EFW discordance 9.2% Fetus 1: ANATOMY ----- The following structures appear normal: Abdomen Bladder. sex: female. Fetus 2: ANATOMY ----- The following structures appear normal: Abdomen Bladder. sex: female. Fetus 1: DOPPLER ----- Umbilical Artery: normal. Sampling site: midcord PI 1.2589% Kunal HR 151bpm Mid Cerebral Artery: normal PS 37.16cm/s PS 0.99MoM Fetus 2: DOPPLER ----- Umbilical Artery: normal. Sampling site: midakrd PI 1.1882% Kunal HR 173bpm Mid Cerebral [...] electronic medical record, andcommunicating with other health intensive care anaesthetist and/or carecoordination. IMPRESSION ----- Monochorionic diamniotic twin [...] twin anemia polycythemia syndrome. 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
--- OUTSIDE RECORDS SUMMARY | 2023-11-24 07:38 | XMS_ITS | Encounter Summary ---
Author Organization [place] Address [address] [place] [address]. [place] [address] Care Team Providers Care Quarry Plug And Feather Driller Name Role Phone No Ref-Primary, Physician Primary Care Provider Mica Aguilar MD Unavailable [phone] Encounter Details Date Type Department Care Team (Late st Contact Info) Description 10/10/2023 Office Visit [facility] Heart Care [address] [place] [phone] Esequiel Grier MD [address] [place] [phone] cardiac disease affecting , fetus 1 of [...] pleasure of seeing Kyara Villegas at the [facility] on 10/10/2023 in cardiology consultation for echocardiogram [...] her partner with the assistance of a bowling pin refinisher. She is aware that the study was [...] care. I spent approximately 20 minutes in [id number]-[id number] time reviewing the above considerations. Esequiel Grier M.D. Pediatric Cardiology [address], 5th floor, [facility] [address] documented in this encounter Plan of Treatment Upcoming Encounters Date Type Department Care Team (Late st Contact Info) Description 12/05/2023 2:[address] [facility] Medicine [place] [address] [facility] [address] [place] [phone] Didi Daniel MD [address] [facility] [address] [place] [address] 12/05/2023 2:45 PM CDT Office Visit [facility] Maternal Medicine [place] [address] [facility] [address] [place] [phone] Didi Daniel MD [address] [facility] [address] [place] [address] 12/19/2023 11:[address] [facility] Medicine [place] [address] [facility] [address] [place] [phone] Tomasa Dickens MD [address] [place] [address] 12/19/2023 11:30 AM CDT Office Visit [facility] Maternal Medicine [place] [address] [facility] [address] [place] [phone] Tomasa Dickens MD [address] [place] [address] 12/26/2023 3:[address] [facility] Maternal Medicine [place] [address] [place] [phone] Tomasa Dickens MD [address] [place], [place] [address] 12/26/2023 3:30 PM CDT Office Visit [facility] Maternal Medicine [place] [address] [place] [phone] Tomasa Dickens MD [address] [place] [address] 01/02/2024 2:[address] [facility] Maternal Medicine [place] [address] [place] [phone] Tomasa Dickens MD [address] [place] [address] 01/02/2024 2:45 PM CDT Office Visit [facility] Maternal Medicine [place] [address] [place] [phone] Tomasa Dickens MD [address] [place] [address] 01/09/2024 3:[address] [facility] Maternal Medicine [place] [address] [place] [phone] Tomasa Dickens MD [address] [place] [address] 01/09/2024 3:30 PM CDT Office Visit [facility] Maternal Medicine [place] [address] [place] [phone] Tomasa Dickens MD [address] [place] [address] 01/16/2024 2:15 PM RING CONDUCTOR [facility] [facility] Maternal Medicine [place] [address] [place] [phone] oTmasa Dickens MD [address] [place], [place] [address] 01/16/2024 2:45 PM RING CONDUCTOR Office [facility] Maternal Medicine [facility] [address] [facility] [address] [place] [phone] Tomasa Dickens MD [address] [place] [address] documented as of this encounter Visit Diagnoses Diagnosis cardiac disease affecting , fetus 1 of multiple gestation- Primary cardiac disease affecting , fetus 2 of multiple gestation documented in this encounter Care Teams Quarry Plug And Feather Driller Relationship Specialty Start Date End Date No Ref-Primary, Physician PCP - General 07/22/23 Mica Aguilar MD [address] [place] [address] Assigned OBGYN Provider 08/31/23 documented as of this encounter
--- OUTSIDE RECORDS SUMMARY | 2023-11-24 07:38 | XMS_ITS | Encounter Summary ---
Author Organization [place] Address [address] [facility] [place] [address] Care Team Providers Care Grain Commodity Manager Name Role Phone No Ref-Primary, Physician Primary Care Provider Mica Aguilar MD Unavailable [phone] Reason for Visit * Reason Comments Ultrasound RL2/UAR/MCA-M/D twin s, Twin A: EFW 12% Encounter Details Date Type Department Care Team (Latest Contact Info) Description 11/07/2023 2:00 PM CDT Office Visit [facility] Maternal Medicine Center [place] [address] [place] [address] Angelica Wright MD [address] [place] [address] Monochorionic diamniotic twin gestation in [...] 11/07/2023 2:00 PM CDT Patient presents to [facility] for RL2/UAR/MCA at 26w3d due to M/D twins, Twin A: EFW 12%. Positive movement x2. Denies LOF, vaginal bleeding or cramping/contractions. SBAR given to [facility] MD, see their note in Epic. documented in this encounter Plan of Treatment Upcoming Encounters Date Type Department Care Team (Late st Contact Info) Description 12/05/2023 2:15 PM CDT Appointment [facility] Maternal Medicine [place] [address] [place] [address] Didi Daniel MD [address] [place] [address] [address] [place], [place] [address] 12/05/2023 2:45 PM CDT Office Visit [facility] M[facility] Medicine [facility] [place] [address] [place] [phone] Didi Daniel MD 420 [facility] [address] [place], [place] [address] 12/19/2023 11:00 AM CDT Appointment [facility] M[facility] Medicine [facility] [place] [address] [place] [address] Tomasa Dickens MD [address] [id number] 12/19/2023 11:30 AM CDT Office Visit [facility] Maternal Medicine [place] [address] [place] [phone] Tomasa Dickens MD [address] [place] [address] 12/26/2023 3:00 PM CDT Appointment [facility] Maternal Medicine [place] [address] [place] [phone] Tomasa Dickens MD [address] [place] [address] 12/26/2023 3:30 PM CDT Office Visit [facility] Maternal Medicine [place] [address] [place] [phone] Tomasa Dickens MD [address] [place] [address] 01/02/2024 2:15 PM CDT Appointment [facility] Maternal Medicine [place] [address] [place] [phone] Tomasa Dickens MD [address] [place] [address] 01/02/2024 2:45 PM CDT Office Visit [facility] Maternal Medicine [place] [address] [place] [phone] Tomasa Dickens MD [address] [place] [address] 01/09/2024 3:00 PM CDT Appointment [facility] Medicine [place] [address] [place] [address] Tomasa Dickens MD [address] [place] [address] 01/09/2024 3:30 PM CDT Office Visit [facility] Medicine [place] [address] [place] [phone] Tomasa Dickens MD [address] [place], [place] [address] 01/16/2024 2:15 PM MERCHANT BANKER Appointment [place] [address] [place] [phone] Tomasa Dickens MD [address] [place] [address] 01/16/2024 2:45 PM MERCHANT BANKER Office Visit [facility] [place] [address] [place] [phone] Tomasa Dickens MD [address] [place], [place] [address] documented as of this encounter Visit Diagnoses Diagnosis 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
--- OUTSIDE RECORDS SUMMARY | 2023-11-24 07:38 | XMS_ITS | Encounter Summary ---
Author Organization [place] Address [address] [facility] [place] [address] Care Team Providers Care Herb Grower Name Role Phone No Ref-Primary, Physician Primary Care Provider Mica Aguilar MD Unavailable [phone] Encounter Details Date Type Department Care [...] Info) Description 12/05/2023 2:15 PM CDT Appointment [facility] Maternal Medicine Center [place] [address] [facility] [address] [place] [address] Didi Daneil MD [address] [facility] 395 [place] [address] 12/05/2023 2:45 PM CDT Office Visit [facility] Maternal Medicine [place] [address] [place] [phone] Didi Daniel MD [address] [facility] 395 [place] [address] 12/19/2023 11:00 AM CDT Appointment [facility] Maternal Medicine [place] [address] [place] [phone] Tomasa Dickens MD [address] [place] [address] 12/19/2023 11:30 AM CDT Office Visit [facility] Maternal Medicine [place] [address] [place] [phone] Tomasa Dickens MD [address] [place] [address] 12/26/2023 3:00 PM CDT Appointment [facility] Maternal Medicine [place] [address] [place] [phone] Tomasa Dickens MD [address] [place] [address] 12/26/2023 3:30 PM CDT Office Visit [facility] Maternal Medicine [place] [address] [place] [phone] Tomasa Dickens MD [address] [place] [address] 01/02/2024 2:15 PM CDT Appointment [facility] Maternal Medicine [place] [address] [place] [address] Tomasa Dickens MD [address] [place] [address] 01/02/2024 2:45 PM CDT Office Visit [facility] Maternal Medicine [place] [address] [place] [phone] Tomasa Dickens MD [address] [place] [address] 01/09/2024 3:00 PM CDT Appointment [facility] Maternal Medicine [place] [address] [place] [phone] Tomasa Dickens MD [address] [place] [address] 01/09/2024 3:30 PM CDT Office Visit [facility] Maternal Medicine [place] [address] [place] [phone] Tomasa Dickens MD [address] [place] [address] 01/16/2024 2:15 PM SUPERVISOR BELT AND LINK ASSEMBLY Appointment [facility] Maternal Medicine [place] [address] [place] [phone] Tomasa Dickens MD [address] [place] [address] 01/16/2024 2:45 PM SUPERVISOR BELT AND LINK ASSEMBLY Office Visit [facility] Maternal Medicine [place] [address] [place] [phone] Tomasa Dickens MD [address] [place], [place] [address] documented as of this encounter Visit Diagnoses Not on filedocumented in this encounter Care Teams Herb Grower Relationship Specialty Start Date End Date No Ref-Primary, Physician PCP - General 07/22/23 Mica Aguilar MD [address] [facility] [address] [place], [place] [id number] Assigned OBGYN Provider 08/31/23 documented as of this encounter
--- OUTSIDE RECORDS SUMMARY | 2023-11-24 07:38 | XMS_ITS | Encounter Summary ---
Author Organization [place] Address [address] [facility] [place] [address] Care Team Providers Care Airport Attendant Name Role Phone No Ref-Primary, Physician Primary Care Provider Mica Aguilar MD Unavailable [phone] Encounter Details Date Type Department Care [...] Appointment [facility] Maternal Medicine Center [place] [address] [facility] [address] [place] [address] Didi Daniel MD 420 [facility] 395 [place] [address] 12/05/2023 2:45 PM CDT Office Visit [facility] Maternal Medicine Center [place] [address] [place] [phone] Didi Daniel MD 420 [facility] [address] [place] [address] 12/19/2023 11:[address] [facility] Maternal Medicine [place] [address] [place] [phone] Tomasa Dickens MD [address] [place] [address] 12/19/2023 11:30 AM CDT Office Visit [facility] Maternal Medicine [place] [address] [place] [phone] Toamsa Dickens MD [address] [place] [address] 12/26/2023 3:[address] [facility] Maternal Medicine [place] [address] [place] [phone] Tomasa Dickens MD [address] [place] [address] 12/26/2023 3:30 PM CDT Office Visit [facility] Maternal Medicine Center [place] [address] [place] [phone] Tomasa Dickens MD [address] [place] [address] 01/02/2024 2:[address] [facility] Maternal Medicine [place] [address] [place] [phone] Tomasa Dickens MD [address] [place] [address] 01/02/2024 2:45 PM CDT Office Visit [facility] Maternal Medicine Center [place] [address] [place] [phone] Tomasa Dickens MD [address] [place] [address] 01/09/2024 3:[address] [facility] Maternal Medicine [place] [address] [place] [phone] Tomasa Dickens MD [address] [place] [address] 01/09/2024 3:30 PM CDT Office Visit [facility] Maternal Medicine [place] [address] [place] [phone] Tomasa Dickens MD [address] [place] [address] 01/16/2024 2:15 PM MANAGER CARDIAC CATH Appointment [facility] Maternal Medicine [place] [address] [place] [phone] Tomasa Dickens MD [address] [place] [address] 01/16/2024 2:45 PM MANAGER CARDIAC CATH Office Visit [facility] Maternal Medicine [place] [address] [place] [phone] Tomasa Dickens MD [address] [place], [place] [address] documented as of this encounter Visit Diagnoses Not on filedocumented in this encounter Care Teams Airport Attendant Relationship Specialty Start Date End Date No Ref-Primary, Physician PCP - General 07/22/23 Mica Aguilar MD [address] [facility] [address] [place], [place] [id number] Assigned OBGYN Provider 08/31/23 documented as of this encounter
--- OUTSIDE RECORDS SUMMARY | 2023-11-24 07:39 | XMS_ITS | Encounter Summary ---
Author Organization [place] Address [address] [place] [address]. [place] [address] Care Team Providers Care Monument Letterer Name Role Phone No Ref-Primary, Physician Primary Care Provider Reason for Referral * Diagnostic Imaging Ultrasound (Routine) - Pending Review Specialty Diagnoses / Procedures Referred By Contac t Referred To Contact Radiology. 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 Procedures MFM Twins US OB Complete 2/3 Tri Mica Aguilar MD [address] [address] Referral ID Status Reason Start Date Expiration Date V isits Requested Visits Authorized [id number] Pending Review 08/08/2023 08/07/2024 1 1 Reason for Visit * Diagnostic Imaging Ultrasound (Routine) - Pending Review Specialty Diagnoses / Procedures Referred By Contac t Referred To Contact Radiology. 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 Procedures MFM Twins US OB Complete 2/3 Tri Mica Aguilar MD [address] [place] [address] Referral ID Status Reason Start Date Expiration Date V isits Requested Visits Authorized [id number] Pending Review 08/08/2023 08/07/2024 1 1 Encounter Details Date Type Department Care Team (Latest Contact Info) Description 08/29/2023 1:19 PM CDT - 08/29/2023 11:59 PM CDT Hospital Encounter [facility] Maternal Medicine [place] [address] [place] [phone] Mica Aguilar MD [address] [place], [place] [phone] Case Berrios MD [address] [place] [address] Monochorionic diamniotic twin gestation in [...] Info) Description 12/05/2023 2:15 PM CDT Appointment [facility] Maternal Medicine [place] [address] [place] [phone] Didi Daniel MD [address] [address] 12/05/2023 2:45 PM CDT Office Visit [facility] Maternal Medicine [place] [address] [place] [phone] Didi Daniel MD [address] [address] 12/19/2023 11:00 AM CDT Appointment [facility] Maternal Medicine [place] [address] [place] [phone] Raya Dickens MD [address] [place] [address] 12/19/2023 11:30 AM CDT Office Visit [facility] Maternal Medicine [place] [address] [facility] [address] [place] [phone] Raya Dickens MD [address] [place] [address] 12/26/2023 3:00 PM CDT Appointment [facility] Maternal Medicine [place] [address] [place] [phone] Raya Dickens MD [address] [place] [address] 12/26/2023 3:30 PM CDT Office Visit [facility] Maternal Medicine [place] [address] [facility] [address] [place] [phone] Raya Dickens MD [address] [place] [address] 01/02/2024 2:15 PM CDT Appointment [facility] Maternal Medicine [place] [address] [place] [phone] Raya Dickens MD [address] [place], [place] [address] 01/02/2024 2:45 PM CDT Office Visit [facility] Maternal Medicine [place] [address] [place] [phone] Raya Dickens MD [address] [place] [address] 01/09/2024 3:00 PM CDT Appointment [facility] Maternal Medicine [place] [address] [place] [address] Raya Dickens MD [address] [place] [address] 01/09/2024 3:30 PM CDT Office Visit [facility] Medicine [place] [address] [facility] [address] [place] [phone] Raya Dickens MD [address] [place] [address] 01/16/2024 2:15 PM EXTENSION SUPERVISOR Appointment [facility] Maternal Medicine [place] [address] [place] [phone] Raya Dickens MD [address] [place] [address] 01/16/2024 2:45 PM EXTENSION SUPERVISOR Office Visit [facility] Maternal Medicine [place] [address] [place] [phone] Raya Dickens MD [address] [place], [place] [address] documented as of this encounter Procedures Procedure [...] ? Study Date: ??08/29/2023 1:33pm Pat. NO: ??[id number] ?Referring ??MD: RAYA SHAH Site: ? Shuttle Bus Driver: Carmen Zurita [facility] : ??2000 ?Age: ?? 22 ----- INDICATION [...] ?0 lb 5 ?oz EFW by ?Hadlock (CTC-GF-PT-FL) EFW discordance ?10.2 ?% Head / Face [...] ?0 lb 5 ?oz EFW by ?Hadlock (UXA-VU-VL-FL) EFW discordance ?10.2 ?% Head / Face [...] be visualized: Heart / Thorax ?3-vessel view. 1-dbmjaz-bxpqsfv view. Fetus 2: ANATOMY ----- The following structures appear normal: Head / Neck ? Cranium. Head size. Head shape. Lateral ventricles. Choroid plexus. Midline falx. Cavum septi pellucidi. Cerebellum. Cisterna magna. ? Parenchyma. Thalami. ? Neck. Nuchal fold. Face ? Lips. Profile. Nose. Maxilla. Mandible. Orbits. Lens. Heart / Thorax ?4-chamber view. RVOT view. LVOT view. 3-vessel view. 5-xuambv-cpfuwhr view. Situs. Aortic arch view. Bicaval view. [...] The patient is scheduled to return to [facility] in 2 weeks to assess for [...] - 10/08/2023 / Trim ----- Pat. Name: KRISTYN MISHRA Study Date: 08/29/2023 1:33pm Pat. NO: [id number] Referring MD: RAYA SHAH Site: Shuttle Bus Driver: Carmen Zurita RDMS : 2000 Age: 22 [...] EFW (lb,oz) 0 lb 5oz EFW by Hadlock(HIH-AT-RC-FL) EFW discordance 10.2% Head / Face / Neck Biometry: CM 4.6mm Nasal bone 4.1mm Fetus 2: BIOMETRY ----- BPD 33.2mm 16w 2dHadlock OFD 42.0mm 15w 0dNicolaides HC 120.9mm 16w 0dHadlock Cerebellum tr 16.2mm 16w 1dNicolaides Nuchal fold 2.2mm AC 101.3mm 16w 1d 40%Hadlock Femur 21.6mm 16w 3dHadlock Humerus 20.8mm 16w 1dJeanty Weight Calculation: EFW 151g 32%Hadlock EFW (lb,oz) 0 lb 5oz EFW by Hadlock(KCG-NE-BU-FL) EFW discordance 10.2% Head / Face / [...] be visualized: Heart / Thorax 3-vessel view. 5-ojfzzx-rdgcoycoate. Fetus 2: ANATOMY ----- The following structures appear normal: Head / Neck Cranium. Head size. Head shape.Lateral ventricles. Choroid plexus. Midline falx. Cavum septi pellucidi.Cerebellum. Cisterna magna. Parenchyma. Thalami. Neck. Nuchal fold. Face Lips. Profile. Nose. Maxilla.Mandible. Orbits. Lens. Heart / Thorax 4-chamber view. RVOT view. LVOT view.3-vessel view. 2-ebfqye-xydxoqq view. Situs. Aortic arch view. Bicavalview. Ductal [...] The patient is scheduled to return to [facility] in 2 weeks to assess forTTTS/TAPS [...] no evidence for TTTS/TAPS. Mica Aguilar MD [facility] US ORDERABLE S documented in this encounter Visit Diagnoses Diagnosis 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 documented in this encounter Care Teams Monument Letterer Relationship Specialty Start Date End Date No Ref-Primary, Physician PCP - General 07/22/23 documented as of this encounter
--- OUTSIDE RECORDS SUMMARY | 2023-11-24 07:39 | XMS_ITS | Encounter Summary ---
Author Organization [place] Address [address] [facility] [place] [address] Care Team Providers Care Conduit Installer Name Role Phone No Ref-Primary, Physician Primary Care Provider Reason for Visit * Reason Comments Ultrasound 2/3 complete-mono/di twins Encounter Details Date Type Department Care Team (Latest Contact Info) Description 08/29/2023 2:00 PM CDT Office Visit [facility] Maternal Medicine Center [place] [address] [facility] [address] [place] [address] Mica Aguilar MD [address] [place] [address] Case Berrios MD [address] [place] [address] Monochorionic diamniotic twin gestation in [...] for details of today's US at the [facility]. Case Berrios MD Maternal- Medicine documented in this encounter Plan of Treatment Upcoming Encounters Date Type Department Care Team (Late st Contact Info) Description 12/05/2023 2:15 PM CDT Appointment [facility] Medicine [place] [address] [place] [phone] Didi Daniel MD [address] [address] 12/05/2023 2:45 PM CDT Office Visit [facility] Medicine [place] [address] [place] [phone] Didi Daniel MD [address] [address] 12/19/2023 11:00 AM CDT Appointment [facility] Medicine [place] [address] [place] [phone] Tomasa Dickens MD [address] [place] [address] 12/19/2023 11:30 AM CDT Office Visit [facility] Medicine [place] [address] [place] [phone] Tomasa Dickens MD [address] [place] [address] 12/26/2023 3:00 PM CDT Appointment [facility] Maternal Medicine Center [place] [address] [place] [phone] Tomasa Dickens MD [address] [place] [address] 12/26/2023 3:30 PM CDT Office Visit [facility] Maternal Medicine [place] [address] [place] [phone] Tomasa Dickens MD [address] [place], [place] [address] 01/02/2024 2:15 PM CDT Appointment [facility] Maternal Medicine [place] [address] [place] [phone] Tomasa Dickens MD [address] [place] [address] 01/02/2024 2:45 PM CDT Office Visit [facility] Maternal Medicine [place] [address] [place] [phone] Tomasa Dickens MD [address] [place] [address] 01/09/2024 3:00 PM CDT Appointment [facility] Maternal Medicine [place] [address] [place] [phone] Tomasa Dickens MD [address] [place] [address] 01/09/2024 3:30 PM CDT Office Visit [facility] Maternal Medicine [place] [address] [place] [phone] Tomasa Dickens MD [address] [place], [place] [address] 01/16/2024 2:15 PM PANEL INSTALLER Appointment [facility] Maternal Medicine [facility] [address] [facility] [address] [place] [address] Tomasa Dickens MD [address] [place] [address] 01/16/2024 2:45 PM PANEL INSTALLER Office Visit [facility] Maternal Medicine [facility] [address] [facility] [address] [place] [phone] Tomasa Dickens MD [address] [place], [place] [address] documented as of this encounter Visit Diagnoses Diagnosis 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- Primary documented in this encounter Care Teams Conduit Installer Relationship Specialty Start Date End Date No Ref-Primary, Physician PCP - General 07/22/23 documented as of this encounter
--- OUTSIDE RECORDS SUMMARY | 2023-11-24 07:39 | XMS_ITS | Clinical Summary ---
Author Organization [facility] Address [place], [place] [address] Care Team Providers Care Tuna Purse Seiner Name Role Phone None Primary Care Provider [...] of Treatment Not on file Care Teams Tuna Purse Seiner Relationship Specialty Start Date End Date None . PCP - General 06/23/23
--- OUTSIDE RECORDS SUMMARY | 2023-11-24 07:39 | XMS_ITS | Encounter Summary ---
Author Organization [place] Address [address] [facility] [place] [address] Care Team Providers Care Grain Shipper Name Role Phone No Ref-Primary, Physician Primary Care Provider Mica Aguilar MD Unavailable [phone] Encounter Details Date Type Department Care [...] Info) Description 12/05/2023 2:15 PM CDT Appointment [facility] [place] [address] [facility] [address] [place] [address] Didi Daniel MD [address] [facility] [address] [place] [address] 12/05/2023 2:45 PM CDT Office Visit [facility] [place] [address] [place] [phone] Ddii Daniel MD [address] [facility] [address] [place] [address] 12/19/2023 11:00 AM CDT Appointment [facility] Maternal Medicine [place] [address] [place] [phone] Tomasa Dickens MD [address] [place] [address] [place] [address] 12/19/2023 11:30 AM CDT Office Visit [facility] Medicine [place] [address] [place] [phone] Tomasa Dickens MD [address] [place] [address] [place] [address] 12/26/2023 3:00 PM CDT Appointment [facility] Medicine [place] [address] [place] [phone] Tomasa Dickens MD [address] [place] [address] [place] [address] 12/26/2023 3:30 PM CDT Office Visit [facility] [place] [address] [place] [phone] Tomasa Dickens MD [address] [place] [address] [place] [address] 01/02/2024 2:15 PM CDT Appointment [facility] [place] [address] [place] [phone] Tomasa Dickens MD [address] [address] [place] [address] 01/02/2024 2:45 PM CDT Office Visit [facility] [place] [address] [place] [phone] Tomasa Dickens MD [address] [address] [place] [address] 01/09/2024 3:00 PM CDT Appointment [facility] M[facility] [place] [address] [place] [phone] Tomasa Dickens MD [address] [place] [address] 01/09/2024 3:30 PM CDT Office Visit [facility] Medicine [place] [address] [place] [phone] Tomasa Dickens MD [address] [place] [address] 01/16/2024 2:15 PM POTATO SORTER Appointment [facility] M[facility] Medicine [place] [address] [place] [phone] Tomasa Dickens MD [address] [place] [address] 01/16/2024 2:45 PM POTATO SORTER Office Visit [facility] M[facility] Medicine [place] [address] [place] [phone] Tomasa Dickens MD [address] [place], [place] [address] documented as of this encounter Visit Diagnoses Not on filedocumented in this encounter Care Teams Grain Shipper Relationship Specialty Start Date End Date No Ref-Primary, Physician PCP - General 07/22/23 Mica Aguilar MD [address] [facility] [address] [place], [place] [id number] Assigned OBGYN Provider 08/31/23 documented as of this encounter
--- OUTSIDE RECORDS SUMMARY | 2023-11-24 07:39 | XMS_ITS | Encounter Summary ---
Author Organization [place] Address [address] [facility] [place] [address] Care Team Providers Care Engineering Mechanic Name Role Phone No Ref-Primary, Physician Primary Care Provider Mica Aguilar MD Unavailable [phone] Reason for Visit * Reason Comments cerclage * Auth/Cert (Routine) Specialty Diagnoses / Procedures Referred By Contac t Referred To Contact darklight inspector Diagnoses Maternity*FERNANDO: 02/10/24*Mingo/Di Twins Cervical shortening affecting in second trimester Ur [facility] [address] [place] [address] Referral ID Status Reason Start Date Expiration Date Visits Re quested Visits Authorized [id number] 1 1 Encounter Details Date Type Department Care Team (Late st Contact Info) Description 09/27/2023 9:00 AM CDT - 09/27/2023 10:[address] [facility] [address] [place] [address] Heidi Swain MD [address] [facility] 400 [place] [address] Cerclage cervical Surgery Details Date/Time [...] Swain MD - 09/28/2023 9:30 AM CDT [facility] Discharge Summary Kyara Villegas Age: [age] year old Date of : 2000 Date of Admission: 09/26/2023 Date of Discharge: 09/28/23 Admitting Physician: Heidi Swain MD Discharge Physician: Heidi Swain MD Admission Diagnosis: - Mingo/di twin intrauterine at 20w3d - Cervical insufficiency by US and exam Discharge Diagnosis: - Mingo/di twin intrauterine at 20w5d - Cervical insufficiency [...] your medicines These medications were sent to [facility] [address] [place] [address], [facility] [address] acetaminophen 325 MG tablet Brief History of [...] cerclage was recommended and pt transferred to [facility] for further evaluation prior to planned procedure [...] unwell feeling Follow up: Follow up in [facility] clinic scheduled appointment this coming week [...] Take 1 tablet by mouth daily Reyna Stren MD Hydraulic Governor Assembler Resident, PGY-3 09/28/2023 9:35 AM Physician Attestation [...] puede myron comenzado el trabajo de parto. Lockhart significa que bravo tenido al menos 6 [...] simone, 2023 Versi??n del contenido: 14.0 ?? [employer]. Las instrucciones de cuidado fueron adaptadas bajo licencia por tian profesional de atenci??n m??dica. Si usted tiene preguntas sobre gilles afecci??n m??dica o sobre estas instrucciones, siempre preguntea tian profesional de kel. [employer] niega toda garant??a o responsabilidad por tian [...] Fetus B: FHR 140s Reyna Stern MD Hydraulic Governor Assembler Resident, PGY-3 09/28/2023 11:54 AM * Heidi [...] agreement with the plan. Reyna Stern MD Hydraulic Governor Assembler Resident, PGY-3 09/28/2023 9:14 AM Physician Attestation I saw and evaluated this patient prior to discharge. I discussed the patient with the resident/fellow and agree with plan of care as documented in the note. I personally reviewed vital signs, labs, imaging, and discussed the following plan with the patient, with the assistance of a brainer via iPad. . I personally spent 15 [...] Fetus 2: 135 bpm via bedside ultrasound [place]: No contractions overnight A/P: 22 year old [...] and Physical September 26, 2023 Kyara Villegas [id number] HPI Kyara Vlilegas is a 22 year old at 20w3d [...] cerclage was recommended and pt transferred to [facility] for further evaluation prior to planned procedure [...] physiologic discharge without blood on collected swabs [place]: quiet x20 min, plan to continue x2h [...] Abnormality Status --------- ------ Adult Type and Screen[[id number]] In process Please view results for these [...] Abnormality Status --------- ------ Extra Serum Separator Tu...[[id number]] In process Extra Green Top ([place]...[[id number]] In process Please view results for these tests on the individual orders. Imaging [facility] US 09/26/2023 Monochorionic diamniotic twin gestation [...] of Dr. Heidi Swain. Raven Sauer MD SEASONAL PACKAGE HANDLER PGY-3 09/26/2023 6:38 PM Physician Attestation I [...] instructions reviewed with patient and with ipad braider operator and patient states no questions. She is [...] pain that relieved with heat back Tylenol, [place] was quite. Patient tolerated food. Plan is [...] shortened cervix noted yesterday (09/25) at our [facility] clinic during her first comprehensive anatomy ultrasound measuring 8 mm. Subsequent pelvic examination revealed a visually dilated cervix at 1 cm and digital examination revealing cervix to be 1/50 and soft in consistency. She was recommended to go th [facility] for further evaluation. After counseling regarding these [...] Kyara Villegas Primary Care Provider:Heidi Diane Primary Clinic:[facility] Gestational Age: 20w3d Kyara Villegas presents [...] Info) Description 12/05/2023 2:15 PM CDT Appointment [facility] Maternal Medicine [place] [address] [facility] [address] [place] [phone] Didi Daniel MD [address] [address] 12/05/2023 2:45 PM CDT Office Visit [facility] Maternal Medicine [place] [address] [facility] [address] [place] [phone] Didi Daniel MD [address] [address] 12/19/2023 11:00 AM CDT Appointment [facility] Maternal Medicine [place] [address] [facility] [address] [place] [phone] Tomasa Dickens MD [address] [place] [address] [place] [address] 12/19/2023 11:30 AM CDT Office Visit [facility] Maternal Medicine [place] [address] [facility] [address] [place] [phone] Tomasa Dickens MD [address] [place] [address] [place], [place] [address] 12/26/2023 3:00 PM CDT Appointment [facility] Maternal Medicine [place] [address] [place] [phone] Tomasa Dickens MD [address] [address] [place] [address] 12/26/2023 3:30 PM CDT Office Visit [facility] Maternal Medicine [place] [address] [place] [phone] Tomasa Dickens MD [address] [place] [address] 01/02/2024 2:15 PM CDT Appointment [facility] Maternal Medicine [place] [address] [place] [phone] Tomasa Dickens MD [address] [address] [place] [address] 01/02/2024 2:45 PM CDT Office Visit [facility] Maternal Medicine [place] [address] [place] [phone] Tomasa Dickens MD [address] [place] [address] 01/09/2024 3:00 PM CDT Appointment [facility] Maternal Medicine [place] [address] [place] [phone] Tomasa Dickens MD [address] [place] [address] 01/09/2024 3:30 PM CDT Office Visit [facility] Maternal Medicine [place] [address] [place] [phone] Tomasa Dickens MD [address] [place], [place] [address] 01/16/2024 2:15 PM SEWER INSPECTOR Appointment [facility] Medicine [facility] [address] [facility] [address] [place] [phone] Tomasa Dickens MD [address] [place] [address] 01/16/2024 2:45 PM SEWER INSPECTOR Office Visit [place] [address] [facility] [address] [place] [phone] Tomasa Dickens MD [address] [place], [place] [address] documented as of this encounter Procedures Procedure [...] - MICRO GENERAL ORDERABLES [facility] Inf. Diseases Diag. Lab [address] [facility], [address] [place], [place] [phone] * (ABNORMAL) UA with Microscopic (09/26/2023 5:51 PM CDT) Color Urine Light Yellow Colorless, Straw, Light Yellow, Yellow 09/26/2023 6:37 PM CDT [facility] LAB[facility] Appearance Urine Clear Clear 09/26/19 24 6:37 PM CDT [facility] LAB[facility] Glucose Urine Negative Negative mg/dL 09/26/2023 6:37 PM CDT UR LAB[facility]ORY Bilirubin Urine Negative Negative 4 6:37 PM CDT UR LABORATORY Ketones Urine 40(A) Negative mg/dL 09/26/2023 6:37 PM CDT UR LABORATORY Specific [place] Urine 1.018 1.003 - 1.035 09/26/2023 6:37 [...] LABORATORY [facility] Lab [address] [facility], [address] [place] [phone] * Chlamydia trachomatis PCR (09/26/2023 5:50 PM CDT) Chlamydia trachomatis Negative Negative 09/27/2023 11:37 AM CDT [facility] Comment:A negative result by stunner and shackler mediated amplification does not preclude the presence of C. trachomatis infection because results are dependent on proper and adequate collection, absence of inhibitors and sufficient rRNA to be detected. Swab VAGINAL STRUCTURE / Unknown Non-blood Collection / Unknown 09/26/2023 5:50 PM CDT 09/26/2023 6:03 PM CDT Socorro Danielson MD LAB - MICRO GENERAL ORDERABLES [facility] Inf. Diseases Diag. Lab [address] [facility], Room [place] [phone] [place] [address] * Neisseria gonorrhoea PCR (09/26/2023 5:50 PM CDT) Neisseria gonorrhoeae Negative Negative 09/27/2023 11:37 AM CDT [facility] Comment:Negative for N. gono rrhoeae rRNA by stunner and shackler mediated amplification. A negative result by stunner and shackler mediated amplification does not preclude the presence of C. trachomatis infection because results are dependent on proper and adequate collection, absence of inhibitors and sufficient rRNA to be detected. Swab VAGINAL STRUCTURE / Unknown Non-blood Collection / Unknown 09/26/2023 5:50 PM CDT 09/26/2023 6:03 PM CDT Socorro Danielson MD LAB - MICRO GENERAL ORDERABLES Performing Organization Address [facility] Co de Phone Number [facility] Inf. Diseases Diag. Lab [address] [facility], Room [place] [phone] * (ABNORMAL) Wet prep (09/26/2023 5:50 PM CDT) Pathologist [facility] Trichomonas Absent Absent XIOMARA 09/26/2023 6:28 PM [...] LABORATORY [facility] [address] [facility], [address] * Extra Green Top ([place] Heparin) Tube (09/26/2023 5:15 PM CDT) Hold Specimen [facility] 09/26/2023 6:32 PM CDT UR LABORATORY Blood STRUCTURE OF RIGHT UPPER LIMB / Unknown Venipuncture / Unknown 09/26/2023 5:15 PM CDT 09/26/2023 5:25 PM CDT Heidi Swain MD LAB - BLOOD ORDERA BLES UR LABORATORY [facility] [address] [place] [address], [address] * Extra Serum Separator Tube (SST) (09/26/2023 5:15 PM CDT) Hold Specimen [facility] 09/26/2023 6:32 PM CDT UR LABORATORY Blood STRUCTURE OF RIGHT UPPER LIMB / Unknown Venipuncture / Unknown 09/26/2023 5:15 PM CDT 09/26/2023 5:24 PM CDT Heidi Swain MD LAB - BLOOD ORDERA BLES UR LABORATORY [facility] [address] [place] [address], Room [place] [phone] * Adult Type and Screen (09/26/2023 5:15 PM CDT) ABO/RH(D) A POS 09/26/2023 4:59 PM CDT UR BLOOD BANK Antibody Screen Negative Negative 09/26/2023 4:59 PM CDT UR BLOOD BANK SPECIMEN EXPIRATION DATE [id number] 09/26/2023 4:59 PM CDT UR BLOOD BANK Blood STRUCTURE OF RIGHT UPPER LIMB / Unknown Venipuncture / Unknown 09/26/2023 5:15 PM CDT 09/26/2023 5:20 PM CDT Isahaq Mohamed Jagjit MD LAB - BLOOD BANK TEST ORDER UR BLOOD BANK [facility] Blood Components Lab [address] [facility], [address] [place] [address] * (ABNORMAL) CBC with platelets (09/26/2023 [...] LABORATORY [facility] [address] [facility], [address] [place] [address] documented in this encounter Visit Diagnoses [...] met) 0858 ($Given - Provider: Ngozi Granados, FLAKITA) Continuous Medication Order 09/26/2023 09/27/2023 09/28/2023 lactated [...] Pre-procedure documented in this encounter Care Teams Engineering Mechanic Relationship Specialty Start Date End Date No Ref-Primary, Physician PCP - General 07/22/23 Mica Aguilar MD [address] [address] Assigned OBGYN Provider 08/31/23 documented as of this encounter
--- OUTSIDE RECORDS SUMMARY | 2023-11-24 07:39 | XMS_ITS | Encounter Summary ---
Author Organization [place] Address [address] [place] [address]. [place] [address] Care Team Providers Care Bus Driver/Monitor Name Role Phone No Ref-Primary, Physician Primary Care Provider Mica Aguilar MD Unavailable [phone] Encounter Details Date Type Department Care Team (Late st Contact Info) Description 09/26/2023 1:30 PM CDT Office Visit [facility] [place] [address] Lamar Griffith Social History Tobacco Use [...] Info) Description 12/05/2023 2:15 PM CDT Appointment [facility] [place] [address] [facility] [address] [place] [address] Didi Daniel MD [address] [facility] [address] [place] [address] 12/05/2023 2:45 PM CDT Office Visit [facility] [place] [address] [place] [address] Didi Daniel MD [address] [facility] [address] [place] [address] 12/19/2023 11:00 AM CDT Appointment [facility] Maternal Medicine [place] [address] [facility] [address] [place] [phone] Tomasa Dickens MD [address] [place] [address] 12/19/2023 11:30 AM CDT Office Visit [facility] Maternal Medicine [place] [address] [place] [phone] Tomasa Dickens MD [address] [place] [address] [place], [place] [address] 12/26/2023 3:00 PM CDT Appointment [facility] [place] [address] [place] [phone] Tomasa Dickens MD [address] [place] [address] [place] [address] 12/26/2023 3:30 PM CDT Office Visit [facility] [place] [address] [place] [phone] Tomasa Dickens MD [address] [address] [place] [address] 01/02/2024 2:15 PM CDT Appointment [facility] [place] [address] [place] [phone] Tomasa Dickens MD [address] [place] [address] 01/02/2024 2:45 PM CDT Office Visit [facility] [place] [address] [place] [phone] Tomasa Dickens MD [address] [place] [address] 01/09/2024 3:00 PM CDT Appointment [facility] [place] [address] [place] [phone] Tomasa Dickens MD [address] [place] [address] 01/09/2024 3:30 PM CDT Office Visit [facility] [place] [address] [place] [phone] Tomasa Dickens MD [address] [place] [address] 01/16/2024 2:15 PM BALER OPERATOR Appointment [facility] Maternal Medicine [place] [address] [place] [phone] Tomasa Dickens MD [address] [place] [address] 01/16/2024 2:45 PM BALER OPERATOR Office Visit [facility] Maternal Medicine [place] [address] [place] [phone] Tomasa Dickens MD [address] [place] [address] documented as of this encounter Visit Diagnoses Not on filedocumented in this encounter Care Teams Bus Driver/Monitor Relationship Specialty Start Date End Date No Ref-Primary, Physician PCP - General 07/22/23 Mica Aguilar MD [address] [place] [address] Assigned OBGYN Provider 08/31/23 documented as of this encounter
--- OUTSIDE RECORDS SUMMARY | 2023-11-24 07:39 | XMS_ITS | Encounter Summary ---
Author Organization [place] Address [address] [place] [address]. [place] [address] Care Team Providers Care Urology Teacher Name Role Phone No Ref-Primary, Physician Primary Care Provider Mica Aguilar MD Unavailable Reason for Visit * Auth/Cert (Routine) Specialty Diagnoses / Procedures Referred By Contac t Referred To Contact coroner/medical examiner Diagnoses Maternity*FERNANDO: 02/10/24*Yellow Medicine/Di Twins Cervical shortening affecting in second trimester Ur [facility] [address] [place] [address] Referral ID Status Reason Start Date Expiration Date Visits Re quested Visits Authorized [id number] 1 1 Encounter Details Date Type Department Care Team (Late st Contact Info) Description 09/27/2023 9:12 AM CDT Anesthesia Event [facility] [address] [place] [address] Agustina Dinh MD 420 [facility] [address] [place] [address] Chapo Rutherford MD [address] [place] [address] Anesthesia Record Procedure Summary Procedure [...] Time: 09/27/2023 9:20 AM FOR [facility] ([facility]) ONLY: Pain Team Contact information: please page the Pain Team Via [employer].Search Pain. During daytime hours, please page the [...] and realistic alternatives discussed. Questions answered and patient/freight representative(s) expressed understanding. - Discussed: - Discussed with: Patient, Combination Worker Postoperative Care Pain management: Multi-modal analgesia. PONV [...] PM CDT Appointment [facility] [place] [address] [place] [phone] Didi Daniel MD [address] [place] [address] 12/05/2023 2:45 PM CDT Office Visit [facility] [place] [address] [place] [phone] Didi Daniel MD [address] [place] [address] 12/19/2023 11:00 AM CDT Appointment [facility] [place] [address] [place] [phone] Tomasa Dickens MD [address] [place] [address] 12/19/2023 11:30 AM CDT Office Visit [facility] [place] [address] [place] [phone] Tomasa Dickens MD [address] [place] [address] [place] [address] 12/26/2023 3:00 PM CDT Appointment [facility] [place] [address] [place] [phone] Tomasa Dickens MD [address] [place] [address] 12/26/2023 3:30 PM CDT Office Visit [facility] [place] [address] [place] [phone] Tomasa Dickens MD [address] [place] [address] 01/02/2024 2:15 PM CDT Appointment [facility] [place] [address] [place] [phone] Tomasa Dickens MD [address] [place] [address] [place] [address] 01/02/2024 2:45 PM CDT Office Visit [facility] [place] [address] [place] [phone] Tomasa Dickens MD [address] [place] [address] [place] [address] 01/09/2024 3:00 PM CDT Appointment [facility] [place] [address] [place] [phone] Tomasa Dickens MD [address] [place] [address] 01/09/2024 3:30 PM CDT Office Visit [facility] [place] [address] [place] [phone] Tomasa Dickens MD [address] [place], [place] [address] 01/16/2024 2:15 PM CAN DOFFER [facility]oint[facility] [address] [place] [phone] Tomasa Dickens MD [address] [place], [place] [address] 01/16/2024 2:45 PM CAN DOFFER Office Visit [place] [address] [facility] [address] [place] [phone] Tomasa Dickens MD [address] [place], [place] [phone] documented as of this encounter Procedures Procedure Name Priority Date/Time Associated Diagnosis Comments ANE SPINAL BLOCK FORM Routine 09/27/2023 9:20 AM CDT documented in this encounter Results * Spinal Block (09/27/2023 9:20 AM CDT) Narrative hCapo Rutherford MD - 09/27/2023 9:20 AM CDT [...] Time: 09/27/2023 9:20 AM FOR [facility] ([facility]) ONLY: ?? Pain Team Contact information: please page the Pain Team Via [employer]. Search Pain. During daytime hours, please page the attending first. At night please page the resident first. Agustina Dinh MD [place] [facility]HES[facility] documented in this encounter Visit Diagnoses [...] mcg documented in this encounter Care Teams Urology Teacher Relationship Specialty Start Date End Date No Ref-Primary, Physician PCP - General 07/22/23 Mica Aguilar MD [address] [address] Assigned OBGYN Provider 08/31/23 documented as of this encounter
--- OUTSIDE RECORDS SUMMARY | 2023-11-24 07:39 | XMS_ITS | Encounter Summary ---
Author Organization [place] Address [address] [facility] [place] [address] Care Team Providers Care Editor Continuity And Script Name Role Phone No Ref-Primary, Physician Primary [...] CDT Appointment [facility] [place] [address] [place] [address] Didi Daniel MD [address] [facility] [address] [place] [address] 12/05/2023 2:45 PM CDT Office Visit [facility] [place] [address] [place] [address] Didi Daniel MD [address] [facility] [address] [place] [address] 12/19/2023 11:00 AM CDT Appointment [facility] [place] [address] [place] [phone] Tomasa Dickens MD [address] [place] [address] 12/19/2023 11:30 AM CDT Office Visit [facility] [place] [address] [place] [phone] Tomasa Dickens MD [address] [place] [address] 12/26/2023 3:00 PM CDT Appointment [facility] [place] [address] [place] [phone] Tomasa Dickens MD [address] [place] [address] 12/26/2023 3:30 PM CDT Office Visit [facility] [place] [address] [place] [phone] Tomasa Dickens MD [address] [place] [address] 01/02/2024 2:15 PM CDT Appointment [facility] [place] [address] [place] [phone] Tomasa Dickens MD [address] [place] [address] 01/02/2024 2:45 PM CDT Office Visit [facility] [place] [address] [facility] [address] [place] [phone] Tomasa Dickens MD [address] [place] [address] 01/09/2024 3:00 PM CDT Appointment [facility] [place] [address] [facility] [address] [place] [phone] Tomasa Dickens MD [address] [place], [place] [address] 01/09/2024 3:30 PM CDT Office Visit [facility] [place] [address] [facility] [address] [place] [phone] Tomasa Dickens MD [address] [place] [address] [place], [place] [address] 01/16/2024 2:15 PM STOCK PREPARATION SUPERVISOR Appointment [facility] [place] [address] [facility] [address] [place] [phone] Tomasa Dickens MD [address] [place] [address] 01/16/2024 2:45 PM STOCK PREPARATION SUPERVISOR Office Visit [facility] [place] [address] [facility] [address] [place] [phone] Tomasa Dickens MD [address] [place] [address] documented as of this encounter Visit Diagnoses Not on filedocumented in this encounter Care Teams Editor Continuity And Script Relationship Specialty Start Date End Date No Ref-Primary, Physician PCP - General 07/22/23 documented as of this encounter
--- OUTSIDE RECORDS SUMMARY | 2023-11-24 07:39 | XMS_ITS | Encounter Summary ---
Author Organization [place] Address [facility] [place] [address] Care Team Providers Care Cigarette Lighter Repairer Name Role Phone No Ref-Primary, Physician Primary Care Provider Mica Aguilar MD Unavailable [phone] Reason for Referral * Diagnostic Imaging Ultrasound (Routine) - Pending Review Specialty Diagnoses / Procedures Referred By Contac t Referred To Contact Radiology. 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 Procedures MFM Twins US Comprehensive F/U Mica Aguilar MD [address] [place] [address] Referral ID Status Reason Start Date Expiration Date V isits Requested Visits Authorized [id number] Pending Review 08/08/2023 08/07/2024 1 1 Encounter Details Date Type Department Care Team (Latest Contact Info) Description 09/30/2023 8:45 AM CDT - 09/30/2023 11:59 PM CDT Hospital Encounter [facility] Medicine [facility] [address] [facility] [address] [place] [phone] Mica Aguilar MD [address] [place] [address] Case Berrios MD [address] [place] [address] Monochorionic diamniotic twin gestation in [...] CDT Appointment [facility] Medicine [facility] [address] [facility] [address] [place] [phone] Didi Daniel MD 420 [facility] [address] [place] [address] 12/05/2023 2:45 PM CDT Office Visit [facility] [place] [address] [facility] [address] [place] [phone] Didi Daniel MD [address] [facility] [address] [place] [address] 12/19/2023 11:00 AM CDT Appointment [facility] [place] [address] [facility] [address] [place] [phone] Raya Dickens MD [address] [place] [address] 12/19/2023 11:30 AM CDT Office Visit [facility] [place] [address] [facility] [address] [place] [phone] Raya Dickens MD [address] [place], [place] [address] 12/26/2023 3:00 PM CDT Appointment [facility] [place] [address] [facility] [address] [place] [phone] Raya Dickens MD [address] [place], [place] [address] 12/26/2023 3:30 PM CDT Office Visit [facility] [place] [address] [facility] [address] [place] [phone] Raya Dickens MD [address] [place], [place] [address] 01/02/2024 2:15 PM CDT Appointment [facility] [place] [address] [place] [phone] Raya Dickens MD [address] [place] [address] 01/02/2024 2:45 PM CDT Office Visit [facility] [place] [address] [facility] [address] [place] [phone] Raya Dickens MD [address] [place] [address] 01/09/2024 3:00 PM CDT Appointment [facility] [place] [address] [facility] [address] [place] [phone] Raya Dickens MD [address] [place] [address] 01/09/2024 3:30 PM CDT Office Visit [facility] [place] [address] [facility] [address] [place] [phone] Raya Dickens MD [address] [place] [address] 01/16/2024 2:15 PM PLASTIC BATTERY ASSEMBLER Appointment [facility] [place] [address] [facility] [address] [place] [phone] Raya Dickens MD [address] [place] [address] 01/16/2024 2:45 PM PLASTIC BATTERY ASSEMBLER Office Visit [facility] [address] [address] [place] [address] Raya Dickens MD [address] [facility] [address] [place] [address] documented as of this encounter [...] Narrative 09/30/2023 10:07 AM CDT ? Surveillance US ----- Pat. Name: KRISTYN MISHRA ? Study Date: ??09/30/2023 9:11am Pat. NO: ??[id number] ?Referring ??MD: RAYA SHAH Site: ? Field Radio Operator: [address] RDMS : ??2000 ?Age: ?? [...] MISHRA Study Date: 09/30/2023 9:11am Pat. NO: [id number] Referring MD: RAYA SHAH Site: Field Radio Operator: [address] RDMS : 2000 Age: 22 ----- INDICATION ----- Monochorionic, Diamniotic Twin gestation. Elevated Dopplers on Twin B. METHOD ----- Transabdominal ultrasound examination. View: Sufficient ----- Twin . Number of fetuses: 2. Monochorionic-diamniotic DATING ----- DateDetailsGest. age FERNANDO LMP 04/29/2023ycle: irregular cycle22 w + 0 d 02/03/2024 [...] twin anemia polycythemia syndrome. 

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
--- OUTSIDE RECORDS SUMMARY | 2023-11-24 07:39 | XMS_ITS | Encounter Summary ---
Author Organization [place] Address [address] [place] [address]. [place] [address] Care Team Providers Care Drywall Sander Name Role Phone No Ref-Primary, Physician Primary Care Provider Mica Aguilar MD Unavailable [phone] Reason for Referral * Diagnostic Imaging Ultrasound (Routine) - Pending Review Specialty Diagnoses / Procedures Referred By Contac t Referred To Contact Radiology. 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 Procedures MFM Twins Mica Jain MD [address] [place] [address] Referral ID Status Reason Start Date Expiration Date V isits Requested Visits Authorized [id number] Pending Review 08/08/2023 08/07/2024 1 1 Reason for Visit * Diagnostic Imaging Ultrasound (Routine) - Pending Review Specialty Diagnoses / Procedures Referred By Contac t Referred To Contact Radiology. 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 Procedures MFM Twins Mica Jain MD [address] [place] [address] Referral ID Status Reason Start Date Expiration Date V isits Requested Visits Authorized [id number] Pending Review 08/08/2023 08/07/2024 1 1 Encounter Details Date Type Department Care Team (Latest Contact Info) Description 09/26/2023 1:22 PM CDT - 09/26/2023 4:42 PM CDT Hospital Encounter [facility] Maternal Medicine [facility] [address] [facility] [address] [place] [phone] Mica Aguilar MD [address] [place] [address] Angelica Wright MD [address] [place] [address] Monochorionic diamniotic twin gestation in [...] Info) Description 12/05/2023 2:15 PM CDT Appointment [facility] Maternal Medicine [facility] [address] [facility] [address] [place] [phone] Didi Daniel MD [address] [facility] [address] [place] [address] 12/05/2023 2:45 PM CDT Office Visit [facility] [place] [address] [place] [phone] Didi Daniel MD [address] [facility] [address] [place] [address] 12/19/2023 11:00 AM CDT Appointment [facility] Maternal Medicine [place] [address] [place] [phone] Raya Dickens MD [address] [place], [place] [address] 12/19/2023 11:30 AM CDT Office Visit [facility] Maternal Medicine [place] [address] [place] [phone] Raya Dickens MD [address] [place], [place] [address] 12/26/2023 3:00 PM CDT Appointment [facility] Maternal Medicine [place] [address] [place] [phone] Raya Dickens MD [address] [place] [address] 12/26/2023 3:30 PM CDT Office Visit [facility] [place] [address] [place] [phone] Raya Dickens MD [address] [place] [address] 01/02/2024 2:15 PM CDT Appointment [facility] Maternal Medicine [place] [address] [place] [phone] Raya Dickens MD [address] [place] [address] 01/02/2024 2:45 PM CDT Office Visit [facility] [place] [address] [place] [phone] Raya Dickens MD [address] [place] [address] 01/09/2024 3:00 PM CDT Appointment [facility] Maternal Medicine [place] [address] [place] [phone] Raya Dickens MD [address] [place] [address] 01/09/2024 3:30 PM CDT Office Visit [facility] Maternal Medicine [place] [address] [place] [phone] Raya Dickens MD [address] [place] [address] 01/16/2024 2:15 PM VALVE STEAMER Appointment [facility] Maternal Medicine [place] [address] [place] [phone] Raya Dickens MD [address] [place] [address] 01/16/2024 2:45 PM VALVE STEAMER Office Visit [facility] Maternal Medicine [place] [address] [place] [phone] Raya Dickens MD [address] [place] [address] documented as of this encounter Procedures Procedure [...] PM CDT ?Comprehensive ----- Pat. Name: ROLANDO VILLEGAS KYARA ? Study Date: ??09/26/2023 1:31pm Pat. NO: ??[id number] ?Referring ??MD: RAYA SHAH Site: ? Social Insurance Administrator: Christopher Street RDMS : ??2000 ?Age: ?? [...] lb 11 ? oz EFW by ?Hadlock ([id number]) EFW discordance ?13.8 ?% Head / Face / Neck Biometry: Chief Lock Tender Operator ?5.3 ? mm CM ? 2.4 [...] lb 13 ? oz EFW by ?Hadlock ([id number]-UB-FL) EFW discordance ?13.8 ?% Head / Face / Neck Biometry: Chief Lock Tender Operator ?6.9 ? mm CM ? 4.3 [...] view. RVOT view. LVOT view. 3-vessel view. 8-kjqpje-egauaeg view. Situs. Aortic arch view. Bicaval view. [...] view. RVOT view. LVOT view. 3-vessel view. 0-cerqih-qgpwakv view. Situs. Aortic arch view. Bicaval view. [...] bpm Mid Cerebral Artery: normal PS ? . ?cm/s PS ? 0.81 ?MoM MATERNAL STRUCTURES [...] the patient (reviewing medical records/tests), in direct myvo-hw-zlty contact with the patient during her visit with the majority spent counseling and discussing the plan of care and documenting the visit in the electronic medical record. Please see note for details. Procedure Note Angelica Wright MD - 10/08/2023 Comprehensive ----- Pat. Name: KYARA MISHRA Study Date: 09/26/2023 1:[facility] Pat. NO: [id number] Referring MD: RAYA SHAH Site: Social Insurance Administrator: Christopher Srteet RDMS : 2000 Age: 22 ----- INDICATION [...] EFW (lb,oz) 0 lb 11oz EFW by Hadlock([id number]-[id number]-MH-FL) EFW discordance 13.8% Head / Face / Neck Biometry: Chief Lock Tender Operator 5.3mm CM 2.4mm Nasal bone 5.9mm Fetus 2: BIOMETRY ----- BPD 46.2mm 20w 0dHadlock OFD 62.0mm 20w 0dNicolaides HC 172.9mm 19w 6dHadlock Cerebellum tr 19.7mm 18w 6dNicolaides Nuchal fold 4.4mm AC 155.0mm 20w 5d 52%Hadlock Femur 34.9mm 21w 0dHadlock Humerus 30.9mm 20w 2dJeanty Weight Calculation: EFW 371g 59%Hadlock EFW (lb,oz) 0 lb 13oz EFW by Hadlock(EHZ-AX-CL-FL) EFW discordance 13.8% Head / Face / Neck Biometry: Chief Lock Tender Operator 6.9mm CM 4.3mm Nasal bone 5.8mm Fetus 1: ANATOMY ----- The following structures appear normal: Head / Neck Cranium. Head size. Head shape.Lateral ventricles. Choroid plexus. Midline falx. Cavum septi pellucidi.Cerebellum. Cisterna magna. Parenchyma. Thalami. Vermis. Neck. Nuchal fold. Face Lips. Profile. Nose. Maxilla.Mandible. Orbits. Lens. Heart / Thorax 4-chamber view. RVOT view. LVOT view.3-vessel view. 0-ajmhxn-sknevll view. Situs. Aortic arch view. Bicavalview. Ductal [...] 4-chamber view. RVOT view. LVOT view.3-vessel view. 6-qnvmzl-ucgjuqw view. Situs. Aortic arch view. Bicavalview. Ductal [...] see the patient (reviewing medical records/tests), in rdapytpjkx-hj-vyjh contact with the patient during her visit [...] length of 8 mm. Mica Aguilar MD [facility] US ORDERABLE S documented in this encounter Visit Diagnoses Diagnosis 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 documented in this encounter Care Teams Drywall Sander Relationship Specialty Start Date End Date No Ref-Primary, Physician PCP - General 07/22/23 Mica Aguilar MD [address] [place] [address] Assigned OBGYN Provider 08/31/23 documented as of this encounter
--- OUTSIDE RECORDS SUMMARY | 2023-11-24 07:39 | XMS_ITS | Encounter Summary ---
Author Organization [place] Address [address] [facility] [place] [address] Care Team Providers Care Woodworking Shop Laborer Name Role Phone No Ref-Primary, Physician Primary Care Provider Reason for Visit * Reason Onset Date Comments Results 08/25/2023 Expanded Carrier Screening with her partner Encounter Details Date Type Department Care Team (Late st Contact Info) Description 08/25/2023 Telephone [facility] Maternal Medicine [facility] [address] [place] [address] Nelsy Diaz, [address] [place] [address] [address] [place] [address] Results (Expanded Carrier Screening with [...] Info) Description 12/05/2023 2:15 PM CDT Appointment [facility] Maternal Medicine [facility] [address] [place] [address] Didi Daniel MD [address] [facility] [address] [place] [address] 12/05/2023 2:45 PM CDT Office Visit [facility] [place] [address] [place] [address] Didi Daniel MD [address] [facility] [address] [place] [address] 12/19/2023 11:00 AM CDT Appointment [facility] Maternal Medicine [place] [address] [place] [phone] Tomasa Dickens MD [address] [place] [address] [place], [place] [address] 12/19/2023 11:30 AM CDT Office Visit [facility] Maternal Medicine [place] [address] [place] [phone] Tomasa Dickens MD [address] [place] [address] [place] [address] 12/26/2023 3:00 PM CDT Appointment [facility] Maternal Medicine [place] [address] [place] [phone] Tomasa Dickens MD [address] [place] [address] [place], [place] [address] 12/26/2023 3:30 PM CDT Office Visit [facility] Maternal Medicine [place] [address] [place] [phone] Tomasa Dickens MD [address] [place] [address] [place], [place] [address] 01/02/2024 2:15 PM CDT Appointment [facility] Medicine [place] [address] [facility] [address] [place] [phone] Tomasa Dickens MD [address] [place] [address] [place] [address] 01/02/2024 2:45 PM CDT Office Visit [facility] Maternal Medicine [place] [address] [facility] [address] [place] [phone] Tomasa Dickens MD [address] [place] [address] 01/09/2024 3:00 PM CDT Appointment [facility] Medicine [place] [address] [facility] [address] [place] [phone] Tomasa Dickens MD [address] [place] [address] 01/09/2024 3:30 PM CDT Office Visit [facility] Maternal Medicine [place] [address] [facility] [address] [place] [phone] Tomasa Dickens MD [address] [place] [address] 01/16/2024 2:15 PM ORACLE ERP DEVELOPER Appointment [facility] Medicine [place] [address] [facility] [address] [place] [phone] Tomasa Dickens MD [address] [place] [address] 01/16/2024 2:45 PM ORACLE ERP DEVELOPER Office Visit [facility] Maternal Medicine [facility] [address] [facility] [address] [place] [address] Tomasa Dickens MD [address] [facility] [address] [place] [address] documented as of this encounter Visit Diagnoses Not on filedocumented in this encounter Care Teams Woodworking Shop Laborer Relationship Specialty Start Date End Date No Ref-Primary, Physician PCP - General 07/22/23 documented as of this encounter
--- OUTSIDE RECORDS SUMMARY | 2023-11-24 07:39 | XMS_ITS | Encounter Summary ---
Author Organization [place] Address [facility] [place] [address] Care Team Providers Care Bobbin Dumper Name Role Phone No Ref-Primary, Physician Primary Care Provider Mica Aguilar MD Unavailable [phone] Reason for Visit * Reason Comments Ultrasound L2-Ada/Di twins Encounter Details Date Type Department Care Team (Latest Contact Info) Description 09/26/2023 2:45 PM CDT Office Visit [facility] Medicine [facility] [place] [address] [facility] [address] [place] [address] Mica Aguilar MD [address] [facility] [address] [place] [address] Angelica Wright MD [address] [place] [address] Monochorionic diamniotic twin gestation in [...] this encounter Nursing Notes * Blank Juarez, FLAKITA - 09/26/2023 2:45 PM CDT Patient presents to [facility] for L2 at 20w3d due to M/D twins. Positive movement x2. Denies LOF, vaginal bleeding or cramping/contractions. SBAR given to [facility] MD, see their note in Epic. documented in this encounter Plan of Treatment Upcoming Encounters Date Type Department Care Team (Late st Contact Info) Description 12/05/2023 2:15 PM CDT Appointment [facility] Medicine Center [place] [address] [place] [phone] Didi Daniel MD [address] [place] [address] 12/05/2023 2:45 PM CDT Office Visit [facility] [place] [address] [place] [phone] Didi Dainel MD [address] [place] [address] 12/19/2023 11:00 AM CDT Appointment [facility] [place] [address] [place] [phone] Tomasa Dickens MD [address] [place] [address] [place] [address] 12/19/2023 11:30 AM CDT Office Visit [facility] [place] [address] [place] [phone] Tomasa Dickens MD [address] [place] [address] [place] [address] 12/26/2023 3:00 PM CDT Appointment [facility] M[facility] Medicine [place] [address] [place] [phone] Tomasa Dickens MD [address] [place] [address] [place] [address] 12/26/2023 3:30 PM CDT Office Visit [facility] M[facility] Medicine [place] [address] [place] [phone] Tomasa Dickens MD [address] [place] [address] [place], [place] [address] 01/02/2024 2:15 PM CDT Appointment [facility] M[facility] Medicine [place] [address] [place] [phone] Tomasa Dickens MD [address] [place] [address] [place], [place] [address] 01/02/2024 2:45 PM CDT Office Visit [facility] [place] [address] [place] [phone] Tomasa Dickens MD [address] [place] [address] [place] [address] 01/09/2024 3:00 PM CDT Appointment [facility] [place] [address] [facility] [address] [place] [phone] Tomasa Dickens MD [address] [place] [address] 01/09/2024 3:30 PM CDT Office Visit [facility] [place] [address] [facility] [address] [place] [phone] Tomasa Dickens MD [address] [place] [address] [place] [address] 01/16/2024 2:15 PM GLASS CYLINDER FLANGER Appointment [place] [address] [facility] [address] [place] [phone] Tomasa Dickens MD [address] [place], [place] [address] 01/16/2024 2:45 PM GLASS CYLINDER FLANGER Office Visit [place] [address] [facility] [address] [place] [phone] Tomasa Dickens MD [address] [place] [address] documented as of this encounter Visit Diagnoses Diagnosis 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
== END 2023-11-20 08:24 | disposition home or self-care (01) ==
PROVIDERS: Visit Provider Obstetrics & Gynecology
DX: Z34.02 Encounter for supervision of normal first pregnancy, second trimester (principal)
CPT/HCPCS: 82951; 82952

== ENCOUNTER 2023-12-09 13:37 | Outpatient (CLI) | payer BC, SELFPAY ==
--- OUTSIDE RECORDS SUMMARY | 2023-12-09 13:43 | XMS_ITS | Encounter Summary ---
Author Organization [place] Address [address] [facility] [place] [address] Care Team Providers Care Operating Room Assistant Name Role Phone No Ref-Primary, Physician Primary Care Provider Mica Aguilar MD Unavailable [phone] Reason for Visit * Reason Comments Ultrasound RL2/MCA/UAR- M/D MYRTLE WTH, A: EFW 11% Encounter Details Date Type Department Care Team (Latest Contact Info) Description 11/21/2023 10:45 AM CDT Office Visit [facility] Medicine [facility] [place] [address] [facility] [address] [place] [address] Tomasa Dickens MD [address] [place] [address] Nitin Morris MD [address] [place] [address] Monochorionic diamniotic twin gestation in [...] Aguillon RN - 11/21/2023 10:45 AM CDT neon light installer used via IPAD during MFM appointment. Patient reports movement x2, denies pain, contractions, leaking of fluid, or bleeding. Reports passing GCT in [place]. Patient denies headache, visual changes, nausea/vomiting, epigastric pain related to preeclampsia. SBAR given to MFM MD, see their note in Epic. documented in this encounter Plan of Treatment Upcoming Encounters Date Type Department Care Team (Late st Contact Info) Description 12/19/2023 11:00 AM CDT Appointment [facility] [place] [address] [facility] [address] [place] [address] Tomasa Dickens MD [address] [place] [address] Nitin Morris MD [address] [place] [address] [place], [place] [address] 12/19/2023 11:30 AM CDT Office Visit [facility] [place] [address] [place] [address] Tomasa Dickens MD [address] [place] [address] [place] [address] Nitin Morris MD [address] [place] [place], [place] [address] 12/26/2023 3:00 PM CDT Appointment [facility] Maternal Medicine [place] [address] [place] [phone] Tomasa Dickens MD [address] [place] [address] [place], [place] [address] 12/26/2023 3:30 PM CDT Office Visit [facility] Maternal Medicine [place] [address] [place] [phone] Tomasa Dickens MD [address] [address] [place], [place] [address] 01/02/2024 2:15 PM CDT Appointment [facility] M[facility] Medicine [place] [address] [place] [phone] Tomasa Dickens MD [address] [place], [place] [address] 01/02/2024 2:45 PM CDT Office Visit [facility] Maternal Medicine [place] [address] [place] [phone] Tomasa Dickens MD [address] [place], [place] [address] 01/09/2024 3:00 PM CDT Appointment [facility] Medicine [place] [address] [facility] [address] [place] [phone] Tomasa Dickens MD [address] [place] [address] 01/09/2024 3:30 PM CDT Office Visit [facility] Medicine [place] [address] [facility] [address] [place] [phone] Tomasa Dickens MD [address] [place] [address] 01/16/2024 2:15 PM SEED ANALYSIS LABORATORY ASSISTANT Appointment [facility] Medicine [place] [address] [facility] [address] [place] [phone] Tomasa Dickens MD [address] [place], [place] [address] 01/16/2024 2:45 PM SEED ANALYSIS LABORATORY ASSISTANT Office Visit [facility] Medicine [place] [address] [facility] [address] [place] [phone] Tomasa Dickens MD [address] [place] [address] documented as of this encounter Visit Diagnoses Diagnosis 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- Primary documented in this encounter Care Teams Operating Room Assistant Relationship Specialty Start Date End Date No Ref-Primary, Physician PCP - General 07/22/23 Mica Aguilar MD [address] [place] [address] Assigned OBGYN Provider 08/31/23 documented as of this encounter
--- OUTSIDE RECORDS SUMMARY | 2023-12-09 13:43 | XMS_ITS | Encounter Summary ---
Author Organization [place] Address [address] [facility] [place] [address] Care Team Providers Care Consulting Database Administrator Name Role Phone No Ref-Primary, Physician Primary Care Provider iMca Aguilar MD Unavailable [phone] Encounter Details Date Type Department Care [...] Info) Description 12/19/2023 11:00 AM CDT Appointment [facility] Medicine [facility] [place] [address] [facility] [address] [place] [address] Tomasa Dickens MD [address] [place], [place] [address] Nitin Morris MD [address] [place] [address] 12/19/2023 11:30 AM CDT Office Visit [facility] Medicine Center [place] [address] [place] [phone] Tomasa Dickens MD [address] [place] [address] Nitin Morris MD [address] [place] [address] 12/26/2023 3:00 PM CDT Appointment [facility] Maternal Medicine [place] [address] [place] [phone] Tomasa Dickens MD [address] [place] [address] 12/26/2023 3:30 PM CDT Office Visit [facility] Maternal Medicine [place] [address] [place] [phone] Tomasa Dickens MD [address] [place] [address] 01/02/2024 2:15 PM CDT Appointment [facility] Maternal Medicine [place] [address] [place] [phone] Tomasa Dickens MD [address] [place] [address] [place] [address] 01/02/2024 2:45 PM CDT Office Visit [facility] Maternal Medicine [place] [address] [place] [phone] Tomasa Dickens MD [address] [place] [address] 01/09/2024 3:00 PM CDT Appointment [facility] Medicine [place] [address] [facility] [address] [place] [phone] Tomasa Dickens MD [address] [place] [address] 01/09/2024 3:30 PM CDT Office Visit [facility] [place] [address] [facility] [address] [place] [phone] Tomasa Dickens MD [address] [place], [place] [address] 01/16/2024 2:15 PM AUTO PHONE INSTALLER Appointment [facility] Medicine [place] [address] [facility] [address] [place] [phone] Tomasa Dickens MD [address] [place] [address] 01/16/2024 2:45 PM AUTO PHONE INSTALLER Office Visit [facility] Medicine [place] [address] [facility] [address] [place] [phone] Tomasa Dickens MD [address] [place], [place] [address] documented as of this encounter Visit Diagnoses Not on filedocumented in this encounter Care Teams Consulting Database Administrator Relationship Specialty Start Date End Date No Ref-Primary, Physician PCP - General 07/22/23 Mica Aguilar MD [address] [address] [place] [address] Assigned OBGYN Provider 08/31/23 documented as of this encounter
--- OUTSIDE RECORDS SUMMARY | 2023-12-09 13:43 | XMS_ITS | Encounter Summary ---
Author Organization [place] Address [facility] [place] [address] Care Team Providers Care Gang Mower Operator Name Role Phone No Ref-Primary, Physician Primary Care Provider Mica Aguilar MD Unavailable Reason for Visit * Reason Comments Ultrasound RL2/UAR/MCA-mono/di twins, TTTS check Encounter Details Date Type Department Care Team (Late st Contact Info) Description 12/05/2023 2:45 PM CDT Office Visit [facility] M[facility] Medicine [facility] [place] [address] [facility] [address] [place] [address] Didi Daniel MD [address] [facility] 395 [place], [place] [address] 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 [...] as of this encounter Progress Notes * Didi Daniel MD - 12/05/2023 2:45 PM CDT The patient was seen for an ultrasound in the [facility]- [facility] Center today. For a detailed report of the ultrasound examination, please see the ultrasound report which can be found under the imaging tab. If you have questions regarding today's evaluation or if we can be of further service, please contact the Maternal- Medicine Center. Didi Daniel MD Maternal Medicine documented in this encounter Nursing Notes * Eboni Spencer RN - 12/05/2023 2:45 PM CDT Kyara presents to [facility] for TTTS check. Kosovan interpter used for visit today via IPAD dredge lever operator ID#[id number]. Patient reports good movement, denies contractions, leaking of fluid, or bleeding. SBAR given to [facility] , see their note in Epic. documented in this encounter Plan of Treatment Upcoming Encounters Date Type Department Care Team (Late st Contact Info) Description 12/19/2023 11:00 AM CDT Appointment [place] [address] [facility] [address] [place] [phone] Tomasa Dickens MD [address] [place], [place] [address] Nitin Morris MD [address] [place], [place] [address] 12/19/2023 11:30 AM CDT Office Visit [place] [address] [facility] [address] [place] [phone] Tomasa Dickens MD [address] [place], [place] [address] Nitin Morris MD [address] [place] [address] 12/26/2023 3:00 PM CDT Appointment [facility] [place] [address] [place] [phone] Tomasa Dickens MD [address] [place] [address] 12/26/2023 3:30 PM CDT Office Visit [facility] Maternal Medicine [place] [address] [place] [phone] Tomasa Dickens MD [address] [place] [address] 01/02/2024 2:15 PM CDT Appointment [facility] Maternal Medicine [place] [address] [place] [phone] Tomasa Dickens MD [address] [place] [address] 01/02/2024 2:45 PM CDT Office Visit [facility] Maternal Medicine [place] [address] [place] [phone] Tomasa Dickens MD [address] [place], [place] [address] 01/09/2024 3:00 PM CDT Appointment [facility] Maternal Medicine [place] [address] [place] [phone] Tomasa Dickens MD [address] [place] [address] 01/09/2024 3:30 PM CDT Office Visit [facility] Maternal Medicine [facility] [address] [place] [phone] Tomasa Dickens MD [address] [place] [address] 01/16/2024 2:15 PM HEDDLER TIER Appointment [facility] Maternal Medicine [place] [address] [facility] [address] [place] [phone] Tomasa Dickens MD [address] [place] [address] 01/16/2024 2:45 PM HEDDLER TIER Office Visit [facility] Maternal Medicine [facility] [address] [place] [phone] Tomasa Dickens MD [address] [place], [place] [address] documented as of this encounter Visit Diagnoses Diagnosis 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- Primary documented in this encounter Care Teams Gang Mower Operator Relationship Specialty Start Date End Date No Ref-Primary, Physician PCP - General 07/22/23 Mica Aguilar MD [address] [place], [place] [address] Assigned OBGYN Provider 08/31/23 documented as of this encounter
--- OUTSIDE RECORDS SUMMARY | 2023-12-09 13:43 | XMS_ITS | Referral Summary ---
Author Organization [place] Address [facility] 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 Role Phone No Ref-Primary, Physician Primary Care Provider Vanita Lin MD Unavailable [phone] Encounters Date Type Department Care Team Description 12/05/2023 Travel 12/05/2023 2:45 PM CDT Office Visit [facility] Maternal Medicine [facility] [address] [facility] [address] [place] [address] Didi Daniel MD 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) 12/05/2023 1:58 PM CDT - 12/05/2023 11:59 PM CDT Hospital Encounter [facility] Medicine [facility] [address] [place] [address] Didi Daniel MD 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 Discharge Disposition: Home or Self Care 11/21/2023 Travel 11/21/2023 10:45 AM CDT Office Visit [facility] Maternal Medicine [facility] [address] [place] [address] Raya Dickesn MD Nashif, Sereen, MD 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) 11/21/2023 9:59 AM CDT - 11/21/2023 11:59 PM CDT Hospital Encounter [facility] Maternal Medicine [place] [address] [place] [address] Raya Dickens MD Nashif, Sereen, MD 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 Discharge Disposition: Home or Self Care 11/07/2023 Travel 11/07/2023 2:00 PM CDT Office Visit [facility] Maternal Medicine [place] [address] [place] [address] Angelica Wright MD 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 (Primary Dx) 11/07/2023 1:01 PM CDT - 11/07/2023 11:59 PM CDT Hospital Encounter [facility] Medicine [place] [address] [place] [address] Angelica Wright MD 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 Discharge Disposition: Home or Self Care 10/24/2023 Travel 10/24/2023 2:45 PM CDT Office Visit [facility] Medicine [place] [address] [place] [address] Angelica Wright MD Nyholm, Jessica Lea, MD 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 (Primary Dx) 10/24/2023 2:10 PM CDT - 10/24/2023 11:59 PM CDT Hospital Encounter [facility] Maternal Medicine [place] [address] [place] [address] Angelica Wright MD 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 Discharge Disposition: Home or Self Care 10/10/2023 Office Visit [facility] Heart [address] [phone] Esequiel Grier MD cardiac disease affecting , fetus 1 of multiple gestation (Primary Dx); cardiac disease affecting , fetus 2 of multiple gestation 10/10/2023 Travel 10/10/2023 11:09 AM CDT - 10/10/2023 11:59 PM CDT Hospital Encounter [facility] Care [address] [place] [phone] Vanita Lin MD Paredes, Carmen R 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 Discharge Disposition: Home or Self Care 10/10/2023 10:59 AM CDT - 10/10/2023 11:08 AM CDT Hospital Encounter [facility] Care [address] [place] [phone] Vanita Lin MD 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 Discharge Disposition: Home or Self Care 10/08/2023 Travel 10/08/2023 12:15 PM CDT Office Visit [facility] M[facility] [place] [address] [place] [address] Vanita Lin MD Rauk, Phillip Neil, MD 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 (Primary Dx) 10/08/2023 11:26 AM CDT - 10/08/2023 11:59 PM CDT Hospital Encounter [facility] Maternal Medicine [facility] [address] [place] [address] Vanita Lin MD Rauk, Phillip Neil, MD 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 Discharge Disposition: Home or Self Care 09/30/2023 Travel 09/30/2023 9:15 AM CDT Office Visit [facility] Maternal Medicine [facility] [address] [place] [address] Vanita Lin MD Rauk, Phillip Neil, MD 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 (Primary Dx) 09/30/2023 8:45 AM CDT - 09/30/2023 11:59 PM CDT Hospital Encounter [facility] Maternal Medicine [facility] [address] [place] [address] Vanita Lin MD Rauk, Case Seals MD 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 Discharge Disposition: Home or Self Care 09/26/2023 4:43 PM CDT - 09/28/2023 12:22 PM CDT Hospital Encounter [facility] [address] [place], [place] [address] [address] Heidi Swain MD Cervical shortening affecting in second trimester (Primary Dx) Discharge Disposition: Home or Self Care 09/27/2023 9:12 AM CDT Anesthesia Event [facility] [address] [place], [place] [address] [address] Agustina Dinh MD Yang, Simon, MD 09/27/2023 9:00 AM CDT - 09/27/2023 10:15 AM CDT Surgery [facility] [address] [place], [place] [address] [phone] Heidi Swain MD [place]cl[place] cervical 09/26/2023 Travel 09/26/2023 1:30 PM CDT Office Visit [facility] [employer] [address] [place] [phone] Lamar Griffith 09/26/2023 2:45 PM CDT Office Visit [facility] M[facility] [address] [facility] [address] [place] [phone] Vanita Lin MD Yamamura, Yasuko, MD 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 (Primary Dx); Cervical insufficiency during in second trimester, antepartum 09/26/2023 1:22 PM CDT - 09/26/2023 4:42 PM CDT Hospital Encounter [facility] [place] [address] [facility] [address] [place] [phone] Vanita Lin MD Yamamura, Yasuko, MD 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 Discharge Disposition: Home or Self Care from Last 3 Months Allergies No known [...] Info) Description 12/19/2023 11:00 AM CDT Appointment [facility] [place] [address] [facility] [address] [place] [phone] Raya Dickens MD [address] [place], [place] [phone] Nitin Morris MD [address] [place], [place] [address] 12/19/2023 11:30 AM CDT Office Visit [facility] Maternal Medicine [place] [address] [address] [facility] [address] [place] [phone] Raya Dickens MD [address] [place], [place] [phone] Nitin Morris MD [address] [place], [place] [phone] 12/26/2023 3:00 PM CDT Appointment [facility] Maternal [facility] [place] [address] [facility] [address] [place] [phone] Raya Dickens MD [address] [place], [place] [address] 12/26/2023 3:30 PM CDT Office Visit [facility] Maternal Medicine [place] [address] [address] [facility] [address] [place] [phone] Raya Dickens MD [address] [place], [place] [address] 01/02/2024 2:15 PM CDT Appointment [facility] Medicine [place] [address] [place] [phone] Raya Dickens MD [address] [place] [address] 01/02/2024 2:45 PM CDT Office Visit [facility] Maternal Medicine [place] [address] [place] [phone] Raya Dickens MD [address] [place] [address] 01/09/2024 3:00 PM CDT Appointment [facility] Maternal Medicine [place] [address] [place] [phone] Raya Dickens MD [address] [place] [address] 01/09/2024 3:30 PM CDT Office Visit [facility] Maternal Medicine [place] [address] [place] [phone] Raya Dickens MD [address] [place] [address] 01/16/2024 2:15 PM ED CASE MANAGER Appointment [facility] Maternal Medicine [place] [address] [place] [phone] Raya Dickens MD [address] [place] [address] 01/16/2024 2:45 PM ED CASE MANAGER Office Visit [facility] Maternal Medicine [place] [address] [facility] [address] [place] [phone] Raya Dickens MD [address] [place] [address] Procedures Procedure Name Priority Date/Time Associated Diagnosis Comments MFM TWINS US COMPREHENSIVE F/U Routine 12/05/2023 2:46 PM CDT 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 MFM TWINS US COMPREHENSIVE F/U Routine 11/21/2023 [...] PM CDT ABO/RH TYPE AND SCREEN STAT 5:15 PM CDT TYPE AND SCREEN, ADULT [...] to Health Maintenance Results * MFM Twins Comprehensive F/U (12/05/2023 2:46 PM CDT) Only the most recent of6 resultswithin the time period is included. Anatomical Region Laterality Modality Ultrasound 12/05/2023 2:09 PM CDT Impressions 12/05/2023 2:46 PM CDT IMPRESSION ----- Monochorionic diamniotic twin gestation at 30w 3d gestational age. Fetus 1 1. A normal [...] syndrome or twin anemia polycythemia syndrome. Narrative 12/05/2023 2:46 PM CDT ? Surveillance ----- Pat. Name: KYARA ALVAREZ ? Study Date: ??12/05/2023 2:09pm Pat. NO: ??[id number] ?Referring ??: RAYA SHAH Site: ? Hospital Receptionist: Linda Lock RDMS : ??2000 ?Age: ?? 23 ----- INDICATION ----- Monochorionic, Diamniotic Twin gestation. METHOD ----- Transabdominal ultrasound examination. View: Sufficient. ----- Twin . Number of fetuses: 2. Monochorionic-diamniotic DATING ----- ? Date ?Details ?Gest. age ?FERNANDO LMP ?04/29/2023 ?Cycle: irregular cycle ? 31 w + 3 d ? 02/03/2024 Previous U/S ?07/18/2023 ?GA, GA 10 w + 3 d ?30 w + 3 d ? 02/10/2024 Assigned dating ?based on ultrasound (GA), selected on 12/05/2023 ?30 w + 3 d ? 02/10/2024 Fetus 1: GENERAL EVALUATION ----- Cardiac activity present. FHR 144 bpm. movements: visualized. Presentation: cephalic, maternal right Placenta: Anterior, thin dividing membrane, Anterior, thin dividing membrane Umbilical cord: previously studied Amniotic fluid: Amount of AF: normal. MVP 6.7 cm Fetus 2: GENERAL EVALUATION ----- Cardiac activity present. FHR 143 bpm. movements: visualized. Presentation: breech, maternal left Placenta: Anterior, thin dividing membrane, Anterior, thin dividing membrane Umbilical cord: previously studied Amniotic fluid: Amount of AF: normal. MVP 7.1 cm Fetus 1: DOPPLER ----- Umbilical Artery: normal PI ? 1.18 ?88% ? Kunal HR ? 144 ? bpm Mid Cerebral Artery: normal PS ? 49.00 ?cm/s PS ? 1.19 ?MoM Fetus 2: DOPPLER ----- Umbilical Artery: normal PI ? 1.12 ?81% ? Kunal HR ? 143 ? bpm Mid Cerebral Artery: normal PS ? 46.65 ?cm/s PS ? 1.13 ?MoM Fetus 1: TTTS ASSESSMENT ----- Cardiac activity: present Placental location: ... Placental cord insertion: ... bladder: normal hydrops: No MVP: 6.7 cm MCA PSV: 49 cm/s ??MCA MoM: 1.19 UA PI: 1.18, 88% Fetus 2: TTTS ASSESSMENT ----- Cardiac activity: present Placental location: ... Placental cord insertion: ... bladder: normal hydrops: No MVP: 7.1 cm MCA PSV: 46.65 cm/s ??MCA MoM: 1.13 UA PI: 1.12, 81% RECOMMENDATION ----- Thank-you for referring your patient [...] medical record, and communicating with other health respiratory care assistant and/or care coordination. Procedure Note Didi Daniel MD - 12/05/2023 [facility] ----- Pat. Name: KYARA ALVAREZ Study Date: 12/05/2023 2:09pm Pat. NO: [id number] Referring MD: RAYA SHAH Site: Hospital Receptionist: Linda Lock RDMS : 2000 Age: 23 ----- INDICATION ----- Monochorionic, Diamniotic Twin gestation. METHOD ----- Transabdominal ultrasound examination. View: Sufficient. ----- Twin . Number of fetuses: 2. Monochorionic-diamniotic DATING ----- DateDetailsGest. age FERNANDO LMP 04/29/2023ycle: irregular cycle31 w + 3 d 02/03/2024 Previous U/S 07/18/2023 GA, GA10 w + 3 d30 w + 3 d 02/10/2024 Assigned dating based on ultrasound (GA), selected on12/05/2023 30w + 3 d 02/10/2024 Fetus 1: GENERAL EVALUATION ----- Cardiac activity present. FHR 144 bpm. movements: visualized.Presentation: cephalic, maternal right Placenta: Anterior, thin dividing membrane, Anterior, thin dividingmembrane Umbilical cord: previously studied Amniotic fluid: Amount of AF: normal. MVP 6.7 cm Fetus 2: GENERAL EVALUATION ----- Cardiac activity present. FHR 143 bpm. movements: visualized.Presentation: breech, maternal left Placenta: Anterior, thin dividing membrane, Anterior, thin dividingmembrane Umbilical cord: previously studied Amniotic fluid: Amount of AF: normal. MVP 7.1 cm Fetus 1: DOPPLER ----- Umbilical Artery: normal PI 1.1888%Kunal HR 144bpm Mid Cerebral Artery: normal PS 49.00cm/s PS 1.19MoM Fetus 2: DOPPLER ----- Umbilical Artery: normal PI 1.1281%Kunal HR 143bpm Mid Cerebral Artery: normal PS 46.65cm/s PS 1.13MoM Fetus 1: TTTS ASSESSMENT ----- Cardiac activity: present Placental location: ... Placental cord insertion: ... bladder: normal hydrops: No MVP: 6.7 cm MCA PSV: 49 cm/s MCA MoM: 1.19 UA PI: 1.18, 88% Fetus 2: TTTS ASSESSMENT ----- Cardiac activity: present Placental location: ... Placental cord insertion: ... bladder: normal hydrops: No MVP: 7.1 cm MCA PSV: 46.65 cm/s MCA MoM: 1.13 UA PI: 1.12, 81% RECOMMENDATION ----- Thank-you for referring your patient [...] electronic medical record, andcommunicating with other health respiratory care assistant and/or carecoordination. IMPRESSION ----- Monochorionic diamniotic twin gestation at 30w 3d gestational age. Fetus 1 1. A normal [...] Dickens MD IMG MFM US ORDERAB LES * ECHO - TWIN B COMPLETE (10/10/2023 1:35 PM CDT) Anatomical Region Laterality Modality Echocardiography 10/10/2023 12:0 8 PM CDT Narrative 10/10/2023 2:59 PM CDT [id number]^RILEY^VANITA ? Study ID: [id number] ?[facility] ?[facility] ?[address] ?[place] [address] ? Echocardiogram Name: KYARA ALVAREZ Study Date: 10/10/2023 12:08 PM ? Patient Location: [facility] Gender: Female ?Patient Class: Outpatient : [...] to the left atrium. There is laminar voqzl-is-johr shunting across the foramen ovale. Atrioventricular valves: [...] Procedure Note Esequiel Grier MD - 10/10/2023 [id number] [facility] [id number]^RILEY^VANITA Study ID:[id number] [facility] [address] [address] Echocardiogram Name: KYARA ALVAREZ Study Date: 10/10/2023 12:08 PM Patient Location: [facility] Gender: Female Patient Class:Outpatient : 2000 [...] in to the left atrium. There is txxpcmzncald-ov-sjwh shunting across the foramen ovale. Atrioventricular valves: [...] PM CDT Narrative 10/10/2023 3:00 PM CDT [id number]^RILEY^VANITA ? Study ID: [id number] ?[facility] ?[facility] ?[address] ?[place] [address] ? Echocardiogram Name: KYARA ALVAREZ Study Date: 10/10/2023 12:34 PM ? Patient Location: [facility] Gender: Female ?Patient Class: Outpatient : [...] to the left atrium. There is laminar inihb-cw-keng shunting across the foramen ovale. Atrioventricular valves: [...] Procedure Note Esequiel Grier MD - 10/10/2023 [id number]^KAMHANY Study ID:[id number] [facility] [address] [address] Echocardiogram Name: KYARA ALVAREZ Study Date: 10/10/2023 12:34 PM Patient Location: [facility] Gender: Female Patient Class:Outpatient : 2000 Age: [...] in to the left atrium. There is clsclcfjilvj-mt-izgb shunting across the foramen ovale. Atrioventricular valves: [...] Medication Administration Time: 09/27/2023 9:20 AM FOR [facility] ([facility]) ONLY: ?? Pain Team Contact information: please page the Pain Team Via [employer]. Search Pain. During daytime hours, please page the attending first. At night please page the resident first. Agustina Dinh MD [place] ANESTHESIA * (ABNORMAL) UA with Microscopic (09/26/2023 [...] 09/26/2023 6:37 PM CDT UR LABORATORY Specific [place] Urine 1.018 1.003 - 1.035 09/26/2023 6:37 [...] MD LAB - URINE ORDERABLES UR LABORATORY [facility] [place] [facility] [address] [facility], [address] [place] [address]RUST * Urine Culture (09/26/2023 5:51 PM CDT) Culture No Growth XIOMARA 09/28/2023 6:20 AM CDT [facility] ID[facility] LABORATORY Urine MID-STREAM URINE SPECIMEN / Unknown Non-blood Collection / Unknown 09/26/2023 5:51 PM CDT 09/26/2023 6:04 PM CDT Socorro Danielson MD LAB - MICRO GENERAL ORDERABLES [facility] LABORAT[facility] Inf. Diseases Diag. Lab [address] [facility], [address] [place] [address]RUST * (ABNORMAL) Wet prep (09/26/2023 5:50 PM [...] LAB - MICRO GENERAL ORDERABLES UR LABORATORY [facility] Acute Care Lab [address] [facility], [address] [place] [address]RUST * Neisseria gonorrhoea PCR (09/26/2023 5:50 PM CDT) Neisseria gonorrhoeae Negative Negative 09/27/2023 11:37 AM CDT [facility]ORAT[facility] Comment:Negative for N. gono rrhoeae rRNA by gage designer mediated amplification. A negative result by gage designer mediated amplification does not preclude the presence of C. trachomatis infection because results are dependent on proper and adequate collection, absence of inhibitors and sufficient rRNA to be detected. Swab VAGINAL STRUCTURE / Unknown Non-blood Collection / Unknown 09/26/2023 5:50 PM CDT 09/26/2023 6:03 PM CDT Socorro Danielson MD LAB - MICRO GENERAL ORDERABLES Performing Organization Address City/[facility]/ZIP Co de Phone Number [facility] LABORATORY [facility] Inf. Diseases Diag. Lab [address] [facility], [address] [place] [phone] * Chlamydia trachomatis PCR (09/26/2023 5:50 PM CDT) Chlamydia trachomatis Negative Negative 09/27/2023 11:37 AM CDT [facility] Comment:A negative result by gage designer mediated amplification does not preclude the presence of C. trachomatis infection because results are dependent on proper and adequate collection, absence of inhibitors and sufficient rRNA to be detected. Swab VAGINAL STRUCTURE / Unknown Non-blood Collection / Unknown 09/26/2023 5:50 PM CDT 09/26/2023 6:03 PM CDT Socorro Danielson MD LAB - MICRO GENERAL ORDERABLES [facility] ID[facility] LABORATORY [facility] Inf. Diseases Diag. Lab [address] [facility], [address] [place] [address]RUST * Extra Serum Separator Tube (SST) (09/26/2023 5:15 PM CDT) Hold Specimen [facility] 09/26/2023 6:32 PM CDT UR LABORATORY Blood STRUCTURE OF RIGHT UPPER LIMB / Unknown Venipuncture / Unknown 09/26/2023 5:15 PM CDT 09/26/2023 5:24 PM CDT Heidi Swain MD LAB - BLOOD ORDERA BLES UR LABORATORY [facility] Acute Care Lab [address] [place] [address], [address] * Extra Green Top (Hopkins Heparin) Tube (09/26/2023 5:15 PM CDT) Hold Specimen [facility] 09/26/2023 6:32 PM CDT UR LABORATORY Blood STRUCTURE OF RIGHT UPPER LIMB / Unknown Venipuncture / Unknown 09/26/2023 5:15 PM CDT 09/26/2023 5:25 PM CDT Heidi Swain MD LAB - BLOOD ORDERA BLES UR LABORATORY [facility] Lab [address] [place] [address], [address] * Adult Type and Screen (09/26/2023 5:15 PM CDT) ABO/RH(D) A POS 09/26/2023 4:59 PM CDT UR BLOOD BANK Antibody Screen Negative Negative 09/26/2023 4:59 PM CDT UR BLOOD BANK SPECIMEN EXPIRATION DATE [id number] 09/26/2023 4:59 PM CDT UR BLOOD BANK Blood STRUCTURE OF RIGHT UPPER LIMB / Unknown Venipuncture / Unknown 09/26/2023 5:15 PM CDT 09/26/2023 5:20 PM CDT Socorro Danielson MD LAB - BLOOD BANK TEST ORDER UR BLOOD BANK [facility] Blood Components Lab [address] [facility], [address] [place] [address]RUST * (ABNORMAL) CBC with platelets (09/26/2023 5:15 [...] [facility] [address] [facility], [address] [place] [address], [facility] * MFM Twins US Comprehensive (09/26/2023 3:21 [...] ? Study Date: ??09/26/2023 1:31pm Pat. NO: ??[id number] ?Referring ??MD: RAYA SHAH Site: ? Hospital Receptionist: Christopher Street RDMS : ??2000 ?Age: ?? [...] lb 11 ? oz EFW by ?Hadlock ([id number]) EFW discordance ?13.8 ?% Head / Face / Neck Biometry: Energy Analyst ?5.3 ? mm CM ? 2.4 ? [...] lb 13 ? oz EFW by ?Hadlock ([id number]) EFW discordance ?13.8 ?% Head / Face / Neck Biometry: Energy Analyst ?6.9 ? mm CM ? 4.3 ? [...] view. RVOT view. LVOT view. 3-vessel view. 8-vhaxsd-jmjdyzi view. Situs. Aortic arch view. Bicaval view. [...] view. RVOT view. LVOT view. 3-vessel view. 9-awqzrk-cqczupc view. Situs. Aortic arch view. Bicaval view. [...] the patient (reviewing medical records/tests), in direct qgop-pi-uigi contact with the patient during her visit with the majority spent counseling and discussing the plan of care and documenting the visit in the electronic medical record. Please see note for details. Procedure Note Angelica Wright MD - 10/08/2023 Comprehensive ----- Pat. Name: KYARA ALVAREZ Study Date: 09/26/2023 1:31pm Pat. NO: [id number] Referring MD: RAYA SHAH Site: Hospital Receptionist: Christopher Street RDMS : 2000 Age: 22 [...] EFW (lb,oz) 0 lb 11oz EFW by Hadlock([id number]-FL) EFW discordance 13.8% Head / Face / Neck Biometry: Energy Analyst 5.3mm CM 2.4mm Nasal bone 5.9mm Fetus 2: BIOMETRY ----- BPD 46.2mm 20w 0dHadlock OFD 62.0mm 20w 0dNicolaides HC 172.9mm 19w 6dHadlock Cerebellum tr 19.7mm 18w 6dNicolaides Nuchal fold 4.4mm AC 155.0mm 20w 5d 52%Hadlock Femur 34.9mm 21w 0dHadlock Humerus 30.9mm 20w 2dJeanty Weight Calculation: EFW 371g 59%Hadlock EFW (lb,oz) 0 lb 13oz EFW by Hadlock([id number]-ZO-PQ-FL) EFW discordance 13.8% Head / Face / Neck Biometry: Energy Analyst 6.9mm CM 4.3mm Nasal bone 5.8mm Fetus 1: ANATOMY ----- The following structures appear normal: Head / Neck Cranium. Head size. Head shape.Lateral ventricles. Choroid plexus. Midline falx. Cavum septi pellucidi.Cerebellum. Cisterna magna. Parenchyma. Thalami. Vermis. Neck. Nuchal fold. Face Lips. Profile. Nose. Maxilla.Mandible. Orbits. Lens. Heart / Thorax 4-chamber view. RVOT view. LVOT view.3-vessel view. 8-dtrixi-ieahesm view. Situs. Aortic arch view. Bicavalview. Ductal [...] 4-chamber view. RVOT view. LVOT view.3-vessel view. 4-npihge-lamhgpw view. Situs. Aortic arch view. Bicavalview. Ductal [...] see the patient (reviewing medical records/tests), in uqlspiwxdj-hr-mknk contact with the patient during her visit [...] length of 8 mm. Vanita Lin MD [facility] US ORDERABLE S * [facility] Non-Invasive Screening???Prequel (08/08/2023 12:45 PM CDT) See Scanned Result [employer] NON-INVASIVE SCREENING PREQUEL-Scann ed 08/14/2023 11:49 AM CDT [employer] Blood STRUCTURE OF RIGHT UPPER LIMB / Unknown Venipuncture / Unknown 08/08/2023 12:45 PM CDT 08/08/2023 12:45 PM CDT Nelsy Diaz GC LAB - BLOOD ORDERABL ES [employer] [address] [place] [address], [facility] [phone] from Last 3 Months or Most Recently Relevant to Health Maintenance Advance Directives For more information, please contact: [phone] * Full Code (Latest Code Status on File) Date Activated Date Inactivated Comments 09/26/2023 4:59 PM 09/27/2023 12:16 PM All basic a nd advanced life-sustaining interventions are performed as appropriate Question Answer Comments Code status determined by: Discussion with patie nt/ legal decision maker 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
--- OUTSIDE RECORDS SUMMARY | 2023-12-09 13:43 | XMS_ITS | Clinical Summary ---
Author Organization [facility] Address [address] [place] [address]. 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) 12/05/2023 1:58 PM CDT - 12/05/2023 11:59 PM CDT Hospital Encounter [facility] [place] [address] [place] [address] Didi Daniel MD 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 Discharge Disposition: Home or Self Care 12/05/2023 Travel 11/21/2023 10:45 AM CDT Office Visit [facility] [place] [address] [place] [address] Raya Dickens MD Nashif, Sereen, MD 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) 11/21/2023 9:59 AM CDT - 11/21/2023 11:59 PM CDT Hospital Encounter [facility] [place] [address] [place] [address] Raya Dickens MD Nashif, Sereen, MD 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 Discharge Disposition: Home or Self Care 11/21/2023 Travel 11/07/2023 2:00 PM CDT Office Visit [facility] [place] [address] [place] [address] Angelica Wright MD 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 (Primary Dx) 11/07/2023 1:01 PM CDT - 11/07/2023 11:59 PM CDT Hospital Encounter [facility] [place] [address] [place] [address] Angelica Wright MD 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 Discharge Disposition: Home or Self Care 11/07/2023 Travel 10/24/2023 2:45 PM CDT Office Visit [facility] [place] [address] [place] [address] Angelica Wright MD Nyholm, Jessica Lea, MD 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 (Primary Dx) 10/24/2023 2:10 PM CDT - 10/24/2023 11:59 PM CDT Hospital Encounter [facility] [place] [address] [place] [address] Angelica Wright MD 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 Discharge Disposition: Home or Self Care 10/24/2023 Travel 10/10/2023 11:09 AM CDT - 10/10/2023 11:59 PM CDT Hospital Encounter [facility] [address] [place] [phone] Vanita Lin MD Paredes, Carmen R 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 Discharge Disposition: Home or Self Care 10/10/2023 10:59 AM CDT - 10/10/2023 11:08 AM CDT Hospital Encounter [facility] [address] [place] [phone] Vanita Lin MD 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 Discharge Disposition: Home or Self Care 10/10/2023 Office Visit [facility] [address] [place] [phone] Esequiel Grier MD cardiac disease affecting , fetus 1 of multiple gestation (Primary Dx); cardiac disease affecting , fetus 2 of multiple gestation 10/10/2023 Travel 10/08/2023 12:15 PM CDT Office Visit [facility] [address] [place] [address] Vanita Lin MD Rauk, Case Seals MD 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 (Primary Dx) 10/08/2023 11:26 AM CDT - 10/08/2023 11:59 PM CDT Hospital Encounter [facility] [address] [place] [address] Vanita Lin MD Rauk, Phillip Neil, MD Monochorionic diamniotic twin gestation in first trimester Discharge Disposition: Home or Self Care 10/08/2023 Travel 09/30/2023 9:15 AM CDT Office Visit [facility] [place] [address] [facility] [address] [place] [phone] Vanita Lin MD Rauk, Case Seals MD 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 (Primary Dx) 09/30/2023 8:45 AM CDT - 09/30/2023 11:59 PM CDT Hospital Encounter [facility] [place] [address] [facility] [address] [place] [phone] Vanita Lin MD Rauk, Case Seals MD Monochorionic diamniotic twin gestation in first trimester Discharge Disposition: Home or Self Care 09/30/2023 Travel 09/27/2023 9:12 AM CDT Anesthesia Event [facility] [address] [phone] Agustina Dinh MD Yang, Simon, MD 09/27/2023 9:00 AM CDT - 09/27/2023 10:15 AM CDT Surgery [facility] [address] [place] [address] Heidi Swain MD Cerclage cervical 09/26/2023 4:43 PM CDT - 09/28/2023 12:22 PM CDT Hospital Encounter [facility] [address] [place] [address] Heidi Swain MD Cervical shortening affecting in second trimester (Primary Dx) Discharge Disposition: Home or Self Care 09/26/2023 2:45 PM CDT Office Visit [facility] [place] [address] [place] [phone] Vanita Lin MD Yamamura, Yasuko, MD 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 (Primary Dx); Cervical insufficiency during in second trimester, antepartum 09/26/2023 1:30 PM CDT Office Visit [facility] [address] [place] [address] Lamar Griffith 09/26/2023 1:22 PM CDT - 09/26/2023 4:42 PM CDT Hospital Encounter [facility] [address] [place] [address] Vanita Lin MD Yamamura, Yasuko, MD Monochorionic diamniotic twin gestation in first trimester Discharge Disposition: Home or Self Care 09/26/2023 Travel from Last 3 Months Social History [...] Info) Description 12/19/2023 11:00 AM CDT Appointment [facility] [place] [address] [facility] [address] [place] [phone] Raya Dickens MD [address] [place] [address] [place], [place] [phone] Nitin Morris MD [address] [place] [address] [place], [place] [address] 12/19/2023 11:30 AM CDT Office Visit [facility] [place] [address] [facility] [address] [place] [phone] Raya Dickens MD [address] [place] [address] [place], [place] [phone] Nitin Morris MD [address] [place] [address] [place], [place] [phone] 12/26/2023 3:00 PM CDT Appointment [facility] [place] [address] [facility] [address] [place] [phone] Raya Dickens MD [address] [place] [address] [place], [place] [address] 12/26/2023 3:30 PM CDT Office Visit [facility] [place] [address] [facility] [address] [place] [phone] Raya Dickens MD [address] [place] [address] [place], [place] [address] 01/02/2024 2:15 PM CDT Appointment [facility] [place] [address] [place] [phone] Raya Dickens MD [address] [place] [address] [place] [address] 01/02/2024 2:45 PM CDT Office Visit [facility] [place] [address] [place] [phone] Raya Dickens MD [address] [place] [address] [place] [address] 01/09/2024 3:00 PM CDT Appointment [facility] [place] [address] [place] [phone] Raya Dickens MD [address] [place] [address] [place] [address] 01/09/2024 3:30 PM CDT Office Visit [facility] [place] [address] [place] [phone] Raya Dickens MD [address] [place] [address] [place] [address] 01/16/2024 2:15 PM ONLINE AFFILIATE MARKETING MANAGER Appointment [facility] [place] [address] [place] [phone] Raya Dickens MD [address] [place] [address] [place] [address] 01/16/2024 2:45 PM ONLINE AFFILIATE MARKETING MANAGER Office Visit [facility] [place] [address] [facility] [address] [place] [phone] Raya Dickens MD [address] [place] [address] [place] [address] Health Maintenance Due Date Last [...] year) 2023 OBGCT (OB) 10/21/2023 COVID-19 Vaccine ( - season) 2023 INFLUENZA VACCINE (#1) 2023 03/29/2014 RSV VACCINE (1 - Risk 1-dose series) 12/16/2023 CHLAMYDIA SCREENING 09/25/2024 09/26/2023 DTAP/TDAP/TD IMMUNIZATION (5 - Td or Tdap) 11/27/2033 11/28/2023, 11/22/2014, 05/06/2014, Additional history exists MENINGITIS IMMUNIZATION Aged Out 03/29/2014 No l [...] PM CDT TYPE AND SCREEN, ADULT STAT 5:15 PM CDT EXTRA GREEN TOP (LITHIUM [...] Results * MFM Twins US Comprehensive F/U (12/05/2023 2:46 PM CDT) Only [...] ? Study Date: ??12/05/2023 2:09pm Pat. NO: ??[id number] ?Referring ??MD: RAYA SAHH Site: ? Whizzer Hand: Linda Lock RDMS : ??2000 ?Age: ?? [...] medical record, and communicating with other health healthcare administrative assistant and/or care coordination. Procedure Note Didi Daniel MD - 12/05/2023 [facility] ----- Pat. Name: KYARA ALVAREZ Study Date: 12/05/2023 2:09pm Pat. NO: [id number] Referring MD: RAYA SHAH Site: Whizzer Hand: Linda Lock RDMS : 2000 Age: 23 [...] electronic medical record, andcommunicating with other health healthcare administrative assistant and/or carecoordination. IMPRESSION ----- Monochorionic diamniotic [...] twin anemia polycythemia syndrome. Raya Dickens MD [facility] US ORDERAB LES * ECHO - TWIN B COMPLETE (10/10/2023 1:35 PM CDT) Anatomical Region Laterality Modality Echocardiography 10/10/2023 12:0 8 PM CDT Narrative 10/10/2023 2:59 PM CDT [id number]^RILEY^VANITA ? Study ID: [id number] ?[facility] [place] [facility] ?[facility] ?[address] ?[place] [address] ? Echocardiogram Name: ROLANDO VILLEGAS KYARA Tiago Study Date: 10/10/2023 12:08 PM [...] to the left atrium. There is laminar jlmyt-sx-adww shunting across the foramen ovale. Atrioventricular valves: [...] Procedure Note Esequiel Grier MD - 10/10/2023 [id number]^MANUEL Study ID:[id number] [facility]'[address] [address] Echocardiogram Name: MARSHALL KYARA VILLEGAS Study Date: 10/10/2023 12:08 PM Patient Location: [facility] Gender: Female Patient Class:Outpatient : [id number] Age: 22 yrs Ordering Provider: VANITA LIN Referring Provider: VANITA LIN Performed By: Doris Black Physician: Esequiel Greir MD Reason For Study: Monochorionic diamniotic twin [...] in to the left atrium. There is nwsuvowacyrp-oa-smje shunting across the foramen ovale. Atrioventricular valves: [...] PM CDT Narrative 10/10/2023 3:00 PM CDT [id number]^RILEY^VANITA ? Study ID: [id number] ?[facility] [place] [facility] ?[facility] ?[address] ?[place] [address] ? Echocardiogram Name: KYARA ALVAREZ Study Date: [...] to the left atrium. There is laminar dhcsg-bb-poif shunting across the foramen ovale. Atrioventricular valves: [...] Procedure Note Esequiel Grier MD - 10/10/2023 [id number]^MANUEL Study ID:[id number] [facility] [place] [address] Echocardiogram Name: MARSHALL VILLEGASKYARA MARX Study Date: 10/10/2023 12:34 PM Patient Location: [facility] Gender: Female Patient Class:Outpatient : [...] in to the left atrium. There is ocfbxyvwayxf-rr-iswz shunting across the foramen ovale. Atrioventricular valves: [...] Medication Administration Time: 09/27/2023 9:20 AM FOR [facility] ([facility]) ONLY: ?? Pain Team Contact information: please page the Pain Team Via [employer]. Search Pain. During daytime hours, please page the attending first. At night please page the resident first. Agustina Dinh MD [place] ANESTHESIA * (ABNORMAL) UA with Microscopic (09/26/2023 [...] 09/26/2023 6:37 PM CDT UR LABORATORY Specific [place] Urine 1.018 1.003 - 1.035 09/26/2023 6:37 [...] MD LAB - URINE ORDERABLES UR LABORATORY [facility] [address] [facility], [address] [place] [address] * Urine Culture (09/26/2023 5:51 PM CDT) Culture No Growth XIOMARA 09/28/2023 6:20 AM CDT [facility] Urine MID-STREAM URINE SPECIMEN / Unknown Non-blood Collection / Unknown 09/26/2023 5:51 PM CDT 09/26/2023 6:04 PM CDT Socorro Danielson MD LAB - MICRO GENERAL ORDERABLES [facility] Inf. Diseases Diag. Lab [address] [facility], [address] [place] [address] * (ABNORMAL) Wet prep (09/26/2023 5:50 [...] - MICRO GENERAL ORDERABLES Performing Organization Address City/[facility]/ZIP Co de Phone Number UR LABORATORY [facility] [address] [facility], [address] [place] [address] * Neisseria gonorrhoea PCR (09/26/2023 5:50 PM CDT) Neisseria gonorrhoeae Negative Negative 09/27/2023 11:37 AM CDT [facility] Comment:Negative for N. gono rrhoeae rRNA by legal transcriptionist mediated amplification. A negative result by legal transcriptionist mediated amplification does not preclude the presence of C. trachomatis infection because results are dependent on proper and adequate collection, absence of inhibitors and sufficient rRNA to be detected. Swab VAGINAL STRUCTURE / Unknown Non-blood Collection / Unknown 09/26/2023 5:50 PM CDT 09/26/2023 6:03 PM CDT Socorro Danielson MD LAB - MICRO GENERAL ORDERABLES [facility] Inf. Diseases Diag. Lab [address] [facility], [address] [place] [phone] * Chlamydia trachomatis PCR (09/26/2023 5:50 PM CDT) Chlamydia trachomatis Negative Negative 09/27/2023 11:37 AM CDT [facility] Comment:A negative result by legal transcriptionist mediated amplification does not preclude the presence of C. trachomatis infection because results are dependent on proper and adequate collection, absence of inhibitors and sufficient rRNA to be detected. Swab VAGINAL STRUCTURE / Unknown Non-blood Collection / Unknown 09/26/2023 5:50 PM CDT 09/26/2023 6:03 PM CDT Socorro Danielson MD LAB - MICRO GENERAL ORDERABLES [facility] LABORAT[facility] Inf. Diseases Diag. Lab [address] [facility], [address] [phone] * Extra Serum Separator Tube (SST) (09/26/2023 5:15 PM CDT) Hold Specimen JIC 09/26/2023 6:32 PM CDT UR LABORATORY Blood STRUCTURE OF RIGHT UPPER LIMB / Unknown Venipuncture / Unknown 09/26/2023 5:15 PM CDT 09/26/2023 5:24 PM CDT Heidi Swain MD LAB - BLOOD ORDERA BLES UR LABORATORY [facility] [address] [facility], [address] [place] [address], [facility] * Extra Green Top ([place] Heparin) Tube (09/26/2023 5:15 PM CDT) Hold Specimen JIC 09/26/2023 6:32 PM CDT UR LABORATORY Blood STRUCTURE OF RIGHT UPPER LIMB / Unknown Venipuncture / Unknown 09/26/2023 5:15 PM CDT 09/26/2023 5:25 PM CDT Heidi Swain MD LAB - BLOOD ORDERA BLES UR LABORATORY [facility] [address] [facility], [address] [place] [phone] [place] [address] * Adult Type and Screen (09/26/2023 5:15 PM CDT) Pathologist [facility] ABO/RH(D) A POS 09/26/2023 4:59 PM CDT UR BLOOD BANK Antibody Screen Negative Negative 09/26/2023 4:59 PM CDT UR BLOOD BANK SPECIMEN EXPIRATION DATE [id number] 09/26/2023 4:59 PM CDT UR BLOOD BANK Blood STRUCTURE OF RIGHT UPPER LIMB / Unknown Venipuncture / Unknown 09/26/2023 5:15 PM CDT 09/26/2023 5:20 PM CDT Socorro Danielson MD LAB - BLOOD BANK TEST ORDER UR BLOOD BANK [facility] Blood Components Lab [facility], [address] [place] [phone] [place] [address] * (ABNORMAL) CBC with platelets (09/26/2023 5:15 [...] MD LAB - BLOOD ORDERABLES UR LABORATORY [facility] [address] [facility], [address] [place] [address], [facility] * MFM Twins US Comprehensive (09/26/2023 [...] ? Study Date: ??09/26/2023 1:31pm Pat. NO: ??[id number] ?Referring ??: RAYA SHAH Site: ? Whizzer Hand: [address] RDMS : ??2000 ?Age: ?? [...] lb 11 ? oz EFW by ?Hadlock ([id number]) EFW discordance ?13.8 ?% Head / Face / Neck Biometry: Ui Ux Web Developer ?5.3 ? mm CM ? 2.4 ? mm Nasal bone ? 5.9 ?mm Fetus 2: BIOMETRY ----- BPD ? 46.2 ?mm ? 20w 0d ?Valentino SANTACRUZ ? 62.0 ?mm ? 20w 0d ?Nicolaides [...] lb 13 ? oz EFW by ?Hadlock ([id number]) EFW discordance ?13.8 ?% Head / Face / Neck Biometry: Ui Ux Web Developer ?6.9 ? mm CM ? 4.3 ? [...] view. RVOT view. LVOT view. 3-vessel view. 7-uubtfz-penitiv view. Situs. Aortic arch view. Bicaval view. [...] view. RVOT view. LVOT view. 3-vessel view. 2-jtegod-ityztsl view. Situs. Aortic arch view. Bicaval view. [...] the patient (reviewing medical records/tests), in direct ixfh-sj-vuyw contact with the patient during her visit with the majority spent counseling and discussing the plan of care and documenting the visit in the electronic medical record. Please see note for details. Procedure Note Angelica Wright MD - 10/08/2023 Comprehensive ----- Pat. Name: KYARA ALVAREZ Study Date: 09/26/2023 1:31pm Pat. NO: [id number] Referring MD: RAYA SHAH Site: Whizzer Hand: [address] RDMS : 2000 Age: 22 ----- INDICATION ----- Monochorionic, Diamniotic Twin gestation. METHOD ----- Transabdominal ultrasound examination. Transvaginal ultrasound examinationwas required to adequately complete the exam. View: Sufficient. ----- Twin . Number of fetuses: 2. Monochorionic-diamniotic DATING ----- DateDetailsGest. age FERNANDO LMP 4Cycle: irregular cycle21 w + 3 d 02/03/2024 Previous U/S 07/18/2023 GA, GA10 w + 3 d20 w + 3 d 02/10/2024 U/S Fetus 1 09/26/2023 basedupon AC, BPD, Femur, HC 20w + 0 d 02/13/2024 U/S Fetus 2based upon AC, BPD, Femur, HC20 w + 3 d 02/10/2024 Assigned dating based on ultrasound (GA), selected 08/29/2023 20w + 3 d 02/10/2024 Fetus 1: [...] EFW (lb,oz) 0 lb 11oz EFW by Hadlock([id number]) EFW discordance 13.8% Head / Face / Neck Biometry: Ui Ux Web Developer 5.3mm CM 2.4mm Nasal bone 5.9mm Fetus 2: BIOMETRY ----- BPD 46.2mm 20w 0dHadlock OFD 62.0mm 20w 0dNicolaides HC 172.9mm 19w 6dHadlock Cerebellum tr 19.7mm 18w 6dNicolaides Nuchal fold 4.4mm AC 155.0mm 20w 5d 52%Hadlock Femur 34.9mm 21w 0dHadlock Humerus 30.9mm 20w 2dJeanty Weight Calculation: EFW 371g 59%Hadlock EFW (lb,oz) 0 lb 13oz EFW by Hadlock([id number]-FL) EFW discordance 13.8% Head / Face / Neck Biometry: Ui Ux Web Developer 6.9mm CM 4.3mm Nasal bone 5.8mm Fetus 1: ANATOMY ----- The following structures appear normal: Head / Neck Cranium. Head size. Head shape.Lateral ventricles. Choroid plexus. Midline falx. Cavum septi pellucidi.Cerebellum. Cisterna magna. Parenchyma. Thalami. Vermis. Neck. Nuchal fold. Face Lips. Profile. Nose. Maxilla.Mandible. Orbits. Lens. Heart / Thorax 4-chamber view. RVOT view. LVOT view.3-vessel view. 0-ryxhth-vcczrzx view. Situs. Aortic arch view. Bicavalview. Ductal [...] 4-chamber view. RVOT view. LVOT view.3-vessel view. 4-uenvjy-rilntee view. Situs. Aortic arch view. Bicavalview. Ductal [...] see the patient (reviewing medical records/tests), in zjjsuxzdmr-lu-jenh contact with the patient during her visit [...] length of 8 mm. Vanita Lin MD [facility] ORDERABLE S * Assignment Editor Non-Invasive Screening???Prequel (08/08/2023 12:45 PM CDT) See Scanned Result [employer] NON-INVASIVE SCREENING PREQUEL-Scann ed 08/14/2023 11:49 AM CDT [employer] Blood STRUCTURE OF RIGHT UPPER LIMB / Unknown Venipuncture / Unknown 08/08/2023 12:45 PM CDT 08/08/2023 12:45 PM CDT Nelsy Diaz GC LAB - BLOOD ORDERABL ES [employer] [address] [facility] [place] [address], [facility] [phone] from Last 3 Months or Most Recently Relevant to Health Maintenance Advance Directives For more information, please contact: [phone] * Full Code (Latest Code Status on File) Date Activated Date Inactivated Comments 09/26/2023 4:59 PM 09/27/2023 12:16 PM All basic a nd advanced life-sustaining interventions are performed as appropriate Question Answer Comments Code status determined by: Discussion with martin nt/ legal decision maker Care Teams Data Scientist Relationship Specialty Start Date End Date No Ref-Primary, Physician PCP - General 07/22/23 Vanita Lin MD [address] [address] Assigned OBGYN Provider 08/31/23
--- OUTSIDE RECORDS SUMMARY | 2023-12-09 13:43 | XMS_ITS | Encounter Summary ---
Author Organization [place] Address [address] [facility] [address] Care Team Providers Care Director Of Retail Analytics Name Role Phone No Ref-Primary, Physician Primary Care Provider Mica Aguilar MD Unavailable [phone] Encounter Details Date Type Department Care Team (Latest Contact Info) Description 12/05/2023 Travel Social History Tobacco Use Types Packs/Day [...] Info) Description 12/19/2023 11:00 AM CDT Appointment [facility] [place] [address] [facility] [address] [place] [address] Tomasa Dickens MD [address] [place], [place] [address] Nitin Morris MD [address] [place] [address] 12/19/2023 11:30 AM CDT Office Visit [facility] [place] [address] [place] [phone] Tomasa Dickens MD [address] [place] [address] Nitin Morris MD [address] [place] [address] 12/26/2023 3:00 PM CDT Appointment [facility] Maternal Medicine [place] [address] [place] [phone] Tomasa Dickens MD [address] [place] [address] 12/26/2023 3:30 PM CDT Office Visit [facility] Maternal Medicine [place] [address] [place] [phone] Tomasa Dickens MD [address] [place] [address] 01/02/2024 2:15 PM CDT Appointment [facility] Maternal Medicine [place] [address] [place] [phone] Tomasa Dickens MD [address] [place] [address] 01/02/2024 2:45 PM CDT Office Visit [facility] Maternal Medicine [place] [address] [place] [phone] Tomasa Dickens MD [address] [place] [address] 01/09/2024 3:00 PM CDT Appointment [facility] Medicine [place] [address] [facility] [address] [place] [phone] Tomasa Dickens MD [address] [place] [address] 01/09/2024 3:30 PM CDT Office Visit [facility] [place] [address] [facility] [address] [place] [phone] Tomasa Dickens MD [address] [place], [place] [address] 01/16/2024 2:15 PM ETL CONSULTANT Appointment [facility] Medicine [place] [address] [facility] [address] [place] [phone] Tomasa Dickens MD [address] [place] [address] 01/16/2024 2:45 PM ETL CONSULTANT Office Visit [facility] Medicine [place] [address] [facility] [address] [place] [phone] Tomasa Dickens MD [address] [place], [place] [address] documented as of this encounter Visit Diagnoses Not on filedocumented in this encounter Care Teams Director Of Retail Analytics Relationship Specialty Start Date End Date No Ref-Primary, Physician PCP - General 07/22/23 Mica Aguilar MD [address] [address] [place] [address] Assigned OBGYN Provider 08/31/23 documented as of this encounter
--- OUTSIDE RECORDS SUMMARY | 2023-12-09 13:43 | XMS_ITS | Encounter Summary ---
Author Organization [place] Address [facility] [place] [address] Care Team Providers Care Basting Cleaner Name Role Phone No Ref-Primary, Physician Primary Care Provider Mica Aguilar MD Unavailable [phone] Reason for Referral * Diagnostic Imaging Ultrasound (Routine) - Pending Review Specialty Diagnoses / Procedures Referred By Contac t Referred To Contact Radiology. 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 Procedures MFM Twins Comprehensive F/U Raya Dickens MD [address] [address] Referral ID Status Reason Start Date Expiration Date V isits Requested Visits Authorized [id number] Pending Review 10/24/2023 10/23/2024 1 1 Reason for Visit * Diagnostic Imaging Ultrasound (Routine) - Pending Review Specialty Diagnoses / Procedures Referred By Contac t Referred To Contact Radiology. 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 Procedures MFM Twins Comprehensive F/U Raya Dickens MD [address] [place] [address] Referral ID Status Reason Start Date Expiration Date V isits Requested Visits Authorized [id number] Pending Review 10/24/2023 10/23/2024 1 1 Encounter Details Date Type Department Care Team (Latest Contact Info) Description 12/05/2023 1:58 PM CDT - 12/05/2023 11:59 PM CDT Hospital Encounter [facility] Medicine [facility] [address] [facility] [address] [place] [phone] Didi Daniel MD [address] [facility] [address] [place], [place] [phone] 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 [...] Info) Description 12/19/2023 11:00 AM CDT Appointment [facility] Maternal Medicine [facility] [address] [facility] [address] [place] [phone] Raya Dickens MD [address] [place], [place] [address] Nitin Morris MD [address] [place] [address] 12/19/2023 11:30 AM CDT Office Visit [facility] Maternal Medicine Center [place] [address] [place] [phone] Raya Dickens MD [address] [place] [address] Nitin Morris MD [address] [place] [address] 12/26/2023 3:00 PM CDT Appointment [facility] Maternal Medicine [place] [address] [place] [phone] Raya Dickens MD [address] [place] [address] 12/26/2023 3:30 PM CDT Office Visit [facility] Maternal Medicine [place] [address] [place] [phone] Raya Dickens MD [address] [place] [address] 01/02/2024 2:15 PM CDT Appointment [facility] Maternal Medicine [place] [address] [place] [phone] Raya Dickens MD [address] [place] [address] 01/02/2024 2:45 PM CDT Office Visit [facility] Maternal Medicine [place] [address] [place] [phone] Raya Dickens MD [address] [place] [address] 01/09/2024 3:00 PM CDT Appointment [facility] Maternal Medicine [place] [address] [facility] [address] [place] [phone] Raya Dickens MD [address] [place] [address] 01/09/2024 3:30 PM CDT Office Visit [facility] Maternal Medicine [place] [address] [facility] [address] [place] [phone] Raya Dickens MD [address] [place], [place] [address] 01/16/2024 2:15 PM RESIDENTIAL FIELD MANAGER Appointment [facility] Maternal Medicine [place] [address] [facility] [address] [place] [phone] Raya Dickens MD [address] [place] [address] 01/16/2024 2:45 PM RESIDENTIAL FIELD MANAGER Office Visit [facility] Maternal Medicine [place] [address] [facility] [address] [place] [phone] Raya Dickens MD [address] [place], [place] [address] documented as of this encounter Procedures Procedure Name Priority Date/Time Associated Diagnosis Comments MFM TWINS US COMPREHENSIVE F/U Routine 12/05/2023 2:46 PM CDT 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 documented in this encounter Results * MFM Twins US Comprehensive F/U (12/05/2023 2:46 PM CDT) Anatomical Region Laterality Modality Ultrasound 12/05/2023 2:09 [...] Narrative 12/05/2023 2:46 PM CDT ? Surveillance US ----- Pat. Name: KRISTYN MISHRA ? Study Date: ??12/05/2023 2:09pm Pat. NO: ??[id number] ?Referring ??MD: RAYA SHAH Site: ? Toolroom Clerk: Linda LockKALIE : ??2000 ?Age: ?? 23 ----- INDICATION [...] medical record, and communicating with other health patient care technician and/or care coordination. Procedure Note Didi Daniel MD - 12/05/2023 Surveillance US ----- Pat. Name: KRISTYN MISHRA Study Date: 12/05/2023 2:09pm Pat. NO: [id number] Referring MD: RAYA SHAH Site: Toolroom Clerk: Linda Lock RDMS : 2000 Age: 23 [...] electronic medical record, andcommunicating with other health patient care technician and/or carecoordination. IMPRESSION ----- Monochorionic diamniotic twin [...] anemia polycythemia syndrome. Raya Dickens MD [facility] US ORDERAB LES documented in this encounter Visit Diagnoses Diagnosis 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 documented in this encounter Care Teams Basting Cleaner Relationship Specialty Start Date End Date No Ref-Primary, Physician PCP - General 07/22/23 Mica Aguilar MD [address] [place] [address] Assigned OBGYN Provider 08/31/23 documented as of this encounter
--- OUTSIDE RECORDS SUMMARY | 2023-12-09 13:44 | XMS_ITS | Encounter Summary ---
Author Organization [place] Address [facility] [place] [address] Care Team Providers Care Cotton Tipper Name Role Phone No Ref-Primary, Physician Primary Care Provider Mica Aguilar MD Unavailable [phone] Reason for Referral * Diagnostic Imaging Ultrasound (Routine) - Pending Review Specialty Diagnoses / Procedures Referred By Contac t Referred To Contact Radiology. 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 Procedures MFM Twins US Comprehensive F/U MFM Twins US Comprehensive F/U Raya Dickens MD [address] [place] [address] Referral ID Status Reason Start Date Expiration Date V isits Requested Visits Authorized [id number] Pending Review 10/24/2023 10/23/2024 1 1 * Diagnostic Imaging Ultrasound (Routine) - Pending Review Specialty Diagnoses / Procedures Referred By Contac t Referred To Contact Radiology. 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 Procedures MFM Twins US Comprehensive F/U MFM Twins US Comprehensive F/U Raya Dickens MD [address] [place] [address] Referral ID Status Reason Start Date Expiration Date V isits Requested Visits Authorized [id number] Pending Review 10/24/2023 10/23/2024 1 1 * Diagnostic Imaging Ultrasound (Routine) - Pending Review Specialty Diagnoses / Procedures Referred By Contac t Referred To Contact Radiology. 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 Procedures MFM Twins Comprehensive F/U Raya Dickens MD [address] [place] [address] Referral ID Status Reason Start Date Expiration Date V isits Requested Visits Authorized [id number] Pending Review 10/24/2023 10/23/2024 1 1 * Diagnostic Imaging Ultrasound (Routine) - Pending Review Specialty Diagnoses / Procedures Referred By Contac t Referred To Contact Radiology. 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 Procedures MFM Twins P Raya Dickens MD [address] [place] [address] Referral ID Status Reason Start Date Expiration Date V isits Requested Visits Authorized [id number] Pending Review 10/24/2023 10/23/2024 1 1 * Diagnostic Imaging Ultrasound (Routine) - Pending Review Specialty Diagnoses / Procedures Referred By Contac t Referred To Contact Radiology. 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 Procedures MFM Twins Raya Castellanos MD [address] [place] [address] Referral ID Status Reason Start Date Expiration Date V isits Requested Visits Authorized [id number] Pending Review 10/24/2023 10/23/2024 1 1 * Diagnostic Imaging Ultrasound (Routine) - Pending Review Specialty Diagnoses / Procedures Referred By Contac t Referred To Contact Radiology. 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 Procedures MFM Twins US Comprehensive F/U Raya Dickens MD [address] [place] [address] Referral ID Status Reason Start Date Expiration Date V isits Requested Visits Authorized [id number] Pending Review 10/24/2023 10/23/2024 1 1 * Diagnostic Imaging Ultrasound (Routine) - Pending Review Specialty Diagnoses / Procedures Referred By Contac t Referred To Contact Radiology. 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 Procedures MFM Twins US Comprehensive F/U Raya Dickens MD [address] [place] [address] Referral ID Status Reason Start Date Expiration Date V isits Requested Visits Authorized [id number] Pending Review 10/24/2023 10/23/2024 1 1 * Diagnostic Imaging Ultrasound (Routine) - Pending Review Specialty Diagnoses / Procedures Referred By Contac t Referred To Contact Radiology. 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 Procedures MFM Twins US Comprehensive F/U Raya Dickens MD [address] [place] [address] Referral ID Status Reason Start Date Expiration Date V isits Requested Visits Authorized [id number] Pending Review 10/24/2023 10/23/2024 1 1 Reason for Visit * Reason Comments Ultrasound RL2/UAR/MCA-M/D twin s Encounter Details Date Type Department Care Team (Latest Contact Info) Description 10/24/2023 2:45 PM CDT Office Visit [facility] M[facility] Medicine [facility] [place] [address] [facility] [address] [place] [address] Angelica Wright MD [address] [place] [address] Raya Dickens MD [address] [place] [address] Monochorionic diamniotic twin gestation in [...] 10/24/2023 2:45 PM CDT Patient presents to [facility] for RL2/UAR/MCA at 24w3d due to M/D twins. Positive movement x2. Denies LOF, vaginal bleeding or cramping/contractions. SBAR given to M , see their note in Epic. documented in this encounter Plan of Treatment Upcoming Encounters Date Type Department Care Team (Late st Contact Info) Description 12/19/2023 11:00 AM CDT Appointment [facility] Maternal Medicine [place] [address] [place] [phone] Raya Dickens MD [address] [place], [place] [address] Nitin Morris MD [address] [place] [address] 12/19/2023 11:30 AM CDT Office Visit [facility] Maternal Medicine [place] [address] [place] [phone] Raya Dickens MD [address] [place], [place] [phone] Nitin Morirs MD [address] [place], [place] [address] 12/26/2023 3:00 PM CDT Appointment [facility] Maternal Medicine [place] [address] [place] [phone] Raya Dickens MD [address] [place], [place] [address] 12/26/2023 3:30 PM CDT Office Visit [facility] Maternal Medicine [place] [address] [place] [phone] Raya Dickens MD [address] [place], [place] [address] 01/02/2024 2:15 PM CDT Appointment [facility] Maternal Medicine [place] [address] [place] [phone] Raya Dickens MD [address] [place] [address] 01/02/2024 2:45 PM CDT Office Visit [facility] Maternal Medicine [place] [address] [place] [phone] Raya Dickens MD [address] [place] [address] 01/09/2024 3:00 PM CDT Appointment [facility] Medicine [place] [address] [place] [phone] Raya Dickens MD [address] [place] [address] 01/09/2024 3:30 PM CDT Office Visit [facility] Maternal Medicine [place] [address] [place] [phone] Raya Dickens MD [address] [place] [address] 01/16/2024 2:15 PM HOISTING ENGINE OPERATOR Appointment [facility] Maternal Medicine [place] [address] [place] [phone] Raya Dickens MD [address] [place] [address] 01/16/2024 2:45 PM HOISTING ENGINE OPERATOR Office Visit [facility] Maternal Medicine [place] [address] [place] [phone] Raya Dickens MD [address] [place], [place] [phone] Scheduled Orders Name Type Priority Associated Diagnoses [...] ? Study Date: ??12/05/2023 2:09pm Pat. NO: ??[id number] ?Referring ??MD: RAYA SHAH Site: ? Director Of Community Education: Linda Lock RDMS : ??2000 ?Age: ?? [...] Note Didi Daniel MD - 12/05/2023 Surveillance ----- Pat. Name: KYARA ALVAREZ Study Date: 12/05/2023 2:09pm Pat. NO: [id number] Referring MD: RAYA SHAH Site: Director Of Community Education: Linda Lock RDMS : 2000 Age: 23 [...] twin anemia polycythemia syndrome. Raya Dickens MD [facility] US ORDERAB LES * [facility] Twins US Comprehensive F/U (11/21/2023 11:19 AM [...] ? Study Date: ??11/21/2023 9:59am Pat. NO: ??[id number] ?Referring ??MD: RAYA SHAH Site: ? Director Of Community Education: Christopher Street RDMS : ??2000 ?Age: ?? [...] ?2 lb 6 ?oz EFW by ?Hadlock (SPI-OD-EL-FL) EFW discordance ?9.2 ? % Head / Face / Neck Biometry: Operator Coating Furnace ?5.5 ? mm Fetus 2: BIOMETRY ----- [...] ?2 lb 10 ?oz EFW by ?Hadlock (KIJ-JE-YJ-FL) EFW discordance ?9.2 ? % Fetus 1: [...] care technician and/or care coordination. Procedure Note Nitin Morris MD - 11/21/2023 Comp Follow Up ----- Pat. Name: KYARA ALVAREZ Study Date: 11/21/2023 9:59am Pat. NO: [id number] Referring MD: RAYA SHAH Site: Director Of Community Education: Christopher Street RDMS : 2000 Age: 23 [...] EFW (lb,oz) 2 lb 6oz EFW by Hadlock(SFL-XR-HZ-FL) EFW discordance 9.2% Head / Face / Neck Biometry: Operator Coating Furnace 5.5mm Fetus 2: BIOMETRY ----- BPD 69.9mm 28w 1dHadlock OFD 94.3mm 27w 6dNicolaides HC 263.3mm 28w 5dHadlock AC 247.1mm 29w 0d 59%Hadlock Femur 49.7mm 26w 5dHadlock Humerus 45.2mm 26w 6dJeanty Weight Calculation: EFW 1,180g 27%Hadlock EFW (lb,oz) 2 lb 10oz EFW by Hadlock(HJL-ZZ-NP-FL) EFW discordance 9.2% Fetus 1: ANATOMY ----- [...] twin anemia polycythemia syndrome. Raya Dickens MD [facility] US ORDERAB LES * M Twins US [...] ? Study Date: ??11/07/2023 1:25pm Pat. NO: ??[id number] ?Referring ??MD: RAYA SHAH Site: ? Director Of Community Education: Sindhu Maurer RDMS : ??2000 ?Age: ?? [...] ?1 lb 13 ?oz EFW by ?Hadlock (LTW-TU-WA-FL) EFW discordance ?8.2 ? % Head / Face / Neck Biometry: Operator Coating Furnace ?5.2 ? mm CM ? 4.2 ? mm Fetus 2: BIOMETRY ----- BPD ? 63.7 ?mm ? 25w 5d ?Hadmontana VELAD ? 87.1 ?mm ? 26w 0d ?Nicolaides HC ? 241.1 ?mm ? 26w 1d ? Hadlock Cerebellum tr ?30.0 ?mm ? 26w 4d ? Nicolaides AC ? 226.7 ?mm ? 27w 0d ?61% ?Hadlock Femur ?44.7 ?mm ? 24w 5d ? Hadlock Weight Calculation: EFW ?891 ? g ? 26% ?Hadlock EFW (lb,oz) ?1 lb 15 ? oz EFW by ?Hadlock (LGM-CR-TY-FL) EFW discordance ?8.2 ? % Head / Face / Neck Biometry: Operator Coating Furnace ?7.7 ? mm CM ? 4.0 ? mm Fetus 1: ANATOMY ----- The following structures appear normal: Head / Neck ? Cranium. Head size. Head shape. Lateral ventricles. Midline falx. Cavum septi pellucidi. Cerebellum. Cisterna magna. Thalami. Face ? Lips. Profile. Nose. Heart / Thorax ?RVOT view. LVOT view. 4-gczyfj-apgobdy view. ? Diaphragm. Abdomen ? Stomach. Kidneys. [...] Heart / Thorax ?RVOT view. LVOT view. 9-rinuzs-zsktbig view. ? Diaphragm. Abdomen ? Stomach. Kidneys. [...] the patient (reviewing medical records/tests), in direct fniv-ps-ypbj contact with the patient during her visit with the majority spent counseling and discussing the plan of care and documenting the visit in the electronic medical record. Please see note for details. Procedure Note Angelica Wright MD - 11/07/2023 Comp Follow Up ----- Pat. Name: KYARA ALVAREZ Study Date: 11/07/2023 1:25pm Pat. NO: [id number] Referring MD: RAYA SHAH Site: Director Of Community Education: Sindhu Maurer RDMS : 2000 Age: 23 [...] EFW (lb,oz) 1 lb 13oz EFW by Hadlock(DAM-AG-ZB-FL) EFW discordance 8.2% Head / Face / Neck Biometry: Operator Coating Furnace 5.2mm CM 4.2mm Fetus 2: BIOMETRY ----- BPD 63.7mm 25w 5dHadlock OFD 87.1mm 26w 0dNicolaides HC 241.1mm 26w 1dHadlock Cerebellum tr 30.0mm 26w 4dNicolaides AC 226.7mm 27w 0d 61%Hadlock Femur 44.7mm 24w 5dHadlock Weight Calculation: EFW 891g 26%Hadlock EFW (lb,oz) 1 lb 15oz EFW by Hadlock(PQA-RZ-OT-FL) EFW discordance 8.2% Head / Face / Neck Biometry: Operator Coating Furnace 7.7mm CM 4.0mm Fetus 1: ANATOMY ----- The following structures appear normal: Head / Neck Cranium. Head size. Head shape.Lateral ventricles. Midline falx. Cavum septi pellucidi. Cerebellum.Cisterna magna. Thalami. Face Lips. Profile. Nose. Heart / Thorax RVOT view. LVOT view. 3-wjonii-nvjynvlenvh. Diaphragm. Abdomen Stomach. Kidneys. Bladder. Genitals. Spine Cervical spine. Thoracic spine.Lumbar spine. Sacral spine. The following structures were documented previously: Heart / Thorax 4-chamber view. sex: female. Fetus 2: ANATOMY ----- The following structures appear normal: Head / Neck Cranium. Head size. Head shape.Lateral ventricles. Midline falx. Cavum septi pellucidi. Cerebellum.Cisterna magna. Thalami. Face Lips. Nose. Heart / Thorax RVOT view. LVOT view. 2-lqnqij-vrytbbadkht. Diaphragm. Abdomen Stomach. Kidneys. Bladder. Spine Cervical [...] see the patient (reviewing medical records/tests), in htsydhlcjt-gk-djni contact with the patient during her visit [...] twin anemia polycythemia syndrome. Raya Dickens MD [facility] documented in this encounter Visit Diagnoses Diagnosis 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- Primary 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 documented in this encounter Care Teams Cotton Tipper Relationship Specialty Start Date End Date No Ref-Primary, Physician PCP - General 07/22/23 Mica Aguilar MD [address] [address] Assigned OBGYN Provider 08/31/23 documented as of this encounter
--- OUTSIDE RECORDS SUMMARY | 2023-12-09 13:44 | XMS_ITS | Encounter Summary ---
Author Organization [facility] Address [address] [place] [address]. [place] [address] Care Team Providers Care Fabrication Lead Name Role Phone No Ref-Primary, Physician Primary Care Provider Vanita Lin MD Unavailable [phone] Reason for Referral * (Routine) - Closed Specialty Diagnoses / Procedures Referred By Contac t Referred To Contact Cardiology 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 Procedures Echo (TTE) Complete Vanita Lin MD [address] [place] [address] [facility] [address] [place] [phone] Referral ID Status Reason Start Date Expiration Date Visits Re quested Visits Authorized [id number] Closed 08/08/2023 08/07/2024 1 1 Reason for Visit * (Routine) - Closed Specialty Diagnoses / Procedures Referred By Contbeata t Referred To Contact Cardiology 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 Procedures Echo (TTE) Vanita Tolbert MD [address] [place] [address] [facility] [address] [place] [phone] Referral ID Status Reason Start Date Expiration Date Visits Re quested Visits Authorized [id number] Closed 08/08/2023 08/07/2024 1 1 Encounter Details Date Type Department Care Team (Latest Contact Info) Description 10/10/2023 10:59 AM CDT - 10/10/2023 11:08 AM CDT Hospital Encounter [facility] [address] [place] [phone] Vanita Lin MD [address] [place] [address] Monochorionic diamniotic twin gestation in [...] Info) Description 12/19/2023 11:00 AM CDT Appointment [facility] [place] [address] [place] [phone] Tomasa Dickens MD [address] [place] [address] Nitin Morris MD [address] [place] [address] 12/19/2023 11:30 AM CDT Office Visit [facility] [place] [address] [place] [phone] Tomasa Dickens MD [address] [place] [address] Nitin Morris MD [address] [address] [place] [address] 12/26/2023 3:00 PM CDT Appointment [facility] [place] [address] [place] [phone] Tomasa Dickens MD [address] [address] [place] [address] 12/26/2023 3:30 PM CDT Office Visit [facility] [place] [address] [place] [phone] Tomasa Dickens MD [address] [place] [address] 01/02/2024 2:15 PM CDT Appointment [facility] [place] [address] [place] [phone] Tomasa Dickens MD [address] [place] [address] 01/02/2024 2:45 PM CDT Office Visit [facility] [place] [address] [place] [phone] Tomasa Dickens MD [address] [place] [address] 01/09/2024 3:00 PM CDT Appointment [facility] [place] [address] [place] [phone] Tomasa Dickens MD [address] [place] [address] 01/09/2024 3:30 PM CDT Office Visit [facility] Medicine [place] [address] [place] [phone] Tomasa Dickens MD [address] [place] [address] 01/16/2024 2:15 PM STATISTICAL CLERK Appointment [facility] Medicine [place] [address] [place] [phone] Tomasa Dickens MD [address] [place] [address] 01/16/2024 2:45 PM STATISTICAL CLERK Office Visit [facility] [place] [address] [place] [phone] Tomasa Dickens MD [address] [place] [address] documented as of this encounter Procedures Procedure Name Priority Date/Time Associated Diagnosis Comments ECHO COMPLETE Routine 10/10/2023 1 :35 PM CDT Monochorionic diamniotic twin gestation in first trimester documented in this encounter Results * ECHO COMPLETE (10/10/2023 1:35 PM CDT) Anatomical Region Laterality Modality Echocardiography 10/10/2023 12:3 4 PM CDT Narrative 10/10/2023 3:00 PM CDT [id number]^RILEY^VANITA ? Study ID: [id number] ?[facility] ?[facility] ?[address] ?[place] [address] ? Echocardiogram Name: KRISTYN MISHRA Study Date: 10/10/2023 12:34 PM ? Patient Location: [facility] Gender: Female ?Patient Class: Outpatient : 2000 [...] to the left atrium. There is laminar rgxmc-ur-aote shunting across the foramen ovale. Atrioventricular valves: [...] Procedure Note Esequiel Grier MD - 10/10/2023 [id number]^MANUEL Study ID:[id number] [facility] [place] [facility] [address] [address] Echocardiogram Name: KRISTYN MISHRA Study Date: 10/10/2023 12:34 PM Patient Location: [facility] Gender: Female Patient Class:Outpatient : 2000 Age: [...] in to the left atrium. There is qwzfrxvaaefz-be-fdmt shunting across the foramen ovale. Atrioventricular valves: [...] trimester documented in this encounter Care Teams Fabrication Lead Relationship Specialty Start Date End Date No Ref-Primary, Physician PCP - General 07/22/23 Vanita Lin MD [address] [place] [address] Assigned OBGYN Provider 08/31/23 documented as of this encounter
--- OUTSIDE RECORDS SUMMARY | 2023-12-09 13:44 | XMS_ITS | Encounter Summary ---
Author Organization [facility] Address [address] [place] [address] Care Team Providers Care Lead Consultant Name Role Phone No Ref-Primary, Physician Primary Care Provider Mica Aguilar MD Unavailable [phone] Reason for Visit * Reason Comments Ultrasound RL2-TTTS check, Twin A and B: Elevated UAR, Twin A: Mild poly Encounter Details Date Type Department Care Team (Latest Contact Info) Description 10/08/2023 12:15 PM CDT Office Visit [facility] M[facility] [place] [address] [place] [address] Mica Aguilar MD [address] [place] [address] Case Berrios MD [address] [place] [address] Monochorionic diamniotic twin gestation in [...] 10/08/2023 12:15 PM CDT Patient presents to [facility] for RL2/TTTS check at 22w1d due to Twin A and B: Elevated UAR, Twin A: Mildpoly. Positive movement x2. Denies LOF, vaginal bleeding or cramping/contractions. Spoke withpt via interpreter deaf. SBAR given to Robert FERNANDO, see their note in Epic. documented in this encounter Plan of Treatment Upcoming Encounters Date Type Department Care Team (Late st Contact Info) Description 12/19/2023 11:00 AM CDT Appointment [facility] Maternal Medicine [facility] [address] [place] [address] Tomasa Dickens MD [address] [place], [place] [phone] Nitin Morris MD [address] [place], [place] [id number] 12/19/2023 11:30 AM CDT Office Visit [facility] Medicine [facility] [address] [place] [phone] Tomasa Dickens MD [address] [place], [place] [address] Nitin Morris MD [address] [place] [address] 12/26/2023 3:00 PM CDT Appointment [facility] Medicine [place] [address] [place] [phone] Tomasa Dickens MD [address] [place], [place] [address] 12/26/2023 3:30 PM CDT Office Visit [facility] Medicine [place] [address] [place] [phone] Tomasa Dcikens MD [address] [place] [phone] 01/02/2024 2:15 PM CDT Appointment [facility] Medicine [place] [address] [place] [phone] Tomasa Dickens MD [address] [place], [place] [address] 01/02/2024 2:45 PM CDT Office Visit [facility] Maternal Medicine [place] [address] [place] [phone] Tomasa Dickens MD [address] [place] [address] 01/09/2024 3:00 PM CDT Appointment [facility]aternal Medicine [place] [address] [place] [phone] Tomasa Dickens MD [address] [place] [address] 01/09/2024 3:30 PM CDT Office Visit [facility] Medicine [place] [address] [place] [phone] Tomasa Dickens MD [address] [place] [address] 01/16/2024 2:15 PM AIRCRAFT LIFE SUPPORT FITTER Appointment [facility] Medicine [place] [address] [place] [phone] Tomasa Dickens MD [address] [place] [address] 01/16/2024 2:45 PM AIRCRAFT LIFE SUPPORT FITTER Office Visit [facility] [place] [address] [place] [phone] Tomasa Dickens MD [address] [place] [address] documented as of this encounter Visit Diagnoses Diagnosis 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
--- OUTSIDE RECORDS SUMMARY | 2023-12-09 13:44 | XMS_ITS | Encounter Summary ---
Author Organization [facility] Address [address] [facility] [place] [address] Care Team Providers Care Seed Sorter Name Role Phone No Ref-Primary, Physician Primary Care Provider Mica Aguilar MD Unavailable [phone] Encounter Details Date Type Department Care [...] Info) Description 12/19/2023 11:00 AM CDT Appointment [facility] [place] [address] [place] [address] Tomasa Dickens MD [address] [place], [place] [address] Nitin Morris MD [address] [place] [address] 12/19/2023 11:30 AM CDT Office Visit [facility] [place] [address] [place] [phone] Tomasa Dickens MD [address] [place] [address] Nitin Morris MD [address] [place] [address] 12/26/2023 3:00 PM CDT Appointment [facility] Medicine [place] [address] [place] [phone] Tomasa Dickens MD [address] [place] [address] 12/26/2023 3:30 PM CDT Office Visit [facility] [place] [address] [place] [phone] Tomasa Dickens MD [address] [place] [address] 01/02/2024 2:15 PM CDT Appointment [facility] Medicine [place] [address] [place] [phone] Tomasa Dickens MD [address] [place] [address] 01/02/2024 2:45 PM CDT Office Visit [facility] Medicine [place] [address] [place] [phone] Tomasa Dickens MD [address] [place] [address] 01/09/2024 3:00 PM CDT Appointment [facility] Medicine [place] [address] [facility] [address] [place] [phone] Tomasa Dickens MD [address] [place] [address] 01/09/2024 3:30 PM CDT Office Visit [facility] [place] [address] [facility] [address] [place] [phone] Tomasa Dickens MD [address] [place], [place] [address] 01/16/2024 2:15 PM CORE OVEN TENDER Appointment [facility] Medicine [place] [address] [facility] [address] [place] [phone] Tomasa Dickens MD [address] [place] [address] 01/16/2024 2:45 PM CORE OVEN TENDER Office Visit [facility] Medicine [place] [address] [facility] [address] [place] [phone] Tomasa Dickens MD [address] [place], [place] [address] documented as of this encounter Visit Diagnoses Not on filedocumented in this encounter Care Teams Seed Sorter Relationship Specialty Start Date End Date No Ref-Primary, Physician PCP - General 07/22/23 Mica Aguilar MD [address] [address] [place] [address] Assigned OBGYN Provider 08/31/23 documented as of this encounter
--- OUTSIDE RECORDS SUMMARY | 2023-12-09 13:44 | XMS_ITS | Encounter Summary ---
Author Organization [facility] Address [address] [place] [address]. [place] [address] Care Team Providers Care Residential Driver Name Role Phone No Ref-Primary, Physician Primary Care Provider Mica Aguilar MD Unavailable [phone] Reason for Referral * Diagnostic Imaging Ultrasound (Routine) - Pending Review Specialty Diagnoses / Procedures Referred By Contac t Referred To Contact Radiology. 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 Procedures MFM Twins Analisa F/U Case Berrios MD [address] [place] [address] Referral ID Status Reason Start Date Expiration Date V isits Requested Visits Authorized [id number] Pending Review 09/30/2023 09/29/2024 1 1 Encounter Details Date Type Department Care Team (Latest Contact Info) Description 10/24/2023 2:10 PM CDT - 10/24/2023 11:59 PM CDT Hospital Encounter [facility] Medicine [facility] [address] [place] [phone] Angelica Wright MD [address] [place] [address] Monochorionic diamniotic twin gestation in [...] Info) Description 12/19/2023 11:00 AM CDT Appointment [facility] Medicine [facility] [address] [facility] [address] [place] [phone] Raya Dickens MD [address] [place] [address] Nitin Morris MD [address] [place] [address] 12/19/2023 11:30 AM CDT Office Visit [facility] Maternal Medicine Center [place] [address] [place] [phone] Raya Dickens MD [address] [place] [address] Nitin Morris MD [address] [place] [address] 12/26/2023 3:00 PM CDT Appointment [facility] Maternal Medicine [place] [address] [place] [phone] Raya Dickens MD [address] [place] [address] 12/26/2023 3:30 PM CDT Office Visit [facility] Maternal Medicine [place] [address] [place] [phone] Raya Dickens MD [address] [place] [address] 01/02/2024 2:15 PM CDT Appointment [facility] Maternal Medicine [place] [address] [place] [phone] Ryaa Dickens MD [address] [place] [address] 01/02/2024 2:45 PM CDT Office Visit [facility] Maternal Medicine [place] [address] [place] [phone] Raya Dickens MD [address] [place] [address] 01/09/2024 3:00 PM CDT Appointment [facility] Maternal Medicine [place] [address] [facility] [address] [place] [phone] Raya Dickens MD [address] [place] [address] 01/09/2024 3:30 PM CDT Office Visit [facility] Maternal Medicine [place] [address] [facility] [address] [place] [phone] Raya Dickens MD [address] [place], [place] [address] 01/16/2024 2:15 PM REMOTELY OPERATED VEHICLE Appointment [facility] Maternal Medicine [place] [address] [facility] [address] [place] [phone] Raya Dickens MD [address] [place] [address] 01/16/2024 2:45 PM REMOTELY OPERATED VEHICLE Office Visit [facility] Maternal Medicine [place] [address] [facility] [address] [place] [phone] Raya Dickens MD [address] [place], [place] [address] documented as of this encounter Procedures Procedure [...] ? Study Date: ??10/24/2023 2:10pm Pat. NO: ??[id number] ?Referring ??MD: RAYA SHAH Site: ? Toilet Attendant: Sindhu Maurer RDMS : ??2000 ?Age: ?? [...] ?1 lb 5 ?oz EFW by ?Hadlock ([id number]-FL) EFW discordance ?10.4 ?% Head / Face / Neck Biometry: Wood Sawyer ?6.1 ? mm CM ? 6.2 ? [...] ?1 lb 8 ?oz EFW by ?Hadlock (RKV-[id number]-FL) EFW discordance ?10.4 ?% Head / Face / Neck Biometry: Wood Sawyer ?8.4 ? mm CM ? 6.3 ? mm Fetus 1: ANATOMY ----- The following structures appear normal: Head / Neck ? Cranium. Head size. Head shape. Lateral ventricles. Midline falx. Cavum septi pellucidi. Cerebellum. Cisterna magna. Thalami. Face ? Lips. Profile. Nose. Heart / Thorax ?4-chamber view. RVOT view. LVOT view. 0-eieyna-hmdykte view. ? Diaphragm. Abdomen ? Stomach. Kidneys. [...] ? Lips. Profile. Nose. Heart / Thorax ?2-qecepa-fpywlro view. sex: female. Fetus 1: DOPPLER ----- [...] MISHRA Study Date: 10/24/2023 2:10pm Pat. NO: [id number] Referring MD: RAYA SHAH Site: Toilet Attendant: Sindhu Maurer RDMS : 2000 Age: 23 [...] EFW (lb,oz) 1 lb 5oz EFW by Hadlock(PWK-TA-QN-FL) EFW discordance 10.4% Head / Face / Neck Biometry: Wood Sawyer 6.1mm CM 6.2mm Fetus 2: BIOMETRY ----- BPD 55.7mm 23w 0dHadlock OFD 78.1mm 23w 5dNicolaides HC 215.2mm 23w 4dHadlock Cerebellum tr 27.6mm 24w 6dNicolaides AC 200.6mm 24w 5d 50%Hadlock Femur 42.9mm 24w 0dHadlock Weight Calculation: EFW 677g 33%Hadlock EFW (lb,oz) 1 lb 8oz EFW by Hadlock(MUN-RV-OO-FL) EFW discordance 10.4% Head / Face / Neck Biometry: Wood Sawyer 8.4mm CM 6.3mm Fetus 1: ANATOMY ----- The following structures appear normal: Head / Neck Cranium. Head size. Head shape.Lateral ventricles. Midline falx. Cavum septi pellucidi. Cerebellum.Cisterna magna. Thalami. Face Lips. Profile. Nose. Heart / Thorax 4-chamber view. RVOT view. LVOT view.1-qmxuvj-exqlohz view. Diaphragm. Abdomen Stomach. Kidneys. Bladder. The [...] Face Lips. Profile. Nose. Heart / Thorax 1-uengup-uvlvbxo view. sex: female. Fetus 1: DOPPLER ----- [...] anemia polycythemia syndrome. 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
--- OUTSIDE RECORDS SUMMARY | 2023-12-09 13:44 | XMS_ITS | Encounter Summary ---
Author Organization [place] Address [facility] [place] [address] Care Team Providers Care Crocodile Farmer Name Role Phone No Ref-Primary, Physician Primary Care Provider Mica Aguilar MD Unavailable [phone] Reason for Referral * Diagnostic Imaging Ultrasound (Routine) - Pending Review Specialty Diagnoses / Procedures Referred By Contac t Referred To Contact Radiology. 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 Procedures MFM Twins Comprehensive F/U Mica Aguilar MD [address] [place] [address] Referral ID Status Reason Start Date Expiration Date V isits Requested Visits Authorized [id number] Pending Review 08/08/2023 08/07/2024 1 1 Reason for Visit * Diagnostic Imaging Ultrasound (Routine) - Pending Review Specialty Diagnoses / Procedures Referred By Contac t Referred To Contact Radiology. 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 Procedures MFM Twins US Comprehensive F/U Mica Aguilar MD [address] [place] [address] Referral ID Status Reason Start Date Expiration Date V isits Requested Visits Authorized [id number] Pending Review 08/08/2023 08/07/2024 1 1 Encounter Details Date Type Department Care Team (Latest Contact Info) Description 10/08/2023 11:26 AM CDT - 10/08/2023 11:59 PM CDT Hospital Encounter [facility] Medicine [facility] [address] [place] [phone] Mica Aguilar MD [address] [place] [address] Case Berrios MD [address] [place] [address] Monochorionic diamniotic twin gestation in [...] Info) Description 12/19/2023 11:00 AM CDT Appointment [facility] Medicine [facility] [address] [place] [phone] Raya Dickens MD [address] [place] [address] Nitin Morris MD [address] [place] [address] 12/19/2023 11:30 AM CDT Office Visit [facility] Maternal Medicine Center [place] [address] [place] [phone] Raya Dickens MD [address] [place] [address] Nitin Morris MD [address] [place] [address] 12/26/2023 3:00 PM CDT Appointment [facility] Maternal Medicine [place] [address] [place] [phone] Raya Dickens MD [address] [place] [address] 12/26/2023 3:30 PM CDT Office Visit [facility] Maternal Medicine [place] [address] [place] [phone] Raya Dickens MD [address] [place] [address] 01/02/2024 2:15 PM CDT Appointment [facility] Maternal Medicine [place] [address] [place] [phone] Raya Dickens MD [address] [place], [place] [address] 01/02/2024 2:45 PM CDT Office Visit [facility] Maternal Medicine Center [place] [address] [place] [address] Raya Dickens MD [address] [place] [address] 01/09/2024 3:00 PM CDT Appointment [facility] Maternal Medicine [place] [address] [place] [address] Raya Dickens MD [address] [place], [place] [address] 01/09/2024 3:30 PM CDT Office Visit [facility] Maternal Medicine [place] [address] [place] [address] Raya Dickens MD [address] [place], [place] [address] 01/16/2024 2:15 PM CYANIDE POT TENDER Appointment [facility] Maternal Medicine [place] [address] [place] [address] Raya Dickens MD [address] [place] [address] 01/16/2024 2:45 PM CYANIDE POT TENDER Office Visit [facility] Maternal Medicine [place] [address] [place] [phone] Raya Dickens MD [address] [place] [address] documented as of this encounter Procedures Procedure [...] ? Study Date: ??10/08/2023 11:35am Pat. NO: ??[id number] ?Referring ??MD: RAYA SHAH Site: ? Extension Edger: Linda Hayde [facility] : ??2000 ?Age: ?? [...] The patient is scheduled to return to [facility] in 2 weeks for MCDA twin [...] MISHRA Study Date: 10/08/2023 11:35am Pat. NO: [id number] Referring MD: RAYA SHAH Site: Extension Edger: Linda Lock RDMS : 2000 Age: 22 [...] The patient is scheduled to return to [facility] in 2 weeks for MCDA twinsurveillance. [...] twin anemia polycythemia syndrome. Mica Aguilar MD [facility] US ORDERABLE S documented in this encounter Visit Diagnoses Diagnosis Monochorionic diamniotic twin gestation in first trimester documented in this encounter Care Teams Crocodile Farmer Relationship Specialty Start Date End Date No Ref-Primary, Physician PCP - General 07/22/23 Mica Aguilar MD [address] [facility] [address] [place] [address] Assigned OBGYN Provider 08/31/23 documented as of this encounter
--- OUTSIDE RECORDS SUMMARY | 2023-12-09 13:44 | XMS_ITS | Encounter Summary ---
Author Organization [place] Address [address] [place] [address]. [place] [address] Care Team Providers Care Clearing Supervisor Name Role Phone No Ref-Primary, Physician Primary Care Provider Vanita Lin MD Unavailable [phone] Reason for Referral * (Routine) - Closed Specialty Diagnoses / Procedures Referred By Contac t Referred To Contact Cardiology 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 Procedures Echo (TTE) Complete Vanita Lin MD [address] [place] [address] [facility] [address] [place] [phone] Referral ID Status Reason Start Date Expiration Date Visits Re quested Visits Authorized [id number] Closed 08/08/2023 08/07/2024 1 1 Reason for Visit * (Routine) - Closed Specialty Diagnoses / Procedures Referred By Contbeata t Referred To Contact Cardiology 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 Procedures Echo (TTE) Vanita Tolbert MD [address] [place] [address] [facility] [address] [place] [phone] Referral ID Status Reason Start Date Expiration Date Visits Re quested Visits Authorized [id number] Closed 08/08/2023 08/07/2024 1 1 Encounter Details Date Type Department Care Team (Latest Contact Info) Description 10/10/2023 11:09 AM CDT - 10/10/2023 11:59 PM CDT Hospital Encounter [facility] [address] [place] [phone] Vanita Lin MD [address] [facility] [address] [place] [address] Saray Coker Monochorionic diamniotic twin [...] Info) Description 12/19/2023 11:[address] [facility] Maternal Medicine Center [place] [address] [place] [address] Tomasa Dickens MD [address] [place] [address] Nitin Morris MD [address] [place] [address] 12/19/2023 11:30 AM CDT Office Visit [facility] Maternal Medicine [place] [address] [place] [address] Tomasa Dickens MD [address] [place], [place] [address] Nitin Morris MD [address] [place] [address] 12/26/2023 3:[address] [facility] Maternal Medicine [place] [address] [place] [phone] Tomasa Dickens MD [address] [place] [address] 12/26/2023 3:30 PM CDT Office Visit [facility] Maternal Medicine [place] [address] [place] [phone] Tomasa Dickens MD [address] [place] [address] 01/02/2024 2:[address] [facility] Maternal Medicine [place] [address] [place] [phone] Tomasa Dickens MD [address] [place], [place] [address] 01/02/2024 2:45 PM CDT Office Visit [facility] Maternal Medicine [place] [address] [place] [phone] Tomasa Dickens MD [address] [place] [address] 01/09/2024 3:00 PM CDT Appointment [facility] Medicine [place] [address] [place] [phone] Tomasa Dickens MD [address] [place], [place] [address] 01/09/2024 3:30 PM CDT Office Visit [facility] Medicine [place] [address] [place] [phone] Tomasa Dickens MD [address] [place], [place] [address] 01/16/2024 2:15 PM FIELD BROOMER Appointment [facility] Medicine [place] [address] [place] [phone] Tomasa Dickens MD [address] [place], [place] [address] 01/16/2024 2:45 PM FIELD BROOMER Office Visit 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 Study ID: [id number] ?[facility] ?[facility] ?[address] ?[place] [address] ? Echocardiogram Name: KRISTYN MISHRA Study Date: 10/10/2023 12:08 PM ? Patient Location: [facility] Gender: Female ?Patient Class: Outpatient [...] to the left atrium. There is laminar ydhea-og-hxml shunting across the foramen ovale. Atrioventricular valves: [...] Procedure Note Esequiel Grier MD - 10/10/2023 [id number]^MANUEL Study ID:[id number] [facility] [address] [address] Echocardiogram Name: KRISTYN MISHRA Study Date: 10/10/2023 12:08 PM Patient Location: [facility] Gender: Female Patient Class:Outpatient : [id number] Age: 22 yrs Ordering Provider: VANITA LIN Referring Provider: VANITA LIN Performed By: Doris Black Physician: Esequiel Grier MD Reason For Study: [facility]ionic [facility]otic [facility] Data: Number of fetuses: This is a [...] in to the left atrium. There is riafojgqmxkw-ml-ghik shunting across the foramen ovale. Atrioventricular valves: [...] trimester documented in this encounter Care Teams Clearing Supervisor Relationship Specialty Start Date End Date No Ref-Primary, Physician PCP - General 07/22/23 Vanita Lin MD [address] [place] [address] Assigned OBGYN Provider 08/31/23 documented as of this encounter
--- OUTSIDE RECORDS SUMMARY | 2023-12-09 13:44 | XMS_ITS | Encounter Summary ---
Author Organization [place] Address [address] [facility] [place] [address] Care Team Providers Care Winery Cellar Hand Name Role Phone No Ref-Primary, Physician Primary Care Provider Mica Aguilar MD Unavailable [phone] Encounter Details Date Type Department Care Team [...] Info) Description 12/19/2023 11:00 AM CDT Appointment [facility] Maternal Medicine Center [place] [address] [facility] [address] [place] [address] Tomasa Dickens MD [address] [place], [place] [address] Nitin Morris MD [address] [place] [address] 12/19/2023 11:30 AM CDT Office Visit [facility] Maternal Medicine Center [place] [address] [place] [phone] Tomasa Dickens MD [address] [place] [address] Nitin Morris MD [address] [place] [address] 12/26/2023 3:00 PM CDT Appointment [facility] Maternal Medicine [place] [address] [place] [phone] Tomasa Dickens MD [address] [place] [address] 12/26/2023 3:30 PM CDT Office Visit [facility] Maternal Medicine [place] [address] [place] [phone] Tomasa Dickens MD [address] [place] [address] 01/02/2024 2:15 PM CDT Appointment [facility] Maternal Medicine [place] [address] [place] [phone] Tomasa Dickens MD [address] [place] [address] 01/02/2024 2:45 PM CDT Office Visit [facility] Maternal Medicine [place] [address] [place] [phone] Tomasa Dickens MD [address] [place] [address] 01/09/2024 3:00 PM CDT Appointment [facility] Medicine [place] [address] [facility] [address] [facility] [address] [place] [phone] Tomasa Dickens MD [address] [place] [address] 01/09/2024 3:30 PM CDT Office Visit [facility] [place] [address] [place] [phone] Tomasa Dickens MD [address] [place], [place] [address] 01/16/2024 2:15 PM AIRLINE RADIO OPERATOR Appointment [facility] Medicine [place] [address] [facility] [address] [place] [phone] Tomasa Dickens MD [address] [place] [address] 01/16/2024 2:45 PM AIRLINE RADIO OPERATOR Office Visit [facility] Medicine [place] [address] [facility] [address] [place] [phone] Tomasa Dickens MD [address] [place], [place] [address] documented as of this encounter Visit Diagnoses Not on filedocumented in this encounter Care Teams Winery Cellar Hand Relationship Specialty Start Date End Date No Ref-Primary, Physician PCP - General 07/22/23 Mica Aguilar MD [address] [address] [place] [address] Assigned OBGYN Provider 08/31/23 documented as of this encounter
--- OUTSIDE RECORDS SUMMARY | 2023-12-09 13:44 | XMS_ITS | Encounter Summary ---
Author Organization [place] Address [address] [place] [address] Care Team Providers Care Conche Loader And Unloader Name Role Phone No Ref-Primary, Physician Primary Care Provider Mica Aguilar MD Unavailable [phone] Reason for Visit * Reason Comments Ultrasound RL2/UAR/MCA-M/D twin s, Twin A: EFW 12% Encounter Details Date Type Department Care Team (Latest Contact Info) Description 11/07/2023 2:00 PM CDT Office Visit [facility] Maternal Medicine Center [place] [address] [address] [facility] [address] [place] [address] Angelica Wright MD [address] [place] [address] Monochorionic diamniotic twin gestation in [...] 11/07/2023 2:00 PM CDT Patient presents to [facility] for RL2/UAR/MCA at 26w3d due to M/D twins, Twin A: EFW 12%. Positive movement x2. Denies LOF, vaginal bleeding or cramping/contractions. SBAR given to [facility] MD, see their note in Epic. documented in this encounter Plan of Treatment Upcoming Encounters Date Type Department Care Team (Late st Contact Info) Description 12/19/2023 11:00 AM CDT Appointment [facility] Maternal Medicine [facility] [address] [facility] [address] [place] [address] Tomasa Dickens MD [address] [place] [phone] Nitin Morris MD [address] [place] [address] 12/19/2023 11:30 AM CDT Office Visit [facility] Maternal Medicine [facility] [address] [facility] [address] [place] [phone] Tomasa Dickens MD [address] [place] [phone] Nitin Morris MD [address] [place] [id number] 12/26/2023 3:00 PM CDT Appointment [facility] Maternal Medicine [place] [address] [place] [phone] Tomasa Dickens MD [address] [place] [address] 12/26/2023 3:30 PM CDT Office Visit [facility] Maternal Medicine [place] [address] [place] [phone] Tomasa Dickens MD [address] [place] [address] 01/02/2024 2:15 PM CDT Appointment [facility] Maternal Medicine [place] [address] [place] [phone] Tomasa Dickens MD [address] [place] [address] 01/02/2024 2:45 PM CDT Office Visit [facility] Maternal Medicine [place] [address] [place] [phone] Tomasa Dickens MD [address] [place] [address] 01/09/2024 3:00 PM CDT Appointment [facility] Maternal Medicine [place] [address] [place] [phone] Tomasa Dickens MD [address] [place] [address] 01/09/2024 3:30 PM CDT Office Visit [facility] Medicine [facility] [address] [facility] [address] [place] [address] Tomasa Dickens MD [address] [place] [address] 01/16/2024 2:15 PM PACKAGING ENGINEER Appointment [facility] Medicine [place] [address] [facility] [address] [place] [phone] Tomasa Dickens MD [address] [place], [place] [address] 01/16/2024 2:45 PM PACKAGING ENGINEER Office Visit [facility] Medicine [place] [address] [facility] [address] [place] [phone] Tomasa Dickens MD [address] [place], [place] [address] documented as of this encounter Visit Diagnoses Diagnosis 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- Primary documented in this encounter Care Teams Conche Loader And Unloader Relationship Specialty Start Date End Date No Ref-Primary, Physician PCP - General 07/22/23 Mica Aguilar MD [address] [place] [address] Assigned OBGYN Provider 08/31/23 documented as of this encounter
--- OUTSIDE RECORDS SUMMARY | 2023-12-09 13:44 | XMS_ITS | Encounter Summary ---
Author Organization [place] Address [address] [facility] [place] [address] Care Team Providers Care Power Operator Name Role Phone No Ref-Primary, Physician Primary Care Provider Mica Aguilar MD Unavailable [phone] Encounter Details Date Type Department Care [...] Info) Description 12/19/2023 11:00 AM CDT Appointment [facility] Maternal Medicine Center [place] [address] [facility] [address] [place] [address] Tomasa Dickens MD [address] [place], [place] [address] Nitin Morris MD [address] [place] [address] 12/19/2023 11:30 AM CDT Office Visit [facility] Maternal Medicine Center [place] [address] [place] [phone] Tomasa Dickens MD [address] [place] [address] Nitin Morris MD [address] [place] [address] 12/26/2023 3:00 PM CDT Appointment [facility] Maternal Medicine [place] [address] [place] [phone] Tomasa Dickens MD [address] [place] [address] 12/26/2023 3:30 PM CDT Office Visit [facility] Maternal Medicine [place] [address] [place] [phone] Tomasa Dickens MD [address] [place] [address] 01/02/2024 2:15 PM CDT Appointment [facility] Maternal Medicine [place] [address] [place] [phone] Tomasa Dickens MD [address] [place] [address] 01/02/2024 2:45 PM CDT Office Visit [facility] Maternal Medicine [place] [address] [place] [phone] Tomasa Dickens MD [address] [place] [address] 01/09/2024 3:00 PM CDT Appointment [facility] Medicine [place] [address] [facility] [address] [place] [phone] Tomasa Dickens MD [address] [place] [address] 01/09/2024 3:30 PM CDT Office Visit [facility] [place] [address] [facility] [address] [place] [phone] Tomasa Dickens MD [address] [place], [place] [address] 01/16/2024 2:15 PM BURSAR Appointment [facility] Medicine [place] [address] [facility] [address] [place] [phone] Tomasa Dickens MD [address] [place] [address] 01/16/2024 2:45 PM BURSAR Office Visit [facility] Medicine [place] [address] [facility] [address] [place] [phone] Tomasa Dickens MD [address] [place], [place] [address] documented as of this encounter Visit Diagnoses Not on filedocumented in this encounter Care Teams Power Operator Relationship Specialty Start Date End Date No Ref-Primary, Physician PCP - General 07/22/23 Mica Aguilar MD [address] [address] [place] [address] Assigned OBGYN Provider 08/31/23 documented as of this encounter
--- OUTSIDE RECORDS SUMMARY | 2023-12-09 13:44 | XMS_ITS | Encounter Summary ---
Author Organization [place] Address [facility] [place] [address] Care Team Providers Care Mail Delivery Supervisor Name Role Phone No Ref-Primary, Physician Primary Care Provider Mica Aguilar MD Unavailable [phone] Reason for Referral * Diagnostic Imaging Ultrasound (Routine) - Pending Review Specialty Diagnoses / Procedures Referred By Contbeata t Referred To Contact Radiology. 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 Procedures MFM Twins US Comprehensive F/U MFM Twins US Comprehensive F/U Raya Dickens MD [address] [place] [address] Referral ID Status Reason Start Date Expiration Date V isits Requested Visits Authorized [id number] Pending Review 10/24/2023 10/23/2024 1 1 Reason for Visit * Diagnostic Imaging Ultrasound (Routine) - Pending Review Specialty Diagnoses / Procedures Referred By Contac t Referred To Contact Radiology. 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 Procedures MFM Twins US Comprehensive F/U MFM Twins US Comprehensive F/U Raya Dickens MD [address] [place] [address] Referral ID Status Reason Start Date Expiration Date V isits Requested Visits Authorized [id number] Pending Review 10/24/2023 10/23/2024 1 1 Encounter Details Date Type Department Care Team (Latest Contact Info) Description 11/07/2023 1:01 PM CDT - 11/07/2023 11:59 PM CDT Hospital Encounter [facility] Medicine [facility] [address] [facility] [place] [phone] Angelica Wright MD [address] [place] [address] Monochorionic diamniotic twin gestation in [...] Description 12/19/2023 11:[address] [facility] Medicine [facility] [address] [facility] [facility] [address] [place] [phone] Raya Dickens MD [address] [place] [address] Nitin Morris MD [address] [place] [address] 12/19/2023 11:30 AM CDT Office Visit [facility] Maternal Medicine Center [place] [address] [place] [address] Raya Dickens MD [address] [place] [address] Nitin Morris MD [address] [place] [address] 12/26/2023 3:00 PM CDT Appointment [facility] Maternal Medicine [place] [address] [place] [phone] Raya Dickens MD [address] [place], [place] [address] 12/26/2023 3:30 PM CDT Office Visit [facility] Maternal Medicine [place] [address] [place] [phone] Raya Dickens MD [address] [place] [address] 01/02/2024 2:15 PM CDT Appointment [facility] Maternal Medicine [place] [address] [place] [phone] Raya Dickens MD [address] [place] [address] 01/02/2024 2:45 PM CDT Office Visit [facility] Maternal Medicine [place] [address] [facility] [address] [place] [phone] Raya Dickens MD [address] [place] [address] 01/09/2024 3:00 PM CDT Appointment [facility] Maternal Medicine [place] [address] [facility] [facility] [address] [place] [phone] Raya Dickens MD [address] [place], [place] [address] 01/09/2024 3:30 PM CDT Office Visit [facility] Maternal Medicine [place] [address] [facility] [facility] [address] [place] [phone] Raya Dickens MD [address] [place], [place] [address] 01/16/2024 2:15 PM ELECTRICAL INTEGRATOR Appointment [facility] Maternal Medicine [place] [address] [facility] [facility] [address] [place] [phone] Raya Dickens MD [address] [place] [address] 01/16/2024 2:45 PM ELECTRICAL INTEGRATOR Office Visit [facility] Maternal Medicine [place] [address] [facility] [facility] [address] [place] [phone] Raya Dickens MD [address] [place], [place] [address] documented as of this encounter Procedures Procedure [...] ? Study Date: ??11/07/2023 1:25pm Pat. NO: ??[id number] ?Referring ??MD: RAYA SHAH Site: ? [place] Stitcher: Sindhu Maurer RDMS : ??2000 ?Age: ?? [...] ?1 lb 13 ?oz EFW by ?Hadlock ([id number]-NM-ZP-FL) EFW discordance ?8.2 ? % Head / Face / Neck Biometry: Poultry Eviscerator ?5.2 ? mm CM ? 4.2 ? [...] lb 15 ? oz EFW by ?Hadlock (EPX-YG-HB-FL) EFW discordance ?8.2 ? % Head / Face / Neck Biometry: Poultry Eviscerator ?7.7 ? mm CM ? 4.0 ? mm Fetus 1: ANATOMY ----- The following structures appear normal: Head / Neck ? Cranium. Head size. Head shape. Lateral ventricles. Midline falx. Cavum septi pellucidi. Cerebellum. Cisterna magna. Thalami. Face ? Lips. Profile. Nose. Heart / Thorax ?RVOT view. LVOT view. 6-jndcpn-jzjfisf view. ? Diaphragm. Abdomen ? Stomach. Kidneys. [...] Heart / Thorax ?RVOT view. LVOT view. 5-gcceph-vihqmle view. ? Diaphragm. Abdomen ? Stomach. Kidneys. [...] the patient (reviewing medical records/tests), in direct agro-kt-kyry contact with the patient during her visit with the majority spent counseling and discussing the plan of care and documenting the visit in the electronic medical record. Please see note for details. Procedure Note Angelica Wright MD - 11/07/2023 Comp Follow Up ----- Pat. Name: KRISTYN MISHRA Study Date: 11/07/2023 1:25pm Pat. NO: [id number] Referring MD: RAYA SHAH Site: [place] Stitcher: Sindhu Maurer RDMS : 2000 Age: 23 [...] EFW (lb,oz) 1 lb 13oz EFW by Hadlock(UMF-SF-TW-FL) EFW discordance 8.2% Head / Face / Neck Biometry: Poultry Eviscerator 5.2mm CM 4.2mm Fetus 2: BIOMETRY ----- BPD 63.7mm 25w 5dHadlock OFD 87.1mm 26w 0dNicolaides HC 241.1mm 26w 1dHadlock Cerebellum tr 30.0mm 26w 4dNicolaides AC 226.7mm 27w 0d 61%Hadlock Femur 44.7mm 24w 5dHadlock Weight Calculation: EFW 891g 26%Hadlock EFW (lb,oz) 1 lb 15oz EFW by Hadlock(JHB-FQ-AG-FL) EFW discordance 8.2% Head / Face / Neck Biometry: Poultry Eviscerator 7.7mm CM 4.0mm Fetus 1: ANATOMY ----- The following structures appear normal: Head / Neck Cranium. Head size. Head shape.Lateral ventricles. Midline falx. Cavum septi pellucidi. Cerebellum.Cisterna magna. Thalami. Face Lips. Profile. Nose. Heart / Thorax RVOT view. LVOT view. 9-tbbfkb-mlcmldemobn. Diaphragm. Abdomen Stomach. Kidneys. Bladder. Genitals. Spine Cervical spine. Thoracic spine.Lumbar spine. Sacral spine. The following structures were documented previously: Heart / Thorax 4-chamber view. sex: female. Fetus 2: ANATOMY ----- The following structures appear normal: Head / Neck Cranium. Head size. Head shape.Lateral ventricles. Midline falx. Cavum septi pellucidi. Cerebellum.Cisterna magna. Thalami. Face Lips. Nose. Heart / Thorax RVOT view. LVOT view. 4-etftem-yezfqzuhpgp. Diaphragm. Abdomen Stomach. Kidneys. Bladder. Spine Cervical [...] see the patient (reviewing medical records/tests), in zpdccatpnw-tl-ebvf contact with the patient during her visit [...] anemia polycythemia syndrome. Raya Dickens MD IMG MF US ORDERAB LES documented in this encounter Visit Diagnoses Diagnosis 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 documented in this encounter Care Teams Mail Delivery Supervisor Relationship Specialty Start Date End Date No Ref-Primary, Physician PCP - General 07/22/23 Mica Aguilar MD [address] [place] [address] Assigned OBGYN Provider 08/31/23 documented as of this encounter
--- OUTSIDE RECORDS SUMMARY | 2023-12-09 13:44 | XMS_ITS | Encounter Summary ---
Author Organization [place] Address [address] [place] [address]. [place] [address] Care Team Providers Care Pathological Technician Name Role Phone No Ref-Primary, Physician Primary Care Provider Mica Aguilar MD Unavailable [phone] Encounter Details Date Type Department Care Team (Late st Contact Info) Description 10/10/2023 Office Visit [facility] Heart Care [address] [place] [phone] Esequiel Grier MD [address] [place] [address] [phone] cardiac disease affecting , fetus 1 of [...] Grier MD - 10/10/2023 12:27 PM CDT [facility] Consult Note Patient: Kyara Villegas Date of : 2000 Age: [age] year old Date of Visit: 10/10/2023 PCP: No Ref-Primary, Physician Dear No ref. provider found: I had the pleasure of seeing Kyara Villegas at the [facility] on 10/10/2023 in cardiology consultation for echocardiogram [...] her partner with the assistance of a american sign language interpreter. She is aware that the study was [...] care. I spent approximately 20 minutes in wzsx-xq-ncia time reviewing the above considerations. Esequiel Grier M.D. Pediatric Cardiology [address], 5th floor, [facility] [address] documented in this encounter Plan of Treatment Upcoming Encounters Date Type Department Care Team (Late st Contact Info) Description 12/19/2023 11:00 AM CDT Appointment [facility] Maternal Medicine [place] [address] [place] [phone] Tomasa Dickens MD [address] [place] [address] Nitin Morris MD [address] [place], [place] [address] 12/19/2023 11:30 AM CDT Office Visit [facility] Medicine [place] [address] [facility] [address] [place] [phone] Tomasa Dickens MD [address] [place], [place] [address] [phone] Nitin Morris MD [address] [place], [place] [address] 12/26/2023 3:00 PM CDT Appointment [facility] Medicine [place] [address] [place] [phone] Tomasa Dickens MD [address] [place], [place] [address] 12/26/2023 3:30 PM CDT Office Visit [facility] Maternal Medicine [place] [address] [facility] [address] [place] [phone] Tomasa Dickens MD [address] [place], [place] [address] 01/02/2024 2:15 PM CDT Appointment [facility] Maternal Medicine [place] [address] [place] [phone] Tomasa Dickens MD [address] [place] [address] 01/02/2024 2:45 PM CDT Office Visit [facility] Maternal Medicine [place] [address] [place] [phone] Tomasa Dickens MD [address] [place] [address] 01/09/2024 3:00 PM CDT Appointment [facility] Maternal Medicine [place] [address] [place] [phone] Tomasa Dickens MD [address] [place] [address] 01/09/2024 3:30 PM CDT Office Visit [facility] Maternal Medicine [place] [address] [place] [phone] Tomasa Dickens MD [address] [place] [address] 01/16/2024 2:15 PM PERSONNEL MANAGER Appointment [facility] Maternal Medicine [place] [address] [place] [phone] Tomasa Dickens MD [address] [place] [address] 01/16/2024 2:45 PM PERSONNEL MANAGER Office Visit [facility] Maternal Medicine [place] [address] [facility] [address] [place] [phone] Tomasa Dickens MD [address] [place], [place] [address] documented as of this encounter Visit Diagnoses Diagnosis cardiac disease affecting , fetus 1 of multiple gestation- Primary cardiac disease affecting , fetus 2 of multiple gestation documented in this encounter Care Teams Pathological Technician Relationship Specialty Start Date End Date No Ref-Primary, Physician PCP - General 07/22/23 Mica Aguilar MD [address] [place] [address] Assigned OBGYN Provider 08/31/23 documented as of this encounter
--- OUTSIDE RECORDS SUMMARY | 2023-12-09 13:44 | XMS_ITS | Encounter Summary ---
Author Organization [place] Address [address] [facility] [place] [address] Care Team Providers Care Pre K Special Education Teacher Name Role Phone No Ref-Primary, Physician Primary Care Provider Mica Aguilar MD Unavailable [phone] Encounter Details Date Type Department Care [...] Info) Description 12/19/2023 11:00 AM CDT Appointment [facility] M[facility] Medicine Center [place] [address] [facility] [address] [place] [address] Tomasa Dickens MD [address] [place], [place] [address] Nitin Morris MD [address] [place] [address] 12/19/2023 11:30 AM CDT Office Visit [facility] Maternal Medicine Center [place] [address] [place] [phone] Tomasa Dickens MD [address] [place] [address] Nitin Morris MD [address] [place] [address] 12/26/2023 3:00 PM CDT Appointment [facility] Maternal Medicine [place] [address] [place] [phone] Tomasa Dickens MD [address] [place] [address] 12/26/2023 3:30 PM CDT Office Visit [facility] Maternal Medicine [place] [address] [place] [phone] Tomasa Dickens MD [address] [place] [address] 01/02/2024 2:15 PM CDT Appointment [facility] Maternal Medicine [place] [address] [place] [phone] Tomasa Dickens MD [address] [place] [address] 01/02/2024 2:45 PM CDT Office Visit [facility] Maternal Medicine [place] [address] [place] [phone] Tomasa Dickens MD [address] [place] [address] 01/09/2024 3:00 PM CDT Appointment [facility] Medicine [place] [address] [facility] [address] [place] [phone] Tomasa Dickens MD [address] [place] [address] 01/09/2024 3:30 PM CDT Office Visit [facility] [place] [address] [facility] [address] [place] [phone] Tomasa Dickens MD [address] [place], [place] [address] 01/16/2024 2:15 PM EMPLOYMENT ADVISOR Appointment [facility] Medicine [place] [address] [facility] [address] [place] [phone] Tomasa Dickens MD [address] [place] [address] 01/16/2024 2:45 PM EMPLOYMENT ADVISOR Office Visit [facility] Medicine [place] [address] [facility] [address] [place] [phone] Tomasa Dickens MD [address] [place], [place] [address] documented as of this encounter Visit Diagnoses Not on filedocumented in this encounter Care Teams Pre K Special Education Teacher Relationship Specialty Start Date End Date No Ref-Primary, Physician PCP - General 07/22/23 Mica Aguilar MD [address] [address] [place] [address] Assigned OBGYN Provider 08/31/23 documented as of this encounter
--- OUTSIDE RECORDS SUMMARY | 2023-12-09 13:44 | XMS_ITS | Encounter Summary ---
Author Organization [place] Address [facility] [place] [address] Care Team Providers Care Large Animal Husbandry Technician Name Role Phone No Ref-Primary, Physician Primary Care Provider Mica Aguilar MD Unavailable [phone] Reason for Referral * Diagnostic Imaging Ultrasound (Routine) - Pending Review Specialty Diagnoses / Procedures Referred By Contac t Referred To Contact Radiology. 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 Procedures MFM Twins Comprehensive F/U Raya Dickens MD [address] [place] [address] Referral ID Status Reason Start Date Expiration Date V isits Requested Visits Authorized [id number] Pending Review 10/24/2023 10/23/2024 1 1 Encounter Details Date Type Department Care Team (Latest Contact Info) Description 11/21/2023 9:59 AM CDT - 11/21/2023 11:59 PM CDT Hospital Encounter [facility] Medicine [facility] [address] [facility] [facility] [address] [place] [phone] Raya Dickens MD [address] [place] [address] Nitin Morris MD [address] [place] [address] Monochorionic diamniotic twin gestation in [...] Info) Description 12/19/2023 11:00 AM CDT Appointment [facility] Medicine [facility] [address] [facility] [address] [place] [phone] Raya Dickens MD [address] [place] [address] Nitin Morris MD [address] [place] [address] 12/19/2023 11:30 AM CDT Office Visit [facility] Maternal Medicine [place] [address] [place] [phone] Raya Dickens MD [address] [place] [address] Nitin Morris MD [address] [place] [address] 12/26/2023 3:00 PM CDT Appointment [facility] Maternal Medicine [place] [address] [place] [phone] Raya Dickens MD [address] [place] [address] 12/26/2023 3:30 PM CDT Office Visit [facility] Maternal Medicine [place] [address] [place] [phone] Raya Dickens MD [address] [place] [address] 01/02/2024 2:15 PM CDT Appointment [facility] Maternal Medicine [place] [address] [place] [phone] Raya Dickens MD [address] [place], [place] [address] 01/02/2024 2:45 PM CDT Office Visit [facility] Medicine [place] [address] [facility] [address] [place] [phone] Raya Dickens MD [address] [place] [address] 01/09/2024 3:00 PM CDT Appointment [facility] Medicine [place] [address] [facility] [address] [place] [phone] Raya Dickens MD [address] [place] [address] 01/09/2024 3:30 PM CDT Office Visit [facility] Medicine [place] [address] [facility] [address] [place] [phone] Raya Dickens MD [address] [place] [address] 01/16/2024 2:15 PM CUSTOMER CONSULTING MANAGER Appointment [facility] Medicine [place] [address] [facility] [address] [place] [phone] Raya Dickens MD [address] [place] [address] 01/16/2024 2:45 PM CUSTOMER CONSULTING MANAGER Office Visit [facility] Maternal Medicine [place] [address] [facility] [address] [place] [phone] Raya Dickens MD [address] [place] [address] documented as of this encounter Procedures Procedure [...] Pat. Name: KRISTYN MISHRA ? Study Date: ??11/21/2023 9:59am Pat. NO: ??[id number] ?Referring ??MD: RAYA SHAH Site: ? Shipping Clerk Packing: [address] RDMS : ??2000 ?Age: ?? [...] ?2 lb 6 ?oz EFW by ?Hadlock (BTS-ZY-QY-FL) EFW discordance ?9.2 ? % Head / Face / Neck Biometry: Mechanical Engineering Manager ?5.5 ? mm Fetus 2: BIOMETRY ----- [...] ?2 lb 10 ?oz EFW by ?Hadlock (HHF-AN-MM-FL) EFW discordance ?9.2 ? % Fetus 1: ANATOMY ----- The following structures appear normal: Abdomen ? Bladder. sex: female. Fetus 2: ANATOMY ----- The following structures appear normal: Abdomen ? Bladder. sex: female. Fetus 1: DOPPLER ----- Umbilical Artery: normal. Sampling site: middcrd PI ? 1.25 ? 89% ? Kunal [...] medical record, and communicating with other health critical care unit nurse and/or care coordination. Procedure Note Nitin Morris MD - 11/21/2023 Comp Follow Up ----- Pat. Name: KRISTYN MISHRA Study Date: 11/21/2023 9:59am Pat. NO: [id number] Referring MD: RAYA SHAH Site: Shipping Clerk Packing: [address] RDMS : 2000 Age: 23 [...] EFW (lb,oz) 2 lb 6oz EFW by Hadlock(JYF-TD-CI-FL) EFW discordance 9.2% Head / Face / Neck Biometry: Mechanical Engineering Manager 5.5mm Fetus 2: BIOMETRY ----- BPD 69.9mm 28w 1dHadlock OFD 94.3mm 27w 6dNicolaides HC 263.3mm 28w 5dHadlock AC 247.1mm 29w 0d 59%Hadlock Femur 49.7mm 26w 5dHadlock Humerus 45.2mm 26w 6dJeanty Weight Calculation: EFW 1,180g 27%Hadlock EFW (lb,oz) 2 lb 10oz EFW by Hadlock(ZFH-PC-NP-FL) EFW discordance 9.2% Fetus 1: ANATOMY ----- [...] electronic medical record, andcommunicating with other health critical care unit nurse and/or carecoordination. IMPRESSION ----- Monochorionic diamniotic twin [...] trimester documented in this encounter Care Teams Large Animal Husbandry Technician Relationship Specialty Start Date End Date No Ref-Primary, Physician PCP - General 07/22/23 Mica Aguilar MD [address] [place] [address] Assigned OBGYN Provider 08/31/23 documented as of this encounter
--- OUTSIDE RECORDS SUMMARY | 2023-12-09 13:44 | XMS_ITS | Encounter Summary ---
Author Organization [facility] Address [address] [facility] [place] [address] Care Team Providers Care Direct Care Supervisor Name Role Phone No Ref-Primary, Physician Primary Care Provider Mica Aguilar MD Unavailable [phone] Encounter Details Date Type Department Care Team [...] Info) Description 12/19/2023 11:00 AM CDT Appointment [facility] [place] [address] [place] [address] Tomasa Dickens MD [address] [place], [place] [phone] Nitin Morris MD [address] [place] [address] 12/19/2023 11:30 AM CDT Office Visit [facility] [place] [address] [place] [phone] Tomasa Dickens MD [address] [place] [address] Nitin Morris MD [address] [place] [address] 12/26/2023 3:00 PM CDT Appointment [facility] [place] [address] [place] [phone] Tomasa Dickens MD [address] [place] [address] 12/26/2023 3:30 PM CDT Office Visit [facility] [place] [address] [place] [phone] Tomasa Dickens MD [address] [place] [address] 01/02/2024 2:15 PM CDT Appointment [facility] [place] [address] [place] [phone] Tomasa Dickens MD [address] [place] [address] 01/02/2024 2:45 PM CDT Office Visit [facility] [place] [address] [place] [phone] Tomasa Dickens MD [address] [place] [address] 01/09/2024 3:00 PM CDT Appointment [facility] [place] [address] [facility] [address] [place] [phone] Tomasa Dickens MD [address] [place] [address] 01/09/2024 3:30 PM CDT Office Visit [facility] [place] [address] [facility] [address] [place] [phone] Tomasa Dickens MD [address] [place], [place] [address] 01/16/2024 2:15 PM WELL CONTROL INSTRUCTOR Appointment [facility] [place] [address] [facility] [address] [place] [phone] Tomasa Dickens MD [address] [place] [address] 01/16/2024 2:45 PM WELL CONTROL INSTRUCTOR Office Visit [facility] [place] [address] [facility] [address] [place] [phone] Tomasa Dickens MD [address] [place], [place] [phone] documented as of this encounter Visit Diagnoses Not on filedocumented in this encounter Care Teams Direct Care Supervisor Relationship Specialty Start Date End Date No Ref-Primary, Physician PCP - General 07/22/23 Mica Aguilar MD [address] [address] [place] [address] Assigned OBGYN Provider 08/31/23 documented as of this encounter
--- OUTSIDE RECORDS SUMMARY | 2023-12-09 13:45 | XMS_ITS | Clinical Summary ---
Author Organization [facility] Address [place], [place] [address] Care Team Providers Care Communications Superintendent Name Role Phone None Primary Care Provider [...] of Treatment Not on file Care Teams Communications Superintendent Relationship Specialty Start Date End Date None . PCP - General 06/23/23
--- OUTSIDE RECORDS SUMMARY | 2023-12-09 13:45 | XMS_ITS | Encounter Summary ---
Author Organization [facility] Address [address] [facility] [place] [address] Care Team Providers Care Elementary Instructional Coach Name Role Phone No Ref-Primary, Physician Primary Care Provider Mica Aguilar MD Unavailable [phone] Reason for Visit * Reason Comments cerclage * Auth/Cert (Routine) Specialty Diagnoses / Procedures Referred By Contac t Referred To Contact procurement professional Diagnoses Maternity*FERNANDO: 02/10/24*Curry/Di Twins Cervical shortening affecting in second trimester Ur [facility] [address] [place] [address] Referral ID Status Reason Start Date Expiration Date Visits Re quested Visits Authorized [id number] 1 1 Encounter Details Date Type Department Care Team (Late st Contact Info) Description 09/27/2023 9:00 AM CDT - 09/27/2023 10:[address] [facility] [address] [place] [address] Heidi Swain MD [address] [facility] [address] [place] [address] Cerclage cervical Surgery Details Date/Time [...] Swain MD - 09/28/2023 9:30 AM CDT [facility] Discharge Summary Kyara Villegas Age: [age] year old Date of : 2000 Date of Admission: 09/26/2023 Date of Discharge: 09/28/23 Admitting Physician: Heidi Swain MD Discharge Physician: Heidi Swain MD Admission Diagnosis: - Curry/di twin intrauterine at 20w3d - Cervical insufficiency by US and exam Discharge Diagnosis: - Curry/di twin intrauterine at 20w5d - Cervical insufficiency [...] your medicines These medications were sent to [facility] [address] [place] [address], [facility] [address] acetaminophen 325 MG tablet Brief History of [...] cerclage was recommended and pt transferred to [facility] for further evaluation prior to planned [...] unwell feeling Follow up: Follow up in [facility] clinic scheduled appointment this coming week [...] tablet by mouth daily Reyna Stern MD Jewelry Drilling Machine Operator Resident, PGY-3 09/28/2023 9:35 AM Physician Attestation [...] puede myron comenzado el trabajo de parto. Saxton significa que bravo tenido al menos 6 [...] simone, 2023 Versi??n del contenido: 14.0 ?? [employer]. Las instrucciones de cuidado fueron adaptadas bajo licencia por tian profesional de atenci??n m??dica. Si usted tiene preguntas sobre gilles afecci??n m??dica o sobre estas instrucciones, siempre preguntea tian profesional de kel. [employer] niega toda garant??a o responsabilidad por tian [...] Fetus B: FHR 140s Reyna Stern MD Jewelry Drilling Machine Operator Resident, PGY-3 09/28/2023 11:54 AM * Heidi [...] agreement with the plan. Reyna Stern MD Jewelry Drilling Machine Operator Resident, PGY-3 09/28/2023 9:14 AM Physician Attestation I saw and evaluated this patient prior to discharge. I discussed the patient with the resident/fellow and agree with plan of care as documented in the note. I personally reviewed vital signs, labs, imaging, and discussed the following plan with the patient, with the assistance of a interpreter via iPad. . I personally spent 15 [...] Fetus 2: 135 bpm via bedside ultrasound [place]: No contractions overnight A/P: 22 year old [...] and Physical September 26, 2023 Kyara Villegas [id number] HPI Kyara Villegas is a 22 year [...] cerclage was recommended and pt transferred to [facility] for further evaluation prior to planned [...] physiologic discharge without blood on collected swabs [place]: quiet x20 min, plan to continue x2h [...] Abnormality Status --------- ------ Adult Type and Screen[[id number]] In process Please view results for these [...] Abnormality Status --------- ------ Extra Serum Separator Tu...[[id number]] In process Extra Green Top ([place]...[[id number]] In process Please view results for these tests on the individual orders. Imaging [facility] US 09/26/2023 Monochorionic diamniotic twin gestation [...] of Dr. Heidi Swain. Raven Sauer MD AIRPLANE ELECTRICAL REPAIRER PGY-3 09/26/2023 6:38 PM Physician Attestation I [...] instructions reviewed with patient and with ipad daycare worker and patient states no questions. She is [...] pain that relieved with heat back Tylenol, [place] was quite. Patient tolerated food. Plan is [...] shortened cervix noted yesterday (09/25) at our [facility] clinic during her first comprehensive anatomy ultrasound measuring 8 mm. Subsequent pelvic examination revealed a visually dilated cervix at 1 cm and digital examination revealing cervix to be 1/50 and soft in consistency. She was recommended to go th [facility] for further evaluation. After counseling [...] Kyara Villegas Primary Care Provider:Heidi Diane Primary Clinic:[facility] Gestational Age: 20w3d Kyara Villegas presents [...] Info) Description 12/19/2023 11:00 AM CDT Appointment [facility] Medicine [place] [address] [facility] [address] [place] [address] [phone] Tomasa Dickens MD [address] [place] [address] [phone] Nitin Morris MD [address] [place] [address] [phone] 12/19/2023 11:30 AM CDT Office Visit [facility] [place] [address] [facility] [address] [place] [phone] Tomasa Dickens MD [address] [place] [address] [phone] Nitin Morris MD [address] [place] [address] [phone] 12/26/2023 3:00 PM CDT Appointment [facility] [place] [address] [facility] [address] [place] [phone] Tomasa Dickens MD [address] [place] [address] [phone] 12/26/2023 3:30 PM CDT Office Visit [facility] Medicine [place] [address] [place] [phone] Tomasa Dickens MD [address] [place] [address] 01/02/2024 2:15 PM CDT Appointment [facility] Medicine [place] [address] [place] [phone] Tomasa Dickens MD [address] [place] [address] 01/02/2024 2:45 PM CDT Office Visit [facility] Medicine [place] [address] [place] [phone] Tomasa Dickens MD [address] [place] [address] 01/09/2024 3:00 PM CDT Appointment [facility] Medicine [place] [address] [place] [phone] Tomasa Dickens MD [address] [place] [address] 01/09/2024 3:30 PM CDT Office Visit [facility]aternal Medicine [place] [address] [place] [phone] Tomasa Dickens MD [address] [place] [address] 01/16/2024 2:15 PM WHEEL SETTER Appointment [facility]aternal Medicine [place] [address] [place] [address] [place] [phone] Tomasa Dickens MD [address] [place] [address] 01/16/2024 2:45 PM WHEEL SETTER Office Visit [facility] Medicine [facility] [address] [place] [phone] Tomasa Dickens MD [address] [place] [address] documented as of this encounter Procedures Procedure [...] - MICRO GENERAL ORDERABLES [facility] Inf. Diseases Diag. Lab [address] [facility] [place] [address] * (ABNORMAL) UA with Microscopic (09/26/2023 [...] 09/26/2023 6:37 PM CDT UR LABORATORY Specific [place] Urine 1.018 1.003 - 1.035 09/26/2023 6:37 [...] MD LAB - URINE ORDERABLES UR LABORATORY [facility] Acute Care Lab [address] [facility], [address] [place] [address] * Chlamydia trachomatis PCR (09/26/2023 5:50 PM CDT) Chlamydia trachomatis Negative Negative 09/27/2023 11:37 AM CDT [facility] Comment:A negative result by asbestos abatement technician mediated amplification does not preclude the presence of C. trachomatis infection because results are dependent on proper and adequate collection, absence of inhibitors and sufficient rRNA to be detected. Swab VAGINAL STRUCTURE / Unknown Non-blood Collection / Unknown 09/26/2023 5:50 PM CDT 09/26/2023 6:03 PM CDT Socorro Danielson MD LAB - MICRO GENERAL ORDERABLES [facility] Inf. Diseases Diag. Lab [address] [facility], [address] [place] [phone] * Neisseria gonorrhoea PCR (09/26/2023 5:50 PM CDT) Neisseria gonorrhoeae Negative Negative 09/27/2023 11:37 AM CDT [facility] Comment:Negative for N. gono rrhoeae rRNA by asbestos abatement technician mediated amplification. A negative result by asbestos abatement technician mediated amplification does not preclude the presence of C. trachomatis infection because results are dependent on proper and adequate collection, absence of inhibitors and sufficient rRNA to be detected. Swab VAGINAL STRUCTURE / Unknown Non-blood Collection / Unknown 09/26/2023 5:50 PM CDT 09/26/2023 6:03 PM CDT Socorro aDnielson MD LAB - MICRO GENERAL ORDERABLES [facility] Inf. Diseases Diag. Lab [address] [facility], [address] [place] [address], [facility] * (ABNORMAL) Wet prep (09/26/2023 5:50 PM CDT) Trichomonas Absent Absent XIOMARA 09/26/2023 6:28 PM CDT UR LABORATORY Yeast Absent Absent XOIMARA 09/26/2023 6:28 PM CDT UR LABORATORY Clue Cells Absent Absent XIOMARA 09/26/2023 6:28 PM CDT UR LABORATORY WBCs/high power field 1+(A) None XIOMARA 09/26/2023 6:28 PM CDT UR LABORATORY Swab VAGINAL STRUCTURE / Unknown Non-blood Collection / Unknown 09/26/2023 5:50 PM CDT 09/26/2023 6:03 PM CDT Socorro Danielson MD LAB - MICRO GENERAL ORDERABLES UR LABORATORY [facility] [place] Acute Care Lab [address] [facility], [address] [place] [address], [facility] * Extra Green Top ([place] Heparin) Tube (09/26/2023 5:15 PM CDT) Hold Specimen JIC 09/26/2023 6:32 PM CDT UR LABORATORY Blood STRUCTURE OF RIGHT UPPER LIMB / Unknown Venipuncture / Unknown 09/26/2023 5:15 PM CDT 09/26/2023 5:25 PM CDT Heidi Swain MD LAB - BLOOD ORDERA BLES UR LABORATORY [facility] Acute Care Lab [address] [place] [address], Room [place] [phone] [place] [address] * Extra Serum Separator Tube (SST) (09/26/2023 5:15 PM CDT) Hold Specimen JIC 09/26/2023 6:32 PM CDT UR LABORATORY Blood STRUCTURE OF RIGHT UPPER LIMB / Unknown Venipuncture / Unknown 09/26/2023 5:15 PM CDT 09/26/2023 5:24 PM CDT Heidi Swain MD LAB - BLOOD ORDERA BLES Performing Organization Address City/[facility]/ZIP Co de Phone Number UR LABORATORY [facility] Acute Care Lab [address] [place] [address], [address] * Adult Type and Screen (09/26/2023 5:15 PM CDT) ABO/RH(D) A POS 09/26/2023 4:59 PM CDT UR BLOOD BANK Antibody Screen Negative Negative 09/26/2023 4:59 PM CDT UR BLOOD BANK SPECIMEN EXPIRATION DATE [id number] 09/26/2023 4:59 PM CDT UR BLOOD BANK Blood STRUCTURE OF RIGHT UPPER LIMB / Unknown Venipuncture / Unknown 09/26/2023 5:15 PM CDT 09/26/2023 5:20 PM CDT Socorro Danielson MD LAB - BLOOD BANK TEST ORDER UR BLOOD BANK [facility] Blood Components Lab [address] [place] [address], [address] [phone], [place] * (ABNORMAL) CBC with platelets (09/26/2023 [...] MD LAB - BLOOD ORDERABLES UR LABORATORY [facility] Acute Care Lab [address] [facility], [address] [place] [address] documented in this encounter Visit [...] Ngozi Granados, [phone] (Restarted - Provider: Ngozi Granados, RN) lactated [...] Pre-procedure documented in this encounter Care Teams Elementary Instructional Coach Relationship Specialty Start Date End Date No Ref-Primary, Physician PCP - General 07/22/23 Mica Aguilar MD [address] [facility] [address] [place] [address] Assigned OBGYN Provider 08/31/23 documented as of this encounter
--- OUTSIDE RECORDS SUMMARY | 2023-12-09 13:45 | XMS_ITS | Encounter Summary ---
Author Organization [place] Address [address] [facility] [place] [address] Care Team Providers Care Financial Advisor Name Role Phone No Ref-Primary, Physician Primary Care Provider Mica Aguilar MD Unavailable [phone] Reason for Visit * Reason Comments cerclage * Auth/Cert (Routine) Specialty Diagnoses / Procedures Referred By Contac t Referred To Contact manager supply chain planning Diagnoses Maternity*FERNANDO: 02/10/24*[place]/Di Twins Cervical shortening affecting in second trimester Ur 4cob [address] [place] [address] Referral ID Status Reason Start Date Expiration Date Visits Re quested Visits Authorized [id number] 1 1 Encounter Details Date Type Department Care Team (Latest Contact Info) Description 09/26/2023 4:43 PM CDT - 09/28/2023 12:22 PM CDT Hospital Encounter M [facility] [address] [place] [address] Heidi Swain MD [address] [facility] [address] [place] [address] Cervical shortening affecting in second [...] Swain MD - 09/28/2023 9:30 AM CDT [facility] Discharge Summary Kyara Villegas Age: [age] year old Date of : 2000 Date of Admission: 09/26/2023 Date of Discharge: 09/28/23 Admitting Physician: Heidi Swain MD Discharge Physician: Heidi Swain MD Admission Diagnosis: - [place]/di twin intrauterine at 20w3d - Cervical insufficiency by US and exam Discharge Diagnosis: - [place]/di twin intrauterine at 20w5d - Cervical insufficiency [...] your medicines These medications were sent to [place], [place] - [address] [facility] [address], [facility] [address] acetaminophen 325 MG tablet Brief History of Presentation: Kyara Villegas is a 22 year old at 20w3d who presents for admission prior to planned exam indicated cerclage placement tomorrow (09/26). This is a mono/di twin . Pt was seen by [facility] today and found to have a shortened cervix to 8.2 mm on transvaginal ultrasound.A digital exam was performed and patient was found to be 1 cm dilated. Exam indicated cerclage was recommended and pt transferred to [facility] for further evaluation prior to planned procedure [...] unwell feeling Follow up: Follow up in [facility] clinic scheduled appointment this coming week [...] tablet by mouth daily Reyna Stern MD Crime Scene Examiner Resident, PGY-3 09/28/2023 9:35 AM Physician Attestation [...] puede myron comenzado el trabajo de parto. Placitas significa que bravo tenido al menos 6 [...] encontrar m??s informaci??n en ingl??s? Vaya a https://[email or web address].[email or web address] Wireless.net/patientedes Escriba N531 en la b??squeda para aprender m??s acerca de Aprenda cu??ndo llamar a tian m??dico raúl el embarazo (despu??s de 20 semanas). Revisado: 2022 Versi??n del contenido: 14.0 ?? [employer]. Las instrucciones de cuidado fueron adaptadas [...] Fetus B: FHR 140s Reyna Stern MD Crime Scene Examiner Resident, PGY-3 09/28/2023 11:54 AM * Heidi [...] agreement with the plan. Reyna Stern MD Crime Scene Examiner Resident, PGY-3 09/28/2023 9:14 AM Physician Attestation I saw and evaluated this patient prior to discharge. I discussed the patient with the resident/fellow and agree with plan of care as documented in the note. I personally reviewed vital signs, labs, imaging, and discussed the following plan with the patient, with the assistance of a solid tire finisher via iPad. . I personally spent 15 [...] Fetus 2: 135 bpm via bedside ultrasound [place]: No contractions overnight A/P: 22 year old [...] and Physical September 26, 2023 Kyara Villegas [id number] HPI Kyara Villegas is a 22 year [...] cerclage was recommended and pt transferred to [facility] for further evaluation prior to planned procedure [...] physiologic discharge without blood on collected swabs [place]: quiet x20 min, plan to continue x2h [...] Abnormality Status --------- ------ Adult Type and Screen[[id number]] In process Please view results for these [...] Abnormality Status --------- ------ Extra Serum Separator Tu...[[id number]] In process Extra Green Top (Albee...[[id number]] In process Please view results for these tests on the individual orders. Imaging [facility] US 09/26/2023 Monochorionic diamniotic twin gestation [...] of Dr. Heidi Swain. Raven Sauer MD NURSE TECH PGY-3 09/26/2023 6:38 PM Physician Attestation I [...] instructions reviewed with patient and with ipad maple sugar maker and patient states no questions. She is [...] pain that relieved with heat back Tylenol, [place] was quite. Patient tolerated food. Plan is [...] Attending: Heidi Swain MD Fellow: Socorro Danielson [facility] Fellow PGY5 Resident: Anthony Jones MS3 [...] shortened cervix noted yesterday (09/25) at our [facility] clinic during her first comprehensive anatomy ultrasound measuring 8 mm. Subsequent pelvic examination revealed a visually dilated cervix at 1 cm and digital examination revealing cervix to be 1/50 and soft in consistency. She was recommended to go th [facility] for further evaluation. After counseling regarding these [...] Kyara Villegas Primary Care Provider:Heidi Diane Primary Clinic:[facility] Gestational Age: 20w3d Kyara Tiago Villegas [...] Info) Description 12/19/2023 11:00 AM CDT Appointment [facility] Maternal Medicine [place] [address] [facility] [address] [place] [phone] Tomasa Dickens MD [address] [place], [place] [address] [phone] Nitin [place] MD [address] [place], [place] [phone] 12/19/2023 11:30 AM CDT Office Visit [facility] Medicine [place] [address] [facility] [address] [place] [phone] Tomasa Dickens MD [address] [place], [place] [phone] Nitin [place] MD [address] [place], [place] [phone] 12/26/2023 3:[address] [facility] Medicine [place] [address] [facility] [address] [place] [phone] Tomasa Dick[place] MD [address] [place], [place] [address] [phone] 12/26/2023 3:30 PM CDT Office Visit [facility] Maternal Medicine [place] [address] [facility] [address] [place] [phone] Tomasa Dick[place] MD [address] [place], [place] [phone] 01/02/2024 2:15 PM CDT Appointment [facility] Maternal Medicine [place] [address] [facility] [address] [place] [phone] Tomasa Dickens MD [address] [place] [address] 01/02/2024 2:45 PM CDT Office Visit [facility] Maternal Medicine [place] [address] [facility] [address] [place] [phone] Tomasa Dickens MD [address] [place] [address] 01/09/2024 3:00 PM CDT Appointment [facility] Maternal Medicine [place] [address] [facility] [address] [place] [phone] Tomasa Dickens MD [address] [place] [address] 01/09/2024 3:30 PM CDT Office Visit [facility] Maternal Medicine [place] [address] [facility] [address] [place] [phone] Tomasa Dickens MD [address] [place] [address] 01/16/2024 2:15 PM CREW LEAD Appointment [facility] Maternal Medicine [place] [address] [facility] [address] [place] [phone] Tomasa Dickens MD [address] [place] [address] 01/16/2024 2:45 PM CREW LEAD Office Visit [facility] Maternal Medicine [facility] [place] [address] [place] [address] Tomasa Dickens MD [address] [place] [address] 400 [place] [address] documented as of [...] - MICRO GENERAL ORDERABLES [facility]U IDD LABORATORY [facility] Inf. Diseases Diag. Lab [address] [facility], [address] [place] [phone] * (ABNORMAL) UA with Microscopic (09/26/2023 [...] 09/26/2023 6:37 PM CDT UR LABORATORY Specific [place] Urine 1.018 1.003 - 1.035 09/26/2023 6:37 [...] MD LAB - URINE ORDERABLES UR LABORATORY [facility] Acute Care Lab [address] [facility], [address] [place] [address] * Chlamydia trachomatis PCR (09/26/2023 5:50 PM CDT) Chlamydia trachomatis Negative Negative 09/27/2023 11:37 AM CDT [facility] IDD LABORATORY Comment:A negative result by collections attorney mediated amplification does not preclude the presence of C. trachomatis infection because results are dependent on proper and adequate collection, absence of inhibitors and sufficient rRNA to be detected. Swab VAGINAL STRUCTURE / Unknown Non-blood Collection / Unknown 09/26/2023 5:50 PM CDT 09/26/2023 6:03 PM CDT Socorro Danielson MD LAB - MICRO GENERAL ORDERABLES [facility] IDD LABORATORY [facility] Inf. Diseases Diag. Lab [address] [facility], [address] [place] [address] * Neisseria gonorrhoea PCR (09/26/2023 5:50 PM CDT) Neisseria gonorrhoeae Negative Negative 09/27/2023 11:37 AM CDT [facility] Comment:Negative for N. gono rrhoeae rRNA by collections attorney mediated amplification. A negative result by collections attorney mediated amplification does not preclude the presence of C. trachomatis infection because results are dependent on proper and adequate collection, absence of inhibitors and sufficient rRNA to be detected. Swab VAGINAL STRUCTURE / Unknown Non-blood Collection / Unknown 09/26/2023 5:50 PM CDT 09/26/2023 6:03 PM CDT Socorro Danielson MD LAB - MICRO GENERAL ORDERABLES [facility] IDD LABORATORY [facility] Inf. Diseases Diag. Lab [address] [facility], [address] [place] [address], [facility] * (ABNORMAL) Wet prep (09/26/2023 [...] LAB - MICRO GENERAL ORDERABLES UR LABORATORY [facility] Acute Care Lab [address] [place] [address], [place] [address] [place] [address] * Extra Green Top (Albee Heparin) Tube (09/26/2023 5:15 PM CDT) Hold Specimen JIC 09/26/2023 6:32 PM CDT UR LABORATORY Blood STRUCTURE OF RIGHT UPPER LIMB / Unknown Venipuncture / Unknown 09/26/2023 5:15 PM CDT 09/26/2023 5:25 PM CDT Heidi Swain MD LAB - BLOOD ORDERA BLES UR LABORATORY [facility] Acute Care Lab [address] [place] [address], [place] [address] [place] [address] * Extra Serum Separator Tube (SST) (09/26/2023 5:15 PM CDT) Hold Specimen JIC 09/26/2023 6:32 PM CDT UR LABORATORY Blood STRUCTURE OF RIGHT UPPER LIMB / Unknown Venipuncture / Unknown 09/26/2023 5:15 PM CDT 09/26/2023 5:24 PM CDT Heidi Swain MD LAB - BLOOD ORDERA BLES UR LABORATORY [facility] Acute Care Lab [address] [place] [address], [address] [place] [phone] [place] [address] * Adult Type and Screen (09/26/2023 5:15 PM CDT) Pathologist [facility] ABO/RH(D) A POS 09/26/2023 4:59 PM CDT UR BLOOD BANK Antibody Screen Negative Negative 09/26/2023 4:59 PM CDT UR BLOOD BANK SPECIMEN EXPIRATION DATE [id number] 09/26/2023 4:59 PM CDT UR BLOOD BANK Blood STRUCTURE OF RIGHT UPPER LIMB / Unknown Venipuncture / Unknown 09/26/2023 5:15 PM CDT 09/26/2023 5:20 PM CDT Socorro Danielson MD LAB - BLOOD BANK TEST ORDER UR BLOOD BANK [facility] Blood Components Lab [address] [facility], [address] [phone] * (ABNORMAL) CBC with platelets (09/26/2023 [...] [facility], [address] [place] [address] documented in this encounter Visit Diagnoses Diagnosis [...] 81 mg, Oral, DAILY, First dose on Fri09/27/23 at 1230, DO NOT CRUSH. 1348 ($Given [...] to 3 g., Indications: Perioperative Pharmacoprophylaxis, Antepartum 926 ($Given - Provider: Chapo Rutherford MD) indomethacin [...] Pre-procedure documented in this encounter Care Teams Financial Advisor Relationship Specialty Start Date End Date No Ref-Primary, Physician PCP - General 07/22/23 Mica Aguilar MD [address] [address] Assigned OBGYN Provider 08/31/23 documented as of this encounter
--- OUTSIDE RECORDS SUMMARY | 2023-12-09 13:45 | XMS_ITS | Encounter Summary ---
Author Organization [place] Address [address] [place] [address]. [place] [address] Care Team Providers Care Parking Lot Supervisor Name Role Phone No Ref-Primary, Physician Primary Care Provider Mica Aguilar MD Unavailable [phone] Encounter Details Date Type Department Care Team (Late st Contact Info) Description 09/26/2023 1:30 PM CDT Office Visit [facility] Process Improvement Manager Services [address] [place] [phone] Lamar Griffith Social History Tobacco Use [...] Info) Description 12/19/2023 11:00 AM CDT Appointment [facility] Maternal Medicine [facility] [place] [address] [facility] [address] [place] [address] Tomasa Dickens MD [address] [place] [address] Nitin [place] MD [address] [place] [address] 12/19/2023 11:30 AM CDT Office Visit [facility] Maternal Medicine [place] [address] [place] [phone] Tomasa Dickens MD [address] [place], [place] [address] Nitin [place] MD [address] [place] [address] 12/26/2023 3:00 PM CDT Appointment [facility] Maternal Medicine [place] [address] [place] [phone] Tomasa Dickens MD [address] [place] [phone] 12/26/2023 3:30 PM CDT Office Visit [facility] Maternal Medicine [place] [address] [place] [phone] Tomasa Dickens MD [address] [place] [address] 01/02/2024 2:15 PM CDT Appointment [facility] Maternal Medicine [place] [address] [place] [phone] Tomasa Dickens MD [address] [place], [place] [address] 01/02/2024 2:45 PM CDT Office Visit [facility] Medicine [place] [address] [facility] [address] [place] [phone] Tomasa Dickens MD [address] [place] [address] 01/09/2024 3:00 PM CDT Appointment [facility] Medicine [place] [address] [facility] [address] [place] [phone] Tomasa Dickens MD [address] [place], [place] [address] 01/09/2024 3:30 PM CDT Office Visit [facility] Medicine [place] [address] [facility] [address] [place] [phone] Tomasa Dickens MD [address] [place], [place] [address] 01/16/2024 2:15 PM TWENTY ONE DEALER Appointment [facility] Medicine [place] [address] [facility] [address] [place] [phone] Tomasa Dickens MD [address] [place], [place] [address] 01/16/2024 2:45 PM TWENTY ONE DEALER Office Visit [facility] Maternal Medicine [place] [address] [facility] [address] [place] [phone] Tomasa Dickens MD [address] [place] [address] documented as of this encounter Visit Diagnoses Not on filedocumented in this encounter Care Teams Parking Lot Supervisor Relationship Specialty Start Date End Date No Ref-Primary, Physician PCP - General 07/22/23 Mica Aguilar MD [address] [place] [address] Assigned OBGYN Provider 08/31/23 documented as of this encounter
--- OUTSIDE RECORDS SUMMARY | 2023-12-09 13:45 | XMS_ITS | Encounter Summary ---
Author Organization [place] Address [address] [place] [address]. [place] [address] Care Team Providers Care Pc Maintenance Technician Name Role Phone No Ref-Primary, Physician Primary Care Provider Mica Aguilar MD Unavailable [phone] Reason for Visit * Auth/Cert (Routine) Specialty Diagnoses / Procedures Referred By Contac t Referred To Contact business systems technician Diagnoses Maternity*FERNANDO: 02/10/24*[place]/Di Twins Cervical shortening affecting in second trimester Ur 4cob [address] [place] [address] Referral ID Status Reason Start Date Expiration Date Visits Re quested Visits Authorized [id number] 1 1 Encounter Details Date Type Department Care Team (Late st Contact Info) Description 09/27/2023 9:12 AM CDT Anesthesia Event [facility] [address] [place] [address] Agustina Dinh MD [address] [facility] [address] [place] [address] Chapo Rutherford MD [address] [place] [address] Anesthesia Record Procedure Summary Procedure [...] Medication Administration Time: 09/27/2023 9:20 AM FOR [facility] ([facility]) ONLY: Pain Team Contact information: please page the Pain Team Via A-STAR.Search Pain. During daytime hours, please page the [...] and realistic alternatives discussed. Questions answered and patient/school admissions representative(s) expressed understanding. 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 PONV [...] Info) Description 12/19/2023 11:00 AM CDT Appointment [facility] Maternal Medicine [place] [address] [place] [phone] Tomasa Dickens MD [address] [place], [place] [address] Nitin [place] MD [address] [place], [place] [address] 12/19/2023 11:30 AM CDT Office Visit [facility] Medicine [place] [address] [place] [phone] Tomasa Dickens MD [address] [place], [place] [address] Nitin [place] MD [address] [place], [place] [address] 12/26/2023 3:00 PM CDT Appointment [facility] Medicine [place] [address] [place] [phone] Tomasa Dickens MD [address] [place] [address] 12/26/2023 3:30 PM CDT Office Visit [facility] Maternal Medicine Center [place] [address] [place] [phone] Tomasa Dickens MD [address] [place] [address] 01/02/2024 2:15 PM CDT Appointment [facility] Maternal Medicine [place] [address] [place] [phone] Tomasa Dickens MD [address] [place] [address] 01/02/2024 2:45 PM CDT Office Visit [facility] Maternal Medicine [place] [address] [place] [phone] Tomasa Dickens MD [address] [place] [address] 01/09/2024 3:00 PM CDT Appointment [facility] Maternal Medicine [place] [address] [place] [phone] Tomasa Dickens MD [address] [place] [address] 01/09/2024 3:30 PM CDT Office Visit [facility] Maternal Medicine [place] [address] [place] [phone] Tomasa Dickens MD [address] [place] [address] 01/16/2024 2:15 PM PLUG WIRER Appointment [facility] Maternal Medicine [place] [address] [place] [phone] Tomasa Dickens MD [address] [place], [place] [address] 01/16/2024 2:45 PM PLUG WIRER Office Visit [facility] Maternal Medicine [facility] [address] [place] [phone] Tomasa Dickens MD [address] [place], [place] [address] documented as of this encounter Procedures Procedure [...] Medication Administration Time: 09/27/2023 9:20 AM FOR [facility] ([facility] ONLY: ?? Pain Team Contact information: please page the Pain Team Via A-STAR. Search Pain. During daytime hours, please page the attending first. At night please page the resident first. Agustina Dinh MD CT ANESTHESIA documented in this encounter Visit Diagnoses [...] mcg documented in this encounter Care Teams Pc Maintenance Technician Relationship Specialty Start Date End Date No Ref-Primary, Physician PCP - General 07/22/23 Mica Aguilar MD [address] [address] Assigned OBGYN Provider 08/31/23 documented as of this encounter
--- OUTSIDE RECORDS SUMMARY | 2023-12-09 13:45 | XMS_ITS | Encounter Summary ---
Author Organization [place] Address [address] [facility] [place] [address] Care Team Providers Care Boots And Shoes Supervisor Name Role Phone No Ref-Primary, Physician Primary Care Provider Mica Aguilar MD Unavailable [phone] Reason for Referral * Diagnostic Imaging Ultrasound (Routine) - Pending Review Specialty Diagnoses / Procedures Referred By Contac t Referred To Contact Radiology. 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 Procedures MFM Twins US Comprehensive F/U Case Berrios MD [address] [place] [address] Referral ID Status Reason Start Date Expiration Date V isits Requested Visits Authorized [id number] Pending Review 09/30/2023 09/29/2024 1 1 Reason for Visit * Reason Comments Ultrasound RL2/UAR/MCA-TTTS marivel ck-mono/di twins Encounter Details Date Type Department Care Team (Latest Contact Info) Description 09/30/2023 9:15 AM CDT Office Visit [facility] [place] [address] [facility] [address] [place] [phone] Mica Aguilar MD [address] [place], [place] [address] Case Berrios MD [address] [place] [address] Monochorionic diamniotic twin gestation in [...] for details of today's US at the [facility]. Case Berrios MD Maternal- Medicine documented in this encounter Nursing Notes * Eboni Spencer RN - 09/30/2023 9:15 AM CDT postal service window clerk used for [facility] visit via IPAD ID#[id number] documented in this encounter Plan of Treatment Upcoming Encounters Date Type Department Care Team (Late st Contact Info) Description 12/19/2023 11:00 AM CDT Appointment [facility] [place] [address] [facility] [address] [place] [address] Raya Dickens MD [address] [place] [address] Nitin Morris MD [address] [place] [address] 12/19/2023 11:30 AM CDT Office Visit [facility] [place] [address] [place] [phone] Ryaa Dickens MD [address] [place] [address] Nitin Morris MD [address] [place] [address] 12/26/2023 3:00 PM CDT Appointment [facility] Maternal Medicine [place] [address] [place] [phone] Raya Dickens MD [address] [place] [address] 12/26/2023 3:30 PM CDT Office Visit [facility] [place] [address] [place] [phone] Raya Dickens MD [address] [place] [address] 01/02/2024 2:15 PM CDT Appointment [facility] [place] [address] [place] [phone] Raya Dickens MD [address] [place] [address] 01/02/2024 2:45 PM CDT Office Visit [facility] [place] [address] [place] [phone] Raya Dickens MD [address] [place] [address] 01/09/2024 3:00 PM CDT Appointment [facility] [place] [address] [place] [address] Raya Dickens MD [address] [place] [address] 01/09/2024 3:30 PM CDT Office Visit [facility] M[facility] Medicine [place] [address] [facility] [address] [place] [phone] Raya Dickens MD [address] [place], [place] [address] 01/16/2024 2:15 PM PARACHUTE SUPERVISOR Appointment [facility] M[facility] Medicine [place] [address] [facility] [address] [place] [phone] Raya Dickens MD [address] [place] [address] 01/16/2024 2:45 PM PARACHUTE SUPERVISOR Office Visit [facility] Medicine [place] [address] [facility] [address] [place] [phone] Raya Dickens MD [address] [place], [place] [address] documented as of this encounter Results * [...] ? Study Date: ??10/24/2023 2:10pm Pat. NO: ??[id number] ?Referring ??: RAYA SHAH Site: ? Cutting Machine Tender Helper: Sindhu Maurer RDMS : ??2000 ?Age: ?? [...] ?1 lb 5 ?oz EFW by ?Hadlock (LED-SE-KI-FL) EFW discordance ?10.4 ?% Head / Face / Neck Biometry: Entrance Guard ?6.1 ? mm CM ? 6.2 ? [...] ?1 lb 8 ?oz EFW by ?Hadlock (TAM-MW-JL-FL) EFW discordance ?10.4 ?% Head / Face / Neck Biometry: Entrance Guard ?8.4 ? mm CM ? 6.3 ? mm Fetus 1: ANATOMY ----- The following structures appear normal: Head / Neck ? Cranium. Head size. Head shape. Lateral ventricles. Midline falx. Cavum septi pellucidi. Cerebellum. Cisterna magna. Thalami. Face ? Lips. Profile. Nose. Heart / Thorax ?4-chamber view. RVOT view. LVOT view. 7-odqvmf-myqyiqt view. ? Diaphragm. Abdomen ? Stomach. Kidneys. [...] ? Lips. Profile. Nose. Heart / Thorax ?1-eojhoo-iemvdsi view. sex: female. Fetus 1: DOPPLER ----- [...] MISHRA Study Date: 10/24/2023 2:10pm Pat. NO: [id number] Referring MD: RAYA SHAH Site: Cutting Machine Tender Helper: Sindhu Maurer RDMS : 2000 Age: 23 [...] EFW (lb,oz) 1 lb 5oz EFW by Hadlock(XTZ-VW-LJ-FL) EFW discordance 10.4% Head / Face / Neck Biometry: Entrance Guard 6.1mm CM 6.2mm Fetus 2: BIOMETRY ----- BPD 55.7mm 23w 0dHadlock OFD 78.1mm 23w 5dNicolaides HC 215.2mm 23w 4dHadlock Cerebellum tr 27.6mm 24w 6dNicolaides AC 200.6mm 24w 5d 50%Hadlock Femur 42.9mm 24w 0dHadlock Weight Calculation: EFW 677g 33%Hadlock EFW (lb,oz) 1 lb 8oz EFW by Hadlock(MJI-JW-CE-FL) EFW discordance 10.4% Head / Face / Neck Biometry: Entrance Guard 8.4mm CM 6.3mm Fetus 1: ANATOMY ----- The following structures appear normal: Head / Neck Cranium. Head size. Head shape.Lateral ventricles. Midline falx. Cavum septi pellucidi. Cerebellum.Cisterna magna. Thalami. Face Lips. Profile. Nose. Heart / Thorax 4-chamber view. RVOT view. LVOT view.4-doahcq-bicjrkz view. Diaphragm. Abdomen Stomach. Kidneys. Bladder. The [...] Face Lips. Profile. Nose. Heart / Thorax 7-moaitq-uxmnitj view. sex: female. Fetus 1: DOPPLER ----- [...] twin anemia polycythemia syndrome. 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
--- OUTSIDE RECORDS SUMMARY | 2023-12-09 13:45 | XMS_ITS | Encounter Summary ---
Author Organization [place] Address [address] [facility] [place] [address] Care Team Providers Care Steam Powerplant Supervisor Name Role Phone No Ref-Primary, Physician Primary Care Provider Mica Aguilar MD Unavailable [phone] Encounter Details Date Type Department Care [...] Info) Description 12/19/2023 11:00 AM CDT Appointment [facility] [place] [address] [facility] [address] [place] [address] Tomasa Dickens MD [address] [place], [place] [address] Nitin Morris MD [address] [place] [address] 12/19/2023 11:30 AM CDT Office Visit [facility] [place] [address] [place] [phone] Tomasa Dickens MD [address] [place] [address] Nitin Morris MD [address] [place] [address] 12/26/2023 3:00 PM CDT Appointment [facility] Maternal Medicine [place] [address] [place] [phone] Tomasa Dickens MD [address] [place] [address] 12/26/2023 3:30 PM CDT Office Visit [facility] Maternal Medicine [place] [address] [place] [phone] Tomasa Dickens MD [address] [place] [address] 01/02/2024 2:15 PM CDT Appointment [facility] Maternal Medicine [place] [address] [place] [phone] Tomasa Dickens MD [address] [place] [address] 01/02/2024 2:45 PM CDT Office Visit [facility] Maternal Medicine [place] [address] [place] [phone] Tomasa Dickens MD [address] [place] [address] 01/09/2024 3:00 PM CDT Appointment [facility] Medicine [place] [address] [facility] [address] [place] [phone] Tomasa Dickens MD [address] [place] [address] 01/09/2024 3:30 PM CDT Office Visit [facility] [place] [address] [facility] [address] [place] [phone] Tomasa Dickens MD [address] [place], [place] [address] 01/16/2024 2:15 PM TRANSPORTATION SECURITY OFFICER Appointment [facility] Medicine [place] [address] [facility] [address] [place] [phone] Tomasa Dickens MD [address] [place] [address] 01/16/2024 2:45 PM TRANSPORTATION SECURITY OFFICER Office Visit [facility] Medicine [place] [address] [facility] [address] [place] [phone] Tomasa Dickens MD [address] [place], [place] [address] documented as of this encounter Visit Diagnoses Not on filedocumented in this encounter Care Teams Steam Powerplant Supervisor Relationship Specialty Start Date End Date No Ref-Primary, Physician PCP - General 07/22/23 Mica Aguilar MD [address] [address] [place] [address] Assigned OBGYN Provider 08/31/23 documented as of this encounter
--- OUTSIDE RECORDS SUMMARY | 2023-12-09 13:45 | XMS_ITS | Encounter Summary ---
Author Organization [place] Address [facility] [place] [address] Care Team Providers Care Community Health Nurse Staff Name Role Phone No Ref-Primary, Physician Primary Care Provider Mica Aguilar MD Unavailable [phone] Reason for Referral * Diagnostic Imaging Ultrasound (Routine) - Pending Review Specialty Diagnoses / Procedures Referred By Contac t Referred To Contact Radiology. 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 Procedures MFM Twins US Comprehensive F/U Mica Aguilar MD [address] [place] [address] Referral ID Status Reason Start Date Expiration Date V isits Requested Visits Authorized [id number] Pending Review 08/08/2023 08/07/2024 1 1 Encounter Details Date Type Department Care Team (Latest Contact Info) Description 09/30/2023 8:45 AM CDT - 09/30/2023 11:59 PM CDT Hospital En[facility] [address] [facility] [address] [place] [phone] Mica Aguilar MD [address] [place] [address] Case Berrios MD [address] [place] [address] Monochorionic diamniotic twin gestation in [...] Info) Description 12/19/2023 11:00 AM CDT Appointment [facility] [address] [facility] [address] [place] [phone] Raya Dickens MD [address] [place] [address] Nitin Morris MD [address] [place] [address] 12/19/2023 11:30 AM CDT Office Visit [facility] Maternal Medicine Center [place] [address] [place] [phone] Raya Dickens MD [address] [place] [address] Nitin oMrris MD [address] [place] [address] 12/26/2023 3:00 PM CDT Appointment [facility] Maternal Medicine [place] [address] [place] [phone] Raya Dickens MD [address] [place] [address] 12/26/2023 3:30 PM CDT Office Visit [facility] Maternal Medicine [place] [address] [place] [phone] Raya Dickens MD [address] [place] [address] 01/02/2024 2:15 PM CDT Appointment [facility] Maternal Medicine [place] [address] [place] [phone] Raya Dickens MD [address] [place], [place] [address] 01/02/2024 2:45 PM CDT Office Visit [facility] Maternal Medicine Center [place] [address] [facility] [address] [place] [phone] Raya Dickens MD [address] [place] [address] 01/09/2024 3:00 PM CDT Appointment [facility] Maternal Medicine [place] [address] [facility] [address] [place] [phone] Raya Dickens MD [address] [place], [place] [address] 01/09/2024 3:30 PM CDT Office Visit [facility] Maternal Medicine [place] [address] [facility] [address] [place] [phone] Raya Dickens MD [address] [place], [place] [address] 01/16/2024 2:15 PM FIRE CONTROLMAN Appointment [facility] Maternal Medicine [place] [address] [facility] [address] [place] [phone] Raya Dickens MD [address] [place] [address] 01/16/2024 2:45 PM FIRE CONTROLMAN Office Visit [facility] Maternal Medicine [place] [address] [facility] [address] [place] [phone] Raya Dickens MD [address] [place] [address] documented as of this encounter Procedures Procedure [...] ? Study Date: ??09/30/2023 9:11am Pat. NO: ??[id number] ?Referring ??: RAYA SHAH Site: ? Sharepoint Designer Developer: Christopher Street RDMS : ??2000 ?Age: ?? [...] MISHRA Study Date: 09/30/2023 9:11am Pat. NO: [id number] Referring MD: RAYA SHAH Site: Sharepoint Designer Developer: Christopher Street RDMS : 2000 Age: 22 [...] twin anemia polycythemia syndrome. 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
--- OUTSIDE RECORDS SUMMARY | 2023-12-09 13:45 | XMS_ITS | Encounter Summary ---
Author Organization [place] Address [address] [place] [address]. [place] [address] Care Team Providers Care Manufacturing Executive Name Role Phone No Ref-Primary, Physician Primary Care Provider Miac Aguilar MD Unavailable [phone] Reason for Referral * Diagnostic Imaging Ultrasound (Routine) - Pending Review Specialty Diagnoses / Procedures Referred By Contac t Referred To Contact Radiology. 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 Medicine [facility] [address] [place] [phone] Mica Aguilar MD [address] [place] [address] Angelica Wright MD [address] [place] [address] Monochorionic diamniotic twin gestation in [...] Info) Description 12/19/2023 11:00 AM CDT Appointment [facility] Maternal Medicine [facility] [address] [place] [phone] Raya Dickens MD [address] [place] [address] Nitin Morris MD [address] [place] [address] 12/19/2023 11:30 AM CDT Office Visit [facility] M[facility] Medicine Center [place] [address] [place] [phone] Raya Dickens MD [address] [place] [address] Nitin Morris MD [address] [place] [address] 12/26/2023 3:00 PM CDT Appointment [facility] Maternal Medicine [place] [address] [place] [phone] Raya Dickens MD [address] [place] [address] 12/26/2023 3:30 PM CDT Office Visit [facility] Maternal Medicine [place] [address] [place] [phone] Raya Dickens MD [address] [place], [place] [address] 01/02/2024 2:15 PM CDT Appointment [facility] Maternal Medicine [place] [address] [place] [phone] Raya Dickens MD [address] [place] [address] 01/02/2024 2:45 PM CDT Office Visit [facility] Maternal Medicine [place] [address] [place] [phone] Raya Dickens MD [address] [place] [address] 01/09/2024 3:00 PM CDT Appointment [facility] Maternal Medicine [place] [address] [facility] [address] [place] [address] Raya Dickens MD [address] [place] [address] 01/09/2024 3:30 PM CDT Office Visit [facility] Medicine [place] [address] [place] [phone] Raya Dickens MD [address] [place] [address] 01/16/2024 2:15 PM FINANCIAL ASSISTANCE SPECIALIST Appointment [facility] Maternal Medicine [place] [address] [place] [phone] Raya Dickens MD [address] [place] [address] 01/16/2024 2:45 PM FINANCIAL ASSISTANCE SPECIALIST Office Visit [facility] Maternal Medicine [place] [address] [facility] [address] [place] [phone] Raya Dickens MD [address] [place], [place] [address] documented as of this encounter Procedures Procedure [...] ? Study Date: ??09/26/2023 1:31pm Pat. NO: ??[id number] ?Referring ??MD: RAYA SHAH Site: ? Devulcanizer Operator: Christopher Street RDMS : ??2000 ?Age: [...] lb 11 ? oz EFW by ?Hadlock (QUH-NM-AA-FL) EFW discordance ?13.8 ?% Head / Face / Neck Biometry: Central Supply Worker ?5.3 ? mm CM ? 2.4 ? [...] lb 13 ? oz EFW by ?Hadlock (AAS-XP-KM-FL) EFW discordance ?13.8 ?% Head / Face / Neck Biometry: Central Supply Worker ?6.9 ? mm CM ? 4.3 ? [...] view. RVOT view. LVOT view. 3-vessel view. 3-gnohff-latlvit view. Situs. Aortic arch view. Bicaval view. [...] view. RVOT view. LVOT view. 3-vessel view. 9-yruyem-snsbwwx view. Situs. Aortic arch view. Bicaval view. [...] the patient (reviewing medical records/tests), in direct riay-bb-wfwf contact with the patient during her visit with the majority spent counseling and discussing the plan of care and documenting the visit in the electronic medical record. Please see note for details. Procedure Note Angelica Wright MD - 10/08/2023 Comprehensive ----- Pat. Name: KRISTYN MISHRA Study Date: 09/26/2023 1:31pm Pat. NO: [id number] Referring MD: RAYA SHAH Site: Devulcanizer Operator: Christopher Street RDMS : 2000 Age: [...] EFW (lb,oz) 0 lb 11oz EFW by Hadlock(NJP-CR-OD-FL) EFW discordance 13.8% Head / Face / Neck Biometry: Central Supply Worker 5.3mm CM 2.4mm Nasal bone 5.9mm Fetus 2: BIOMETRY ----- BPD 46.2mm 20w 0dHadlock OFD 62.0mm 20w 0dNicolaides HC 172.9mm 19w 6dHadlock Cerebellum tr 19.7mm 18w 6dNicolaides Nuchal fold 4.4mm AC 155.0mm 20w 5d 52%Hadlock Femur 34.9mm 21w 0dHadlock Humerus 30.9mm 20w 2dJeanty Weight Calculation: EFW 371g 59%Hadlock EFW (lb,oz) 0 lb 13oz EFW by Hadlock(DCU-WQ-FP-FL) EFW discordance 13.8% Head / Face / Neck Biometry: Central Supply Worker 6.9mm CM 4.3mm Nasal bone 5.8mm Fetus 1: ANATOMY ----- The following structures appear normal: Head / Neck Cranium. Head size. Head shape.Lateral ventricles. Choroid plexus. Midline falx. Cavum septi pellucidi.Cerebellum. Cisterna magna. Parenchyma. Thalami. Vermis. Neck. Nuchal fold. Face Lips. Profile. Nose. Maxilla.Mandible. Orbits. Lens. Heart / Thorax 4-chamber view. RVOT view. LVOT view.3-vessel view. 3-acanrj-dupagtj view. Situs. Aortic arch view. Bicavalview. Ductal [...] 4-chamber view. RVOT view. LVOT view.3-vessel view. 6-sshpez-epqjgmb view. Situs. Aortic arch view. Bicavalview. Ductal [...] see the patient (reviewing medical records/tests), in seaapyovol-uh-aquq contact with the patient during her visit [...] length of 8 mm. 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
--- OUTSIDE RECORDS SUMMARY | 2023-12-09 13:45 | XMS_ITS | Encounter Summary ---
Author Organization [place] Address Formerly [facility] [place] [address] Care Team Providers Care Brush Cleaner Name Role Phone No Ref-Primary, Physician Primary Care Provider Mica Aguilar MD Unavailable [phone] Reason for Visit * Reason Comments Ultrasound L2-[place]/Di twins Encounter Details Date Type Department Care Team (Latest Contact Info) Description 09/26/2023 2:45 PM CDT Office Visit [facility] Maternal Medicine Center [place] [address] [place] [address] Mica Aguilar MD [address] [facility] [address] [place] [address] Angelica Wright MD [address] [place] [address] [place] [address] Monochorionic diamniotic twin gestation in [...] 09/26/2023 2:45 PM CDT Patient presents to [facility] for L2 at 20w3d due to M/D twins. Positive movement x2. Denies LOF, vaginal bleeding or cramping/contractions. SBAR given to [facility] MD, see their note in Epic. documented in this encounter Plan of Treatment Upcoming Encounters Date Type Department Care Team (Late st Contact Info) Description 12/19/2023 11:00 AM CDT Appointment [facility] Maternal Medicine [place] [address] [place] [address] [phone] Tomasa Dickens MD [address] [place] [address] [place], [place] [address]484 Nitin Morris MD [address] [place] [address] [place] [address] 12/19/2023 11:30 AM CDT Office Visit [facility] Medicine [place] [address] [facility] [address] [place] [address] [phone] Tomasa Dickens MD [address] [place] [address] [place], [place] [address] Nitin Morris MD [address] [place] [address] [place], [place] [address] 12/26/2023 3:00 PM CDT Appointment [facility] Maternal Medicine Center [place] [address] [place] [phone] Tomasa Dickens MD [address] [place] [address] [place] [address] 12/26/2023 3:30 PM CDT Office Visit [facility] Maternal Medicine [place] [address] [place] [phone] Tomasa Dickens MD [address] [place] [address] [place], [place] [address] 01/02/2024 2:15 PM CDT Appointment [facility] Maternal Medicine [place] [address] [place] [phone] Tomasa Dickens MD [address] [place] [address] [place], [place] [address] 01/02/2024 2:45 PM CDT Office Visit [facility] Maternal Medicine [place] [address] [place] [address] [phone] Tomasa Dickens MD [address] [place] [address] [place], [place] [address] 01/09/2024 3:00 PM CDT Appointment [facility] Maternal Medicine Center [place] [address] [place] [phone] Tomasa Dickens MD [address] [place] [address] [place] [address] 01/09/2024 3:30 PM CDT Office Visit [facility] [place] [address] [place] [address] Tomasa Dickens MD [address] [place] [address] [place] [address] 01/16/2024 2:15 PM LONG TERM CARE PHARMACIST Appointment [facility] [place] [address] [place] [address] [phone] Tomasa Dickens MD [address] [place] [address] [place] [address] 01/16/2024 2:45 PM LONG TERM CARE PHARMACIST Office Visit [place] [address] [place] [phone] Tomasa Dickens MD [address] [place] [address] [place], [place] [address]224 documented as of this encounter Visit Diagnoses Diagnosis 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- Primary Cervical insufficiency during in second trimester, antepartum documented in this encounter Care Teams Brush Cleaner Relationship Specialty Start Date End Date No Ref-Primary, Physician PCP - General 07/22/23 Mica Aguilar MD [address] [address] [place], [place] [address] Assigned OBGYN Provider 08/31/23 documented as of this encounter
== END 2023-12-09 13:38 | disposition home or self-care (01) ==
LOC: NFLDREF 13:38
PROVIDERS: Visit Provider Obstetrics & Gynecology
DX: Z34.93 Encounter for supervision of normal pregnancy, unspecified, third trimester (principal); Z3A.31 31 weeks gestation of pregnancy
CPT/HCPCS: 87086

== ENCOUNTER 2023-12-17 15:17 | Outpatient (CLI) | payer BC, SELFPAY ==
[2023-12-17] VITALS (9 sets, daily range): BP systolic 100–109; BP diastolic 62–65; PULSE 104–122; RESP 18–20; TEMP 36.9–37; O2SAT 99–100
--- OUTSIDE RECORDS SUMMARY | 2023-12-17 15:48 | XMS_ITS | Encounter Summary ---
Author Organization [place] Address [facility] [place] [address] Care Team Providers Care Utility Bill Complaints Investigator Name Role Phone No Ref-Primary, Physician Primary Care Provider Mica Aguilar MD Unavailable [phone] Reason for Referral * Diagnostic Imaging Ultrasound (Routine) - Pending Review Specialty Diagnoses / Procedures Referred By Contac t Referred To Contact Radiology. 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 Procedures MFM Twins Comprehensive F/U Raya Dickens MD [address] [address] Referral ID Status Reason Start Date Expiration Date V isits Requested Visits Authorized [id number] Pending Review 10/24/2023 10/23/2024 1 1 Reason for Visit * Diagnostic Imaging Ultrasound (Routine) - Pending Review Specialty Diagnoses / Procedures Referred By Contac t Referred To Contact Radiology. 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 Procedures MFM Twins Comprehensive F/U Raya Dickens MD [address] [address] [place] [address] Referral ID Status Reason Start Date Expiration Date V isits Requested Visits Authorized [id number] Pending Review 10/24/2023 10/23/2024 1 1 Encounter Details Date Type Department Care Team (Latest Contact Info) Description 12/05/2023 1:58 PM CDT - 12/05/2023 11:59 PM CDT Hospital Encounter [facility] Maternal Medicine [facility] [address] [facility] [address] [facility] [place] [phone] Didi Daniel MD [address] [facility] [address] [place], [place] [address] 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 [...] AM CDT Appointment [facility] Maternal Medicine [facility] [address] [facility] [address] [place] [address] Nitin Morris MD [address] [facility] [address] [place], [place] [address] 12/19/2023 11:00 AM CDT Office Visit [facility] Credit And Collection Manager Services [address] [place] [phone] 12/19/2023 11:30 AM CDT Office Visit [facility] Maternal Medicine [place] [address] [facility] [address] [place] [phone] Nitin Morris MD [address] [place] [address] [place] [address] 01/02/2024 2:[address] [facility] Maternal Medicine [place] [address] [facility] [address] [place] [phone] Raya Dickens MD [address] [place] [address] [place] [address] 01/02/2024 2:45 PM CDT Office Visit [facility] Maternal Medicine [place] [address] [facility] [address] [place] [phone] Raya Dicknes MD [address] [place] [address] [place] [address] 01/16/2024 2:15 PM SALES VENDOR Appointment [facility] Maternal Medicine [place] [address] [facility] [address] [place] [phone] Raya Dickens MD [address] [place] [address] [place] [address] 01/16/2024 2:45 PM SALES VENDOR Office Visit [facility] Maternal Medicine [place] [address] [facility] [address] [place] [phone] Raya Dickens MD [address] [place] [address] [place], [place] [address] documented as of this encounter Procedures Procedure [...] ? Study Date: ??12/05/2023 2:09pm Pat. NO: ??[id number] ?Referring ??MD: RAYA SHAH Site: ? Roughing Mill Operator: Linda Lock [facility] : ??2000 ?Age: ?? 23 ----- INDICATION [...] record, and communicating with other health healthcare analyst and/or care coordination. Procedure Note Didi Daniel MD - 12/05/2023 Surveillance ----- Pat. Name: KRISTYN MISHRA Study Date: 12/05/2023 2:09pm Pat. NO: [id number] Referring MD: RAYA SHAH Site: Roughing Mill Operator: Linda Lock RDMS DOB: 2000 Age: 23 ----- INDICATION ----- Monochorionic, [...] today's evaluation or if [facility], please contact the M[facility]- [facility] Center. anomalies may be present but not detected I spent a total of 10 minutes on the date of this encounter includingpreparing to see the patient (reviewing medical records/tests), counselingand discussing the plan of care, documenting the visit in the electronic medical record, andcommunicating with other health healthcare analyst and/or carecoordination. IMPRESSION ----- Monochorionic diamniotic twin [...] twin anemia polycythemia syndrome. Raya Dickens MD [facility] US ORDERAB LES documented in this encounter Visit Diagnoses Diagnosis 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 documented in this encounter Care Teams Utility Bill Complaints Investigator Relationship Specialty Start Date End Date No Ref-Primary, Physician PCP - General 07/22/23 Mica Aguilar MD [address] [address] Assigned OBGYN Provider 08/31/23 documented as of this encounter
--- OUTSIDE RECORDS SUMMARY | 2023-12-17 15:48 | XMS_ITS | Encounter Summary ---
Author Organization [place] Address [address] [facility] [place] [address] Care Team Providers Care Bingo Clerk Name Role Phone No Ref-Primary, Physician Primary Care Provider Mica Aguilar MD Unavailable [phone] Encounter Details Date Type Department Care [...] Info) Description 12/19/2023 11:00 AM CDT Appointment [facility] Maternal Medicine Center [place] [address] [place] [address] Nitin Morris MD [address] [place] [address] [place] [address] 12/19/2023 11:00 AM CDT Office Visit [facility] Antiquer Services [facility] [place] [address] 12/19/2023 11:30 AM CDT Office Visit [facility] Maternal Medicine [place] [address] [facility] [address] [place] [phone] Nitin Morris MD [address] [place] [address] [place] [address] 01/02/2024 2:15 PM CDT Appointment [facility] Maternal Medicine [place] [address] [facility] [address] [place] [phone] Tomasa Dickens MD [address] [place] [address] [place] [address] 01/02/2024 2:45 PM CDT Office Visit [facility] Maternal Medicine [place] [address] [facility] [address] [place] [phone] Tomasa Dickens MD [address] [place] [address] [place], [place] [address] 01/16/2024 2:15 PM MEDICAL SAFETY DIRECTOR Appointment [facility] Maternal Medicine [place] [address] [facility] [address] [place] [phone] Tomasa Dickens MD [address] [place] [address] [place] [address] 01/16/2024 2:45 PM MEDICAL SAFETY DIRECTOR Office Visit [facility] Maternal Medicine [place] [address] [facility] [address] [place] [phone] Tomasa Dickens MD [address] [place] [address] [place], [place] [address] documented as of this encounter Visit Diagnoses Not on filedocumented in this encounter Care Teams Bingo Clerk Relationship Specialty Start Date End Date No Ref-Primary, Physician PCP - General 07/22/23 Mica Aguilar MD [address] [place] [address] [place] [address] Assigned OBGYN Provider 08/31/23 documented as of this encounter
--- OUTSIDE RECORDS SUMMARY | 2023-12-17 15:48 | XMS_ITS | Encounter Summary ---
Author Organization [place] Address [facility] [place]0 [facility] 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 For a detailed [...] [facility] for TTTS check. [place]ican interpter used for visit today via IPAD elastic assembler ID#[id number]. Patient reports good movement, denies contractions, leaking of fluid, or bleeding. SBAR given to [facility] , see their note in Epic. documented in this encounter Plan of Treatment Upcoming Encounters Date Type Department Care Team (Late st Contact Info) Description 12/19/2023 11:00 AM CDT Appointment [facility] Medicine [facility] [address] [place] [phone] Nitin Morris MD [address] [facility] [address] [place], [place] [address] 12/19/2023 11:00 AM CDT Office Visit [facility] Playback Operator Services [address] [place] [phone] 12/19/2023 11:30 AM CDT Office Visit [facility] Medicine [facility] [address] [place] [phone] Nitin Morris MD [address] [facility] [address] [place], [place] [address] 01/02/2024 2:15 PM CDT Appointment [facility] [place] [address] [facility] [address] [place] [phone] Tomasa Dickens MD [address] [address] [place], [place] [address] 01/02/2024 2:45 PM CDT Office Visit [facility] Medicine [place] [address] [facility] [address] [place] [phone] Tomasa Dickens MD [address] [address] [place], [place] [address] 01/16/2024 2:15 PM VENEER TRIMMER Appointment [facility] Medicine [place] [address] [facility] [address] [place] [phone] Tomasa Dickens MD [address] [place] [address] [place], [place] [address] 01/16/2024 2:45 PM VENEER TRIMMER Office Visit [facility] Medicine [place] [address] [facility] [address] [place] [phone] Tomasa Dickens MD [address] [place] [address] [place], [place] [address] documented as of this encounter Visit Diagnoses Diagnosis 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
--- OUTSIDE RECORDS SUMMARY | 2023-12-17 15:48 | XMS_ITS | Encounter Summary ---
Author Organization [place] Address [facility] [place] [address] Care Team Providers Care Software Lead Name Role Phone No Ref-Primary, Physician Primary Care Provider Mica Aguilar MD Unavailable [phone] Reason for Referral * Diagnostic Imaging Ultrasound (Routine) - Pending Review Specialty Diagnoses / Procedures Referred By Contac t Referred To Contact Radiology. 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 Procedures MFM Twins Comprehensive F/U Raya Dickens MD [address] [address] Referral ID Status Reason Start Date Expiration Date V isits Requested Visits Authorized [id number] Pending Review 10/24/2023 10/23/2024 1 1 Reason for Visit * Diagnostic Imaging Ultrasound (Routine) - Pending Review Specialty Diagnoses / Procedures Referred By Contac t Referred To Contact Radiology. 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 Procedures MFM Twins Comprehensive F/U Raya Dickens MD [address] [address] [place] [address] Referral ID Status Reason Start Date Expiration Date V isits Requested Visits Authorized [id number] Pending Review 10/24/2023 10/23/2024 1 1 Encounter Details Date Type Department Care Team (Latest Contact Info) Description 11/21/2023 9:59 AM CDT - 11/21/2023 11:59 PM CDT Hospital Encounter [facility] Medicine [facility] [address] [facility] [address] [place] [phone] Raya Dickens MD [address] [place] [address] Nitin Morris MD [address] [place] [address] Monochorionic diamniotic twin gestation in [...] 12/19/2023 11:00 AM CDT Appointment [facility] Medicine [facility] [address] [facility] [address] [place] [phone] Nitin Morris MD [address] [place] [address] 12/19/2023 11:00 AM CDT Office Visit [facility] Director International Services [address] [place] [address] 12/19/2023 11:30 AM CDT Office Visit [facility] Maternal Medicine [place] [address] [place] [phone] Nitin Morris MD [address] [place] [address] 01/02/2024 2:15 PM CDT Appointment [facility] Maternal Medicine [place] [address] [place] [phone] Raya Dickens MD [address] [place] [address] 01/02/2024 2:45 PM CDT Office Visit [facility] Maternal Medicine [place] [address] [place] [phone] Raya Dickens MD [address] [place] [address] 01/16/2024 2:15 PM SOFTWARE INSTALLER Appointment [facility] Maternal Medicine [place] [address] [place] [phone] Raya Dickens MD [address] [place] [address] [place] [address] 01/16/2024 2:45 PM SOFTWARE INSTALLER Office Visit [facility] Maternal Medicine [place] [address] [place] [phone] Raya Dickens MD [address] [place] [address] [place] [address] documented as of this encounter [...] Name: ROLANDO VILLEGAS KRISTYN ? Study Date: ??11/21/2023 9:59am Pat. NO: ??[id number] ?Referring ??MD: RAYA SHAH Site: ? Metal Mockup Maker: Christopher Street RDMS : ??2000 ?Age: ?? [...] ?2 lb 6 ?oz EFW by ?Hadlock (GHX-GQ-WT-FL) EFW discordance ?9.2 ? % Head / Face / Neck Biometry: Runner Out ?5.5 ? mm Fetus 2: BIOMETRY ----- [...] ?2 lb 10 ?oz EFW by ?Hadlock (WZC-CX-SL-FL) EFW discordance ?9.2 ? % Fetus 1: [...] medical record, and communicating with other health care taker and/or care coordination. Procedure Note Nitin Morris MD - 11/21/2023 Comp Follow Up ----- Pat. Name: KRISTYN MISHRA Study Date: 11/21/2023 9:59am Pat. NO: [id number] Referring MD: RAYA SHAH Site: Metal Mockup Maker: [address] Street RDMS : 2000 Age: 23 [...] EFW (lb,oz) 2 lb 6oz EFW by Hadlock(SWU-YD-EN-FL) EFW discordance 9.2% Head / Face / Neck Biometry: Runner Out 5.5mm Fetus 2: BIOMETRY ----- BPD 69.9mm 28w 1dHadlock OFD 94.3mm 27w 6dNicolaides HC 263.3mm 28w 5dHadlock AC 247.1mm 29w 0d 59%Hadlock Femur 49.7mm 26w 5dHadlock Humerus 45.2mm 26w 6dJeanty Weight Calculation: EFW 1,180g 27%Hadlock EFW (lb,oz) 2 lb 10oz EFW by Hadlock(AWS-AO-AW-FL) EFW discordance 9.2% Fetus 1: ANATOMY ----- [...] today's evaluation or if [facility] can [facility], please contact the Maternal- Medicine Center. anomalies may be present but not detected I spent a total of 10 minutes on the date of this encounter includingpreparing to see the patient (reviewing medical records/tests), counselingand discussing the plan of care, documenting the visit in the electronic medical record, andcommunicating with other health care taker and/or carecoordination. IMPRESSION ----- Monochorionic diamniotic twin [...] twin anemia polycythemia syndrome. Raya Dickens MD [facility] US ORDERAB LES documented in this encounter Visit Diagnoses Diagnosis 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 documented in this encounter Care Teams Software Lead Relationship Specialty Start Date End Date No Ref-Primary, Physician PCP - General 07/22/23 Mica Aguilar MD [address] [place] [address] Assigned OBGYN Provider 08/31/23 documented as of this encounter
--- OUTSIDE RECORDS SUMMARY | 2023-12-17 15:48 | XMS_ITS | Encounter Summary ---
Author Organization [place] Address [address] [facility] [address] Care Team Providers Care Blister Pack Operator Name Role Phone No Ref-Primary, Physician Primary Care Provider Mica Aguilar MD Unavailable [phone] Reason for Visit * Reason Comments Ultrasound RL2/MCA/UAR- M/D MYRTLE WTH, A: EFW 11% Encounter Details Date Type Department Care Team (Latest Contact Info) Description 11/21/2023 10:45 AM CDT Office Visit [facility] Maternal Medicine Center [place] [address] [facility] [address] [place] [address] Tomasa Dickens MD [address] [place] [address] iNtin Morris MD [address] [place] [address] Monochorionic diamniotic twin gestation in [...] Aguillon RN - 11/21/2023 10:45 AM CDT lang interpreter used via IPAD during MFM appointment. Patient reports movement x2, denies pain, contractions, leaking of fluid, or bleeding. Reports passing GCT in [place]. Patient denies headache, visual changes, nausea/vomiting, epigastric pain related to preeclampsia. SBAR given to MFM , see their note in Epic. documented in this encounter Plan of Treatment Upcoming Encounters Date Type Department Care Team (Late st Contact Info) Description 12/19/2023 11:[address] [facility] Maternal Medicine Center [place] [address] [facility] [address] [place] [address] Nitin Morris MD [address] [place] [address] 400 [place] [address] 12/19/2023 11:00 AM CDT Office Visit [facility] Medical Editor Services [facility] [place] [address] 12/19/2023 11:30 AM CDT Office Visit [facility] Medicine [place] [address] [facility] [address] [place] [phone] Nitin Morris MD [address] [place] [address] 01/02/2024 2:15 PM CDT Appointment [facility] Medicine [place] [address] [facility] [address] [place] [phone] Tomasa Dickens MD [address] [place] [address] [place] [address] 01/02/2024 2:45 PM CDT Office Visit [facility] Medicine [place] [address] [facility] [address] [place] [phone] Tomasa Dickens MD [address] [place] [address] [place] [address] 01/16/2024 2:15 PM FLASH DESIGNER Appointment [facility] [place] [address] [facility] [address] [place] [phone] Tomasa Dickens MD [address] [place] [address] [place] [address] 01/16/2024 2:45 PM FLASH DESIGNER Office Visit [facility] Medicine [place] [address] [facility] [address] [place] [phone] Tomasa Dickens MD [address] [address] [place] [address] documented as of this encounter Visit Diagnoses Diagnosis 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- Primary documented in this encounter Care Teams Blister Pack Operator Relationship Specialty Start Date End Date No Ref-Primary, Physician PCP - General 07/22/23 Mica Aguilar MD [address] [place] [address] Assigned OBGYN Provider 08/31/23 documented as of this encounter
--- OUTSIDE RECORDS SUMMARY | 2023-12-17 15:48 | XMS_ITS | Encounter Summary ---
Author Organization [place] Address [address] [facility] [place] [address] Care Team Providers Care Event Sales Representative Name Role Phone No Ref-Primary, Physician Primary Care Provider Mica Aguilar MD Unavailable [phone] Encounter Details Date Type Department Care [...] Info) Description 12/19/2023 11:00 AM CDT Appointment [facility] [place] [address] [place] [address] Nitin Morris MD [address] [place] [address] 12/19/2023 11:00 AM CDT Office Visit [facility] [employer] Supervisor Services [facility] [place] [address] 12/19/2023 11:30 AM CDT Office Visit [facility] Maternal Medicine [place] [address] [facility] [address] [place] [phone] Nitin Morris MD [address] [place] [address] 01/02/2024 2:15 PM CDT Appointment [facility] [place] [address] [facility] [address] [place] [phone] Tomasa Dickens MD [address] [place] [address] 01/02/2024 2:45 PM CDT Office Visit [facility] [place] [address] [facility] [address] [place] [phone] Tomasa Dickens MD [address] [place], [place] [address] 01/16/2024 2:15 PM EPIC AMBULATORY ANALYSTS Appointment [facility] [place] [address] [facility] [address] [place] [phone] Tomasa Dickens MD [address] [place] [address] 01/16/2024 2:45 PM EPIC AMBULATORY ANALYSTS Office Visit [facility] [place] [address] [facility] [address] [place] [phone] Tomasa Dickens MD [address] [place], [place] [address] documented as of this encounter Visit Diagnoses Not on filedocumented in this encounter Care Teams Event Sales Representative Relationship Specialty Start Date End Date No Ref-Primary, Physician PCP - General 07/22/23 Mica Aguilar MD [address] [place] [address] Assigned OBGYN Provider 08/31/23 documented as of this encounter
--- OUTSIDE RECORDS SUMMARY | 2023-12-17 15:48 | XMS_ITS | Clinical Summary ---
Author Organization [place] Address [address] [place] [address]. 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) 12/05/2023 1:58 PM CDT - 12/05/2023 11:59 PM CDT Hospital Encounter [facility] [place] [address] [place] [address] Didi Daniel MD 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 Discharge Disposition: Home or Self Care 12/05/2023 Travel 11/21/2023 10:45 AM CDT Office Visit [facility] Medicine [place] [address] [place] [address] Raya Dickens MD Nashif, Sereen, MD 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) 11/21/2023 9:59 AM CDT - 11/21/2023 11:59 PM CDT Hospital Encounter [facility] [place] [address] [place] [address] Raya Dickens MD Nashif, Sereen, MD 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 Discharge Disposition: Home or Self Care 11/21/2023 Travel 11/07/2023 2:00 PM CDT Office Visit [facility] Medicine [place] [address] [place] [address] Angelica Wright MD 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 (Primary Dx) 11/07/2023 1:01 PM CDT - 11/07/2023 11:59 PM CDT Hospital Encounter [facility] Medicine [place] [address] [place] [address] Angelica Wright MD 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 Discharge Disposition: Home or Self Care 11/07/2023 Travel 10/24/2023 2:45 PM CDT Office Visit [facility] [place] [address] [place] [address] Angelica Wright MD Nyholm, Jessica Lea, MD 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 (Primary Dx) 10/24/2023 2:10 PM CDT - 10/24/2023 11:59 PM CDT Hospital Encounter [facility] [place] [address] [place] [address] Angelica Wright MD 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 Discharge Disposition: Home or Self Care 10/24/2023 Travel 10/10/2023 11:09 AM CDT - 10/10/2023 11:59 PM CDT Hospital Encounter [facility] [address] [place] [phone] Vanita Lin MD Paredes, Carmen R Monochorionic diamniotic twin gestation in first trimester Discharge Disposition: Home or Self Care 10/10/2023 10:59 AM CDT - 10/10/2023 11:08 AM CDT Hospital Encounter [facility] [address] [place] [phone] Vanita Lin MD Monochorionic diamniotic twin gestation in first trimester Discharge Disposition: Home or Self Care 10/10/2023 Office Visit [facility] [address] [place] [phone] Esequiel Grier MD cardiac disease affecting , fetus 1 of multiple gestation (Primary Dx); cardiac disease affecting , fetus 2 of multiple gestation 10/10/2023 Travel 10/08/2023 12:15 PM CDT Office Visit [facility] [address] [place] [address] Vanita Lin MD Rauk, Case Seals MD 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 (Primary Dx) 10/08/2023 11:26 AM CDT - 10/08/2023 11:59 PM CDT Hospital Encounter [facility] [address] [place] [address] Vanita Lin MD Rauk, Phillip Neil, MD Monochorionic diamniotic twin gestation in first trimester Discharge Disposition: Home or Self Care 10/08/2023 Travel 09/30/2023 9:15 AM CDT Office Visit [facility] [place] [address] [facility] [address] [place] [phone] Vanita Lin MD Rauk, Case Seals MD 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 (Primary Dx) 09/30/2023 8:45 AM CDT - 09/30/2023 11:59 PM CDT Hospital Encounter [facility] [place] [address] [facility] [address] [place] [phone] Vanita Lin MD Rauk, Case Seals MD Monochorionic diamniotic twin gestation in first trimester Discharge Disposition: Home or Self Care 09/30/2023 Travel 09/27/2023 9:12 AM CDT Anesthesia Event [facility] [address] [phone] Agustina Dinh MD Yang, Simon, MD 09/27/2023 9:00 AM CDT - 09/27/2023 10:15 AM CDT Surgery [facility] [address] [place] [address] Heidi Swain MD [place] cervical 09/26/2023 4:43 PM CDT - 09/28/2023 12:22 PM CDT Hospital Encounter [facility] [address] [place] [address] Heidi Swain MD Cervical shortening affecting in second trimester (Primary Dx) Discharge Disposition: Home or Self Care 09/26/2023 2:45 PM CDT Office Visit [facility] [place] [address] [place] [phone] Vanita Lin MD Yamamura, Yasuko, MD 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 (Primary Dx); Cervical insufficiency during in second trimester, antepartum 09/26/2023 1:30 PM CDT [facility] Visit [facility] [address] [place] [address] Lamar Griffith 09/26/2023 1:22 PM CDT - 09/26/2023 4:42 PM CDT Hospital Encounter [facility] [place] [address] [place] [address] Vanita Lin MD Yamamura, Yasuko, MD Monochorionic [...] 12/19/2023 11:00 AM CDT Appointment [facility] [place] [address] [facility] [address] [place] [phone] Nitin Morris MD [address] [place] [address] 12/19/2023 11:00 AM CDT Office Visit [facility] [address] [place] [phone] 12/19/2023 11:30 AM CDT Office Visit [facility] [place] [address] [facility] [address] [place] [phone] Nitin Morris MD [address] [place] [address] 01/02/2024 2:15 PM CDT Appointment [facility] [place] [address] [facility] [address] [place] [phone] Raya Dickens MD [address] [place] [address] 01/02/2024 2:45 PM CDT Office Visit [facility] [place] [address] [facility] [address] [place] [phone] Raya Dickens MD [address] [place] [address] 01/16/2024 2:15 PM [employer] Appointment [facility] [place] [address] [facility] [address] [place] [phone] Raya Dickens MD [address] [place], [place] [address] 01/16/2024 2:45 PM [employer] Office Visit [facility] [place] [address] [facility] [address] [place] [address] Ryaa Dickens MD [address] [place] [address] Health Maintenance Due Date Last [...] OBGCT (OB) 10/21/2023 COVID-19 Vaccine ( - 2023- season) 2023 INFLUENZA VACCINE (#1) 2023 03/29/2014 [...] Priority Date/Time Associated Diagnosis Comments MFM TWINS COMPREHENSIVE F/U Routine 12/05/2023 2:46 PM CDT [...] CDT ? Surveillance US ----- Pat. Name: KYARA ALVAREZ ? Study Date: ??12/05/2023 2:09pm Pat. NO: ??[id number] ?Referring ??MD: RAYA SHAH Site: ? Waist Presser: Linda Lock RDMS : ??2000 ?Age: ?? [...] medical record, and communicating with other health child care worker and/or care coordination. Procedure Note Didi Daniel MD - 12/05/2023 Surveillance ----- Pat. Name: KYARA ALVAREZ Study Date: 12/05/2023 2:09pm Pat. NO: [id number] Referring MD: RAYA SHAH Site: Waist Presser: Linda Lock RDMS : 2000 Age: 23 [...] electronic medical record, andcommunicating with other health child care worker and/or carecoordination. IMPRESSION ----- Monochorionic diamniotic twin [...] twin anemia polycythemia syndrome. Raya Dickens MD [facility] US ORDERAB LES * ECHO - TWIN B COMPLETE (10/10/2023 1:35 PM CDT) Anatomical Region Laterality Modality Echocardiography 10/10/2023 12:0 8 PM CDT Narrative 10/10/2023 2:59 PM CDT [id number]^RILEY^VANITA ? Study ID: [id number] ?[facility] ?[facility] ?[address] ?[place] [address] ? Echocardiogram Name: KYARA ALVAREZ Study Date: [...] to the left atrium. There is laminar dyxbt-mx-uruj shunting across the foramen ovale. Atrioventricular valves: [...] Procedure Note Esequiel Grier MD - 10/10/2023 [id number] REPLACED BY [facility] [id number]^MANUEL Study ID:[id number] [facility] [address] [address] Echocardiogram Name: ROLANDO VILLEGAS KYARA Tiago Study Date: 10/10/2023 12:08 PM Patient Location: [...] in to the left atrium. There is afzecnoaibgt-xk-pann shunting across the foramen ovale. Atrioventricular valves: [...] PM CDT Narrative 10/10/2023 3:00 PM CDT [id number]^RILEY^VANITA ? Study ID: [id number] ?[facility] ?[facility] ?[address] ?[place] [address] ? Echocardiogram Name: KYARA ALVAREZ Study Date: 10/10/2023 12:34 PM ? [facility] to the left atrium. There is laminar etpcp-de-bcgf shunting across the foramen ovale. Atrioventricular valves: [...] Procedure Note Esequiel Grier MD - 10/10/2023 [id number] [facility] [id number]^RILEY^VANITA Study ID:[id number] [facility] [place] [address] Echocardiogram Name: KYARA ALVAREZ Study Date: 10/10/2023 12:34 PM Patient Location: [facility] [...] in to the left atrium. There is brfvkcwkncrk-ov-njph shunting across the foramen ovale. Atrioventricular valves: [...] Esequiel Grier MD 10/10/2023 03:00 PM Vanita Riley MD CV PEDS ECHO ORDERAB LES * Spinal Block (09/27/2023 9:20 AM CDT) Narrative Chapo Rutherford MD - 09/27/2023 9:20 AM CDT Chapo Rutherford MD ? 09/27/2023 ??9:39 AM Intrathecal injection Procedure Note Pre-Procedure Staff - ? Anesthesiologist: ??Agsutina Dinh MD ? Resident/Fellow: Chapo Rutherford MD [...] Medication Administration Time: 09/27/2023 9:20 AM FOR [facility] ([facility]) ONLY: ?? Pain Team Contact information: please page the Pain Team Via [employer]. Search Pain. During daytime hours, please page the attending first. At night please page the resident first. Agustina Dinh MD [place] ANESTHESIA * (ABNORMAL) UA with Microscopic (09/26/2023 [...] 09/26/2023 6:37 PM CDT UR LABORATORY Specific [place] Urine 1.018 1.003 - 1.035 09/26/2023 6:37 [...] MD LAB - URINE ORDERABLES UR LABORATORY [facility] [address] [facility], [address] [place] [address] * Urine Culture (09/26/2023 5:51 PM CDT) Pathologist [facility] Culture No Growth XIOMARA 09/28/2023 6:20 AM CDT [facility]U IDD LABORATORY Urine MID-STREAM URINE SPECIMEN / Unknown Non-blood Collection / Unknown 09/26/2023 5:51 PM CDT 09/26/2023 6:04 PM CDT Socorro Danielson MD LAB - MICRO GENERAL ORDERABLES [facility] IDD LABORATORY [facility] Inf. Diseases Diag. Lab [address] [facility], [address] [place] [address] * (ABNORMAL) Wet prep (09/26/2023 5:50 PM CDT) [facility] Trichomonas Absent Absent XIOMARA 09/26/2023 6:28 PM [...] LAB - MICRO GENERAL ORDERABLES UR LABORATORY [facility] [address] [facility], [address] [place] [address] * Neisseria gonorrhoea PCR (09/26/2023 5:50 PM CDT) Pathologist [facility] Neisseria gonorrhoeae Negative Negative 09/27/2023 11:37 AM CDT [facility]U IDD LABORATORY Comment:Negative for N. gono rrhoeae rRNA by licensed mass real estate appraiser mediated amplification. A negative result by licensed mass real estate appraiser mediated amplification does not preclude the presence of C. trachomatis infection because results are dependent on proper and adequate collection, absence of inhibitors and sufficient rRNA to be detected. Swab VAGINAL STRUCTURE / Unknown Non-blood Collection / Unknown 09/26/2023 5:50 PM CDT 09/26/2023 6:03 PM CDT Socorro Danielson MD LAB - MICRO GENERAL ORDERABLES [facility] IDD LABORATORY [facility] Inf. Diseases Diag. Lab [address] [facility], [address] * Chlamydia trachomatis PCR (09/26/2023 5:50 PM CDT) Chlamydia trachomatis Negative Negative 09/27/2023 11:37 AM CDT [facility] ID[facility] LABORATORY Comment:A negative result by licensed mass real estate appraiser mediated amplification does not preclude the presence of C. trachomatis infection because results are dependent on proper and adequate collection, absence of inhibitors and sufficient rRNA to be detected. Swab VAGINAL STRUCTURE / Unknown Non-blood Collection / Unknown 09/26/2023 5:50 PM CDT 09/26/2023 6:03 PM CDT Socorro Danielson MD LAB - MICRO GENERAL ORDERABLES Performing Organization Address City/[facility] Co de Phone Number UU IDD LABORATORY [facility] Inf. Diseases Diag. Lab [address] [facility], [address] * Extra Serum Separator Tube (SST) (09/26/2023 5:15 PM CDT) Hold Specimen JIC 09/26/2023 6:32 PM CDT UR LABORATORY Blood STRUCTURE OF RIGHT UPPER LIMB / Unknown Venipuncture / Unknown 09/26/2023 5:15 PM CDT 09/26/2023 5:24 PM CDT Heidi Swain MD LAB - BLOOD ORDERA BLES UR LABORATORY [facility] [address] [place] [address], Room [place] [phone] [place] [address] * Extra Green Top ([place] Heparin) Tube (09/26/2023 5:15 PM CDT) Hold Specimen JIC 09/26/2023 6:32 PM CDT UR LABORATORY Blood STRUCTURE OF RIGHT UPPER LIMB / Unknown Venipuncture / Unknown 09/26/2023 5:15 PM CDT 09/26/2023 5:25 PM CDT Heidi Swain MD LAB - BLOOD ORDERA BLES Performing Organization Address City/[facility]/ZIP Co de Phone Number UR LABORATORY [facility] [address] [place] [address], [address] * Adult Type and Screen (09/26/2023 5:15 PM CDT) ABO/RH(D) A POS 09/26/2023 4:59 PM CDT UR BLOOD BANK Antibody Screen Negative Negative 09/26/2023 4:59 PM CDT UR BLOOD BANK SPECIMEN EXPIRATION DATE [id number] 09/26/2023 4:59 PM CDT UR BLOOD BANK Blood STRUCTURE OF RIGHT UPPER LIMB / Unknown Venipuncture / Unknown 09/26/2023 5:15 PM CDT 09/26/2023 5:20 PM CDT Socorro Danielson MD LAB - BLOOD BANK TEST ORDER UR BLOOD BANK [facility] [place] Blood [facility]onents Lab [address] [place] [address], Room [place] [phone] * (ABNORMAL) CBC with platelets (09/26/2023 [...] MD LAB - BLOOD ORDERABLES UR LABORATORY [facility] [address] [facility], [address] [place] [address], [facility] * MFM Twins US Comprehensive [...] ? Study Date: ??09/26/2023 1:31pm Pat. NO: ??[id number] ?Referring ??: RAYA SHAH Site: ? Waist Presser: Christopher Street RDMS : ??2000 ?Age: ?? [...] lb 11 ? oz EFW by ?Hadlock ([id number]) EFW discordance ?13.8 ?% Head / Face / Neck Biometry: Natural Resource Officer ?5.3 ? mm CM ? 2.4 ? [...] lb 13 ? oz EFW by ?Hadlock ([id number]) EFW discordance ?13.8 ?% Head / Face / Neck Biometry: Natural Resource Officer ?6.9 ? mm CM ? 4.3 ? [...] view. RVOT view. LVOT view. 3-vessel view. 0-wsusqe-iqfufmw view. Situs. Aortic arch view. Bicaval view. [...] view. RVOT view. LVOT view. 3-vessel view. 0-teopiy-awtydmz view. Situs. Aortic arch view. Bicaval view. [...] the patient (reviewing medical records/tests), in direct xaqh-ja-pmqm contact with the patient during her visit with the majority spent counseling and discussing the plan of care and documenting the visit in the electronic medical record. Please see note for details. Procedure Note Angelica Wright MD - 10/08/2023 Comprehensive ----- Pat. Name: KYARA ALVAREZ Study Date: 09/26/2023 1:31pm Pat. NO: [id number] Referring MD: RAYA SHAH Site: Waist Presser: Christopher Street RDMS : 2000 Age: 22 [...] EFW (lb,oz) 0 lb 11oz EFW by Hadlock([id number]) EFW discordance 13.8% Head / Face / Neck Biometry: Natural Resource Officer 5.3mm CM 2.4mm Nasal bone 5.9mm Fetus 2: BIOMETRY ----- BPD 46.2mm 20w 0dHadlock OFD 62.0mm 20w 0dNicolaides HC 172.9mm 19w 6dHadlock Cerebellum tr 19.7mm 18w 6dNicolaides Nuchal fold 4.4mm AC 155.0mm 20w 5d 52%Hadlock Femur 34.9mm 21w 0dHadlock Humerus 30.9mm 20w 2dJeanty Weight Calculation: EFW 371g 59%Hadlock EFW (lb,oz) 0 lb 13oz EFW by Hadlock([id number]-[id number]-EA-FL) EFW discordance 13.8% Head / Face / Neck Biometry: Natural Resource Officer 6.9mm CM 4.3mm Nasal bone 5.8mm Fetus 1: ANATOMY ----- The following structures appear normal: Head / Neck Cranium. Head size. Head shape.Lateral ventricles. Choroid plexus. Midline falx. Cavum septi pellucidi.Cerebellum. Cisterna magna. Parenchyma. Thalami. Vermis. Neck. Nuchal fold. Face Lips. Profile. Nose. Maxilla.Mandible. Orbits. Lens. Heart / Thorax 4-chamber view. RVOT view. LVOT view.3-vessel view. 2-noiars-xzolesv view. Situs. Aortic arch view. Bicavalview. Ductal [...] 4-chamber view. RVOT view. LVOT view.3-vessel view. 6-btaits-oukwzef view. Situs. Aortic arch view. Bicavalview. Ductal [...] see the patient (reviewing medical records/tests), in hnwzswhafi-rh-zqql contact with the patient during her visit [...] length of 8 mm. Vanita Lin MD [facility] ORDERABLE S * [place] [employer] Non-Invasive Screening???Prequel (08/08/2023 12:45 PM CDT) See Scanned Result [employer] NON-INVASIVE SCREENING PREQUEL-Scann ed 08/14/2023 11:49 AM CDT [facility] Blood STRUCTURE OF RIGHT UPPER LIMB / Unknown Venipuncture / Unknown 08/08/2023 12:45 PM CDT 08/08/2023 12:45 PM CDT Nelsy Diaz GC LAB - BLOOD ORDERABL ES [facility] [address] [place] [address], [facility] [phone] from Last 3 Months or Most Recently Relevant to Health Maintenance Advance Directives For more information, please contact: [phone] * Full Code (Latest Code Status on File) Date Activated Date Inactivated Comments 09/26/2023 4:59 PM 09/27/2023 12:16 PM All basic a nd advanced life-sustaining interventions are performed as appropriate Question Answer Comments Code status determined by: Discussion with martin nt/ legal decision maker Care Teams Booky Relationship Specialty Start Date End Date No Ref-Primary, Physician PCP - General 07/22/23 Vanita Lin MD [address] [facility] [address] [place] [address] Assigned OBGYN Provider 08/31/23
--- OUTSIDE RECORDS SUMMARY | 2023-12-17 15:48 | XMS_ITS | Encounter Summary ---
Author Organization [place] Address [address] [facility] [place] [address] Care Team Providers Care Joinery Factory Worker Name Role Phone No Ref-Primary, Physician Primary Care Provider Mica Aguilar MD Unavailable [phone] Encounter Details Date Type Department Care [...] Info) Description 12/19/2023 11:00 AM CDT Appointment [facility] M[facility] Medicine [facility] [place] [address] [place] [address] Nitin Morris MD [address] [place] [address] 12/19/2023 11:00 AM CDT Office Visit [facility] Entertainment Director Services [facility] [place] [address] 12/19/2023 11:30 AM CDT Office Visit [facility] Maternal Medicine [place] [address] [facility] [address] [place] [phone] Nitin Morris MD [address] [place] [address] 01/02/2024 2:15 PM CDT Appointment [facility] Maternal Medicine [place] [address] [facility] [address] [place] [phone] Tomasa Dickens MD [address] [place] [address] 01/02/2024 2:45 PM CDT Office Visit [facility] Maternal Medicine [place] [address] [facility] [address] [place] [phone] Tomasa Dickens MD [address] [place], [place] [address] 01/16/2024 2:15 PM HEARING DOG TRAINER Appointment [facility] Maternal Medicine [place] [address] [facility] [address] [place] [phone] Tomasa Dickens MD [address] [place] [address] 01/16/2024 2:45 PM HEARING DOG TRAINER Office Visit [facility] Maternal Medicine [place] [address] [facility] [address] [place] [phone] Tomasa Dickens MD [address] [place], [place] [address] documented as of this encounter Visit Diagnoses Not on filedocumented in this encounter Care Teams Joinery Factory Worker Relationship Specialty Start Date End Date No Ref-Primary, Physician PCP - General 07/22/23 Mica Aguilar MD [address] [place] [address] Assigned OBGYN Provider 08/31/23 documented as of this encounter
--- OUTSIDE RECORDS SUMMARY | 2023-12-17 15:48 | XMS_ITS | Referral Summary ---
Author Organization [place] Address [facility] [place] [address] Care Team Providers Care Account Resolution Analyst Name Role Phone No Ref-Primary, Physician Primary Care Provider Vanita Lin MD Unavailable [phone] Encounters Date Type Department Care Team Description 12/05/2023 Travel 12/05/2023 2:45 PM CDT Office Visit [facility] [address] [facility] [address] [place] [phone] Didi Daniel MD 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) 12/05/2023 1:58 PM CDT - 12/05/2023 11:59 PM CDT Hospital Encounter [facility] [address] [place] [address] Didi Daniel MD 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 Discharge Disposition: Home or Self Care 11/21/2023 Travel 11/21/2023 10:45 AM CDT Office Visit [facility] [address] [place] [address] Raya Dickens MD Nashif, Sereen, MD 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) 11/21/2023 9:59 AM CDT - 11/21/2023 11:59 PM CDT Hospital Encounter [facility] Maternal Medicine [place] [address] [place] [address] Raya Dickens MD Nashif, Sereen, MD 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 Discharge Disposition: Home or Self Care 11/07/2023 Travel 11/07/2023 2:00 PM CDT Office Visit [facility] Maternal Medicine [place] [address] [place] [address] Angelica Wright MD 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 (Primary Dx) 11/07/2023 1:01 PM CDT - 11/07/2023 11:59 PM CDT Hospital Encounter [facility] Medicine [place] [address] [place] [address] Angelica Wright MD 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 Discharge Disposition: Home or Self Care 10/24/2023 Travel 10/24/2023 2:45 PM CDT Office Visit [facility] Medicine [place] [address] [place] [address] Angelica Wright MD Nyholm, Jessica Lea, MD 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 (Primary Dx) 10/24/2023 2:10 PM CDT - 10/24/2023 11:59 PM CDT Hospital Encounter [facility] Maternal Medicine [place] [address] [place] [address] Angelica Wright MD 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 Discharge Disposition: Home or Self Care 10/10/2023 Office Visit [facility] [address] [phone] Esequiel Grier MD cardiac disease affecting , fetus 1 of multiple gestation (Primary Dx); cardiac disease affecting , fetus 2 of multiple gestation 10/10/2023 Travel 10/10/2023 11:09 AM CDT - 10/10/2023 11:59 PM CDT Hospital Encounter [facility] [address] [place] [phone] Vanita Lin MD Paredes, Carmen R Monochorionic diamniotic twin gestation in first trimester Discharge Disposition: Home or Self Care 10/10/2023 10:59 AM CDT - 10/10/2023 11:08 AM CDT Hospital Encounter [facility] [address] [place] [phone] Vanita Lin MD Monochorionic diamniotic twin gestation in first trimester Discharge Disposition: Home or Self Care 10/08/2023 Travel 10/08/2023 12:15 PM CDT Office Visit [facility] [place] [address] [place] [address] Vanita Lin MD Rauk, Phillip Neil, MD 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 (Primary Dx) 10/08/2023 11:26 AM CDT - 10/08/2023 11:59 PM CDT Hospital Encounter [facility] [address] [place] [address] Vanita Lin MD Rauk, Phillip Neil, MD Monochorionic diamniotic twin gestation in first trimester Discharge Disposition: Home or Self Care 09/30/2023 Travel 09/30/2023 9:15 AM CDT Office Visit [facility] [address] [place] [address] Vanita Lin MD Rauk, Phillip Neil, MD 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 (Primary Dx) 09/30/2023 8:45 AM CDT - 09/30/2023 11:59 PM CDT Hospital Encounter [facility] [address] [place] [address] Vanita Lin MD Rauk, Case Seals MD Monochorionic diamniotic twin gestation in first trimester Discharge Disposition: Home or Self Care 09/26/2023 4:43 PM CDT - 09/28/2023 12:22 PM CDT Hospital Encounter [facility] [address] [place], [place] [address] [address] Heidi Swain MD Cervical shortening affecting in second trimester (Primary Dx) Discharge Disposition: Home or Self Care 09/27/2023 9:12 AM CDT Anesthesia Event [facility] [address] [place], [place] [address] [address] Agustina Dinh MD Yang, Simon, MD 09/27/2023 9:00 AM CDT - 09/27/2023 10:15 AM CDT Surgery [facility] [address] [place], [place] [address]De[place] [address] Heidi Swain MD Cerclage cervical 09/26/2023 Travel 09/26/2023 1:30 PM CDT Office Visit [facility] Mill Crane Operator Services [address] [place] [phone] Lamar Griffith 09/26/2023 2:45 PM CDT Office Visit [facility] [address] [facility] [address] [place] [phone] Vanita Lin MD Yamamura, Yasuko, MD 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 (Primary Dx); Cervical insufficiency during in second trimester, antepartum 09/26/2023 1:22 PM CDT - 09/26/2023 4:42 PM CDT Hospital Encounter [facility] [place] [address] [facility] [address] [place] [phone] Vanita Lin MD Yamamura, Yasuko, MD Monochorionic [...] Info) Description 12/19/2023 11:00 AM CDT Appointment [facility] Maternal Medicine [place] [address] [facility] [address] [place] [phone] Nitin Morris MD [address] [place] [address] 12/19/2023 11:00 AM CDT Office Visit [facility] [employer] Operator Services [address] [place] [phone] 12/19/2023 11:30 AM CDT Office Visit [facility] Medicine [place] [address] [address] [facility] [address] [place] [phone] Nitin Morris MD [address] [place] [address] 01/02/2024 2:15 PM CDT Appointment [facility] Maternal Medicine [place] [address] [address] [facility] [address] [place] [phone] Raya Dickens MD [address] [place] [address] 01/02/2024 2:45 PM CDT Office Visit [facility] Maternal Medicine [place] [address] [facility] [address] [place] [phone] Raya Dickens MD [address] [place] [address] 01/16/2024 2:15 PM SCANNER OPERATOR Appointment [facility] Maternal Medicine [place] [address] [facility] [address] [place] [phone] Raya Dickens MD [address] [place] [address] 01/16/2024 2:45 PM SCANNER OPERATOR Office Visit [facility] [place] [address] [facility] [address] [place] [address] Raya Dickens MD [address] [place], [place] [address] Procedures Procedure Name Priority Date/Time Associated Diagnosis [...] ? Study Date: ??12/05/2023 2:09pm Pat. NO: ??[id number] ?Referring ??MD: RAYA SHAH Site: ? Manager Treasury: Linda Lock RDMS : ??2000 ?Age: ?? [...] record, and communicating with other health child day care teacher and/or care coordination. Procedure Note Didi Daniel MD - 12/05/2023 Surveillance ----- Pat. Name: MARSHALL VILLEGASKYARA MARX Study Date: 12/05/2023 2:09pm Pat. NO: [id number] Referring MD: RAYA SHAH Site: Manager Treasury: Linda Lock RDMS : 2000 Age: 23 [...] medical record, andcommunicating with other health child day care teacher and/or carecoordination. IMPRESSION ----- Monochorionic diamniotic twin [...] or twin anemia polycythemia syndrome. Raya CARDENAS MFM US ORDERAB LES * ECHO - TWIN B COMPLETE (10/10/2023 1:35 PM CDT) Anatomical Region Laterality Modality Echocardiography 10/10/2023 12:0 8 PM CDT Narrative 10/10/2023 2:59 PM CDT [id number]^RILEY^VANITA ? Study ID: [id number] ?[facility] ?[facility] ?[address] ?[place] [address] ? Echocardiogram Name: KYARA ALVAREZ Study Date: 10/10/2023 12:08 PM ? Patient Location: [facility] Gender: Female ?Patient Class: Outpatient : 2000 [...] to the left atrium. There is laminar vgsnk-lg-veff shunting across the foramen ovale. Atrioventricular valves: [...] Procedure Note Esequiel Grier MD - 10/10/2023 [id number]^RILEY^VANITA Study ID:[id number] [facility] [address] [address] Echocardiogram Name: KYARA ALVAREZ Study Date: 10/10/2023 12:08 PM Patient Location: [facility] Gender: Female Patient Class:Outpatient : 2000 Age: [...] in to the left atrium. There is phiudxppczxp-pg-sufg shunting across the foramen ovale. Atrioventricular valves: [...] PM CDT Narrative 10/10/2023 3:00 PM CDT [id number]^RLIEY^VANITA ? Study ID: [id number] ?[facility] ?[facility] ?[facility] ?[place] [address] ? Echocardiogram Name: ROLANDO BELLAARASELI KYARA Tiago Study Date: 10/10/2023 12:34 PM ? Patient Location: [facility] Gender: Female ?Patient Class: Outpatient : 2000 [...] to the left atrium. There is laminar ywmkr-dt-uesd shunting across the foramen ovale. Atrioventricular valves: [...] Procedure Note Esequiel Grier MD - 10/10/2023 [id number]^MANUEL Study ID:[id number] [facility] [address] [place] [address] Echocardiogram Name: KYARA ALVAREZ Study Date: 10/10/2023 12:34 PM Patient Location: [facility] Gender: Female Patient Class:Outpatient : 2000 Age: 22 yrs Ordering Provider: VANITA LIN Referring Provider: VANITA LIN Performed By: Doris Black Reading Physician: Esequiel Grier MD Reason For Study: [facility] Data: Number of fetuses: This is [...] in to the left atrium. There is moizchkbjvfm-uv-ikap shunting across the foramen ovale. Atrioventricular valves: [...] Medication Administration Time: 09/27/2023 9:20 AM FOR [facility] ([facility]) ONLY: ?? Pain Team Contact information: please page the Pain Team Via [employer]. Search Pain. During daytime hours, please page the attending first. At night please page the resident first. Agustina Dinh MD NE ANESTHESIA * (ABNORMAL) UA with Microscopic (09/26/2023 [...] 09/26/2023 6:37 PM CDT UR LABORATORY Specific [place] Urine 1.018 1.003 - 1.035 09/26/2023 6:37 [...] [facility] [address] [facility] [place] [address] * Urine Culture (09/26/2023 5:51 PM CDT) Culture No Growth [id number] 09/28/2023 6:20 AM CDT [facility] ID[facility] LABORATORY Urine MID-STREAM URINE SPECIMEN / Unknown Non-blood Collection / Unknown 09/26/2023 5:51 PM CDT 09/26/2023 6:04 PM CDT Socorro Danielson MD LAB - MICRO GENERAL ORDERABLES [facility] LABORATORY [facility] Inf. Diseases Diag. Lab [address] [facility], [address] [place] [address] * (ABNORMAL) Wet prep [...] LAB - MICRO GENERAL ORDERABLES UR LABORATORY [facility] [address] [facility], [address] [place] [address] * Neisseria gonorrhoea PCR (09/26/2023 5:50 PM CDT) Neisseria gonorrhoeae Negative Negative 09/27/2023 11:37 AM CDT [facility] LABORATORY Comment:Negative for N. gono rrhoeae rRNA by lime burner mediated amplification. A negative result by lime burner mediated amplification does not preclude the presence of C. trachomatis infection because results are dependent on proper and adequate collection, absence of inhibitors and sufficient rRNA to be detected. Swab VAGINAL STRUCTURE / Unknown Non-blood Collection / Unknown 09/26/2023 5:50 PM CDT 09/26/2023 6:03 PM CDT Socorro Danielson MD LAB - MICRO GENERAL ORDERABLES [facility] LABORATORY [facility] Inf. Diseases Diag. Lab [address] [facility], [address] [place] [address] * Chlamydia trachomatis PCR (09/26/2023 5:50 PM CDT) Chlamydia trachomatis Negative Negative 09/27/2023 11:37 AM CDT [facility] LABORATORY Comment:A negative result by lime burner mediated amplification does not preclude the presence of C. trachomatis infection because results are dependent on proper and adequate collection, absence of inhibitors and sufficient rRNA to be detected. Swab VAGINAL STRUCTURE / Unknown Non-blood Collection / Unknown 09/26/2023 5:50 PM CDT 09/26/2023 6:03 PM CDT Socorro Danielson MD LAB - MICRO GENERAL ORDERABLES [facility] ID[facility] LABORATORY [facility] Inf. Diseases Diag. Lab [address] [facility], [address] [place] [address] * Extra Serum Separator Tube (SST) (09/26/2023 5:15 PM CDT) Hold Specimen [facility] 09/26/2023 6:32 PM CDT UR LABORATORY Blood STRUCTURE OF RIGHT UPPER LIMB / Unknown Venipuncture / Unknown 09/26/2023 5:15 PM CDT 09/26/2023 5:24 PM CDT Heidi Swain MD LAB - BLOOD ORDERA BLES UR LABORATORY [facility] Acute Care Lab [address] [place] [address], [address] [address] * Extra Green Top (Laplace Heparin) Tube (09/26/2023 5:15 PM CDT) Hold Specimen [facility] 09/26/2023 6:32 PM CDT UR LABORATORY Blood STRUCTURE OF RIGHT UPPER LIMB / Unknown Venipuncture / Unknown 09/26/2023 5:15 PM CDT 09/26/2023 5:25 PM CDT Heidi Swain MD LAB - BLOOD ORDERA BLES UR LABORATORY [facility] Acute Care Lab [address] [place] [address], [address] [address] * Adult Type and Screen (09/26/2023 5:15 PM CDT) ABO/RH(D) A POS 09/26/2023 4:59 PM CDT UR BLOOD BANK Antibody Screen Negative Negative 09/26/2023 4:59 PM CDT UR BLOOD BANK SPECIMEN EXPIRATION DATE [id number] 09/26/2023 4:59 PM CDT UR BLOOD BANK Blood STRUCTURE OF RIGHT UPPER LIMB / Unknown Venipuncture / Unknown 09/26/2023 5:15 PM CDT 09/26/2023 5:20 PM CDT Socorro Danielson MD LAB - BLOOD BANK TEST ORDER Performing Organization Address City/[facility]/ZIP Co de Phone Number UR BLOOD BANK [facility] Blood Components Lab [address] [place] [address], [address] [place] [phone] * (ABNORMAL) CBC with platelets [...] [facility] [address] [facility] [place] [address], [facility] * MFM Twins US Comprehensive [...] ? Study Date: ??09/26/2023 1:31pm Pat. NO: ??[id number] ?Referring ??MD: RAYA SHAH Site: ? Manager Treasury: [address] RDMS : ??2000 ?Age: ?? [...] Humerus ? 28.5 ? mm ?19w 2d ?[place] Weight Calculation: EFW ?320 ? g ? 20% ?Hadlock EFW (lb,oz) ?0 lb 11 ? oz EFW by ?Hadlock ([id number]) EFW discordance ?13.8 ?% Head / Face / Neck Biometry: Drill Instructor ?5.3 ? mm CM ? 2.4 ? [...] lb 13 ? oz EFW by ?Hadlock ([id number]) EFW discordance ?13.8 ?% Head / Face / Neck Biometry: Drill Instructor ?6.9 ? mm CM ? 4.3 ? [...] view. RVOT view. LVOT view. 3-vessel view. 4-regmug-uxebxeo view. Situs. Aortic arch view. Bicaval view. [...] view. RVOT view. LVOT view. 3-vessel view. 6-zlzykc-lmkogyi view. Situs. Aortic arch view. Bicaval view. [...] the patient (reviewing medical records/tests), in direct nqhs-do-jmgj contact with the patient during her visit with the majority spent counseling and discussing the plan of care and documenting the visit in the electronic medical record. Please see note for details. Procedure Note Angelica Wright MD - 10/08/2023 Comprehensive ----- Pat. Name: KYARA ALVAREZ Study Date: 09/26/2023 1:31pm Pat. NO: [id number] Referring MD: RAYA SHAH Site: Manager Treasury: [address] RDMS : 2000 Age: 22 [...] EFW (lb,oz) 0 lb 11oz EFW by Hadlock([id number]-JM-[id number]) EFW discordance 13.8% Head / Face / Neck Biometry: Drill Instructor 5.3mm CM 2.4mm Nasal bone 5.9mm Fetus 2: BIOMETRY ----- BPD 46.2mm 20w 0dHadlock OFD 62.0mm 20w 0dNicolaides HC 172.9mm 19w 6dHadlock Cerebellum tr 19.7mm 18w 6dNicolaides Nuchal fold 4.4mm AC 155.0mm 20w 5d 52%Hadlock Femur 34.9mm 21w 0dHadlock Humerus 30.9mm 20w 2dJeanty Weight Calculation: EFW 371g 59%Hadlock EFW (lb,oz) 0 lb 13oz EFW by Hadlock([id number]-[id number]-QB-FL) EFW discordance 13.8% Head / Face / Neck Biometry: Drill Instructor 6.9mm CM 4.3mm Nasal bone 5.8mm Fetus 1: ANATOMY ----- The following structures appear normal: Head / Neck Cranium. Head size. Head shape.Lateral ventricles. Choroid plexus. Midline falx. Cavum septi pellucidi.Cerebellum. Cisterna magna. Parenchyma. Thalami. Vermis. Neck. Nuchal fold. Face Lips. Profile. Nose. Maxilla.Mandible. Orbits. Lens. Heart / Thorax 4-chamber view. RVOT view. LVOT view.3-vessel view. 2-ymxhpw-zxvczji view. Situs. Aortic arch view. Bicavalview. Ductal [...] 4-chamber view. RVOT view. LVOT view.3-vessel view. 0-hevtut-ozeojmn view. Situs. Aortic arch view. Bicavalview. Ductal [...] see the patient (reviewing medical records/tests), in zqlawanqku-sa-mgye contact with the patient during her visit [...] of 8 mm. Vanita Lin MD [facility] ORDERABLE S * [facility] Non-Invasive Screening???Prequel (08/08/2023 12:45 PM CDT) See Scanned Result [employer] NON-INVASIVE SCREENING PREQUEL-Scann ed 08/14/2023 11:49 AM CDT [employer] Blood STRUCTURE OF RIGHT UPPER LIMB / Unknown Venipuncture / Unknown 08/08/2023 12:45 PM CDT 08/08/2023 12:45 PM CDT Nelsy Diaz GC LAB - BLOOD ORDERABL ES [employer] [address] [phone] from Last 3 Months or Most Recently Relevant to Health Maintenance Advance Directives For more information, please contact: [phone] * Full Code (Latest Code Status on File) Date Activated Date Inactivated Comments 09/26/2023 4:59 PM 09/27/2023 12:16 PM All basic a nd advanced life-sustaining interventions are performed as appropriate Question Answer Comments Code status determined by: Discussion with martin nt/ legal decision maker Care Teams Account Resolution Analyst Relationship Specialty Start Date End Date No Ref-Primary, Physician PCP - General 07/22/23 Vanita Lin MD [address] [address] Assigned OBGYN Provider 08/31/23
--- OUTSIDE RECORDS SUMMARY | 2023-12-17 15:49 | XMS_ITS | Encounter Summary ---
Author Organization [place] Address [address] [facility] [place] [address] Care Team Providers Care Steel Plate Printer Name Role Phone No Ref-Primary, Physician Primary Care Provider Mica Aguilar MD Unavailable [phone] Reason for Visit * Reason Comments Ultrasound RL2-TTTS check, Twin A and B: Elevated UAR, Twin A: Mild poly Encounter Details Date Type Department Care Team (Latest Contact Info) Description 10/08/2023 12:15 PM CDT Office Visit [facility] Maternal Medicine Center [place] [address] [facility] [address] [place] [address] Mica Aguilar MD [address] [place] [address] Case Berrios MD [address] [place] [address] Monochorionic diamniotic twin gestation in [...] for details of today's [facility] at [facility]. Case Berrios MD Maternal- Medicine documented in this encounter Nursing Notes * Blank Juarez RN - 10/08/2023 12:15 PM CDT Patient presents to [facility] for RL2/TTTS check at 22w1d due to Twin A and B: Elevated UAR, Twin A: Mildpoly. Positive movement x2. Denies LOF, vaginal bleeding or cramping/contractions. Spoke withpt via paraprofessional interpreter. SBAR given to WINNIE FERNANDO, see their note in Epic. documented in this encounter Plan of Treatment Upcoming Encounters Date Type Department Care Team (Late st Contact Info) Description 12/19/2023 11:[address] [facility] Maternal Medicine [facility] [address] [facility] [address] [place] [address] Nitin Morris MD [address] [place] [address] 400 [place], [place] [phone] 12/19/2023 11:00 AM CDT [facility] Equipment Application Specialist Services [facility] [place] [address] 12/19/2023 11:30 AM CDT Office Visit [facility] Maternal Medicine [facility] [address] [facility] [address] [place] [address] Nitin Morris MD [address] [place] [address] 01/02/2024 2:[address] [facility] Maternal Medicine [place] [address] [facility] [address] [place] [phone] Tomasa Dickens MD [address] [place], [place] [address] 01/02/2024 2:45 PM CDT Office Visit [facility] Maternal Medicine [place] [address] [facility] [address] [place] [phone] Tomasa Dickens MD [address] [place], [place] [address] 01/16/2024 2:15 PM DOLLY PUSHER Appoint[address] [facility] Maternal Medicine [place] [address] [facility] [address] [place] [phone] Tomasa Dickens MD [address] [place], [place] [address] 01/16/2024 2:45 PM DOLLY PUSHER Office Visit [facility] Maternal Medicine [place] [address] [facility] [address] [place] [phone] Tomasa Dickens MD [address] [place], [place] [address] documented as of this encounter Visit Diagnoses Diagnosis 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- Primary documented in this encounter Care Teams Steel Plate Printer Relationship Specialty Start Date End Date No Ref-Primary, Physician PCP - General 07/22/23 Mica Aguilar MD [address] [place] [address] Assigned OBGYN Provider 08/31/23 documented as of this encounter
--- OUTSIDE RECORDS SUMMARY | 2023-12-17 15:49 | XMS_ITS | Encounter Summary ---
Author Organization [place] Address [address] [place] [address] Care Team Providers Care Gui Developer Name Role Phone No Ref-Primary, Physician Primary Care Provider Mica Aguilar MD Unavailable [phone] Encounter Details Date Type Department Care Team [...] Appointment [facility] Maternal Medicine Center [place] [address] [place] [address] Nitin Morris MD [address] [place] [address] 12/19/2023 11:00 AM CDT Office Visit [facility] Cast [employer] [facility] [place] [address] 12/19/2023 11:30 AM CDT Office Visit [facility] Maternal Medicine [place] [address] [facility] [address] [place] [phone] Nitin Morris MD [address] [place] [address] 01/02/2024 2:15 PM CDT Appointment [facility] Maternal Medicine [place] [address] [facility] [address] [place] [phone] Tomasa Dickens MD [address] [place] [address] 01/02/2024 2:45 PM CDT Office Visit [facility] Maternal Medicine [place] [address] [facility] [address] [place] [phone] Tomasa Dickens MD [address] [place], [place] [address] 01/16/2024 2:15 PM CHIEF SUBSTATION OPERATOR Appointment [facility] Maternal Medicine [place] [address] [facility] [address] [place] [phone] Tomasa Dickens MD [address] [place] [address] 01/16/2024 2:45 PM CHIEF SUBSTATION OPERATOR Office Visit [facility] Maternal Medicine [place] [address] [facility] [address] [place] [phone] Tomasa Dickens MD [address] [place], [place] [address] documented as of this encounter Visit Diagnoses Not on filedocumented in this encounter Care Teams Gui Developer Relationship Specialty Start Date End Date No Ref-Primary, Physician PCP - General 07/22/23 Mica Aguilar MD [address] [place] [address] Assigned OBGYN Provider 08/31/23 documented as of this encounter
--- OUTSIDE RECORDS SUMMARY | 2023-12-17 15:49 | XMS_ITS | Encounter Summary ---
Author Organization [place] Address [address] [place] [address]. 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 Procedures Echo (TTE) Complete Vanita Lin MD [address] [place] [address] [facility] [address] [place] [phone] Referral ID Status Reason Start Date Expiration Date Visits Re quested Visits Authorized [id number] Closed 08/08/2023 08/07/2024 1 1 Reason for Visit * (Routine) - Closed Specialty Diagnoses / Procedures Referred By Contbeata t Referred To Contact Cardiology 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 Procedures Echo (TTE) Vanita Tolbert MD [address] [place] [address] [facility] [address] [place] [phone] Referral ID Status Reason Start Date Expiration Date Visits Re quested Visits Authorized [id number] Closed 08/08/2023 08/07/2024 1 1 Encounter Details Date Type Department Care Team (Latest Contact Info) Description 10/10/2023 10:59 AM CDT - 10/10/2023 11:08 AM CDT Hospital Encounter [facility] [address] [place] [phone] Vanita Lin MD [address] [place] [address] Monochorionic diamniotic twin gestation in [...] [facility] [place] [address] [facility] [address] [place] [phone] Nitin Morris MD [address] [place] [address] 12/19/2023 11:00 AM CDT [facility] Director Card Services [address] [place] [address] 12/19/2023 11:30 AM CDT [facility] Maternal Medicine [place] [address] [place] [phone] Nitin Morris MD [address] [place] [address] 01/02/2024 2:[address] [facility] Maternal Medicine [place] [address] [place] [phone] Tomasa Dickens MD [address] [place] [address] 01/02/2024 2:45 PM CDT Office [facility] Maternal Medicine [place] [address] [place] [phone] Tomasa Dickens MD [address] [place] [address] 01/16/2024 2:15 PM HARDWARE SUPPLIES SALES REPRESENTATIVE [facility]ment [facility] Maternal Medicine [place] [address] [place] [phone] Tomasa Dickens MD [address] [place] [address] 01/16/2024 2:45 PM HARDWARE SUPPLIES SALES REPRESENTATIVE Office 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 Study ID: [id number] ?[facility] ?[facility] ?[address] ?[place] [address] ? Echocardiogram Name: KRISTYN MISHRA Study Date: 10/10/2023 12:34 PM ? Patient Location: [facility] Gender: Female ?Patient Class: Outpatient : [...] to the left atrium. There is laminar gdfcr-bi-mjhc shunting across the foramen ovale. Atrioventricular valves: [...] MD 10/10/2023 03:00 PM Procedure Note Esequiel Greir MD - 10/10/2023 [id number] Study ID:[id number] [facility] [address] [address] Echocardiogram Name: KRISTYN MISHRA Study Date: 10/10/2023 12:34 PM Patient Location: [facility] Gender: Female Patient Class:Outpatient : [id number] Age: 22 yrs Ordering Provider: VANITA LIN Referring Provider: VANITA LIN Performed By: Doris Black Reading Physician: Esequiel Grier MD Reason For Study: Monochorionic diamniotic twin gestation in [facility] Data: Number of fetuses: This is [...] in to the left atrium. There is phodhqjfuidq-af-kosa shunting across the foramen ovale. Atrioventricular valves: [...] trimester documented in this encounter Care Teams Investment Advisor Relationship Specialty Start Date End Date No Ref-Primary, Physician PCP - General 07/22/23 Vanita Lin MD [address] [place] [address] Assigned OBGYN Provider 08/31/23 documented as of this encounter
--- OUTSIDE RECORDS SUMMARY | 2023-12-17 15:49 | XMS_ITS | Encounter Summary ---
Author Organization [place] Address [address] [facility] [place] [address] Care Team Providers Care Motor Express Clerk Name Role Phone No Ref-Primary, Physician Primary Care Provider Mica Aguilar MD Unavailable [phone] Reason for Visit * Reason Comments Ultrasound RL2/UAR/MCA-M/D twin s, Twin A: EFW 12% Encounter Details Date Type Department Care Team (Latest Contact Info) Description 11/07/2023 2:00 PM CDT Office Visit [facility] Maternal Medicine Center [place] [address] [facility] [address] [place] [address] Angelica Wright MD [address] [place] [address] Monochorionic diamniotic twin gestation in [...] 11/07/2023 2:00 PM CDT Patient presents to [facility] for RL2/UAR/MCA at 26w3d due to M/D twins, Twin A: EFW 12%. Positive movement x2. Denies LOF, vaginal bleeding or cramping/contractions. SBAR given to [facility] MD, see their note in Epic. documented in this encounter Plan of Treatment Upcoming Encounters Date Type Department Care Team (Late st Contact Info) Description 12/19/2023 11:00 AM CDT Appointment [facility] Maternal Medicine [place] [address] [place] [phone] Nitin Morris MD [address] [facility] [address] 12/19/2023 11:00 AM CDT Office Visit [facility] [employer] [address] [place] [phone] 12/19/2023 11:30 AM CDT Office Visit [facility] Maternal Medicine [facility] [address] [place] [phone] Nitin Morris MD [address] [facility] [place] [address] 01/02/2024 2:15 PM CDT Appointment [facility] Maternal Medicine [facility] [address] [facility] [address] [place] [phone] Tomasa Dickens MD [address] [place] [address] 01/02/2024 2:45 PM CDT Office Visit [facility] Medicine [place] [address] [facility] [address] [place] [phone] Tomasa Dickens MD [address] [place] [address] 01/16/2024 2:[address] SUPERVISOR Appointment [facility] [place] [address] [phone] Tomasa Dickens MD [address] [place], [place] [address] 01/16/2024 2:[address] SUPERVISOR Office Visit [facility] [place] [address] [phone] Tomasa Dickens MD [address] [place] [address] documented as of this encounter Visit Diagnoses Diagnosis 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- Primary documented in this encounter Care Teams Motor Express Clerk Relationship Specialty Start Date End Date No Ref-Primary, Physician PCP - General 07/22/23 Mica Aguilar MD [address] [place] [address] Assigned OBGYN Provider 08/31/23 documented as of this encounter
--- OUTSIDE RECORDS SUMMARY | 2023-12-17 15:49 | XMS_ITS | Encounter Summary ---
Author Organization [place] Address [facility] [place] [address] Care Team Providers Care Spot Checker Name Role Phone No Ref-Primary, Physician Primary Care Provider Mica Aguilar MD Unavailable [phone] Reason for Referral * Diagnostic Imaging Ultrasound (Routine) - Pending Review Specialty Diagnoses / Procedures Referred By Contbeata t Referred To Contact Radiology. 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 Procedures MFM Twins US Comprehensive F/U MFM Twins US Comprehensive F/U Raya Dickens MD [address] [place] [address] Referral ID Status Reason Start Date Expiration Date V isits Requested Visits Authorized [id number] Pending Review 10/24/2023 10/23/2024 1 1 Reason for Visit * Diagnostic Imaging Ultrasound (Routine) - Pending Review Specialty Diagnoses / Procedures Referred By Contac t Referred To Contact Radiology. 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 Procedures MFM Twins US Comprehensive F/U MFM Twins US Comprehensive F/U Raya Dickens MD [address] [place] [address] Referral ID Status Reason Start Date Expiration Date V isits Requested Visits Authorized [id number] Pending Review 10/24/2023 10/23/2024 1 1 Encounter Details Date Type Department Care Team (Latest Contact Info) Description 11/07/2023 1:01 PM CDT - 11/07/2023 11:59 PM CDT Hospital Encounter [facility] Medicine [facility] [address] [facility] [address] [place] [phone] Angelica Wright MD [address] [place] [address] Monochorionic diamniotic twin gestation in [...] Info) Description 12/19/2023 11:00 AM CDT Appointment [facility] Medicine [facility] [address] [facility] [address] [place] [phone] Nitin Morris MD [address] [place], [place] [address] 12/19/2023 11:00 AM CDT Office Visit [facility] [employer] [facility] [place] [phone] 12/19/2023 11:30 AM CDT Office Visit [facility] Maternal Medicine Center [place] [address] [place] [phone] Nitin Morris MD [address] [place] [address] 01/02/2024 2:15 PM CDT Appointment [facility] Maternal Medicine [place] [address] [place] [phone] Raya Dickens MD [address] [place], [place] [address] 01/02/2024 2:45 PM CDT Office Visit [facility] Maternal Medicine [place] [address] [place] [phone] Raya Dickens MD [address] [place], [place] [address] 01/16/2024 2:15 PM ELECTRICAL EXPERIMENTAL MECHANIC Appointment [facility] Maternal Medicine [place] [address] [place] [phone] Raya Dickens MD [address] [place], [place] [address] 01/16/2024 2:45 PM ELECTRICAL EXPERIMENTAL MECHANIC Office Visit [facility] Maternal Medicine [place] [address] [place] [phone] Raya Dickens MD [address] [address] documented as of this encounter Procedures Procedure [...] ? Study Date: ??11/07/2023 1:25pm Pat. NO: ??[id number] ?Referring ??MD: RAYA SAHH Site: ? Network Coordinator: Sindhu Maurer RDMS : ??2000 ?Age: ?? [...] BPD ? 64.1 ?mm ? 25w 6d ?[facility] ? 84.5 ?mm ? 25w 3d ?Nicolaides [...] ?1 lb 13 ?oz EFW by ?Hadlock ([id number]-FL) EFW discordance ?8.2 ? % Head / Face / Neck Biometry: Welt Drawer ?5.2 ? mm CM ? 4.2 ? [...] lb 15 ? oz EFW by ?Hadlock ([id number]-JE-OW-FL) EFW discordance ?8.2 ? % Head / Face / Neck Biometry: Welt Drawer ?7.7 ? mm CM ? 4.0 ? mm Fetus 1: ANATOMY ----- The following structures appear normal: Head / Neck ? Cranium. Head size. Head shape. Lateral ventricles. Midline falx. Cavum septi pellucidi. Cerebellum. Cisterna magna. Thalami. Face ? Lips. Profile. Nose. Heart / Thorax ?RVOT view. LVOT view. 3-wexngr-csbyctc view. ? Diaphragm. Abdomen ? Stomach. Kidneys. [...] Heart / Thorax ?RVOT view. LVOT view. 3-alcwfs-iacdycv view. ? Diaphragm. Abdomen ? Stomach. Kidneys. [...] the patient (reviewing medical records/tests), in direct fyrn-ws-xavv contact with the patient during her visit with the majority spent counseling and discussing the plan of care and documenting the visit in the electronic medical record. Please see note for details. Procedure Note Angelica Wright MD - 11/07/2023 Comp Follow Up ----- Pat. Name: KYARA MISHRA Study Date: 11/07/2023 1:25pm Pat. NO: [id number] Referring MD: RAYA SHAH Site: Network Coordinator: Sindhu Maurer RDMS : 2000 Age: 23 [...] EFW (lb,oz) 1 lb 13oz EFW by Hadlock(OQU-QC-NE-FL) EFW discordance 8.2% Head / Face / Neck Biometry: Welt Drawer 5.2mm CM 4.2mm Fetus 2: BIOMETRY ----- BPD 63.7mm 25w 5dHadlock OFD 87.1mm 26w 0dNicolaides HC 241.1mm 26w 1dHadlock Cerebellum tr 30.0mm 26w 4dNicolaides AC 226.7mm 27w 0d 61%Hadlock Femur 44.7mm 24w 5dHadlock Weight Calculation: EFW 891g 26%Hadlock EFW (lb,oz) 1 lb 15oz EFW by Hadlock(HXB-QS-PW-FL) EFW discordance 8.2% Head / Face / Neck Biometry: Welt Drawer 7.7mm CM 4.0mm Fetus 1: ANATOMY ----- The following structures appear normal: Head / Neck Cranium. Head size. Head shape.Lateral ventricles. Midline falx. Cavum septi pellucidi. Cerebellum.Cisterna magna. Thalami. Face Lips. Profile. Nose. Heart / Thorax RVOT view. LVOT view. 5-mpnbgj-emrbrkhezon. Diaphragm. Abdomen Stomach. Kidneys. Bladder. Genitals. Spine Cervical spine. Thoracic spine.Lumbar spine. Sacral spine. The following structures were documented previously: Heart / Thorax 4-chamber view. sex: female. Fetus 2: ANATOMY ----- The following structures appear normal: Head / Neck Cranium. Head size. Head shape.Lateral ventricles. Midline falx. Cavum septi pellucidi. Cerebellum.Cisterna magna. Thalami. Face Lips. Nose. Heart / Thorax RVOT view. LVOT view. 8-lgdfho-cjfhomfddyi. Diaphragm. Abdomen Stomach. Kidneys. Bladder. Spine Cervical [...] see the patient (reviewing medical records/tests), in cknsofojfj-lh-isuj contact with the patient during her visit [...] twin anemia polycythemia syndrome. Raya Dickens MD [facility] US ORDERAB LES documented in this encounter Visit Diagnoses Diagnosis 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 documented in this encounter Care Teams Spot Checker Relationship Specialty Start Date End Date No Ref-Primary, Physician PCP - General 07/22/23 Mica Aguilar MD [address] [address] Assigned OBGYN Provider 08/31/23 documented as of this encounter
--- OUTSIDE RECORDS SUMMARY | 2023-12-17 15:49 | XMS_ITS | Encounter Summary ---
Author Organization [place] Address [facility] [place] [address] Care Team Providers Care Rn Paralegal Name Role Phone No Ref-Primary, Physician Primary Care Provider Mica Aguilar MD Unavailable [phone] Reason for Referral * Diagnostic Imaging Ultrasound (Routine) - Pending Review Specialty Diagnoses / Procedures Referred By Contac t Referred To Contact Radiology. 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 Procedures MFM Twins US Comprehensive F/U Mica Aguilar MD [address] [place] [address] Referral ID Status Reason Start Date Expiration Date V isits Requested Visits Authorized [id number] Pending Review 08/08/2023 08/07/2024 1 1 Encounter Details Date Type Department Care Team (Latest Contact Info) Description 09/30/2023 8:45 AM CDT - 09/30/2023 11:59 PM CDT Hospital [facility] [address] [facility] [address] [place] [phone] Mica Aguilar MD [address] [place] [address] Case Berrios MD [address] [place] [address] Monochorionic diamniotic twin gestation in [...] 11:00 AM CDT Appointment [facility] [address] [facility] [address] [place] [phone] Nitin Morris MD [address] [place] [address] 12/19/2023 11:00 AM CDT Office Visit [facility] Nurse Advocate Services [facility] [place] [address] 12/19/2023 11:30 AM CDT Office Visit [facility] Maternal Medicine [place] [address] [place] [phone] Nitin Morris MD [address] [place] [address] 01/02/2024 2:15 PM CDT Appointment [facility] Maternal Medicine [place] [address] [place] [phone] Raya Dickens MD [address] [place] [address] 01/02/2024 2:45 PM CDT Office Visit [facility] Maternal Medicine [place] [address] [place] [phone] Raya Dickens MD [address] [place] [address] 01/16/2024 2:15 PM DIRECTOR INBOUND SALES Appointment [facility] Maternal Medicine [place] [address] [place] [phone] Raya Dickens MD [address] [place] [address] 01/16/2024 2:45 PM DIRECTOR INBOUND SALES Office Visit [facility] Maternal Medicine [place] [address] [place] [phone] Raya Dickens MD [address] [place] [address] documented as of this encounter [...] ? Study Date: ??09/30/2023 9:11am Pat. NO: ??[id number] ?Referring ??MD: RAYA SHAH Site: ? Machine Spreader: Christopher Street RDMS : ??2000 ?Age: ?? [...] MISHRA Study Date: 09/30/2023 9:11am Pat. NO: [id number] Referring MD: RAYA SHAH Site: Machine Spreader: Christopher Street RDMS : 2000 Age: 22 [...] twin anemia polycythemia syndrome. 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
--- OUTSIDE RECORDS SUMMARY | 2023-12-17 15:49 | XMS_ITS | Encounter Summary ---
Author Organization [place] Address [address] [place] [address]. [place] [address] Care Team Providers Care Machinery Rigger Name Role Phone No Ref-Primary, Physician Primary Care Provider Mica Aguilar MD Unavailable [phone] Encounter Details Date Type Department Care Team (Late st Contact Info) Description 10/10/2023 Office Visit [facility] [address] [place] [phone] Esequiel Grier MD [address] [place] [phone] cardiac disease affecting , fetus 1 of [...] Grier MD - 10/10/2023 12:27 PM CDT [facility] Consult Note Patient: Kyara Villegas Date of : 2000 Age: [age] year old Date of Visit: 10/10/2023 PCP: No Ref-Primary, Physician Dear No ref. provider found: I had the pleasure of seeing Kyara Villegas at the [facility] on 10/10/2023 in cardiology consultation for [...] her partner with the assistance of a education administrator. She is aware that the study was [...] care. I spent approximately 20 minutes in buvc-io-ivnx time reviewing the above considerations. Esequiel Grier M.D. Pediatric Cardiology [address], 5th floor, [facility] [address] documented in this encounter Plan of Treatment Upcoming Encounters Date Type Department Care Team (Late st Contact Info) Description 12/19/2023 11:00 AM CDT Appointment [facility] Maternal Medicine [place] [address] [facility] [address] [place] [phone] Nitin Morris MD [address] [place] [address] 12/19/2023 11:00 AM CDT Office Visit [facility] Welder [employer] [facility] [address] [place] [phone] 12/19/2023 11:30 AM CDT Office Visit [facility] Maternal Medicine [place] [address] [facility] [address] [place] [phone] Nitin Morris MD [address] [place] [address] 01/02/2024 2:15 PM CDT Appointment [facility] Maternal Medicine [place] [address] [facility] [address] [place] [phone] Tomasa Dickens MD [address] [place] [address] 01/02/2024 2:45 PM CDT Office Visit [facility] Maternal Medicine [place] [address] [facility] [address] [place] [phone] Tomasa Dickens MD [address] [place], [place] [address] 01/16/2024 2:15 PM GROMMET MAN Appointment [facility] Medicine [place] [address] [facility] [address] [place] [phone] Tomasa Dickens MD [address] [place], [place] [address] 01/16/2024 2:45 PM GROMMET MAN Office Visit [facility] [place] [address] [facility] [address] [place] [address] Tomasa Dickens MD [address] [place], [place] [address] documented as of this encounter Visit Diagnoses Diagnosis cardiac disease affecting , fetus 1 of multiple gestation- Primary cardiac disease affecting , fetus 2 of multiple gestation documented in this encounter Care Teams Machinery Rigger Relationship Specialty Start Date End Date No Ref-Primary, Physician PCP - General 07/22/23 Mica Aguilar MD [address] [place], [place] [phone] Assigned OBGYN Provider 08/31/23 documented as of this encounter
--- OUTSIDE RECORDS SUMMARY | 2023-12-17 15:49 | XMS_ITS | Encounter Summary ---
Author Organization [place] Address [address] [place] [address]. [place] [address] Care Team Providers Care Filters Assembler Name Role Phone No Ref-Primary, Physician Primary Care Provider Mica Aguilar MD Unavailable [phone] Reason for Referral * Diagnostic Imaging Ultrasound (Routine) - Pending Review Specialty Diagnoses / Procedures Referred By Contac t Referred To Contact Radiology. 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 Procedures MFM Twins Analisa F/U Case Berrios MD [address] [place] [address] Referral ID Status Reason Start Date Expiration Date V isits Requested Visits Authorized [id number] Pending Review 09/30/2023 09/29/2024 1 1 Reason for Visit * Diagnostic Imaging Ultrasound (Routine) - Pending Review Specialty Diagnoses / Procedures Referred By Contac t Referred To Contact Radiology. 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 Procedures MFM Twins Analisa F/U Case Berrios MD [address] [place] [address] Referral ID Status Reason Start Date Expiration Date V isits Requested Visits Authorized [id number] Pending Review 09/30/2023 09/29/2024 1 1 Encounter Details Date Type Department Care Team (Latest Contact Info) Description 10/24/2023 2:10 PM CDT - 10/24/2023 11:59 PM CDT Hospital Encounter [facility] Medicine [facility] [address] [facility] [address] [place] [phone] Angelica Wright MD [address] [place] [address] Monochorionic diamniotic twin gestation in [...] Info) Description 12/19/2023 11:00 AM CDT Appointment [facility] Medicine [facility] [address] [facility] [address] [place] [phone] Nitin Morris MD [address] [place], [place] [address] 12/19/2023 11:00 AM CDT Office Visit [facility] Environmental Technician Services [address] [place] [phone] 12/19/2023 11:30 AM CDT Office Visit [facility] Maternal Medicine [place] [address] [facility] [address] [place] [phone] Nitin Morris MD [address] [place] [address] 01/02/2024 2:15 PM CDT Appointment [facility] Maternal Medicine [place] [address] [facility] [address] [place] [phone] Raya Dickens MD [address] [place] [address] 01/02/2024 2:45 PM CDT Office Visit [facility] Maternal Medicine [place] [address] [facility] [address] [place] [phone] Raya Dickens MD [address] [place] [address] 01/16/2024 2:15 PM JOURNEYMAN PRESS OPERATOR Appointment [facility] Maternal Medicine [place] [address] [facility] [address] [place] [phone] Raya Dickens MD [address] [place] [address] 01/16/2024 2:45 PM JOURNEYMAN PRESS OPERATOR Office Visit [facility] Maternal Medicine [place] [address] [facility] [address] [place] [phone] Raya Dickens MD [address] [place], [place] [address] documented as of this encounter Procedures Procedure [...] Name: MARSHALL VILLEGASKRISTYN MARX ? Study Date: ??10/24/2023 2:10pm Pat. NO: ??[id number] ?Referring ??MD: RAYA SHAH Site: ? Corporate Learning Consultant: Sindhu Maurer RDMS : ??2000 ?Age: ?? [...] ?1 lb 5 ?oz EFW by ?Hadlock (GXH-ZI-HP-FL) EFW discordance ?10.4 ?% Head / Face / Neck Biometry: Cabbage Salter ?6.1 ? mm CM ? 6.2 ? mm Fetus 2: BIOMETRY ----- BPD ? 55.7 ?mm ? 23w 0d ?Hadmontana SANTACRUZ ? 78.1 ?mm ? 23w 5d ?Nicolaides HC ? 215.2 ?mm ? 23w 4d ? Hadlock Cerebellum tr ?27.6 ?mm ? 24w 6d ? Nicolaides AC ? 200.6 ?mm ? 24w 5d ?50% ?Hadlock Femur ?42.9 ?mm ? 24w 0d ? Hadlock Weight Calculation: EFW ?677 ? g ? 33% ?Hadlock EFW (lb,oz) ?1 lb 8 ?oz EFW by ?Hadlock (MJL-NT-CE-FL) EFW discordance ?10.4 ?% Head / Face / Neck Biometry: Cabbage Salter ?8.4 ? mm CM ? 6.3 ? mm Fetus 1: ANATOMY ----- The following structures appear normal: Head / Neck ? Cranium. Head size. Head shape. Lateral ventricles. Midline falx. Cavum septi pellucidi. Cerebellum. Cisterna magna. Thalami. Face ? Lips. Profile. Nose. Heart / Thorax ?4-chamber view. RVOT view. LVOT view. 5-lruftm-qshyipv view. ? Diaphragm. Abdomen ? Stomach. Kidneys. [...] ? Lips. Profile. Nose. Heart / Thorax ?6-uoynjg-sdtkzat view. sex: female. Fetus 1: DOPPLER ----- [...] be present but not detected Procedure Note Raay Dickens MD - 10/24/2023 Comp Follow Up ----- Pat. Name: KRISTYN MISHRA Study Date: 10/24/2023 2:10pm Pat. NO: [id number] Referring MD: RAYA SHAH Site: Corporate Learning Consultant: Sindhu Maurer RDMS : 2000 Age: 23 [...] Assigned dating based on ultrasound (GA), selected 10/08/2023 24w + 3 d 02/10/2024 Fetus 1: [...] EFW (lb,oz) 1 lb 5oz EFW by Hadlock(DUK-CK-LL-FL) EFW discordance 10.4% Head / Face / Neck Biometry: Cabbage Salter 6.1mm CM 6.2mm Fetus 2: BIOMETRY ----- BPD 55.7mm 23w 0dHadlock OFD 78.1mm 23w 5dNicolaides HC 215.2mm 23w 4dHadlock Cerebellum tr 27.6mm 24w 6dNicolaides AC 200.6mm 24w 5d 50%Hadlock Femur 42.9mm 24w 0dHadlock Weight Calculation: EFW 677g 33%Hadlock EFW (lb,oz) 1 lb 8oz EFW by Hadlock(KIG-LL-LD-FL) EFW discordance 10.4% Head / Face / Neck Biometry: Cabbage Salter 8.4mm CM 6.3mm Fetus 1: ANATOMY ----- The following structures appear normal: Head / Neck Cranium. Head size. Head shape.Lateral ventricles. Midline falx. Cavum septi pellucidi. Cerebellum.Cisterna magna. Thalami. Face Lips. Profile. Nose. Heart / Thorax 4-chamber view. RVOT view. LVOT view.3-pybiqc-abcaxdw view. Diaphragm. Abdomen Stomach. Kidneys. Bladder. The [...] Face Lips. Profile. Nose. Heart / Thorax 1-itlaox-ncpbddc view. sex: female. Fetus 1: DOPPLER ----- [...] twin anemia polycythemia syndrome. Case Berrios MD [facility] US ORDERABL ES documented in this encounter Visit Diagnoses Diagnosis 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 documented in this encounter Care Teams Filters Assembler Relationship Specialty Start Date End Date No Ref-Primary, Physician PCP - General 07/22/23 Mica Aguilar MD [address] [address] Assigned OBGYN Provider 08/31/23 documented as of this encounter
--- OUTSIDE RECORDS SUMMARY | 2023-12-17 15:49 | XMS_ITS | Encounter Summary ---
Author Organization [place] Address [address] [facility] [place] [address] Care Team Providers Care Ring Barker Operator Name Role Phone No Ref-Primary, Physician Primary Care Provider Mica Aguilar MD Unavailable [phone] Encounter Details Date Type Department Care [...] Info) Description 12/19/2023 11:00 AM CDT Appointment [facility] Maternal Medicine [facility] [place] [address] [place] [address] Nitin Morris MD [address] [place] [address] 12/19/2023 11:00 AM CDT Office Visit [facility] Special Population Paraprofessional Services [facility] [place] [address] 12/19/2023 11:30 AM CDT Office Visit [facility] Maternal Medicine [place] [address] [facility] [address] [place] [phone] Nitin Morris MD [address] [place] [address] 01/02/2024 2:15 PM CDT Appointment [facility] Maternal Medicine [place] [address] [facility] [address] [place] [phone] Tomasa Dickens MD [address] [place] [address] 01/02/2024 2:45 PM CDT Office Visit [facility] Maternal Medicine [place] [address] [facility] [address] [place] [phone] Tomasa Dickens MD [address] [place], [place] [address] 01/16/2024 2:15 PM AUTOMOBILE INSURANCE CLAIM EXAMINER Appointment [facility] Maternal Medicine [place] [address] [facility] [address] [place] [phone] Tomasa Dickens MD [address] [place] [address] 01/16/2024 2:45 PM AUTOMOBILE INSURANCE CLAIM EXAMINER Office Visit [facility] Maternal Medicine [place] [address] [facility] [address] [place] [phone] Tomasa Dickens MD [address] [place], [place] [address] documented as of this encounter Visit Diagnoses Not on filedocumented in this encounter Care Teams Ring Barker Operator Relationship Specialty Start Date End Date No Ref-Primary, Physician PCP - General 07/22/23 Mica Aguilar MD [address] [place] [address] Assigned OBGYN Provider 08/31/23 documented as of this encounter
--- OUTSIDE RECORDS SUMMARY | 2023-12-17 15:49 | XMS_ITS | Encounter Summary ---
Author Organization [place] Address [address] [facility] [place] [address] Care Team Providers Care Operations General Agent Name Role Phone No Ref-Primary, Physician Primary Care Provider Mica Aguilar MD Unavailable [phone] Reason for Referral * Diagnostic Imaging Ultrasound (Routine) - Pending Review Specialty Diagnoses / Procedures Referred By Contac t Referred To Contact Radiology. 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 Procedures MFM Twins US Comprehensive F/U Case Berrios MD [address] [place] [address] Referral ID Status Reason Start Date Expiration Date V isits Requested Visits Authorized [id number] Pending Review 09/30/2023 09/29/2024 1 1 Reason for Visit * Reason Comments Ultrasound RL2/UAR/MCA-TTTS marivel ck-mono/di twins Encounter Details Date Type Department Care Team (Latest Contact Info) Description 09/30/2023 9:15 AM CDT Office Visit [facility] Maternal Medicine Center [place] [address] [facility] [address] [place] [phone] Mica Aguilar MD [address] [place], [place] [address] Case Berrios MD [address] [place] [address] Monochorionic diamniotic twin gestation in [...] for details of today's [facility] at [facility]. Case Berrios MD Maternal- Medicine documented in this encounter Nursing Notes * Eboni [place] RN - 09/30/2023 9:15 AM CDT historical interpreter used for [facility] visit via IPAD ID#[id number] documented in this encounter Plan of Treatment Upcoming Encounters Date Type Department Care Team (Late st Contact Info) Description 12/19/2023 11:00 AM CDT Appointment [facility] M[facility] [place] [address] [place] [address] Nitin Morris MD [address] [place], [place] [address] 12/19/2023 11:00 AM CDT Office Visit [facility] [employer] Supervisor Services [address] [place] [phone] 12/19/2023 11:30 AM CDT Office Visit [facility] Maternal Medicine [place] [address] [facility] [address] [place] [phone] Nitin Morris MD [address] [place] [address] 01/02/2024 2:15 PM CDT Appointment [facility] Maternal Medicine [place] [address] [facility] [address] [place] [phone] Raya Dickens MD [address] [place] [address] 01/02/2024 2:45 PM CDT Office Visit [facility] Maternal Medicine [place] [address] [facility] [address] [place] [phone] Raya Dickens MD [address] [place], [place] [address] 01/16/2024 2:15 PM FURNACE CONVERTER Appointment [facility] Maternal Medicine [place] [address] [facility] [address] [place] [phone] Raya Dikcens MD [address] [place] [address] 01/16/2024 2:45 PM FURNACE CONVERTER Office Visit [facility] Maternal Medicine [place] [address] [facility] [address] [place] [phone] Raya Dickens MD [address] [place], [place] [address] documented as of this encounter Results * [...] ? Study Date: ??10/24/2023 2:10pm Pat. NO: ??[id number] ?Referring ??MD: RAYA SHAH Site: ? Commissioning Editor: Sindhu Maurer RDNJ : ??2000 ?Age: ?? 23 ----- INDICATION [...] ?1 lb 5 ?oz EFW by ?Hadlock (TNB-KR-WJ-FL) EFW discordance ?10.4 ?% Head / Face / Neck Biometry: Data Warehouse Specialist ?6.1 ? mm CM ? 6.2 ? [...] ?1 lb 8 ?oz EFW by ?Hadlock (UYK-HR-AB-FL) EFW discordance ?10.4 ?% Head / Face / Neck Biometry: Data Warehouse Specialist ?8.4 ? mm CM ? 6.3 ? mm Fetus 1: ANATOMY ----- The following structures appear normal: Head / Neck ? Cranium. Head size. Head shape. Lateral ventricles. Midline falx. Cavum septi pellucidi. Cerebellum. Cisterna magna. Thalami. Face ? Lips. Profile. Nose. Heart / Thorax ?4-chamber view. RVOT view. LVOT view. 6-jsaygi-lbmhlws view. ? Diaphragm. Abdomen ? Stomach. Kidneys. [...] ? Lips. Profile. Nose. Heart / Thorax ?8-yhpocd-bvqrghq view. sex: female. Fetus 1: DOPPLER ----- [...] MISHRA Study Date: 10/24/2023 2:10pm Pat. NO: [id number] Referring MD: RAYA SHAH Site: Commissioning Editor: Sindhu Maurer RDMS : 2000 Age: 23 [...] EFW (lb,oz) 1 lb 5oz EFW by Hadlock(QMO-QK-QE-FL) EFW discordance 10.4% Head / Face / Neck Biometry: Data Warehouse Specialist 6.1mm CM 6.2mm Fetus 2: BIOMETRY ----- BPD 55.7mm 23w 0dHadlock OFD 78.1mm 23w 5dNicolaides HC 215.2mm 23w 4dHadlock Cerebellum tr 27.6mm 24w 6dNicolaides AC 200.6mm 24w 5d 50%Hadlock Femur 42.9mm 24w 0dHadlock Weight Calculation: EFW 677g 33%Hadlock EFW (lb,oz) 1 lb 8oz EFW by Hadlock(ZRU-LC-NP-FL) EFW discordance 10.4% Head / Face / Neck Biometry: Data Warehouse Specialist 8.4mm CM 6.3mm Fetus 1: ANATOMY ----- The following structures appear normal: Head / Neck Cranium. Head size. Head shape.Lateral ventricles. Midline falx. Cavum septi pellucidi. Cerebellum.Cisterna magna. Thalami. Face Lips. Profile. Nose. Heart / Thorax 4-chamber view. RVOT view. LVOT view.0-qxpesy-zmzkqcz view. Diaphragm. Abdomen Stomach. Kidneys. Bladder. The [...] Face Lips. Profile. Nose. Heart / Thorax 2-kjcrkz-mcjgsvm view. sex: female. Fetus 1: DOPPLER ----- [...] anemia polycythemia syndrome. Case Berrios MD [facility] US ORDERABL ES documented in this encounter Visit Diagnoses Diagnosis 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- Primary 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 documented in this encounter Care Teams Operations General Agent Relationship Specialty Start Date End Date No Ref-Primary, Physician PCP - General 07/22/23 Mica Aguilar MD [address] [place], [place] [address] [address] [address] Assigned OBGYN Provider 08/31/23 documented as of this encounter
--- OUTSIDE RECORDS SUMMARY | 2023-12-17 15:49 | XMS_ITS | Encounter Summary ---
Author Organization [place] Address [address] [facility] [place] [address] Care Team Providers Care Transportation Security Officer Name Role Phone No Ref-Primary, Physician Primary Care Provider Mica Aguilar MD Unavailable [phone] Encounter Details Date Type Department Care [...] Info) Description 12/19/2023 11:00 AM CDT Appointment [facility] Maternal Medicine Center [place] [address] [place] [address] Nitin Morris MD [address] [place] [address] 12/19/2023 11:00 AM CDT Office Visit [facility] Bucket Chucker Services [facility] [place] [address] 12/19/2023 11:30 AM CDT Office Visit [facility] Maternal Medicine [place] [address] [facility] [address] [place] [phone] Nitin Morris MD [address] [place] [address] 01/02/2024 2:15 PM CDT Appointment [facility] Maternal Medicine [place] [address] [facility] [address] [place] [phone] Tomasa Dickens MD [address] [place] [address] 01/02/2024 2:45 PM CDT Office Visit [facility] Maternal Medicine [place] [address] [facility] [address] [place] [phone] Tomasa Dickens MD [address] [place], [place] [address] 01/16/2024 2:15 PM ANALOG DESIGN ENGINEER Appointment [facility] Maternal Medicine [place] [address] [facility] [address] [place] [phone] Tomasa Dickens MD [address] [place] [address] 01/16/2024 2:45 PM ANALOG DESIGN ENGINEER Office Visit [facility] Maternal Medicine [place] [address] [facility] [address] [place] [phone] Tomasa Dickens MD [address] [place], [place] [address] documented as of this encounter Visit Diagnoses Not on filedocumented in this encounter Care Teams Transportation Security Officer Relationship Specialty Start Date End Date No Ref-Primary, Physician PCP - General 07/22/23 Mica Aguilar MD [address] [place] [address] Assigned OBGYN Provider 08/31/23 documented as of this encounter
--- OUTSIDE RECORDS SUMMARY | 2023-12-17 15:49 | XMS_ITS | Encounter Summary ---
Author Organization [place] Address [address] [place] [address]. [place] [address] Care Team Providers Care Transportation Maintenance Specialist Name Role Phone No Ref-Primary, Physician Primary Care Provider Vanita Lin MD Unavailable [phone] Reason for Referral * (Routine) - Closed Specialty Diagnoses / Procedures Referred By Contac t Referred To Contact Cardiology 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 Procedures Echo (TTE) Complete Vanita Lin MD [address] [place] [address] [facility] [address] [place] [phone] Referral ID Status Reason Start Date Expiration Date Visits Re quested Visits Authorized [id number] Closed 08/08/2023 08/07/2024 1 1 Reason for Visit * (Routine) - Closed Specialty Diagnoses / Procedures Referred By Contbeata t Referred To Contact Cardiology 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 Procedures Echo (TTE) Vanita Tolbert MD [address] [place] [address] [facility] [address] [place] [phone] Referral ID Status Reason Start Date Expiration Date Visits Re quested Visits Authorized [id number] Closed 08/08/2023 08/07/2024 1 1 Encounter Details Date Type Department Care Team (Latest Contact Info) Description 10/10/2023 11:09 AM CDT - 10/10/2023 11:59 PM CDT Hospital Encounter [facility] [address] [place] [phone] Vanita Lin MD [address] [place] [address] Saray Coker Monochorionic diamniotic twin [...] Info) Description 12/19/2023 11:00 AM CDT Appointment [facility] M[facility] Medicine [facility] [place] [address] [facility] [address] [place] [address] Nitin Morris MD [address] [place] [address] 12/19/2023 11:00 AM CDT Office Visit [facility] Inspector Multifocal Lens Services [facility] [place] [address] 12/19/2023 11:30 AM CDT Office Visit [facility] Maternal Medicine [place] [address] [place] [phone] Nitin Morris MD [address] [place] [address] 01/02/2024 2:15 PM CDT Appointment [facility] Maternal Medicine [place] [address] [place] [phone] Tomasa Dickens MD [address] [place] [address] 01/02/2024 2:45 PM CDT Office Visit [facility] Maternal Medicine [place] [address] [place] [phone] Tomasa Dickens MD [address] [place] [address] 01/16/2024 2:15 PM JEWELER APPRENTICE Appointment [facility] Maternal Medicine [place] [address] [place] [phone] Tomasa Dickens MD [address] [place] [address] 01/16/2024 2:45 PM JEWELER APPRENTICE Office Visit [facility] Maternal Medicine [place] [address] [place] [phone] Tomasa Dickens MD [address] [place] [address] documented as of this encounter Procedures Procedure Name Priority Date/Time Associated Diagnosis Comments ECHO - TWIN B COMPLETE Routine 10/10/2023 1:35 PM CDT Monochorionic diamniotic twin gestation in first trimester documented in this encounter Results * ECHO - TWIN B COMPLETE (10/10/2023 1:35 PM CDT) Anatomical Region Laterality Modality Echocardiography 10/10/2023 12:0 8 PM CDT Narrative 10/10/2023 2:59 PM CDT [id number]^RILEY^VANITA ? Study ID: [id number] ?[facility] ?[facility] ?[address] ?[place] [address] ? Echocardiogram Name: KRISTYN MISHRA Study Date: 10/10/2023 12:08 PM ? Patient Location: [facility] Gender: Female ?Patient Class: Outpatient [...] to the left atrium. There is laminar pbwzw-bj-elcp shunting across the foramen ovale. Atrioventricular valves: [...] Procedure Note Esequiel Grier MD - 10/10/2023 [id number]^MANUEL Study ID:[id number] [facility] [address] [address] Echocardiogram Name: KRISTYN MISHRA Study Date: 10/10/2023 12:08 PM Patient Location: [facility] Gender: Female Patient Class:Outpatient : [id number] Age: 22 yrs Ordering Provider: VANITA LIN Referring Provider: VANITA LIN Performed By: Doris Black Physician: Esequiel Grier MD Reason For Study: Monochorionic diamniotic twin gestation in [facility] Data: Number of fetuses: This is [...] in to the left atrium. There is mebtkdkmjbil-ik-kust shunting across the foramen ovale. Atrioventricular valves: [...] documented in this encounter Care Teams Transportation Maintenance Specialist Relationship Specialty Start Date End Date No Ref-Primary, Physician PCP - General 07/22/23 Vanita Lin MD [address] [place] [address] Assigned OBGYN Provider 08/31/23 documented as of this encounter
--- OUTSIDE RECORDS SUMMARY | 2023-12-17 15:49 | XMS_ITS | Encounter Summary ---
Author Organization [place] Address [address] [facility] [place] [address] Care Team Providers Care Craft Coordinator Name Role Phone No Ref-Primary, Physician Primary Care Provider Mica Aguilar MD Unavailable [phone] Encounter Details Date Type Department Care [...] Info) Description 12/19/2023 11:00 AM CDT Appointment [facility] Maternal Medicine Center [place] [address] [place] [address] Nitin Morris MD [address] [place] [address] 12/19/2023 11:00 AM CDT Office Visit [facility] Drilling Inspector Services Critical access hospital0 [place] [address] 12/19/2023 11:30 AM CDT Office Visit [facility] Maternal Medicine [place] [address] [facility] [address] [place] [phone] Nitin Morris MD [address] [place] [address] 01/02/2024 2:15 PM CDT Appointment [facility] Maternal Medicine [place] [address] [facility] [address] [place] [phone] Tomasa Dickens MD [address] [place] [address] 01/02/2024 2:45 PM CDT Office Visit [facility] Maternal Medicine [place] [address] [facility] [address] [place] [phone] Tomasa Dickens MD [address] [place], [place] [address] 01/16/2024 2:15 PM COMPUTER NETWORK SPECIALIST Appointment [facility] Maternal Medicine [place] [address] [facility] [address] [place] [phone] Tomasa Dickens MD [address] [place] [address] 01/16/2024 2:45 PM COMPUTER NETWORK SPECIALIST Office Visit [facility] Maternal Medicine [place] [address] [facility] [address] [place] [phone] Tomasa Dickens MD [address] [place], [place] [address] documented as of this encounter Visit Diagnoses Not on filedocumented in this encounter Care Teams Craft Coordinator Relationship Specialty Start Date End Date No Ref-Primary, Physician PCP - General 07/22/23 Mica Aguilar MD [address] [place] [address] Assigned OBGYN Provider 08/31/23 documented as of this encounter
--- OUTSIDE RECORDS SUMMARY | 2023-12-17 15:49 | XMS_ITS | Encounter Summary ---
Author Organization [place] Address [facility] [place] [address] Care Team Providers Care Flight Nurse Name Role Phone No Ref-Primary, Physician Primary Care Provider Mica Aguilar MD Unavailable [phone] Reason for Referral * Diagnostic Imaging Ultrasound (Routine) - Pending Review Specialty Diagnoses / Procedures Referred By Contac t Referred To Contact Radiology. 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 Procedures MFM Twins Comprehensive F/U Mica Aguilar MD [address] [place] [address] Referral ID Status Reason Start Date Expiration Date V isits Requested Visits Authorized [id number] Pending Review 08/08/2023 08/07/2024 1 1 Reason for Visit * Diagnostic Imaging Ultrasound (Routine) - Pending Review Specialty Diagnoses / Procedures Referred By Contac t Referred To Contact Radiology. 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 Procedures MFM Twins US Comprehensive F/U Mica Aguilar MD [address] [place] [address] Referral ID Status Reason Start Date Expiration Date V isits Requested Visits Authorized [id number] Pending Review 08/08/2023 08/07/2024 1 1 Encounter Details Date Type Department Care Team (Latest Contact Info) Description 10/08/2023 11:26 AM CDT - 10/08/2023 11:59 PM CDT Hospital Encounter [facility] Medicine [facility] [address] [facility] [address] [place] [phone] Mica Aguilar MD [address] [place] [address] Case Berrios MD [address] [place] [address] Monochorionic diamniotic twin gestation in [...] Info) Description 12/19/2023 11:00 AM CDT Appointment [facility] Medicine [facility] [address] [facility] [address] [place] [phone] Nitin Morris MD [address] [place] [address] 12/19/2023 11:00 AM CDT Office Visit [facility] Senior Research Analyst Services [facility] [place] [address] 12/19/2023 11:30 AM CDT Office Visit [facility] Maternal Medicine [place] [address] [place] [phone] Nitin Morris MD [address] [place] [address] 01/02/2024 2:[address] [facility] Maternal Medicine [place] [address] [place] [phone] Raya Dickens MD [address] [place] [address] 01/02/2024 2:45 PM CDT Office Visit [facility] Maternal Medicine [place] [address] [place] [phone] Raya Dickens MD [address] [place] [address] 01/16/2024 2:15 PM ELECTRICAL PRODUCTS ENGINEER Appointment [facility] Maternal Medicine [place] [address] [place] [phone] Raya Dickens MD [address] [place] [address] 01/16/2024 2:45 PM ELECTRICAL PRODUCTS ENGINEER Office Visit [facility] Maternal Medicine [place] [address] [place] [phone] Raya Dickens MD [address] [place] [address] documented as of this encounter [...] ? Study Date: ??10/08/2023 11:35am Pat. NO: ??[id number] ?Referring ??MD: RAYA SHAH Site: ? E Commerce Marketing Analyst: Linda Lock [facility] : ??2000 ?Age: ?? 22 ----- [...] patient is scheduled to return to [facility] in 2 weeks for MCDA twin [...] MISHRA Study Date: 10/08/2023 11:35am Pat. NO: [id number] Referring MD: RAYA SHAH Site: E [employer] Marketing Analyst: Linda Lock RDMS : 2000 Age: 22 ----- INDICATION ----- Monochorionic, Diamniotic Twin gestation. Mild poly Twin A. Elevated Dopplers on both twins. METHOD ----- Transabdominal ultrasound examination. View: Sufficient. ----- Twin . Number of fetuses: 2. Monochorionic-diamniotic DATING ----- DateDetailsGest. age FENRANDO LMP 04/29/2023ycle: irregular cycle23 w + 1 [...] patient is scheduled to return to [facility] in 2 weeks for MCDA twinsurveillance. [...] anemia polycythemia syndrome. Mica Aguilar MD IMG MFM US ORDERABLE S documented in this encounter Visit Diagnoses Diagnosis Monochorionic diamniotic twin gestation in first trimester documented in this encounter Care Teams Flight Nurse Relationship Specialty Start Date End Date No Ref-Primary, Physician PCP - General 07/22/23 Mica Aguilar MD [address] [address] Assigned OBGYN Provider 08/31/23 documented as of this encounter
--- OUTSIDE RECORDS SUMMARY | 2023-12-17 15:49 | XMS_ITS | Encounter Summary ---
Author Organization [place] Address [facility] [place] [address] Care Team Providers Care Resp Ther Name Role Phone No Ref-Primary, Physician Primary Care Provider Mica Aguilar MD Unavailable [phone] Reason for Referral * Diagnostic Imaging Ultrasound (Routine) - Pending Review Specialty Diagnoses / Procedures Referred By Contac t Referred To Contact Radiology. 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 Procedures MFM Twins US Comprehensive F/U MFM Twins US Comprehensive F/U Raya Dickens MD [address] [place] [address] Referral ID Status Reason Start Date Expiration Date V isits Requested Visits Authorized [id number] Pending Review 10/24/2023 10/23/2024 1 1 * Diagnostic Imaging Ultrasound (Routine) - Pending Review Specialty Diagnoses / Procedures Referred By Contac t Referred To Contact Radiology. 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 Procedures MFM Twins US Comprehensive F/U MFM Twins US Comprehensive F/U Raya Dickens MD [address] [place] [address] Referral ID Status Reason Start Date Expiration Date V isits Requested Visits Authorized [id number] Pending Review 10/24/2023 10/23/2024 1 1 * Diagnostic Imaging Ultrasound (Routine) - Pending Review Specialty Diagnoses / Procedures Referred By Contac t Referred To Contact Radiology. 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 Procedures MFM Twins US Comprehensive F/U Raya Dickens MD [address] [place] [address] Referral ID Status Reason Start Date Expiration Date V isits Requested Visits Authorized [id number] Pending Review 10/24/2023 10/23/2024 1 1 * Diagnostic Imaging Ultrasound (Routine) - Pending Review Specialty Diagnoses / Procedures Referred By Contac t Referred To Contact Radiology. 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 Procedures MFM Twins US Comprehensive F/U Raya Dickens MD [address] [place] [address] Referral ID Status Reason Start Date Expiration Date V isits Requested Visits Authorized [id number] Pending Review 10/24/2023 10/23/2024 1 1 * Diagnostic Imaging Ultrasound (Routine) - Pending Review Specialty Diagnoses / Procedures Referred By Contac t Referred To Contact Radiology. 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 Procedures MFM Twins US Comprehensive F/U Raya Dickens MD [address] [place] [address] Referral ID Status Reason Start Date Expiration Date V isits Requested Visits Authorized [id number] Pending Review 10/24/2023 10/23/2024 1 1 * Diagnostic Imaging Ultrasound (Routine) - Pending Review Specialty Diagnoses / Procedures Referred By Tami peoples Referred To Contact Radiology. 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 Procedures MFM Twins US Comprehensive F/U Raya Dickens MD [address] [place] [address] Referral ID Status Reason Start Date Expiration Date V isits Requested Visits Authorized [id number] Pending Review 10/24/2023 10/23/2024 1 1 Reason for Visit * Reason Comments Ultrasound RL2/UAR/MCA-M/D twin s Encounter Details Date Type Department Care Team (Latest Contact Info) Description 10/24/2023 2:45 PM CDT Office Visit [facility] Maternal Medicine [facility] [address] [facility] [address] [place] [address] Angelica Wright MD [address] [place] [address] Raya Dickens MD [address] [place] [address] Monochorionic diamniotic twin gestation in [...] 10/24/2023 2:45 PM CDT Patient presents to [facility] for RL2/UAR/MCA at 24w3d due to M/D twins. Positive movement x2. Denies LOF, vaginal bleeding or cramping/contractions. SBAR given to [facility] MD, see their note in Epic. documented in this encounter Plan of Treatment Upcoming Encounters Date Type Department Care Team (Late st Contact Info) Description 12/19/2023 11:00 AM CDT Appointment [facility] [place] [address] [facility] [address] [place] [phone] Nitin Morris MD [address] [place] [address] 12/19/2023 11:00 AM CDT Office Visit [facility] Warehouse Handler Services [address] [place] [phone] 12/19/2023 11:30 AM CDT Office Visit [facility] [place] [address] [facility] [address] [place] [phone] Nitin Morris MD [address] [place] [address] 01/02/2024 2:15 PM CDT Appointment [facility]aternal [facility] [address] [facility] [address] [place] [phone] Raya Dickens MD [address] [place] [address] 01/02/2024 2:45 PM CDT Office Visit [facility] Maternal Medicine [facility] [address] [place] [address] Raya Dickens MD [address] [place] [address] 01/16/2024 2:15 PM BISCUIT MACHINE OPERATOR Appointment [facility] [place] [address] [facility] [address] [place] [phone] Raya Dickens MD [address] [place] [address] 01/16/2024 2:45 PM BISCUIT MACHINE OPERATOR Office Visit [facility]aternal Medicine [facility] [address] [place] [phone] Raya Dickens MD [address] [place], [place] [address] Scheduled Orders Name Type Priority Associated Diagnoses Orde r Schedule MFM Twins US Comprehensive F/U Imaging Routine Monochorionic diamniotic twin gestation in second trimester Expected: 12/19/2023 (Approximate), Expires: 08/23/2024 MFM Twins US Comprehensive [...] polycythemia syndrome. Narrative 12/05/2023 2:46 PM CDT ?[facility] ----- Pat. Name: KYARA ALVAREZ ? Study Date: ??12/05/2023 2:09pm Pat. NO: ??[id number] ?Referring ??MD: RAYA SHAH Site: ? Ultr[employer] Seaming Machine Operator: Linda Lock RDMS : ??2000 ?Age: ?? [...] record, and communicating with other health healthcare interpreter and/or care coordination. Procedure Note Didi Daniel MD - 12/05/2023 Surveillance ----- Pat. Name: MARSHALL VILLEGASKYARA MARX Study Date: 12/05/2023 2:09pm Pat. NO: [id number] Referring MD: RAYA SHAH Site: [employer] Se[employer] Machine Operator: Linda Lock RDMS : 2000 Age: 23 [...] medical record, andcommunicating with other health healthcare interpreter and/or carecoordination. IMPRESSION ----- Monochorionic diamniotic twin [...] anemia polycythemia syndrome. Raya Dickens MD Obdulio [facility] US ORDERAB LES * [facility] Twins US Comprehensive F/U (11/21/2023 11:19 AM [...] ? Study Date: ??11/21/2023 9:59am Pat. NO: ??[id number] ?Referring ??MD: RAYA SHAH Site: ? Ultrason[employer] Seaming Machine Operator: Christopher Street RDMS : ??2000 ?Age: [...] BPD ? 70.2 ?mm ? 28w 1d ?[facility] ? 92.0 ?mm ? 27w 2d ?Nicolaides HC ? 258.7 ?mm ? 28w 1d ? Hadlock AC ? 233.9 ?mm ? 27w 5d ?22% ?Hadlock Femur ?49.3 ?mm ? 26w 4d ? Hadlock Humerus ? 45.3 ? mm ?26w 6d ?Celestina Weight Calculation: EFW ?1,071 ?g ? 11% ?Hadlock EFW (lb,oz) ?2 lb 6 ?oz EFW by ?Hadlock (RLS-LT-UZ-FL) EFW discordance ?9.2 ? % Head / Face / Neck Biometry: Blood Coordinator ?5.5 ? mm Fetus 2: BIOMETRY ----- [...] ?2 lb 10 ?oz EFW by ?Hadlock (YSH-RG-LU-FL) EFW discordance ?9.2 ? % Fetus 1: [...] record, and communicating with other health healthcare interpreter and/or care coordination. Procedure Note Nitin Morris MD - 11/21/2023 Comp Follow Up ----- Pat. Name: KYARA ALVAREZ Study Date: 11/21/2023 9:59am Pat. NO: [id number] Referring MD: RAYA SHAH Site: Ultr[employer] Seaming Machine Operator: Christopher Street RDMS : 2000 Age: 23 [...] EFW (lb,oz) 2 lb 6oz EFW by Hadlock(NOR-ER-MR-FL) EFW discordance 9.2% Head / Face / Neck Biometry: Blood Coordinator 5.5mm Fetus 2: BIOMETRY ----- BPD 69.9mm 28w 1dHadlock OFD 94.3mm 27w 6dNicolaides HC 263.3mm 28w 5dHadlock AC 247.1mm 29w 0d 59%Hadlock Femur 49.7mm 26w 5dHadlock Humerus 45.2mm 26w 6dJeanty Weight Calculation: EFW 1,180g 27%Hadlock EFW (lb,oz) 2 lb 10oz EFW by Hadlock(XHV-GP-DH-FL) EFW discordance 9.2% Fetus 1: ANATOMY ----- [...] medical record, andcommunicating with other health healthcare interpreter and/or carecoordination. IMPRESSION ----- Monochorionic diamniotic twin [...] twin anemia polycythemia syndrome. Raya Dickens MD [facility] US ORDERAB LES * [facility] Twins US Comprehensive F/U (11/07/2023 2:29 PM [...] ?Comp Follow Up ----- Pat. Name: MARSHALL VILLEGAS KYARA ? Study Date: ??11/07/2023 1:25pm Pat. NO: ??[id number] ?Referring ??MD: RAYA SHAH Site: ? Ultrasonic Seaming Machine Operator: Sindhu Maurer RDMS : ??2000 ?Age: ?? [...] BPD ? 64.1 ?mm ? 25w 6d ?Hadmontana OFD ? 84.5 ?mm ? 25w 3d [...] ?1 lb 13 ?oz EFW by ?Hadlock (LZI-KX-AU-FL) EFW discordance ?8.2 ? % Head / Face / Neck Biometry: Blood Coordinator ?5.2 ? mm CM ? 4.2 ? [...] lb 15 ? oz EFW by ?Hadlock (HIS-HY-MR-FL) EFW discordance ?8.2 ? % Head / Face / Neck Biometry: Blood Coordinator ?7.7 ? mm CM ? 4.0 ? mm Fetus 1: ANATOMY ----- The following structures appear normal: Head / Neck ? Cranium. Head size. Head shape. Lateral ventricles. Midline falx. Cavum septi pellucidi. Cerebellum. Cisterna magna. Thalami. Face ? Lips. Profile. Nose. Heart / Thorax ?RVOT view. LVOT view. 9-pwhwpx-hcoaeny view. ? Diaphragm. Abdomen ? Stomach. Kidneys. [...] Heart / Thorax ?RVOT view. LVOT view. 0-eicgsf-dqwfboy view. ? Diaphragm. Abdomen ? Stomach. Kidneys. [...] the patient (reviewing medical records/tests), in direct jfla-rk-tmeo contact with the patient during her visit with the majority spent counseling and discussing the plan of care and documenting the visit in the electronic medical record. Please see note for details. Procedure Note Angelica Wright MD - 11/07/2023 Comp Follow Up ----- Pat. Name: KYARA ALVAREZ Study Date: 11/07/2023 1:25pm Pat. NO: [id number] Referring MD: RAYA SHAH Site: Ultr[employer] Seaming Machine Operator: Sindhu Maurer RDMS : 2000 Age: [...] EFW (lb,oz) 1 lb 13oz EFW by Hadlock(KZA-YQ-NY-FL) EFW discordance 8.2% Head / Face / Neck Biometry: Blood Coordinator 5.2mm CM 4.2mm Fetus 2: BIOMETRY ----- BPD 63.7mm 25w 5dHadlock OFD 87.1mm 26w 0dNicolaides HC 241.1mm 26w 1dHadlock Cerebellum tr 30.0mm 26w 4dNicolaides AC 226.7mm 27w 0d 61%Hadlock Femur 44.7mm 24w 5dHadlock Weight Calculation: EFW 891g 26%Hadlock EFW (lb,oz) 1 lb 15oz EFW by Hadlock(UYW-ZY-OT-FL) EFW discordance 8.2% Head / Face / Neck Biometry: Blood Coordinator 7.7mm CM 4.0mm Fetus 1: ANATOMY ----- The following structures appear normal: Head / Neck Cranium. Head size. Head shape.Lateral ventricles. Midline falx. Cavum septi pellucidi. Cerebellum.Cisterna magna. Thalami. Face Lips. Profile. Nose. Heart / Thorax RVOT view. LVOT view. 2-iqmcvv-awmeqrwexst. Diaphragm. Abdomen Stomach. Kidneys. Bladder. Genitals. Spine Cervical spine. Thoracic spine.Lumbar spine. Sacral spine. The following structures were documented previously: Heart / Thorax 4-chamber view. sex: female. Fetus 2: ANATOMY ----- The following structures appear normal: Head / Neck Cranium. Head size. Head shape.Lateral ventricles. Midline falx. Cavum septi pellucidi. Cerebellum.Cisterna magna. Thalami. Face Lips. Nose. Heart / Thorax RVOT view. LVOT view. 0-ojxlna-kfzddmevloz. Diaphragm. Abdomen Stomach. Kidneys. Bladder. Spine Cervical [...] see the patient (reviewing medical records/tests), in mfefugrjdt-pw-koci contact with the patient during her visit [...] twin anemia polycythemia syndrome. Raya Dickens MD [facility] US ORDERAB LES documented in this encounter Visit Diagnoses Diagnosis Monochorionic diamniotic twin gestation in second trimester- Primary Monochorionic diamniotic twin gestation in second trimester Monochorionic diamniotic twin gestation in second trimester Monochorionic diamniotic twin gestation in second trimester documented in this encounter Care Teams Resp Ther Relationship Specialty Start Date End Date No Ref-Primary, Physician PCP - General 07/22/23 Mica Aguilar MD [address] [place] [address] Assigned OBGYN Provider 08/31/23 documented as of this encounter
--- OUTSIDE RECORDS SUMMARY | 2023-12-17 15:50 | XMS_ITS | Encounter Summary ---
Author Organization [place] Address [address] [place] [address] Care Team Providers Care Critical Care Cns Name Role Phone No Ref-Primary, Physician Primary Care Provider Mica Aguilar MD Unavailable [phone] Reason for Visit * Reason Comments cerclage * Auth/Cert (Routine) Specialty Diagnoses / Procedures Referred By Contac t Referred To Contact geospatial technologist Diagnoses Maternity*FERNANDO: 02/10/24*Childress/Di Twins Cervical shortening affecting in second trimester [address] [place] [address] Referral ID Status Reason Start Date Expiration Date Visits Re quested Visits Authorized [id number] 1 1 Encounter Details Date Type Department Care Team (Latest Contact Info) Description 09/26/2023 4:43 PM CDT - 09/28/2023 12:22 PM CDT Hospital Encounter [facility] [address] [place] [address] Heidi Swain MD [address] [facility] [address] [place] [address] Cervical shortening affecting in second [...] Swain MD - 09/28/2023 9:30 AM CDT [facility] Discharge Summary Kyara Villegas Age: [age] year old Date of : 2000 Date of Admission: 09/26/2023 Date of Discharge: 09/28/23 Admitting Physician: Heidi Swain MD Discharge Physician: Heidi Swain MD Admission Diagnosis: - Childress/di twin intrauterine at 20w3d - Cervical insufficiency by US and exam Discharge Diagnosis: - Childress/di twin intrauterine at 20w5d - Cervical insufficiency [...] your medicines These medications were sent to [place], [place] - [address], [facility] [address] acetaminophen 325 MG tablet Brief History of Presentation: Kyara Villegas is a 22 year old at 20w3d who presents for admission prior to planned exam indicated cerclage placement tomorrow (09/26). This is a mono/di twin . Pt was seen by [facility] today and found to have a shortened cervix to 8.2 mm on transvaginal ultrasound.A digital exam was performed and patient was found to be 1 cm dilated. Exam indicated cerclage was recommended and pt transferred to [facility] for further evaluation prior to planned procedure [...] unwell feeling Follow up: Follow up in [facility] clinic scheduled appointment this coming week [...] tablet by mouth daily Reyna Stern MD Family Services Manager Resident, PGY-3 09/28/2023 9:35 AM Physician Attestation [...] puede myron comenzado el trabajo de parto. [place] significa que bravo tenido al menos 6 [...] encontrar m??s informaci??n en ingl??s? Vaya a https://spanishkb.healthTradesparq.net/patientedes Escriba N531 en la b??squeda para aprender m??s acerca de Aprenda cu??ndo llamar a tian m??dico raúl el embarazo (despu??s de 20 semanas). Revisado: 2022 Versi??n del contenido: 14.0 ?? [employer]. Las instrucciones de cuidado fueron adaptadas [...] Fetus B: FHR 140s Reyna Stern MD Family Services Manager Resident, PGY-3 09/28/2023 11:54 AM * Heidi [...] agreement with the plan. Reyna Stern MD Family Services Manager Resident, PGY-3 09/28/2023 9:14 AM Physician Attestation I saw and evaluated this patient prior to discharge. I discussed the patient with the resident/fellow and agree with plan of care as documented in the note. I personally reviewed vital signs, labs, imaging, and discussed the following plan with the patient, with the assistance of a public address announcer via iPad. . I personally spent 15 [...] Fetus 2: 135 bpm via bedside ultrasound [place]: No contractions overnight A/P: 22 year old [...] and Physical September 26, 2023 Kyara Villegas [id number] HPI Kyara Villegas is a 22 year [...] cerclage was recommended and pt transferred to [facility] for further evaluation prior to planned procedure [...] physiologic discharge without blood on collected swabs [place]: quiet x20 min, plan to continue x2h [...] Abnormality Status --------- ------ Adult Type and Screen[[id number]] In process Please view results for these [...] Abnormality Status --------- ------ Extra Serum Separator Tu...[[id number]] In process Extra Green Top ([place]...[[id number]] In process Please view results for these tests on the individual orders. Imaging [facility] US 09/26/2023 Monochorionic diamniotic twin gestation [...] of Dr. Heidi Swain. Raven Sauer MD STONEMASON SUPERVISOR PGY-3 09/26/2023 6:38 PM Physician Attestation I [...] instructions reviewed with patient and with ipad seed production field supervisor and patient states no questions. She is [...] pain that relieved with heat back Tylenol, [place] was quite. Patient tolerated food. Plan is [...] Attending: Heidi Swain MD Fellow: Socorro Danielson [facility] Fellow PGY5 Resident: Anthony Jones MS3 [...] shortened cervix noted yesterday (09/25) at our [facility] clinic during her first comprehensive anatomy [...] Kyara Villegas Primary Care Provider:Heidi Diane Primary Clinic:[facility] Gestational Age: 20w3d Kyara Tiago Villegas [...] Info) Description 12/19/2023 11:00 AM CDT Appointment [facility] [place] [address] [facility] [address] [place] [phone] Nitin Morris MD [address] [place] [address] 12/19/2023 11:00 AM CDT Office Visit [facility] Community Relations Assistant Services [address] [place] [phone] 12/19/2023 11:30 AM CDT Office Visit [facility] [place] [address] [facility] [address] [place] [phone] Nitin Morris MD [address] [place] [address] 01/02/2024 2:15 PM CDT Appointment [facility] Medicine [place] [address] [facility] [address] [place] [phone] Tomasa Dickens MD [address] [place] [address] 01/02/2024 2:45 PM CDT Office Visit [facility] [place] [address] [facility] [address] [place] [phone] Tomasa Dickens MD [address] [place] [address] 01/16/2024 2:15 PM PRINCIPAL SCIENTIST Appointment [facility] [place] [address] [facility] [address] [place] [phone] Tomasa Dickens MD [address] [place], [place] [address] 01/16/2024 2:45 PM PRINCIPAL SCIENTIST Office Visit [facility] [place] [address] [facility] [address] [place] [phone] Tomasa Dickens MD [address] [place] [address] documented as of this encounter Procedures Procedure [...] - MICRO GENERAL ORDERABLES [facility] IDD LABORATORY [facility] Inf. Diseases Diag. Lab [address] [facility], [address] [place] [phone] * (ABNORMAL) UA with Microscopic (09/26/2023 [...] 09/26/2023 6:37 PM CDT UR LABORATORY Specific Ellis Urine 1.018 1.003 - 1.035 09/26/2023 6:37 [...] MD LAB - URINE ORDERABLES UR LABORATORY [facility] Acute Care Lab [address] [facility], [address] [place] [address], [facility] * Chlamydia trachomatis PCR (09/26/2023 5:50 PM CDT) Chlamydia trachomatis Negative Negative 09/27/2023 11:37 AM CDT [facility] LABORATORY Comment:A negative result by fixed wing pilot mediated amplification does not preclude the presence of C. trachomatis infection because results are dependent on proper and adequate collection, absence of inhibitors and sufficient rRNA to be detected. Swab VAGINAL STRUCTURE / Unknown Non-blood Collection / Unknown 09/26/2023 5:50 PM CDT 09/26/2023 6:03 PM CDT Socorro Danielson MD LAB - MICRO GENERAL ORDERABLES [facility] IDD LABORATORY [facility] Inf. Diseases Diag. Lab [address] [facility], [address] [place] [address], [facility] * Neisseria gonorrhoea PCR (09/26/2023 5:50 PM CDT) Neisseria gonorrhoeae Negative Negative 09/27/2023 11:37 AM CDT [facility] Comment:Negative for N. gono rrhoeae rRNA by fixed wing pilot mediated amplification. A negative result by fixed wing pilot mediated amplification does not preclude the presence of C. trachomatis infection because results are dependent on proper and adequate collection, absence of inhibitors and sufficient rRNA to be detected. Swab VAGINAL STRUCTURE / Unknown Non-blood Collection / Unknown 09/26/2023 5:50 PM CDT 09/26/2023 6:03 PM CDT Socorro Danielson MD LAB - MICRO GENERAL ORDERABLES [facility]ORAT[facility] Inf. Diseases Diag. Lab [address] [facility], [address] [place] [address], [facility] * (ABNORMAL) Wet prep (09/26/2023 5:50 PM [...] LAB - MICRO GENERAL ORDERABLES UR LABORATORY [facility] Acute Care Lab [address] [facility] [place] [address], [facility] * Extra Green Top ([place] Heparin) Tube (09/26/2023 5:15 PM CDT) Hold Specimen JIC 09/26/2023 6:32 PM CDT UR LABORATORY Blood STRUCTURE OF RIGHT UPPER LIMB / Unknown Venipuncture / Unknown 09/26/2023 5:15 PM CDT 09/26/2023 5:25 PM CDT Heidi Swain MD LAB - BLOOD ORDERA BLES UR LABORATORY [facility] Acute Care Lab [address] [place] [address], Room [place] [id number] * Extra Serum Separator Tube (SST) (09/26/2023 5:15 PM CDT) Hold Specimen JIC 09/26/2023 6:32 PM CDT UR LABORATORY Blood STRUCTURE OF RIGHT UPPER LIMB / Unknown Venipuncture / Unknown 09/26/2023 5:15 PM CDT 09/26/2023 5:24 PM CDT Heidi Swain MD LAB - BLOOD ORDERA BLES Performing Organization Address City/[facility]/ZIP Co de Phone Number UR LABORATORY [facility] Acute Care Lab [address] [place] [address], Room [address] * Adult Type and Screen (09/26/2023 5:15 PM CDT) ABO/RH(D) A POS 09/26/2023 4:59 PM CDT UR BLOOD BANK Antibody Screen Negative Negative 09/26/2023 4:59 PM CDT UR BLOOD BANK SPECIMEN EXPIRATION DATE [id number] 09/26/2023 4:59 PM CDT UR BLOOD BANK Blood STRUCTURE OF RIGHT UPPER LIMB / Unknown Venipuncture / Unknown 09/26/2023 5:15 PM CDT 09/26/2023 5:20 PM CDT Socorro Danielson MD LAB - BLOOD BANK TEST ORDER UR BLOOD BANK [facility] Blood Components Lab [address] [place] [address], Room [address] [phone], [place] * (ABNORMAL) CBC with platelets (09/26/2023 [...] MD LAB - BLOOD ORDERABLES UR LABORATORY [facility] Acute Care Lab [address] [facility], [address] [place] [address] documented in this encounter Visit Diagnoses [...] postprocedure, Antepartum 0946 ($Given - Provider: Rodger Granados, FLAKITA) lactated ringers BOLUS 250 mL Intravenous, 250 [...] Pre-procedure documented in this encounter Care Teams Critical Care Cns Relationship Specialty Start Date End Date No Ref-Primary, Physician PCP - General 07/22/23 Mica Aguilar MD [address] [facility] [address] [place] [address] Assigned OBGYN Provider 08/31/23 documented as of this encounter
--- OUTSIDE RECORDS SUMMARY | 2023-12-17 15:50 | XMS_ITS | Encounter Summary ---
Author Organization [place] Address [address] [place] [address]. [place] [address] Care Team Providers Care Beverage Sales Consultant Name Role Phone No Ref-Primary, Physician Primary Care Provider Mica Aguilar MD Unavailable [phone] Reason for Referral * Diagnostic Imaging Ultrasound (Routine) - Pending Review Specialty Diagnoses / Procedures Referred By Contac t Referred To Contact Radiology. 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 Procedures MFM Twins Mica Jain MD [address] [place] [address] Referral ID Status Reason Start Date Expiration Date V isits Requested Visits Authorized [id number] Pending Review 08/08/2023 08/07/2024 1 1 Reason for Visit * Diagnostic Imaging Ultrasound (Routine) - Pending Review Specialty Diagnoses / Procedures Referred By Contac t Referred To Contact Radiology. 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 Procedures MFM Twins Mica Jain MD [address] [place] [address] Referral ID Status Reason Start Date Expiration Date V isits Requested Visits Authorized [id number] Pending Review 08/08/2023 08/07/2024 1 1 Encounter Details Date Type Department Care Team (Latest Contact Info) Description 09/26/2023 1:22 PM CDT - 09/26/2023 4:42 PM CDT Hospital Encounter [facility] Maternal Medicine [facility] [address] [place] [phone] Mica Aguilar MD [address] [place] [address] Angelica Wright MD [address] [place] [address] Monochorionic diamniotic twin gestation in [...] CDT Appointment [facility] Maternal [facility] [address] [place] [phone] Nitin Morris MD [address] [place] [address] 12/19/2023 11:00 AM CDT Office Visit [facility] [address] [place] [address] 12/19/2023 11:30 AM CDT Office Visit [facility] Maternal Medicine [place] [address] [place] [phone] Nitin Morris MD [address] [place] [address] 01/02/2024 2:15 PM CDT Appointment [facility] Maternal Medicine [place] [address] [place] [phone] Raya Dickens MD [address] [place] [address] 01/02/2024 2:45 PM CDT Office Visit [facility] Maternal Medicine [place] [address] [place] [phone] Raya Dickens MD [address] [place], [place] [address] 01/16/2024 2:15 PM NUCLEAR ENGINEERING TECHNICIAN Appointment [facility] Maternal Medicine [place] [address] [place] [phone] Raya Dickens MD [address] [place] [address] 01/16/2024 2:45 PM NUCLEAR ENGINEERING TECHNICIAN Office Visit [facility] Maternal Medicine [place] [address] [place] [phone] Raya Dickens MD [address] [place], [place] [address] documented as of this encounter Procedures Procedure [...] CDT ?Comprehensive ----- Pat. Name: ROLANDO VILLEGAS KRISTYN ? Study Date: ??09/26/2023 1:31pm Pat. NO: ??[id number] ?Referring ??MD: RAYA SHAH Site: ? Film Recordist: [address] Street RDMS : ??2000 ?Age: ?? [...] lb 11 ? oz EFW by ?Hadlock (BCM-AL-AM-FL) EFW discordance ?13.8 ?% Head / Face / Neck Biometry: Collating Machine Operator ?5.3 ? mm CM ? [...] lb 13 ? oz EFW by ?Hadlock ([id number]-FL) EFW discordance ?13.8 ?% Head / Face / Neck Biometry: Collating Machine Operator ?6.9 ? mm CM ? [...] view. RVOT view. LVOT view. 3-vessel view. 9-dfefds-ikpgurq view. Situs. Aortic arch view. Bicaval view. [...] view. RVOT view. LVOT view. 3-vessel view. 3-rfjqvw-erekulv view. Situs. Aortic arch view. Bicaval view. [...] the patient (reviewing medical records/tests), in direct auwz-lb-awfa contact with the patient during her visit with the majority spent counseling and discussing the plan of care and documenting the visit in the electronic medical record. Please see note for details. Procedure Note Angelica Wright MD - 10/08/2023 Comprehensive ----- Pat. Name: KRISTYN MISHRA Study Date: 09/26/2023 1:31pm Pat. NO: [id number] Referring MD: RAYA SHAH Site: Film Recordist: Christopher Street RDMS : 2000 Age: 22 [...] EFW (lb,oz) 0 lb 11oz EFW by Hadlock(UJK-JN-LI-FL) EFW discordance 13.8% Head / Face / Neck Biometry: Collating Machine Operator 5.3mm CM 2.4mm Nasal bone 5.9mm Fetus 2: BIOMETRY ----- BPD 46.2mm 20w 0dHadlock OFD 62.0mm 20w 0dNicolaides HC 172.9mm 19w 6dHadlock Cerebellum tr 19.7mm 18w 6dNicolaides Nuchal fold 4.4mm AC 155.0mm 20w 5d 52%Hadlock Femur 34.9mm 21w 0dHadlock Humerus 30.9mm 20w 2dJeanty Weight Calculation: EFW 371g 59%Hadlock EFW (lb,oz) 0 lb 13oz EFW by Hadlock(TAP-[id number]-FL) EFW discordance 13.8% Head / Face / Neck Biometry: Collating Machine Operator 6.9mm CM 4.3mm Nasal bone 5.8mm Fetus 1: ANATOMY ----- The following structures appear normal: Head / Neck Cranium. Head size. Head shape.Lateral ventricles. Choroid plexus. Midline falx. Cavum septi pellucidi.Cerebellum. Cisterna magna. Parenchyma. Thalami. Vermis. Neck. Nuchal fold. Face Lips. Profile. Nose. Maxilla.Mandible. Orbits. Lens. Heart / Thorax 4-chamber view. RVOT view. LVOT view.3-vessel view. 8-dvyeqt-gfpskdh view. Situs. Aortic arch view. Bicavalview. Ductal [...] 4-chamber view. RVOT view. LVOT view.3-vessel view. 5-ltrxvi-wjvdhkb view. Situs. Aortic arch view. Bicavalview. Ductal [...] Artery: normal. Sampling site: midcord PI 1.4785% Kunla HR 151bpm Mid Cerebral Artery: normal PS [...] see the patient (reviewing medical records/tests), in gutqcmygtp-yo-tzfd contact with the patient during her visit [...] trimester documented in this encounter Care Teams Beverage Sales Consultant Relationship Specialty Start Date End Date No Ref-Primary, Physician PCP - General 07/22/23 Mica Aguilar MD [address] [address] Assigned OBGYN Provider 08/31/23 documented as of this encounter
--- OUTSIDE RECORDS SUMMARY | 2023-12-17 15:50 | XMS_ITS | Encounter Summary ---
Author Organization [place] Address [address] [facility] [place] [address] Care Team Providers Care Supervisor Propellant Charge Loading Name Role Phone No Ref-Primary, Physician Primary Care Provider Mica Aguilar MD Unavailable [phone] Reason for Visit * Reason Comments cerclage * Auth/Cert (Routine) Specialty Diagnoses / Procedures Referred By Contac t Referred To Contact director camp Diagnoses Maternity*FERNANDO: 02/10/24*Hughes/Di Twins Cervical shortening affecting in second trimester Ur 4cob [address] [place] [address] Referral ID Status Reason Start Date Expiration Date Visits Re quested Visits Authorized [id number] 1 1 Encounter Details Date Type Department Care Team (Late st Contact Info) Description 09/27/2023 9:00 AM CDT - 09/27/2023 10:15 AM CDT Surgery [facility] [address] [place] [address] Heidi Swain MD [address] [facility] [address] [place] [address] Cerclage cervical Surgery Details Date/Time [...] Swain MD - 09/28/2023 9:30 AM CDT [facility] Discharge Summary Kyara Villegas Age: [age] year old Date of : 2000 Date of Admission: 09/26/2023 Date of Discharge: 09/28/23 Admitting Physician: Heidi Swain MD Discharge Physician: Heidi Swain MD Admission Diagnosis: - Hughes/di twin intrauterine at 20w3d - Cervical insufficiency by US and exam Discharge Diagnosis: - Hughes/di twin intrauterine at 20w5d - Cervical insufficiency [...] your medicines These medications were sent to [facility] [address] [place] [address], [facility] [address] acetaminophen 325 MG tablet Brief History of [...] cerclage was recommended and pt transferred to [facility] for further evaluation prior to planned [...] unwell feeling Follow up: Follow up in [facility] clinic scheduled appointment this coming [...] tablet by mouth daily Reyna Stern MD Control Systems Engineer Resident, PGY-3 09/28/2023 9:35 AM Physician Attestation [...] puede myron comenzado el trabajo de parto. [place]ax significa que bravo tenido al menos 6 [...] simone, 2023 Versi??n del contenido: 14.0 ?? [employer]. Las instrucciones de cuidado fueron adaptadas bajo licencia por tian profesional de atenci??n m??dica. Si usted tiene preguntas sobre gilles afecci??n m??dica o sobre estas instrucciones, siempre preguntea tian profesional de kel. [employer] niega toda garant??a o responsabilidad por tian [...] Fetus B: FHR 140s Reyna Stern MD Control Systems Engineer Resident, PGY-3 09/28/2023 11:54 AM * Heidi [...] agreement with the plan. Reyna Stern MD Control Systems Engineer Resident, PGY-3 09/28/2023 9:14 AM Physician Attestation I saw and evaluated this patient prior to discharge. I discussed the patient with the resident/fellow and agree with plan of care as documented in the note. I personally reviewed vital signs, labs, imaging, and discussed the following plan with the patient, with the assistance of a oil field rig builder via iPad. . I personally spent 15 [...] Fetus 2: 135 bpm via bedside ultrasound [place]: No contractions overnight A/P: 22 year old [...] and Physical September 26, 2023 Kyara Villegas [id number] HPI Kyara Villegas is a 22 year [...] cerclage was recommended and pt transferred to [facility] for further evaluation prior to planned [...] physiologic discharge without blood on collected swabs [place]: quiet x20 min, plan to continue x2h [...] Abnormality Status --------- ------ Adult Type and Screen[[id number]] In process Please view results for these [...] Abnormality Status --------- ------ Extra Serum Separator Tu...[[id number]] In process Extra Green Top (Biehle...[[id number]] In process Please view results for these tests on the individual orders. Imaging [facility] US 09/26/2023 Monochorionic diamniotic twin [...] of Dr. Heidi Swain. Raven Sauer MD DOCUMENT CONTROL ASSOCIATE PGY-3 09/26/2023 6:38 PM Physician Attestation I [...] instructions reviewed with patient and with ipad senior operations analyst and patient states no questions. She is [...] pain that relieved with heat back Tylenol, [place] was quite. Patient tolerated food. Plan is [...] shortened cervix noted yesterday (09/25) at our [facility] clinic during her first comprehensive anatomy ultrasound measuring 8 mm. Subsequent pelvic examination revealed a visually dilated cervix at 1 cm and digital examination revealing cervix to be 1/50 and soft in consistency. She was recommended to go th [facility] for further evaluation. After counseling regarding [...] Kyara Villegas Primary Care Provider:Heidi Diane Primary Clinic:[facility] Gestational Age: 20w3d Kyara Villegas presents for [...] Appointment [facility] Maternal Medicine [place] [address] [place] [phone] Nitin Morris MD [address] [place] [address] 12/19/2023 11:00 AM CDT Office Visit [facility] [address] [place] [phone] 12/19/2023 11:30 AM CDT Office Visit [facility] Maternal Medicine [place] [address] [place] [phone] Nitin Morris MD [address] [place] [address] 01/02/2024 2:15 PM CDT Appointment [facility] Maternal Medicine [place] [address] [facility] [address] [place] [phone] Tomasa Dickens MD [address] [place], [place] [address] 01/02/2024 2:45 PM CDT Office Visit [facility] Maternal Medicine [facility] [address] [place] [phone] Tomasa Dickens MD [address] [place] [address] 01/16/2024 2:15 PM ACCOUNTING DIRECTOR Appointment [facility] Maternal Medicine [facility] [address] [place] [phone] Tomasa Dickens MD [address] [place], [place] [address] 01/16/2024 2:45 PM ACCOUNTING DIRECTOR Office Visit [facility] Maternal Medicine [facility] [address] [place] [phone] Tomsaa Dickens MD [address] [place], [place] [address] documented as of this encounter Procedures Procedure [...] - MICRO GENERAL ORDERABLES [facility] Inf. Diseases Diag. Lab [address] [facility] [place] [place], [address] [place] [address] * (ABNORMAL) UA with Microscopic (09/26/2023 5:51 [...] 09/26/2023 6:37 PM CDT UR LABORATORY Specific [place] Urine 1.018 1.003 - 1.035 09/26/2023 6:37 [...] [address] [facility], [address] [place] [address] * Chlamydia trachomatis PCR (09/26/2023 5:50 PM CDT) Chlamydia trachomatis Negative Negative 09/27/2023 11:37 AM CDT [facility] Comment:A negative result by architectural sales consultant mediated amplification does not preclude the presence of C. trachomatis infection because results are dependent on proper and adequate collection, absence of inhibitors and sufficient rRNA to be detected. Swab VAGINAL STRUCTURE / Unknown Non-blood Collection / Unknown 09/26/2023 5:50 PM CDT 09/26/2023 6:03 PM CDT Socorro Danielson MD LAB - MICRO GENERAL ORDERABLES [facility] Inf. Diseases Diag. Lab [address] [facility] [place], [address] [place], [place] [address] * Neisseria gonorrhoea PCR (09/26/2023 5:50 PM CDT) Neisseria gonorrhoeae Negative Negative 09/27/2023 11:37 AM CDT [facility] Comment:Negative for N. gono rrhoeae rRNA by architectural sales consultant mediated amplification. A negative result by architectural sales consultant mediated amplification does not preclude the presence of C. trachomatis infection because results are dependent on proper and adequate collection, absence of inhibitors and sufficient rRNA to be detected. Swab VAGINAL STRUCTURE / Unknown Non-blood Collection / Unknown 09/26/2023 5:50 PM CDT 09/26/2023 6:03 PM CDT Socorro Danielson MD LAB - MICRO GENERAL ORDERABLES [facility] Inf. Diseases Diag. Lab [address] [facility] [place], Room [place] [phone] * (ABNORMAL) Wet prep (09/26/2023 5:50 PM CDT) Pathologist [facility] [place] Trichomonas Absent Absent XIOMARA 09/26/2023 6:28 PM [...] LAB - MICRO GENERAL ORDERABLES UR LABORATORY [facility] Acute Care Lab [address] [facility], [address] [place] [address] * Extra Green Top (Biehle Heparin) Tube (09/26/2023 5:15 PM CDT) Hold Specimen [facility] 09/26/2023 6:32 PM CDT UR LABORATORY Blood STRUCTURE OF RIGHT UPPER LIMB / Unknown Venipuncture / Unknown 09/26/2023 5:15 PM CDT 09/26/2023 5:25 PM CDT Heidi Swain MD LAB - BLOOD ORDERA BLES UR LABORATORY [facility] Acute Care Lab [address] [place] [address], [address] * Extra Serum Separator Tube (SST) (09/26/2023 5:15 PM CDT) Hold Specimen [facility] 09/26/2023 6:32 PM CDT UR LABORATORY Blood STRUCTURE OF RIGHT UPPER LIMB / Unknown Venipuncture / Unknown 09/26/2023 5:15 PM CDT 09/26/2023 5:24 PM CDT Heidi Swain MD LAB - BLOOD ORDERA BLES Performing Organization Address City/[facility] Co de Phone Number UR LABORATORY [facility] [address] [place] [address], [address] * Adult Type and Screen (09/26/2023 5:15 PM CDT) ABO/RH(D) A POS 09/26/2023 4:59 PM CDT UR BLOOD BANK Antibody Screen Negative Negative 09/26/2023 4:59 PM CDT UR BLOOD BANK SPECIMEN EXPIRATION DATE [id number] 09/26/2023 4:59 PM CDT UR BLOOD BANK Blood STRUCTURE OF RIGHT UPPER LIMB / Unknown Venipuncture / Unknown 09/26/2023 5:15 PM CDT 09/26/2023 5:20 PM CDT Socorro Danielson MD LAB - BLOOD BANK TEST ORDER UR BLOOD BANK [facility] [place] [facility] [address] [facility], [address] [place] [address], [facility] * (ABNORMAL) CBC with platelets [...] MD LAB - BLOOD ORDERABLES UR LABORATORY [facility] Acute Care Lab [address] [facility], [address] [place] [address] documented in this encounter Visit Diagnoses Not [...] Crooks RN) 0130 ($Given - Provider: Fadi Crooks, FLAKITA)0830 (Not Given - Provider: Beverly Yadav RN [...] Granados, FLAKITA)0826 (Restarted - Provider: Ngozi Granados, FLAKITA) lactated ringers infusion at 100 mL/hr, Intravenous, CONTINUOUS, Pre-procedure, Starting on 09/27/23 at 0830, Until 09/28/23 at 1423 0912 ($New Bag - Provider: Chapo Ruthreford MD)0940 (Anesthesia Volume Adjustment - Provider: Chapo [...] Pre-procedure documented in this encounter Care Teams Supervisor Propellant Charge Loading Relationship Specialty Start Date End Date No Ref-Primary, Physician PCP - General 07/22/23 Mica Aguilar MD [address] [facility] [address] [place] [address] Assigned OBGYN Provider 08/31/23 documented as of this encounter
--- OUTSIDE RECORDS SUMMARY | 2023-12-17 15:50 | XMS_ITS | Encounter Summary ---
Author Organization [place] Address [address] [place] [address]. [place] [address] Care Team Providers Care Cement Mason Apprentice Name Role Phone No Ref-Primary, Physician Primary Care Provider Mica Aguilar MD Unavailable [phone] Reason for Visit * Auth/Cert (Routine) Specialty Diagnoses / Procedures Referred By Contac t Referred To Contact finish off operator Diagnoses Maternity*FERNANDO: 02/10/24*[place]/Di Twins Cervical shortening affecting in second trimester Ur 4cob [address] [place] [address] Referral ID Status Reason Start Date Expiration Date Visits Re quested Visits Authorized [id number] 1 1 Encounter Details Date Type Department Care Team (Late st Contact Info) Description 09/27/2023 9:12 AM CDT Anesthesia Event [facility] [address] [place] [address] Agustina Dinh MD [address] [facility] [address] [place] [address] Chapo Rutherford MD [address] [place] [address] Anesthesia Record Procedure Summary Procedure [...] Medication Administration Time: 09/27/2023 9:20 AM FOR [facility] ([facility]) ONLY: Pain Team Contact information: please page the Pain Team Via Idea2.Search Pain. During daytime hours, please page the [...] and realistic alternatives discussed. Questions answered and patient/policy services representative(s) expressed understanding. - Discussed: - Discussed with: Patient, Corset Fitter Postoperative Care Pain management: Multi-modal analgesia. PONV [...] Info) Description 12/19/2023 11:00 AM CDT Appointment [facility] Maternal Medicine [place] [address] [place] [phone] Nitin Morris MD [address] [place], [place] [address] 12/19/2023 11:00 AM CDT Office Visit [facility] Services [address] [place] [phone] 12/19/2023 11:30 AM CDT Office Visit [facility] Maternal [facility] [place] [address] [place] [phone] Nitin Morris MD [address] [place] [address] 01/02/2024 2:15 PM CDT Appointment [facility] [place] [address] [place] [phone] Tomasa Dickens MD [address] [place], [place] [address] 01/02/2024 2:45 PM CDT Office Visit [facility]aternal [facility] [place] [address] [place] [phone] Tomasa Dickens MD [address] [place], [place] [address] 01/16/2024 2:15 PM FURNITURE DECALS INSPECTOR Appointment [facility] Medicine [facility] [address] [facility] [address] [place] [phone] Tomasa Dickens MD [address] [place], [place] [phone] 01/16/2024 2:45 PM FURNITURE DECALS INSPECTOR Office Visit [facility] Medicine [facility] [address] [facility] [address] [place] [address] Tomasa Dickens MD [address] [facility] [address] [place], [place] [phone] documented as of this encounter Procedures Procedure [...] Medication Administration Time: 09/27/2023 9:20 AM FOR [facility] ([facility]) ONLY: ?? Pain Team Contact information: please page the Pain Team Via Idea2. Search Pain. During daytime hours, please page the attending first. At night please page the resident first. Agustina Dinh MD [place] ANESTHESIA documented in this encounter Visit Diagnoses [...] CDT lidocaine 2% Other, PRN, Starting on 7/20/24 at 0930, Anesthesia Intra-op $Given 09/27/2023 9:30 AM CDT 20 mg phenylephrine (DERRICK-SYNEPHRINE) injection Intravenous, CONTINUOUS PRN, Starting on 09/27/23 at 0948, Anesthesia Intra-op $New Bag 09/27/2023 9:48 AM CDT 150 mcg $Bolus 09/27/2023 9:42 AM CDT 100 mcg $Bolus 09/27/2023 9:34 AM CDT 100 mcg documented in this encounter Care Teams Cement Mason Apprentice Relationship Specialty Start Date End Date No Ref-Primary, Physician PCP - General 07/22/23 Mica Aguilar MD [address] [place] [address] Assigned OBGYN Provider 08/31/23 documented as of this encounter
--- OUTSIDE RECORDS SUMMARY | 2023-12-17 15:50 | XMS_ITS | Encounter Summary ---
Author Organization [place] Address [address] [facility] [place] [address] Care Team Providers Care District Home Economics Agent Name Role Phone No Ref-Primary, Physician Primary Care Provider Mica Aguilar MD Unavailable [phone] Encounter Details Date Type Department Care [...] Info) Description 12/19/2023 11:00 AM CDT Appointment [facility] [place] [address] [place] [address] Nitin Morris MD [address] [place] [address] 12/19/2023 11:00 AM CDT Office Visit [facility] Customer Marketing Intern Services [facility] [place] [address] 12/19/2023 11:30 AM CDT Office Visit [facility] Maternal Medicine [place] [address] [facility] [address] [place] [phone] Nitin Morris MD [address] [place] [address] 01/02/2024 2:15 PM CDT Appointment [facility] [place] [address] [facility] [address] [place] [phone] Tomasa Dickens MD [address] [place] [address] 01/02/2024 2:45 PM CDT Office Visit [facility] [place] [address] [address] [facility] [address] [place] [phone] Tomasa Dickens MD [address] [place], [place] [address] 01/16/2024 2:15 PM PHARMACY TECH CUSTOMER SERVICE Appointment [facility] [place] [address] [address] [facility] [address] [place] [phone] Tomasa Dickens MD [address] [place] [address] 01/16/2024 2:45 PM PHARMACY TECH CUSTOMER SERVICE Office Visit [facility] [place] [address] [address] [facility] [address] [place] [phone] Tomasa Dickens MD [address] [place], [place] [address] documented as of this encounter Visit Diagnoses Not on filedocumented in this encounter Care Teams District Home Economics Agent Relationship Specialty Start Date End Date No Ref-Primary, Physician PCP - General 07/22/23 Mica Aguilar MD [address] [place] [address] Assigned OBGYN Provider 08/31/23 documented as of this encounter
--- OUTSIDE RECORDS SUMMARY | 2023-12-17 15:50 | XMS_ITS | Clinical Summary ---
Author Organization [facility] Address [place], [place] [address] Care Team Providers Care Shop Welder Name Role Phone None Primary Care Provider [...] of Treatment Not on file Care Teams Shop Welder Relationship Specialty Start Date End Date None . PCP - General 06/23/23
--- OUTSIDE RECORDS SUMMARY | 2023-12-17 15:50 | XMS_ITS | Encounter Summary ---
Author Organization [place] Address [facility] [place] [address] Care Team Providers Care Continuity Director Name Role Phone No Ref-Primary, Physician Primary Care Provider Mica Aguilar MD Unavailable [phone] Reason for Visit * Reason Comments Ultrasound L2-Cochise/Di twins Encounter Details Date Type Department Care Team (Latest Contact Info) Description 09/26/2023 2:45 PM CDT Office Visit [facility] M[facility] Medicine [facility] [place] [address] [facility] [address] [place] [address] Mica Aguilar MD [address] [facility] [address] [place] [address] Angelica Wright MD [address] [place] [address] Monochorionic diamniotic twin gestation in [...] 09/26/2023 2:45 PM CDT Patient presents to [facility] for L2 at 20w3d due to M/D twins. Positive movement x2. Denies LOF, vaginal bleeding or cramping/contractions. SBAR given to [facility] MD, see their note in Epic. documented in this encounter Plan of Treatment Upcoming Encounters Date Type Department Care Team (Late st Contact Info) Description 12/19/2023 11:00 AM CDT Appointment [facility] M[facility] [address] [facility] [address] [place] [phone] Nitin Morris MD [address] [facility] [address] [place], [place] [address] 12/19/2023 11:00 AM CDT Office Visit [facility] [employer] [address] [place] [phone] 12/19/2023 11:30 AM CDT Office Visit [facility] [address] [facility] [address] [place] [phone] Nitin Morris MD [address] [place], [place] [address] 01/02/2024 2:15 PM CDT Appointment [facility] Medicine [place] [address] [facility] [address] [place] [address] Tomasa Dickens MD [address] [place] [address] 01/02/2024 2:45 PM CDT Office Visit [facility] Medicine [place] [address] [facility] [address] [place] [phone] Tomasa Dickens MD [address] [place], [place] [phone] 01/16/2024 2:15 PM PROFESSIONAL SOCCER PLAYER Appointment [place] [address] [facility] [address] [place] [phone] Tomasa Dickens MD [address] [place], [place] [address] 01/16/2024 2:45 PM PROFESSIONAL SOCCER PLAYER Office Visit [place] [address] [facility] [address] [place] [phone] Tomasa Dickens MD [address] [place], [place] [phone] documented as of this encounter Visit Diagnoses Diagnosis 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
--- OUTSIDE RECORDS SUMMARY | 2023-12-17 15:50 | XMS_ITS | Encounter Summary ---
Author Organization [place] Address [address] [place] [address]. [place] [address] Care Team Providers Care Mold Cleaner Name Role Phone No Ref-Primary, Physician Primary Care Provider Mica Aguilar MD Unavailable [phone] Encounter Details Date Type Department Care Team (Late st Contact Info) Description 09/26/2023 1:30 PM CDT Office Visit [facility] Environmental Engineering Manager Services [address] [place] [phone] Lamar Griffith Social History Tobacco Use [...] Info) Description 12/19/2023 11:00 AM CDT Appointment [facility] Maternal Medicine Center [place] [address] [facility] [address] [place] [address] Nitin Morris MD [address] [place] [address] 12/19/2023 11:00 AM CDT Office Visit [facility] Environmental Engineering Manager Services [facility] [place] [address] 12/19/2023 11:30 AM CDT Office Visit [facility] Maternal Medicine [place] [address] [place] [phone] Nitin Morris MD [address] [place] [address] 01/02/2024 2:15 PM CDT Appointment [facility] Maternal Medicine [place] [address] [place] [phone] Tomasa Dickens MD [address] [place] [address] 01/02/2024 2:45 PM CDT Office Visit [facility] Maternal Medicine [place] [address] [place] [phone] Tomasa Dickens MD [address] [place] [address] 01/16/2024 2:15 PM INSTRUCTIONAL COORDINATOR Appointment [facility] Maternal Medicine [place] [address] [place] [phone] Tomasa Dickens MD [address] [place] [address] 01/16/2024 2:45 PM INSTRUCTIONAL COORDINATOR Office Visit [facility] Maternal Medicine [place] [address] [place] [phone] Tomasa Dickens MD [address] [place], [place] [address] documented as of this encounter Visit Diagnoses Not on filedocumented in this encounter Care Teams Mold Cleaner Relationship Specialty Start Date End Date No Ref-Primary, Physician PCP - General 07/22/23 Mica Aguilar MD [address] [place] [address] Assigned OBGYN Provider 08/31/23 documented as of this encounter
[2023-12-17] MEDS: PROCHLORPERAZINE 10 MG TABLET PO (17:21)
[2023-12-17 17:24] LABS: Basophils Percent Auto 0.2 % (0.0-3.0); Eosinophils Percent Auto 0.6 % (0.0-7.0); Hematocrit 37.4 % (33.0-51.0); Hemoglobin* 12.4 gm/dL (12.0-16.0); Immature Granulocytes Pct Auto 0.3 %; Lymphocytes Percent Auto 8.5 % (20-44); Mean Corpuscular HGB Conc 33 gm/dL (32-36); Mean Corpuscular Hemoglobin 29 pg (26-34); Mean Corpuscular Volume 89 fL (80-100); Monocytes Percent Auto 2.3 % (0.0-11.0); Neutrophils Percent Auto 88.1 % (42.0-72.0); Platelet Count* 198 K/uL (140-440); RDW Coefficient of Variation % 14.1 % (11.5-15.5); Red Blood Count 4.22 m/uL (4.00-5.20); White Blood Count* 12.56 K/uL (4.50-11.00)
[2023-12-17 17:25] LABS: Slide Review Reflex No
[2023-12-17 17:28] LABS: Appearance Urine Clear (Clear); Bilirubin Urine Negative (Negative); Blood Urine Negative (Negative); Color Urine Yellow (Yellow); Glucose Urine Negative (Negative); Ketones Urine Negative (Negative); Leukocyte Esterase Urine Negative (Negative); Nitrite Urine Negative (Negative); Protein Urine 1+ (Negative); Specific Gravity Urine 1.025 (1.000-1.030); Urobilinogen Urine 0.2 (0.2-1.0)
[2023-12-17 17:31] LABS: Bacteria Urine Few; Mucus Urine Few; RBC Urine 0-2 (0-2); WBC Urine 0-2 (0-5)
[2023-12-17 17:36] LABS: Chloride* 106 mmol/L (96-114)
[2023-12-17 17:37] LABS: Albumin* 4.3 g/dL (3.3-5.0); Potassium* 4.3 mmol/L (3.6-5.1); Sodium* 138 mmol/L (135-149)
[2023-12-17 17:39] LABS: Creatinine* 0.5 mg/dL (0.5-1.5); Estimated Glomerular Filt Rate 135 ml/min
[2023-12-17 17:40] LABS: Alanine Aminotransferase* 16 U/L (4-35); Alkaline Phosphatase* 161 U/L (40-150); Anion Gap 10 mEq/L (7-15); Aspartate Amino Transferase* 24 U/L (12-35); Bilirubin Total* 0.5 mg/dL (0.1-1.5); Blood Urea Nitrogen* 6 mg/dL (5-24); Calcium* 10.2 mg/dL (8.4-10.6); Carbon Dioxide* 22 mmol/L (20-32); Glucose* 89 mg/dL (60-115); Total Protein* 7.8 g/dL (6.0-8.3)
[2023-12-17] MEDS: OMEPRAZOLE 20 MG CAPSULE DR PO (17:46)
--- NOTE | 2023-12-17 18:21 | PM.OBLDTN ---
OB - Triage/Final Diagnosis Visit Information Narrative: The patient is a 23 year old 1 para 0 at 32 weeks gestation by US, who presents with nausea/vomiting. is complicated by monochorionic diamniotic twin gestation, s/p rescue cerclage placement, GDMA1, GERD and obesity. Kyara notes onset of nausea/vomiting today of unknown etiology. She notes this is atypical of her, where she didn't even have first trimester nausea/vomiting. In addition, she has a sensation of sour taste in her mouth primarily before vomiting. She notes one associated episode of diarrhea. She endorses some abdominal discomfort prior to vomiting, where she feels like she may have to have a BM. She has no other abdominal or pelvic pain, denies any tightening or contractions. She denies any abnormal vaginal discharge, vaginal bleeding, leaking of fluids. She does note low back pain, across the bilateral lumbar region. She denies any upper back or flank pain. She denies dysuria, urgency or suprapubic pain. She does have frequency but notes this is normal for her in with increased water intake. She denies any measured fevers or chills, but she did have one episode of chills on presentation. Endorses active movement x2. She has not taken anything for her pain or nausea/vomiting. No sick contacts, regular dietary intake yesterday. Denies cough, chest pain or nasal drainage. Evaluation Laboratory results: Laboratory Tests 12/17/23 12/17/23 Range/Units 17:20 17:12 WBC 12.56 H (4.50-11.00) K/uL RBC 4.22 (4.00-5.20) m/uL Hgb 12.4 (12.0-16.0) gm/dL Hct 37.4 (33.0-51.0) % MCV 89 (80-100) fL MCH 29 (26-34) pg MCHC 33 (32-36) gm/dL RDW Coeff of Rashi 14.1 (11.5-15.5) % Plt Count 198 (140-440) K/uL Neut % (Auto) 88.1 H (42.0-72.0) % Lymph % (Auto) 8.5 L (20-44) % Kendall % (Auto) 2.3 (0.0-11.0) % Eos % (Auto) 0.6 (0.0-7.0) % Baso % (Auto) 0.2 (0.0-3.0) % Neut # (Auto) 11.10 H (1.7-7.0) K/uL Lymph # (Auto) 1.10 (0.90-2.90) K/uL Kendall # (Auto) 0.30 (0.00-0.90) K/UL Eos # (Auto) 0.10 (0.00-0.50) K/uL Baso # (Auto) 0.00 (0.00-0.30) K/uL Abs Immat Gran (auto) 0.00 (0.00-0.30) K/uL Imm/Tot Granulo (auto) 0.3 % Sodium 138 (135-149) mmol/L Potassium 4.3 (3.6-5.1) mmol/L Chloride 106 (96-114) mmol/L Carbon Dioxide 22 (20-32) mmol/L Anion Gap 10 (7-15) mEq/L BUN 6 (5-24) mg/dL Creatinine 0.5 (0.5-1.5) mg/dL Estimated GFR 135 ml/min Glucose 89 (60-115) mg/dL Calcium 10.2 (8.4-10.6) mg/dL Total Bilirubin 0.5 (0.1-1.5) mg/dL AST 24 (12-35) U/L ALT 16 (4-35) U/L Alkaline Phosphatase 161 H (40-150) U/L Total Protein 7.8 (6.0-8.3) g/dL Albumin 4.3 (3.3-5.0) g/dL Urine Color Yellow (Yellow) Urine Appearance Clear (Clear) Urine pH 8.0 (5.0-8.5) Ur Specific Williamson 1.025 (1.000-1.030) Urine Protein 1+ A (Negative) Urine Glucose (UA) Negative (Negative) Urine Ketones Negative (Negative) Urine Blood Negative (Negative) Urine Nitrite Negative (Negative) Urine Bilirubin Negative (Negative) Urine Urobilinogen 0.2 (0.2-1.0) Ur Leukocyte Esterase Negative (Negative) Urine RBC 0-2 (0-2) Urine WBC 0-2 (0-5) Ur Squamous Epith Cells None (None-Few) Urine Bacteria Few A (None) Urine Mucus Few A (None) Vital signs: Vital Signs - 24 hr 12/17/23 15:37 12/17/23 15:56 12/17/23 16:01 Temperature Pulse Rate Pulse Rate [Pulse Oximeter] 110 H Respiratory Rate 20 Blood Pressure Blood Pressure [Right Upper Arm] 100/65 Pulse Oximetry 99 100 100 Oxygen Delivery Method Room Air 12/17/23 16:02 12/17/23 16:02 12/17/23 17:09 Temperature 98.6 F Pulse Rate 104 H Pulse Rate [Pulse Oximeter] Respiratory Rate 18 Blood Pressure 109/62 Blood Pressure [Right Upper Arm] Pulse Oximetry 100 Oxygen Delivery Method 12/17/23 17:14 12/17/23 17:18 12/17/23 17:18 Temperature 98.5 F Pulse Rate Pulse Rate [Pulse Oximeter] Respiratory Rate 18 Blood Pressure Blood Pressure [Right Upper Arm] Pulse Oximetry 100 Oxygen Delivery Method 12/17/23 17:19 12/17/23 17:24 Temperature Pulse Rate Pulse Rate [Pulse Oximeter] Respiratory Rate Blood Pressure Blood Pressure [Right Upper Arm] Pulse Oximetry 100 100 Oxygen Delivery Method Comments: General: Alert and oriented in no acute distress Psych: Appropriate mood and affect Abdomen: Gravid. Absolutely no tenderness to palpation throughout. Uterine tone is soft, no palpable contractions. No fundal tenderness. No rebound or guarding. Back: Mild tenderness to palpation across low back at the paraspinal muscles. No CVA tenderness or flank pain. Skin: Normal skin turgor. Moist mucous membranes. FHR: Baby A: Reactive NST. FHR 145bpm, moderate variability, 15x15 accelerations present. Decelerations absent. On Obix, please note intermittently baby A was tracing via the maternal heart rate. Baby B: Reactive NST. FHR 150bpm, moderate variability, 15x15 accelerations present. Decelerations absent. Final Diagnosis (1) Vomiting: Status: Acute Problem details: Kyara presented at 32 weeks for vomiting, back pain and headache. She noted vomiting x2 and diarrhea x1, in addition to her baseline GERD with a sour taste in mouth. She denies any abdominal pain or contractions. VS were within normal limits - where she was notably afebrile with no hypertension. Abdominal and back exam were reassuring - absolutely no abdominal tenderness to suggest gallbladder, appendix, urologic infection. Uterine tone is soft, no palpable contractions nor patient reported (though irritability was noted on toco). No bleeding or leaking of fluids. Endorses active movement, status is reactive and reassuring x2. Labs were obtained revealing a normal CBC, CMP and UA. UC pending, though suspicion for UTI/pyelo is low given no WBC, nitrites or leukocyte esterase. No leukocytosis noted given parameters, hypo/hyperglycemia, electrolyte abnormality, liver or hepatic dysfunction. Symptomatic management occurred with compazine 10mg x1 and omeprazole 20mg x1. Anna orally rehydrated through her time in triage successfully. On re-evaluation, Kyara notes her nausea, GERD and headache have completed resolved. As such, we mutually agreed to defer further imaging such as abdominal US. Rx for compazine and omeprazole sent. Strict return precautions were reinforced for fevers/chills, worsening nausea/vomiting or inability to tolerate PO, abdominal pain or mid-back/flank pain. She has MFM visit on 12/18 and routine OB visit in [facility] next week. Recommend low threshold to return to care. president of [place] utilized through duration of our visit. (2) Monochorionic diamniotic twin gestation: Status: Acute (3) GERD (gastroesophageal reflux disease): Status: Acute
--- NOTE | 2023-12-17 19:45 | PC.OBNST ---
NST Note NST Note Start: 12/17/23 16:18 Freq: ONCE Status: Active Protocol: Document 12/17/23 18:10 WK (Rec: 12/17/23 19:44 WK Desktop) NST Note 1 Para (# of births) 0 EDC 02/10/24 Gestational Age In Weeks & Days 32 Weeks & 1 Days High Risk Factors Diabetes - Gestational Diet Controlled Patient Presented with Complaint(s) of Nausea and vomiting,Headache Reactive Yes RN Keyanna RNC Date 12/17/[address] Zhao Date 12/17/23 OB NST charge Yes Complete NST Note via Write Note Yes The provider's electronic signature indicates the NST is reactive/appropriate for gestational age. *Note to provider: If an addendum is required, open the patient's chart and click on the note under the Nurse/Allied Health tab.
== END 2023-12-17 18:42 | disposition home or self-care (01) ==
LOC: ED 15:43 → OB OUT 15:46 → OB 15:47
PROVIDERS: Emergency Provider Family Medicine; Visit Provider Obstetrics & Gynecology
DX: O30.031 Twin pregnancy, monochorionic/diamniotic, first trimester (principal); R11.10 Vomiting, unspecified; K21.9 Gastro-esophageal reflux disease without esophagitis
CPT/HCPCS: 36415; 59025; 80053; 81001; 81003; 85025; 87086; G0463; T1013; A9270

== ENCOUNTER 2024-02-10 14:44 | Outpatient (CLI) | payer BC, SELFPAY ==
--- OUTSIDE RECORDS SUMMARY | 2024-02-10 14:46 | XMS_ITS | Referral Summary ---
Author Organization [facility] Address [address] [place] [address]. [place] [address] Care Team Providers Care Inspector [employer] Name Role Phone No Ref-Primary, Physician Primary Care Provider Didi Daniel MD Unavailable Encounters Date Type Department Care Team Description 01/02/[address] [facility] [address] [place] [address] [phone] 01/02/2024 8:00 AM CDT Office Visit [facility] [address] [place] [address] [phone] Nakita Avila 12/30/2023 7:44 AM CDT - 01/02/2024 12:26 PM CDT Hospital Encounter [facility] [address] [place] [phone] Linda Vizcarra MD S/P section (Primary Dx); affected by growth restriction; 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 Discharge Disposition: Home-Health Care [facility] 01/01/2024 8:00 AM CDT Office Visit [facility] [address] [place] [address] [phone] Angelique Donald 12/31/2023 8:00 AM CDT Office Visit [facility] [address] [place] [address] [phone] Angelique Donald 12/30/2023 Travel 12/30/2023 6:05 AM CDT Ancillary Procedure [facility] [address] [place] [phone] Domingo Desouza MD 12/30/2023 8:30 AM CDT Office Visit [facility] [address] [place] [phone] Angelique Donald 12/30/2023 10:30 AM CDT - 12/30/2023 12:00 PM CDT Surgery [facility] [address] [place] [phone] Linda Vizcarra MD SECTION 12/30/2023 10:05 AM CDT Anesthesia Event [facility] [address] [place] [address] [phone] James Love MD 12/26/2023 Travel 12/26/2023 1:25 PM CDT - 12/26/2023 11:59 PM CDT Hospital Encounter [facility] [address] [phone] Heidi Swain MD Cardenas Hernandez, Isabel C affected by growth restriction; 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 Discharge Disposition: Home or Self Care 12/26/2023 2:00 PM CDT Office Visit [facility] [address] [phone] Heidi Swain MD affected by growth restriction (Primary Dx); 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 12/19/2023 Travel 12/19/2023 11:00 AM CDT Office Visit [facility] [address] [place] [phone] Lamar Griffith 12/19/2023 11:30 AM CDT Office Visit [facility] [address] [place] [phone] Nitin Stein MD affected by growth restriction (Primary Dx); 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 12/19/2023 10:40 AM CDT - 12/19/2023 11:59 PM CDT Hospital Encounter [facility] [place] [address] [place] [phone] Nitin Stein MD Monochorionic diamniotic twin gestation in second trimester Discharge Disposition: Home or Self Care 12/05/2023 Travel 12/05/2023 2:45 PM CDT Office Visit [facility] [place] [address] [place] [phone] Didi Daniel MD 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) 12/05/2023 1:58 PM CDT - 12/05/2023 11:59 PM CDT Hospital Encounter [facility] [place] [address] [place] [phone] Didi Daniel MD Monochorionic diamniotic twin gestation in second trimester Discharge Disposition: Home or Self Care 11/21/2023 Travel 11/21/2023 10:45 AM CDT Office Visit [facility] [address] [place] [phone] Tomasa Dickens MD Nashif, Sereen, MD 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) 11/21/2023 9:59 AM CDT - 11/21/2023 11:59 PM CDT Hospital Encounter [facility] [place] [address] [place] [phone] Tomasa Dickens MD Nashif, Sereen, MD Monochorionic diamniotic twin gestation in second trimester Discharge Disposition: Home or Self Care from Last 3 Months Allergies No known active allergies Medications Vit-Fe Fumarate-FA ( MULTIVITAMIN PLUS IRON) 27-1 MG TABS Take 1 tablet by mouth daily Active aspirin 81 MG EC tablet Take 81 mg by mouth daily Active acetaminophen (TYLENOL) 325 MG tabletIndications :Cervical shortening affecting in second trimester Take 1-2 tablets (325-650 mg) by mouth every 6 hours as needed for mild pain 30 tablet 4 Active senna-docusate (SENOKOT-S/KRISTAL LACE) 8.6-50 MG tabletIndications :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 Take 1 tablet by mouth daily. 45 tablet 4 Active ibuprofen (ADVIL/MOTRIN) 600 MG tabletIndications :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 Take 1 tablet (600 mg) by mouth every 6 hours as needed for moderate pain. 45 tablet 4 Active acetaminophen (TYLENOL) 325 MG tabletIndications :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 Take 2 tablets (650 mg) by mouth every 6 hours as needed for mild pain. 45 tablet 4 Active ferrous sulfate (FEROSUL) 325 (65 Fe) MG tabletIndications :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 Take 1 tablet (325 mg) by mouth daily (with breakfast). 45 tablet 4 Active simethicone (MYLICON) 80 MG chewable tabletIndications :S/P section Take 1 tablet (80 mg) by mouth every 6 hours as needed for flatulence or cramping. 20 tablet 4 Active Active Problems Problem Noted Date Diagnosed Date S/P section 01/02/2024 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 12/30/2023 affected by growth restriction 1 Cervical shortening affecting in secon d trimester 09/26/2023 Immunizations Name Administration Dates Next Due MMR 01/02/2024 Social History Tobacco Use Types Packs/Day Years Used Date Smoking Tobacco: Never Passive Smoke Exposure: Never Smokeless Tobacco: Never Tobacco Cessation:Counseling Given: No Alcohol Use Standard Drinks/Week Comments Not Currently 0 (1 standard drink = 0.6 oz pur e alcohol) [place] Depression Scale Answer Date Recorded Last EPDS Total Score Not on file 01/01/2024 The thought of harming myself has occurred to me . Never 01/01/2024 Adolescent Education Answer Date Record ed Getting School Help Needed Not on file 07/21 Food Insecurity Answer Date Recorded Within the past 12 months, d id you worry that your food would run out before you got money to buy more? No 01/02/2024 Within the past 12 months, d id the food you bought just not last and you didn t have money to get more? No 01/02/2024 Housing Stability Answer Date Recorded Do you have housing? (Maxi sexton is defined as stable permanent housing and does not include staying ouside in a car, in a tent, in an abandoned building, in an overnight fci, or couch-surfing.) Yes 01/02/2024 Are you worried about losing your housing? No 01/02/2024 Financial Resource Strain Answer Date R ecorded Within the past 12 months, h ave you or your family members you live with been unable to get utilities (heat, electricity) when it was really needed? No 01/02/2024 Transportation Needs Answer Date Record ed Within the past 12 months, h as lack of transportation kept you from medical appointments, getting your medicines, non-medical meetings or appointments, work, or from getting things that you need? No 01/02/2024 Comments No Sex and Gender Information Value Date Recorded Sex Assigned at Not on file Legal Sex Female 10:38 AM CDT Gender Identity Not on file Sexual Orientation Not on file Last Filed Vital Signs Vital Sign Reading Time Taken Comments Blood Pressure 116/77 01/02/2024 8:27 AM CDT Pulse 72 01/02/2024 3:08 AM CDT Temperature 37 C (98.6 F) 01/02/2024 3:08 AM CDT Respiratory Rate 16 01/02/2024 3:08 AM CDT Oxygen Saturation 99% 12/31/2023 8:06 AM CDT Inhaled Oxygen Concentration - - Weight 81.1 kg (178 lb 11.2 oz) 01/02/2024 5:30 AM CDT Height 154.9 cm (5' 1) 09/26/2023 4:59 PM CDT Body Mass Index 33.77 09/26/2023 4:59 PM CDT Plan of Treatment Not on file Procedures Procedure Name Priority Date/Time Associated Diagnosis Comments EXTRA GREEN TOP (LITHIUM HEPARIN) TUBE Routine 01/01/2024 7:26 AM CDT EXTRA TUBE Routine 01/01/2024 7:26 AM CDT CBC WITH PLATELETS STAT 01/01/2024 7: 26 AM CDT HEMOGLOBIN Routine 12/31/2023 7:34 AM CDT PLACENTA PATH ORDER AND INDICATIONS Routine 12/30/2023 1:20 PM CDT ANE PERIPHERAL/PARAVETEBRA L BLOCK Routine 12/30/2023 11:51 AM CDT GROUP B STREP PCR Routine 12/30/2023 10: 30 AM CDT SECTION 12/30/2023 10:0 2 AM CDT affected by growth restriction 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 ANE SPINAL BLOCK FORM Routine 12/30/2023 9:56 AM CDT ABO/RH TYPE AND SCREEN STAT 8:40 AM CDT TYPE AND SCREEN, ADULT STAT 8:40 AM CDT HEPATITIS B SURFACE ANTIBODY STAT 12/30/2023 8:40 AM CDT CBC WITH PLATELETS STAT 12/30/2023 8: 40 AM CDT TREPONEMA ABS W REFLEX TO RPR AND TITER STAT 12/30/2023 8:40 AM CDT POC US GUIDANCE NEEDLE PLACEMENT Routine 12/30/2023 6:03 AM CDT REMOVE CERCLAGE Routine 12/26/2023 3:48 PM CDT affected by growth restriction 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 MFM TWINS US COMPREHENSIVE F/U Routine 12/26/2023 3:42 PM CDT affected by growth restriction 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 MFM TWINS US COMPREHENSIVE F/U Routine 12/19/2023 11:54 AM CDT Monochorionic diamniotic twin gestation in second trimester MFM TWINS US COMPREHENSIVE F/U Routine 12/05/2023 2:46 PM CDT Monochorionic diamniotic twin gestation in second trimester MFM TWINS US COMPREHENSIVE F/U Routine 11/21/2023 11:19 AM CDT Monochorionic diamniotic twin gestation in second trimester CHLAMYDIA TRACHOMATIS PCR Routine 09/26/2023 5:50 PM CDT MYRIAD NON-INVASIVE SCREENING PREQUEL Routine 08/08/2023 12:45 PM CDT screening encounter from Last 3 Months or Most Recently Relevant to Health Maintenance Results * Extra Green Top ([place] Heparin) Tube (01/01/2024 7:26 AM CDT) Hold Specimen [facility] 01/01/2024 9:06 AM CDT UR LABORATORY Blood STRUCTURE OF RIGHT UPPER LIMB / Unknown Venipuncture / Unknown 01/01/2024 7:26 AM CDT 01/01/2024 8:00 AM CDT us Linda Vizcarra MD LAB - BLOOD ORDERABLES Final Result UR LABORATORY [facility] [address] [facility] [place], [address] [place] [phone] * (ABNORMAL) CBC with platelets (01/01/2024 7:26 AM CDT) Only the most recent of2 resultswithin the time period is included. WBC Count 9.2 4.0 - 11.0 10e3/uL 01/01/2024 8:01 AM CDT UR LABORATORY RBC Count 3.36(L) 3.80 - 5.20 10e6/uL 01/01/2024 8:01 AM CDT UR LABORATORY Hemoglobin 10.2(L) 11.7 - 15.7 g/dL 01/01/2024 8:01 AM CDT UR LABORATORY Hematocrit 30.4(L) 35.0 - 47.0 % 01/01/2024 8:01 AM CDT UR LABORATORY MCV 91 78 - 100 fL 01/01/2024 8:01 AM CDT UR LABORATORY MCH 30.4 26.5 - 33.0 pg 01/01/2024 8:01 AM CDT UR LABORATORY MCHC 33.6 31.5 - 36.5 g/dL 01/01/2024 8:01 AM CDT UR LABORATORY RDW 14.5 10.0 - 15.0 % 01/01/2024 8:01 AM CDT UR LABORATORY Platelet Count 194 150 - 450 10e3/uL 01/01/2024 8:01 AM CDT UR LABORATORY Blood STRUCTURE OF RIGHT UPPER LIMB / Unknown Venipuncture / Unknown 01/01/2024 7:26 AM CDT 01/01/2024 7:59 AM CDT us Monisha Valentin MD LAB - BLOOD ORDERABLES Final Re sult UR LABORATORY [facility] [address] [facility] [place], [address] [place] [address], [facility] * (ABNORMAL) Hemoglobin (12/31/2023 7:34 AM CDT) Hemoglobin 9.6(L) 11.7 - 15.7 g/dL 12/31/2023 8:09 AM CDT UR LABORATORY Blood STRUCTURE OF RIGHT UPPER LIMB / Unknown Venipuncture / Unknown 12/31/2023 7:34 AM CDT 12/31/2023 8:04 AM CDT Anotnio Goel MD LAB - BLOOD ORDERABLES Daniella schneider Result UR LABORATORY [facility] [address] [facility] [place], [address] [place] [phone] * Placenta path order and indications (12/30/2023 1:20 PM CDT) Case Report Peds Surgical Pathology Report Case: [id number] Authorizing Provider: Antonio Goel MD Collected: 12/30/2023 01:20 PM Ordering Location: [facility] Received: 12/30/2023 03:19 PM [facility] Pathologist: Brad Bolden MD Specimen: Placenta, 34w0d 02/03/2024 9:40 AM ZOOKEEPER UR LABORATORY Final Diagnosis Twin Placenta, Mid Third Trimester, Monochorionic-Diam nionic, 763 Grams (50-75th Percentile), Caesarian Section: Placenta X: Chorionic Villi: - Appropriate Maturation For Gestational Age. Membranes: - No Significant Histologic Abnormalities. Umbilical Cord: - Three Blood Vessels, No Significant Histologic Abnormalities. Placenta Y: Chorionic Villi: - Appropriate Maturation For Gestational Age. Membranes: - No Significant Histologic Abnormalities. Umbilical Cord: - Three Blood Vessels, No Significant Histologic Abnormalities. 02/03/2024 9:40 AM ZOOKEEPER UR [facility] Comment No significant difference in maturation was noted when comparing the 2 halves of the placenta. Additionally, each was equally congested. 02/03/2024 9:40 AM ZOOKEEPER UR LABORATORY Clinical Information 23 year old at 34w0d by 33w3d US with mono-di twin who presents today for scheduled primary section and cerclage removal in the setting of selective growth restriction of Twin 1. 02/03/2024 9:40 AM ZOOKEEPER UR LABORATORY Gross Description A(A). Placenta, 34w0d: The specimen is received fresh with proper patient identification labeled placenta. The specimen consists of a monochorionic diamniotic twin placenta with detached membranes and umbilical cord in the specimen container. A dividing membrane is translucent and firmly attached. The dividing membrane does not appear to be of the division between the vascular patterns of the 2 sides of the placenta. The surrounding membranes are pink-santos and semitranslucent and the point of rupture cannot be identified. The membranes have a marginal insertion. The overall disc measurement is 21.3 x 18.0 cm and the placenta ranges in thickness from 3.5 cm (90%) to 2.5 cm (10%). The placenta arbitrarily designated as placenta X measures 14.5 x 11.2 cm and occupies approximately 50% of the disc and the placenta arbitrarily designated as placenta Y at the time of gross measures 17.0 x 9.5 cm and occupies approximately 50% of the disc. The vascular pattern for placenta Y continues 4.5 cm from the dividing membranes and anastomoses maybe present. The maternal surface is red-brown and complete with no grossly obvious missing cotyledons. Calcifications are present. The overall weight is 763 g. Placenta X: The three-vessel umbilical cord measures 12.1 cm in length, 1.2 cm in diameter, has approximately 2 coils per 10 cm, and inserts eccentrically, 6.0 cm from the nearest possible anastomoses, 11.3 cm from the dividing membrane, and 1.5 cm from the nearest placental margin. The cord is santos-white with no gross lesions. The chorionic plate vessels are medium-caliber and no thrombi are noted. Placenta Y: The three-vessel umbilical cord measures 4.5 cm in length, 1.1 cm in diameter, has approximately 2 coils per 10 cm, and inserts marginally, 6.4 cm from the nearest possible anastomoses, 2.1 cm from the dividing membrane, and two 0.1 cm from the nearest placental margin. The cord is santos-white with no gross lesions. The chorionic plate vessels are medium-caliber and no thrombi are noted. The parenchyma is santos-red and spongy. Summary of Sections: 1 -placenta X, membrane roll ; end of umbilical cord and placental end of umbilical cord (inked) 2 -3 -placenta X, full-thickness, non-marginal section 4-dividing membrane 5-placenta Y, membrane roll; end of umbilical cord and placental end of umbilical cord (inked) 4-6-luqifsmt Y, full-thickness, nonmarginal sections 2-7-jfwslkoj Y, full-thickness, nonmarginal sections 02/03/2024 9:40 AM ZOOKEEPER UR LABORATORY Microscopic Description A microscopic examination was done. The results are reflected in the above diagnoses. I have personally reviewed all specimens and/or slides and used them with my medical judgement to determine the final diagnosis. 02/03/2024 9:40 AM ZOOKEEPER UR LABORATORY Performing Labs The technical component of this testing was completed at [facility]. Stain controls for all stains resulted within this report have been reviewed and show appropriate reactivity. 02/03/2024 9:40 AM ZOOKEEPER UR LABORATORY Case Images 02/03/2024 9:40 AM ZOOKEEPER UR LABORATORY Placenta PLACENTAL STRUCTURE / Unknown Non-blood Collection / Unknown 12/30/2023 1:20 PM CDT 12/30/2023 3:19 PM CDT Antonio Goel MD LAB - LORI Lennon t UR LABORATORY [facility] [address] [facility] [place], [address] [place] [phone] * Peripheral/Paravertebral Block (12/30/2023 11:51 AM CDT) Narrative Domingo Desouza MD - 12/30/2023 11:51 AM CDT Domingo Desouza MD 12/30/2023 11:53 AM TAP Procedure Note Pre-Procedure Staff - Anesthesiologist: James Love MD Resident/Fellow: Domingo Desouza MD Performed By: resident Location: pre-op Pre-Anesthestic Checklist: patient identified, IV checked, site marked, risks and benefits discussed, informed consent, monitors and equipment checked, pre-op evaluation, at physician/surgeon's request and post-op pain management Timeout: Correct Patient: Yes Correct Procedure: Yes Correct Site: Yes Correct Position: Yes Correct Laterality: Yes Site Marked: Yes Procedure Documentation Procedure: TAP Laterality: bilateral Patient Position: supine Patient Prep/Sterile Barriers: sterile gloves Skin prep: Chloraprep Needle Type: insulated Needle Length (millimeters): 110 Catheter: 19 G. Ultrasound guided 1. Ultrasound was used to identify targeted nerve, plexus, vascular marker, or fascial plane and place a needle adjacent to it in real-time. 2. Ultrasound was used to visualize the spread of anesthetic in close proximity to the above referenced structure. Assessment/Narrative The placement was negative for: blood aspirated, painful injection and site bleeding Paresthesias: No. Bolus given via needle. no blood aspirated via catheter. Secured via. Insertion/Infusion Method: Single Shot Complications: none Medication(s) Administered Bupivacaine 0.25% PF (Infiltration) - Infiltration 20 mL - 12/30/2023 11:35:00 AM Bupivacaine liposome (Exparel) 1.3% LA inj susp (Infiltration) - Infiltration 40 mL - 12/30/2023 11:35:00 AM Comments: PF 1/4% bupi given w/ epinephrine FOR [facility] ([facility]) ONLY: Pain Team Contact information: please page the Pain Team Via SimpliVity. Search Pain. During daytime hours, please page the attending first. At night please page the resident first. us James Love MD PA ANESTHESIA Final Result * Group B strep PCR (12/30/2023 10:30 AM CDT) Group B Strep PCR Negative Negative 12:00 PM CDT [facility] Comment:Presumed negative fo r Streptococcus agalactiae (Group B Streptococcus) or the number of organisms may be below the limit of detection of the assay. Swab STRUCTURE OF RECTOVAGINAL SEPTUM / Unknown Non-blood Collection / Unknown 12/30/2023 10:30 AM CDT 12/30/2023 11:17 AM CDT Narrative [facility] - 12/31/2023 12:00 PM CDT The [email or web address] Xpert GBS LB Assay, performed on the app[employer] Systems, is a qualitative in vitro diagnostic test designed to detect Group B Streptococcus (GBS) DNA from enriched vaginal/rectal swab specimens, using fully automated, real-time polymerase chain reaction (PCR) with fluorogenic detection of the amplified DNA. Xpert GBS LB Assay testing is indicated as an aid in determining GBS colonization status in antepartum women. This assay does not diagnose or monitor treatment for GBS infections. The [employer] Xpert GBS LB Assay is intended for use in hospital, reference or state laboratory settings. The device is not intended for [id number] use. us Antonio Goel MD LAB - MICRO GENERAL ORDERAB LES Final Result [facility] Inf. Diseases Diag. Lab [address] [facility], [address] [place] [address] * Spinal Block (12/30/2023 9:56 AM CDT) Narrative Domingo Desouza MD - 12/30/2023 9:56 AM CDT Domingo Desouza MD 12/30/2023 11:50 AM Intrathecal injection Procedure Note Pre-Procedure Staff - Anesthesiologist: James Love MD Resident/Fellow: Domingo Desouza MD Performed By: resident Location: OB Procedure Start/Stop Times: 12/30/2023 9:56 AM and 12/30/2023 10:08 AM Pre-Anesthestic Checklist: patient identified, IV checked, risks and benefits discussed, informed consent, monitors and equipment checked, pre-op evaluation, at physician/surgeon's request and post-op pain management Timeout: Correct Patient: Yes Correct Procedure: Yes Correct Site: Yes Correct Position: Yes Procedure Documentation Procedure: intrathecal injection Patient Position: sitting Skin prep: Chloraprep Insertion Site: L3-4. (midline approach). Needle Gauge: 24. Needle Length (Inches): 4 Spinal Needle Type: Pencan Introducer used Introducer: 20 G # of attempts: 1 and # of redirects: 0 Assessment/Narrative Paresthesias: No. CSF fluid: clear. Medication(s) Administered 0.75% Hyperbaric Bupivacaine (Intrathecal) - Intrathecal 1.8 mL - 12/30/2023 10:08:00 AM Fentanyl PF (Intrathecal) - Intrathecal 15 mcg - 12/30/2023 10:08:00 AM Morphine PF 1 mg/mL (Intrathecal) - Intrathecal 0.15 mg - 12/30/2023 10:08:00 AM Medication Administration Time: 12/30/2023 9:56 AM FOR [facility] ([facility]) ONLY: Pain Team Contact information: please page the Pain Team Via SimpliVity. Search Pain. During daytime hours, please page the attending first. At night please page the resident first. James Love MD PA ANESTHESIA Final Result * Adult Type and Screen (12/30/2023 8:40 AM CDT) ABO/RH(D) A POS 12/30/2023 8:29 AM CDT UR BLOOD BANK Antibody Screen Negative Negative 12/30/2023 8:29 AM CDT UR BLOOD BANK SPECIMEN EXPIRATION DATE [id number] 12/30/2023 8:29 AM CDT UR BLOOD BANK Blood BLOOD SPECIMEN / Unknown Venipuncture / Unknown 12/30/2023 8:40 AM CDT 12/30/2023 8:46 AM CDT Antonio Goel MD LAB - BLOOD BANK TEST ORDER Final Result Performing Organization Address City/[facility]/ZIP Co de Phone Number UR BLOOD BANK [facility] Lab [address] [facility] [place], [address] [place] [phone] * Hepatitis B Surface Antibody (12/30/2023 8:40 AM CDT) Pathologist [facility] Hepatitis B Surface Antibody Reactive 12/30/2023 5:30 PM CDT [facility] Comment:A reactive result in dicates recovery from acute or chronic hepatitis B virus (HBV) infection or acquired immunity from HBV vaccination. This assay does not differentiate between a vaccine-induced immune response and an immune response induced by infection with HBV. A positive total antihepatitis B core result would indicate that the hepatitis B surface antibody response is due to past HBV infection. Hepatitis B Surface Antibody Instrument Value 174.00 <8.5 m[IU]/mL 12/30/2023 5:30 PM CDT [facility] Blood BLOOD SPECIMEN / Unknown Venipuncture / Unknown 12/30/2023 8:40 AM CDT 12/30/2023 12:19 PM CDT Antonio Goel MD LAB - BLOOD ORDERABLES Daniella l Result U LAB[facility] [place] [facility] [address] [facility] [address] [facility], [address] [phone] * Treponema Abs w Reflex to RPR and Titer (12/30/2023 8:40 AM CDT) Treponema Antibody Total Nonreactive Nonreactive 12/30/2023 12:58 PM CDT SPECIALTY CORE/PROT/EN DO Blood BLOOD SPECIMEN / Unknown Venipuncture / Unknown 12/30/2023 8:40 AM CDT 12/30/2023 8:45 AM CDT us Antonio Goel MD LAB - BLOOD ORDERABLES Daniella scnheider Result SPECIALTY CORE/PROT/ENDO Specialty Core/Prot/Endo [address] [facility], Room [address] * POC US Guidance Needle Placement (12/30/2023 6:03 AM CDT) Anatomical Region Laterality Modality Other Impressions 12/30/2023 6:03 AM CDT TRANSVERSUS ABDOMINIS PLANE BLOCK Narrative 12/30/2023 6:03 AM CDT TRANSVERSUS ABDOMINIS PLANE BLOCK us Domingo Desouza MD IMG POCUS Final Result * MFM Twins US Comprehensive F/U (12/26/2023 3:42 PM CDT) Only the most recent of4 resultswithin the time period is included. Anatomical Region Laterality Modality Ultrasound 12/26/2023 1:38 PM CDT Impressions 12/26/2023 4:19 PM CDT IMPRESSION ----- Monochorionic diamniotic twin gestation at 33w 3d with growth restriction of Twin 1 (Twin 1 EFW 9%) Fetus 1 1. The amniotic fluid volume appeared normal. 2. The umbilical artery Doppler studies were within normal limits. 3. heart tracing was appropriate for gestational age. 4. MCA Dopplers were within normal limits. Fetus 2 1. The amniotic fluid volume appeared normal. 2. The umbilical artery Doppler studies were within normal limits. 3. heart tracing was appropriate for gestational age. 4. MCA Dopplers were within normal limits. No evidence to support TTTS or TAPS at this time. Narrative 12/26/2023 4:19 PM [facility] Surveillance US ----- Pat. Name: KYARA ALVAREZ Study Date: 12/26/2023 1:38pm Pat. NO: [id number] Referring MD: NITIN STEIN Site: Windsurfing Instructor: Jason Thompson RDMS : 2000 Age: 23 ----- INDICATION ----- Monochorionic-Diamniotic Twin Gestation Selective growth restriction, twin 1 (sFGR) Cervical insufficiency - cerclage in place METHOD ----- Transabdominal ultrasound examination. View: Sufficient. ----- Twin . Number of fetuses: 2. Monochorionic-diamniotic DATING ----- Date Details Gest. age FERNANDO LMP 04/29/2023 Cycle: irregular cycle 34 w + 3 d 02/03/2024 Previous U/S 07/18/2023 GA, GA 10 w + 3 d 33 w + 3 d 02/10/2024 Assigned dating based on ultrasound (GA), selected on 12/26/2023 33 w + 3 d 02/10/2024 Fetus 1: GENERAL EVALUATION ----- Cardiac activity present. FHR 121 bpm. movements: visualized. Presentation: cephalic, maternal right, presenting Placenta: Anterior, thin dividing membrane Umbilical cord: previously studied Amniotic fluid: Amount of AF: normal. MVP 5.4 cm Fetus 2: GENERAL EVALUATION ----- Cardiac activity present. FHR 146 bpm. movements: visualized. Presentation: breech, maternal left Placenta: Anterior, thin dividing membrane Umbilical cord: previously studied Amniotic fluid: Amount of AF: normal. MVP 7.5 cm Fetus 1: DOPPLER ----- Umbilical Artery: normal PI 0.99 72% Kunal HR 141 bpm Mid Cerebral Artery: normal PS 48.17 cm/s PS 1.01 MoM Fetus 2: DOPPLER ----- Umbilical Artery: normal PI 1.14 90% Kunal HR 149 bpm Mid Cerebral Artery: normal PS 61.86 cm/s PS 1.30 MoM Fetus 1: TTTS ASSESSMENT ----- Cardiac activity: present Placental location: ... Placental cord insertion: ... bladder: normal hydrops: No MVP: 5.4 cm MCA PSV: 48.17 cm/s MCA MoM: 1.01 UA PI: 0.99, 72% Fetus 2: TTTS ASSESSMENT ----- Cardiac activity: present Placental location: ... Placental cord insertion: ... bladder: normal hydrops: No MVP: 7.5 cm MCA PSV: 61.86 cm/s MCA MoM: 1.3 UA PI: 1.14, 90% Fetus 1: NON STRESS TEST ----- NST interpretation: reactive. Test duration 38 min. Baseline FHR 140 bpm. Baseline variability: moderate. Accelerations: present. Decelerations: absent. Uterine activity: present, one contraction Fetus 2: NON STRESS TEST ----- NST interpretation: reactive. Test duration 38 min. Baseline FHR 135 bpm. Accelerations: present. Decelerations: absent. Uterine activity: present, one contraction RECOMMENDATION ----- Thank-you for referring your patient to assess for signs of TTTS/TAPS due to monochorionic twin which is complicated as of last week by a new diagnosis of selective growth restriction of twin 1. We discussed the findings on today's ultrasound with the patient and her partner with the assistance of a counter sales representative via iPad. The patient brought a Post-It note with her on which was written questions and notes for us, including that she could no longer deliver with her local hospital and we needed to arrange care for her elsewhere. We assume that this was from her primary OB provider, but we did not get any additional notification from them. We did call them for more information regarding this Post-It note. We discussed that with her new diagnosis of sFGR in mono-di twins, delivery should be facilitated between [id number]. The patient and her partner were surprised by this and are not yet ready for delivery. We have coordinated with the citrus fruit packer surgical faculty at our primary hospital [facility], and will work to coordinate delivery next week at 34 weeks. We have been able to schedule her delivery via C/S (with cerclage removal) with Dr. Linda Vizcarra next week. No tubal ligation is indicated (patient is a primigravida and does not want tubal at this time). We have called her primary Ob team in [place] to assist with surgical prep as the patient lives quite a distance from our clinics and hospital. If you have questions regarding today's evaluation or if we can be of further service, please contact the [facility]. anomalies may be present but not detected I spent a total of 60 minutes on the date of this encounter including preparing to see the patient (reviewing medical records/tests), counseling and discussing the plan of care, documenting the visit in the electronic medical record, and communicating with other health out of school hours care worker and/or care coordination. Procedure Note Heidi Swain MD - 12/26/2023 Surveillance ----- Pat. Name: KYARA ALVAREZ Study Date: 12/26/2023 1:38pm Pat. NO: [id number] Referring MD: NITIN STEIN Site: Windsurfing Instructor: Jason Thompson RDMS : 2000 Age: 23 ----- INDICATION ----- Monochorionic-Diamniotic Twin Gestation Selective growth restriction, twin 1 (sFGR) Cervical insufficiency - cerclage in place METHOD ----- Transabdominal ultrasound examination. View: Sufficient. ----- Twin . Number of fetuses: 2. Monochorionic-diamniotic DATING ----- DateDetailsGest. age FERNANDO LMP 04/29/2023ycle: irregular cycle34 w + 3 d 02/03/2024 Previous U/S 07/18/2023 GA, GA10 w + 3 d33 w + 3 d 02/10/2024 Assigned dating based on ultrasound (GA), selected on12/26/2023 33w + 3 d 02/10/2024 Fetus 1: GENERAL EVALUATION ----- Cardiac activity present. FHR 121 bpm. movements: visualized.Presentation: cephalic, maternal right, presenting Placenta: Anterior, thin dividing membrane Umbilical cord: previously studied Amniotic fluid: Amount of AF: normal. MVP 5.4 cm Fetus 2: GENERAL EVALUATION ----- Cardiac activity present. FHR 146 bpm. movements: visualized.Presentation: breech, maternal left Placenta: Anterior, thin dividing membrane Umbilical cord: previously studied Amniotic fluid: Amount of AF: normal. MVP 7.5 cm Fetus 1: DOPPLER ----- Umbilical Artery: normal PI 0.9972%Kunal HR 141bpm Mid Cerebral Artery: normal PS 48.17cm/s PS 1.01MoM Fetus 2: DOPPLER ----- Umbilical Artery: normal PI 1.1490%Kunal HR 149bpm Mid Cerebral Artery: normal PS 61.86cm/s PS 1.30MoM Fetus 1: TTTS ASSESSMENT ----- Cardiac activity: present Placental location: ... Placental cord insertion: ... bladder: normal hydrops: No MVP: 5.4 cm MCA PSV: 48.17 cm/s MCA MoM: 1.01 UA PI: 0.99, 72% Fetus 2: TTTS ASSESSMENT ----- Cardiac activity: present Placental location: ... Placental cord insertion: ... bladder: normal hydrops: No MVP: 7.5 cm MCA PSV: 61.86 cm/s MCA MoM: 1.3 UA PI: 1.14, 90% Fetus 1: NON STRESS TEST ----- NST interpretation: reactive. Test duration 38 min. Baseline FHR 140 bpm.Baseline variability: moderate. Accelerations: present. Decelerations:absent. Uterine activity: present, one contraction Fetus 2: NON STRESS TEST ----- NST interpretation: reactive. Test duration 38 min. Baseline FHR 135 bpm.Accelerations: present. Decelerations: absent. Uterine activity: present,one contraction RECOMMENDATION ----- Thank-you for referring your patient to assess for signs of TTTS/TAPS dueto monochorionic twin which is complicated as of last week by anew diagnosis of selective growth restriction of twin 1. We discussed the findings on today's ultrasound with the patient and herpartner with the assistance of a counter sales representative via iPad. The patientbrought a Post-It note with her on which was written questions and notes for us, including thatshe could no longer deliver with her local hospital and we needed toarrange care for her elsewhere. We assume that this was from her primary OB provider, but we did not getany additional notification from them. We did call them for moreinformation regarding this Post-It note. We discussed that with her new diagnosis of sFGR in mono-di twins,delivery should be facilitated between [id number]. The patient and herpartner were surprised by this and are not yet ready for delivery. We have coordinated with the OBGyn surgical faculty at our primary hospital [facility], and will workto coordinate delivery next week at 34 weeks. We have been able to schedule her delivery via C/S(with cerclage removal) with Dr. Linda Vizcarra next week. No tubal ligationis indicated (patient is a primigravida and does not want tubal at this time). We have called [facility] Ob team in [place] to assist with surgical prep as the patientlives quite a distance from our clinics and hospital. If you have questions regarding today's evaluation or if we can be offurther service, please contact the [facility]. anomalies may be present but not detected I spent a total of 60 minutes on the date of this encounter includingpreparing to see the patient (reviewing medical records/tests), counselingand discussing the plan of care, documenting the visit in the electronic medical record, andcommunicating with other health out of school hours care worker and/or carecoordination. IMPRESSION ----- Monochorionic diamniotic twin gestation at 33w 3d with growthrestriction of Twin 1 (Twin 1 EFW 9%) Fetus 1 1. The amniotic fluid volume appeared normal. 2. The umbilical artery Doppler studies were within normal limits. 3. heart tracing was appropriate for gestational age. 4. MCA Dopplers were within normal limits. Fetus 2 1. The amniotic fluid volume appeared normal. 2. The umbilical artery Doppler studies were within normal limits. 3. heart tracing was appropriate for gestational age. 4. MCA Dopplers were within normal limits. No evidence to support TTTS or TAPS at this time. Nitin Stein MD [facility] US ORDERABLES Edited Re sult - Final * Chlamydia trachomatis PCR (09/26/2023 5:50 PM CDT) Chlamydia trachomatis Negative Negative 09/27/2023 11:37 AM CDT [facility] Comment:A negative result by binding printer mediated amplification does not preclude the presence of C. trachomatis infection because results are dependent on proper and adequate collection, absence of inhibitors and sufficient rRNA to be detected. Swab VAGINAL STRUCTURE / Unknown Non-blood Collection / Unknown 09/26/2023 5:50 PM CDT 09/26/2023 6:03 PM CDT Socorro Danielson MD LAB - MICRO GENERAL ORDERABLES Final Result [facility] Inf. Diseases Diag. Lab [address] [facility], [address] [place] [address] * Gigalocal Non-Invasive Screening???Prequel (08/08/2023 12:45 PM CDT) See Scanned Result [facility] NON-INVASIVE SCREENING PREQUEL-Scann ed 08/14/2023 11:49 AM CDT [facility] Blood STRUCTURE OF RIGHT UPPER LIMB / Unknown Venipuncture / Unknown 08/08/2023 12:45 PM CDT 08/08/2023 12:45 PM CDT us Nelsy Diaz GC LAB - BLOOD ORDERABLES Final R esult [facility] [address] [place] [address], [facility] [phone] from Last 3 Months or Most Recently Relevant to Health Maintenance Insurance [employer] [place] [employer] [place] For more information, please contact: [phone] * Full Code (Latest Code Status on File) Date Activated Date Inactivated Comments 12/30/2023 1:57 PM 01/02/2024 2:31 PM All basic and advanced life-sustaining interventions are performed as appropriate Question Answer Comments Code status determined by: Discussion with patie nt/ legal decision maker * Full Code Date Activated Date Inactivated Comments 09/26/2023 4:59 PM 09/27/2023 12:16 PM All basic a nd advanced life-sustaining interventions are performed as appropriate Question Answer Comments Code status determined by: Discussion with patie nt/ legal decision maker Care Teams Inspector [employer] Relationship Specialty Start Date End Date No Ref-Primary, Physician PCP - General 07/22/23 Didi Daniel MD [address] [place] [address] [address] [place] [address] Assigned OBGYN Provider 12/31/23
--- OUTSIDE RECORDS SUMMARY | 2024-02-10 14:46 | XMS_ITS | Encounter Summary ---
Author Organization [facility] Address [address] [place] [address]. [place] [address] Care Team Providers Care Advertising Inserter Name Role Phone No Ref-Primary, Physician Primary Care Provider Didi Daniel MD Unavailable Encounter Details Date Type Department Care Team (Late st Contact Info) Description 01/02/2024 Encounter [facility] [address] [facility] [place] [facility] [place] [address] Social History Tobacco Use Types Packs/Day Years Used Date Smoking Tobacco: Never Passive Smoke Exposure: Never Smokeless Tobacco: Never Alcohol Use Standard Drinks/Week Comments Not Currently 0 (1 standard drink = 0.6 oz pur e alcohol) [place] Depression Scale Answer Date Recorded Last EPDS [...] Answer Date Recorded Do you have housing? (Housin g is defined as stable permanent housing and does not include staying ouside in a car, in a tent, in an abandoned building, in an overnight fpc, or couch-surfing.) Yes 01/02/2024 Are you worried [...] on file documented as of this encounter Miscellaneous Notes * Note - Hollie Aguilar RN - 01/02/2024 1:28 PM CDT This note was copied from a baby's chart. Follow Up Note (with in person collar setter) Reason for visit/ call/ message: Dispense rental pump, check in on comfort/supply with pumping. Supply: Trying to get on pumping schedule; currently here and there pumping for 10ml per pumping session. Significant changes (medications, equipment, comfort, etc): No Hand Hugs/ Skin to Skin/ Oral Care/ Nuzzling/ Latching: Encouraged skin to skin, nuzzling. Education given: Dispensed rental Symphony pump, discussed common troubleshooting tips. Reviewed recommended pumping frequency and rational, benefits of hands on pumping (showed how to make hands free pumping band), hand expression, skin to skin holding, logging. Discussed typical progression of feedings. Plan: Check in at DOL 5. Reviewed availability, encouraged to call with questions/concerns using Armenian Language Line. SBEAS Vines, RN, IBCLC Embedded Software Programmer Baljit: [employer] [phone] Office: [phone] documented in this encounter Plan of Treatment Not on file documented as of this encounter Visit Diagnoses Not on filedocumented in this encounter Care Teams Advertising Inserter Relationship Specialty Start Date End Date No Ref-Primary, Physician PCP - General 07/22/23 Didi Daniel MD [address] [facility] [address] [place] [address] Assigned OBGYN Provider 12/31/23 documented as of this encounter
--- OUTSIDE RECORDS SUMMARY | 2024-02-10 14:46 | XMS_ITS | Encounter Summary ---
Author Organization [facility] Address [address] [place] [address]. [place] [address] Care Team Providers Care Iron Caster Name Role Phone No Ref-Primary, Physician Primary Care Provider Didi Daniel MD Unavailable Encounter Details Date Type Department Care Team (Late st Contact Info) Description 01/02/2024 8:00 AM CDT Office Visit [facility] [employer] [address] [place] [phone] Nakita Avila Social History Tobacco Use Types Packs/Day Years Used Date Smoking Tobacco: Never Passive Smoke Exposure: Never Smokeless Tobacco: Never Alcohol Use Standard Drinks/Week Comments Not Currently 0 (1 standard drink = 0.6 oz pur e alcohol) [place] Depression Scale Answer Date Recorded Last EPDS [...] in an abandoned building, in an overnight half-way, or couch-surfing.) Yes 01/02/2024 Are you worried [...] as of this encounter Plan of Treatment Not on file documented as of this encounter Visit Diagnoses Not on filedocumented in this encounter Care Teams Iron Caster Relationship Specialty Start Date End Date No Ref-Primary, Physician PCP - General 07/22/23 Didi Daniel MD [address] [place] [address] Assigned OBGYN Provider 12/31/23 documented as of this encounter
--- OUTSIDE RECORDS SUMMARY | 2024-02-10 14:46 | XMS_ITS | Clinical Summary ---
Author Organization [facility] Address [address] [place] [address]. [place] [address] Care Team Providers Care Batting Machine Operator Name Role Phone No Ref-Primary, Physician Primary Care Provider Didi Daniel MD Unavailable Allergies No known active allergies Medications Vit-Fe [...] shortening affecting in secon d trimester 09/26/2023 Encounters Date Type Department Care Team Description 01/02/2024 8:00 AM CDT Office Visit [facility] [address] [place] [phone] Nakita Avila 01/02/2024 Encounter [facility] [address] [place] [phone] 01/01/2024 8:00 AM CDT Office Visit [facility] [address] [place] [phone] Angelique Donald 12/31/2023 8:00 AM CDT Office Visit [facility] [address] [place] [phone] Angelique Donald 12/30/2023 10:30 AM CDT - 12/30/2023 12:00 PM CDT Surgery [facility] [address] [place], [place] [address] [phone] Linda Vizcarra MD SECTION 12/30/2023 10:05 AM CDT Anesthesia Event [facility] [address] [place], [place] [address] [phone] James Love MD 12/30/2023 8:30 AM CDT Office Visit [facility] [address] [place] [phone] Angelique Donald 12/30/2023 7:44 AM CDT - 01/02/2024 12:26 PM CDT Hospital Encounter [facility] [address] [place] [address] Linda Vizcarra MD S/P section (Primary Dx); affected by growth restriction; 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 Discharge Disposition: Home-Health Care Sv 12/30/2023 6:05 AM CDT Ancillary Procedure [facility] [address] [place] [address] Domingo Desouza MD 12/30/2023 Travel 12/26/2023 2:00 PM CDT Office Visit [facility] [address] [phone] Heidi Swain MD affected by growth restriction (Primary Dx); 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 12/26/2023 1:25 PM CDT - 12/26/2023 11:59 PM CDT Hospital Encounter [facility] [address] [phone] Heidi Swain MD Cardenas Hernandez, Isabel C affected by growth restriction; 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 Discharge Disposition: Home or Self Care 12/26/2023 Travel 12/19/2023 11:30 AM CDT Office Visit [facility] [place] [address] [facility] [address] [place] [phone] Nitin Stein MD affected by growth restriction (Primary Dx); 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 12/19/2023 11:00 AM CDT Office Visit [facility] [address] [place] [phone] Lamar Griffith 12/19/2023 10:40 AM CDT - 12/19/2023 11:59 PM CDT Hospital Encounter [facility] [address] [place] [address] Nitin Stein MD Monochorionic diamniotic twin gestation in second trimester Discharge Disposition: Home or Self Care 12/19/2023 Travel 12/05/2023 2:45 PM CDT Office Visit [facility] [place] [address] [place] [address] Didi Daniel MD 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) 12/05/2023 1:58 PM CDT - 12/05/2023 11:59 PM CDT Hospital Encounter [facility] [place] [address] [place] [address] Didi Daniel MD Monochorionic diamniotic twin gestation in second trimester Discharge Disposition: Home or Self Care 12/05/2023 Travel 11/21/2023 10:45 AM CDT Office Visit [facility] [place] [address] [place] [address] Tomasa Dickens MD Nashif, Sereen, MD 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) 11/21/2023 9:59 AM CDT - 11/21/2023 11:59 PM CDT Hospital Encounter [facility] [place] [address] [place] [address] Tomasa Dickens MD Nashif, Sereen, MD Monochorionic diamniotic twin gestation in second trimester Discharge Disposition: Home or Self Care 11/21/2023 Travel from Last 3 Months Immunizations Name Administration Dates Next Due MMR 01/02/2024 Social History Tobacco Use Types Packs/Day Years Used Date Smoking Tobacco: Never Passive Smoke Exposure: Never Smokeless Tobacco: Never Tobacco Cessation:Counseling Given: No Alcohol Use Standard Drinks/Week Comments Not Currently 0 (1 standard drink = 0.6 oz pur e alcohol) [place] Depression Scale Answer Date Recorded Last EPDS [...] 09/26/2023 4:59 PM CDT Plan of Treatment Health Maintenance Due Date Last Done Comments ADVANCE CARE PLANNING 2000 ANNUAL REVIEW OF HM ORDERS 2000 YEARLY PREVENTIVE VISIT 2000 Pneumococcal Vaccine: Pediatrics (0 to 5 Years) and At-Risk Patients (6 to 64 Years) (1 of 2 - PCV) 2006 HIV SCREENING 10/12/2015 HPV IMMUNIZATION (1 - 3-dose series) 10/12/2015 HEPATITIS C SCREENING 2018 PHQ-2 (once per calendar year) 2023 COVID-19 Vaccine ( - season) 2023 INFLUENZA VACCINE (#1) 2023 03/29/2014 CHLAMYDIA SCREENING 09/25/2024 09/26/2023, PAP 12/03/2025 12/03/2022, 12/03/2022 DTAP/TDAP/TD IMMUNIZATION (5 - Td or Tdap) 11/27/2033 11/28/2023, 11/22/2014, 05/06/2014, Additional history exists RSV VACCINE (1 - 1-dose 75+ series) 10/12/2075 MENINGITIS IMMUNIZATION Aged Out 03/29/2014 No l onger eligible based on patient's age to complete this topic HEPATITIS B IMMUNIZATION Completed 015, 05/06/2014, 04/08/2014 RSV MONOCLONAL ANTIBODY Aged Out No l [...] Health Maintenance Results * Extra Green Top ([place] Heparin) Tube (01/01/2024 7:26 AM CDT) Pathologist [facility] Hold Specimen JIC 01/01/2024 9:06 AM CDT UR LABORATORY Blood STRUCTURE OF RIGHT UPPER LIMB / Unknown Venipuncture / Unknown 01/01/2024 7:26 AM CDT 01/01/2024 8:00 AM CDT us Linda Vizcarra MD LAB - BLOOD ORDERABLES Final Result UR LABORATORY [facility] [address] [place] [address], [address] [place] [phone] * (ABNORMAL) CBC with platelets (01/01/2024 7:26 AM CDT) Only the most recent of2 resultswithin the time period is included. Pathologist [facility] WBC Count 9.2 4.0 - 11.0 10e3/uL [...] LAB - BLOOD ORDERABLES Final Re sult Performing Organization Address City/[facility]/ZIP Co de Phone Number UR LABORATORY [facility] [address] [place] [address], [address] * (ABNORMAL) Hemoglobin (12/31/2023 7:34 AM CDT) Hemoglobin 9.6(L) 11.7 - 15.7 g/dL 12/31/2023 8:09 AM CDT UR LAB[facility] Blood STRUCTURE OF RIGHT UPPER LIMB / Unknown Venipuncture / Unknown 12/31/2023 7:34 AM CDT 12/31/2023 8:04 AM CDT us Antonio Goel MD LAB - BLOOD ORDERABLES Daniella l Result UR LABORATORY [facility] [address] [place] [address], [address] * Placenta path order and indications (12/30/2023 1:20 PM CDT) Case Report Peds Surgical Pathology Report Case: [id number] Authorizing Provider: Antonio Goel MD Collected: 12/30/2023 01:20 PM Ordering Location: [facility] Received: 12/30/2023 03:19 PM [facility] Pathologist: Brad Bolden MD Specimen: Placenta, 34w0d 02/03/2024 9:40 AM EVALUATOR UR LABORATORY Final Diagnosis Twin Placenta, Mid [...] No Significant Histologic Abnormalities. 02/03/2024 9:40 AM EVALUATOR UR LABORATORY Comment No significant difference in maturation was noted when comparing the 2 halves of the placenta. Additionally, each was equally congested. 02/03/2024 9:40 AM EVALUATOR UR LABORATORY Clinical Information 23 year old at 34w0d by 33w3d US with mono-di twin who presents today for scheduled primary section and cerclage removal in the setting of selective growth restriction of Twin 1. 02/03/2024 9:40 AM EVALUATOR UR LABORATORY Gross Description A(A). Placenta, 34w0d: [...] and placental end of umbilical cord (inked) 3-6-onxiawar Y, full-thickness, nonmarginal sections 2-6-wuldmubc Y, full-thickness, nonmarginal sections 02/03/2024 9:40 AM EVALUATOR UR LABORATORY Microscopic Description A microscopic examination was done. The results are reflected in the above diagnoses. I have personally reviewed all specimens and/or slides and used them with my medical judgement to determine the final diagnosis. 02/03/2024 9:40 AM EVALUATOR UR LABORATORY Performing Labs The technical component of this testing was completed at [facility]. Stain controls for all stains resulted within this report have been reviewed and show appropriate reactivity. 02/03/2024 9:40 AM EVALUATOR UR LABORATORY Case Images 02/03/2024 9:40 AM EVALUATOR UR LABORATORY Placenta PLACENTAL STRUCTURE / Unknown Non-blood Collection / Unknown 12/30/2023 1:20 PM CDT 12/30/2023 3:19 PM CDT us Antonio VAUGHN - LORI Murillo Resul t UR LABORATORY [facility] [address] [facility], [address] [place] [address] * Peripheral/Paravertebral Block (12/30/2023 11:51 AM CDT) [...] PF 1/4% bupi given w/ epinephrine FOR [facility] ([place]) ONLY: Pain Team Contact information: please page the Pain Team Via [employer]. Search Pain. During daytime hours, please page the attending first. At night please page the resident first. us James Love MD ME ANESTHESIA Final Result * Group B strep PCR (12/30/2023 10:30 AM CDT) Group B Strep PCR Negative Negative 024 12:00 PM CDT [facility] Comment:Presumed negative fo r Streptococcus agalactiae (Group B Streptococcus) or the number of organisms may be below the limit of detection of the assay. Swab STRUCTURE OF RECTOVAGINAL SEPTUM / Unknown Non-blood Collection / Unknown 12/30/2023 10:30 AM CDT 12/30/2023 11:17 AM CDT Narrative [facility] - 12/31/2023 12:00 PM CDT The [employer] Xpert GBS LB Assay, performed on the [facility], is a qualitative in vitro diagnostic [...] settings. The device is not intended for mgufs-lb-aklb use. us Antonio Goel MD LAB - MICRO GENERAL ORDERAB LES Final Result [facility] Inf. Diseases Diag. Lab [address] [facility], [address] [place] [address], [facility] * Spinal Block (12/30/2023 9:56 AM CDT) [...] Medication Administration Time: 12/30/2023 9:56 AM FOR [facility] ([facility]) ONLY: Pain Team Contact information: please page the Pain Team Via [employer]. Search Pain. During daytime hours, please page the attending first. At night please page the resident first. James Love MD ME ANESTHESIA Final Result * Adult Type and Screen (12/30/2023 8:40 AM CDT) ABO/RH(D) A POS 12/30/2023 8:29 AM CDT UR BLOOD BANK Antibody Screen Negative Negative 12/30/2023 8:29 AM CDT UR BLOOD BANK SPECIMEN EXPIRATION DATE [id number] 12/30/2023 8:29 AM CDT UR BLOOD BANK Blood BLOOD SPECIMEN / Unknown Venipuncture / Unknown 12/30/2023 8:40 AM CDT 12/30/2023 8:46 AM CDT Antonio Goel MD LAB - BLOOD BANK TEST ORDER Final Result UR BLOOD BANK [facility] [place] [facility] [address], [address] [place] [address] * Hepatitis B Surface Antibody (12/30/2023 8:40 AM CDT) Hepatitis B Surface Antibody Reactive 12/30/2023 5:30 [...] LAB - BLOOD ORDERABLES Daniella l Result [facility] [place] [facility] [address] [facility], [address] [place] [address] * Treponema Abs w Reflex to RPR and Titer (12/30/2023 8:40 AM CDT) Treponema Antibody Total Nonreactive Nonreactive 12/30/2023 12:58 PM CDT [facility] CORE/PROT/EN DO Blood BLOOD SPECIMEN / Unknown Venipuncture / Unknown 12/30/2023 8:40 AM CDT 12/30/2023 8:45 AM CDT Antonio Goel MD LAB - BLOOD ORDERABLES Daniella l Result [facility] C[facility]/PROT/ENDO [facility]/Prot/Endo [address] [facility] [address], [address] * POC US Guidance Needle Placement [...] at this time. Narrative 12/26/2023 4:19 PM CDT [facility] Surveillance US ----- Pat. Name: KAYRA ALVAREZ Study Date: 12/26/2023 1:38pm Pat. NO: [id number] Referring MD: NITIN STEIN Site: Metalsmith Helper: Jason Thompson RDMS : 2000 Age: 23 [...] her partner with the assistance of a waterworks supervisor via iPad. The patient brought a Post-It [...] mono-di twins, delivery should be facilitated between 46a4s-34g0l. The patient and her partner were surprised by this and are not yet ready for delivery. We have coordinated with the wharf tender helper surgical faculty at our primary hospital [facility], and will work to coordinate delivery next week at 34 weeks. We have been able to schedule her delivery via C/S (with cerclage removal) with Dr. Linda Vizcarra next week. No tubal ligation is indicated (patient is a primigravida and does not want tubal at this time). We have called her primary Ob team in [place] to assist with surgical prep as the [...] medical record, and communicating with other health neonatal intensive care unit nurse and/or care coordination. Procedure Note Heidi Swain MD - 12/26/2023 Surveillance ----- Pat. Name: KYARA ALVAREZ Study Date: 12/26/2023 1:38pm Pat. NO: [id number] Referring MD: NITIN STEIN Site: Metalsmith Helper: Jason Thompson RDMS : 2000 Age: 23 ----- INDICATION ----- Monochorionic-Diamniotic Twin Gestation Selective growth restriction, twin 1 (sFGR) Cervical insufficiency - cerclage in place METHOD ----- Transabdominal ultrasound examination. View: Sufficient. ----- Twin . Number of fetuses: 2. Monochorionic-diamniotic DATING ----- DateDetailsGest. age FERNANDO LMP 4Cycle: irregular cycle34 w + 3 d 02/03/2024 [...] and herpartner with the assistance of a waterworks supervisor via iPad. The patientbrought a Post-It note [...] in mono-di twins,delivery should be facilitated between 02w1t-06j6m. The patient and herpartner were surprised by this and are not yet ready for delivery. We have coordinated with the OBGyn surgical faculty at our primary hospital [facility], and will workto coordinate delivery next week at 34 weeks. We have been able to schedule her delivery via C/S(with cerclage removal) with Dr. Linda Vizcarra next week. No tubal ligationis indicated (patient is a primigravida and does not want tubal at this time). We have called [facility] Ob team in [place] to assist with surgical prep as the [...] electronic medical record, andcommunicating with other health neonatal intensive care unit nurse and/or carecoordination. IMPRESSION ----- [...] support TTTS or TAPS at this time. us Nitin Stein MD [facility] US ORDERABLES Edited Re sult - Final * Chlamydia trachomatis PCR (09/26/2023 5:50 PM CDT) Chlamydia trachomatis Negative Negative 09/27/2023 11:37 AM CDT [facility] Comment:A negative result by college intern mediated amplification does not preclude the presence of C. trachomatis infection because results are dependent on proper and adequate collection, absence of inhibitors and sufficient rRNA to be detected. Swab VAGINAL STRUCTURE / Unknown Non-blood Collection / Unknown 09/26/2023 5:50 PM CDT 09/26/2023 6:03 PM CDT Socorro Danielson MD LAB - MICRO GENERAL ORDERABLES Final Result [facility] Inf. Diseases Diag. Lab [address] [facility], [address] [place] [address] * [employer] Non-Invasive Screening???Prequel (08/08/2023 12:45 PM CDT) See Scanned Result I[employer] NON-INVASIVE SCREENING PREQUEL-Scann ed 08/14/2023 11:49 AM CDT [employer] Blood STRUCTURE OF RIGHT UPPER LIMB / Unknown Venipuncture / Unknown 08/08/2023 12:45 PM CDT 08/08/2023 12:45 PM CDT us Nelsy Diaz GC LAB - BLOOD ORDERABLES Final R esult [employer] [address] [place], [place] [address] [phone] from Last 3 Months or Most Recently Relevant to Health Maintenance Insurance [employer] [place] [employer] [place] Advance Directives For more information, please contact: [phone] * Full Code (Latest Code Status on [...] patie nt/ legal decision maker Care Teams Batting Machine Operator Relationship Specialty Start Date End Date No Ref-Primary, Physician PCP - General 07/22/23 Didi Daniel MD [address] [facility] [address] [place] [address] Assigned OBGYN Provider 12/31/23
--- OUTSIDE RECORDS SUMMARY | 2024-02-10 14:47 | XMS_ITS | Encounter Summary ---
Author Organization [facility] Address [address] [place] [address]. [place] [address] Care Team Providers Care Shuttler Name Role Phone No Ref-Primary, Physician Primary Care Provider Mica Aguilar MD Unavailable [phone] Encounter Details Date Type Department Care Team (Late st Contact Info) Description 12/30/2023 6:05 AM CDT Ancillary Procedure [facility] [address] [place] [address] Domingo Desouza MD [address] [facility] [address] [place], [place] [id number] Social History Tobacco Use Types Packs/Day Years Used Date Smoking Tobacco: Never Passive Smoke Exposure: Never Smokeless Tobacco: Never Alcohol Use Standard Drinks/Week Comments Not Currently 0 (1 standard drink = 0.6 oz pur e alcohol) Adolescent Education Answer Date Record ed Getting School Help Needed Not on file 07/21 Comments Yes Sex and Gender Information Value Date Recorded Sex Assigned at Not on file Legal Sex Female 10:38 AM CDT Gender Identity Not on file Sexual Orientation Not on file documented as of this encounter Plan of Treatment Not on file documented as of this encounter Procedures Procedure Name Priority Date/Time Associated Diagnosis Comments POC US GUIDANCE NEEDLE PLACEMENT Routine 12/30/2023 6:03 AM CDT documented in this encounter Results * POC US Guidance Needle Placement (12/30/2023 6:03 AM CDT) Anatomical Region Laterality Modality Other Impressions 12/30/2023 6:03 AM CDT TRANSVERSUS ABDOMINIS PLANE BLOCK Narrative 12/30/2023 6:03 AM CDT TRANSVERSUS ABDOMINIS PLANE BLOCK Domingo Desouza MD IMG POCUS Final Result documented in this encounter Visit Diagnoses Not on filedocumented in this encounter Care Teams Shuttler Relationship Specialty Start Date End Date No Ref-Primary, Physician PCP - General 07/22/23 Mica Aguilar MD [address] [place] [id number] Assigned OBGYN Provider 08/31/2312/29 documented as of this encounter
--- OUTSIDE RECORDS SUMMARY | 2024-02-10 14:47 | XMS_ITS | Encounter Summary ---
Author Organization [place] Address [facility] [place] [address] Care Team Providers Care Care Transition Mgr Name Role Phone No Ref-Primary, Physician Primary Care Provider Mica Aguilar MD Unavailable [phone] Reason for Referral * Diagnostic Imaging Ultrasound (Routine) - Pending Review Specialty Diagnoses / Procedures Referred By Contac shelton Referred To Contact Radiology. 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 Procedures MFM Twins Comprehensive F/U Nitin Stein MD [address] [place] [address] Phone: tel: fax: Referral ID Status Reason Start Date Expiration Date V isits Requested Visits Authorized [id number] Pending Review 12/19/2023 12/18/2024 1 1 Reason for Visit * Diagnostic Imaging Ultrasound (Routine) - Pending Review Specialty Diagnoses / Procedures Referred By Contac t Referred To Contact Radiology. 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 Procedures MFM Twins US Comprehensive F/U Nitin Stein MD [address] [place] [address] Phone: tel: fax: Referral ID Status Reason Start Date Expiration Date V isits Requested Visits Authorized [id number] Pending Review 12/19/2023 12/18/2024 1 1 Encounter Details Date Type Department Care Team (Latest Contact Info) Description 12/26/2023 1:25 PM CDT - 12/26/2023 11:59 PM CDT Hospital Encounter [facility] [address] [place] [address] Heidi Swain MD [address] [place] [address] Nell Dailey affected by growth restriction; Monochorionic diamniotic twin [...] this encounter Medications at Time of Discharge acetaminophen (TYLENOL) 325 MG tabletIndications: 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 Take 2 tablets (650 mg) by mouth every 6 hours as needed for mild pain. 45 tablet 01/01/2024 acetaminophen (TYLENOL) 325 MG tabletIndications: Cervical shortening affecting in second trimester Take 1-2 tablets (325-650 mg) by mouth every 6 hours as needed for mild pain 30 tablet 09/28/2023 aspirin 81 MG EC tablet Take 81 mg by mouth daily ferrous sulfate (FEROSUL) 325 (65 Fe) MG tabletIndications: 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 Take 1 tablet (325 mg) by mouth daily (with breakfast). 45 tablet 01/01/2024 ibuprofen (ADVIL/MOTRIN) 600 MG tabletIndications: 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 Take 1 tablet (600 mg) by mouth every 6 hours as needed for moderate pain. 45 tablet 01/01/2024 Vit-Fe Fumarate-FA ( MULTIVITAMIN PLUS IRON) 27-1 MG TABS Take 1 tablet by mouth daily senna-docusate (SENOKOT-S/PERICOL ADRIANNA) 8.6-50 MG tabletIndications: 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 Take 1 tablet by mouth daily. 45 tablet 01/01/2024 simethicone (MYLICON) 80 MG chewable tabletIndications: S/P section Take 1 tablet (80 mg) by mouth every 6 hours as needed for flatulence or cramping. 20 tablet 01/02/2024 oxyCODONE (ROXICODONE) 5 MG tabletIndications: S/P section Take 1 tablet (5 mg) by mouth every 6 hours as needed for severe pain. 6 tablet 01/02/2024 documented as of this encounter Miscellaneous Notes * Addendum Note - Jason Thompson, Registered Assistant Offset Press Operator - 12/26/2023 3:42 PM CDTEncounter addended by: Jason Thompson Registered Assistant Offset Press Operator on: 12/26/2023 3:42 PM Actions taken: Imaging Exam ended, Flowsheet accepted, Charge Capture section accepted documented in this encounter Plan of Treatment Not on file documented as of this encounter Procedures Procedure Name Priority Date/Time Associated Diagnosis Comments MFM TWINS US COMPREHENSIVE F/U Routine 12/26/2023 3:42 PM CDT affected by growth restriction 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 documented in this encounter Results * MFM Twins US Comprehensive F/U (12/26/2023 3:42 PM CDT) Anatomical Region Laterality Modality Ultrasound 12/26/2023 1:38 [...] at this time. Narrative 12/26/2023 4:19 PM T Surveillance US ----- Pat. Name: KYARA MISHRA Study Date: 12/26/2023 1:38pm Pat. NO: [id number] Referring MD: NITIN STEIN Site: [place] Pumper: Jason Thompson RDMS : 2000 Age: 23 [...] her partner with the assistance of a diplomatic interpreter/translator via iPad. The patient brought a Post-It [...] mono-di twins, delivery should be facilitated between [id number]. The patient and her partner were surprised by this and are not yet ready for delivery. We have coordinated with the photographic intelligence officer surgical faculty at our primary hospital [facility], and will work to coordinate delivery next week at 34 weeks. We have been able to schedule her delivery via C/S (with cerclage removal) with Dr. Linda Vizcarra next week. No tubal ligation is indicated (patient is a primigravida and does not want tubal at this time). We have called her primary Ob team in [place] to assist with surgical prep as the [...] medical record, and communicating with other health grounds caretaker and/or care coordination. Procedure Note Heidi Swain MD - 12/26/2023 Surveillance US ----- Pat. Name: KYARA MISHRA Study Date: 12/26/2023 1:38pm Pat. NO: [id number] Referring MD: NITIN STEIN Site: [place] P[place]: Jason DouglasKALIE brewster : 2000 Age: 23 ----- INDICATION ----- [...] and herpartner with the assistance of a diplomatic interpreter/translator via iPad. The patientbrought a Post-It note [...] in mono-di twins,delivery should be facilitated between [id number]. The patient and herpartner were surprised by this and are not yet ready for delivery. We have coordinated with the OBGyn surgical faculty at our primary hospital [facility], and will workto coordinate delivery next week at 34 weeks. We have been able to schedule her delivery via C/S(with cerclage removal) with Dr. Linda Vizcarra next week. No tubal ligationis indicated (patient is a primigravida and does not want tubal at this time). [facility] [place] to assist with surgical prep as the [...] electronic medical record, andcommunicating with other health grounds caretaker and/or carecoordination. IMPRESSION ----- Monochorionic diamniotic twin [...] TAPS at this time. Nitin Stein MD [facility] US ORDERABLES Edited Re sult - Final documented in this encounter Visit Diagnoses Diagnosis affected by growth restriction 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 documented in this encounter Care Teams Care Transition Mgr Relationship Specialty Start Date End Date No Ref-Primary, Physician PCP - General 07/22/23 Mica Aguilar MD [address] [facility] [address] [place] [address] Assigned OBGYN Provider 08/31/2312/29 documented as of this encounter
--- OUTSIDE RECORDS SUMMARY | 2024-02-10 14:47 | XMS_ITS | Encounter Summary ---
Author Organization [place] Address [facility] 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 [address] [place] [phone] Phone: tel: Referral ID Status Reason Start Date Expiration Date Visits Re quested Visits Authorized [id number] 1 1 Encounter Details Date Type Department Care Team ([facility] st Contact Info) Description 12/30/2023 10:05 AM CDT Anesthesia Event [facility] [address] [place] [address] James Love MD [address] [place] [address] Anesthesia Record Procedure Summary Procedure Name Responsible Anesthesiologist Anesthesia Start Time Anesthesia Stop Time SECTION (Abdomen) James Love MD 12/30/23 1005 12/30/23 1148 Events Date Time Event Comment 12/30/2023 1005 An Start Anesthesia Star t is defined as when the anesthesia provider assumed care, began anesthesia prep, remained continuously present with the patient, and excludes all time for performing the pre-anesthesia evaluation. The Pre-Anesthesia Evaluation was completed before Anesthesia Start. 1005 An Start Data 1005 AN REASSESS I attest that I have identified and re-evaluated the patient immediately before the induction of anesthesia and I am satisfied that the anesthetic plan is suitable for the patient's condition and procedure. The first vital signs recorded are pre- induction. Domingo Desouza MD 1014 Anesthesia Ready for Procedu re 1036 Uterine Incision 1037 Baby Delivered 1040 Placenta Delivered 1143 an stop data 1148 An Stop Electronically signed by Domingo Desouza MD on December 30, 2023 11:49 AM Meds Name Total ketorolac 30 mg/mL 15 mg phenylephrine 0.2 mg/mL (mcg/min) drip 4 ,900 mcg dexamethasone (DECADRON) 4 mg/mL 4 mg ondansetron 2 mg/mL 4 mg famotidine (PEPCID) injection 20 mg ceFAZolin Sodium (ANCEF) injection 2 g 2 g oxytocin (PITOCIN) 30 units in 500 mL 0. 9% NaCl infusion 406.67 mL dexmedeTOMIDine (PRECEDEX) 4 mcg/mL bolu s 8 mcg Fentanyl PF (Intrathecal) 15 mcg 0.75% Hyperbaric Bupivacaine (Intratheca l) 1.8 mL Morphine PF 1 mg/mL (Intrathecal) 0.15 m g Bupivacaine 0.25% PF (Infiltration) 20 m L Bupivacaine liposome (Exparel) 1.3% LA i nj susp (Infiltration) 40 mL LR 800 mL * Agents Name N2O Air * Blood No blood administrations on file. Lines, Drains, and Airways Type Details Placement Removal Incision/Surgical Site 12/30/23; 1130; Lower, Midline; Abdomen 12/30/23 1130 by Quin Acuña RN Peripheral IV 12/30/23; 0830; 18 G; Anterior, Left; Hand 12/30/23 0830 by Quin Acuña RN 12/31/23 1113 by Yanet Vásquez RN Urethral Catheter 12/30/23; 1020; Surgical procedure; Other (comment) (per order) 12/30/23 1020 by Quin Acuña RN 12/30/23 1900 by Lata Ruiz RN documented in this encounter Social History [...] of this encounter OR Notes * Anesthesia Procedure Notes - Domingo Desouza MD - 12/30/2023 11:51 AM CDT Associated Order(s): Peripheral/Paravertebral Block TAP Procedure Note Pre-Procedure Staff - Anesthesiologist: [...] [facility] ([facility]) ONLY: Pain Team Contact information: please page the Pain Team Via [employer]Search Pain. During daytime hours, please page the attending first. At night please page the resident first. * Anesthesia Postprocedure Evaluation - James Love MD - 12/30/2023 11:51 AM CDT Patient: Kyara Villegas Procedure: Procedure(s): SECTION REMOVAL, CERCLAGE SUTURE Anesthesia Type: Spinal Note: Disposition: Inpatient Postop Pain Control: Uneventful Sign Out: Well controlled pain PONV: No Neuro/Psych: Uneventful Sign Out: Acceptable/Baseline neuro status Airway/Respiratory: Uneventful Sign Out: Acceptable/Baseline resp. status CV/Hemodynamics: Uneventful Sign Out: Acceptable CV status; No obvious hypovolemia; No obvious fluid overload Other NRE: NONE DID A NON-ROUTINE EVENT OCCUR? No Last vitals: Vitals: 12/30/23 0805 12/30/23 0916 BP: 102/58 93/51 Resp: 18 Temp: 36.9 ??C (98.4 ??F) Electronically Signed By: James Love MD December 30, 2023 11:51 AM * Anesthesia Procedure Notes - Domingo Desouza MD - 12/30/2023 10:45 AM CDT Associated Order(s): Spinal Block Intrathecal [...] [facility] ([facility]) ONLY: Pain Team Contact information: please page the Pain Team Via [employer]Search Pain. During daytime hours, please page the attending first. At night please page the resident first. * Anesthesia Preprocedure Evaluation - James Love MD - 12/29/2023 3:23 PM CDT Anesthesia Pre-Procedure Evaluation Patient: Kyara Villegas : 2000 Procedure : Procedure(s): SECTION REMOVAL, CERCLAGE SUTURE No past medical history on file. Past Surgical History: Procedure Laterality Date CERCLAGE CERVICAL N/A 09/27/2023 Procedure: Cerclage cervical; Surgeon: Heidi Swain MD; Location: [facility] L+D No Known Allergies Social History Tobacco Use Smoking status: Never Passive exposure: Never Smokeless tobacco: Never Substance Use Topics Alcohol use: Not Currently Wt Readings from Last 1 Encounters: 09/26/23 75.8 kg (167 lb) Anesthesia Evaluation Pt has had prior anesthetic. Type: Regional. 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 Consents Anesthesia Plan(s) and associated risks, benefits, and realistic alternatives discussed. Questions answered and patient/registration representative(s) expressed understanding. - Discussed: - Discussed with: Patient Postoperative Care Pain management: IV analgesics, Oral pain medications, Peripheral nerve block (Single Shot), Multi-modal analgesia, intrathecal morphine. PONV prophylaxis: Ondansetron (or other 5HT-3), Dexamethasone or Solumedrol Comments: Domingo Desouza MD I have reviewed the pertinent notes and labs in the chart from the past 30 days and (re)examined the patient. Any updates or changes from those notes are reflected in this note. documented in this encounter Miscellaneous Notes * Anesthesia Care Transfer Note - Domingo Desouza MD - 12/30/2023 11:49 AM CDT Patient: Kyara Villegas Procedure: Procedure(s): SECTION REMOVAL, CERCLAGE SUTURE Diagnosis: affected by growth restriction [O36.5990] 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 [O30.033] Diagnosis Additional Information: No value filed. Anesthesia Type: Spinal Note: Oropharynx: spontaneously breathing Level of Consciousness: awake Independent Airway: airway patency not satisfactory and stable Dentition: dentition unchanged Vital Signs Stable: post-procedure vital signs reviewed and stable Report to RN Given: handoff report given Patient transferred to: Labor and Delivery Handoff Report: Identifed the Patient, Identified the Reponsible Provider, Reviewed the pertinent medical history, Discussed the surgical course, Reviewed Intra-OP anesthesia mangement and issues during anesthesia, Set expectations for post-procedure period and Allowed opportunity for questions andacknowledgement of understanding Vitals: Vitals Value Taken Time BP 107/54 12/30/23 1148 Temp Pulse 80 12/30/23 1149 Resp 21 12/30/23 1149 SpO2 97 % 12/30/23 1149 Vitals shown include unfiled device data. Electronically Signed By: Domingo Desouza MD December 30, 2023 11:49 AM documented in this encounter Plan of Treatment Not on file documented as of this encounter Procedures Procedure Name Priority Date/Time Associated Diagnosis Comments ANE PERIPHERAL/PARAVETE BRAL BLOCK Routine 12/30/2023 11:51 AM CDT ANE SPINAL BLOCK FORM Routine 12/30/2023 9:56 AM CDT documented in this encounter Results * Peripheral/Paravertebral Block (12/30/2023 11:51 AM CDT) [...] [facility] ([place] ONLY: Pain Team Contact information: please page the Pain Team Via [employer]. Search Pain. During daytime hours, please page the attending first. At night please page the resident first. us James Love MD AR ANESTHESIA Final Result * Spinal Block (12/30/2023 9:56 AM CDT) [...] [facility] ([facility]) ONLY: Pain Team Contact information: please page the Pain Team Via [employer]. Search Pain. During daytime hours, please page the attending first. At night please page the resident first. us James Love MD AR ANESTHESIA Final Result documented in this encounter Visit Diagnoses Not on filedocumented in this encounter Administered Medications Inactive Administered Medications - up to 3 most recent administrations Medication Order MAR Action Action Date Dose Rate Site Bupivacaine 0.25% PF (Infiltration) Infiltration, ONCE PRN WITHIN 24 HRS, Starting on Fri12/30/23 at 1135, For 1 dose, Anesthesia Intra-op $Given 12/30/2023 11:35 AM CDT 20 mLs BUPivacaine 0.75% in dextrose 8.25% (intrathecal) (SENSORCAINE) 0.75-8.25 % injection Intrathecal, ONCE PRN WITHIN 24 HRS, Starting on Fri12/30/23 at 1008, For 1 dose, Anesthesia Intra-op $Given 12/30/2023 10:08 AM CDT 1.8 mLs BUPivacaine liposome (EXPAREL) 1.3 % LA inj susp Infiltration, ONCE PRN WITHIN 24 HRS, Starting on Fri12/30/23 at 1135, For 1 dose, Anesthesia Intra-op $Given 12/30/2023 11:35 AM CDT 40 mLs ceFAZolin Sodium (ANCEF) injection 2 g Routine, 2 g, Intravenous, PRE-OP/PRE-PROCEDURE, Starting on Fri12/30/23 at 0828, For 1 dose, Give no sooner than 60 minutes prior to incision., Indications: Perioperative Pharmacoprophylaxis, Pre-procedureIndications:Periop erative Pharmacoprophylaxis $Given 12/30/2023 10:15 AM CDT 2 g dexAMETHasone (DECADRON) injection Intravenous, PRN, Administer over 1 Minutes, Starting on Fri12/30/23 at 1043, Anesthesia Intra-op $Given 12/30/2023 10:43 AM CDT 4 mg dexmedeTOMIDine (PRECEDEX) 4 mcg/mL bolus Intravenous, CONTINUOUS PRN, Starting on Fri12/30/23 at 1123, Anesthesia Intra-op $New Bag 12/30/2023 11:23 AM CDT 8 mcg famotidine (PEPCID) injection Intravenous, PRN, Administer over 2 Minutes, Starting on Fri12/30/23 at 0851, Anesthesia Intra-op $Given 12/30/2023 8:51 AM CDT 20 mg fentaNYL (PF) (SUBLIMAZE) injection Intrathecal, ONCE PRN WITHIN 24 HRS, Administer over 3-5 Minutes, Starting on Fri12/30/23 at 1008, For 1 dose, Anesthesia Intra-op $Given 12/30/2023 10:08 AM CDT 15 mcg ketorolac (TORADOL) injection Intravenous, PRN, Administer over 2 Minutes, Starting on Fri12/30/23 at 1113, Anesthesia Intra-op $Given 12/30/2023 11:13 AM CDT 15 mg lactated ringers infusion Intravenous, CONTINUOUS PRN, Anesthesia Intra-op, Starting on Fri12/30/23 at 1005, Until Fri12/30/23 at 1149 $New Bag 12/30/2023 10:05 AM CDT morphine (PF) (DURAMORPH) injection Intrathecal, ONCE PRN WITHIN 24 HRS, Administer over 4-5 Minutes, Starting on Fri12/30/23 at 1008, For 1 dose, Anesthesia Intra-op $Given 12/30/2023 10:08 AM CDT 0.15 mg ondansetron (ZOFRAN) injection Intravenous, PRN, Administer over 2-5 Minutes, Starting on Fri12/30/23 at 1005, Anesthesia Intra-op $Given 12/30/2023 10:05 AM CDT 4 mg oxytocin (PITOCIN) 30 units in 500 mL 0.9% NaCl infusion 340 mL/hr, Intravenous, CONTINUOUS PRN, for hemorrhage (PPH) UNTIL bleeding subsided., Starting on Fri12/30/23 at 0828, When bleeding subsides decrease rate to 100 mL/hr. Notify provider immediately when infusion begun. Oxytocin is first line medication for PPH., Pre-procedure $New Bag 12/30/2023 1:45 PM CDT 100 mL/hr 100 mL/hr Rate/Dose Change 12/30/2023 11:26 AM CDT 100 mL/hr 100 mL /hr Rate/Dose Change 12/30/2023 11:06 AM CDT 300 mL/hr 300 mL /hr phenylephrine 0.2 mg/mL (mcg/min) drip Intravenous, CONTINUOUS PRN, Starting on Fri12/30/23 at 1012, Anesthesia Intra-op Rate/Dose Change 12/30/2023 11:06 AM CDT 40 mcg/min 12 mL/hr Rate/Dose Change 12/30/2023 10:59 AM CDT 60 mcg/min 18 mL/ hr Rate/Dose Change 12/30/2023 10:49 AM CDT 75 mcg/min 22.5 m L/hr documented in this encounter Care Teams Sewer Relationship Specialty Start Date End Date No Ref-Primary, Physician PCP - General 07/22/23 Mica Aguilar MD [address] [address] Assigned OBGYN Provider 08/31/2312/29 documented as of this encounter
--- OUTSIDE RECORDS SUMMARY | 2024-02-10 14:47 | XMS_ITS | Encounter Summary ---
Author Organization [place] Address [address] [facility] [place] [address] Care Team Providers Care Jig Mill Operator Name Role Phone No Ref-Primary, Physician Primary Care Provider Mica Aguilar MD Unavailable [phone] Encounter Details Date Type Department Care Team (Latest Contact Info) Description 12/19/2023 Travel Social History Tobacco Use Types Packs/Day [...] on filedocumented in this encounter Care Teams Jig Mill Operator Relationship Specialty Start Date End Date No Ref-Primary, Physician PCP - General 07/22/23 Mica Aguilar MD [address] [place], [place] [address] Assigned OBGYN Provider 08/31/2312/29 documented as of this encounter
--- OUTSIDE RECORDS SUMMARY | 2024-02-10 14:47 | XMS_ITS | Encounter Summary ---
Author Organization [place] Address [address] [place] [address]. 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 [address] [place] [phone] Phone: tel: Referral ID Status Reason Start Date Expiration Date Visits Re quested Visits Authorized [id number] 1 1 Encounter Details Date Type Department Care Team (Late st Contact Info) Description 12/30/2023 8:30 AM CDT Office Visit [facility] [employer] [address] [place] [phone] Angelique Donald Social History Tobacco Use Types Packs/Day Years [...] on filedocumented in this encounter Care Teams Data Science And Iot Manager Relationship Specialty Start Date End Date No Ref-Primary, Physician PCP - General 07/22/23 Mica Aguilar MD [address] [place] [address] Assigned OBGYN Provider 08/31/2312/29 documented as of this encounter
--- OUTSIDE RECORDS SUMMARY | 2024-02-10 14:47 | XMS_ITS | Encounter Summary ---
Author Organization [facility] Address [address] [place] [address]. [place] [address] Care Team Providers Care [employer] S[employer] Name Role Phone No Ref-Primary, Physician Primary Care Provider Didi Daniel MD Unavailable Reason for Visit * Auth/Cert (Routine) Specialty Diagnoses / Procedures Referred By Tami peoples Referred To Contact straight slicing machine operator 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 affected by growth restriction [O36.5990] 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 [O30.033] affected by growth restriction 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 Procedures NM W/ASSIST SPLIT NM DELIVERY ONLY NM DELIVERY+ CARE NM REMOVE CERCLAGE SUTURE SECTION REMOVAL, CERCLAGE SUTURE [facility] [address] [place] [phone] Phone: tel: Referral ID Status Reason Start Date Expiration Date Visits Re quested Visits Authorized [id number] 1 1 Encounter Details Date Type Department Care Team (Late st Contact Info) Description 12/31/2023 8:00 AM CDT Office Visit [facility] [address] [place] [phone] Angelique Donald Social History Tobacco Use [...] Help Needed Not on file 07/21 Comments No Sex and Gender Information Value Date Recorded Sex Assigned at Not on file Legal Sex Female 10:38 AM CDT Gender Identity Not on file Sexual Orientation Not on file documented as of this encounter Plan of Treatment Not on file documented as of this encounter Visit Diagnoses Not on filedocumented in this encounter Care Teams [employer] Sorter Relationship Specialty Start Date End Date No Ref-Primary, Physician PCP - General 07/22/23 Didi Daniel MD [address] [place] [id number] Assigned OBGYN Provider 12/31/23 documented as of this encounter
--- OUTSIDE RECORDS SUMMARY | 2024-02-10 14:47 | XMS_ITS | Encounter Summary ---
Author Organization [facility] Address [address] 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 Procedures WY W/ASSIST SPLIT WY DELIVERY ONLY WY DELIVERY+ CARE WY REMOVE CERCLAGE SUTURE SECTION REMOVAL, CERCLAGE SUTURE [facility] [address] [place], [place] [address] [place] [address] Phone: tel: Referral ID Status Reason Start Date Expiration Date Visits Re quested Visits Authorized [id number] 1 1 Encounter Details Date Type Department Care Team (Late st Contact Info) Description 12/30/2023 10:30 AM CDT - 12/30/2023 12:00 PM CDT Surgery [facility] [address] [facility] [place] [address] Linda Vizcarra MD [address] [facility] [address] [place] [address] SECTION Surgery Details Date/Time Status Location OR Service Patient Class Case Class Case Type Trauma Case? 12/30/2023 10:30 AM Posted UR L+D UR Z LD 02 Obstetrics Surgery Admit NEST 6 - Semi-Urge nt (within 72hrs) Panel 1 Procedure LRB Anes Op Region Wound Class Comments SECTION N/A Spinal Abdomen II-Clean Cont aminated REMOVAL, CERCLAGE SUTURE N/A Spinal Cervix I-Tristan an Surgeon Surgeon Role Service Panel Linda Vizcarra MD Primary Obstetrics 1 Antonio Goel MD Resident - Assisting Obstetrics 1 documented in this encounter Social History [...] Sign Reading Time Taken Comments Blood Pressure 113/66 12/30/2023 11:45 AM CDT Pulse 71 12/30/2023 11:45 AM CDT Temperature 36.9 C (98.4 F) 12/30/2023 8:05 AM CDT Respiratory Rate 20 12/30/2023 11:45 AM CDT Oxygen Saturation 98% 12/30/2023 11:45 AM CDT Inhaled Oxygen Concentration - - Weight - - Height - - Body Mass Index - - documented in this encounter Discharge Summaries * Bing Allen MD - 01/02/2024 9:16 AM CDT [facility] Discharge Summary Kyara Villegas Age: [age] year old Date of : 2000 Date of Admission: 12/30/2023 Date of Discharge: 10/25/24 Admitting Physician: Linda Vizcarra MD Discharge Physician: Bryan Black Admission Diagnoses: at 34w0d Monochorionic-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 cord insertion, Twin 1 Iron deficiency anemia Discharge Diagnosis: Same, now , delivered Procedures: Procedure(s): Primary low transverse section with single layer closure via Pfannenstiel skin incision Medications Prior to Admission: Medications Prior to Admission Medication Sig Dispense Refill Last Dose/Taking aspirin 81 MG EC tablet Take 81 mg by mouth daily 12/29/2023 Vit-Fe Fumarate-FA ( MULTIVITAMIN PLUS IRON) 27-1 MG TABS Take 1 tablet by mouth daily 12/29/2023 acetaminophen (TYLENOL) 325 MG tablet Take 1-2 tablets (325-650 mg) by mouth every 6 hours as needed for mild pain 30 tablet 0 Discharge Medications: Review of your medicines START taking Dose / Directions ferrous sulfate 325 (65 Fe) MG tablet Commonly known as: FEROSUL Dose: 325 mg Take 1 tablet (325 mg) by mouth daily (with breakfast). Quantity: 45 tablet Refills: 0 ibuprofen 600 MG tablet Commonly known as: ADVIL/MOTRIN Dose: 600 mg Take 1 tablet (600 mg) by mouth every 6 hours as needed for moderate pain. Quantity: 45 tablet Refills: 0 oxyCODONE 5 MG tablet Commonly known as: ROXICODONE Dose: 5 mg Take 1 tablet (5 mg) by mouth every 6 hours as needed for severe pain. Quantity: 6 tablet Refills: 0 senna-docusate 8.6-50 MG tablet Commonly known as: SENOKOT-S/PERICOLACE Dose: 1 tablet Take 1 tablet by mouth daily. Quantity: 45 tablet Refills: 0 simethicone 80 MG chewable tablet Commonly known as: MYLICON Dose: 80 mg Take 1 tablet (80 mg) by mouth every 6 hours as needed for flatulence or cramping. Quantity: 20 tablet Refills: 0 CONTINUE these medicines which may have CHANGED, or have new prescriptions. If we are uncertain of the size of tablets/capsules you have at home, strength may be listed as something that might have changed. Dose / Directions * acetaminophen 325 MG tablet Commonly known as: TYLENOL This may have changed: Another medication with the same name was added. Make sure you understand how and when to take each. Used for: Cervical shortening affecting in second trimester Dose: 325-650 mg Take 1-2 tablets (325-650 mg) by mouth every 6 hours as needed for mild pain Quantity: 30 tablet Refills: 0 * acetaminophen 325 MG tablet Commonly known as: TYLENOL This may have changed: You were already taking a medication with the same name, and this prescription was added. Make sure you understand how and when to take each. Dose: 650 mg Take 2 tablets (650 mg) by mouth every 6 hours as needed for mild pain. Quantity: 45 tablet Refills: 0 * This list has 2 medication(s) that are the same as other medications prescribed for you. Read thedirections carefully, and ask your doctor or other care provider to review them with you. CONTINUE these medicines which have NOT CHANGED Dose / Directions aspirin 81 MG EC tablet Dose: 81 mg Take 81 mg by mouth daily Refills: 0 multivitamin plus iron 27-1 MG Tabs Dose: 1 tablet Take 1 tablet by mouth daily Refills: 0 Where to get your medicines These medications were sent to [facility] [address] [address] acetaminophen 325 MG tablet ferrous sulfate 325 (65 Fe) MG tablet ibuprofen 600 MG tablet oxyCODONE 5 MG tablet senna-docusate 8.6-50 MG tablet simethicone 80 MG chewable tablet Consultations: Anesthesiology Brief Admission History: Ms. Kyara Villegas is a 23 year old now P0102 who initially presented at 34w0d with mono-ditwin for scheduled primary with cerclage removal. is notable for selective FGR and marginal cord insertion twin 1, rubella non-immunity, and s/p exam indicated Crane cerclage. . Intraoperative course The procedure was uncomplicated. EBL 864 mL. See operative report for details. Operative findings: 1. Twin 1: Viable female infant at 1037 hours on 12/30/2023. Apgars of 8 and 9 at one and five minutes. weight: pending. presentation: vertex. Twin 2: Viable female at 1038 hours on 12/30/2023, breech presentation. 2. Cord segments and cord blood collected, placenta sent to pathology 3. Placenta intact with 3 vessel cord x2 4. Normal appearing uterus, fallopian tubes, ovaries. 5. No intraabdominal adhesions. No abdominal wall adhesions 6. Crane cerclage removed at end of case intact Course The patient's hospital course was unremarkable. She recovered as anticipated and experienced no post-operative complications. On discharge, her pain was well controlled. Vaginal bleeding is similar to peak menstrual flow. Voiding without difficulty. Ambulating well and tolerating a normal diet. No fever or significant wound drainage. well. Infants are in the NICU. No bowel movement yet. She was discharged on post- day #3. Post- hemoglobin: Hemoglobin Date Value Ref Range Status 01/01/2024 10.2 (L) 11.7 - 15.7 g/dL Final Discharge Instructions and Follow-Up: Discharge diet: Regular Discharge activity: No lifting greater than 20 lbs, pushing, pulling, or other strenuous activity for 6 weeks. Pelvic rest for 6 weeks including no sexual intercourse, tampons, or douching. No driving until you can slam on the brakes without pain or while on narcotic pain medications. Discharge follow-up: Follow up with primary OB for routine visit in 6 weeks Wound care: Keep incision clean and dry Discharge Disposition: Discharged in stable condition Bing Allen MD Obstetrics & Gynecology, PGY-2 01/02/2024 9:18 AM Cosigned by Bryan Black MD at 01/02/2024 3:57 PM CDT Associated attestation - Bryan Black MD - 01/02/2024 3:57 PM CDT OBGYN Attending Attestation I, Bryan Black, personally examined and evaluated Kyara Villegas on 01/02/2024. I agree with the presentation, hospital details, and plan of care this discharge summary with edits by me. Bryan Black MD Airplane And Engine Inspector [facility] Obstetrics, Gynecology, and Women's Health 3:57 PM 01/02/2024 documented in this encounter Discharge Instructions * Discharge Instructions* Alyce Moncada, RN - 01/02/2024 9:00 AM CDT Images from the original note were not included. Warning Signs after Having a Baby Keep this paper on your fridge or somewhere else where you can see it. Call your provider if you have any of these symptoms up to 12 weeks after having your baby. Thoughts of hurting yourself or your baby Pain in your chest or trouble breathing Severe headache not helped by pain medicine Eyesight concerns (blurry vision, seeing spots or flashes of light, other changes to eyesight) Fainting, shaking or other signs of a seizure Call if you feel that it is an emergency. The symptoms below can happen to anyone after giving . They can be very serious. Call your provider if you have any of these warning signs. My provider???s phone number: Losing too much blood (hemorrhage) Call your provider if you soak through a pad in less than an hour or pass blood clots bigger than agolf ball. These may be signs that you are bleeding too much. Blood clots in the legs or lungs After you give , your body naturally clots its blood to help prevent blood loss. Sometimes this increased clotting can happen in other areas of the body, like the legs or lungs. This can block your blood flow and be very dangerous. Call your provider if you: Have a red, swollen spot on the back of your leg that is warm or painful when you touch it. Are coughing up blood. Infection Call your provider if you have any of these symptoms: Fever of 100.4 F (38 C) or higher. Pain or redness around your stitches if you had an incision. Any yellow, white, or green fluid coming from places where you had stitches or surgery. Mood Problems ( depression) Many people feel sad or have mood changes after having a baby. But for some people, these mood swings are worse. Call your provider right away if you feel so anxious or nervous that you can't care for yourself oryour baby. Preeclampsia (high blood pressure) Even if you didn't have high blood pressure when you were , you are at risk for the high blood pressure disease called preeclampsia. This risk can last up to 12 weeks after giving . Call your provider if you have: Pain on your right side under your rib cage Sudden swelling in the hands and face Remember: You know your body. If something doesn't feel right, get medical help. For informational purposes only. Not to replace the advice of your health care provider. Copyright 2020 [employer]. All rights reserved. Clinically reviewed by Sandra Avelar, RNC-OB, MSN. [employer] 726245 - Rev 05/02. El per??odo posparto: Instrucciones de cuidado-Instrucciones de cuidado : Care Instructions Instrucciones de cuidado Despu??s del parto (per??odo posparto), aden cuerpo pasa por muchos cambios. Algunos de estos cambiossuceden raúl varias semanas. Raúl las horas posteriores al parto, el cuerpo comienza a recuperarse y se prepara para el amamantamiento. Es posible que raúl raine tiempo se sienta sensible. Las hormonas pueden cambiar aden estado de ??daniel sin advertencia y sin motivo aparente. Raúl las primeras semanas despu??s del parto, muchas mujeres tienen emociones que cambian de jack a nelly. Es posible que le resulte dif??cil dormir. Es posible que llore mucho. [place] se llama melancol??a de la maternidad. Estas emociones abrumadoras suelen desaparecer dentro de unos d??as o semanas. Deanna es importante hablar con aden m??dico acerca de yaneth sentimientos. Raúl las primeras semanas despu??s del parto, es f??cil cansarse demasiado o sentirse abrumada. No jr demasiados esfuerzos. Descanse cada vez que pueda, acepte la ayuda de los dem??s, coma william y iris abundantes l??quidos. En el primer par de semanas despu??s de livan a virgin[place], es posible que aden m??dico o partera deseen verlay hacer un plan para cualquier atenci??n de seguimiento que usted pueda necesitar. Probablemente tendr?? gilles stephanie completa de posparto dentro de los primeros 3 meses despu??s del parto. En tej momento, aden m??dico o partera revisar??n aden recuperaci??n del parto. ??l o martha tambi??n donya??n c??mo est?? enfrentando usted yaneth emociones y conversar??n sobre yaneth inquietudes y preguntas. La atenci??n de seguimiento es gilles parte clave de aden tratamiento y seguridad. Aseg??rese de hacer yacudir a todas las citas, y llame a aden m??dico si est?? teniendo problemas. Tambi??n es gilles buena idea saber los resultados de yaneth ex??menes y mantener gilles lista de los medicamentos que aixa. ??C??mo puede cuidarse en el hogar? Duerma o descanse cuando aden beb?? lo jr. Si es posible, permita que yaneth familiares o yaneth amigos la ayuden con las tareas del hogar. No intente hacerlo todo usted diane. Si tiene hemorroides o hinchaz??n o dolor alrededor de la abertura de la vagina, pruebe aplicarse fr??o y calor. Puede aplicarse hielo o gilles compresa fr??a en la zuri raúl 10 a 20 minutos cada vez. P??ngase un pa??o hollingsworth entre el hielo y la piel. Adem??s, trate de sentarse en algunos cent??metros de agua tibia (ba??o de asiento) 3 veces al d??a y despu??s de las evacuaciones. Orbisonia los analg??sicos (medicamentos para el dolor) exactamente seg??n las indicaciones. Si el m??dico le recet?? un analg??sico, t??sarmiento seg??n las indicaciones. Si no est?? tomando un analg??sico recetado, preg??ntele a aden m??dico si puede jessiac dillon de venta maxime. Coma m??s fibra para evitar el estre??imiento. Incluya alimentos hood panes y cereales integrales, verduras crudas, frutas crudas y secas, y frijoles (habichuelas). Iris mucho l??quido. Si tiene gilles enfermedad renal, card??umu o hep??nichelle y tiene que restringir los l??quidos, hable con aden m??dico antes de aumentar la cantidad de l??quido que rosalee. No se lave el interior de la vagina con l??quidos (lavados vaginales). Si tiene puntos de sutura, mantenga la zuri limpia con agua tibia, ya sea ech??ndola o stevenson??ndola sobre la zuri externa de la vagina y el ano despu??s de usar el ba??o. Lleve gilles lista de preguntas para hacerle a aden m??dico o partera. Yaneth preguntas podr??an ser acercade lo siguiente: Cambios en los senos, ohod bultos o sensibilidad. Cu??ndo esperar que regrese aden per??odo menstrual. Qu?? forma de anticoncepci??n es la m??s adecuada para usted. El peso que aument?? raúl el embarazo. Las opciones de ejercicio. Qu?? alimentos y bebidas son mejores para usted, sobre todo si est?? amamantando. Problemas que podr??a tener con la lactancia. Cu??ndo puede tener relaciones sexuales. Algunas mujeres kyle vez quieran hablar sobre lubricantes vaginales. Cualquier sentimiento de tristeza o inquietud que tenga. ??Cu??ndo debe pedir ayuda? Comparta esta informaci??n con aden rita, aden abisai o gilles amiga. Pueden ayudarla a prestar atenci??n a las se??ales de advertencia. Llame al 911 en cualquier momento que considere que necesita atenci??n de urgencia. Por ejemplo, llame si: Tiene pensamientos de lastimarse o de hacerle da??o a aden beb?? o a otra persona. Se desmay?? (perdi?? el conocimiento). Tiene dolor en el pecho, le falta el aire o tose toro. Tiene convulsiones. D??nde obtener ayuda las 24 horas del d??a, los 7 d??as de la semana Si usted o alguien que conoce habla de suicidio, autolesionarse, gilles crisis de kel mental, gilles crisis por consumo de sustancias o cualquier otro tipo de malestar ps??quico, obtenga ayuda de inmediato. Usted puede: Marcar [phone] para llamar a la l??rosie de prevenci??n del suicidio y crisis. Llamar al [phone] ( ). Enviar un mensaje de texto que diga HOME al [id number] para acceder a la l??rosie de mensajes de texto encasos de crisis. Considere guardar estos n??meros en aden tel??fono. Visite [email or web address] para obtener m??s informaci??n o conversar en l??rosie. Llame a aden m??dico ahora mismo o busque atenci??n m??dica de inmediato si: Tiene se??ales de hemorragia (sangrado excesivo), hood: Sangrado vaginal intenso. [place] significa que est?? empapando gilles o m??s toallas sanitarias en gilles hora. O expulsa co??gulos de toro m??s grandes que un huevo. Se siente mareada o aturdida, o siente hood si se fuera a desmayar. Se siente santos cansada o d??patrick que no puede hacer yaneth actividades habituales. Latidos card??acos acelerados o irregulares. Dolor abdominal nuevo o m??s intenso. Tiene se??ales de infecci??n, tales hood: Fiebre. Micci??n frecuente o dolorosa o toro en la orina. Secreci??n vaginal con olor desagradable. Dolor abdominal nuevo o m??s intenso. Tiene s??ntomas de un co??gulo de toro en la pierna (llamado trombosis venosa profunda), tales hood: Dolor en la pantorrilla, la parte posterior de la rodilla, el muslo o la presley. Hinchaz??n en la pierna o la presley. Un cambio de color en la pierna o la presley. La piel podr??a estar enrojecida o morada, seg??n cu??lsea aden color de piel normal. Tiene se??ales de preeclampsia, tales hood: Hinchaz??n repentina de la tony, las fermin o los pies. Nuevos problemas de la vista (hood oscurecimiento, donya borroso o donya puntos). Dolor de ernie intenso. Tiene se??ales de insuficiencia card??umu, tales hood: Nueva o mayor falta de aire. Nueva o mayor hinchaz??n en las piernas, los tobillos o los pies. Aumento repentino de peso, hood m??s de 2 o 3 libras (0.9 kg o 1.4 kg) en un d??a o 5 libras (2.3 kg) en gilles semana. Se siente santos cansada o d??patrick que no puede hacer yaneth actividades habituales. Se someti?? a un alivio del dolor raqu??sergey o epidural y tiene: Dolor de espalda nuevo o peor. Aumento del dolor, la hinchaz??n, la temperatura o el enrojecimiento en el lugar de la inyecci??n. Hormigueo, debilidad o entumecimiento en las piernas o la presley. Preste especial atenci??n a los cambios en aden kel y aseg??rese de comunicarse con aden m??dico si: El sangrado vaginal no disminuye. Siente tristeza, ansiedad o desesperanza raúl m??s de algunos d??as. Tiene problemas con los senos o el amamantamiento. ??D??nde puede encontrar m??s informaci??n en ingl??s? Maggi a [email or web address] Escriba [email or web address] en la b??squeda para aprender m??s acerca de El per??odo posparto: Instrucciones de cuidado-Instrucciones de cuidado. Revisado: 2022 Versi??n del contenido: 14.2 ?? 2023 [facility] [employer], [facility]. Las instrucciones de cuidado fueron adaptadas bajo licencia por aden profesional de atenci??n m??dica. Si usted tiene preguntas sobre gilles afecci??n m??dica o sobre estas instrucciones, siempre preguntea aden profesional de kel. [employer] niega toda garant??a o responsabilidad por aden uso de esta informaci??n. documented in this [...] needed for severe pain. 6 tablet 01/02/2024 4 documented as of this encounter Progress Notes * Bing Allen MD - 01/02/2024 9:15 AM CDT [facility] Post- Progress Note Name: Kyara Villegas S: Kyara is feeling well this morning. Her pain is well controlled on oral pain medications. She ispassing gas and her abdominal pain has improved. She is ambulating without lightheadedness or dizziness. She is tolerating PO intake without nausea or vomiting. She is voiding spontaneously. Lochia is minimal. No headaches, vision changes, chest pain, shortness of breath, or RUQ pain. Pumping for babies in the NICU. O: Patient Vitals for the past 24 hrs: BP Temp Temp src Pulse Resp 01/01/24 1935 109/67 98.3 ??F (36.8 ??C) Oral -- 17 01/01/24 1216 107/63 98.9 ??F (37.2 ??C) Oral 84 16 01/01/24 0253 111/63 97.8 ??F (36.6 ??C) Oral 80 16 Gen: Resting comfortably, NAD CV: RR, well perfused Pulm: Non-labored breathing on room air Abd: Soft, increased fundal tenderness, voluntary guarding, no rebound tenderness. Incision: dressing in place with no shadowing Ext: non-tender, trace edema to bilateral lower extremities No intake/output data recorded. Assessment/Plan: Kyara Villegas 23 year old on POD #3 s/p PLTCS and cerclage removal in setting of monochroionic diamniotic twins. Meeting goals for discharge. # management Pain: Well-controlled with ibuprofen, tylenol, and oxycodone PRN GI: PRN bowel regimen, anti-emetics : Voiding spontaneously Hgb: 11.7>EBL 864> 9.6. Asymptomatic from acute blood loss anemia; will discharge with oral iron Rh: Positive Rubella: nonimmune, MMR prior to discharge Feed: Pumping for babies in NICU Infants: Stable in NICU BC: Declines while in hospital PPx: Encourage ambulation, IS, SCDs while confined to bed #Abdominal / fundal tenderness (resolved) - No leukocytosis; afebrile, w/ normal VS - suspect gas pain, encouraged simethicone and ambulation - Tenderness resolved Medically Ready for Discharge: Anticipated Today Bing Allen MD Obstetrics & Gynecology, PGY-2 01/02/2024 9:16 AM Cosigned by Bryan Black MD at 01/02/2024 3:57 PM CDT Associated attestation - Bryan Black MD - 01/02/2024 3:57 PM CDT OBGYN Attending Attestation Ms. Kyara Villegas was seen and examined by me separately from the team. I have reviewed and agree with the above note by Dr. Allen. I personally reviewed the following and kaplan findings are: POD#3 from PLTCS at 34w0d for monochorionic diamniotic twin gestational. Vitals normal. Exam reassuring. I agree with the plan for discharge. Bryan Black MD [employer] And [employer] [facility] Obstetrics, Gynecology, and Women's Health 3:56 PM 01/02/2024 * Kirit Abreu MD - 01/01/2024 7:02 AM CDT Post Anesthesia Follow Up Note Patient: Kyara Villegas Patient location: floor. Chief complaint: Acute postoperative pain management s/p intrathecal analgesic administration Procedure(s) Performed: Procedure(s): SECTION REMOVAL, CERCLAGE SUTURE Anesthesia type: Spinal Block Subjective: Pain Control: Adequate Additional ROS: She denies weakness, denies paresthesia, denies difficulties breathing or voiding, denies nausea orvomiting, and denies headache. She does not complain of pruritis at this time. She is able to ambulate. Objective: Respiratory Function (RR / SpO2 / Airway Patency): Satisfactory Cardiac Function (HR / Rhythm / BP): Satisfactory Strength and sensation lower extremities: Normal Site of spinal/epidural insertion: No signs of infection or inflammation. Last Vitals: BP 107/63 (BP Location: Left arm, Patient Position: Semi-Diego's, Cuff Size: Adult Regular) Pulse 84 Temp 37.2 ??C (98.9 ??F) (Oral) Resp 16 LMP 04/29/2023 (Approximate) SpO2 99% Unknown Assessment and plan: Kyara Villegas is a 23 year old female POD #2 s/p with IT bupivacaine, fentanyl and morphine; and single shot TAP nerve block injections. Pt is ambulating without difficulty, no weakness or paresthesias. There is no evidence of adverse side effects associated with spinal and nerve block injections. The patient is receiving adequate incisional pain control at this time and anticipate up to 72 hours of incisional pain control. However, we further anticipate that the patient will require opioid/nonopioid analgesics for visceral and muscle pain that is not controlled with local anesthetic. In brief summary, her post-operative analgesia is adequate today. Further interventional analgesic strategies would be of little utility at this time. Thus, we recommend proceeding with PO analgesics. Thank you for including us in the care for this patient. Kirit Abreu MD Director Of Donor Relations, [place]-2, PGY-3 Cosigned by Rashaun Drummond MD at 01/02/2024 3:37 PM CDT Associated attestation - Rashaun Drummond MD - 01/02/2024 3:37 PM CDT Physician Attestation I agree with the information in this note. Rashaun Drummond MD * Moriah Finney MD - 01/01/2024 6:44 AM CDT [facility] Post- Progress Note Name: Kyara Villegas *Patient seen with in-person nylon operator* S: Kyara is feeling okay this morning. Her pain did worsen yesterday. Endorses chills overnight, denies subjective fever; but no chills this morning. She is ambulating without lightheadedness or dizziness. She is tolerating PO intake without nausea or vomiting. She is voiding spontaneously and has passed flatus and had a BM. Lochia is minimal. Lochia is minimal. Pumping for babies in NICU. O: Patient Vitals for the past 24 hrs: BP Temp Temp src Pulse Resp SpO2 01/01/24 0253 111/63 97.8 ??F (36.6 ??C) Oral 80 16 -- 12/31/23 1804 104/63 98.8 ??F (37.1 ??C) Oral 73 16 -- 12/31/23 0806 114/69 98.8 ??F (37.1 ??C) Oral 71 16 99 % Gen: Resting comfortably, NAD CV: RR, well perfused Pulm: Non-labored breathing on room air Abd: Soft, increased fundal tenderness, voluntary guarding, no rebound tenderness. Incision: dressing in place with no shadowing Ext: non-tender, trace edema to bilateral lower extremities I/O last 3 completed shifts: In: - Out: 800 [Urine:800] Assessment/Plan: Kyara Villegas 23 year old on POD #2 s/p PLTCS and cerclage removal in setting of monochroionic diamniotic twins. Patient with new, significant fundal tenderness and chills overnight.CBC ordered for this morning, pending results will consider treating for post endometritis. Discussed this with patient, and she is okay with this plan. Recommended to remove dressing today, RN communication sent to assist. # management Pain: Well-controlled with ibuprofen, tylenol, and oxycodone PRN GI: PRN bowel regimen, anti-emetics : Voiding spontaneously Hgb: 11.7>EBL 864> 9.6. Asymptomatic from acute blood loss anemia; will discharge with oral iron Rh: Positive Rubella: nonimmune, MMR prior to discharge Feed: Pumping for babies in NICU Infants: Stable in NICU BC: Declines while in hospital PPx: Encourage ambulation, IS, SCDs while confined to bed #Fundal tenderness c/f PP endometritis - STAT CBC ordered; afebrile, w/ normal VS - IV Gent/clinda x 24h if indicated Medically Ready for Discharge: Anticipated Tomorrow vs following day Monisha Valentin MD Obstetrics and Gynecology, PGY-2 01/01/24 6:47 AM OBGYN Attending Attestation Kyara Villegas was seen and examined by me separately from the team. I have reviewed and agree with the above note by Dr. Valentin. I personally reviewed the following and kaplan findings are: POD#2 from scheduled PLTCS and cerclage removal at 34w0d for mono-di twin . Vitals normal. course notable for increased fundal tenderness today. WBC is normal at 9.2 and patient is afebrile and otherwise asymptomatic. Will monitor temparature and symptoms closely. Patient feels pain is worsened with gas pain as entire upper abdomen is tender. Now passing flatus. Encouraged ambulation and simethicone. If any fevers or pain is worsened, or patient notes subjective fevers/chills, will consider starting antibiotics for presumed endometritis. Moriah Finney MD [facility], Draw Bench Operator 01/01/2024 10:01 AM * Sridevi Landry MD - 12/31/2023 8:29 AM CDT [facility] Post- Progress Note Name: Kyara Villegas S: Kyara is feeling well this morning. Denies pain. She is ambulating without lightheadedness or dizziness. She is tolerating PO intake without nausea or vomiting. She is voiding spontaneously and has passed flatus. Lochia is minimal. Pumping for babies in NICU. O: Patient Vitals for the past 24 hrs: BP Temp Temp src Pulse Resp SpO2 12/31/23 0806 114/69 98.8 ??F (37.1 ??C) Oral 71 16 99 % 12/31/23 0400 104/65 98.4 ??F (36.9 ??C) Oral -- 17 100 % 12/31/23 0000 107/71 98.6 ??F (37 ??C) Oral 87 17 98 % 12/30/23 1845 112/76 98.5 ??F (36.9 ??C) Oral -- 15 100 % 12/30/23 1735 110/79 98.5 ??F (36.9 ??C) Oral -- 16 99 % 12/30/23 1635 114/71 98.2 ??F (36.8 ??C) Oral -- 18 98 % 12/30/23 1538 108/77 98.2 ??F (36.8 ??C) Oral -- 17 98 % 12/30/23 1450 117/72 98.3 ??F (36.8 ??C) Oral -- 18 98 % 12/30/23 1345 115/81 -- -- 66 20 98 % 12/30/23 1330 109/72 -- -- 78 16 98 % 12/30/23 1315 111/68 -- -- 66 19 -- 12/30/23 1300 111/65 -- -- 66 20 98 % 12/30/23 1245 110/67 -- -- 70 19 98 % 12/30/23 1230 108/72 -- -- 67 19 99 % 12/30/23 1215 107/65 -- -- 69 16 97 % 12/30/23 1202 105/61 98.2 ??F (36.8 ??C) Oral 70 23 98 % 12/30/23 1145 113/66 -- -- 71 20 98 % 12/30/23 1130 114/54 -- -- -- 18 98 % Gen: Resting comfortably, NAD CV: RR, well perfused Pulm: Non-labored breathing on room air Abd: Soft, appropriately ttp, non-distended.Fundus at firm at umbilicus, firm and non-tender. Incision: Covered by clean dressing, no shadowing. Ext: non-tender, trace edema to bilateral lower extremities I/O last 3 completed shifts: In: 824.5 [I.V.:824.5] Out: 1764 [Urine:900; Blood:864] Assessment/Plan: Kyara Villegas 23 year old on POD #1 s/p PLTCS and cerclage removal in setting of monochroionic diamniotic twins. Meeting early post operative goals. # management Pain: Well-controlled with ibuprofen, tylenol, and oxycodone PRN GI: PRN bowel regimen, anti-emetics : Voiding spontaneously Hgb: 11.7>EBL 864> Hemoglobin Date Value Ref Range Status 12/31/2023 9.6 (L) 11.7 - 15.7 g/dL Final Asymptomatic from acute blood loss anemia; will discharge with oral iron Rh: Positive Rubella: nonimmune, MMR prior to discharge Feed: Pumping for babies in NICU Infants: Stable in NICU BC: Declines while in hospital PPx: Encourage ambulation, IS, SCDs while confined to bed Medically Ready for Discharge: Anticipated Tomorrow or POD#3 Monisha Valentin MD Obstetrics and Gynecology, PGY-2 12/31/23 8:32 AM [facility] staff: Appreciate note by Dr. Valentin. I have seen and examined the patient without the resident. I have reviewed, edited, and agree with the note. Sridevi Landry MD, FACOG 12/31/2023 9:26 AM documented in this encounter H&P Notes * Linda Vizcarra MD - 12/30/2023 8:58 AM CDT OB HISTORY AND PHYSICAL Patient: Kyara Villegas Date of : 2000 HPI: Kyara Villegas is a 23 year old at 33w6d by 10w3d US with mono-di twin who presents today for scheduled primary section and cerclage removal in the setting of selective growth restriction of twin 1. additionally notable for rubella NI, cervical shortneing s/p Crane cerclage, marginal cord insertion twin 1, and Fe deficient anemia on PO iron supplementation. On presentation reports feeling overall well without new health concerns. She reports good movement x2. Denies LOF, vaginal bleeding, or contractions. She denies fever, chills, headache, vision changes, SOB, chest pain, palpitations, nausea, emesis, RUQ pain, epigastric pain, dysuria, change in vaginal discharge, LE swelling/tenderness. notable for: - Monochorionic-diamniotic twin - Cervical shortening with dilation s/p exam-indicated Crane cerclage placement (09/28/23) - Selective FGR twin 1 - Marginal cord insertion twin 1 - Fe deficient anemia (PO Fe) - Rubella NI This is her first and she has no additional obstetric history. No history of asthma or high blood pressure. No prior abdominal or pelvic surgeries. No known personral or family history of bleeding or clotting disorders. OBGYN History: - - Last Pap: Unsure, due - STI Hx: Denies - Sexually active: Yes - Supply Chain Consultant surgeries: Denies Lab Results: Lab Results Component Value Date HCT 30.5 09/26/2023 HGB 10.3 09/26/2023 Patient Active Problem List Diagnosis Date Noted 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 12/30/2023 Priority: Medium affected by growth restriction 12/30/2023 Priority: Medium Cervical shortening affecting in second trimester 09/26/2023 Priority: Medium HISTORY History reviewed. No pertinent past medical history. Past Surgical History: Procedure Laterality Date CERCLAGE CERVICAL N/A 09/27/2023 Procedure: Cerclage cervical; Surgeon: Heidi Swain MD; Location: [facility] History reviewed. No pertinent family history. Social History Tobacco Use Smoking status: Never Passive exposure: Never Smokeless tobacco: Never Substance Use Topics Alcohol use: Not Currently Drug use: Never Medications Prior to Admission Medication Sig Dispense Refill Last Dose aspirin 81 MG EC tablet Take 81 mg by mouth daily 12/29/2023 Vit-Fe Fumarate-FA ( MULTIVITAMIN PLUS IRON) 27-1 MG TABS Take 1 tablet by mouth daily 12/29/2023 acetaminophen (TYLENOL) 325 MG tablet Take 1-2 tablets (325-650 mg) by mouth every 6 hours as needed for mild pain 30 tablet 0 No Known Allergies REVIEW OF SYSTEMS: A 10 point review of systems was completed and was negative other than as noted in the HPI. PHYSICAL EXAM Patient Vitals for the past 24 hrs: BP Temp Temp src Resp 12/30/23 0805 102/58 98.4 ??F (36.9 ??C) Oral 18 Gen: Well-appearing, no acute distress, resting comfortably in triage bed CV: RRR, nl S1/S2, no murmurs/clicks/gallops Lungs: CTAB, non-labored breathing Abd: Gravid, non-tender, non-distended Ext: 1+ peripheral extremity edema Cervix: Deferred Membranes: Intact Presentation: Twin 1 R maternal cephalic, twin 2 breech Estimated Weight: 4#, 4# FHT: Monitoring External FHT Twin 1: Baseline 135 bpm; moderate variability; accels present; no decelerations FHT Twin 2: Baseline 140 bpm; moderate variability; accels present; no decelerations TOCO 0-1 contractions in 10 minutes Studies: T&S, CBC, RPR Assessment & Plan: 23 year old at 34w0d with mono-di twin , here for scheduled primary section with cerclage removal. is notable for selective FGR and marginal cord insertion twin 1, rubella non- immunity, and s/p exam indicated Crane cerclage. . # Scheduled Primary Section - Admitted to L&D - Indication: Rutherford-di twins, selective FGR twin 1 - Consent obtained: The risks, benefits, and alternatives of section were discussed, including the risks of bleeding, infection, injury to surrounding organs, injury, and remote risks of hysterectomy. She consented to a blood transfusion in the event of a life threatening amount of bl eeding. She had time to ask questions and agreed to proceed. Surgical consent was signed. Blood transfusion consent signed. - Labs: CBC, T&S - Fen/GI: NPO, IVFs, Downing. - Pain: Spinal per anesthesia. - ID: Ancef for carole-op antibiotics. - PPX: SCDs prior to surgery # Cervical insufficiency # Crane cerclage - Exam-indicated cerclage in place since 09/28/2023 after progressing to 1cm cervical dilation with TVUS showing cervical shortening - Plan for intraoperative cerclage removal today - Recommend serial cervical lengths in next , # Fe deficient anemia - Taking PO iron supplementation - Hgb 11.7 on admission - Hold [employer] PO Fe on admission # PNC - Rh positive, GCT nml - GBS unknown - collect on admission - Rubella non-immune -- MMR vaccine prior to discharge - Other labs wnl - Imaging: placenta anterior with thin dividing membrane - S/p TDaP - Pap last: Unknown, needs Pap - Contraception: To discuss - Feeding: Plans breast # FWB: # Monochorionic-Diamniotic twin # Selective FGR twin 1 - NST reactive x2 on admission - NICU for delivery - Intrauterine resuscitative measures prn # PPH Risk: - Medium (IOL, augment with pit, HTN, mag, triple III, prolonged labor, precipitous labor/delivery,h/o abruption, >5 deliveries, fibroids, large baby, poly, multiples, general anesthesia, shoulder dystocia, lacs/epis, op delivery, hematoma)- IV, type and screen Patient discussed with Dr. Carmita Goel MD Obstetrics & Gynecology, PGY-2 12/30/2023 9:[address] Goel's note above, patient also seen and examined by me. I agree with the note above. Linda Vizcarra MD documented in this encounter Consult Notes * Arabella Fragoso MSW - 12/31/2023 1:36 PM CDT *Copied From babys Chart Social Work Initial Consult General Information Assessment completed with: Pita Type of visit: Initial Assessment Reason for Consult: NICU Admission This is Pita's first set of twins and they had twin girls they decided to name Genie Castellanos. Both parents report twins were a surprise, but are very excited for their baby girls and report a great support system back at home and feel well support to welcome their twins home whenthey are medically ready to discharge from the NICU. Kyara reports that she is in a bit of pain from her but report it is being well managed. Communication Assessment: Spoken language-Namibian, nylon operator was utilized during initial assessment. Living Environment: Kyara reports she resides with her Ludwin and her additional family members that include her 3 sisters. Kyara reports they reside an hour away in [place], [place]. Family/support Factors Kyara reports she has a robust support system that includes her large family as well as her . Community Resources: Current Resources: Kyara reports she has recently applied for WIC. Kyara reports that her and her family do not utilize any additional benefits through the [facility]. Kyara and Ludwin report both havingadequate baby supplies which includes a crib and car seat for both babies. Kyara reports needing noadditional resources at this time. SW provided monthly parking pass to family per their request. 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 Kyara and Ludwin report no immediate financial concerns. Mental health Status: SW facilitated conversation around mental health with Kyara. Kyara reports no previous mental health diagnosis and has no concerns about PPD/Anxiety. SW discussed symptoms and how they present themselves and when to seek out resources. SW will continue to provide mental health support as needed during NICU admission. Additional Information: SW discussed NICU visitor policy with family and they were aware of guidelines and expectations already. SW also discussed rooming in on the 11th floor with babies when Kyara gets discharged from [facility]. Kyara was concerned about it being uncomfortable and not having enough space to sleep on the 11th floor and inquired about additional sleeping areas in the hospital. Kyara requested to stay on [facility]. SW informed Kyara that [facility] would not be an option when she is medically ready for discharge and her babies room would be the only place to reside if she wanted to stay in the hospital. Kyara understood.Kyara expressed interest in not wanting to leave her babies and reports she will plan to make the room on the 11th floor work. INTERVENTION Conducted chart review. Introduced SW role and scope of practice. Orientation to the unit (parking, lodging, meals, visitation) Provided assessment of patient and family's level of coping Conducted psychosocial assessment Validated emotions and provided supportive listening Provided [facility] resources and referrals parking pass Provided SW contact info PLAN SW will continue to follow for supportive intervention. BECKY Ho, [facility] Maternal and Child Health [employer] Office: [phone] After Hours Pager: [phone] [email or web address] documented in this encounter Miscellaneous Notes * Plan of Care - Alyce Moncada RN - 01/02/2024 9:35 AM CDT Data: Vital signs stable, assessments within normal limits. Eating and drinking without nausea or vomiting. Up ad daiyl, and voiding without difficulty. Passing gas/BM. Pumping, Twins in the NICU Pain managed with tylenol and ibuprofen. Pt states she is comfortable. Incision appears to be healing well, no s/s infection. Discharge outcomes on care plan met. Action: Review of care plan, teaching, and discharge instructions done. Discharge medications provided, Pt verified they are correct/matched name, verbalized understanding of administration instructions. Response: Patient states understanding and comfort with her discharge instructions, discharge medications, and plan of care. All questions addressed. She will discharge home. * Plan of Care - Linda Lopez RN - 01/02/2024 5:12 AM CDT Goal Outcome Evaluation: Plan of Care Reviewed With: patient Overall Patient Progress: improvingOverall Patient Progress: improving Data: Vital signs and checks WDL Patient eating and drinking normally. Patient able to empty bladder independently and is up ambulating. Patient performing self cares and is able to visit in NICU. Pumping independently. Action: Patient medicated during the shift for pain with Tylenol and Ibuprofen with relief after 1 hour. Patient education done see education record. Response: Positive attachment behaviors observed with infant. Support persons present. Plan: Continue with the plan of care. Possible discharge today. * Plan of Care - Yanet Vásquez RN - 01/01/2024 1:53 PM CDT Goal Outcome Evaluation: Plan of Care Reviewed With: patient, spouse Overall Patient Progress: improvingOverall Patient Progress: improving VSS. Pt had increased abdominal pain after eating breakfast this morning, rated pain 8/10. This pain improved with ambulation, mylicon & oxycodone. Pt able to nap for a couple hours in the later morning. Pt plans to shower this afternoon & remove dressing in shower. Pt denies pain now, continues to take scheduled ibuprofen & tylenol. Pt pumping independently. & mom here, both very supportive. * Plan of Care - Tomasa Granados RN - 01/01/2024 4:03 AM CDT Goal Outcome Evaluation: Plan of Care Reviewed With: patient, spouse Overall Patient Progress: improvingOverall Patient Progress: improving Shift: [id number]: Shift handoff report received from FLAKITA Bills. from 12/30/23. Vital signs stable. Uterus at midline. Lochia scant rubra, blood clots absent present. Kyara Villegas voiding spontaneously without difficulty, up ad daily, eating and drinking without nausea. Incision site covered in dry gauze dressing, no signs or symptoms of infection. Patient encouraged to take a shower in the morning to remove the dressing; she states understanding and agrees to plan of care. Pumping with no assistance. Taking acetaminophen, ibuprofen, and oxycodone for incision pain; simethicone and bisacodyl for abdominal gas discomfort and constipation. Kyara Villegas reports poor gas and constipation pain management. Patient states i ncision pain management adequate. Plan of care reviewed with patient, Pt is agreeable with her plan of care. Support persons present.Anticipate discharge 01/02/24. Problem: Adult Inpatient Plan of Care Goal: Patient-Specific Goal (Individualized) Description: You can add care plan individualizations to a care plan. Examples of Individualizationmight be: Parent requests to be called daily at 9am for status, I have a hard time hearing out of my right ear, or Do not touch me to wake me up as it startles me. Outcome: Not Progressing Flowsheets (Taken 01/01/2024 0400) Individualized Care Needs: assembly line inspector needed, promote double breast pump use every 2-3 hours Anxieties, Fears or Concerns: pain control, bowel movement Patient/Family-Specific Goals (Include Timeframe): pain level 4 out of 10 after interventions, havebowel movement prior to discharge Goal: Optimal Comfort and Wellbeing Outcome: Not Progressing Intervention: Monitor Pain and Promote Comfort Recent Flowsheet Documentation Taken 01/01/2024 030 by Tomasa Granados RN Pain Management Interventions: heat applied Taken 01/01/2024244 by Tomasa Granados RN Pain Management Interventions: (heat offered and refused) other (see comments) Taken 01/01/2024202 by Tomasa Granados RN Pain Management Interventions: (heat offered and refused) medication (see MAR) other (see comments) pillow support provided relaxation techniques promoted rest breathing exercises care clustered Intervention: Provide Person-Centered Care Recent Flowsheet Documentation Taken 01/01/2024202 by Tomasa Granados RN Trust Relationship/Rapport: care explained choices provided Problem: ( Delivery) Goal: Effective Bowel Elimination Outcome: Not Progressing Intervention: Enhance Bowel Motility and Elimination Recent Flowsheet Documentation Taken 01/01/2024202 by Tomasa Granados RN Bowel Motility Enhancement: ambulation promoted fluid intake encouraged Bowel Elimination Promotion: adequate fluid intake promoted ambulation promoted Goal: Optimal Pain Control and Function Outcome: Not Progressing Intervention: Prevent or Manage Pain Recent Flowsheet Documentation Taken 01/01/2024 030 by Tomasa Granados RN Pain Management Interventions: heat applied Taken 01/01/2024244 by Tomasa Granados RN Pain Management Interventions: (heat offered and refused) other (see comments) Taken 01/01/2024202 by Tomasa Granados RN Pain Management Interventions: (heat offered and refused) medication (see MAR) other (see comments) pillow support provided relaxation techniques promoted rest breathing exercises care clustered Perineal Care: absorbent brief/pad changed perineum cleansed Problem: Adult Inpatient Plan of Care Goal: Plan of Care Review Description: The Plan of Care Review/Shift note should be completed every shift. The Outcome Evaluation is a brief statement about your assessment that the patient is improving, declining, or no change. This information will be displayed automatically on your shift note. 01/01/2024402 by Tomasa Granados RN Flowsheets (Taken 01/01/2024402) Outcome Evaluation: gas pain in upper abdomen 9 out of 10, patient agreed to rectal suppository 01/01/2024399 by Tomasa Granados RN Outcome: Progressing Flowsheets (Taken 01/01/2024399) Plan of Care Reviewed With: patient spouse Overall Patient Progress: improving Goal: Absence of Hospital-Acquired Illness or Injury Outcome: Progressing Intervention: Prevent Skin Injury Recent Flowsheet Documentation Taken 01/01/2024202 by Tomasa Granados RN Body Position: position changed independently Intervention: Prevent and Manage VTE (Venous Thromboembolism) Risk Recent Flowsheet Documentation Taken 01/01/2024202 by Tomasa Granados RN VTE Prevention/Management: (up ad daily) SCDs off (sequential compression devices) Intervention: Prevent Infection Recent Flowsheet Documentation Taken 01/01/2024202 by Tomasa Granados RN Infection Prevention: equipment surfaces disinfected hand hygiene promoted personal protective equipment utilized rest/sleep promoted Goal: Readiness for Transition of Care Outcome: Progressing Problem: ( Delivery) Goal: Successful Parent Role Transition Outcome: Progressing Intervention: Support Parent Role Transition Recent Flowsheet Documentation Taken 01/01/2024202 by Tomasa Granados RN Supportive Measures: active listening utilized decision-making supported goal-setting facilitated positive reinforcement provided relaxation techniques promoted self-care encouraged verbalization of feelings encouraged Parent-Child Attachment Promotion: parent/caregiver presence encouraged participation in care promoted interaction encouraged Goal: Hemostasis Outcome: Progressing Goal: Absence of Infection Signs and Symptoms Outcome: Progressing Intervention: Prevent or Manage Infection Recent Flowsheet Documentation Taken 01/01/2024202 by Tomasa Granados RN Infection Management: aseptic technique maintained Problem: ( Delivery) Goal: Fluid and Electrolyte Balance Outcome: Met Goal: Effective Oxygenation and Ventilation Outcome: Met Tomasa Granados RN on 01/01/2024 at 4:04 AM Kyara Villegas states that she had a bowel movement after the suppository and has no pain at this time. Tomasa Granados RN on 01/01/2024 at 6:11 AM * Plan of Care - Negar Arora RN - 12/31/2023 10:47 PM CDT Goal Outcome Evaluation: Plan of Care Reviewed With: patient, spouse Overall Patient Progress: improvingOverall Patient Progress: improving Outcome Evaluation: improving but having gas pain, miralax added to bowel regimen Data: Vital signs within normal limits. checks within normal limits - see flow record. Patient eating and drinking normally. Patient able to empty bladder independently and is up ambulating. Passing small amounts of gas and having gas pain - simethicone, senna and miralax given. Ambulation encouraged. No apparent signs of infection. Incision healing well - dressing in place and CDI. Patient performing self cares with minimal assist from spouse. Action: Patient medicated during the shift for pain. See MAR. Patient reassessed within 1 hour after each medication and pain was improved - patient stated she was comfortable. Patient education doneabout pumping, ambulation to encourage bowel function. Take Away Worker via phone used for all interactions. See flow record. Response: Positive attachment behaviors observed with . Support persons Ludwin present. Plan: Anticipate discharge on 12/31-01/01. * Plan of Care - Yanet Vásquez RN - 12/31/2023 3:54 PM CDT Goal Outcome Evaluation: Plan of Care Reviewed With: patient Overall Patient Progress: improvingOverall Patient Progress: improving VSS. Pt up in room independently. Pt able to void & empty w/o difficulty since downing removal. Pt c/o gas pain, mylicon given & encouraged ambulation. Pt taking scheduled ibuprofen & tylenol, also took oxycodone this afternoon for worsening incisional pain. Family here & very supportive. Pt visiting baby in NICU now. * Note - Ayse Zendejas RNC - 12/31/2023 8:51 AM CDT This note was copied from a baby's chart. Admission Note Baby Information: 's first name: Sean (A) and Emanuel (B) medical history: 34+0 Take Away Worker needed? Yes; language needed: Namibian goal (if known): Breastfeed/ combo feed for a few months history: First babies Mother's Information: Name: Kyara Occupation: Age: 23 Delivery type: Margaret: [place] (an hour away) Pump for home use: recommend [employer] Partner's name: Ludwin Occupation: Relevant maternal medical and social hx: Information for the patient's mother: Kyara Alvarez [[id number]] History reviewed. No pertinent past medical history., Information for the patient's mother: Kyara Alvarez [[id number]] Patient Active Problem List Diagnosis Cervical shortening affecting in second trimester 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 affected by growth restriction , and Information for the patient's mother: Kyara Alvarez [[id number]] Medications Prior to Admission Medication Sig Dispense Refill Last Dose/Taking aspirin 81 MG EC tablet Take 81 mg by mouth daily 12/29/2023 Vit-Fe Fumarate-FA ( MULTIVITAMIN PLUS IRON) 27-1 MG TABS Take 1 tablet by mouth daily 12/29/2023 acetaminophen (TYLENOL) 325 MG tablet Take 1-2 tablets (325-650 mg) by mouth every 6 hours as needed for mild pain 30 tablet 0 Relevant maternal medications: Maternal risk factors: Surgical Admission Education given: [x]Admission packet [x]Kangaroo care [x]Benefits of breast milk [x]How breast milk is made [x]Stages of milk production [x]Milk supply/ goal volumes [x]Hand expression [x]Hands-on pumping [x]Collecting, labeling, transporting milk [x]Cleaning, sanitizing pump parts [x]Storage of milk []Benefits and use of pasteurized donor human milk Visit done with in-person nylon operator. [place]ibian written materials provided. Ayse Zendejas, FLAKITAC-DI, IBCLC Quality Process Engineer Baljit: Telehealth Case Manager Group [phone] Office: [phone] * Plan of Care - Mar Obregon RN - 12/31/2023 4:55 AM CDT Goal Outcome Evaluation: Plan of Care Reviewed With: patient, spouse Overall Patient Progress: improvingOverall Patient Progress: improving VSS and assessments WDL. Up ad daily with steady gait and independent with cares. Watches infants on computer. Pumping every 2-4hrs. Pain managed with Tylenol and Toradol. Spouse, Ludwin andmother present and supportive. Will continue with cares and education per plan of care. Problem: Adult Inpatient Plan of Care Goal: Plan of Care Review Description: The Plan of Care Review/Shift note should be completed every shift. The Outcome Evaluation is a brief statement about your assessment that the patient is improving, declining, or no change. This information will be displayed automatically on your shift note. Outcome: Progressing Flowsheets (Taken 12/31/2023 0454) Plan of Care Reviewed With: patient spouse Overall Patient Progress: improving Goal: Patient-Specific Goal (Individualized) Description: You can add care plan individualizations to a care plan. Examples of Individualizationmight be: Parent requests to be called daily at 9am for status, I have a hard time hearing out of my right ear, or Do not touch me to wake me up as it startles me. Outcome: Progressing Goal: Absence of Hospital-Acquired Illness or Injury Outcome: Progressing Intervention: Prevent Skin Injury Recent Flowsheet Documentation Taken 12/30/20232039 by Mar Obregon RN Body Position: position changed independently Intervention: Prevent and Manage VTE (Venous Thromboembolism) Risk Recent Flowsheet Documentation Taken 12/30/20232039 by Mar Obregon RN VTE Prevention/Management: SCDs on (sequential compression devices) Intervention: Prevent Infection Recent Flowsheet Documentation Taken 12/30/20232039 by Mar Obregon RN Infection Prevention: equipment surfaces disinfected hand hygiene promoted personal protective equipment utilized rest/sleep promoted Goal: Optimal Comfort and Wellbeing Outcome: Progressing Intervention: Provide Person-Centered Care Recent Flowsheet Documentation Taken 12/30/20232039 by Mar Obregon RN Trust Relationship/Rapport: care explained choices provided empathic listening provided questions answered questions encouraged reassurance provided thoughts/feelings acknowledged Goal: Readiness for Transition of Care Outcome: Progressing Problem: ( Delivery) Goal: Successful Parent Role Transition Outcome: Progressing Intervention: Support Parent Role Transition Recent Flowsheet Documentation Taken 12/30/20232039 by Mar Obregon RN Supportive Measures: active listening utilized decision-making supported goal-setting facilitated positive reinforcement provided relaxation techniques promoted self-care encouraged verbalization of feelings encouraged Parent-Child Attachment Promotion: parent/caregiver presence encouraged participation in care promoted interaction encouraged Goal: Hemostasis Outcome: Progressing Goal: Effective Bowel Elimination Outcome: Progressing Goal: Fluid and Electrolyte Balance Outcome: Progressing Goal: Absence of Infection Signs and Symptoms Outcome: Progressing Intervention: Prevent or Manage Infection Recent Flowsheet Documentation Taken 12/30/20232039 by Mar Obregon RN Infection Management: aseptic technique maintained Goal: Anesthesia/Sedation Recovery Outcome: Progressing Goal: Optimal Pain Control and Function Outcome: Progressing Goal: Effective Urinary Elimination Outcome: Progressing Goal: Effective Oxygenation and Ventilation Outcome: Progressing Intervention: Optimize Oxygenation and Ventilation Recent Flowsheet Documentation Taken 12/30/20232039 by Mar Obregon RN Head of Bed (HOB) Positioning: HOB at 60-90 degrees * Plan of Care - Lata Ruiz RN - 12/30/2023 7:22 PM CDT Goal Outcome Evaluation: Plan of Care Reviewed With: patient, spouse Overall Patient Progress: improvingOverall Patient Progress: improving Outcome Evaluation: VSS, assessment WDL, downing removed at 1900 per order, tolerated standing bedside with minimal pain. Tolerating regular diet. Urine concentrated, PO fluids encouraged. Pumping for infants in NICU. Ludwin and mother Maribel supportive at bedside. Deniesquestions or concerns at this time, continue with plan of care. * Plan of Care - Quin Acuña RN - 12/30/2023 1:29 PM CDT Data: Kyara Villegas transferred to [facility] 7121 via cart at 1355. Stopped in NICU on the 11floor to see babies first before going up to [facility]. Action: Receiving unit notified of transfer: Yes. Patient and family notified of room change. Report given to Chelita BOGGS at 1345. Belongings sent to receiving unit. Accompanied by Registered Nurse. Oriented patient to surroundings. Call light within reach. Fundus double checked with RN. Response: Patient tolerated transfer and is stable. * Provider Notification - Quin Acuña RN - 12/30/2023 1:14 PM CDT 12/30/23 0929 Comments Nursing Comments (Patient sign consent for TAPS block and interperter present and filled out Ipad consent but unableto update user experience researcher name Angelique Huerta and ID [id number].) * Op Note - Linda Vizcarra MD - 12/30/2023 10:32 AM CDT [facility] OPERATIVE NOTE: SECTION Surgery Date: December 29, 2023 Surgeon(s): Linda Vizcarra MD Assistants: Antonio Goel MD, PGY2 Preoperative Diagnoses: - at 34w0d with monochorionic-diamniotic twin - Selective growth restriction twin 1 - Marginal cord insertion twin 1 Postoperative diagnoses: - at 34w4d, now delivered - Same as above Procedure performed: Primary low segment transverse section via Pfannenstiel skin incisionwith single layer uterine closure, cervical cerclage removal Anesthesia: Spinal with duramorph Est Blood Loss (mL): 864 mL Fluid replacement: 1000 mL crystalloid. Specimens: Placenta, umbilical cords Complications: None Operative findings: 1. Twin 1: Viable female at 1037 hours on 12/30/2023. Apgars of 8 and 9 at one and five minutes. weight: pending. presentation: vertex. Twin 2: Viable female infant at 1038 hours on 12/30/2023, breech presentation. 2. Cord segments and cord blood collected, placenta sent to pathology 3. Placenta intact with 3 vessel cord x2 4. Normal appearing uterus, fallopian tubes, ovaries. 5. No intraabdominal adhesions. No abdominal wall adhesions 6. Crane cerclage removed at end of case intact Indication: Kyara Villegas is a 23 year old at 33w6d by 10w3d US with mono-di twin who presents today for scheduled primary section and cerclage removal in the settingof selective growth restriction of twin 1.. The risks, benefits, and alternatives of delivery were explained and the patient agreed to proceed. Procedure details: After obtaining informed consent with assistance of a nylon operator, the patient was taken to the operating room. She received 2g Ancef prior to the skin incision. She was placed in the dorsal supine position with a leftward tilt and prepped and draped in the usual sterile fashion. Following test of adequate spinal anesthesia, the abdomen was entered through a transverse skin incision. The skin incision was made sharply and carried through the subcutaneous tissue to the fascia.Fascia was incised in the midline and extended laterally with blunt dissection. The muscle was in the midline. The peritoneum was entered bluntly and the opening extended by digital dissection with care to avoid the bladder. A bladder blade was placed. The lower segment of the uterus was opened sharply in a transverse fashion and extended with digital pressure. The one's head was noted to be in the vertex left occiput anterior position. It was elevated to the level of the hysterotomy and was delivered atraumatically, shoulders delivered easily thereafter. The cord was doubly clamped and cut immediately and the was handed off to the waiting NICU staff. A segment of the cord was cut and set aside for cord gases. Infant two's feet were grasped and the amniotic sac ruptured with an Starr clamp. The infant was delivered atraumatically using standard breech maneuvers. The cord was clamped and cut after 60 secondsof delayed cord clamping and handed off to the NICU staff. Asegment of cord was cut and set aside for cord gases. The placenta was expressed. The uterus was exteriorized from the abdomen and cleared of all clots and debris. The uterus was massaged and was noted to be firm. Pitocin was given through the running IV. With vigorous massage as well as administration of pitocin, good uterine tone was achieved. The hysterotomy was repaired with 0-vicryl suture in a running locked fashion. . The posterior [id number]-mj-xtseay irrigated and the uterus was returned to the abdomen. The bilateral pericolic gutters were irrigated. The hysterotomy was again inspected and found to behemostatic. The abdominal wall was examined and also found to be hemostatic. The fascia was closed with a running suture of 0-Vicryl. Subcutaneous tissue was irrigated. Areas that were not hemostaticwere controlled with cautery. The subcutaneous tissue was 2cm in depth and reapproximated with 3-0 vicryl. The skin was closed with 4-0 vicryl. A sterile pressure dressing was applied. The patient was then placed in dorsal lithotomy position with blue fin stirrups. A speculum was inserted in the vagina and the cervix visualized. Suture scissors were used to cut one string of Crane cerclage, and suture removed in its entirety. The speculum was removed from the vagina. The patient tolerated the procedure well and was taken to the recovery room in stable condition. All sponge, needle and instrument counts were correct x2. Dr. Vizcarra was present for the entire procedure. Antonio Goel MD Obstetrics & Gynecology, PGY-2 12/30/2023 3:58 PM I was present and scrubbed throughout the procedure, I agree with the note above Linda Vizcarra MD * Brief Op Note - Linda Vizcarra MD - 12/30/2023 10:00 AM CDT [facility] Brief Operative Note [facility] OPERATIVE NOTE: SECTION Surgery Date: December 29, 2023 Surgeon(s): Linda Vizcarra MD Assistants: Antonio Goel MD, MD, PGY2 Preoperative Diagnoses: - at 34w0d with monochorionic-diamniotic twin - Selective growth restriction twin 1 - Marginal cord insertion twin 1 Postoperative diagnoses: - at 34w4d, now delivered - Same as above Procedure performed: Primary low segment transverse section via Pfannenstiel skin incisionwith single layer uterine closure, cervical cerclage removal Anesthesia: Spinal with duramorph Est Blood Loss (mL): 864 mL Fluid replacement: 1000 mL crystalloid. Specimens: Placenta, umbilical cords Complications: None Operative findings: 1. Twin 1: Viable female at 1037 hours on 12/30/2023. Apgars of 8 and 9 at one and five minutes. weight: pending. presentation: vertex. Twin 2: Viable female at 1038 hours on 12/30/2023. 2. Cord segments and cord blood collected, placenta sent to pathology 3. Placenta intact with 3 vessel cord x2 4. Normal appearing uterus, fallopian tubes, ovaries. 5. No intraabdominal adhesions. No abdominal wall adhesions 6. Crane cerclage removed at end of case intact Antonio Goel MD Obstetrics & Gynecology, PGY-2 12/30/2023 11:46 AM I was present and scrubbed throughout the procedure, I agree with the note above Linda Vizcarra MD documented in this encounter Plan of Treatment Scheduled Referrals Name Type Priority Associated Diagnoses Orde r Schedule Home Care Referral Referral Routine: Next available opening 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 Ordered: 01/01/2024 documented as of this encounter Procedures Procedure Name Priority Date/Time Associated Diagnosis Comments EXTRA TUBE Routine 01/01/2024 7:26 AM CDT EXTRA GREEN TOP (LITHIUM HEPARIN) TUBE Routine 01/01/2024 7:26 AM CDT CBC WITH PLATELETS STAT 01/01/2024 7: 26 AM CDT HEMOGLOBIN Routine 12/31/2023 7:34 AM CDT PLACENTA PATH ORDER AND INDICATIONS Routine 12/30/2023 1:20 PM CDT GROUP B STREP PCR Routine 12/30/2023 10: 30 AM CDT SECTION 12/30/2023 10:0 2 AM CDT affected by growth restriction 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 TYPE AND SCREEN, ADULT STAT 12/30/2023 8:40 AM CDT HEPATITIS B SURFACE ANTIBODY STAT 12/30/2023 8:40 AM CDT TREPONEMA ABS W REFLEX TO RPR AND TITER STAT 12/30/2023 8:40 AM CDT ABO/RH TYPE AND SCREEN STAT 12/30/2023 8:40 AM CDT CBC WITH PLATELETS STAT 12/30/2023 8: 40 AM CDT POC US GUIDANCE NEEDLE PLACEMENT Routine 12/30/2023 6:03 AM CDT REMOVE CERCLAGE Routine 12/26/2023 3:48 PM CDT affected by growth restriction 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 documented in this encounter Results * Extra Green Top ([place]ers Heparin) Tube (01/01/2024 7:26 AM CDT) Hold Specimen JIC 01/01/2024 9:06 AM CDT UR LABORATORY Blood STRUCTURE OF RIGHT UPPER LIMB / Unknown Venipuncture / Unknown 01/01/2024 7:26 AM CDT 01/01/2024 8:00 AM CDT Linda Vizcarra MD LAB - BLOOD ORDERABLES Final Result UR LABORATORY [facility] Acute Care Lab [address] [place] [address], [facility] * (ABNORMAL) CBC with platelets (01/01/2024 7:26 AM CDT) WBC Count 9.2 4.0 - 11.0 10e3/uL [...] ORDERABLES Final Re sult Performing Organization Address City/[facility]/ZIP Co de Phone Number UR LABORATORY [facility] Lab [address] [place] [address], [address] * (ABNORMAL) Hemoglobin (12/31/2023 7:34 AM CDT) Hemoglobin 9.6(L) 11.7 - 15.7 g/dL 12/31/2023 8:09 AM CDT UR LABORATORY Blood STRUCTURE OF RIGHT UPPER LIMB / Unknown Venipuncture / Unknown 12/31/2023 7:34 AM CDT 12/31/2023 8:04 AM CDT us Antonio Goel MD LAB - BLOOD ORDERABLES Daniella l Result Performing Organization Address City/[facility] Co de Phone Number UR LABORATORY [facility] [address] [place] [address], [address] * Placenta path order and indications (12/30/2023 1:20 PM CDT) Case Report Peds Surgical Pathology Report Case: [id number] Authorizing Provider: Antonio Goel MD Collected: 12/30/2023 01:20 PM Ordering Location: [facility] Received: 12/30/2023 03:19 PM Birthplace Pathologist: Brad Bolden MD Specimen: Placenta, 34w0d 02/03/2024 9:40 AM REACH TRUCK OPERATOR UR LABORATORY Final Diagnosis Twin Placenta, Mid [...] No Significant Histologic Abnormalities. 02/03/2024 9:40 AM REACH TRUCK OPERATOR UR LABORATORY Comment No significant difference in maturation was noted when comparing the 2 halves of the placenta. Additionally, each was equally congested. 02/03/2024 9:40 AM REACH TRUCK OPERATOR UR LABORATORY Clinical Information 23 year old at 34w0d by 33w3d US with mono-di twin who presents today for scheduled primary section and cerclage removal in the setting of selective growth restriction of Twin 1. 02/03/2024 9:40 AM REACH TRUCK OPERATOR UR LABORATORY Gross Description A(A). Placenta, 34w0d: [...] and placental end of umbilical cord (inked) 3-9-cyxnjhxt Y, full-thickness, nonmarginal sections 3-1-lscheity Y, full-thickness, nonmarginal sections 02/03/2024 9:40 AM REACH TRUCK OPERATOR UR LABORATORY Microscopic Description A microscopic examination was done. The results are reflected in the above diagnoses. I have personally reviewed all specimens and/or slides and used them with my medical judgement to determine the final diagnosis. 02/03/2024 9:40 AM REACH TRUCK OPERATOR UR LABORATORY Performing Labs The technical component of this testing was completed at [facility]. Stain controls for all stains resulted within this report have been reviewed and show appropriate reactivity. 02/03/2024 9:40 AM REACH TRUCK OPERATOR UR LABORATORY Case Images 02/03/2024 9:40 AM REACH TRUCK OPERATOR UR LABORATORY Placenta PLACENTAL STRUCTURE / Unknown Non-blood Collection / Unknown 12/30/2023 1:20 PM CDT 12/30/2023 3:19 PM CDT us Antonio VAUGHN - LORI PEREZ Final Resul t UR LABORATORY [facility] Acute Care Lab [address] [place] [address], [facility] * Group B strep PCR (12/30/2023 10:30 [...] LABORATORY - 12/31/2023 12:00 PM CDT The [employer] Xpert GBS LB Assay, performed on the [employer], is a qualitative in vitro diagnostic [...] settings. The device is not intended for [id number]-bq-dojf use. Antonio Goel MD LAB - MICRO GENERAL ORDERAB LES Final Result [facility]AT[facility] Inf. Diseases Diag. Lab [address], [address] [place] [address] [[email or web address]] * Hepatitis B Surface Antibody (12/30/2023 8:40 [...] BLOOD ORDERABLES Daniella l Result [facility] LAB[facility]AT[facility] [place] [facility] Lab [address], [address] [place] [address] [[email or web address]] * Adult Type and Screen (12/30/2023 8:40 AM CDT) ABO/RH(D) A POS 12/30/2023 8:29 AM CDT UR BLOOD BANK Antibody Screen Negative Negative 12/30/2023 8:29 AM CDT UR BLOOD BANK SPECIMEN EXPIRATION DATE [id number] 12/30/2023 8:29 AM CDT UR BLOOD BANK Blood BLOOD SPECIMEN / Unknown Venipuncture / Unknown 12/30/2023 8:40 AM CDT 12/30/2023 8:46 AM CDT Antonio Goel MD LAB - BLOOD BANK TEST ORDER Final Result UR BLOOD BANK [facility] [place] [facility] Lab [address] [place] [address] [[email or web address]] * (ABNORMAL) CBC with platelets (12/30/2023 8:40 AM CDT) WBC Count 12.3(H) 4.0 - 11.0 10e3/uL 12/30/2023 8:52 AM CDT UR LABORATORY RBC Count 3.97 3.80 - 5.20 10e6/uL 12/30/2023 8:52 AM CDT UR LABORATORY Hemoglobin 11.7 11.7 - 15.7 g/dL 12/30/2023 8:52 AM CDT UR LABORATORY Hematocrit 34.4(L) 35.0 - 47.0 % 12/30/2023 8:52 AM CDT UR LABORATORY MCV 87 78 - 100 fL 12/30/2023 8:52 AM CDT UR LABORATORY MCH 29.5 26.5 - 33.0 pg 12/30/2023 8:52 AM CDT UR LABORATORY MCHC 34.0 31.5 - 36.5 g/dL 12/30/2023 8:52 AM CDT UR LABORATORY RDW 14.0 10.0 - 15.0 % 12/30/2023 8:52 AM CDT UR LABORATORY Platelet Count 213 150 - 450 10e3/uL 12/30/2023 8:52 AM CDT UR LABORATORY Blood BLOOD SPECIMEN / Unknown Venipuncture / Unknown 12/30/2023 8:40 AM CDT 12/30/2023 8:46 AM CDT us Antonio Goel MD LAB - BLOOD ORDERABLES Daniella l Result UR LABORATORY [facility] Acute Care Lab [address] [place] [id number] * Treponema Abs w Reflex to RPR and Titer (12/30/2023 8:40 AM CDT) Treponema Antibody Total Nonreactive Nonreactive 12/30/2023 12:58 PM CDT SPECIALTY CORE/PROT/EN DO Blood BLOOD SPECIMEN / Unknown Venipuncture / Unknown 12/30/2023 8:40 AM CDT 12/30/2023 8:45 AM CDT us Antonio Goel MD LAB - BLOOD ORDERABLES Daniella l Result [facility] SPECIALTY CORE/PROT/ENDO Specialty Core/Prot/Endo [address] [facility] [address], [address] * POC US Guidance Needle Placement (12/30/2023 6:03 AM CDT) Anatomical Region Laterality Modality Other Impressions 12/30/2023 6:03 AM CDT TRANSVERSUS ABDOMINIS PLANE BLOCK Narrative 12/30/2023 6:03 AM CDT TRANSVERSUS ABDOMINIS PLANE BLOCK us Domingo Desouza MD IMG POCUS Final Result documented in this encounter Visit Diagnoses Diagnosis S/P section- Primary Other postprocedural status affected by growth restriction 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 affected by growth restriction affected by growth restriction 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 documented in this encounter Admitting Diagnoses Diagnosis 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 affected by growth restriction documented in this encounter Administered Medications Inactive Administered Medications - up to 3 most recent administrations Medication Order MAR Action Action Date Dose Rate Site acetaminophen (TYLENOL) tablet 975 mg 975 mg, Oral, EVERY 6 HOURS, First dose on Fri12/30/23 at 1400, Start 6 hours after pre-op dose (if given) Maximum acetaminophen dose from all sources = 75 mg/kg/day not to exceed 4 grams/day. $Given 01/02/2024 8:38 AM CDT 975 mg $Given 01/02/2024 3:07 AM CDT 975 mg $Given 01/01/2024 9:11 PM CDT 975 mg bisacodyl (DULCOLAX) suppository 10 mg 10 mg, Rectal, DAILY PRN, constipation, Starting on Pati 01/01/24 at 0000, Start POD 2 Hold for loose stools. $Given 01/01/2024 3:38 AM CDT 10 mg BUPivacaine liposome (EXPAREL) 1.3 % LA inj susp 20 mL 20 mL, Infiltration, DURING SURGERY, Starting on Fri12/30/23 at 0603, For 1 dose, Invert vial to re-suspend particles immediately prior to withdrawal from vial. Stable for 4 hours at room temperature once removed from vial., Choose indication (restricted use): TAP block BUPivacaine liposome (EXPAREL) LA inj was given in the infiltration site to produce post-op analgesia. Duration of action is up to 72 hours. Other jeniffer meds should not be given for 96 hours except for lidocaine 4% patch. This is for INFORMATION ONLY. CONTINUOUS PRN, Starting on Fri12/30/23 at 0603, Until Fri01/02/24 at 1426, NURSE to notify physician if patient has ringing in the ears, metallic taste in the mouth, or circumoral numbness. DO NOT administer any additional local anesthetics POST-OPERATIVELY without contacting Anesthesia first. carboprost (HEMABATE) injection 250 mcg 250 mcg, Intramuscular, EVERY 15 MIN PRN, other, ONLY for uterine atony with significant bleeding POST-DELIVERY, Starting on Fri12/30/23 at 1357, Notify provider IF uterine atony and clarify with provider medication preference. Administer only if directed by provider. Give with caution in patients with asthma, active pulmonary, hepatic, renal or cardiovascular disease. ibuprofen (ADVIL/MOTRIN) tablet 800 mg 800 mg, Oral, EVERY 6 HOURS, First dose on Fri12/31/23 at 1200, Give with food. $Given 01/02/2024 8:39 AM CDT 800 mg $Given 01/02/2024 3:07 AM CDT 800 mg $Given 01/01/2024 9:11 PM CDT 800 mg loperamide (IMODIUM) capsule 4 mg 4 mg, Oral, ONCE PRN, other, Give with first dose of carboprost (HEMABATE), Starting on Fri12/30/23 at 1357, For 1 dose, May give only after delivery. metoclopramide (REGLAN) injection 10 mg 10 mg, Intravenous, Administer over 2 Minutes, EVERY 6 HOURS PRN, nausea, vomiting, Starting on Fri12/30/23 at 1357, This is Step 1 of OB nausea and vomiting management. Use IV if not tolerating oral therapy. If nausea is not resolved in 30 minutes, go to Step 2 (Zofran). Avoid use if patient has full bowel obstruction or perforation. metoclopramide (REGLAN) tablet 10 mg 10 mg, Oral, EVERY 6 HOURS PRN, nausea and vomiting, Starting on Fri12/30/23 at 1357, This is Step 1 of OB nausea and vomiting management. Preferred route. If nausea is not resolved in 30 minutes, go to Step 2 (Zofran) Avoid use if patient has full bowel obstruction or perforation. misoprostol (CYTOTEC) tablet 400 mcg 400 mcg, Oral, GIVE ONCE PRN AND REPEAT ACCORDING TO INSTRUCTIONS, post- hemorrhage, Starting on Fri12/30/23 at 1357, Administer only if directed by provider. Max administrations: 4 doses misoprostol (CYTOTEC) tablet 800 mcg 800 mcg, Rectal, GIVE ONCE PRN AND REPEAT ACCORDING TO INSTRUCTIONS, post- hemorrhage, Starting on Fri12/30/23 at 1357, Give rectally if unable to take oral without complications. Administer only if directed by provider. Max administrations: 4 doses. naloxone (NARCAN) injection 0.2 mg 0.2 mg, Intravenous, EVERY 2 MIN PRN, opioid reversal, Starting on Fri12/30/23 at 1359, Administer intravenous route when available and notify provider when administered. For unintended sedation or respiratory depression if all of the below criteria are met: ~ respiratory rate LESS than or EQUAL to 8. ~SaO2 less than 92% and or/end-tidal CO2 is greater than 50. ~ the patient is receiving an opioid, has unintended sedations assessed as RASS (-3), and is currently not on mechanical ventilation. RASS scale moderate (-3) is movement or eye opening to voice but no eye contact. Patient Monitoring Once the patient has demonstrated a response to the naloxone, continue to monitor respiratory rate, depth, oxygen saturation and end-tidal CO2 (if available) every 15 minutes x 2, then every 30 minutes x 2, then every 1 hour x 1 after each naloxone dose. Consider transfer to ICU if patient respiratory parameters have not improved after 4 naloxone doses. naloxone (NARCAN) injection 0.2 mg 0.2 mg, Intramuscular, EVERY 2 MIN PRN, opioid reversal, Starting on Fri12/30/23 at 1359, Administer intramuscular if an intravenous route is not available and notify provider when administered. For unintended sedation or respiratory depression if all of the below criteria are met: ~ respiratory rate LESS than or EQUAL to 8. ~SaO2 less than 92% and or/end-tidal CO2 is greater than 50. ~ the patient is receiving an opioid, has unintended sedations assessed as RASS (-3), and is currently not on mechanical ventilation. RASS scale moderate (-3) is movement or eye opening to voice but no eye contact. Patient Monitoring Once the patient has demonstrated a response to the naloxone, continue to monitor respiratory rate, depth, oxygen saturation and end-tidal CO2 (if available) every 15 minutes x 2, then every 30 minutes x 2, then every 1 hour x 1 after each naloxone dose. Consider transfer to ICU if patient respiratory parameters have not improved after 4 naloxone doses. naloxone (NARCAN) injection 0.4 mg 0.4 mg, Intravenous, EVERY 2 MIN PRN, opioid reversal, Starting on Fri12/30/23 at 1359, Administer intravenous route when available and notify provider when administered. For unintended sedation or respiratory depression if all of the below criteria are met: ~ respiratory rate LESS than or EQUAL to 8. ~ SaO2 less than 92% and or/end-tidal CO2 is greater than 50. ~ the patient is receiving an opioid, has unintended sedation assessed as RASS (-4) or (-5) and patient is currently not on mechanical ventilation. RASS scale (-4) is deep sedation with no response to voice but movement or eye opening to physical stimulation. RASS scale (-5) is unarousable. Patient Monitoring Once the patient has demonstrated a response to the naloxone, continue to monitor respiratory rate, depth, oxygen saturation and end-tidal CO2 (if available) every 15 minutes x 2, then every 30 minutes x 2, then every 1 hour x 1 after each naloxone dose. Consider transfer to ICU if patient respiratory parameters have not improved after 4 naloxone doses. naloxone (NARCAN) injection 0.4 mg 0.4 mg, Intramuscular, EVERY 2 MIN PRN, opioid reversal, Starting on Fri12/30/23 at 1359, Administer intramuscular if an intravenous route is not available and notify provider when administered. For unintended sedation or respiratory depression if all of the below criteria are met: ~ respiratory rate LESS than or EQUAL to 8. ~ SaO2 less than 92% and or/end-tidal CO2 is greater than 50. ~ the patient is receiving an opioid, has unintended sedation assessed as RASS (-4) or (-5) and patient is currently not on mechanical ventilation. RASS scale (-4) is deep sedation with no response to voice but movement or eye opening to physical stimulation. RASS scale (-5) is unarousable. Patient Monitoring Once the patient has demonstrated a response to the naloxone, continue to monitor respiratory rate, depth, oxygen saturation and end-tidal CO2 (if available) every 15 minutes x 2, then every 30 minutes x 2, then every 1 hour x 1 after each naloxone dose. Consider transfer to ICU if patient respiratory parameters have not improved after 4 naloxone doses. ondansetron (ZOFRAN ODT) ODT tab 4 mg 4 mg, Oral, EVERY 6 HOURS PRN, nausea, vomiting, Starting on Fri12/30/23 at 1357, This is Step 2 of OB nausea and vomiting management. Preferred route. Give If nausea not resolved in 30 minutes after giving metoclopramide (REGLAN). If nausea is not resolved in 15 minutes, go to Step 3 (Compazine). With dry hands, peel back foil backing and gently remove tablet. Do not push oral disintegrating tablet through foil backing. Administer immediately on tongue and oral disintegrating tablet dissolves in seconds, then swallow with saliva. Liquid not required. ondansetron (ZOFRAN) injection 4 mg 4 mg, Intravenous, EVERY 6 HOURS PRN, nausea, vomiting, Administer over 2-5 Minutes, Starting on Fri12/30/23 at 1357, This is Step 2 of OB nausea and vomiting management. Use IV if not tolerating oral therapy. Give if nausea not resolved 30 minutes after giving metoclopramide (REGLAN). If nausea is not resolved in 15 minutes, go to Step 3 (Compazine). oxyCODONE (ROXICODONE) tablet 5 mg 5 mg, Oral, EVERY 4 HOURS PRN, other, pain control or improvement in physical function. Hold dose for analgesic side effects., Starting on Fri12/30/23 at 1357, Notify provider to assess for uncontrolled pain or analgesic side effects. Hold while on [employer] or with regular IV opioid dosing. Maximum total is 60 mg in 24 hours. $Given 01/01/2024 9:41 AM CDT 5 mg $Given 01/01/2024 2:03 AM CDT 5 mg $Given 12/31/2023 7:57 PM CDT 5 mg polyethylene glycol (MIRALAX) Packet 17 g 17 g, Oral, DAILY PRN, constipation, constipation, Starting on Fri12/31/23 at 2016, 1 Packet = 17 grams. Mix each gram with at least 1/2 ounce (15 mL) of water - 8 ounces for 17 g dose, 4 ounces for 8.5 g dose, 2 ounces for 4 g dose. Follow with the same volume of water. Hold for loose stools unless being administered as part of a bowel prep regimen or bowel clean out. $Given 12/31/2023 10:30 PM CDT 17 g prochlorperazine (COMPAZINE) injection 10 mg 10 mg, Intravenous, EVERY 6 HOURS PRN, nausea, vomiting, Administer over 2 Minutes, Starting on Fri12/30/23 at 1357, This is Step 3 of OB nausea and vomiting management. Use IV if not tolerating oral therapy. Give if nausea not resolved 15 minutes after giving ondansetron (ZOFRAN). If nausea is not resolved in 30 minutes, notify provider. prochlorperazine (COMPAZINE) tablet 10 mg 10 mg, Oral, EVERY 6 HOURS PRN, nausea, vomiting, Starting on Fri12/30/23 at 1357, This is Step 3 of OB nausea and vomiting management. Preferred route. Give if nausea not resolved 15 minutes after giving ondansetron (ZOFRAN). If nausea is not resolved in 30 minutes, notify provider. senna-docusate (SENOKOT-S/PERICOLACE) 8.6-50 MG per tablet 1 tablet 1 tablet, Oral, 2 TIMES DAILY, First dose on Fri12/30/23 at 2000, If no bowel movement in 24 hours, increase to 2 tablets PO. Hold for loose stools. Preferred agent for constipation related to opioids. Hold for loose stools. $Given 01/01/2024 9:11 PM CDT 1 tablet $Given 01/01/2024 8:44 AM CDT 1 tablet $Given 12/31/2023 7:55 PM CDT 1 tablet senna-docusate (SENOKOT-S/PERICOLACE) 8.6-50 MG per tablet 2 tablet 2 tablet, Oral, 2 TIMES DAILY, First dose on Fri12/30/23 at 2000, Hold for loose stools. Preferred agent for constipation related to opioids. Hold for loose stools. $Given 01/02/2024 8:32 AM CDT 2 tablets simethicone (MYLICON) chewable tablet 80 mg 80 mg, Oral, 4 TIMES DAILY PRN, other, gas, Starting on Fri12/30/23 at 1357, Chew. $Given 01/02/2024 8:32 AM CDT 80 mg $Given 01/01/2024 9:11 PM CDT 80 mg $Given 01/01/2024 3:11 PM CDT 80 mg sodium chloride (PF) 0.9% PF flush 3 mL 3 mL, Intracatheter, EVERY 1 MIN PRN, line flush, other, to ensure patency or to lock dormant line, Starting on Fri12/30/23 at 0756 documented in this encounter Active and Recently Administered Medications Times are shown in CDT. Scheduled Medication Order 12/31/2023 01/01/2024 01/02/2024 acetaminophen (TYLENOL) tablet 975 mg 975 mg, Oral, EVERY 6 HOURS, First dose on Fri12/30/23 at 1400, Start 6 hours after pre-op dose (if given) Maximum acetaminophen dose from all sources = 75 mg/kg/day not to exceed 4 grams/day. 0410 (Canceled Entry - Provider: Mar Obregon RN)0807 ($Given - Provider: Yanet Vásquez RN)1215 (Canceled Entry - Provider: Yanet Vásquez RN - Comment: Rescheduled for 1400 today)1412 ($Given - Provider: Yanet Vásquez RN)195 ($Given - Provider: Negar Arora RN) 0159 ($Given - Provider: Tomasa Granados RN)0844 ($Given - Provider: Yanet Vásquez RN)1437 ($Given - Provider: Yanet Vásquez RN)211 ($Given - Provider: Pricilla Santizo RN) 0307 ($Given - Provider: Linda Lopez, FLAKITA)0838 ($Given - Provider: Alyce Moncada RN) BUPivacaine liposome (EXPAREL) 1.3 % LA inj susp 20 mL 20 mL, Infiltration, DURING SURGERY, Starting on Fri12/30/23 at 0603, For 1 dose, Invert vial to re-suspend particles immediately prior to withdrawal from vial. Stable for 4 hours at room temperature once removed from vial., Choose indication (restricted use): TAP block ibuprofen (ADVIL/MOTRIN) tablet 800 mg 800 mg, Oral, EVERY 6 HOURS, First dose on Fri12/31/23 at 1200, Give with food. 1215 (Canceled Entry - Provider: Yanet Vásquez RN - Comment: Rescheduled for 1400 today)1412 ($Given - Provider: Yanet Vásquez RN)195 ($Given - Provider: Negar Arora, FLAKITA) 0159 ($Given - Provider: Tomasa Granados RN)0844 ($Given - Provider: Yanet Vásquez RN)1437 ($Given - Provider: Yanet Vásquez RN)211 ($Given - Provider: Pricilla Santizo, RN) 0307 ($Given - Provider: Linda Lopez RN)0839 ($Given - Provider: Alyce Moncada, RN) ketorolac (TORADOL) injection 30 mg (COMPLETED) 30 mg, Intravenous, EVERY 6 HOURS, First dose on Fri12/30/23 at 1800, For 3 doses, Give first dose in PACU IF NOT given in OR. Can cause pain on injection. If ordered intravenously (IV) : administer through a running maintenance fluid over 1 minute followed by a flush. If patient complains of pain on injection, may dilute 15-30 mg in 5 mL and push over 1 to 2 minutes. 0807 ($Given - Provider: Yanet Vásquez RN) senna-docusate (SENOKOT-S/PERICOLACE) 8.6-50 MG per tablet 1 tablet(Linked Group 1) 1 tablet, Oral, 2 TIMES DAILY, First dose on Fri12/30/23 at 1999, If no bowel movement in 24 hours, increase to 2 tablets PO. Hold for loose stools. Preferred agent for constipation related to opioids. Hold for loose stools. 0807 ($Given - Provider: Yanet Vásquez RN)1954 ($Given - Provider: Negar Arora RN) 0844 ($Given - Provider: Yanet Vásquez RN)2110 ($Given - Provider: Pricilla Santizo RN) 0832 (See Alternative - Provider: Alyce Moncada, FLAKITA) senna-docusate (SENOKOT-S/PERICOLACE) 8.6-50 MG per tablet 2 tablet(Linked Group 1) 2 tablet, Oral, 2 TIMES DAILY, First dose on Fri12/30/23 at 1999, Hold for loose stools. Preferred agent for constipation related to opioids. Hold for loose stools. 0807 (See Alternative - Provider: Yanet Vásquez RN)1954 (See Alternative - Provider: Negar Arora RN) 0844 (See Alternative - Provider: Yanet Vásquez RN)2111 (See Alternative - Provider: Pricilla Santizo, RN) 0832 ($Given - Provider: Alyce Moncada, FLAKITA) sodium chloride (PF) 0.9% PF flush 3 mL (CANCELED) 3 mL, Intracatheter, EVERY 8 HOURS, First dose on Fri12/30/23 at 0800, to lock peripheral IV dormant line 0808 ($Given - Provider: Yanet Vásquez, RN)1602 (Not Given - Provider: Yanet Vásquez, FLAKITA - Reason: No IV Access)2320 (Canceled Entry - Provider: Negar Arora, FLAKITA) 0845 (Not Given - Provider: Yanet Vásquez, FLAKITA - Reason: No IV Access)1930 (Not Given - Provider: Linda Lopez RN - Reason: Loss of IV access) Continuous Medication Order 12/31/2023 01/01/2024 01/02/2024 dextrose 5% in lactated ringers infusion at 125 mL/hr, Intravenous, CONTINUOUS, Subsequent IV at nurse's discretion. DC IV when tolerating fluids or at nurse's discretion & saline lock., Starting on Fri12/30/23 at 1400, Until Fri01/02/24 at 1426 PRN Medication Order 12/31/2023 01/01/2024 01/02/2024 bisacodyl (DULCOLAX) suppository 10 mg 10 mg, Rectal, DAILY PRN, constipation, Starting on Pati 01/01/24 at 0000, Start POD 2 Hold for loose stools. 0338 ($Given - Provider: Tomasa Granados, FLAKITA) BUPivacaine liposome (EXPAREL) LA inj was given in the infiltration site to produce post-op analgesia. Duration of action is up to 72 hours. Other jeniffer meds should not be given for 96 hours except for lidocaine 4% patch. This is for INFORMATION ONLY. CONTINUOUS PRN, Starting on Fri12/30/23 at 0603, Until Fri01/02/24 at 1426, NURSE to notify physician if patient has ringing in the ears, metallic taste in the mouth, or circumoral numbness. DO NOT administer any additional local anesthetics POST-OPERATIVELY without contacting Anesthesia first. carboprost (HEMABATE) injection 250 mcg(Linked Group 2) 250 mcg, Intramuscular, EVERY 15 MIN PRN, other, ONLY for uterine atony with significant bleeding POST-DELIVERY, Starting on Fri12/30/23 at 1357, Notify provider IF uterine atony and clarify with provider medication preference. Administer only if directed by provider. Give with caution in patients with asthma, active pulmonary, hepatic, renal or cardiovascular disease. hydrocortisone (Perianal) (ANUSOL-HC) 2.5 % cream Rectal, 3 TIMES DAILY PRN, hemorrhoids, Starting on Fri12/30/23 at 1357, Apply to hemorrhoids. Send only if nurse requests. lanolin cream Topical, EVERY 1 HOUR PRN, dry skin, soreness, Starting on Fri12/30/23 at 1357, Apply to sore nipples after feedings lidocaine (LMX4) cream Topical, EVERY 1 HOUR PRN, pain, with VAD insertion, Starting on Fri12/30/23 at 1357, Apply at least 30 minutes prior to VAD insertion in divided doses as needed for size of site for insertion. MAX Dose: 2.5 g ( of 5 g tube) Do NOT give if patient has a history of allergy to any local anesthetic or any jeniffer product. Do NOT use both lidocaine intradermal/subcutaneous injection and the lidocaine cream on the same site. lidocaine 1 % 0.1-1 mL 0.1-1 mL, Other, EVERY 1 HOUR PRN, mild pain with VAD insertion, Starting on Fri12/30/23 at 1357, MAX dose 1 mL subcutaneous OR intradermal along the side of the vein in divided doses as needed for VAD insertion. Do NOT give if patient has a history of allergy to any local anesthetic or any jeniffer product. Do NOT use both lidocaine intradermal/subcutaneous injection and the lidocaine cream on the same site. loperamide (IMODIUM) capsule 2 mg 2 mg, Oral, EVERY 2 HOURS PRN, other, after each loose stool, Starting on Fri12/30/23 at 1357, May give only after delivery. For diarrhea occurring after carboprost (HEMABATE) administration ONLY. Maximum 16 mg/day. Do NOT give stool softeners or laxatives until diarrhea is resolved. loperamide (IMODIUM) capsule 4 mg(Linked Group 2) 4 mg, Oral, ONCE PRN, other, Give with first dose of carboprost (HEMABATE), Starting on Fri12/30/23 at 1357, For 1 dose, May give only after delivery. methylergonovine (METHERGINE) injection 200 mcg 200 mcg, Intramuscular, EVERY 2 HOURS PRN, ONLY for uterine atony with significant bleeding POST-DELIVERY, Starting on Fri12/30/23 at 1357, Notify provider IF uterine atony and clarify with provider medication preference. Administer only if directed by provider. Contraindicated if Blood Pressure greater than 140/90, preeclampsia, or hypertension. metoclopramide (REGLAN) injection 10 mg(Linked Group 3) 10 mg, Intravenous, Administer over 2 Minutes, EVERY 6 HOURS PRN, nausea, vomiting, Starting on Fri12/30/23 at 1357, This is Step 1 of OB nausea and vomiting management. Use IV if not tolerating oral therapy. If nausea is not resolved in 30 minutes, go to Step 2 (Zofran). Avoid use if patient has full bowel obstruction or perforation. metoclopramide (REGLAN) tablet 10 mg(Linked Group 3) 10 mg, Oral, EVERY 6 HOURS PRN, nausea and vomiting, Starting on Fri12/30/23 at 1357, This is Step 1 of OB nausea and vomiting management. Preferred route. If nausea is not resolved in 30 minutes, go to Step 2 (Zofran) Avoid use if patient has full bowel obstruction or perforation. misoprostol (CYTOTEC) tablet 400 mcg(Linked Group 4) 400 mcg, Oral, GIVE ONCE PRN AND REPEAT ACCORDING TO INSTRUCTIONS, post- hemorrhage, Starting on Fri12/30/23 at 1357, Administer only if directed by provider. Max administrations: 4 doses misoprostol (CYTOTEC) tablet 800 mcg(Linked Group 4) 800 mcg, Rectal, GIVE ONCE PRN AND REPEAT ACCORDING TO INSTRUCTIONS, post- hemorrhage, Starting on Fri12/30/23 at 1357, Give rectally if unable to take oral without complications. Administer only if directed by provider. Max administrations: 4 doses. naloxone (NARCAN) injection 0.2 mg(Linked Group 5) 0.2 mg, Intravenous, EVERY 2 MIN PRN, opioid reversal, Starting on Fri12/30/23 at 1359, Administer intravenous route when available and notify provider when administered. For unintended sedation or respiratory depression if all of the below criteria are met: ~ respiratory rate LESS than or EQUAL to 8. ~SaO2 less than 92% and or/end-tidal CO2 is greater than 50. ~ the patient is receiving an opioid, has unintended sedations assessed as RASS (-3), and is currently not on mechanical ventilation. RASS scale moderate (-3) is movement or eye opening to voice but no eye contact. Patient Monitoring Once the patient has demonstrated a response to the naloxone, continue to monitor respiratory rate, depth, oxygen saturation and end-tidal CO2 (if available) every 15 minutes x 2, then every 30 minutes x 2, then every 1 hour x 1 after each naloxone dose. Consider transfer to ICU if patient respiratory parameters have not improved after 4 naloxone doses. naloxone (NARCAN) injection 0.2 mg(Linked Group 5) 0.2 mg, Intramuscular, EVERY 2 MIN PRN, opioid reversal, Starting on Fri12/30/23 at 1359, Administer intramuscular if an intravenous route is not available and notify provider when administered. For unintended sedation or respiratory depression if all of the below criteria are met: ~ respiratory rate LESS than or EQUAL to 8. ~SaO2 less than 92% and or/end-tidal CO2 is greater than 50. ~ the patient is receiving an opioid, has unintended sedations assessed as RASS (-3), and is currently not on mechanical ventilation. RASS scale moderate (-3) is movement or eye opening to voice but no eye contact. Patient Monitoring Once the patient has demonstrated a response to the naloxone, continue to monitor respiratory rate, depth, oxygen saturation and end-tidal CO2 (if available) every 15 minutes x 2, then every 30 minutes x 2, then every 1 hour x 1 after each naloxone dose. Consider transfer to ICU if patient respiratory parameters have not improved after 4 naloxone doses. naloxone (NARCAN) injection 0.4 mg(Linked Group 5) 0.4 mg, Intravenous, EVERY 2 MIN PRN, opioid reversal, Starting on Fri12/30/23 at 1359, Administer intravenous route when available and notify provider when administered. For unintended sedation or respiratory depression if all of the below criteria are met: ~ respiratory rate LESS than or EQUAL to 8. ~ SaO2 less than 92% and or/end-tidal CO2 is greater than 50. ~ the patient is receiving an opioid, has unintended sedation assessed as RASS (-4) or (-5) and patient is currently not on mechanical ventilation. RASS scale (-4) is deep sedation with no response to voice but movement or eye opening to physical stimulation. RASS scale (-5) is unarousable. Patient Monitoring Once the patient has demonstrated a response to the naloxone, continue to monitor respiratory rate, depth, oxygen saturation and end-tidal CO2 (if available) every 15 minutes x 2, then every 30 minutes x 2, then every 1 hour x 1 after each naloxone dose. Consider transfer to ICU if patient respiratory parameters have not improved after 4 naloxone doses. naloxone (NARCAN) injection 0.4 mg(Linked Group 5) 0.4 mg, Intramuscular, EVERY 2 MIN PRN, opioid reversal, Starting on Fri12/30/23 at 1359, Administer intramuscular if an intravenous route is not available and notify provider when administered. For unintended sedation or respiratory depression if all of the below criteria are met: ~ respiratory rate LESS than or EQUAL to 8. ~ SaO2 less than 92% and or/end-tidal CO2 is greater than 50. ~ the patient is receiving an opioid, has unintended sedation assessed as RASS (-4) or (-5) and patient is currently not on mechanical ventilation. RASS scale (-4) is deep sedation with no response to voice but movement or eye opening to physical stimulation. RASS scale (-5) is unarousable. Patient Monitoring Once the patient has demonstrated a response to the naloxone, continue to monitor respiratory rate, depth, oxygen saturation and end-tidal CO2 (if available) every 15 minutes x 2, then every 30 minutes x 2, then every 1 hour x 1 after each naloxone dose. Consider transfer to ICU if patient respiratory parameters have not improved after 4 naloxone doses. No Tdap Needed - Assessment: Patient does not need Tdap vaccine CONTINUOUS PRN, Starting on Fri12/30/23 at 1357, Until Fri01/02/24 at 1426 ondansetron (ZOFRAN ODT) ODT tab 4 mg(Linked Group 6) 4 mg, Oral, EVERY 6 HOURS PRN, nausea, vomiting, Starting on Fri12/30/23 at 1357, This is Step 2 of OB nausea and vomiting management. Preferred route. Give If nausea not resolved in 30 minutes after giving metoclopramide (REGLAN). If nausea is not resolved in 15 minutes, go to Step 3 (Compazine). With dry hands, peel back foil backing and gently remove tablet. Do not push oral disintegrating tablet through foil backing. Administer immediately on tongue and oral disintegrating tablet dissolves in seconds, then swallow with saliva. Liquid not required. ondansetron (ZOFRAN) injection 4 mg(Linked Group 6) 4 mg, Intravenous, EVERY 6 HOURS PRN, nausea, vomiting, Administer over 2-5 Minutes, Starting on Fri12/30/23 at 1357, This is Step 2 of OB nausea and vomiting management. Use IV if not tolerating oral therapy. Give if nausea not resolved 30 minutes after giving metoclopramide (REGLAN). If nausea is not resolved in 15 minutes, go to Step 3 (Compazine). oxyCODONE (ROXICODONE) tablet 5 mg 5 mg, Oral, EVERY 4 HOURS PRN, other, pain control or improvement in physical function. Hold dose for analgesic side effects., Starting on Fri12/30/23 at 1357, Notify provider to assess for uncontrolled pain or analgesic side effects. Hold while on MAT REPAIRER or with regular IV opioid dosing. Maximum total is 60 mg in 24 hours. 1412 ($Given - Provider: Yanet Vásquez, FLAKITA)1957 ($Given - Provider: Negar Arora RN) 0203 ($Given - Provider: Tomasa Granados RN)0941 ($Given - Provider: Yanet Vásquez, FLAKITA) oxytocin (PITOCIN) 30 units in 500 mL 0.9% NaCl infusion 100-340 mL/hr, Intravenous, CONTINUOUS PRN, After delivery to prevent uterine atony, Starting on Fri12/30/23 at 1357, Give after delivery to prevent uterine atony per provider direction. Administer 340 mL/hr over 30 minutes for a total of 170 mL, then decrease to 100 mL/hr until infusion complete (about 3.5 hours) or per provider direction. Start new bag at delivery. Discontinue or saline lock peripheral IV per nurse discretion. oxytocin (PITOCIN) 30 units in 500 mL 0.9% NaCl infusion 340 mL/hr, Intravenous, CONTINUOUS PRN, for hemorrhage (PPH) UNTIL bleeding subsided., Starting on Fri12/30/23 at 1357, When bleeding subsides decrease rate to 100 mL/hr. Notify provider immediately when infusion begun. Oxytocin is first line medication for PPH. oxytocin (PITOCIN) injection 10 Units 10 Units, Intramuscular, ONCE PRN, Give after delivery to prevent uterine atony., Starting on Fri12/30/23 at 1357, For 1 dose, Give after delivery to prevent uterine atony if no IV access is available per provider direction. oxytocin (PITOCIN) injection 10 Units 10 Units, Intramuscular, ONCE PRN, for hemorrhage (PPH), IF no IV access is available., Starting on Fri12/30/23 at 1357, For 1 dose, Notify provider immediately when injection given. Oxytocin is first line medication for PPH. polyethylene glycol (MIRALAX) Packet 17 g 17 g, Oral, DAILY PRN, constipation, constipation, Starting on Fri12/31/23 at 2016, 1 Packet = 17 grams. Mix each gram with at least 1/2 ounce (15 mL) of water - 8 ounces for 17 g dose, 4 ounces for 8.5 g dose, 2 ounces for 4 g dose. Follow with the same volume of water. Hold for loose stools unless being administered as part of a bowel prep regimen or bowel clean out. 2230 ($Given - Provider: Linda Lopez, RN) prochlorperazine (COMPAZINE) injection 10 mg(Linked Group 7) 10 mg, Intravenous, EVERY 6 HOURS PRN, nausea, vomiting, Administer over 2 Minutes, Starting on Fri12/30/23 at 1357, This is Step 3 of OB nausea and vomiting management. Use IV if not tolerating oral therapy. Give if nausea not resolved 15 minutes after giving ondansetron (ZOFRAN). If nausea is not resolved in 30 minutes, notify provider. prochlorperazine (COMPAZINE) tablet 10 mg(Linked Group 7) 10 mg, Oral, EVERY 6 HOURS PRN, nausea, vomiting, Starting on Fri12/30/23 at 1357, This is Step 3 of OB nausea and vomiting management. Preferred route. Give if nausea not resolved 15 minutes after giving ondansetron (ZOFRAN). If nausea is not resolved in 30 minutes, notify provider. simethicone (MYLICON) chewable tablet 80 mg 80 mg, Oral, 4 TIMES DAILY PRN, other, gas, Starting on Fri12/30/23 at 1357, Chew. 1111 ($Given - Provider: Yanet Vásquez, RN)1955 ($Given - Provider: Negar Arora, FLAKITA) 0203 ($Given - Provider: Tomasa Granados, FLAKITA)0941 ($Given - Provider: Yanet Vásquez, RN)1511 ($Given - Provider: Alyce Moncada, RN)2111 ($Given - Provider: Pricilla Santizo, FLAKITA) 0832 ($Given - Provider: Alyce Moncada, RN) sodium chloride (PF) 0.9% PF flush 3 mL 3 mL, Intracatheter, EVERY 1 MIN PRN, line flush, other, to ensure patency or to lock dormant line, Starting on Fri12/30/23 at 0756 sodium chloride (PF) 0.9% PF flush 3 mL 3 mL, Intracatheter, EVERY 1 MIN PRN, line flush, other, to ensure patency or to lock dormant line, Starting on Fri12/30/23 at 1357 sodium phosphate (FLEET ENEMA) 1 enema 1 enema, Rectal, DAILY PRN, constipation, , Starting on Pati 01/01/24 at 0000, Use if bisacodyl not effective. Start POD 2. Hold for loose stools unless being administered as part of a bowel prep regimen prior to a procedure. tranexamic acid 1 g in 100 mL NS IV bag (premix) 1 g, Intravenous, Administer over 10 Minutes, EVERY 30 MIN PRN, Post- hemorrhage (PPH), Starting on Fri12/30/23 at 1357, For 2 doses, Provider consultation REQUIRED and MUST be administered as soon as the ONSET of bleeding AND within 3 hours of regardless of cause of the PPH (atony OR laceration). IF bleeding continues, a 2nd dose may be administered after 30 minutes. IF concern for DIC (Disseminated Intravascular Coagulation), obtain coagulation studies PRIOR to administration. Contraindications include: history of PE (Pulmonary Emboli), DVT (Deep Vein Thrombosis) and current Subarachnoid hemorrhage and active DIC. Administer only if directed by provider. Linked Groups Order Group 1: senna-docusate (SENOKOT-S/PERICOLACE) 8.6-50 MG per tablet 1 tabletJump to med 1 tablet, Oral, 2 TIMES DAILY, First dose on Fri12/30/23 at 2000, If no bowel movement in 24 hours, increase to 2 tablets PO. Hold for loose stools. Preferred agent for constipation related to opioids. Hold for loose stools. Or senna-docusate (SENOKOT-S/PERICOLACE) 8.6-50 MG per tablet 2 tabletJump to med 2 tablet, Oral, 2 TIMES DAILY, First dose on Fri12/30/23 at 2000, Hold for loose stools. Preferred agent for constipation related to opioids. Hold for loose stools. Group 2: carboprost (HEMABATE) injection 250 mcgJump to med 250 mcg, Intramuscular, EVERY 15 MIN PRN, other, ONLY for uterine atony with significant bleeding POST-DELIVERY, Starting on Fri12/30/23 at 1357, Notify provider IF uterine atony and clarify with provider medication preference. Administer only if directed by provider. Give with caution in patients with asthma, active pulmonary, hepatic, renal or cardiovascular disease. And loperamide (IMODIUM) capsule 4 mgJump to med 4 mg, Oral, ONCE PRN, other, Give with first dose of carboprost (HEMABATE), Starting on Fri12/30/23 at 1357, For 1 dose, May give only after delivery. Group 3: metoclopramide (REGLAN) tablet 10 mgJump to med 10 mg, Oral, EVERY 6 HOURS PRN, nausea and vomiting, Starting on Fri12/30/23 at 1357, This is Step 1 of OB nausea and vomiting management. Preferred route. If nausea is not resolved in 30 minutes, go to Step 2 (Zofran) Avoid use if patient has full bowel obstruction or perforation. Or metoclopramide (REGLAN) injection 10 mgJump to med 10 mg, Intravenous, Administer over 2 Minutes, EVERY 6 HOURS PRN, nausea, vomiting, Starting on Fri12/30/23 at 1357, This is Step 1 of OB nausea and vomiting management. Use IV if not tolerating oral therapy. If nausea is not resolved in 30 minutes, go to Step 2 (Zofran). Avoid use if patient has full bowel obstruction or perforation. Group 4: misoprostol (CYTOTEC) tablet 400 mcgJump to med 400 mcg, Oral, GIVE ONCE PRN AND REPEAT ACCORDING TO INSTRUCTIONS, post- hemorrhage, Starting on Fri12/30/23 at 1357, Administer only if directed by provider. Max administrations: 4 doses Or misoprostol (CYTOTEC) tablet 800 mcgJump to med 800 mcg, Rectal, GIVE ONCE PRN AND REPEAT ACCORDING TO INSTRUCTIONS, post- hemorrhage, Starting on Fri12/30/23 at 1357, Give rectally if unable to take oral without complications. Administer only if directed by provider. Max administrations: 4 doses. Group 5: naloxone (NARCAN) injection 0.2 mgJump to med 0.2 mg, Intravenous, EVERY 2 MIN PRN, opioid reversal, Starting on Fri12/30/23 at 1359, Administer intravenous route when available and notify provider when administered. For unintended sedation or respiratory depression if all of the below criteria are met: ~ respiratory rate LESS than or EQUAL to 8. ~SaO2 less than 92% and or/end-tidal CO2 is greater than 50. ~ the patient is receiving an opioid, has unintended sedations assessed as RASS (-3), and is currently not on mechanical ventilation. RASS scale moderate (-3) is movement or eye opening to voice but no eye contact. Patient Monitoring Once the patient has demonstrated a response to the naloxone, continue to monitor respiratory rate, depth, oxygen saturation and end-tidal CO2 (if available) every 15 minutes x 2, then every 30 minutes x 2, then every 1 hour x 1 after each naloxone dose. Consider transfer to ICU if patient respiratory parameters have not improved after 4 naloxone doses. Or naloxone (NARCAN) injection 0.4 mgJump to med 0.4 mg, Intravenous, EVERY 2 MIN PRN, opioid reversal, Starting on Fri12/30/23 at 1359, Administer intravenous route when available and notify provider when administered. For unintended sedation or respiratory depression if all of the below criteria are met: ~ respiratory rate LESS than or EQUAL to 8. ~ SaO2 less than 92% and or/end-tidal CO2 is greater than 50. ~ the patient is receiving an opioid, has unintended sedation assessed as RASS (-4) or (-5) and patient is currently not on mechanical ventilation. RASS scale (-4) is deep sedation with no response to voice but movement or eye opening to physical stimulation. RASS scale (-5) is unarousable. Patient Monitoring Once the patient has demonstrated a response to the naloxone, continue to monitor respiratory rate, depth, oxygen saturation and end-tidal CO2 (if available) every 15 minutes x 2, then every 30 minutes x 2, then every 1 hour x 1 after each naloxone dose. Consider transfer to ICU if patient respiratory parameters have not improved after 4 naloxone doses. Or naloxone (NARCAN) injection 0.2 mgJump to med 0.2 mg, Intramuscular, EVERY 2 MIN PRN, opioid reversal, Starting on Fri12/30/23 at 1359, Administer intramuscular if an intravenous route is not available and notify provider when administered. For unintended sedation or respiratory depression if all of the below criteria are met: ~ respiratory rate LESS than or EQUAL to 8. ~SaO2 less than 92% and or/end-tidal CO2 is greater than 50. ~ the patient is receiving an opioid, has unintended sedations assessed as RASS (-3), and is currently not on mechanical ventilation. RASS scale moderate (-3) is movement or eye opening to voice but no eye contact. Patient Monitoring Once the patient has demonstrated a response to the naloxone, continue to monitor respiratory rate, depth, oxygen saturation and end-tidal CO2 (if available) every 15 minutes x 2, then every 30 minutes x 2, then every 1 hour x 1 after each naloxone dose. Consider transfer to ICU if patient respiratory parameters have not improved after 4 naloxone doses. Or naloxone (NARCAN) injection 0.4 mgJump to med 0.4 mg, Intramuscular, EVERY 2 MIN PRN, opioid reversal, Starting on Fri12/30/23 at 1359, Administer intramuscular if an intravenous route is not available and notify provider when administered. For unintended sedation or respiratory depression if all of the below criteria are met: ~ respiratory rate LESS than or EQUAL to 8. ~ SaO2 less than 92% and or/end-tidal CO2 is greater than 50. ~ the patient is receiving an opioid, has unintended sedation assessed as RASS (-4) or (-5) and patient is currently not on mechanical ventilation. RASS scale (-4) is deep sedation with no response to voice but movement or eye opening to physical stimulation. RASS scale (-5) is unarousable. Patient Monitoring Once the patient has demonstrated a response to the naloxone, continue to monitor respiratory rate, depth, oxygen saturation and end-tidal CO2 (if available) every 15 minutes x 2, then every 30 minutes x 2, then every 1 hour x 1 after each naloxone dose. Consider transfer to ICU if patient respiratory parameters have not improved after 4 naloxone doses. Group 6: ondansetron (ZOFRAN ODT) ODT tab 4 mgJump to med 4 mg, Oral, EVERY 6 HOURS PRN, nausea, vomiting, Starting on Fri12/30/23 at 1357, This is Step 2 of OB nausea and vomiting management. Preferred route. Give If nausea not resolved in 30 minutes after giving metoclopramide (REGLAN). If nausea is not resolved in 15 minutes, go to Step 3 (Compazine). With dry hands, peel back foil backing and gently remove tablet. Do not push oral disintegrating tablet through foil backing. Administer immediately on tongue and oral disintegrating tablet dissolves in seconds, then swallow with saliva. Liquid not required. Or ondansetron (ZOFRAN) injection 4 mgJump to med 4 mg, Intravenous, EVERY 6 HOURS PRN, nausea, vomiting, Administer over 2-5 Minutes, Starting on Fri12/30/23 at 1357, This is Step 2 of OB nausea and vomiting management. Use IV if not tolerating oral therapy. Give if nausea not resolved 30 minutes after giving metoclopramide (REGLAN). If nausea is not resolved in 15 minutes, go to Step 3 (Compazine). Group 7: prochlorperazine (COMPAZINE) tablet 10 mgJump to med 10 mg, Oral, EVERY 6 HOURS PRN, nausea, vomiting, Starting on Fri12/30/23 at 1357, This is Step 3 of OB nausea and vomiting management. Preferred route. Give if nausea not resolved 15 minutes after giving ondansetron (ZOFRAN). If nausea is not resolved in 30 minutes, notify provider. Or prochlorperazine (COMPAZINE) injection 10 mgJump to med 10 mg, Intravenous, EVERY 6 HOURS PRN, nausea, vomiting, Administer over 2 Minutes, Starting on Fri12/30/23 at 1357, This is Step 3 of OB nausea and vomiting management. Use IV if not tolerating oral therapy. Give if nausea not resolved 15 minutes after giving ondansetron (ZOFRAN). If nausea is not resolved in 30 minutes, notify provider. documented in this encounter Care Teams Student Activities Director Relationship Specialty Start Date End Date No Ref-Primary, Physician PCP - General 07/22/23 Mica Aguilar MD [address] [place] [id number] Assigned OBGYN Provider 08/31/2312/29 documented as of this encounter
--- OUTSIDE RECORDS SUMMARY | 2024-02-10 14:47 | XMS_ITS | Encounter Summary ---
Author Organization [facility] Address [address] [place] [address]. [place] [address] Care Team Providers Care Dental Service Technician Name Role Phone No Ref-Primary, Physician Primary Care Provider Mica Aguilra MD Unavailable [phone] Encounter Details Date Type Department Care Team (Late st Contact Info) Description 12/19/2023 11:00 AM CDT Office Visit [facility] [employer] [address] [place] [phone] Lamar Griffith Social History Tobacco Use [...] on filedocumented in this encounter Care Teams Dental Service Technician Relationship Specialty Start Date End Date No Ref-Primary, Physician PCP - General 07/22/23 Mica Aguilar MD [address] [facility] [address] [id number] Assigned OBGYN Provider 08/31/2312/29 documented as of this encounter
--- OUTSIDE RECORDS SUMMARY | 2024-02-10 14:47 | XMS_ITS | Encounter Summary ---
Author Organization [facility] Address [address] [place] [address]. [place] [address] Care Team Providers Care Aromatherapist Name Role Phone No Ref-Primary, Physician Primary Care Provider Mica Aguilar MD Unavailable Didi Daniel MD Unavailable Reason for Referral * Home Health Therapies & Aides (Routine: Next available opening) Specialty Diagnoses / Procedures Referred By Criseldaac t Referred To Contact Diagnoses 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 [address] [address] Phone: tel: fax: Referral ID Status Reason Start Date Expiration Date Visits Re quested Visits Authorized Question Answer Please see patient within 96 hours of discharge Reason for Referral Routine Clinic Name and Callback Information for Results/Concerns WHNato FERNANDO Comments If your home visit was not scheduled during your hospital stay, you should receive a call from [facility] within 24 hours after discharge to schedule your ordered home visit. If you have not heard by then, please call [phone]. Reason for Visit * Reason Comments Scheduled Section * Auth/Cert (Routine) Specialty Diagnoses / Procedures Referred By Contac t Referred To Contact personal investment adviser 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 affected by growth restriction [O36.5990] 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 [O30.033] affected by growth restriction 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 Procedures ND W/ASSIST SPLIT ND DELIVERY ONLY ND DELIVERY+ CARE ND REMOVE CERCLAGE SUTURE SECTION REMOVAL, CERCLAGE SUTURE [facility] [address] [place] [address] Phone: tel: Referral ID Status Reason Start Date Expiration Date Visits Re quested Visits Authorized [id number] 1 1 Encounter Details Date Type Department Care Team (Latest Contact Info) Description 12/30/2023 7:44 AM CDT - 01/02/2024 12:26 PM CDT Hospital Encounter [facility] [address] [place] [address] Linda Vizcarra MD [address] [place] [address] S/P section (Primary Dx); affected by growth restriction; 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 Discharge Disposition: Home-Health Care Svc Social History Tobacco Use Types Packs/Day Years Used Date Smoking Tobacco: Never Passive Smoke Exposure: Never Smokeless Tobacco: Never Alcohol Use Standard Drinks/Week Comments Not Currently 0 (1 standard drink = 0.6 oz pur e alcohol) [place] Depression Scale Answer Date Recorded Last EPDS [...] 11.2 oz) 01/02/2024 5:30 AM CDT Height - - Body Mass Index 33.77 09/26/2023 4:59 PM CDT documented in this encounter Discharge Summaries * Bing Allen MD - 01/02/2024 9:16 AM CDT [facility] Discharge Summary Kyara Villegas Age: [age] year old Date of : 2000 Date of Admission: 12/30/2023 Date of Discharge: 01/02/24 Admitting Physician: Linda Vizcarra MD Discharge Physician: [...] your medicines These medications were sent to [facility] [address] [address] acetaminophen 325 MG tablet ferrous sulfate 325 [...] with edits by me. Bryan Black MD [facility] Obstetrics, Gynecology, and Women's Health 3:57 PM 01/02/2024 documented in this encounter Discharge Instructions * Discharge Instructions* Alyce Moncada RN - 01/02/2024 9:00 AM CDT Images [...] of your health care provider. Copyright 2020 [facility] [employer]. All rights reserved. Clinically reviewed by Sandra Avelar, RNC-OB, MSN. [employer] [id number] - Rev 05/02. El per??odo posparto: Instrucciones [...] dif??cil dormir. Es posible que llore mucho. [place] se llama melancol??a de la maternidad. Estas [...] al d??a y despu??s de las evacuaciones. [place] los analg??sicos (medicamentos para el dolor) exactamente seg??n las indicaciones. Si el m??dico le recet?? un analg??sico, t??sarmiento seg??n las indicaciones. Si no est?? tomando un analg??sico recetado, preg??ntele a aden m??dico si puede jessica dillon de venta maxime. Coma m??s fibra [...] acercade lo siguiente: Cambios en los senos, hood bultos o sensibilidad. Cu??ndo esperar que regrese aedn per??odo menstrual. Qu?? forma de anticoncepci??n es [...] prevenci??n del suicidio y crisis. Llamar al [phone] ( ). Enviar un mensaje de texto que diga HOME al [phone] para acceder a la l??rosie de mensajes de texto encasos de crisis. Considere guardar estos n??meros en aden tel??fono. Visite [employer] para obtener m??s informaci??n o conversar en l??rosie. Llame a aden m??dico ahora mismo o busque atenci??n m??dica de inmediato si: Tiene se??ales de hemorragia (sangrado excesivo), hood: Sangrado vaginal intenso. [place]rich significa que est?? empapando gilles o m??s [...] no disminuye. Siente tristeza, ansiedad o desesperanza arúl m??s de algunos d??as. Tiene problemas con los senos o el amamantamiento. ??D??nde puede encontrar m??s informaci??n en ingl??s? Vaya a https://Viva la Vita.[employer].net/patientedes Escriba Z768 en la b??squeda para aprender m??s acerca de El per??odo posparto: Instrucciones de cuidado-Instrucciones de cuidado. Revisado: 2022 Versi??n del contenido: 14.2 ?? 2023 [facility] [employer]. Las instrucciones de cuidado fueron adaptadas bajo licencia por aden profesional de atenci??n m??dica. Si usted tiene preguntas sobre gilles afecci??n m??dica o sobre estas instrucciones, siempre preguntea aden profesional de kel. [employer] niega toda delon??a o responsabilidad por adne uso de esta informaci??n. documented in this [...] Allen MD - 01/02/2024 9:15 AM CDT [facility] Post- Progress Note Name: Kyara Villegas S: [...] the plan for discharge. Bryan Black MD [facility] Obstetrics, Gynecology, and Women's [...] care for this patient. Kirit Abreu MD Research Investigator, CA-2, PGY-3 Cosigned by Rashaun Drummond MD at 01/02/2024 3:37 PM CDT Associated attestation - Rashaun Drummond MD - 01/02/2024 3:37 PM CDT Physician Attestation I agree with the information in this note. Rashaun Drummond MD * Moriah Finney MD - 01/01/2024 6:44 AM CDT [facility] Post- Progress Note Name: Kyara Villegas *Patient seen with in-person university counselor* S: Kyara is feeling okay this morning. [...] endometritis. Moriah Finney MD [facility], Quality Liaison 01/01/2024 10:01 AM * Sridevi Landry MD - 12/31/2023 8:29 AM CDT [facility] Post- Progress Note Name: Kyara Villegas S: [...] for Discharge: Anticipated Tomorrow or POD#3 Monisha aVlentin MD Obstetrics and Gynecology, PGY-2 12/31/23 8:32 [...] Hx: Denies - Sexually active: Yes - [employer] Music Therapist surgeries: Denies Lab Results: Lab Results Component [...] Cerclage cervical; Surgeon: Heidi Swain MD; Location: L+D History reviewed. No pertinent family history. [...] Section - Admitted to L&D - Indication: Briscoe-di twins, selective FGR twin 1 - Consent [...] - Hgb 11.7 on admission - Hold SET UP TECHNICIAN PO Fe on admission # PNC - [...] is being well managed. Communication Assessment: Spoken language-Bruneian, university counselor was utilized during initial assessment. Living Environment: Kyara reports she resides with her Ludwin and her additional family members that include her 3 sisters. Kyara reports they reside an hour away in [place], [place]. Family/support Factors Kyara reports she has a robust support system that includes her large family as well as her . Community Resources: Current Resources: Kyara reports she has recently applied for WIC. Kyara reports that her and her family do not utilize any additional benefits through the [facility]. Kyara and Ludwin report both havingadequate baby supplies which includes a crib and car seat for both babies. Kyara reports needing noadditional resources at this time. SW provided monthly parking pass to family per their request. 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 Kyara and Ludwin report no immediate [...] with babies when Kyara gets discharged from [facility]. Kyara was concerned about it being uncomfortable and not having enough space to sleep on the 11th floor and inquired about additional sleeping areas in the hospital. Kyara requested to stay on [facility]. SW informed Kyara that [facility] would not [...] to follow for supportive intervention. BECKY Ho, [facility] Maternal and Child Health Cashier Assistant Office: [phone] After Hours Pager: [phone] [email or web address] documented in this encounter Miscellaneous Notes * Plan of Care - Alyce Moncada RN - 01/02/2024 9:35 AM CDT Data: Vital signs stable, assessments within normal limits. Eating and drinking without nausea or vomiting. Up ad daily, and voiding without difficulty. Passing gas/BM. Pumping, [...] attachment behaviors observed with . Support persons present. Plan: Continue with the [...] Patient Progress: improvingOverall Patient Progress: improving Shift: 2250-1142: Shift handoff report received from FLAKITA Bills. [...] Flowsheets (Taken 01/01/2024 0400) Individualized Care Needs: assistant professor of spanish needed, promote double breast pump use every 2-3 hours Anxieties, Fears or Concerns: pain control, bowel movement Patient/Family-Specific Goals (Include Timeframe): pain level 4 out of 10 after interventions, havebowel movement prior to discharge Goal: Optimal Comfort and Wellbeing Outcome: Not Progressing Intervention: Monitor Pain and Promote Comfort Recent Flowsheet Documentation Taken 01/01/2024 0306 by Tomasa Granados RN Pain Management Interventions: heat applied Taken 01/01/2024 024 by Tomasa Granados RN Pain Management Interventions: (heat offered and refused) other (see comments) Taken 01/01/2024 020 by Tomasa Granados RN Pain Management Interventions: (heat offered and refused) medication (see MAR) other (see comments) pillow support provided relaxation techniques promoted rest breathing exercises care clustered Intervention: Provide Person-Centered Care Recent Flowsheet Documentation Taken 01/01/2024 020 by Tomasa Granados RN Trust Relationship/Rapport: care explained choices provided Problem: ( Delivery) Goal: Effective Bowel Elimination Outcome: Not Progressing Intervention: Enhance Bowel Motility and Elimination Recent Flowsheet Documentation Taken 01/01/2024 020 by Tomasa Granados RN Bowel Motility Enhancement: ambulation promoted fluid intake encouraged Bowel Elimination Promotion: adequate fluid intake promoted ambulation promoted Goal: Optimal Pain Control and Function Outcome: Not Progressing Intervention: Prevent or Manage Pain Recent Flowsheet Documentation Taken 01/01/2024 0306 by Tomasa Granados RN Pain Management Interventions: heat applied Taken 01/01/2024 0245 by Tomasa Granados RN Pain Management Interventions: (heat offered and refused) other (see comments) Taken 01/01/2024 020 by Tomasa Granados RN Pain Management Interventions: [...] RN on 01/01/2024 at 4:04 AM Kyara N Brower Villegas states that she had a bowel [...] doneabout pumping, ambulation to encourage bowel function. Sexual Assault Counsellor via phone used for all interactions. See flow record. Response: Positive attachment behaviors observed with infant. Support persons Ludwin present. Plan: Anticipate discharge [...] a baby's chart. Admission Note Baby Information: Infant's first name: Sean (A) and Emanuel (B) medical history: 34+0 Sexual Assault Counsellor needed? Yes; language needed: Bruneian goal (if known): Breastfeed/ combo feed for a few months history: First babies Mother's Information: Name: Kyara Occupation: Age: 23 Delivery type: Kosse: [place] (an hour away) Pump for home use: recommend [employer] Partner's name: Ludwin Occupation: Relevant maternal medical and social hx: Information for the patient's mother: Kyara Alvarez [[id number]] History reviewed. No pertinent past medical history., Information for the patient's mother: Kyara Alvarez [[id number]] Patient Active Problem List Diagnosis Cervical shortening affecting in second trimester 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 affected by growth restriction , and Information for the patient's mother: Kyara lAvarez [[id number]] Medications Prior to Admission Medication Sig Dispense [...] donor human milk Visit done with in-person university counselor. Bruneian written materials provided. Ayse Zendejas RNC-DI, IBCLC Pick Pulling Machine Operator Baljit: [employer] [phone] Office: [phone] * Plan of Care - Mar Obregon [...] Recent Flowsheet Documentation Taken 12/30/20232039 by Mar Obregon, RN Body Position: position changed independently Intervention: [...] PM CDT Data: Kyara Villegas transferred to [facility] 7121 via cart at 1355. Stopped in NICU on the 11floor to see babies first before going up to [facility]. Action: Receiving unit notified of transfer: [...] filled out Ipad consent but unableto update site safety representative name Angelique Huerta and ID [id number].) * Op Note - Linda Vizcarra MD - 12/30/2023 10:32 AM CDT [facility] OPERATIVE NOTE: SECTION Surgery Date: December [...] obtaining informed consent with assistance of a university counselor, the patient was taken to the operating [...] fashion and extended with digital pressure. The infant one's head was noted to be in the vertex left occiput anterior position. It was elevated to the level of the hysterotomy and was delivered atraumatically, shoulders delivered easily thereafter. The cord was doubly clamped and cut immediately and the infant was handed off to the waiting NICU staff. A segment of the cord was cut and set aside for cord gases. two's feet were grasped and the amniotic sac ruptured with an Starr clamp. The infant was delivered atraumatically using standard breech maneuvers. The cord was clamped and cut after 60 secondsof delayed cord clamping and infant handed off to the NICU staff. Asegment [...] a running locked fashion. . The posterior hdj-se-oykayn irrigated and the uterus was returned to the abdomen. The bilateral pericolic gutters were irrigated. The hysterotomy was again inspected and found to behemostatic. The abdominal wall was examined and also found to be hemostatic. The fascia was closedwith a running suture of 0-Vicryl. Subcutaneous tissue was irrigated. Areas that were not hemostatic were controlled with cautery. The subcutaneous tissue was 2cm in depth and reapproximated with 3-0vicryl. The skin was closed with 4-0 vicryl. [...] Vizcarra MD - 12/30/2023 10:[address] [facility] Brief Operative Note [facility] OPERATIVE NOTE: SECTION Surgery Date: December 29, 2023 Surgeon(s): Linda Vizcarra MD Assistants: Antonio Goel MD, , PGY2 Preoperative Diagnoses: - at 34w0d with [...] this encounter Results * Extra Green Top ([employer] Heparin) Tube (01/01/2024 7:26 AM CDT) Pathologist [facility] Hold Specimen [facility] 01/01/2024 9:06 AM CDT UR LABORATORY Blood STRUCTURE OF RIGHT UPPER LIMB / Unknown Venipuncture / Unknown 01/01/2024 7:26 AM CDT 01/01/2024 8:00 AM CDT us Linda Vizcarra MD LAB - BLOOD ORDERABLES Final Result UR LABORATORY [facility] Acute Care Lab [address] [place] [address], [address] [place] [address] * (ABNORMAL) CBC with platelets (01/01/2024 7:26 AM CDT) [facility] WBC Count 9.2 4.0 - 11.0 [...] BLOOD ORDERABLES Final Re sult UR LABORATORY [facility] Acute Care Lab [address] [facility], [address] * (ABNORMAL) Hemoglobin (12/31/2023 7:34 AM CDT) Hemoglobin 9.6(L) 11.7 - 15.7 g/dL 12/31/2023 8:09 AM CDT UR LABORATORY Blood STRUCTURE OF RIGHT UPPER LIMB / Unknown Venipuncture / Unknown 12/31/2023 7:34 AM CDT 12/31/2023 8:04 AM CDT us Antonio Goel MD LAB - BLOOD ORDERABLES Daniella schneider Result UR LABORATORY [facility] Acute Care Lab [address] [place] [address], [address] * Placenta path order and indications (12/30/2023 1:20 PM CDT) Case Report Peds Surgical Pathology Report Case: [id number] Authorizing Provider: Antonio Goel MD Collected: 12/30/2023 01:20 PM Ordering Location: [facility] Received: 12/30/2023 03:19 PM [facility] Pathologist: Brad Bolden MD Specimen: Placenta, 34w0d 02/03/2024 9:40 AM MARINE SERVICES TECHNICIAN UR LABORATORY Final Diagnosis Twin Placenta, Mid [...] No Significant Histologic Abnormalities. 02/03/2024 9:40 AM MARINE SERVICES TECHNICIAN UR LABORATORY Comment No significant difference in maturation was noted when comparing the 2 halves of the placenta. Additionally, each was equally congested. 02/03/2024 9:40 AM MARINE SERVICES TECHNICIAN UR LABORATORY Clinical Information 23 year old at 34w0d by 33w3d US with mono-di twin who presents today for scheduled primary section and cerclage removal in the setting of selective growth restriction of Twin 1. 02/03/2024 9:40 AM MARINE SERVICES TECHNICIAN UR LABORATORY Gross Description A(A). Placenta, 34w0d: [...] and placental end of umbilical cord (inked) 1-3-wfrgocke Y, full-thickness, nonmarginal sections 3-3-ovwqqmlo Y, full-thickness, nonmarginal sections 02/03/2024 9:40 AM MARINE SERVICES TECHNICIAN UR LABORATORY Microscopic Description A microscopic examination was done. The results are reflected in the above diagnoses. I have personally reviewed all specimens and/or slides and used them with my medical judgement to determine the final diagnosis. 02/03/2024 9:40 AM MARINE SERVICES TECHNICIAN UR LABORATORY Performing Labs The technical component of this testing was completed at [facility]. Stain controls for all stains resulted within this report have been reviewed and show appropriate reactivity. 02/03/2024 9:40 AM MARINE SERVICES TECHNICIAN UR LABORATORY Case Images 02/03/2024 9:40 AM MARINE SERVICES TECHNICIAN UR LABORATORY Placenta PLACENTAL STRUCTURE / Unknown Non-blood Collection / Unknown 12/30/2023 1:20 PM CDT 12/30/2023 3:19 PM CDT us Antonio VAUGHN - LORI PEREZ Final Resul t UR LABORATORY [facility] Acute Care Lab [facility], [address] [place] [address], [facility] * Group B strep PCR [...] LABORATORY - 12/31/2023 12:00 PM CDT The Cepheid Xpert GBS LB Assay, performed on the [employer], is a qualitative in vitro [...] settings. The device is not intended for illys-mz-ypfy use. Antonio Goel MD LAB - MICRO GENERAL ORDERAB LES Final Result IDD LABORATORY [facility] Inf. Diseases Diag. Lab [address] [facility], [address] [place], [place] [phone] * Hepatitis B Surface Antibody (12/30/2023 8:40 AM CDT) Pathologist [facility] Hepatitis B Surface Antibody Reactive 12/30/2023 5:30 [...] BLOOD ORDERABLES Daniella l Result U LABORATORY [facility] [address] [facility], [address] [place] [address] * Adult Type and Screen (12/30/2023 8:40 AM CDT) Pathologist [facility] ABO/RH(D) A POS 12/30/2023 8:29 AM CDT UR BLOOD BANK Antibody Screen Negative Negative 12/30/2023 8:29 AM CDT UR BLOOD BANK SPECIMEN EXPIRATION DATE [id number] 12/30/2023 8:29 AM CDT UR BLOOD BANK Blood BLOOD SPECIMEN / Unknown Venipuncture / Unknown 12/30/2023 8:40 AM CDT 12/30/2023 8:46 AM CDT Antonio Goel MD LAB - BLOOD BANK TEST ORDER Final Result UR BLOOD BANK [facility] Blood Components Lab [address] [facility], [address] [place] [address], [facility] * (ABNORMAL) CBC with platelets (12/30/2023 8:40 [...] Goel MD LAB - BLOOD ORDERABLES Daniella wyatt Result UR LABORATORY [facility] Acute Care Lab [address] [facility], [address] [place] [phone] * Treponema Abs w Reflex to RPR and Titer (12/30/2023 8:40 AM CDT) Treponema Antibody Total Nonreactive Nonreactive 12/30/2023 12:58 PM CDT [facility]EN DO Blood BLOOD SPECIMEN / Unknown Venipuncture / Unknown 12/30/2023 8:40 AM CDT 12/30/2023 8:45 AM CDT Antonio Goel MD LAB - BLOOD ORDERABLES Daniella schneider Result [facility]/PROT/ENDO Specialty Core/Prot/Endo [address] [facility], [address] * POC US Guidance Needle Placement [...] 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 S/P section Other postprocedural status 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 affected by growth restriction documented in this encounter Admitting Diagnoses Diagnosis 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 affected by growth restriction documented in this encounter Administered Medications Inactive Administered Medications - up to 3 most recent administrations Medication Order MAR Action Action Date Dose Rate Site acetaminophen (TYLENOL) tablet 975 mg 975 mg, Oral, ONCE, On Fri12/30/23 at 0830, For 1 dose, Maximum acetaminophen dose from all sources = 75 mg/kg/day not to exceed 4 grams/day., Pre-procedure $Given 12/30/2023 9:32 AM CDT 975 mg acetaminophen (TYLENOL) tablet 975 mg 975 mg, [...] $Given 01/01/2024 9:11 PM CDT 800 mg ketorolac (TORADOL) injection 30 mg 30 mg, Intravenous, EVERY 6 HOURS, First [...] and push over 1 to 2 minutes. $Given 12/31/2023 8:07 AM CDT 30 mg $Given 12/30/2023 11:48 PM CDT 30 mg $Given 12/30/2023 5:35 PM CDT 30 mg lactated ringers BOLUS 500 mL Intravenous, 500 mL, ONCE, at 1,000 mL/hr, Administer over 30 Minutes, On Fri12/30/23 at 0830, For 1 dose, Initiate within 60 minutes of surgical procedure, Pre-procedure $New Bag 12/30/2023 9:33 AM CDT 500 mLs 1000 mL/hr lactated ringers infusion at 100 mL/hr, Intravenous, CONTINUOUS, Pre-operative maintenance fluid., Pre-procedure, Starting on Fri12/30/23 at 0830, Until Fri12/30/23 at 1357 Rate/Dose Change 12/30/2023 9:34 AM CDT 100 mL/hr loperamide (IMODIUM) capsule 4 mg 4 mg, [...] or analgesic side effects. Hold while on [employer]ER[employer] PURCHASE AND SALE CLERK or with regular IV opioid dosing. Maximum total is 60 mg in 24 hours. $Given 01/01/2024 9:41 AM CDT 5 mg $Given 01/01/2024 2:03 AM CDT 5 mg $Given 12/31/2023 7:57 PM CDT 5 mg oxytocin (PITOCIN) 30 units in 500 [...] AM CDT 300 mL/hr 300 mL /hr polyethylene glycol (MIRALAX) Packet 17 g 17 [...] 0800, to lock peripheral IV dormant line $Given 12/31/2023 8:08 AM CDT 3 mLs $Given 12/30/2023 11:48 PM CDT 3 mLs $Given 12/30/2023 5:36 PM CDT 3 mLs sodium chloride (PF) 0.9% PF flush 3 mL 3 mL, Intracatheter, EVERY 1 MIN PRN, line flush, other, to ensure patency or to lock dormant line, Starting on Fri12/30/23 at 0756 sodium citrate-citric acid (BICITRA) 500-334 MG/5ML solution Starting on Fri12/30/23 at 0909, For 1 dose, Quin Acuña: krystalinet override $Given 12/30/2023 9:42 AM CDT 30 mLs documented in this [...] for 1400 today)1412 ($Given - Provider: Yanet Vásquez, FLAKITA)1954 ($Given - Provider: Negar Arora, FLAKITA) 0159 ($Given - Provider: Tomasa Granados, FLAKITA)0844 ($Given - Provider: Yanet Vásquez, FLAKIAT)1437 ($Given - Provider: Yanet Vásquez RN)2111 ($Given - Provider: Pricilla Santizo, FLAKITA) 0307 ($Given - Provider: Linda Lopez, FLAKITA)0838 [...] 1400 today)1412 ($Given - Provider: Yanet Vásquez RN)1954 ($Given - Provider: Negar Arora RN) 0159 ($Given - Provider: Tomasa Granados RN)0844 ($Given - Provider: Yanet Vásquez RN)143 ($Given - Provider: Yanet Vásquez, FLAKITA)211 ($Given - Provider: Pricilla Santizo, FLAKITA) 0307 ($Given - Provider: Linda Lopez RN)0839 ($Given - Provider: Alyce Moncada, FLAKITA) ketorolac (TORADOL) injection 30 mg (COMPLETED) 30 [...] Arora RN) 0844 ($Given - Provider: Yanet Vásquez, FLAKITA)2111 ($Given - Provider: Pricilla Santizo, FLAKITA) 0832 (See Alternative - Provider: Alyce Moncada RN) senna-docusate (SENOKOT-S/PERICOLACE) 8.6-50 MG per tablet 2 tablet(Linked Group 1) 2 tablet, Oral, 2 TIMES DAILY, First dose on Fri12/30/23 at 2000, Hold for loose stools. Preferred agent for constipation related to opioids. Hold for loose stools. 0807 (See Alternative - Provider: Yaent Vásquez RN)1955 (See Alternative - Provider: Negar Arora RN) 0844 (See Alternative - Provider: Yanet Vásquez RN)2111 (See Alternative - Provider: Pricilla Santizo, FLAKITA) 0832 ($Given - Provider: Alyce Moncada RN) sodium chloride (PF) 0.9% PF flush 3 mL (CANCELED) 3 mL, Intracatheter, EVERY 8 HOURS, First dose on Fri12/30/23 at 0800, to lock peripheral IV dormant line 0808 ($Given - Provider: Yanet Vásquez RN)1602 (Not Given - Provider: Yanet Vásquez RN - Reason: No IV Access)2320 (Canceled Entry - Provider: Negar Arora RN) 0845 (Not Given - Provider: Yanet Vásquez RN - Reason: No IV Access)1930 (Not Given [...] mg, Rectal, DAILY PRN, constipation, Starting on Fri01/01/24 at 0000, Start POD 2 Hold for loose stools. 0338 ($Given - Provider: Tomasa Granados RN) BUPivacaine liposome (EXPAREL) LA inj was given [...] or analgesic side effects. Hold while on BROKERAGE PURCHASE AND SALE CLERK or with regular IV opioid dosing. Maximum [...] Chew. 1111 ($Given - Provider: Yanet Vásquez, FLAKITA)1955 ($Given - Provider: Negar Arora RN) 0203 ($Given - Provider: Tomasa Granados RN)0941 ($Given - Provider: Yanet Vásquez, FLAKITA)1511 ($Given - Provider: Alyce Moncada, FLAKITA)2111 ($Given - Provider: Pricilla Santizo RN) 0832 ($Given - Provider: Alyce Moncada, [...] provider. documented in this encounter Care Teams Aromatherapist Relationship Specialty Start Date End Date No Ref-Primary, Physician PCP - General 07/22/23 Mica Aguilar MD [address] [place] [address] [address] [place], [place] [address] Assigned OBGYN Provider 08/31/2312/29 Didi Daniel MD [address] [place] [address] [address] [place] [address] Assigned OBGYN Provider 12/31/23 documented as of this encounter
--- OUTSIDE RECORDS SUMMARY | 2024-02-10 14:47 | XMS_ITS | Encounter Summary ---
Author Organization [place] Address [address] [place] [address]. 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 Procedures FL W/ASSIST SPLIT FL DELIVERY ONLY FL DELIVERY+ CARE FL REMOVE CERCLAGE SUTURE SECTION REMOVAL, CERCLAGE SUTURE [facility] [address] [place] [phone] Phone: tel: Referral ID Status Reason Start Date Expiration Date Visits Re quested Visits Authorized [id number] 1 1 Encounter Details Date Type Department Care Team (Late st Contact Info) Description 01/01/2024 8:00 AM CDT Office Visit [facility] Physics Technician Services [address] [place] [phone] Angelique Donald Social History Tobacco Use Types Packs/Day Years Used Date Smoking Tobacco: Never Passive Smoke Exposure: Never Smokeless Tobacco: Never Alcohol Use Standard Drinks/Week Comments Not Currently 0 (1 standard drink = 0.6 oz pur e alcohol) [place] Depression Scale Answer Date Recorded Last EPDS [...] Date Recorded Do you have housing? (Maxi g is defined as stable permanent housing and does not include staying ouside in a car, in a tent, in an abandoned building, in an overnight long-term, or couch-surfing.) Yes 01/02/2024 Are you worried [...] on filedocumented in this encounter Care Teams Pillowcase Turner Relationship Specialty Start Date End Date No Ref-Primary, Physician PCP - General 07/22/23 Didi Daniel MD [address] [place] [address] [address] [place] [address] Assigned OBGYN Provider 12/31/23 documented as of this encounter
--- OUTSIDE RECORDS SUMMARY | 2024-02-10 14:47 | XMS_ITS | Encounter Summary ---
Author Organization [place] Address [address] [facility] 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 Thank-you for referring your patient to assess for signs of TTTS/TAPS due to monochorionic twin which is complicated as of last week by a new diagnosis of selective growth restrictionof twin 1. We discussed the findings on today's ultrasound with the patient and her partner with the assistance of a off track betting manager via iPad. The patient brought a Post-It note with her on which was written questions and notes for us, including that she could no longer deliver with her local hospital andwe needed to arrange care for her elsewhere. We assume that this was from her primary OB provider, ivana miranda we did not get any additional notification from them. We did call them for more information regarding this Post-It note. We discussed that with her new diagnosis of sFGR in mono-di twins, delivery should be facilitated between 86r9g-74m6n. The patient and her partner were surprised by this and are not yet ready for delivery. We have coordinated with the nitrator operator surgical faculty at our primary hospital [facility], and will work to coordinate delivery next week at 34 weeks. We have been able to schedule her delivery via C/S (with cerclage removal) with Dr. Linda Vizcarra next week. No tubal ligation is indicated (patient is a primigravida and does not want tubal at this time). We have called her primary Ob team in [place] to assist with surgical prep as the [...] discussing the plan of care, documenting the visitin the electronic medical record, and communicating with other health critical care paramedic and/or care coordination. Heidi Swain MD Maternal Medicine documented in this encounter Nursing Notes * Marisol Frausto RN - 12/26/2023 2:00 PM CDT Inside[employer] off track betting manager used for [facility] ultrasound and office visit. Patient reports positive movement, no pain, no contractions, leaking of fluid, or bleeding. NST Performed due to FGR twin A. Dr. Swain reviewed efm tracing. See NST/BPP Doc Flowsheet tab. * Nella Causey RN - 12/26/2023 2:00 PM CDT Patient arrived to [facility] with post it from [place] [facility] provider with questions and a request for patient to transfer care to hospital that would have capability to care for 34w babies. PCC's notifiedof need for CS by Friday next week. FLAKITA Shi scheduled C/S at 1030am on Friday and will call patient with plan. Yuridia will inform [facility] of POC. 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
--- OUTSIDE RECORDS SUMMARY | 2024-02-10 14:47 | XMS_ITS | Encounter Summary ---
Author Organization [place] Address [address] [facility] [place] [address] Care Team Providers Care Systems Administration Analyst Name Role Phone No Ref-Primary, Physician Primary Care Provider Mica Aguilar MD Unavailable [phone] Reason for Referral * Diagnostic Imaging Ultrasound (Routine) - Pending Review Specialty Diagnoses / Procedures Referred By Contac t Referred To Contact Radiology. 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 Procedures MFM Twins US Comprehensive F/U Nitin Stein MD [address] [place] [address] Phone: tel: fax: Referral ID Status Reason Start Date Expiration Date V isits Requested Visits Authorized [id number] Pending Review 12/19/2023 12/18/2024 1 1 Reason for Visit * Reason Comments Ultrasound RL2/MCA/UAR/BPP- M/D Twins Encounter Details Date Type Department Care Team (Late st Contact Info) Description 12/19/2023 11:30 AM CDT Office Visit [facility] [place] [address] [facility] [address] [place] [phone] Nitin Stein MD [address] [place] [address] affected by growth restriction (Primary Dx); Monochorionic [...] Sign Reading Time Taken Comments Blood Pressure 93/60 12/19/2023 12:30 PM CDT Pulse 72 12/19/2023 12:30 PM CDT Temperature - - Respiratory Rate - - Oxygen Saturation 97% 12/19/2023 12:30 PM CDT Inhaled Oxygen Concentration - - Weight - - Height - - Body Mass Index - - documented in this encounter Patient Instructions * Patient Instructions* Janet Aguillon RN - 12/19/2023 11:30 AM CDT Images from the original note were not included. Patient Education Perfil biof??sico: Sobre esta prueba Biophysical Profile: About This Test ??Qu?? es? Un perfil biof??sico (BPP, por jessica siglas en ingl??s) mide la kel de aden beb?? raúl aden embarazo. Con el BPP se revisa la frecuencia card??umu, el miles muscular, el movimiento y la respiraci??n del beb??. Tambi??n mide la cantidad de l??quido amni??apryl que rodea a aden beb??. Examinar estos cincoaspectos ayuda a aden m??dico a saber c??mo est?? aden beb??. ??Por qu?? se hace esta prueba? Un perfil biof??sico a menudo se hace en el ??ltimo trimestre del embarazo cuando hay alguna harika de c??mo est?? el beb??. Para los embarazos de alto riesgo, esta prueba puede hacerse todas las semanas o dos veces a la semana raúl un embarazo avanzado. ??C??mo se prepara para la prueba? Si fuma, se le pedir?? que pare de fumar por 2 horas antes de la prueba. [place] es porque fumar afecta la frecuencia card??umu y los movimientos del beb??. Claude vez le pidan que tome agua u otros l??quidos edin antes de hacerse la prueba. Podr?? vaciar lavejiga despu??s de la prueba. ??C??mo se hace la prueba? El perfil biof??sico (BPP, por jessica siglas en ingl??s) incluye gilles ecograf??a y, a menudo, unacardiotocograf??a en reposo. Para las pruebas, usted se recostar?? de espaldas sobre gilles villavicencio de examen acolchada. Si le falta el aire o siente aturdimiento al recostarse boca arriba, avise. El t??cnico puede ayudarle a cambiar de posici??n. Cardiotocograf??a en reposo Se le colocar??n dos cinturones el??sticos con sensores en forma horizontal sobre el abdomen. Un sensor registra la frecuencia card??umu de aden beb?? con ondas sonoras reflejadas (ecograf??a Doppler).El otro sensor mide la duraci??n de jessica contracciones, si est?? teniendo alguna. Puede o??r el latido card??aco de aden beb?? hood un pitido. Claude vez lo ke impreso en un gr??fico. Claude vez le pidan que presione un bot??n en la m??quina cuando se mueva aden beb?? o cuando usted tenga gilles contracci??n. [place] ayuda a aden m??dico a observar c??mo reacciona el coraz??n de aden beb?? al movimiento y a las contracciones. Si no hay mucho movimiento, podr??a ser porque el beb?? est?? dormido. Si esto sucede raúl la prueba, el t??cnico podr??a tratar de despertar al beb?? con un ruido katheryn o haciendo que usted comao iris algo. Ecograf??a Le esparcir??n un gel sobre el abdomen. [place] ayuda a la transmisi??n de las ondas de juan r. Le presionar??n un sensor manual pastor??o contra el gel en la piel y se lo pasar??n por el abdomen unas pocas veces. Claude vez pueda mirar la pantalla para donya la imagen de aden beb?? raúl la prueba. ??Cu??nto tiempo dura la prueba? La cardiotocograf??a en reposo dura aproximadamente de 20 a 40 minutos. La ecograf??a dura aproximadamente de 30 a 60 minutos. ??Qu?? ocurre despu??s de la prueba? El m??dico leer?? los resultados de la prueba y hablar?? con usted acerca de los mismos. Tambi??n sabr?? si tienen que hacerle m??s pruebas. Es probable que pueda irse a casa de inmediato. Depende del motivo por el que se realiz?? la prueba. Puede volver a jessica actividades habituales inmediatamente. ??D??nde puede encontrar m??s informaci??n en ingl??s? Vaya a [email or web address]://[email or web address].[email or web address].net/patientedes Escriba X659 en la b??squeda para aprender m??s acerca de Perfil biof??sico: Sobre esta prueba. Revisado: 2022 Versi??n del contenido: 14.2 ?? 2023 [employer]. Las instrucciones de cuidado fueron adaptadas bajo licencia por aden profesional de atenci??n m??dica. Si usted tiene preguntas sobre gilles afecci??n m??dica o sobre estas instrucciones, siempre preguntea aden profesional de kel. [employer] niega toda garant??a o responsabilidad por aden uso de esta informaci??n. documented in this encounter Progress Notes * Nitin Stein MD - 12/19/2023 11:30 AM CDT The patient was seen for an ultrasound in the [facility] clinic today. For a detailed report of the ultrasound examination, please see the ultrasound report which can be found under the imaging tab. If you have questions regarding today's evaluation or if we can be of further service, please contact the [facility]. Nitin Stein M.D. Maternal -Medicine Specialist documented in this encounter Nursing Notes * Janet Aguillon RN - 12/19/2023 11:30 AM CDT sprinkler fitter helper used via IPAD during MFM appointment. Patient reports active movement x2, denies pain, contractions, leaking of fluid, or bleeding.Patient denies headache, visual changes, nausea/vomiting, epigastric pain related to preeclampsia. Education provided to patient on growth restriction surveillance. SBAR given to MFM MD, see their note in Epic. NST Performed due to FGR Twin A. reviewed efm tracing. See NST/BPP Doc Flowsheet tab. documented in this encounter Plan of Treatment Not on file documented as of this encounter Results * [facility] Twins US Comprehensive F/U (12/26/2023 3:42 PM [...] CDT [facility] Surveillance US ----- Pat. Name: KYARA MISHRA Study Date: 12/26/2023 1:38pm Pat. NO: [id number] Referring MD: NITIN STEIN Site: Instrument Assembly Supervisor: Jason Thompson RDMS : 2000 Age: 23 [...] her partner with the assistance of a sprinkler fitter helper via iPad. The patient brought a Post-It [...] mono-di twins, delivery should be facilitated between 58s3y-57j8n. The patient and her partner were surprised by this and are not yet ready for delivery. We have coordinated with the digital marketing associate surgical faculty at our primary hospital [facility], and will work to coordinate delivery next week at 34 weeks. We have been able to schedule her delivery via C/S (with cerclage removal) with Dr. Linda Vizcarra next week. No tubal ligation is indicated (patient is a primigravida and does not want tubal at this time). We have called her primary Ob team in [place] to assist with surgical prep as the [...] medical record, and communicating with other health primary care provider and/or care coordination. Procedure Note Heidi Swain MD - 12/26/2023 [facility] ----- Pat. Name: KYARA MISHRA Study Date: 12/26/2023 1:38pm Pat. NO: [id number] Referring MD: NITIN STEIN Site: Instrument Assembly Supervisor: Jason Thompson RDMS : 2000 Age: 23 [...] and herpartner with the assistance of a sprinkler fitter helper via iPad. The patientbrought a Post-It note [...] in mono-di twins,delivery should be facilitated between 00e0i-23e0d. The patient and herpartner were surprised by this and are not yet ready for delivery. We have coordinated with the OBGyn surgical faculty at our primary hospital [facility], and will workto coordinate delivery next week at 34 weeks. We have been able to schedule her delivery via C/S(with cerclage removal) with Dr. Linda Vizcarra next week. No tubal ligationis indicated (patient is a primigravida and does not want tubal at this time). [facility] [place] to assist with surgical prep as the [...] electronic medical record, andcommunicating with other health primary care provider and/or carecoordination. IMPRESSION ----- Monochorionic diamniotic twin [...] or TAPS at this time. 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
--- OUTSIDE RECORDS SUMMARY | 2024-02-10 14:47 | XMS_ITS | Encounter Summary ---
Author Organization [place] Address [address] [place] [address] Care Team Providers Care Hub Lead Name Role Phone No Ref-Primary, Physician Primary Care Provider Mica Aguilar MD Unavailable [phone] Encounter Details Date Type Department Care Team (Latest Contact Info) Description 12/26/2023 Travel Social History Tobacco Use Types Packs/Day [...] on filedocumented in this encounter Care Teams Hub Lead Relationship Specialty Start Date End Date No Ref-Primary, Physician PCP - General 07/22/23 Mica Aguilar MD [address] [place], [place] [address] Assigned OBGYN Provider 08/31/2312/29 documented as of this encounter
--- OUTSIDE RECORDS SUMMARY | 2024-02-10 14:47 | XMS_ITS | Encounter Summary ---
Author Organization [place] Address [address] [place] [address] Care Team Providers Care Accounting System Expert Name Role Phone No Ref-Primary, Physician Primary Care Provider Mica Aguilar MD Unavailable [phone] Encounter Details Date Type Department Care Team (Latest Contact Info) Description 12/30/2023 Travel Social History Tobacco Use Types Packs/Day [...] on filedocumented in this encounter Care Teams Accounting System Expert Relationship Specialty Start Date End Date No Ref-Primary, Physician PCP - General 07/22/23 Mica Aguilar MD [address] [place], [place] [address] Assigned OBGYN Provider 08/31/2312/29 documented as of this encounter
--- OUTSIDE RECORDS SUMMARY | 2024-02-10 14:48 | XMS_ITS | Encounter Summary ---
Author Organization [place] Address [facility] [address] Care Team Providers Care Master Brewer Name Role Phone No Ref-Primary, Physician Primary Care Provider Mica Aguilar MD Unavailable [phone] Reason for Referral * Diagnostic Imaging Ultrasound (Routine) - Pending Review Specialty Diagnoses / Procedures Referred By Tami peoples Referred To Contact Radiology. 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 Procedures MFM Twins Comprehensive F/U Raya Dickens MD [address] [facility] [address] [place] [address] Phone: tel: fax: Referral ID Status Reason Start Date Expiration Date V isits Requested Visits Authorized [id number] Pending Review 10/24/2023 10/23/2024 1 1 Reason for Visit * Diagnostic Imaging Ultrasound (Routine) - Pending Review Specialty Diagnoses / Procedures Referred By Tami peoples Referred To Contact Radiology. 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 Procedures MFM Twins Comprehensive F/U Raya Dickens MD [address] [place] [address] Phone: tel: fax: Referral ID Status Reason Start Date Expiration Date V isits Requested Visits Authorized [id number] Pending Review 10/24/2023 10/23/2024 1 1 Encounter Details Date Type Department Care Team (Latest Contact Info) Description 12/05/2023 1:58 PM CDT - 12/05/2023 11:59 PM CDT Hospital Encounter [facility] [place] [address] [place] [address] Didi Daniel MD [address] [facility] [address] [place] [address] Monochorionic diamniotic twin gestation in second trimester [...] of Discharge acetaminophen (TYLENOL) 325 MG tabletIndications: Cervical shortening [...] polycythemia syndrome. Narrative 12/05/2023 2:46 PM CDT Surveillance US ----- Pat. Name: ROLANDO VILLEGAS KRISTYN Study Date: 12/05/2023 2:09pm Pat. NO: [id number] Referring MD: RAYA SHAH Site: Pain Medicine Physician: Linda Lock RDMS : 2000 Age: 23 ----- INDICATION ----- Monochorionic, Diamniotic Twin gestation. METHOD ----- Transabdominal ultrasound examination. View: Sufficient. ----- Twin . Number of fetuses: 2. Monochorionic-diamniotic DATING ----- Date Details Gest. age FERNANDO LMP 04/29/2023 Cycle: irregular cycle 31 w + 3 d 02/03/2024 Previous U/S 07/18/2023 GA, GA 10 w + 3 d 30 w + 3 d 02/10/2024 Assigned dating based on ultrasound (GA), selected on 12/05/2023 30 w + 3 d 02/10/2024 Fetus 1: [...] 1: DOPPLER ----- Umbilical Artery: normal PI 1.18 88% Kunal HR 144 bpm Mid Cerebral Artery: normal PS 49.00 cm/s PS 1.19 MoM Fetus 2: DOPPLER ----- Umbilical Artery: normal PI 1.12 81% Kunal HR 143 bpm Mid Cerebral Artery: normal PS 46.65 cm/s PS 1.13 MoM Fetus 1: TTTS ASSESSMENT ----- Cardiac [...] record, and communicating with other health healthcare administration internship and/or care coordination. Procedure Note Didi Daniel MD - 12/05/2023 Surveillance ----- Pat. Name: KRISTYN MISHRA Study Date: 12/05/2023 2:09pm Pat. NO: [id number] Referring MD: RAYA SHAH Site: Pain Medicine Physician: Linda LockKALIE : 2000 Age: 23 ----- INDICATION ----- [...] medical record, andcommunicating with other health healthcare administration internship and/or carecoordination. IMPRESSION ----- Monochorionic diamniotic twin [...] twin transfusionsyndrome or twin anemia polycythemia syndrome. us Raya Dickens MD [facility] ORDERABLES Edit ed Result - Final documented in this encounter Visit Diagnoses Diagnosis Monochorionic diamniotic twin gestation in second trimester documented in this encounter Care Teams Master Brewer Relationship Specialty Start Date End Date No Ref-Primary, Physician PCP - General 07/22/23 Mica Aguilar MD [address] [place] [address] Assigned OBGYN Provider 08/31/2312/29 documented as of this encounter
--- OUTSIDE RECORDS SUMMARY | 2024-02-10 14:48 | XMS_ITS | Encounter Summary ---
Author Organization [place] Address [facility]0 [facility] [place] [address] Care Team Providers Care Casting Carrier Name Role Phone No Ref-Primary, Physician Primary Care Provider Mica Aguilar MD Unavailable [phone] Reason for Referral * Diagnostic Imaging Ultrasound (Routine) - Pending Review Specialty Diagnoses / Procedures Referred By Tami peoples Referred To Contact Radiology. 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 Procedures MFM Twins Comprehensive F/U Raya Dickens MD [address] [facility] [address] [place] [address] Phone: tel: fax: Referral ID Status Reason Start Date Expiration Date V isits Requested Visits Authorized [id number] Pending Review 10/24/2023 10/23/2024 1 1 Reason for Visit * Diagnostic Imaging Ultrasound (Routine) - Pending Review Specialty Diagnoses / Procedures Referred By Tami poeples Referred To Contact Radiology. 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 Procedures MFM Twins Comprehensive F/U Raya Dickens MD [address] [place] [address] [place] [address] Phone: tel: fax: Referral ID Status Reason Start Date Expiration Date V isits Requested Visits Authorized [id number] Pending Review 10/24/2023 10/23/2024 1 1 Encounter Details Date Type Department Care Team (Latest Contact Info) Description 11/21/2023 9:59 AM CDT - 11/21/2023 11:59 PM CDT Hospital Encounter [facility] [place] [address] [address] [place] [address] Raya Dickens MD [address] [place] [address] Nitin Morris MD [address] [place] [address] Monochorionic diamniotic twin gestation in [...] Diagnosis Comments MFM TWINS COMPREHENSIVE F/U Routine 11/21/2023 11:19 AM CDT [...] polycythemia syndrome. Narrative 11/21/2023 11:54 AM CDT Comp Follow Up ----- Pat. Name: KRISTYN MISHRA Study Date: 11/21/2023 9:59am Pat. NO: [id number] Referring MD: RAYA SHAH Site: Rn Social Services: [address] RDMS : 2000 Age: 23 ----- INDICATION ----- Reevaluate growth, Twin A - EFW 11% on previous ultrasound Monochorionic, Diamniotic Twin gestation METHOD ----- Transabdominal ultrasound examination. View: Sufficient ----- Twin . Number of fetuses: 2. Monochorionic-diamniotic Membrane Description: thin dividing membrane visualized between fetuses 1 and 2 DATING ----- Date Details Gest. age FERNANDO LMP 04/29/2023 Cycle: irregular cycle 29 w + 3 d 02/03/2024 Previous U/S 07/18/2023 GA, GA 10 w + 3 d 28 w + 3 d 02/10/2024 U/S Fetus 1 11/21/2023 based upon AC, BPD, Femur, HC 27 w + 5 d 02/15/2024 U/S Fetus 2 based upon AC, BPD, Femur, HC 28 w + 1 d 02/12/2024 Assigned dating based on ultrasound (GA), selected on 11/07/2023 28 w + 3 d 02/10/2024 Fetus 1: [...] 5.6 cm Fetus 1: BIOMETRY ----- BPD 70.2 mm 28w 1d Hadlock OFD 92.0 mm 27w 2d Nicolaides HC 258.7 mm 28w 1d Hadlock AC 233.9 mm 27w 5d 22% Hadlock Femur 49.3 mm 26w 4d Hadlock Humerus 45.3 mm 26w 6d Celestina Weight Calculation: EFW 1,071 g 11% Hadlock EFW (lb,oz) 2 lb 6 oz EFW by Hadlock (DRD-[id number]-FL) EFW discordance 9.2 % Head / Face / Neck Biometry: Overhauler Helper 5.5 mm Fetus 2: BIOMETRY ----- BPD 69.9 mm 28w 1d Hadlock OFD 94.3 mm 27w 6d Nicolaides HC 263.3 mm 28w 5d Hadlock AC 247.1 mm 29w 0d 59% Hadlock Femur 49.7 mm 26w 5d Hadlock Humerus 45.2 mm 26w 6d Celestina Weight Calculation: EFW 1,180 g 27% Hadlock EFW (lb,oz) 2 lb 10 oz EFW by Hadlock ([id number]-FL) EFW discordance 9.2 % Fetus 1: ANATOMY ----- The following structures appear normal: Abdomen Bladder. sex: female. Fetus 2: ANATOMY ----- The following structures appear normal: Abdomen Bladder. sex: female. Fetus 1: DOPPLER ----- Umbilical Artery: normal. Sampling site: midcord PI 1.25 89% Kunal HR 151 bpm Mid Cerebral Artery: normal PS 37.16 cm/s PS 0.99 MoM Fetus 2: DOPPLER ----- Umbilical Artery: normal. Sampling site: midcord PI 1.18 82% Kunal HR 173 bpm Mid Cerebral Artery: normal PS 46.44 cm/s PS 1.23 MoM RECOMMENDATION ----- Thank-you for referring your patient [...] medical record, and communicating with other health associate director career services and/or care coordination. Procedure Note Nitin Morris MD - 11/21/2023 Comp Follow Up ----- Pat. Name: KRISTYN MISHRA Study Date: 11/21/2023 9:59am Pat. NO: [id number] Referring MD: RAYA SHAH Site: Rn Social Services: [address] RDMS : 2000 Age: 23 [...] EFW (lb,oz) 2 lb 6oz EFW by Hadlock(PBN-CL-AX-FL) EFW discordance 9.2% Head / Face / Neck Biometry: Overhauler Helper 5.5mm Fetus 2: BIOMETRY ----- BPD 69.9mm 28w 1dHadlock OFD 94.3mm 27w 6dNicolaides HC 263.3mm 28w 5dHadlock AC 247.1mm 29w 0d 59%Hadlock Femur 49.7mm 26w 5dHadlock Humerus 45.2mm 26w 6dJeanty Weight Calculation: EFW 1,180g 27%Hadlock EFW (lb,oz) 2 lb 10oz EFW by Hadlock(YVP-VC-PE-FL) EFW discordance 9.2% Fetus 1: ANATOMY ----- [...] electronic medical record, andcommunicating with other health associate director career services and/or carecoordination. IMPRESSION ----- Monochorionic diamniotic twin [...] anemia polycythemia syndrome. us Raya Dickens MD [facility] ORDERABLES Edit ed Result - Final documented in this encounter Visit Diagnoses Diagnosis Monochorionic diamniotic twin gestation in second trimester documented in this encounter Care Teams Casting Carrier Relationship Specialty Start Date End Date No Ref-Primary, Physician PCP - General 07/22/23 Mica Aguilar MD [address] [address] Assigned OBGYN Provider 08/31/2312/29 documented as of this encounter
--- OUTSIDE RECORDS SUMMARY | 2024-02-10 14:48 | XMS_ITS | Encounter Summary ---
Author Organization [place] Address [facility]0 [facility] [place] [address] Care Team Providers Care Chopping Machine Operator Name Role Phone No Ref-Primary, Physician Primary Care Provider Mica Aguilar MD Unavailable [phone] Reason for Referral * Diagnostic Imaging Ultrasound (Routine) - Pending Review Specialty Diagnoses / Procedures Referred By Tami peoples Referred To Contact Radiology. 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 Procedures MFM Twins US Comprehensive F/U MFM Twins US Comprehensive F/U Raay Dickens MD [address] [place] [address] Phone: tel: fax: Referral ID Status Reason Start Date Expiration Date V isits Requested Visits Authorized [id number] Pending Review 10/24/2023 10/23/2024 1 1 Reason for Visit * Diagnostic Imaging Ultrasound (Routine) - Pending Review Specialty Diagnoses / Procedures Referred By Tami peoples Referred To Contact Radiology. 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 Procedures MFM Twins US Comprehensive F/U MFM Twins US Comprehensive F/U Raya Dickens MD [address] [address] [place] [address] Phone: tel: fax: Referral ID Status Reason Start Date Expiration Date V isits Requested Visits Authorized [id number] Pending Review 10/24/2023 10/23/2024 1 1 Encounter Details Date Type Department Care Team (Latest Contact Info) Description 11/07/2023 1:01 PM CDT - 11/07/2023 11:59 PM CDT Hospital Encounter [facility] [place] [address] [facility] [address] [place] [address] Angelica Wright MD [address] [facility] [address] [place] [address] Monochorionic diamniotic twin gestation in [...] polycythemia syndrome. Narrative 11/07/2023 2:56 PM CDT Comp Follow Up ----- Pat. Name: KRISTYN MISHRA Study Date: 11/07/2023 1:25pm Pat. NO: [id number] Referring MD: RAYA SHAH Site: Service Station Attendant: Sindhu Maurer RDMS : 2000 Age: 23 ----- INDICATION ----- Reevaluate growth, Twin A - EFW 12% on previous ultrasound Monochorionic, Diamniotic Twin gestation METHOD ----- Transabdominal ultrasound examination. View: Suboptimal view: limited by position ----- Twin . Number of fetuses: 2. Monochorionic-diamniotic DATING ----- Date Details Gest. age FERNANDO LMP 04/29/2023 Cycle: irregular cycle 27 w + 3 d 02/03/2024 Previous U/S 07/18/2023 GA, GA 10 w + 3 d 26 w + 3 d 02/10/2024 U/S Fetus 1 11/07/2023 based upon AC, BPD, Femur, HC 25 w + 4 d 02/16/2024 U/S Fetus 2 based upon AC, BPD, Femur, HC 25 w + 6 d 02/14/2024 Assigned dating based on ultrasound (GA), selected on 11/07/2023 26 w + 3 d 02/10/2024 Fetus 1: [...] 7.4 cm Fetus 1: BIOMETRY ----- BPD 64.1 mm 25w 6d Hadlock OFD 84.5 mm 25w 3d Nicolaides HC 238.1 mm 25w 6d Hadlock Cerebellum tr 29.8 mm 26w 3d Nicolaides AC 216.5 mm 26w 1d 32% Hadlock Femur 44.0 mm 24w 3d Hadlock Humerus 41.9 mm 25w 2d Celestina Weight Calculation: EFW 818 g 11% Hadlock EFW (lb,oz) 1 lb 13 oz EFW by Hadlock ([id number]-TJ-ET-FL) EFW discordance 8.2 % Head / Face / Neck Biometry: Refresh Technician 5.2 mm CM 4.2 mm Fetus 2: BIOMETRY ----- BPD 63.7 mm 25w 5d Hadlock OFD 87.1 mm 26w 0d Nicolaides HC 241.1 mm 26w 1d Hadlock Cerebellum tr 30.0 mm 26w 4d Nicolaides AC 226.7 mm 27w 0d 61% Hadlock Femur 44.7 mm 24w 5d Hadlock Weight Calculation: EFW 891 g 26% Hadlock EFW (lb,oz) 1 lb 15 oz EFW by Hadlock (SVE-WB-RS-FL) EFW discordance 8.2 % Head / Face / Neck Biometry: Refresh Technician 7.7 mm CM 4.0 mm Fetus 1: ANATOMY ----- The following structures appear normal: Head / Neck Cranium. Head size. Head shape. Lateral ventricles. Midline falx. Cavum septi pellucidi. Cerebellum. Cisterna magna. Thalami. Face Lips. Profile. Nose. Heart / Thorax RVOT view. LVOT view. 2-vfycsv-mborphe view. Diaphragm. Abdomen Stomach. Kidneys. Bladder. Genitals. Spine Cervical spine. Thoracic spine. Lumbar spine. Sacral spine. The following structures were documented previously: Heart / Thorax 4-chamber view. sex: female. Fetus 2: ANATOMY ----- The following structures appear normal: Head / Neck Cranium. Head size. Head shape. Lateral ventricles. Midline falx. Cavum septi pellucidi. Cerebellum. Cisterna magna. Thalami. Face Lips. Nose. Heart / Thorax RVOT view. LVOT view. 3-xhxgof-ebnzucm view. Diaphragm. Abdomen Stomach. Kidneys. Bladder. Spine Cervical spine. Thoracic spine. Lumbar spine. Sacral spine. The following structures were documented previously: Face Profile. Heart / Thorax 4-chamber view. sex: female. Fetus 1: DOPPLER ----- Umbilical Artery: normal PI 1.32 90% Kunal HR 153 bpm Mid Cerebral Artery: normal PS 34.63 cm/s PS 1.01 MoM Fetus 2: DOPPLER ----- Umbilical Artery: normal PI 0.93 23% Kunal HR 183 bpm Mid Cerebral Artery: normal PS 39.86 cm/s PS 1.16 MoM MATERNAL STRUCTURES ----- Cervix Suboptimal Right Ovary [...] the patient (reviewing medical records/tests), in direct onrl-ci-hflb contact with the patient during her visit with the majority spent counseling and discussing the plan of care and documenting the visit in the electronic medical record. Please see note for details. Procedure Note Angelica Wright MD - 11/07/2023 Comp Follow Up ----- Pat. Name: KRISTYN MISHRA Study Date: 11/07/2023 1:25pm Pat. NO: [id number] Referring MD: RAYA SHAH Site: Service Station Attendant: Sindhu Maurer RDMS : 2000 Age: [...] EFW (lb,oz) 1 lb 13oz EFW by Hadlock(RCQ-IC-VU-FL) EFW discordance 8.2% Head / Face / Neck Biometry: Refresh Technician 5.2mm CM 4.2mm Fetus 2: BIOMETRY ----- BPD 63.7mm 25w 5dHadlock OFD 87.1mm 26w 0dNicolaides HC 241.1mm 26w 1dHadlock Cerebellum tr 30.0mm 26w 4dNicolaides AC 226.7mm 27w 0d 61%Hadlock Femur 44.7mm 24w 5dHadlock Weight Calculation: EFW 891g 26%Hadlock EFW (lb,oz) 1 lb 15oz EFW by Hadlock([id number]-[id number]-FL) EFW discordance 8.2% Head / Face / Neck Biometry: Refresh Technician 7.7mm CM 4.0mm Fetus 1: ANATOMY ----- The following structures appear normal: Head / Neck Cranium. Head size. Head shape.Lateral ventricles. Midline falx. Cavum septi pellucidi. Cerebellum.Cisterna magna. Thalami. Face Lips. Profile. Nose. Heart / Thorax RVOT view. LVOT view. 8-enuvhd-srsywkdltap. Diaphragm. Abdomen Stomach. Kidneys. Bladder. Genitals. Spine Cervical spine. Thoracic spine.Lumbar spine. Sacral spine. The following structures were documented previously: Heart / Thorax 4-chamber view. sex: female. Fetus 2: ANATOMY ----- The following structures appear normal: Head / Neck Cranium. Head size. Head shape.Lateral ventricles. Midline falx. Cavum septi pellucidi. Cerebellum.Cisterna magna. Thalami. Face Lips. Nose. Heart / Thorax RVOT view. LVOT view. 8-umugxy-kgmxxcdkean. Diaphragm. Abdomen Stomach. Kidneys. Bladder. Spine Cervical [...] see the patient (reviewing medical records/tests), in oreenhvozt-id-zqky contact with the patient during her visit [...] anemia polycythemia syndrome. us Raya Dickens MD [facility] ORDERABLES Edit ed Result - Final documented in this encounter Visit Diagnoses Diagnosis Monochorionic diamniotic twin gestation in second trimester documented in this encounter Care Teams Chopping Machine Operator Relationship Specialty Start Date End Date No Ref-Primary, Physician PCP - General 07/22/23 Mica Aguilar MD [address] [address] Assigned OBGYN Provider 08/31/2312/29 documented as of this encounter
--- OUTSIDE RECORDS SUMMARY | 2024-02-10 14:48 | XMS_ITS | Encounter Summary ---
Author Organization [place] Address Formerly [facility] [place] [address] Care Team Providers Care Pants Busheler Name Role Phone No Ref-Primary, Physician Primary Care Provider Mica Aguilar MD Unavailable [phone] Reason for Referral * Diagnostic Imaging Ultrasound (Routine) - Pending Review Specialty Diagnoses / Procedures Referred By Tami peoples Referred To Contact Radiology. 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 Procedures MFM Twins Comprehensive F/U Raya Dickens MD [address] [facility] [address] [place] [address] Phone: tel: fax: Referral ID Status Reason Start Date Expiration Date V isits Requested Visits Authorized [id number] Pending Review 10/24/2023 10/23/2024 1 1 Reason for Visit * Diagnostic Imaging Ultrasound (Routine) - Pending Review Specialty Diagnoses / Procedures Referred By Tami peoples Referred To Contact Radiology. 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 Procedures MFM Twins Comprehensive F/U Raya Dickens MD [address] [place] [address] Phone: tel: fax: Referral ID Status Reason Start Date Expiration Date V isits Requested Visits Authorized [id number] Pending Review 10/24/2023 10/23/2024 1 1 Encounter Details Date Type Department Care Team (Latest Contact Info) Description 12/19/2023 10:40 AM CDT - 12/19/2023 11:59 PM CDT Hospital Encounter [facility] [place] [address] [facility] [address] [place] [address] Nitin Morris MD [address] [place], [place] [address] Monochorionic diamniotic twin gestation in second trimester [...] Comments MFM TWINS US COMPREHENSIVE F/U Routine 12/19/2023 11:54 AM CDT Monochorionic diamniotic twin gestation in second trimester documented in this encounter Results * MFM Twins US Comprehensive F/U (12/19/2023 11:54 AM CDT) Anatomical Region Laterality Modality Ultrasound 12/19/2023 10:5 5 AM CDT Impressions 12/19/2023 5:11 PM CDT IMPRESSION ----- Monochorionic diamniotic twin gestation at 32w 3d gestational age. Fetus 1 (new growth restriction) 1. None of the anomalies commonly detected by ultrasound were evident in the detailed anatomic survey described above. 2. Growth parameters and estimated weight were consistent with growth restriction with the EFW at 9%. 3. The amniotic fluid volume appeared normal. [...] for gestational age. The inter-twin discordance was 12.6%. 3. The amniotic fluid volume appeared normal. A normal bladder was visualized. 4. The umbilical artery Doppler studies were within normal limits. 5. The middle cerebral artery Doppler studies were within normal limits. Today's ultrasound does not support a diagnosis of twin twin transfusion syndrome or twin anemia polycythemia syndrome. Narrative 12/19/2023 5:11 PM CDT Comp Follow Up ----- Pat. Name: KRISTYN MISHRA Study Date: 12/19/2023 10:55am Pat. NO: [id number] Referring MD: RAYA SHAH Site: Urban Renew[employer] Manager: Carmen Zurita RDMS : 2000 Age: 23 ----- INDICATION ----- Monochorionic, Diamniotic Twin gestation. METHOD ----- Transabdominal ultrasound examination. View: Sufficient. ----- Twin . Number of fetuses: 2. Monochorionic-diamniotic Membrane Description: thin dividing membrane visualized between fetuses 1 and 2 DATING ----- Date Details Gest. age FERNANDO LMP 04/29/2023 Cycle: irregular cycle 33 w + 3 d 02/03/2024 Previous U/S 07/18/2023 GA, GA 10 w + 3 d 32 w + 3 d 02/10/2024 U/S Fetus 1 12/19/2023 based upon AC, BPD, Femur, HC 31 w + 3 d 02/17/2024 U/S Fetus 2 based upon AC, BPD, Femur, HC 31 w + 5 d 02/15/2024 Assigned dating based on ultrasound (GA), selected on 12/05/2023 32 w + 3 d 02/10/2024 Fetus 1: GENERAL EVALUATION ----- Cardiac activity present. FHR 136 bpm. movements: present. Presentation: cephalic, presenting, maternal right Placenta: Anterior, thin dividing membrane Umbilical cord: 3 vessel cord Amniotic fluid: Amount of AF: normal. MVP 6.8 cm Fetus 2: GENERAL EVALUATION ----- Cardiac activity present. movements: present. Presentation: transverse with head to maternal right, maternal left, superior Placenta: Anterior, thin dividing membrane Umbilical cord: 3 vessel cord Amniotic fluid: Amount of AF: normal. MVP 6.6 cm Fetus 1: BIOMETRY ----- BPD 80.2 mm 32w 1d Hadlock OFD 104.2 mm 30w 5d Nicolaides HC 293.9 mm 32w 3d Hadlock AC 271.3 mm 31w 2d 17% Hadlock Femur 56.7 mm 29w 5d Hadlock Humerus 50.4 mm 29w 4d Celestina Weight Calculation: EFW 1,673 g 9% Hadlock EFW (lb,oz) 3 lb 11 oz EFW by Hadlock ([id number]) EFW discordance 12.6 % Fetus 2: BIOMETRY ----- BPD 76.9 mm 30w 6d Hadlock OFD 103.1 mm 30w 3d Nicolaides HC 287.3 mm 31w 4d Hadlock Cerebellum tr 38.1 mm 32w 4d Nicolaides AC 291.6 mm 33w 1d 71% Hadlock Femur 59.5 mm 31w 0d Hadlock Weight Calculation: EFW 1,915 g 32% Hadlock EFW (lb,oz) 4 lb 4 oz EFW by Hadlock ([id number]) EFW discordance 12.6 % Head / Face / Neck Biometry: Roof Panel Hanger 7.4 mm CM 6.1 mm Fetus 1: ANATOMY ----- The following structures appear normal: Head / Neck Cranium. Head size. Head shape. Lateral ventricles. Midline falx. Thalami. Heart / Thorax 4-chamber view. RVOT view. LVOT view. 0-iwarjc-tskyjso view. Diaphragm. Abdomen Stomach. Kidneys. Bladder. Genitals. Spine Cervical spine. Thoracic spine. Lumbar spine. Sacral spine. The following structures were documented previously: Head / Neck Cavum septi pellucidi. Cerebellum. Cisterna magna. Face Lips. Profile. Nose. sex: female. Fetus 2: ANATOMY ----- The following structures appear normal: Head / Neck Cranium. Head size. Head shape. Lateral ventricles. Midline falx. Cavum septi pellucidi. Cerebellum. Cisterna magna. Thalami. Face Lips. Profile. Nose. Heart / Thorax 4-chamber view. RVOT view. LVOT view. 4-bhfqio-uithgin view. Diaphragm. Abdomen Stomach. Kidneys. Bladder. Spine Cervical spine. Thoracic spine. Lumbar spine. Sacral spine. sex: female. Fetus 1: DOPPLER ----- Umbilical Artery: PI 1.17 91% Kunal HR 143 bpm Mid Cerebral Artery: normal PS 59.31 cm/s PS 1.31 MoM Fetus 2: DOPPLER ----- Umbilical Artery: normal PI 1.17 91% Kunal HR 131 bpm Mid Cerebral Artery: normal PS 47.52 cm/s PS 1.05 MoM MATERNAL STRUCTURES ----- Cervix Suboptimal Right Ovary Not examined Left Ovary Not examined Fetus 1: NON STRESS TEST ----- NST interpretation: reactive. Test duration 45 min. Baseline FHR 135 bpm. Baseline variability: moderate. Accelerations: present. Decelerations: absent. Uterine activity: present Fetus 2: NON STRESS TEST ----- NST interpretation: reactive. Test duration 45 min. Baseline FHR 130 bpm. Baseline variability: moderate. Accelerations: present. Decelerations: absent. Uterine activity: present RECOMMENDATION ----- Thank-you for referring your patient to assess for signs of TTTS/TAPS due to monochorionic twin . We discussed the findings on today's ultrasound with the patient. Selective growth restriction We discussed that there are 3 main types of selective growth restriction depending on the blood flow through the umbilical cord. 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 We discussed that this type is often due to balanced A-A and A-V shunting and has a low risk of deterioration with excellent outcomes. We discussed that Type 2 and Type 3 are associated with either persistent or intermittent absent end diastolic flow and are more likely to be associated with adverse outcomes. We discussed that this might also indicate an increased risk of developing TTTS. - Weekly TTTS/TAPS evaluations with NST - Repeat growth in 3 weeks. - Discussed would anticipate delivery at 36-37 weeks if parameters remain stable, though will refine delivery recommendations at the next growth US. - Cerclage removal at 36 weeks, unless otherwise clinically indicated sooner. - Advised patient to discuss mode of delivery with her primary clinic, though discussed potential scenarios with twins. Return to primary provider for continued care. If you have questions regarding today's evaluation or if we can be of further service, please contact the [facility]. anomalies may be present but not detected I spent a total of 20 minutes on the date of this encounter including preparing to see the patient (reviewing medical records/tests), counseling and discussing the plan of care, documenting the visit in the electronic medical record, and communicating with other health youth career specialist and/or care coordination. Procedure Note Nitin Morris MD - 12/19/2023 Comp Follow Up ----- Pat. Name: KRISTYN MISHRA Study Date: 12/19/2023 10:55am Pat. NO: [id number] Referring MD: RAYA SHAH Site: Urban Renewal Manager: Carmen Zurita RDMS : 2000 Age: 23 ----- INDICATION ----- Monochorionic, Diamniotic Twin gestation. METHOD ----- Transabdominal ultrasound examination. View: Sufficient. ----- Twin . Number of fetuses: 2. Monochorionic-diamniotic Membrane Description: thin dividing membrane visualized between fetuses 1and 2 DATING ----- DateDetailsGest. age FERNANDO LMP 04/29/2023ycle: irregular cycle33 w + 3 d 02/03/2024 Previous U/S 07/18/2023 GA, GA10 w + 3 d32 w + 3 d 02/10/2024 U/S Fetus 1 12/19/2023 basedupon AC, BPD, Femur, HC 31w + 3 d 02/17/2024 U/S Fetus 2based upon AC, BPD, Femur, HC31 w + 5 d 02/15/2024 Assigned dating based on ultrasound (GA), selected on12/05/2023 32w + 3 d 02/10/2024 Fetus 1: GENERAL EVALUATION ----- Cardiac activity present. FHR 136 bpm. movements: present.Presentation: cephalic, presenting, maternal right Placenta: Anterior, thin dividing membrane Umbilical cord: 3 vessel cord Amniotic fluid: Amount of AF: normal. MVP 6.8 cm Fetus 2: GENERAL EVALUATION ----- Cardiac activity present. movements: present. Presentation:transverse with head to maternal right, maternal left, superior Placenta: Anterior, thin dividing membrane Umbilical cord: 3 vessel cord Amniotic fluid: Amount of AF: normal. MVP 6.6 cm Fetus 1: BIOMETRY ----- BPD 80.2mm 32w 1dHadlock OFD 104.2mm 30w 5dNicolaides HC 293.9mm 32w 3dHadlock AC 271.3mm 31w 2d 17%Hadlock Femur 56.7mm 29w 5dHadlock Humerus 50.4mm 29w 4dJeanty Weight Calculation: EFW 1,673g 9%Hadlock EFW (lb,oz) 3 lb 11oz EFW by Hadlock([id number]) EFW discordance 12.6% Fetus 2: BIOMETRY ----- BPD 76.9mm 30w 6dHadlock OFD 103.1mm 30w 3dNicolaides HC 287.3mm 31w 4dHadlock Cerebellum tr 38.1mm 32w 4dNicolaides AC 291.6mm 33w 1d 71%Hadlock Femur 59.5mm 31w 0dHadlock Weight Calculation: EFW 1,915g 32%Hadlock EFW (lb,oz) 4 lb 4oz EFW by Hadlock([id number]) EFW discordance 12.6% Head / Face / Neck Biometry: Roof Panel Hanger 7.4mm CM 6.1mm Fetus 1: ANATOMY ----- The following structures appear normal: Head / Neck Cranium. Head size. Head shape.Lateral ventricles. Midline falx. Thalami. Heart / Thorax 4-chamber view. RVOT view. LVOT view.8-hensqx-zetygal view. Diaphragm. Abdomen Stomach. Kidneys. Bladder. Genitals. Spine Cervical spine. Thoracic spine.Lumbar spine. Sacral spine. The following structures were documented previously: Head / Neck Cavum septi pellucidi. Cerebellum.Cisterna magna. Face Lips. Profile. Nose. sex: female. Fetus 2: ANATOMY ----- The following structures appear normal: Head / Neck Cranium. Head size. Head shape.Lateral ventricles. Midline falx. Cavum septi pellucidi. Cerebellum.Cisterna magna. Thalami. Face Lips. Profile. Nose. Heart / Thorax 4-chamber view. RVOT view. LVOT view.7-wzbpit-lnofbis view. Diaphragm. Abdomen Stomach. Kidneys. Bladder. Spine Cervical spine. Thoracic spine.Lumbar spine. Sacral spine. sex: female. Fetus 1: DOPPLER ----- Umbilical Artery: PI 1.1791% Kunal HR 143bpm Mid Cerebral Artery: normal PS 59.31cm/s PS 1.31MoM Fetus 2: DOPPLER ----- Umbilical Artery: normal PI 1.1791% Kunal HR 131bpm Mid Cerebral Artery: normal PS 47.52cm/s PS 1.05MoM MATERNAL STRUCTURES ----- Cervix Suboptimal Right Ovary Not examined Left Ovary Not examined Fetus 1: NON STRESS TEST ----- NST interpretation: reactive. Test duration 45 min. Baseline FHR 135 bpm.Baseline variability: moderate. Accelerations: present. Decelerations:absent. Uterine activity: present Fetus 2: NON STRESS TEST ----- NST interpretation: reactive. Test duration 45 min. Baseline FHR 130 bpm.Baseline variability: moderate. Accelerations: present. Decelerations:absent. Uterine activity: present RECOMMENDATION ----- Thank-you for referring your patient to assess for signs of TTTS/TAPS dueto monochorionic twin . We discussed the findings on today's ultrasound with the patient. Selective growth restriction We discussed that there are 3 main types of selective growthrestriction depending on the blood flow through the umbilical cord. 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 We discussed that thistype is often due to balanced A-A and A-V shunting and has a low risk of deterioration withexcellent outcomes. We discussed that Type 2 and Type 3 are associatedwith either persistent or intermittent absent end diastolic flow and are more likely to beassociated with adverse outcomes. We discussed that this might alsoindicate an increased risk of developing TTTS. - Weekly TTTS/TAPS evaluations with NST - Repeat growth in 3 weeks. - Discussed would anticipate delivery at 36-37 weeks if parameters remainstable, though will refine delivery recommendations at the next growthUS. - Cerclage removal at 36 weeks, unless otherwise clinically indicatedsooner. - Advised patient to discuss mode of delivery with her primary clinic,though discussed potential scenarios with twins. Return to primary provider for continued care. If you have questions regarding today's evaluation or if we can be offurther service, please contact the [facility]. anomalies may be present but not detected I spent a total of 20 minutes on the date of this encounter includingpreparing to see the patient (reviewing medical records/tests), counselingand discussing the plan of care, documenting the visit in the electronic medical record, andcommunicating with other health youth career specialist and/or carecoordination. IMPRESSION ----- Monochorionic diamniotic twin gestation at 32w 3d gestational age. Fetus 1 (new growth restriction) 1. None of the anomalies commonly detected by ultrasound were evident inthe detailed anatomic survey described above. 2. Growth parameters and estimated weight were consistent with fetalgrowth restriction with the EFW at 9%. 3. The amniotic fluid volume appeared normal. [...] appropriate forgestational age. The inter-twin discordance was 12.6%. 3. The amniotic fluid volume appeared normal. A normal bladder wasvisualized. 4. The umbilical artery Doppler studies were within normal limits. 5. The middle cerebral artery Doppler studies were within normal limits. Today's ultrasound does not support a diagnosis of twin twin transfusionsyndrome or twin anemia polycythemia syndrome. us Raya Dickens MD [facility] ORDERABLES Edit ed Result - Final documented in this encounter Visit Diagnoses Diagnosis Monochorionic diamniotic twin gestation in second trimester documented in this encounter Care Teams Pants Busheler Relationship Specialty Start Date End Date No Ref-Primary, Physician PCP - General 07/22/23 Mica Aguilar MD [address] [address] Assigned OBGYN Provider 08/31/2312/29 documented as of this encounter
--- OUTSIDE RECORDS SUMMARY | 2024-02-10 14:48 | XMS_ITS | Encounter Summary ---
Author Organization [place] Address [address] [facility] [place] [address] Care Team Providers Care Picker Operator Name Role Phone No Ref-Primary, Physician Primary Care Provider Mica Aguilar MD Unavailable [phone] Reason for Visit * Reason Comments Ultrasound RL2/MCA/UAR- M/D MYRTLE WTH, A: EFW 11% Encounter Details Date Type Department Care Team (Latest Contact Info) Description 11/21/2023 10:45 AM CDT Office Visit [facility] [place] [address] [facility] [address] [place] [address] Tomasa Dickens MD [address] [place] [address] Nitin Morris MD [address] [place] [address] Monochorionic diamniotic twin gestation in [...] Aguillon RN - 11/21/2023 10:45 AM CDT injection operator used via IPAD during MFM appointment. Patient reports movement x2, denies pain, contractions, leaking of fluid, or bleeding. Reports passing GCT in [place]. Patient denies headache, visual changes, nausea/vomiting, epigastric pain related to preeclampsia. SBAR given to MFM MD, see their note in Epic. documented in this encounter Plan of Treatment Not on file documented as of this encounter Visit Diagnoses Diagnosis 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- Primary documented in this encounter Care Teams Picker Operator Relationship Specialty Start Date End Date No Ref-Primary, Physician PCP - General 07/22/23 Mica Aguilar MD [address] [place] [id number] Assigned OBGYN Provider 08/31/2312/29 documented as of this encounter
--- OUTSIDE RECORDS SUMMARY | 2024-02-10 14:48 | XMS_ITS | Encounter Summary ---
Author Organization [place] Address [address] [facility] [place] [address] Care Team Providers Care Welder Apprentice Gas Name Role Phone No Ref-Primary, Physician Primary Care Provider Mica Aguilar MD Unavailable [phone] Encounter Details Date Type Department Care [...] on filedocumented in this encounter Care Teams Welder Apprentice Gas Relationship Specialty Start Date End Date No Ref-Primary, Physician PCP - General 07/22/23 Mica Aguilar MD [address] [place], [place] [address] Assigned OBGYN Provider 08/31/2312/29 documented as of this encounter
--- OUTSIDE RECORDS SUMMARY | 2024-02-10 14:48 | XMS_ITS | Encounter Summary ---
Author Organization [place] Address [address] [facility] [place] [address] Care Team Providers Care Compressed Gases Tester Name Role Phone No Ref-Primary, Physician Primary Care Provider Mica Aguilar MD Unavailable [phone] Encounter Details Date Type Department Care [...] on filedocumented in this encounter Care Teams Compressed Gases Tester Relationship Specialty Start Date End Date No Ref-Primary, Physician PCP - General 07/22/23 Mica Aguilar MD [address] [place], [place] [address] Assigned OBGYN Provider 08/31/2312/29 documented as of this encounter
--- OUTSIDE RECORDS SUMMARY | 2024-02-10 14:48 | XMS_ITS | Encounter Summary ---
Author Organization [place] Address [address] [facility] [place] [address] Care Team Providers Care Breaker Off Name Role Phone No Ref-Primary, Physician Primary Care Provider Mica Aguilar MD Unavailable [phone] Reason for Visit * Reason Comments Ultrasound RL2/UAR/MCA-M/D twin s, Twin A: EFW 12% Encounter Details Date Type Department Care Team (Latest Contact Info) Description 11/07/2023 2:00 PM CDT Office Visit [facility] [place] [address] [facility] [address] [place] [address] Angelica Wright MD [address] [place] [address] Monochorionic diamniotic twin gestation in [...] in this encounter Nursing Notes * Blank uJarez, RN - 11/07/2023 2:00 PM CDT Patient presents to [facility] for RL2/UAR/MCA at 26w3d due to M/D twins, Twin A: EFW 12%. Positive movement x2. Denies LOF, vaginal bleeding or cramping/contractions. SBAR given to [facility] MD, see their note in Epic. documented in this encounter Plan of Treatment Not on file documented as of this encounter Visit Diagnoses Diagnosis Monochorionic diamniotic twin gestation in second trimester- Primary documented in this encounter Care Teams Breaker Off Relationship Specialty Start Date End Date No Ref-Primary, Physician PCP - General 07/22/23 Mica Aguilar MD [address] [facility] [address] [place], [place] [id number] Assigned OBGYN Provider 08/31/2312/29 documented as of this encounter
--- OUTSIDE RECORDS SUMMARY | 2024-02-10 14:48 | XMS_ITS | Encounter Summary ---
Author Organization [place] Address [address] [facility] [place] [address] Care Team Providers Care Laminator Printed Circuit Boards Name Role Phone No Ref-Primary, Physician Primary Care Provider Mica Aguilar MD Unavailable [phone] Encounter Details Date Type Department Care [...] on filedocumented in this encounter Care Teams Laminator Printed Circuit Boards Relationship Specialty Start Date End Date No Ref-Primary, Physician PCP - General 07/22/23 Mica Aguilar MD [address] [place], [place] [address] Assigned OBGYN Provider 08/31/2312/29 documented as of this encounter
--- OUTSIDE RECORDS SUMMARY | 2024-02-10 14:48 | XMS_ITS | Clinical Summary ---
Author Organization [facility] Address [place], [place] [address] Care Team Providers Care Building Drafting Officer Name Role Phone None Primary Care Provider [...] 66 06/24/2023 7:14 PM CDT Temperature 37 C (98.6 F) 06/24/2023 3:49 PM CDT Respiratory Rate 18 06/24/2023 3:49 PM CDT Oxygen Saturation 100% 06/24/2023 7:14 PM CDT Inhaled Oxygen Concentration - - Weight 70.8 kg (156 lb) 06/24/2023 3:49 PM CDT Height 154.9 cm (5' 1) 06/24/2023 4:01 PM CDT Body Mass Index 29.48 06/24/2023 3:49 PM CDT Plan of Treatment Not on file Care Teams Building Drafting Officer Relationship Specialty Start Date End Date None . PCP - General 06/23/23
--- OUTSIDE RECORDS SUMMARY | 2024-02-10 14:48 | XMS_ITS | Encounter Summary ---
Author Organization [place] Address [address] [facility] [place] [address] Care Team Providers Care Verification Specialist Name Role Phone No Ref-Primary, Physician Primary Care Provider Mica Aguilar MD Unavailable [phone] Reason for Visit * Reason Comments Ultrasound RL2/UAR/MCA-mono/di twins, TTTS check Encounter Details Date Type Department Care Team (Late st Contact Info) Description 12/05/2023 2:45 PM CDT Office Visit [facility] [place] [address] [facility] [address] [place] [address] Didi Daniel MD [address] [facility] [address] [place], [place] [address] 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 [...] was seen for an ultrasound in the [facility] today. For a [...] 12/05/2023 2:45 PM CDT Kyara presents to [facility] for TTTS check. Anguillan interpter used for visit today via IPAD electric meter installer helper ID#[id number]. Patient reports good movement, denies contractions, leaking of fluid, or bleeding. SBAR given to [facility] , see their note in Epic. documented in this encounter Plan of Treatment Not on file documented as of this encounter Visit Diagnoses Diagnosis 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- Primary documented in this encounter Care Teams Verification Specialist Relationship Specialty Start Date End Date No Ref-Primary, Physician PCP - General 07/22/23 Mica Aguilar MD [address] [place], [place] [address] [address] Assigned OBGYN Provider 08/31/2312/29 documented as of this encounter
[2024-02-20 18:44] LABS: Pap Test Reviewed by Path Done
[2024-02-21 16:11] LABS: HPV High Risk Detected
[2024-02-22 07:36] LABS: HPV Genotype 16 Not Detected; HPV Genotype 18/45 Detected; HPVG Source Cervical
== END 2024-02-10 14:45 | disposition home or self-care (01) ==
LOC: NFLDREF 14:44
PROVIDERS: Visit Provider Physician Assistant
DX: Z12.4 Encounter for screening for malignant neoplasm of cervix (principal); Z39.2 Encounter for routine postpartum follow-up
CPT/HCPCS: 87624; 87625; 88141; 88142

== ENCOUNTER 2024-11-16 17:17 | Outpatient (CLI) | payer BC, SELFPAY ==
[2024-11-16 22:09] LABS: Bacterial Vaginosis* Negative (Negative); Candida glab/krus NOT DETECTED (No Detected)
[2024-11-16 22:40] LABS: Chlamydia DNA Amplified* NOT DETECTED (No Detected); GC DNA Amplified* NOT DETECTED (No Detected)
== END 2024-11-16 17:18 | disposition home or self-care (01) ==
PROVIDERS: Visit Provider Registered Nurse
DX: N89.8 Other specified noninflammatory disorders of vagina (principal)
CPT/HCPCS: 81513; 83001; 83498; 84146; 84270; 84402; 84403; 84443; 87086; 87481; 87491; 87591; 87661; T1013

== ENCOUNTER 2024-12-03 13:49 | Outpatient (CLI) | payer BC, SELFPAY ==
--- NOTE | 2024-12-03 14:00 | CRLHL7_ITS ---
For Patients: As a result of the Century Cures Act, medical imaging exams and procedure reports are released immediately into your electronic medical record. You may view this report before your referring provider. If you have questions, please contact your health care provider. INDICATION: Oligomenorrhea with Menorrhagia COMPARISON: None. TECHNIQUE: 2D ramírez-scale and color Doppler images were acquired of the pelvis using a transabdominal and transvaginal approach. Transvaginal imaging performed to better visualize the endometrial stripe and ovaries. FINDINGS: Sonographic images demonstrate a normal size and smooth outer contour of the uterus. Uterus measures 8.8 cm in length by 4.2 cm in AP diameter by 5.4 cm in transverse dimension. The myometrium has a normal uniform echotexture. The endometrial lining appears thickened and measures 16.8 mm in composite thickness. IUD is present within the endometrial canal 5.3 millimeters from the fundal endometrial margin. The right ovary measures 3.5 x 2.1 x 2.5 cm in size and the left ovary measures 3.6 x 2.6 x 2.9 cm. The ovaries demonstrate normal arterial and venous blood flow on color Doppler analysis. There are no suspicious fluid collections within the cul-de-sac. Collapsing nonvascular cyst is present within the left ovary which measures 2.1 x 1.5 x 2.1 cm. IMPRESSION: IUD is present in the endometrial canal 5.3 millimeters from the fundal endometrial edge. The endometrium is diffusely thickened and measures up to 16.8 millimeters. No endometrial fluid or uterine fibroid. Dictated by Jose Vaughn MD @ 12/03/2024 4:33:52 PM (Electronically Signed)
== END 2024-12-03 13:50 | disposition home or self-care (01) ==
LOC: US 13:50
PROVIDERS: Visit Provider Registered Nurse
DX: N91.5 Oligomenorrhea, unspecified (principal); R93.89 Abnormal findings on diagnostic imaging of other specified body structures; N92.0 Excessive and frequent menstruation with regular cycle
CPT/HCPCS: 76830; 76856; T1013